=== PATIENT | female | born 1975 | race Caucasian/White ===

== ENCOUNTER 2017-08-24 09:02 | Emergency (ER) | payer OTHER, SELFPAY ==
[2017-08-24 09:03] VITALS: BP 119/74; PULSE 90; RESP 18; TEMP 36.6; O2SAT 98; BMI 35.4
--- NOTE | 2017-08-24 09:13 | ED.VISSUMM ---
- ER Visit Summary Date of Service: 08/24/17 Chief Complaint: Dental pain History of Present Illness: The patient is a 42 F who is otherwise healthy presents to the emergency department dental pain. Patient had symptoms for the past few days. She has widespread dental disease. She last saw dentist a few months ago. She states that she needs most all of her teeth pulled. Over the past 2 days, the pain is worsened. She began to have some swelling in her right cheek today. She denies any trouble speaking or swallowing. She denies any fevers or chills. She has been taking ibuprofen with some relief. Physical Examination: Afebrile, vitals unremarkable. Well-appearing female no acute distress. Posterior oropharynx is widely patent. There is no trismus. There is no stridor. Submental space is soft. Neck is supple. Patient is widespread dental disease. There is tenderness to palpation over cavity of tooth #5. There is no focal abscess. There is minimal swelling of the vehicle mucosa on the right. Test Results: [] Emergency Department Course and Treatment: Patient has no evidence of Andrew angina. Submental space is soft. There is no cellulitis. The patient will be treated with Augmentin and Naprosyn. She does have dental follow-up in place. She will be discharged home, return with any worsening symptoms. Treatment Plan: [] Disposition: Charge Impression: 1. Dental pain 2. Periapical abscess This note was generated with [employer] dictation software. It may contain incorrect words, spelling, and punctuation that were not noted in review of the chart prior to signing ED Disposition - Plan for ED Patient: Chief Complaint: Dental Instructions: ED Abscess Dental Prescriptions: Amox/Clavulanate Tablet [Augmentin Tablet] 875 mg PO Q12H #20 tab Naproxen [Naprosyn] 500 mg PO BID PRN #20 tab Referrals: Care Physician,No Primary [Primary Care Provider] -
[2017-08-24] MEDS: Naproxen 500 MG Tablet PO (09:45)
[2017-08-24] MEDS: Amox/Clavulanate 875 MG Tablet PO (09:45)
== END 2017-08-24 09:59 | disposition home or self-care (01) ==
PROVIDERS: Emergency Provider Emergency Medicine
DX: K04.7 Periapical abscess without sinus (principal); K02.9 Dental caries, unspecified; K08.89 Other specified disorders of teeth and supporting structures; Z87.891 Personal history of nicotine dependence
CPT/HCPCS: 99282

== ENCOUNTER → 2017-11-18 13:59 | Outpatient (CLI) | payer OTHER, SELFPAY ==
--- NOTE | 2017-11-18 15:22 | NEURO ---
NCS and/or EMG Patient Report Ordering Doctor: Ron Funez DATE OF SERVICE: 11/18/17 Faustina Glasgow is a 42-year-old female presents for electrodiagnostic testing of the upper limbs. She reports numbness and tingling in both hands, worse on the right side. Electrodiagnostic findings: Right median motor nerve demonstrates prolonged distal latency with reduced amplitude and normal conduction velocity. Normal left median motor response normal ulnar motor response bilaterally. Median and ulnar F waves are within normal limits. Prolonged right median sensory latency at the wrist. Needle EMG testing shows no evidence of denervation with normal motor unit action potentials. Electrodiagnostic impression: This is an abnormal study. 1. Electrodiagnostic findings demonstrate right-sided median mononeuropathy. This is consistent with a moderate right carpal tunnel syndrome. There is no electrodiagnostic evidence for left-sided carpal tunnel syndrome If there are any further questions please do not hesitate to contact me.
== END ==
PROVIDERS: Visit Provider Specialist
DX: G56.03 Carpal tunnel syndrome, bilateral upper limbs (principal)
CPT/HCPCS: 95886; 95912

== ENCOUNTER 2018-02-09 16:30 | Outpatient (RCR) | payer OTHER, SELFPAY ==
--- NOTE | 2018-01-26 18:34 | HP.OTEVAL ---
Patient's Visit Information LADARIUS FIGUEROA is a 42 year old F, referred to Occupational Therapy by VON Barnett, with a diagnosis of carpal tunnel right/pain left wrist. Date of Evaluation: 01/26/18 Occupational Therapist: Shayla Srivastava - Subjective Subjective: Pt seen for initial occupational therapy evaluation for carpel tunnel release R hand December 11 2017 and has occassional pain in L hand that comes and goes. 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 Pt has been off work since sx. Pt is R hand dominent. Pt able to complete BADL's independently, pt has difficulty opening containers at this time. - Pain Right Hand 4 Pain Intensity Range: 3, 9 Left Hand 0 - Objective Objective/Observation: decreased ROM and strength R hand, increased pain with movement of R hand - ROM Wrist: R 43/77 L 50/85 ROM Comments: RUE and L UE able to complete opposition and make composite fist all without difficulty. 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 Pt will progress w/ R tripod pinch from 0# to 8# by d/c from OT services to increase independence with functional living tasks. Goal:: Pt will progress w/ R AROM wrist flexion and extension by 7' by d/c from OT services to increase independence with functional living tasks. Goal:: Pt will demo no pain R wrist/hand greater than 1/10 by d/c from OT services. Pt will demo no pain L wrist with movement greater than 1/10 by d/c from OT services. Goal:: Pt will be educated on scar massage techniques to complete at home and techniques to decrease hypersensitivity of scar R hand with good understanding and demo 100%x. Goal:: Pt will be educated on joint protection/energy conservation techniques R and L wrist/hand with good understanding and demo 100%x Goal:: Pt will be educated on R UE HEP with good understanding and demo 100%x. - Rehabilitation General Assessment: Pt demo decreased strength and ROM of R wrist/hand limiting indep with ability to open containers and use R dominent hand for functional tasks. Pt has increased pain R hand/wrist as well as occassionally in L wrist. Pt would benefit from direct occupational therapy services to increase strength and AROM R wrist/hand, decrease pain of R and L wrists, educate on scar massage techniques, ways to decrease hypersensitivity of scar, educate on joint protection/energy conservation techniques and R UE HEP to increase pt's quality of life and return to PLOF. Rehabilitation Potential: Good - Anticipated Interventions Anticipated Interventions: A/AAROM/PROM, Strengthening, Edema Control, Scar Care, Massage, Desensitization, Modalities, Joint Protection/Energy Conservation, Fine Motor Coord/Jose Antonio, ADL Training, Education re assistive Equipment, Education re Diagnosis, Education re Self Massage Techniques, Home Program - Visit Plan Frequency: 1-2x /Week Duration: 4-6 Weeks General Plan: Pt would benefit from direct occupational therapy services to increase strength and AROM R wrist/hand, decrease pain of R and L wrists, educate on scar massage techniques and ways to decrease hypersensitivity of scar, educate on joint protection/energy conservation techniques and R UE HEP to increase pt's quality of life and return to PLOF. TEXT: Thank you for the opportunity to evaluate your patient. For Medicare and Medicare HMO plans, please review the plan of care and approve it. It will need to be FAXED BACK to us at [phone] for Medicare purposes. Please let me know if there are questions or concerns regarding this plan of care. Physician Signature: Date:
== END 2018-02-09 19:00 | disposition home or self-care (01) ==
LOC: OT 16:30
PROVIDERS: Referring Provider Physician Assistant Surgical; Visit Provider Physician Assistant Surgical
DX: M25.532 Pain in left wrist (principal); G56.01 Carpal tunnel syndrome, right upper limb
CPT/HCPCS: 97035; 97110; 97165; 97166

== ENCOUNTER 2023-07-30 16:14 | Emergency (ER) | payer OTHER, SELFPAY ==
[2023-07-30 16:14] VITALS: BP 219/80; PULSE 119; RESP 18; TEMP 36.8; O2SAT 98; BMI 36.0
--- NOTE | 2023-07-30 16:28 | EKG12_ITS ---
Test Reason : Blood Pressure : / mmHG Vent. Rate : 091 BPM Atrial Rate : 091 BPM P-R Int : 174 ms QRS Dur : 088 ms QT Int : 362 ms P-R-T Axes : 062 051 034 degrees QTc Int : 445 ms Normal sinus rhythm Normal ECG Confirmed by Natalio Brice ([id number]), commercial production editor BIGG MORILLO ([id number]) on 07/31/2023 10:14:42 AM Referred By: Confirmed By:Natalio Brice
--- NOTE | 2023-07-30 16:29 | CT_ITS ---
EXAMINATION : Head CT w/out contrast HISTORY : headache COMPARISON : None. TECHNIQUE : Multiple contiguous axial images were obtained from the skull base to the vertex without intravenous contrast. A radiation dose optimization technique was used for this scan. FINDINGS : The ventricles and sulci are normal in size. There is no evidence for acute intracranial hemorrhage, mass effect, or midline shift. There is no extra-axial fluid collection. There is normal muñoz-white differentiation, without CT evidence of acute ischemia or infarct. The skull base and calvarium are unremarkable. The orbits are unremarkable. The paranasal sinuses are clear. The mastoid air cells are well-aerated. The soft tissues are unremarkable. CT/Brain/Head without Contrast IMPRESSION: No acute intracranial abnormality. Electronically Signed: Jean Echavarria MD at 17:12 EDT ,
--- NOTE | 2023-07-30 16:30 | EDS_ITS ---
HPI <ROSSI Barragan - Last Filed: 07/30/23 20:40> History of Present Illness Chief Complaint: Dizziness Narrative Narrative: Patient is a 48-year-old female who does not see primary care physician who has no known medical history presents to the emerged department with a sudden onset of dizziness, which she describes of near passing out. Patient states that she had a headache, had numbness and tingling throughout her entire body. Patient states this happened at approximately 2:45 PM today. Patient states she had to sit down, thought she was better than when she got up to walk again, she almost fell like she was going to fall down. Patient denies any chest pain. Patient dates she then got very anxious and was brought here by family. She denies any significant pain however she states that she is having difficulty describing how she feels. PFSH <ROSSI Barragan - Last Filed: 07/30/23 20:40> [facility] Medical History (Updated 07/30/23 @ 20:[address] Arden Ortiz DO) Cholecystectomy planned Allergy/AdvReac Type Severity Reaction Status Date / Time No Known Allergies Allergy Verified 07/30/23 16:15 Surgical History (Updated 07/30/23 @ 16:36 by Enma Nguyễn) H/O: Social History Smoking Status: Current every day smoker tobacco type: cigarettes ROS <ROSSI Barragan - Last Filed: 07/30/23 20:40> ROS ED ROS Narrative Constitutional: Negative for fever, chills, weight loss, weakness Eyes: Negative for vision loss, vision change, double vision ENT: Negative for any sore throat, ear pain, congestion Cardiovascular: Negative for any chest pain, tightness, palpitations Respiratory: Negative for any cough, sputum production, hemoptysis, dyspnea, dyspnea on exertion, orthopnea Gastrointestinal: Negative for any abdominal pain, nausea, vomiting, diarrhea, constipation, blood in stool, blood in vomit : Negative for any urinary frequency, dysuria, retention, blood in urine Muscle skeletal: Negative for any neck pain, back pain Neurological: Positive feeling of headache, dizziness, feelings of full body numbness and tingling. Positive for near syncope Skin: Negative for any rashes, itching, abrasions, lacerations Psychiatric: Negative for any depression, stress, suicidal ideation, homicidal ideation. Positive for anxiety Hematologic: Negative for any excessive bruising, easy bleeding EXAM <ROSSI Barragan - Last Filed: 07/30/23 20:40> Physical Exam Narrative Exam Narrative: Vital signs reviewed. Patient appears anxious, however patient alert acting appropriate. HEET: Head normocephalic atraumatic, TMs clear bilaterally. Posterior pharynx is clear, moist mucous membranes. Nares clear bilaterally. Neck: Supple with no lymphadenopathy or tenderness. No signs of meningismus. Cardiac: Tachycardic rate no murmurs gallops or rubs, equal peripheral pulses bilaterally. Respiratory: Lungs clear to auscultation bilaterally. No chest tenderness. Abdomen: Soft, nontender, nondistended. No abdominal bruit or pulsatile masses. No hepatosplenomegaly Extremities: No peripheral edema, no signs of gross trauma or deformity. Active full range of motion of all extremities. Neuro: Cranial nerves II through XII intact, no focal neurological deficits. NIH stroke scale 0 Skin: Clean dry and intact with no rash, purpura, petechiae, vesicles or pustules. Backs/flank: No CVA tenderness, no midline spinal tenderness, no deformity. Psych: Normal mood and affect. No SI, HI or acute psychosis. Const Vital Signs: 07/30/23 16:14 07/30/23 16:35 07/30/23 16:37 Temperature 98.3 F Temperature Source Temporal Pulse Rate 119 H Respiratory Rate 18 Respiratory Effort Respiratory Pattern Blood Pressure 219/80 H 169/99 H Blood Pressure Mean 126 122 Pulse Ox 98 Oxygen Delivery Method Room Air Room Air 07/30/23 16:39 07/30/23 17:14 07/30/23 18:00 Temperature Temperature Source Pulse Rate 85 89 Respiratory Rate 17 19 H Respiratory Effort Normal Respiratory Pattern Normal Blood Pressure 129/67 H 149/67 H Blood Pressure Mean 87 94 Pulse Ox 97 96 Oxygen Delivery Method Room Air Room Air 07/30/23 20:44 Temperature 97.8 F Temperature Source Pulse Rate 70 Respiratory Rate 16 Respiratory Effort Respiratory Pattern Blood Pressure 139/48 H Blood Pressure Mean 78 Pulse Ox 95 Oxygen Delivery Method Positive well nourished and well developed General Appearance ED: well developed <Dr. Arden Ortiz DO - Last Filed: 07/30/23 23:17> Physical Exam Const Vital Signs: 07/30/23 16:14 07/30/23 16:35 07/30/23 16:37 Temperature 98.3 F Temperature Source Temporal Pulse Rate 119 H Respiratory Rate 18 Respiratory Effort Respiratory Pattern Blood Pressure 219/80 H 169/99 H Blood Pressure Mean 126 122 Pulse Ox 98 Oxygen Delivery Method Room Air Room Air 07/30/23 16:39 07/30/23 17:14 07/30/23 18:00 Temperature Temperature Source Pulse Rate 85 89 Respiratory Rate 17 19 H Respiratory Effort Normal Respiratory Pattern Normal Blood Pressure 129/67 H 149/67 H Blood Pressure Mean 87 94 Pulse Ox 97 96 Oxygen Delivery Method Room Air Room Air 07/30/23 20:44 Temperature 97.8 F Temperature Source Pulse Rate 70 Respiratory Rate 16 Respiratory Effort Respiratory Pattern Blood Pressure 139/48 H Blood Pressure Mean 78 Pulse Ox 95 Oxygen Delivery Method MDM <ROSSI Barragan - Last Filed: 07/30/23 20:40> [facility] Lab Data Labs: Laboratory Results - last 24 hr 07/30/23 07/30/23 16:30 19:15 WBC 8.4 RBC 5.44 H Hgb 14.7 Hct 45.3 MCV 83.3 MCH 27.0 MCHC 32.5 RDW Std Deviation 43.0 RDW Coeff of Leia 14.3 Plt Count 251 MPV 10.4 Immature Gran % (Auto) 0.200 Neut % (Auto) 50.1 Lymph % (Auto) 44.5 H [place] % (Auto) 3.6 Eos % (Auto) 1.2 Baso % (Auto) 0.4 Absolute Neuts (auto) 4.2 Absolute Lymphs (auto) 3.76 Nucleated RBC % 0 Sodium 138 Potassium 3.3 L Chloride 105 Carbon Dioxide 25.0 Anion Gap 8 BUN 12 Creatinine 1.02 Estim Creat Clear Calc 71.21 Est GFR (MDRD) Af Amer 74 Est GFR (MDRD) Non-Af 61 BUN/Creatinine Ratio 11.8 Glucose 109 H Calcium 9.3 Troponin I High Sens 4 11 TSH 5.96 H Free T4 0.95 Radiography Diagnostic Testing: Clinical Impression(s) from Imaging Studies Brain CT 07/30/23 16:29 IMPRESSION: No acute intracranial abnormality. Electronically Signed: Jean Echavarria MD at 17:12 EDT , ADDENDUM: 07/30/23 1737 IMPRESSION: undefined Chest X-Ray 07/30/23 17:00 IMPRESSION: No acute radiographic abnormalities. Electronically Signed: Jean Echavarria MD at 17:56 EDT , Brain MRI 07/30/23 17:41 IMPRESSION: Small right frontal lobe lesion most likely representing meningioma. Otherwise normal MRI of the brain with and without contrast Electronically Signed: Lamin Cordova MD at 19:22 EDT , EKG Normal sinus rhythm: Attestation: I personally reviewed and interpreted this EKG as follows: Comments: Normal sinus rhythm, rate of 91 bpm, HI interval 174 ms, no acute ST elevation, no acute infarct noted. Treatment and Re-Evaluation :: Differential diagnosis includes however is not limited to: CVA/TIA, SC, ACS, dehydration, anxiety attack, hypertensive urgency Patient laboratory values showed a normal CBC, patient's chemistries show slight hypokalemia with a potassium of 3.3, glucose is 109. TSH was slightly elevated at 5.96. Patient did receive a CT scan of the brain, this showed a 1 cm hyperattenuating extra-axial lesion in the right frontal convexity with calcifications and a broad dural based. There is some mild erosive changes of the adjacent colon area. This lesion most likely represents a calcified meningioma, however recommend brain MRI with and without contrast for definitive diagnosis. Secondary to this finding, the patient having head pressure, near syncopal episodes, patient will receive a brain MRI with and without contrast. Patient's blood pressure did decrease to 169/99. On reevaluation, patient was feeling better. Patient's troponin were negative. Patient's MRI of the brain shows small right frontal lobe lesion most likely representing meningioma, otherwise normal MRI of the brain. Chest x-ray was unremarkable. Patient be ambulated without any difficulty. Patient is stable for discharge. She will follow-up with neurology. She was given strict return precaution. Patient stable for discharge. <Dr. Arden Ortiz, DO - Last Filed: 07/30/23 23:17> [facility] Lab Data Attestation: I reviewed the patient's lab results. Labs: Laboratory Results - last 24 hr 07/30/23 07/30/23 16:30 19:15 WBC 8.4 RBC 5.44 H Hgb 14.7 Hct 45.3 MCV 83.3 MCH 27.0 MCHC 32.5 RDW Std Deviation 43.0 RDW Coeff of Leia 14.3 Plt Count 251 MPV 10.4 Immature Gran % (Auto) 0.200 Neut % (Auto) 50.1 Lymph % (Auto) 44.5 H [place] % (Auto) 3.6 Eos % (Auto) 1.2 Baso % (Auto) 0.4 Absolute Neuts (auto) 4.2 Absolute Lymphs (auto) 3.76 Nucleated RBC % 0 Sodium 138 Potassium 3.3 L Chloride 105 Carbon Dioxide 25.0 Anion Gap 8 BUN 12 Creatinine 1.02 Estim Creat Clear Calc 71.21 Est GFR (MDRD) Af Amer 74 Est GFR (MDRD) Non-Af 61 BUN/Creatinine Ratio 11.8 Glucose 109 H Calcium 9.3 Troponin I High Sens 4 11 TSH 5.96 H Free T4 0.95 Radiography Diagnostic Testing: Clinical Impression(s) from Imaging Studies Brain CT 07/30/23 16:29 IMPRESSION: No acute intracranial abnormality. Electronically Signed: Jean Echavarria MD at 17:12 EDT , ADDENDUM: 07/30/23 1737 IMPRESSION: undefined Chest X-Ray 07/30/23 17:00 IMPRESSION: No acute radiographic abnormalities. Electronically Signed: Jean Echavarria MD at 17:56 EDT , Brain MRI 07/30/23 17:41 IMPRESSION: Small right frontal lobe lesion most likely representing meningioma. Otherwise normal MRI of the brain with and without contrast Electronically Signed: Lamin Cordova MD at 19:22 EDT Reading Location ID and State: [address] [place] [address] Tel , Service support , Treatment and Re-Evaluation :: Differential diagnosis includes however is not limited to: CVA/TIA, SC, ACS, dehydration, anxiety attack, hypertensive urgency Patient laboratory values showed a normal CBC, patient's chemistries show slight hypokalemia with a potassium of 3.3, glucose is 109. TSH was slightly elevated at 5.96. Patient did receive a CT scan of the brain, this showed a 1 cm hyperattenuating extra-axial lesion in the right frontal convexity with calcifications and a broad dural based. There is some mild erosive changes of the adjacent colon area. This lesion most likely represents a calcified meningioma, however recommend brain MRI with and without contrast for definitive diagnosis. Secondary to this finding, the patient having head pressure, near syncopal episodes, patient will receive a brain MRI with and without contrast. Patient's blood pressure did decrease to 169/99. On reevaluation, patient was feeling better. Patient's troponin were negative. Patient's MRI of the brain shows small right frontal lobe lesion most likely representing meningioma, otherwise normal MRI of the brain. Chest x-ray was u nremarkable. Patient be ambulated without any difficulty. Patient is stable for discharge. She will follow-up with neurology. She was given strict return precaution. Patient stable for discharge. Attending note: Patient seen and evaluated with bag machine operator. I perform my own [id number] evaluation. I agree with the plan of work-up. Presenting with sudden lightheaded symptoms and shocking sensation to her body. Tobacco history not seen a doctor in a couple years. Presentation blood pressure 219/90. EKG sinus rhythm no acute findings. Two-view chest x-ray to also read by radiology showed no acute process. Patient nontoxic-appearing no meningismus no focal neurologic deficits. CT brain ordered radiology has meningeal type structure right frontal however recommend MRI for definitive findings. MRI studies with and without contrast ordered returning more likely meningioma. Blood pressure improved without any intervention. Labs are stable. TSH elevated however free T4 at it was normal. She is ambulating on reevaluation no difficulties. Discharged with neurology and PCP follow-up. Discharge Plan Triage Chief Complaint: Dizziness ED Midlevel Provider: Khoi Perez ED Provider: Arden Ortiz Dx/Rx/DC Orders Clinical Impression: Near syncope, Meningioma, cerebral, Headache, Elevated blood pressure reading Instructions: Self-Care for Headaches, ED Hypertension, To Be Confirmed, ED Near-Fainting, Uncertain Cause Primary Care Provider: Care Physician,No Primary Referrals: Lesly Cline MD [Med Staff - Active Staff] - 5-7 Days Compa Bolton MD [Non-Staff -Ordering Privileges] - 1-2 Weeks Care Physician,No Primary [Primary Care Provider] - Activity Restrictions/Additional Instructions: MRI of the brain confirms meningioma structure 1.5 x 1.4 cm right frontal lobe. EKG normal. Elevated blood pressure on arrival improved without any treatment. Need to follow-up internal medicine for recheck. Follow-up with neurology for your meningioma. Print Language: [place] Citizen Disposition Disposition: Home, Self Care Discharge Date/Time: 07/30/23 20:46
[2023-07-30] MEDS: 0.9% Normal Saline (1000mL) 1,000 ML 999 ML IV (16:32)
[2023-07-30 16:37] VITALS: BP 169/99
[2023-07-30 16:48] LABS: Absolute Lymphocyte Count 3.76 X10^3/uL (0.83-4.51); Absolute Neutrophil Count 4.2 X10^3/uL (2.0-7.7); Basophil# 0.03 X10^3/uL; Basophil% 0.4 % (0-1); Eosinophils% 1.2 % (0-5); Hematocrit 45.3 % (37-47); Hemoglobin 14.7 g/dL (12.0-15.0); Lymphocyte # 3.76 X10^3/ul (0.83-4.51); Lymphocyte % 44.5 % (19-41); Mean Corp Hgb Conc 32.5 g/dL (32-36); Mean Corpuscular Volume 83.3 fL (81-99); Mean Platelet Vol. 10.4 fl (6.2-12.0); Monocyte% 3.6 % (0-10); NRBC Flagged by Analyzer 0 % (0-5); Neutrophil # 4.23 X10^3/uL (2.7-7.7); Neutrophil % 50.1 % (47-70); Platelet Count 251 K/mm3 (150-450); RBC Distribution Width CV 14.3 % (11.6-14.6); Red Blood Count 5.44 M/mm3 (4.2-5.4); White Blood Count 8.4 K/mm3 (4.4-11.0)
--- NOTE | 2023-07-30 17:00 | RAD_ITS ---
INDICATION: chest pain EXAMINATION/TECHNIQUE: X-RAY - XR Chest 2 Views COMPARISON: None. FINDINGS: The lungs are clear. Tortuous and calcified thoracic aorta. The heart is not enlarged. No pleural effusion or pneumothorax. No acute osseous abnormalities. RAD/Chest PA and Lateral IMPRESSION: No acute radiographic abnormalities. Electronically Signed: Jean Echavarria MD at 17:56 EDT ,
[2023-07-30 17:12] LABS: Anion Gap 8 (5-15); BUN 12 mg/dL (7-18); BUN/Creat Ratio 11.8 RATIO (10-20); Calcium,Total 9.3 mg/dL (8.5-10.1); Chloride 105 mmol/L (98-107); Creatinine, Serum 1.02 mg/dL (0.55-1.02); EST Glomerular Filtration Rate 61 mL/min (>60); Est Glom Filt Rate - Afr Amer 74 mL/min (>60); Estimated Creatinine Clearance 71.21 ml/min; Glucose 109 mg/dL (74-106); Potassium 3.3 mmol/L (3.5-5.1); Sodium Level 138 mmol/L (136-145); Thyroid Stim Hormone (TSH) 5.96 uIU/mL (0.358-3.74); Troponin-I HS (w/2H Reflex) 4 pg/mL (3.0-54.0)
[2023-07-30 17:14] VITALS: BP 129/67; PULSE 85; RESP 17; O2SAT 97
--- NOTE | 2023-07-30 17:41 | MRI_ITS ---
STUDY: MRI BRAIN WITH AND WITHOUT CONTRAST REASON FOR EXAM: Female, 48 years old. dizziness TECHNIQUE: Standardized multiplanar fat and water weighted pulse sequences were obtained. IV 20CC CLARISCAN was administered for the contrast portion of the examination. COMPARISON: CT of the brain July 30, 2023 FINDINGS: Normal size of the ventricles and extra-axial spaces for the patient''s age. Normal white matter tracts of the supratentorial brain. Normal bilateral basal ganglia. Normal thalami. There is no extra-axial fluid accumulation. Normal flow voids within the major intracranial circulation suggesting patency by spin echo criteria. Normal venous enhancement. There is a relatively homogeneous enhancing dural-based nodule in the right frontal lobe without appreciable edema or mass effect measuring 1.5 x 1.4 cm likely meningioma. Normal sella turcica, pituitary gland, infundibular stalk, optic chiasm and hypothalamus. Normal tectal plate and pineal gland. Normal midbrain, lou and medulla. Normal cerebellum. Normal basal cisterns. Normal bilateral temporal bones. Normal bilateral internal auditory canals. No demonstrated orbital abnormality, within the constraints of a routine brain study. Minor mucosal thickening of left maxillary sinus. Normal calvarium and skull base. Normal visualized soft tissue structures. Normal visualized upper cervical spine. MRI/Brain W/WO Contrast IMPRESSION: Small right frontal lobe lesion most likely representing meningioma. Otherwise normal MRI of the brain with and without contrast Electronically Signed: Lamin Cordova MD at 19:22 EDT ,
[2023-07-30 18:00] VITALS: BP 149/67; PULSE 89; RESP 19; O2SAT 96
[2023-07-30] MEDS: LORazepam 1 MG Tablet PO (18:12)
[2023-07-30 18:37] LABS: Reflex Troponin-HS? (from REC) Y
[2023-07-30 19:45] LABS: Troponin-I HS 11 pg/mL (3.0-54.0)
[2023-07-30 20:16] LABS: T4 Free Direct 0.95 ng/dL (0.76-1.46)
[2023-07-30 20:44] VITALS: BP 139/48; PULSE 70; RESP 16; TEMP 36.6; O2SAT 95
== END 2023-07-30 20:46 | disposition home or self-care (01) ==
PROVIDERS: Nurse Practitioner; Emergency Provider Emergency Medicine; Visit Provider Emergency Medicine
DX: R55 Syncope and collapse (principal); D32.0 Benign neoplasm of cerebral meninges; R03.0 Elevated blood-pressure reading, without diagnosis of hypertension; E87.6 Hypokalemia; F17.210 Nicotine dependence, cigarettes, uncomplicated
CPT/HCPCS: 70450; 70553; 71046; 80048; 84439; 84443; 84484; 85025; 93005; 96360; 96361; 99284; A9575; J7030; A4216

== ENCOUNTER → 2023-08-11 | Outpatient (CLI) | payer OTHER, SELFPAY ==
[2023-08-11 16:32] LABS: Cholesterol 194 mg/dL (200); High Density Lipoprotein 26 mg/dL; Magnesium 2.7 mg/dL (1.6-2.6); Triglycerides 290 mg/dL; Very Low Density Lipoprotein 58 mg/dL (5-40)
[2023-08-11 17:05] LABS: Vitamin B12 401 pg/mL (211-911)
[2023-08-11 17:18] LABS: Hemoglobin A1c 5.6 % (3.8-5.6)
== END | disposition home or self-care (01) ==
LOC: BIMLAB 13:44
PROVIDERS: Nurse Practitioner; PCP Family Medicine; Referring Provider Family Medicine; Visit Provider Family Medicine
DX: Z00.00 Encounter for general adult medical examination without abnormal findings (principal); M79.2 Neuralgia and neuritis, unspecified
CPT/HCPCS: 36415; 80061; 82607; 83036; 83735

== ENCOUNTER 2023-08-16 12:18 | Emergency (ER) | payer OTHER, SELFPAY ==
[2023-08-16 12:19] VITALS: BP 151/85; PULSE 92; RESP 18; TEMP 36.4; O2SAT 98; BMI 35.0
[2023-08-16 13:05] VITALS: BP 151/85; PULSE 92; RESP 18; TEMP 36.4; O2SAT 98
--- NOTE | 2023-08-16 13:05 | RAD_ITS ---
STUDY: X-RAY CHEST REASON FOR EXAM: Female, 48 years old. [place] TECHNIQUE: Single AP portable view of the chest. COMPARISON: 07/30/2023 FINDINGS: The lungs are clear and expanded. There is no demonstrated pleural abnormality. Normal size heart. Normal mediastinum and rosa. Normal visualized pulmonary arteries. Normal visualized aortic arch and descending thoracic aorta. Normal visualized thoracic spine. Normal visualized ribs, clavicles, and shoulders. There is no demonstrated abnormality of the visualized soft tissue structures of the upper abdomen. RAD/Chest 1 View (Portable) IMPRESSION: Normal x-ray examination of the chest. Electronically Signed: Pierre Mayo MD at 13:25 EDT ,
[2023-08-16 13:15] LABS: Absolute Lymphocyte Count 1.93 X10^3/uL (0.83-4.51); Absolute Neutrophil Count 5.1 X10^3/uL (2.0-7.7); Basophil# 0.04 X10^3/uL; Basophil% 0.5 % (0-1); Eosinophil# 0.03 X10^3/uL; Eosinophils% 0.4 % (0-5); Hematocrit 49.9 % (37-47); Hemoglobin 16.1 g/dL (12.0-15.0); Lymphocyte # 1.93 X10^3/ul (0.83-4.51); Lymphocyte % 26.3 % (19-41); Mean Corp Hgb Conc 32.3 g/dL (32-36); Mean Corpuscular Hgb 27.1 pg (27.0-32.0); Mean Platelet Vol. 10.7 fl (6.2-12.0); Monocyte# 0.22 X10^3/uL; NRBC Flagged by Analyzer 0 % (0-5); Neutrophil # 5.11 X10^3/uL (2.7-7.7); Neutrophil % 69.5 % (47-70); Platelet Count 268 K/mm3 (150-450); RBC Distribution Width CV 14.2 % (11.6-14.6); RBC Distribution Width SD 43.4 fl (35.1-43.9); Red Blood Count 5.94 M/mm3 (4.2-5.4); White Blood Count 7.4 K/mm3 (4.4-11.0)
[2023-08-16 13:28] LABS: Anion Gap 6 (5-15); BUN 14 mg/dL (7-18); BUN/Creat Ratio 12.7 RATIO (10-20); Calcium,Total 9.6 mg/dL (8.5-10.1); Chloride 107 mmol/L (98-107); EST Glomerular Filtration Rate 56 mL/min (>60); Est Glom Filt Rate - Afr Amer 68 mL/min (>60); Estimated Creatinine Clearance 69.92 ml/min; Glucose 110 mg/dL (74-106); Potassium 4.1 mmol/L (3.5-5.1); Sodium Level 138 mmol/L (136-145)
--- NOTE | 2023-08-16 14:04 | EKG12_ITS ---
Test Reason : GENERAL Blood Pressure : / mmHG Vent. Rate : 067 BPM Atrial Rate : 067 BPM P-R Int : 144 ms QRS Dur : 078 ms QT Int : 390 ms P-R-T Axes : 023 051 048 degrees QTc Int : 412 ms Normal sinus rhythm Normal ECG Confirmed by Natalio Brice ([id number]), city editor BIGG MORILLO ([id number]) on 08/17/2023 11:24:05 AM Referred By: Confirmed By:Natalio Brice
--- NOTE | 2023-08-16 14:06 | EX.ED.DYSGE1 ---
HPI History of Present Illness Chief Complaint: General Illness Informant: patient Narrative Narrative: 48-year-old female presents for symptoms of just not feeling well for at least 3 weeks. She had the symptoms the last time she was here, which is when she had a CT and an MRI diagnosing a meningioma. She was referred to neurology, but states that she is unable to get into see anyone for an appointment until almost a year away. She followed up with her primary care nurse practitioner who put her on hydroxyzine for the symptoms. She states they are making her feel more tired but have not helped anything. Basically, she states she feels dizzy like she is falling. If she closes her eyes and states still she just feels like she is falling. She is unsure if movements or position changes or head movements are triggering or worsening any of the symptoms, she is just not sure. She denies any presyncopal or syncopal episodes but states it does feel like lightheadedness somewhat but states it feels weird. She states something is wrong she is not sure what. She is also having intermittent shortness of breath and then while she is feeling out of breath she notices that her heart is racing. These are not associated specifically with any dizziness that is worse or different. She denies any chest pressure or heaviness associated with this, but she tends to have tingling all over her body, like I am having a seizure but I am not shaking. It seems to be completely random whenever she gets dyspneic and goes away on its own. She has a mild smoker's cough, and does not know that anything is necessarily been worse. She states yesterday she slept all day. [facility] Medical History Vitamin deficiency Gallstones Carpal tunnel syndrome Cholecystectomy planned Home Medications ?Medication ?Instructions ?Recorded ?Last Taken ?Type meclizine 25 mg tablet 25 mg PO Q8H PRN PRN Dizziness #20 08/16/23 Unknown Rx tabs Allergy/AdvReac Type Severity Reaction Status Date / Time No Known Allergies Allergy Verified 08/16/23 12:19 Family History Mother Diabetes Father Heart disease Myocardial infarction, Onset Age: 46 Surgical History History of carpal tunnel surgery H/O: Social History household members: spouse and children housing: house current occupational status: employed current occupation: [employer] Smoking Status: Current every day smoker tobacco type: cigarettes alcohol intake: never substance use type: does not use what type of physical activity do you participate in: none seatbelt use: always do you feel safe at home: Yes ROS ROS ED Constitutional Constitutional ED: Reports fatigue and malaise; Denies chills or fever(s) Eyes Eyes: Denies change in vision or diplopia ENT ENT ED: Reports as per HPI and vertigo; Denies ear pain, epistaxis, headache(s), hearing loss, nasal congestion, rhinorrhea, sore throat or tinnitus Cardiovascular Cardiovascular: Reports as per HPI and racing heartbeat; Denies chest pain Respiratory/Chest Respiratory/Chest: Reports cough and dyspnea; Denies sputum Gastrointestinal Gastrointestinal: Denies abdominal pain, diarrhea, nausea or vomiting Genitourinary Genitourinary ED: Denies dysuria or hematuria Musculoskeletal Musculoskeletal: Denies back pain or neck pain Integumentary Denies abscess or rash Neurologic Neurologic: Reports paresthesias RUE, RLE, LUE and LLE; Denies headache(s) or weakness Psychiatric Psychiatric: Denies suicidal thoughts EXAM Physical Exam Const Vital Signs: 08/16/23 12:19 08/16/23 13:05 08/16/23 14:11 Temperature 97.6 F L 97.6 F L Temperature Source Temporal Temporal Pulse Rate 92 92 Respiratory Rate 18 18 Respiratory Effort Normal Non-Labored Respiratory Pattern Normal Blood Pressure 151/85 H 151/85 H Blood Pressure Mean 107 107 Pulse Ox 98 98 Oxygen Delivery Method Room Air Room Air 08/16/23 14:18 08/16/23 16:00 Temperature Temperature Source Pulse Rate 67 78 Respiratory Rate 16 18 Respiratory Effort Respiratory Pattern Blood Pressure 112/77 114/72 Blood Pressure Mean 88 86 Pulse Ox 96 97 Oxygen Delivery Method Room Air Room Air Positive well nourished and well developed General Appearance ED: well developed and NAD HEENT Reports moist mucous membranes HEENT Narrative: Left TM with slight erythema but not bulging or loss of light reflex, no perforation or otorrhea, right TM normal. normocephalic and atraumatic Eyes PERRL and EOMs intact bilaterally Neck full ROM and supple Resp normal respiratory effort and clear to auscultation bilaterally Cardio regular rate, regular rhythm and no murmurs GI non-tender and non-distended Auscultation: normoactive bowel sounds Palpation: soft Back/Spine no CVA tenderness General Back: other FROM Extremity normal to inspection General Extremety ED: Negative for edema, pulses abnormal or tenderness General Extremity: Negative for edema or pulses abnormal Neuro oriented x3, CN's II-XII intact bilaterally and no sensory deficits noted Neuro Narrative: NIHSS 0. Normal athcit-vs-txft and cuby-hn-yshn bilaterally. Normal reflexes. No clonus. Downgoing toes. No pathologic nystagmus on ocular exam. 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 No dysarthria. Sensorium / Orientation: awake and alert Motor Exam: strength 5/5 throughout Psych mental status grossly normal Skin no rashes or lesions noted and no wounds MDM MDM MDM Narrative Medical decision making narrative: Patient sounds like she is having and disequilibrium, some type of vertiginous symptoms. Hydroxyzine is not working so good to try meclizine while we are running testing. Her basic labs are all normal, chest x-ray 1 view on my interpretation is normal, I am adding a D-dimer to rule out pulmonary embolus, Monospot to rule out mononucleosis, COVID/influenza/RSV swab to rule out those infections, urinalysis rule out UTI, and EKG and troponin to rule out cardiac etiologies that are acute, and I reviewed her prior ER visit. She was complaining of dizziness then and was saying that it was very hard to describe. She had a CT and an MRI that showed a small frontal meningioma without mass effect, therefore I do not think the mass is necessarily causing the symptoms. Since the MRI did not show any signs of ischemia or any other acute abnormality, and she had the symptoms then, this likely rules out stroke. All of the above tests were negative including the D-dimer. EKG on my interpretation is normal. This is reassuring to the patient and rules out lots of other causes of her feeling poorly. Going back to her symptoms of feeling like she is having movement and falling even when she closes her eyes and remain still, that may be the cause of her symptoms. She does have some asymmetry in her ears with some redness in the left ear. The MRI did not show anything in the left otic area, but since he has been having symptoms for 3 weeks I would refer her to ENT for further evaluation of this. I think this is vestibular until proven otherwise. She was given meclizine here while we were waiting for results, and she felt much better afterwards. I prescribing her this and advising her to discontinue the hydroxyzine. Lab Data Attestation: I reviewed the patient's lab results. Labs: Laboratory Results - last 24 hr 08/16/23 08/16/23 08/16/23 12:40 14:05 15:15 WBC 7.4 RBC 5.94 H Hgb 16.1 H Hct 49.9 H MCV 84.0 MCH 27.1 MCHC 32.3 RDW Std Deviation 43.4 RDW Coeff of Leia 14.2 Plt Count 268 MPV 10.7 Immature Gran % (Auto) 0.300 Neut % (Auto) 69.5 Lymph % (Auto) 26.3 [place] % (Auto) 3.0 Eos % (Auto) 0.4 Baso % (Auto) 0.5 Absolute Neuts (auto) 5.1 Absolute Lymphs (auto) 1.93 Nucleated RBC % 0 D-Dimer Quant (PE/DVT) 0.41 Sodium 138 Potassium 4.1 Chloride 107 Carbon Dioxide 25.0 Anion Gap 6 BUN 14 Creatinine 1.10 H Estim Creat Clear Calc 69.92 Est GFR (MDRD) Af Amer 68 Est GFR (MDRD) Non-Af 56 L BUN/Creatinine Ratio 12.7 Glucose 110 H Calcium 9.6 Troponin I High Sens < 3 L Urine Color Yellow Urine Clarity Clear Urine pH 6.5 Ur Specific [place] 1.010 Urine Protein Negative Urine Glucose (UA) Normal Urine Ketones Negative Urine Occult Blood Negative Urine Nitrite Negative Urine Bilirubin Negative Urine Urobilinogen Normal Ur Leukocyte Esterase Negative Urine RBC 0 SEEN Urine WBC 0 SEEN Ur Squamous Epith Cells 0 SEEN Urine Bacteria 0 SEEN Urine Mucus 0 SEEN Monoscreen Negative Radiography Diagnostic Testing: Clinical Impression(s) from Imaging Studies Chest X-Ray 08/16/23 13:05 IMPRESSION: Normal x-ray examination of the chest. Electronically Signed: Pierre Mayo MD at 13:25 EDT , Rhythm Strip Rhythm Strip: Sinus Rhythm Rate: 90 Ectopy: None EKG Initial EKG: Attestation: I personally reviewed and interpreted this EKG as follows: Interpretation: Sinus Rhythm and No Acute Injury Pattern Comments: normal ekg Discharge Plan Triage Chief Complaint: General Illness ED Provider: Juan Arnett Dx/Rx/DC Orders Clinical Impression: Vestibular disequilibrium Instructions: Vertigo Inner Ear Problems Prescriptions: New meclizine 25 mg tablet 25 mg PO Q8H PRN PRN (Reason: Dizziness) Qty: 20 0RF Discontinued hydroxyzine HCl 25 mg tablet 25 mg PO BID PRN (Reason: anxiety) Qty: 30 0RF Primary Care Provider: Rigoberto Hernandez Referrals: Rigoberto Hernandez DO [Primary Care Provider] - Jan Ty MD [Med Staff - Active Staff] - (call for appt (ENT)) Print Language: Indonesian Disposition Disposition: Home, Self Care
[2023-08-16 14:18] VITALS: BP 112/77; PULSE 67; RESP 16; O2SAT 96
[2023-08-16] MEDS: Meclizine HCl 25 MG Tablet PO (14:20)
[2023-08-16 14:25] LABS: D-Dimer Quantitative (DVT/PE) 0.41 FEU/ug/m (0.27-0.49)
[2023-08-16 14:25] LABS: Internal QC Validated? YES +Cl - CLEAR BKGD; Monotest Negative (Negative); Record Kit Lot#, Mono 13241033
[2023-08-16 14:38] LABS: Troponin-I HS < 3 pg/mL (3.0-54.0)
[2023-08-16 15:19] LABS: Bacteria 0 SEEN /hpf (None Seen); Mucous, Urine 0 SEEN /hpf (<or=2+); Red Blood Cells-Urine 0 SEEN /hpf (0-5); Squamous Epithelial Cells - UA 0 SEEN /hpf (5-10); White Blood Cells 0 SEEN /hpf (0-5)
[2023-08-16 15:36] LABS: Color, Urine Yellow (Yellow); Glucose, Dipstick Normal (Normal); Ketone-Dipstick Negative (Negative); Leukocyte Esterase-Dipstick Negative /ul (Negative); Nitrite-Dipstick Negative (Negative); Occult Blood-Urine Negative /ul (Negative); Protein-Dipstick Negative (Negative); Urine Bilirubin Dipstick Negative (Negative); Urine Clarity Clear (Clear); Urine Urobilinogen Normal (Normal); Urine pH 6.5 (5.0 - 8.0)
[2023-08-16 16:00] VITALS: BP 114/72; PULSE 78; RESP 18; O2SAT 97
[2023-08-16 16:36] VITALS: BP 142/64; PULSE 70; RESP 18; TEMP 36.4; O2SAT 98
== END 2023-08-16 16:44 | disposition home or self-care (01) ==
PROVIDERS: Emergency Provider Emergency Medicine; PCP Family Medicine; Visit Provider Emergency Medicine
DX: H81.90 Unspecified disorder of vestibular function, unspecified ear (principal); J41.0 Simple chronic bronchitis; D32.9 Benign neoplasm of meninges, unspecified; F17.210 Nicotine dependence, cigarettes, uncomplicated; Z79.899 Other long term (current) drug therapy
CPT/HCPCS: 71045; 80048; 81001; 84484; 85025; 85379; 86308; 87631; 93005; 99284

== ENCOUNTER → 2023-08-25 | Outpatient (CLI) | payer OTHER, SELFPAY ==
[2023-08-25 15:36] LABS: Erythrocyte Sedimentation Rate 21 mm/hr (0-30)
[2023-08-25 16:19] LABS: Thyroid Stim Hormone (TSH) 4.87 uIU/mL (0.358-3.74)
[2023-08-28 14:09] LABS: Anti-Centromere B Ab <0.2 AI (0.0-0.9); Anti-Chromatin <0.2 AI (0.0-0.9); Anti-Jo <0.2 AI (0.0-0.9); Anti-Nuclear Antibody Test Negative (.); Anti-Scleroderma-70 AB <0.2 AI (0.0-0.9); Anti-dsDNA Ab <1 IU/mL (0-9); RNP Ab 0.2 AI (0.0-0.9); SJOGREN'S Anti-SS-A test < 0.2 AI (0.0-0.9); SJOGREN'S Anti-SS-B test < 0.2 AI (0.0-0.9); Smith Ab <0.2 AI (0.0-0.9)
== END | disposition home or self-care (01) ==
LOC: BIMLAB 12:04
PROVIDERS: PCP Internal Medicine; Referring Provider Internal Medicine; Visit Provider Internal Medicine
DX: R42 Dizziness and giddiness (principal); R20.8 Other disturbances of skin sensation; R53.83 Other fatigue
CPT/HCPCS: 36415; 82306; 84443; 85652; 86038; 86140; 86225; 86235

== ENCOUNTER 2023-08-28 14:26 | Emergency (ER) | payer OTHER, SELFPAY ==
[2023-08-28 14:27] VITALS: BP 154/72; PULSE 76; RESP 15; TEMP 36.7; O2SAT 99; BMI 35.4
--- NOTE | 2023-08-28 14:32 | RAD_ITS ---
STUDY: X-RAY CHEST REASON FOR EXAM: Female, 48 years old. SOB TECHNIQUE: Single AP portable view of the chest. COMPARISON: Comparison is made with prior study dated 04/17/2023. FINDINGS: The lungs are clear and expanded. There is no demonstrated pleural abnormality. Normal size heart. Normal mediastinum and rosa. Normal visualized pulmonary arteries. Normal visualized aortic arch and descending thoracic aorta. Normal visualized thoracic spine. Normal visualized ribs, clavicles, and shoulders. There is no demonstrated abnormality of the visualized soft tissue structures of the upper abdomen. RAD/Chest 1 View (Portable) IMPRESSION: Normal x-ray examination of the chest. Electronically Signed: Deyvi Olivares MD at 14:59 EDT ,
[2023-08-28 14:37] VITALS: O2SAT 94
--- NOTE | 2023-08-28 15:13 | EX.ED.DYSGE1 ---
HPI <VON Carr - Last Filed: 08/28/23 16:09> History of Present Illness Chief Complaint: Shortness of Breath Narrative Narrative: 48-year-old female states for over a month she has had tingling all throughout her body as well as chest heaviness, heart racing, shortness of breath, and nausea. She states the tingling is almost constant and all over but most intense in her forearms and hands. She states she has been seen for this multiple times in the emergency room. Her most recent visit on 08/16/2023 she also was having disequilibrium and was prescribed meclizine. She is taking meclizine once a day and states the feeling like she is falling over has resolved but the other symptoms persist. She followed up with her primary care doctor, Dr. Annette Ahn, and had a panel of blood work. She is scheduled to have a stress test and tilt table test next month as well as see a neurologist. She was prescribed hydroxyzine but it did not help so she stopped taking it. The only medication she is taking now is meclizine as needed and [id number] GERD medication. She states the tingling and heart racing have been interfering with her working over the last few days and she did not know what to do so she came back to the emergency department. She smokes 5 cigarettes daily. Denies alcohol or drug use. [facility] <VON Carr - Last Filed: 08/28/23 16:09> [facility] Medical History (Updated 08/28/23 @ 15:56 by VON Carr) Vitamin deficiency Gallstones Carpal tunnel syndrome Home Medications ?Medication ?Instructions ?Recorded ?Last Taken ?Type meclizine 25 mg tablet 25 mg PO Q8H PRN PRN Dizziness #20 08/16/23 Unknown Rx tabs [email or web address].stocking,thigh,reg,med #24 ea 08/25/23 Unknown Rx escitalopram oxalate 10 mg tablet 10 mg PO DAILY #30 tabs 08/28/23 Unknown Rx (Lexapro) Allergy/AdvReac Type Severity Reaction Status Date / Time No Known Allergies Allergy Verified 08/28/23 14:29 Family History Mother Diabetes Father Heart disease Myocardial infarction, Onset Age: 46 Surgical History S/P cholecystectomy History of carpal tunnel surgery H/O: Social History adopted: No household members: spouse, family and children housing: house number of children: 5 current occupational status: employed current occupation: [employer] pets and animals: Yes sexually active: Yes Smoking Status: Current every day smoker tobacco type: cigarettes Tobacco: How many years used: 35 Electronic Cigarette Use: not used quit status: considering quitting alcohol intake: never substance use type: does not use caffeine: Yes (4) Type: carbonated beverages what type of physical activity do you participate in: none seatbelt use: always do you feel safe at home: Yes ROS <VON Carr - Last Filed: 08/28/23 16:09> ROS ED ROS Narrative Constitutional: Negative for fever, chills, malaise. CVS: Positive for palpitations, chest heaviness. Respiratory: Negative for shortness of breath, cough. GI: Positive for nausea. No abdominal pain or vomiting. Neuro: Negative for headache. EXAM <VON Carr - Last Filed: 08/28/23 16:09> Physical Exam Narrative Exam Narrative: CONST: Patient sitting in no acute distress. EYES: Normal inspection. NECK: Normal inspection. RESP: No respiratory distress, CTAB. CVS: Regular rate and rhythm, no murmur, no gallop. ABD: Soft and nontender, no guarding or rebound, nondistended. SKIN: Color normal, no rash, warm, dry, intact. EXTREMITIES: Normal appearance, no pedal edema. NEURO: Alert and answering questions appropriately. 5/5 strength upper and lower extremities, normal sensation, 2+ radial DP pulses. Normal finger-nose and rozr-tg-oxmt. Normal gait. PSYCH: Anxious. Const Vital Signs: 08/28/23 14:27 08/28/23 14:37 08/28/23 16:11 Temperature 98.1 F 98 F Temperature Source Temporal Pulse Rate 76 78 Respiratory Rate 15 14 Respiratory Effort Non-Labored Short of Breath Blood Pressure 154/72 H 142/81 H Blood Pressure Mean 99 101 Pulse Ox 99 97 Oxygen Delivery Method Room Air Room Air <Dr. Osvaldo Olsen, - Last Filed: 08/28/23 16:21> Physical Exam Const Vital Signs: 08/28/23 14:27 08/28/23 14:37 08/28/23 16:11 Temperature 98.1 F 98 F Temperature Source Temporal Pulse Rate 76 78 Respiratory Rate 15 14 Respiratory Effort Non-Labored Short of Breath Blood Pressure 154/72 H 142/81 H Blood Pressure Mean 99 101 Pulse Ox 99 97 Oxygen Delivery Method Room Air Room Air MDM <VON Carr - Last Filed: 08/28/23 16:09> [facility] Narrative Medical decision making narrative: Patient presents with constellation of symptoms including diffuse body paresthesias, chest heaviness, palpitations ongoing for a month. She has been evaluated for the symptoms in the ED on 07/29 and 08/15 with no cause found. I reviewed her workup which was very thorough including basic labs, TSH, troponin, D-dimer, viral swab testing, mono, CT brain and MRI brain which were all unremarkable except for a small right frontal meningioma which would not explain her symptoms. Her symptoms have not changed. She is very anxious during my exam. She has a nonfocal neurological exam. Protocol CXR shows no acute findings. I discussed with her I do not think repeating blood work would be of benefit. Since her last visit on 08/15 she reports she saw her primary care doctor and had even more blood work done and she is scheduled for a stress test, tilt table test, and neurology appointment in September. I spoke with Santa the nurse practitioner at her primary care's office. She states she seen the patient twice and Dr. Wright seen her once recently for the symptoms. The patient was asking for [place] paperwork but since they did not know the etiology of her symptoms they did not fill this out. She had offered an SSRI for anxiety but the patient declined stating she did not think it was anxiety so they had agreed to try hydroxyzine as needed. In discussion with the patient today she states she is willing to try something daily for anxiety as this may be contributing. Santa the VALET ATTENDANT recommended Lexapro 10 mg once daily and she will follow-up with their office. She was discharged in stable condition. Radiography Diagnostic Testing: Clinical Impression(s) from Imaging Studies Chest X-Ray 08/28/23 14:32 IMPRESSION: Normal x-ray examination of the chest. Electronically Signed: Deyvi Olivares MD at 14:59 EDT , ED attending interpretation of 1-view chest x-ray shows normal heart size, no acute infiltrate, edema, or effusion. <Dr. Osvaldo Olsen, DO - Last Filed: 08/28/23 16:21> [facility] Narrative Medical decision making narrative: Patient presents with constellation of symptoms including diffuse body paresthesias, chest heaviness, palpitations ongoing for a month. She has been evaluated for the symptoms in the ED on 07/29 and 08/15 with no cause found. I reviewed her workup which was very thorough including basic labs, TSH, troponin, D-dimer, viral swab testing, mono, CT brain and MRI brain which were all unremarkable except for a small right frontal meningioma which would not explain her symptoms. Her symptoms have not changed. She is very anxious during my exam. She has a nonfocal neurological exam. Protocol CXR shows no acute findings. I discussed with her I do not think repeating blood work would be of benefit. Since her last visit on 08/15 she reports she saw her primary care doctor and had even more blood work done and she is scheduled for a stress test, tilt table test, and neurology appointment in September. I spoke with Santa the nurse practitioner at her primary care's office. She states she seen the patient twice and Dr. Wright seen her once recently for the symptoms. The patient was asking for FMLA paperwork but since they did not know the etiology of her symptoms they did not fill this out. She had offered an SSRI for anxiety but the patient declined stating she did not think it was anxiety so they had agreed to try hydroxyzine as needed. In discussion with the patient today she states she is willing to try something daily for anxiety as this may be contributing. Santa the VALET ATTENDANT recommended Lexapro 10 mg once daily and she will follow-up with their office. She was discharged in stable condition. This patient was seen with a PA/VALET ATTENDANT Individually assessed they patient including history and physical. I have reviewed everything on the chart that is available and agree with the documentation provided by the PA/VALET ATTENDANT including discussion about the assessment, treatment plan, discussion, and return precautions. 48-year-old female presenting with multiple ongoing symptoms. She has had a cardiac workup and followed up with her primary doctor after this. Patient was started on hydroxyzine for anxiety but this did not help her at all to be retired. She scheduled to see neurology, however the patient does not know why she does not have any neurologic deficits. She assumes it is because she gets electrical shocks in there were concerned that there was something neurological. Patient is scheduled for a stress test, tilt table test, as well. After discussing this with her at length it sounds like she does have anxiety and she is getting numbness and tingling in her hands and feet and she does feel like she is getting electrical shock sensation. I did discuss with her if she would be willing to start anxiety medicine for home and she states that she would do anything. We discussed this with the nurse practitioner who is on-call for Dr. Ahn and she had told us that the patient initially declined this. In addition the patient is trying to have FMLA paperwork filled out because he is having trouble working secondary to this anxious feeling. She has no history of anxiety in the past. She denies any traumatic occurrences that would have driven her have anxiety. She is not depressed. We discussed with the nurse practitioner again who recommended starting her on Lexapro 10 mg. We did obtain a chest x-ray today which was negative on my interpretation. I do not believe she needs another workup. Patient amenable this plan. Discharged in stable condition. Radiography Diagnostic Testing: Clinical Impression(s) from Imaging Studies Chest X-Ray 08/28/23 14:32 IMPRESSION: Normal x-ray examination of the chest. Electronically Signed: Deyvi Olivares MD at 14:59 EDT , Discharge Plan Triage Chief Complaint: Shortness of Breath ED Midlevel Provider: Jennifer Waite ED Provider: Osvaldo Olsen Dx/Rx/DC Orders Clinical Impression: Paresthesias, Chest pain Instructions: ED Paraesthesias Prescriptions: New escitalopram oxalate [Lexapro] 10 mg tablet 10 mg PO DAILY Qty: 30 0RF No Action (DME) marisabel.stocking,thigh,reg,med Misc See Rx Instructions .Route Qty: 24 0RF Rx Instructions: As directed meclizine 25 mg tablet 25 mg PO Q8H PRN PRN (Reason: Dizziness) Qty: 20 0RF Primary Care Provider: Tammy Ahn Referrals: Tammy Ahn MD [Primary Care Provider] - Activity Restrictions/Additional Instructions: I am not sure what is causing your symptoms. I spoke with primary care office and they recommended you complete the testing that is ordered in the neurology appointment. Print Language: Malawian Disposition Disposition: Home, Self Care Discharge Date/Time: 08/28/23 16:11
[2023-08-28 16:11] VITALS: BP 142/81; PULSE 78; RESP 14; TEMP 36.6; O2SAT 97
== END 2023-08-28 16:11 | disposition home or self-care (01) ==
PROVIDERS: Emergency Provider Student in an Organized Health Care Education/Training Program; PCP Internal Medicine; Visit Provider Student in an Organized Health Care Education/Training Program
DX: R20.2 Paresthesia of skin (principal); D32.9 Benign neoplasm of meninges, unspecified; R00.2 Palpitations; R07.9 Chest pain, unspecified; F17.210 Nicotine dependence, cigarettes, uncomplicated; F41.9 Anxiety disorder, unspecified; R11.0 Nausea
CPT/HCPCS: 71045; 99282

== ENCOUNTER 2023-09-28 00:57 | Emergency (ER) | payer OTHER, SELFPAY ==
[2023-09-28] VITALS (8 sets, daily range): BP systolic 124–147; BP diastolic 53–79; PULSE 67–91; RESP 8–19; TEMP 35.9–36.2; O2SAT 95–99; BMI 34.3
--- NOTE | 2023-09-28 01:30 | EKG12_ITS ---
Test Reason : PALPITATIONS Blood Pressure : / mmHG Vent. Rate : 082 BPM Atrial Rate : 082 BPM P-R Int : 150 ms QRS Dur : 086 ms QT Int : 374 ms P-R-T Axes : 071 058 062 degrees QTc Int : 436 ms Normal sinus rhythm Normal ECG Confirmed by JOHANA WONG, ROMELIA ([id number]), video editor KELLY VINCENT ([id number]) on 09/29/2023 8:32:25 AM Referred By: TONYA Confirmed By:ROMELIA VAUGHN MD
--- NOTE | 2023-09-28 01:30 | RAD_ITS ---
INDICATION: CP EXAMINATION/TECHNIQUE: X-RAY - XR Chest 1 View AP portable. 1:31 AM COMPARISON: 08/28/2023 FINDINGS: LINES/DEVICES: None. LUNGS: No consolidation. No pneumothorax. MEDIASTINUM: Unremarkable. CARDIAC SILHOUETTE: Not enlarged. BONES AND SOFT TISSUES: No acute abnormalities. RAD/Chest 1 View (Portable) IMPRESSION: No evidence of active intrathoracic disease. Electronically Signed: Tessa Hamm MD at 2:04 EDT ,
[2023-09-28 02:10] LABS: Absolute Lymphocyte Count 2.36 X10^3/uL (0.83-4.51); Absolute Neutrophil Count 6.6 X10^3/uL (2.0-7.7); Basophil# 0.05 X10^3/uL; Basophil% 0.5 % (0-1); Eosinophil# 0.05 X10^3/uL; Eosinophils% 0.5 % (0-5); Hematocrit 46.8 % (37-47); Hemoglobin 15.2 g/dL (12.0-15.0); Lymphocyte # 2.36 X10^3/ul (0.83-4.51); Lymphocyte % 25.1 % (19-41); Mean Corp Hgb Conc 32.5 g/dL (32-36); Mean Corpuscular Hgb 26.8 pg (27.0-32.0); Mean Corpuscular Volume 82.5 fL (81-99); Mean Platelet Vol. 10.2 fl (6.2-12.0); Monocyte# 0.31 X10^3/uL; Monocyte% 3.3 % (0-10); NRBC Flagged by Analyzer 0 % (0-5); Neutrophil # 6.59 X10^3/uL (2.7-7.7); Neutrophil % 70.3 % (47-70); Platelet Count 241 K/mm3 (150-450); RBC Distribution Width CV 14.6 % (11.6-14.6); RBC Distribution Width SD 43.8 fl (35.1-43.9); Red Blood Count 5.67 M/mm3 (4.2-5.4); White Blood Count 9.4 K/mm3 (4.4-11.0)
[2023-09-28 02:28] LABS: Anion Gap 7 (5-15); BUN 13 mg/dL (7-18); BUN/Creat Ratio 13.7 RATIO (10-20); Calcium,Total 9.2 mg/dL (8.5-10.1); Chloride 107 mmol/L (98-107); Creatinine, Serum 0.95 mg/dL (0.55-1.02); EST Glomerular Filtration Rate 66 mL/min (>60); Est Glom Filt Rate - Afr Amer 80 mL/min (>60); Estimated Creatinine Clearance 74.53 ml/min; Glucose 113 mg/dL (74-106); Potassium 3.6 mmol/L (3.5-5.1); Sodium Level 140 mmol/L (136-145); Troponin-I HS (w/2H Reflex) 4 pg/mL (3.0-54.0)
--- NOTE | 2023-09-28 02:33 | EX.ED.DYSGE1 ---
HPI History of Present Illness Chief Complaint: Palpitations Informant: patient Onset/Context/Timing Onset: Days Context: Sudden Onset Timing: Intermittent Quality: Burning, tingling Location: Chest, bilateral arms Worsened by: Nothing Relieved by: Nothing Narrative Narrative: Patient presents with palpitations and chest pain that began again tonight. Patient states it has been constant for the past several hours. Patient states she has been having intermittent episodes over the last few days. Patient states these episodes last anywhere from minutes to hours. Patient describes the sensation as burning and tingling in her chest. Patient states it radiates into both arms. Patient states nothing makes it worse and nothing makes it better. Patient states she does get dizzy when she lays down. Patient describes her dizziness as a spinning sensation. [facility] Medical History Vitamin deficiency Gallstones Carpal tunnel syndrome Home Medications ?Medication ?Instructions ?Recorded ?Last Taken ?Type meclizine 25 mg tablet 25 mg PO Q8H PRN PRN Dizziness #20 08/16/23 Unknown Rx tabs marisabel.stocking,thigh,reg,med #24 ea 08/25/23 Unknown Rx escitalopram oxalate 10 mg tablet 10 mg PO DAILY #30 tabs 08/28/23 Unknown Rx (Lexapro) Allergy/AdvReac Type Severity Reaction Status Date / Time No Known Allergies Allergy Verified 08/28/23 14:29 Family History Mother Diabetes Father Heart disease Myocardial infarction, Onset Age: 46 Surgical History S/P cholecystectomy History of carpal tunnel surgery H/O: Social History adopted: No household members: spouse, family and children housing: house number of children: 5 current occupational status: employed current occupation: [employer] pets and animals: Yes sexually active: Yes Smoking Status: Current every day smoker tobacco type: cigarettes Tobacco: How many years used: 35 Electronic Cigarette Use: not used quit status: considering quitting alcohol intake: never substance use type: does not use caffeine: Yes (4) Type: carbonated beverages what type of physical activity do you participate in: none seatbelt use: always do you feel safe at home: Yes ROS ROS ED Constitutional Constitutional ED: Denies chills or fever(s) Eyes Eyes: Denies blurry vision or change in vision ENT ENT ED: Reports ear pain right; Denies rhinorrhea or sore throat Cardiovascular Cardiovascular: Reports chest pain; Denies palpitations Respiratory/Chest Respiratory/Chest: Reports dyspnea; Denies cough Gastrointestinal Gastrointestinal: Reports nausea; Denies vomiting Genitourinary Genitourinary ED: Denies dysuria or hematuria Musculoskeletal Musculoskeletal: Reports back pain and neck pain Integumentary Denies abscess or rash Neurologic Neurologic: Reports headache(s); Denies weakness Allergic/Immunologic Allergic/Immunologic ED: Denies mouth swelling or urticaria EXAM Physical Exam Const Vital Signs: 09/28/23 00:58 09/28/23 01:01 09/28/23 02:03 Temperature 97.1 F L Temperature Source Temporal Pulse Rate 91 78 Respiratory Rate 13 8 L Respiratory Effort Normal Non-Labored Blood Pressure 140/63 H Blood Pressure Mean 88 Pulse Ox 97 95 Oxygen Delivery Method Room Air 09/28/23 02:08 09/28/23 02:15 09/28/23 02:16 Temperature Temperature Source Pulse Rate 74 76 Respiratory Rate 15 17 Respiratory Effort Blood Pressure 132/65 H 124/79 H Blood Pressure Mean 83 94 Pulse Ox 98 95 Oxygen Delivery Method Room Air 09/28/23 02:30 09/28/23 02:45 Temperature Temperature Source Pulse Rate 74 71 Respiratory Rate 13 16 Respiratory Effort Blood Pressure 130/63 H 138/54 H Blood Pressure Mean 79 76 Pulse Ox 96 96 Oxygen Delivery Method Positive well nourished and well developed General Appearance ED: well developed and NAD HEENT Reports TM's clear and moist mucous membranes Tympanic Membrane ED: Yes TM's clear bilateral Neck supple and no JVD Resp normal respiratory effort and clear to auscultation bilaterally Cardio regular rate and regular rhythm GI non-tender and non-distended Palpation: soft Extremity normal to inspection General Extremety ED: Negative for edema or tenderness General Extremity: Negative for edema Neuro oriented x3, CN's II-XII intact bilaterally and no sensory deficits noted Sensorium / Orientation: alert Motor Exam: strength 5/5 throughout Psych mental status grossly normal MDM MDM MDM Narrative Medical decision making narrative: Differential diagnosis includes cardiac dysrhythmia, cardiac ischemia, pneumonia, pneumothorax, electrolyte abnormality, and anxiety. EKG will be obtained to assess for cardiac dysrhythmia and cardiac ischemia. Chest x-ray will be obtained to assess for pneumonia and pneumothorax. CBC will be obtained to assess for leukocytosis and anemia. Basic metabolic profile will be obtained to assess for electrolyte abnormality and renal function. High-sensitivity troponin will be obtained to assess for cardiac ischemia. 2-hour repeat high-sensitivity troponin will be obtained to assess for ongoing cardiac ischemia. Lab Data Attestation: I reviewed the patient's lab results. Lab results narrative: CBC was reviewed and was essentially within normal limits. Basic metabolic profile was reviewed and was within normal limits. High-sensitivity troponin was reviewed and was normal at 4. 2-hour repeat high-sensitivity troponin was reviewed and was normal at 5. Labs: Laboratory Results - last 24 hr 09/28/23 00:15 WBC 9.4 RBC 5.67 H Hgb 15.2 H Hct 46.8 MCV 82.5 MCH 26.8 L MCHC 32.5 RDW Std Deviation 43.8 RDW Coeff of Leia 14.6 Plt Count 241 MPV 10.2 Immature Gran % (Auto) 0.300 Neut % (Auto) 70.3 H Lymph % (Auto) 25.1 [place] % (Auto) 3.3 Eos % (Auto) 0.5 Baso % (Auto) 0.5 Absolute Neuts (auto) 6.6 Absolute Lymphs (auto) 2.36 Nucleated RBC % 0 Sodium 140 Potassium 3.6 Chloride 107 Carbon Dioxide 26.0 Anion Gap 7 BUN 13 Creatinine 0.95 Estim Creat Clear Calc 74.53 Est GFR (MDRD) Af Amer 80 Est GFR (MDRD) Non-Af 66 BUN/Creatinine Ratio 13.7 Glucose 113 H Calcium 9.2 Troponin I High Sens 4 Radiography Chest X-Ray - ED: 1 View, Read by ED Physician, Read by Radiologist and No Acute Disease Diagnostic Testing: Clinical Impression(s) from Imaging Studies Chest X-Ray 09/28/23 01:30 IMPRESSION: No evidence of active intrathoracic disease. Electronically Signed: Tessa Hamm MD at 2:04 EDT , Portable 1 view chest x-ray was obtained. On my independent interpretation, lung [place] are clear. There is normal cardiac silhouette. Bony thorax is normal. There is no acute process noted. Radiologist also interpreted the x-ray and agrees. EKG Initial EKG: Attestation: I personally reviewed and interpreted this EKG as follows: Interpretation: Sinus Rhythm (82) and No Acute Injury Pattern Comments: EKG was obtained. On my independent interpretation, it showed a normal sinus rhythm with a rate of 82. AL interval, QRS interval, and QTc intervals were all normal. [place] was normal. There are no acute ST or T wave changes. Prior EKG tracings: available for review Prior: Unchanged (08/16/2023) Treatment and Re-Evaluation :: Patient was given aspirin. Patient was advised of her findings. Patient has a HEART score of 2. Patient was advised that this is low risk for acute cardiac event. Patient was instructed to follow-up with her primary care physician in 5 to 7 days. Patient was instructed to return if worse in any way. Patient understood and was agreeable with the plan. All questions were answered. Discharge Plan Triage Chief Complaint: Palpitations ED Provider: Fredo [place] Dx/Rx/DC Orders Clinical Impression: Chest pain, Elevated blood pressure reading Instructions: ED Chest Pain, Uncertain Cause Prescriptions: No Action (DME) marisabel.stocking,thigh,reg,med Misc See Rx Instructions .Route Qty: 24 0RF Rx Instructions: As directed meclizine 25 mg tablet 25 mg PO Q8H PRN PRN (Reason: Dizziness) Qty: 20 0RF escitalopram oxalate [Lexapro] 10 mg tablet 10 mg PO DAILY Qty: 30 0RF Primary Care Provider: Tammy Ahn Referrals: Tammy Ahn MD [Primary Care Provider] - 3-5 Days Print Language: Japanese Disposition Disposition: Home, Self Care
[2023-09-28 04:00] LABS: Reflex Troponin-HS? (from REC) Y
[2023-09-28] MEDS: Aspirin 81 MG TAB.CHEW 324 MG PO (04:14)
[2023-09-28 04:16] LABS: Troponin-I HS 5 pg/mL (3.0-54.0)
== END 2023-09-28 04:33 | disposition home or self-care (01) ==
PROVIDERS: Emergency Provider Emergency Medicine; PCP Internal Medicine; Visit Provider Emergency Medicine
DX: R07.9 Chest pain, unspecified (principal); R00.2 Palpitations; R03.0 Elevated blood-pressure reading, without diagnosis of hypertension; R06.00 Dyspnea, unspecified; R11.0 Nausea; M54.2 Cervicalgia; F17.210 Nicotine dependence, cigarettes, uncomplicated; Z79.899 Other long term (current) drug therapy
CPT/HCPCS: 71045; 80048; 84484; 85025; 93005; 99284; A4216

== ENCOUNTER → 2023-10-01 | Outpatient (CLI) | payer OTHER, SELFPAY ==
--- NOTE | 2023-10-01 12:32 | ECHOD_ITS ---
Reason For Study: DIZZINESS, GIDDINESS Procedure This was a 2D Doppler, Color Flow transthoracic echocardiogram. Exam performed in department. Left Ventricle Normal LV size. The estimated ejection fraction is 65 %. No evidence for diastolic dysfunction. No regional wall motion abnormalities noted. Right Ventricle Normal RV size. Normal systolic function. Atria The left and right atria are normal. No doppler evidence for ASD. Mitral Valve There is no mitral valve stenosis. No mitral valve insufficiency. Tricuspid Valve There is no tricuspid stenosis. Unable to estimate RV systolic pressure due to inadequate jet, pulmonary artery pressure probably normal. Aortic Valve Trisinus/trileaflet aortic valve. There is no aortic stenosis. No aortic valve insufficiency. Pulmonic Valve There is no pulmonic valvular stenosis. No pulmonic valve insufficiency. Great Vessels Normal aortic root. Pericardium/Pleural No pericardial effusion. MMode/2D Measurements & Calculations LVIDd: 4.5 cm IVSd: 0.88 cm Ao root diam: 2.7 cm LVIDs: 3.1 cm LVPWd: 0.87 cm RVDd: 2.4 cm FS: 30.9 % LAV(MOD-bp): 21.5 ml LVAd ap4: 21.6 cm2 LVAd ap2: 22.2 cm2 LAV(MOD-bp) Indexed: 11.1 ml/m2 LVLd ap4: 7.7 cm LVLd ap2: 7.9 cm LAV(MOD-sp2): 23.3 ml EDV(MOD-sp4): 51.2 ml EDV(MOD-sp2): 50.4 ml LAV(MOD-sp4): 17.9 ml EDV(sp4-el): 51.2 ml EDV(sp2-el): 52.6 ml LVAs ap4: 10.8 cm2 LVAs ap2: 10.4 cm2 LVLs ap4: 6.2 cm LVLs ap2: 6.2 cm ESV(MOD-sp4): 16.3 ml ESV(MOD-sp2): 15.1 ml ESV(sp4-el): 16.1 ml ESV(sp2-el): 14.8 ml EF(MOD-sp4): 68.2 % EF(MOD-sp2): 70.0 % EF(sp4-el): 68.6 % SV(MOD-sp4): 34.9 ml SV(MOD-sp2): 35.3 ml SV(sp4-el): 35.2 ml LA dimension(2D): 3.6 cm LA A4 area: 9.2 cm2 RA A4 area: 7.3 cm2 TAPSE: 2.5 cm Time Measurements MV dec time: 0.17 sec Doppler Measurements & Calculations MV E max haja: 64.7 cm/sec Lat Peak E' Haja: 11.5 cm/sec Med Peak E' Haja: 7.9 cm/sec MV A max haja: 65.8 cm/sec E/E' lat: 5.6 E/E' med: 8.1 MV E/A: 0.98 MV V2 max: 88.4 cm/sec MV P1/2t max haja: 84.8 cm/sec Ao V2 max: 133.7 cm/sec MV max P.1 mmHg MV P1/2t: 56.8 msec Ao max P.2 mmHg MV V2 mean: 50.3 cm/sec MV dec slope: 437.2 cm/sec2 Ao V2 mean: 90.0 cm/sec MV mean P.2 mmHg Ao mean P.6 mmHg MV V2 VTI: 21.0 cm MVA(P1/2t): 3.9 cm2 Ao V2 VTI: 27.6 cm AV (velocity ratio): 0.88 LV V1 max: 106.5 cm/sec PA V2 max: 193.2 cm/sec LV V1 max P.5 mmHg PA max PG (full): 12.0 mmHg LV V1 mean P.3 mmHg PA V2 mean: 134.2 cm/sec LV V1 mean: 72.3 cm/sec LV V1 VTI: 24.2 cm ECHO/Echo Complete Interpretation Summary The estimated ejection fraction is 65 %. No evidence for diastolic dysfunction. Ordering Physician: Tammy Ahn Referring Physician: Tammy Ahn Performed By: Jennifer Law RVT, RDCS and Student
--- NOTE | 2023-10-01 12:32 | CDU_ITS ---
Reason For Study: Bruit Rt. Velocities/BP Lt. Velocities/BP Prox CCA 113.3/28.6 cm/sec. Prox CCA 97.4/29.8 cm/sec. Mid CCA 87.6/22.5 cm/sec. Mid CCA 93.7/27.9 cm/sec. Dist CCA 71.6/22.5 cm/sec. Dist CCA 75.3/29.8 cm/sec. Prox ICA 57.0/21.1 cm/sec. Prox ICA 98.6/31.1 cm/sec. Mid ICA 64.5/27.7 cm/sec. Mid ICA 130.2/55.3 cm/sec. Dist ICA 163.9/57.1 cm/sec. Dist ICA 108.3/49.9 cm/sec. Rt. ICA/CCA = 1.87. Lt. ICA/CCA = 1.39. Prox ECA 101.1/16.3 cm/sec. Prox ECA 119.2/24.8 cm/sec. Rt. Vert. 69.1/18.8 cm/sec. Lt. Vert. 52.0/20.1 cm/sec. Right Extracranial There is intimal thickening but no significant atherosclerotic plaque noted in the right common carotid artery. There is intimal thickening but no significant atherosclerotic plaque noted in the right internal carotid artery. The right internal carotid artery is very tortuous. There is intimal thickening but no significant atherosclerotic plaque noted in the right external carotid artery. Antegrade flow is noted in the right vertebral artery. Left Extracranial There is intimal thickening but no significant atherosclerotic plaque noted in the left common carotid artery. There is heterogeneous, irregular atherosclerotic plaque noted in the left internal carotid artery. There is intimal thickening but no significant atherosclerotic plaque noted in the left external carotid artery. Antegrade flow is noted in the left vertebral artery. Procedure Carotid Duplex 23932. This is a Carotid Duplex examination using B-mode, color flow and specral Doppler. Exam performed in department. VL/Carotid Duplex Ultrasound Interpretation Summary Normal right extracranial internal carotid. Moderate (50-69%) stenosis left extracranial internal carotid. Patent and antegrade vertebrals bilaterally. Ordering Physician: Tammy Ahn Referring Physician: Tammy Ahn Performed By: Caroline Dalal RVT and Student
--- NOTE | 2023-10-01 14:04 | STRESSREP_ITS ---
Stress Test Report Date: 10/01/2023 Procedure: Exercise tolerance test Indications: Chest pain Consent: Per the patient Procedure: The patient exercised on a Oliver protocol for 6 minutes and 3 seconds achieving a peak heart rate of 144 bpm (84% predicted maximal heart rate) with a peak blood pressure 148/88 mmHg and a peak MET capacity of approximately 7.1 MET's. The baseline ECG demonstrated normal sinus rhythm. The peak exercise ECG demonstrated no significant ischemic changes. [There were no cardiac dysrhythmias pretest, during exercise, or recovery]. The functional capacity was considered normal for age. The patient had no complaint of chest discomfort during exercise or recovery. The examination was discontinued secondary to leg discomfort. Impression: 1. Stress test is negative for exercise-induced chest pain. 2. Stress test test is negative for exercise-induced EKG changes of ischemia. 3. Functional capacity is normal for age This note was generated with [employer] software. It may contain incorrect words, spelling, and punctuation that were not noted in checking the note before signing.
== END | disposition home or self-care (01) ==
PROVIDERS: PCP Internal Medicine; Referring Provider Internal Medicine; Visit Provider Internal Medicine
DX: R09.89 Other specified symptoms and signs involving the circulatory and respiratory systems (principal); R07.89 Other chest pain; R42 Dizziness and giddiness; R06.02 Shortness of breath
CPT/HCPCS: 93017; 93306; 93880

== ENCOUNTER 2023-11-10 23:05 | Emergency (ER) | payer SELFPAY ==
[2023-11-10 23:08] VITALS: BP 112/86; PULSE 86; RESP 16; TEMP 36.6; O2SAT 98; BMI 35.7
--- NOTE | 2023-11-10 23:23 | EKG12_ITS ---
Test Reason : CP Blood Pressure : / mmHG Vent. Rate : 080 BPM Atrial Rate : 080 BPM P-R Int : 142 ms QRS Dur : 078 ms QT Int : 382 ms P-R-T Axes : 063 050 043 degrees QTc Int : 440 ms Normal sinus rhythm Normal ECG Confirmed by ROMELIA VAUGHN MD ([id number]), loan expeditor BIGG MORILLO ([id number]) on 11/12/2023 1:46:35 PM Referred By: MELINDA Confirmed By:ROMELIA VAUGHN MD
[2023-11-10] MEDS: LORazepam 2 MG/ML Syringe 0.5 MG IV (23:39)
[2023-11-10 23:56] LABS: Absolute Lymphocyte Count 3.03 X10^3/uL (0.83-4.51); Absolute Neutrophil Count 4.7 X10^3/uL (2.0-7.7); Basophil# 0.05 X10^3/uL; Basophil% 0.6 % (0-1); Eosinophil# 0.12 X10^3/uL; Eosinophils% 1.5 % (0-5); Hematocrit 44.6 % (37-47); Hemoglobin 14.3 g/dL (12.0-15.0); Lymphocyte # 3.03 X10^3/ul (0.83-4.51); Lymphocyte % 36.9 % (19-41); Mean Corp Hgb Conc 32.1 g/dL (32-36); Mean Corpuscular Hgb 27.2 pg (27.0-32.0); Mean Corpuscular Volume 84.8 fL (81-99); Mean Platelet Vol. 10.2 fl (6.2-12.0); Monocyte# 0.29 X10^3/uL; Monocyte% 3.5 % (0-10); NRBC Flagged by Analyzer 0 % (0-5); Neutrophil # 4.67 X10^3/uL (2.7-7.7); Neutrophil % 56.9 % (47-70); Platelet Count 237 K/mm3 (150-450); RBC Distribution Width CV 14.6 % (11.6-14.6); RBC Distribution Width SD 44.8 fl (35.1-43.9); Red Blood Count 5.26 M/mm3 (4.2-5.4); White Blood Count 8.2 K/mm3 (4.4-11.0)
[2023-11-11 00:13] LABS: ALB/GLOB Ratio 0.8 RATIO (0.9-2.4); AST(SGOT) 13 U/L (15-37); Alanine Aminotransfer ALT/SGPT 22 U/L (13-56); Albumin, Serum 3.4 g/dL (3.2-5.0); Alkaline Phosphatase 115 U/L (45-117); Anion Gap 5 (5-15); BUN 10 mg/dL (7-18); BUN/Creat Ratio 10.6 RATIO (10-20); Calcium,Total 9.3 mg/dL (8.5-10.1); Chloride 105 mmol/L (98-107); Creatinine, Serum 0.94 mg/dL (0.55-1.02); EST Glomerular Filtration Rate 67 mL/min (>60); Est Glom Filt Rate - Afr Amer 81 mL/min (>60); Estimated Creatinine Clearance 76.96 ml/min; Glucose 90 mg/dL (74-106); Protein, Total 7.4 g/dL (6.4-8.2); Sodium Level 139 mmol/L (136-145)
--- NOTE | 2023-11-11 00:59 | EX.ED.DYSGE1 ---
HPI History of Present Illness Chief Complaint: General Illness Detail of Chief Complaint: Anxiousness, tearful,Sensation going down arms and legs Informant: patient Onset/Context/Timing Onset: Hours Timing: Intermittent (4 weeks) Quality: Sensation pain going down her arms and legs, patient is calling these seizu Location: All extremities Current Severity: Mild Maximum Severity: Moderate Worsened by: Nothing Relieved by: Nothing Associated Symptoms Associated Symptoms: Tearful, chest pain Narrative Narrative: Patient is a woman. She has history of meningioma. She also was recently diagnosed with seizure. She had a abnormal EEG. She was placed on Keppra. She states has been compliant with her medication. Her primary care physician Dr. Kahn. Her neurologist Prior similar symptoms: Yes (Person that is with the patient states that she has been told that this is ) Recent Illness/Hospitalization: Yes [facility] Medical History (Updated 11/11/23 @ 01:[address] Andrea Mcmullen MD) Seizure disorder Meningioma Meningioma Vitamin deficiency Gallstones Carpal tunnel syndrome Home Medications ?Medication ?Instructions ?Recorded ?Last Taken ?Type marisabel.stocking,thigh,reg,med #24 ea 08/25/23 Unknown Rx levetiracetam 500 mg tablet 500 mg PO BID 10/23/23 Unknown History (Keppra) meclizine 25 mg tablet 25 mg PO Q8H PRN PRN Dizziness 10/23/23 Unknown History clorazepate dipotassium 3.75 mg 3.75 mg PO TID PRN anxiety 5 days 11/11/23 Unknown Rx tablet #14 tabs Allergy/AdvReac Type Severity Reaction Status Date / Time No Known Allergies Allergy Verified 11/10/23 23:11 Family History Mother Diabetes Father Heart disease Myocardial infarction, Onset Age: 46 Surgical History S/P cholecystectomy History of carpal tunnel surgery H/O: Social History adopted: No household members: spouse, family and children housing: house number of children: 5 current occupational status: employed current occupation: [employer] pets and animals: Yes sexually active: Yes Smoking Status: Current every day smoker tobacco type: cigarettes Tobacco: How many years used: 35 Electronic Cigarette Use: not used quit status: considering quitting alcohol intake: never substance use type: does not use caffeine: Yes (4) Type: carbonated beverages what type of physical activity do you participate in: none seatbelt use: always do you feel safe at home: Yes ROS ROS ED Constitutional Constitutional ED: Denies chills, fever(s), subjective, sweats or weight loss Eyes Eyes: Denies blurry vision, change in vision or diplopia ENT ENT ED: Denies ear pain, rhinorrhea or sore throat Cardiovascular Cardiovascular: Denies chest pain, palpitations or racing heartbeat Respiratory/Chest Respiratory/Chest: Denies cough, dyspnea or dyspnea on exertion Gastrointestinal Gastrointestinal: Denies abdominal pain, constipation, diarrhea, melena, nausea or vomiting Genitourinary Genitourinary ED: Denies dysuria, hematuria or urinary frequency Musculoskeletal Musculoskeletal: Denies arthralgias or myalgias Integumentary Denies rash Neurologic Neurologic: Denies headache(s), paresthesias or weakness Psychiatric Psychiatric: Reports anxiety, depression and other Details: Patient stopped her Lexapro several weeks ago. ; Denies suicidal ideation or suicidal thoughts Endocrine Endocrinology: Denies cold intolerance or heat intolerance Hematologic/Lymphatic Hematologic/Lymphatic: Reports systems reviewed and no addt'l complaints, except as documented EXAM Physical Exam Const Vital Signs: 11/10/23 23:08 11/10/23 23:40 11/11/23 01:07 Temperature 97.8 F Temperature Source Temporal Pulse Rate 86 69 Respiratory Rate 16 12 Respiratory Effort Normal Respiratory Pattern Normal Blood Pressure 112/86 H 104/76 Blood Pressure Mean 94 85 Pulse Ox 98 97 Oxygen Delivery Method Room Air Room Air Positive well nourished and well developed Constitutional Narrative: Patient is tearful. General Appearance ED: well developed and pallor; Negative for cyanotic or diaphoretic HEENT Reports TM's clear and moist mucous membranes HEENT Narrative: Head is atraumatic normocephalic. Ears normal. Nares patent. Posterior pharynx is normal. Tympanic Membrane ED: Yes TM's clear bilateral Eyes PERRL and EOMs intact bilaterally Eyes Narrative: There is no nystagmus. General Eye ED: Negative for pale conjunctiva or scleral icterus Neck no lymphadenopathy, supple and no JVD Chest Wall inspection of chest normal and palpation of chest normal Resp normal respiratory effort and clear to auscultation bilaterally Cardio regular rate, regular rhythm, S1 normal heart sound, S2 normal heart sound and no murmurs GI normal to inspection, nondistended, normoactive bowel sounds, non-tender, non-distended and no masses; Negative for hepatosplenomegaly Back/Spine no CVA tenderness Cervical Spine: Negative for cervical spine tenderness Thoracic Spine / Upper Back: Negative for thoracic spinal tenderness Lumbar Spine / Lower Back: Negative for lumbar spinal tenderness Extremity normal to inspection Extremity Narrative: There is no neurovasc compromise upper or lower extremity. General Extremety ED: Negative for edema or tenderness General Extremity: Negative for edema Neuro oriented x3, CN's II-XII intact bilaterally and no sensory deficits noted Neuro Narrative: There is no dysmetria. There is no clonus or Babinski sign noted right or left. Bicep, brachialis, tricep, patella and ankle reflex are 1-2+ and symmetric. Sensorium / Orientation: alert Motor Exam: strength 5/5 throughout Psych Mood & Affect: depressed, anxious and tearful Skin no rashes or lesions noted, no wounds and skin turgor normal General Skin Exam: pallor; Negative for elasticity normal or jaundice MDM MDM MDM Narrative Medical decision making narrative: Will obtain blood work to look for metabolic or infectious cause of her symptoms. This may also represent affective disorder. Especially since she discontinued her Lexapro. Feels the medication is not working. A Keppra level was obtained. This is a send out. History & Record Review Discussion w/independent historian: Patient Lab Data Attestation: I reviewed the patient's lab results. Lab results narrative: CBC is normal. Comprehensive metabolic panel is normal. Labs: Laboratory Results - last 24 hr 11/10/23 23:43 WBC 8.2 RBC 5.26 Hgb 14.3 Hct 44.6 MCV 84.8 MCH 27.2 MCHC 32.1 RDW Std Deviation 44.8 H RDW Coeff of Leia 14.6 Plt Count 237 MPV 10.2 Immature Gran % (Auto) 0.600 Neut % (Auto) 56.9 Lymph % (Auto) 36.9 [place] % (Auto) 3.5 Eos % (Auto) 1.5 Baso % (Auto) 0.6 Absolute Neuts (auto) 4.7 Absolute Lymphs (auto) 3.03 Nucleated RBC % 0 Sodium 139 Potassium 4.0 Chloride 105 Carbon Dioxide 29.0 Anion Gap 5 BUN 10 Creatinine 0.94 Estim Creat Clear Calc 76.96 Est GFR (MDRD) Af Amer 81 Est GFR (MDRD) Non-Af 67 BUN/Creatinine Ratio 10.6 Glucose 90 Calcium 9.3 Total Bilirubin 0.30 AST 13 L ALT 22 Alkaline Phosphatase 115 Total Protein 7.4 Albumin 3.4 Globulin 4.0 Albumin/Globulin Ratio 0.8 L Treatment and Re-Evaluation :: Patient was told her tests were normal. She feels much better after Ativan. Will discharge with prescription for antianxiety. She has been instructed to follow-up with her doctor and neurologist and needs to speak to them specifically regarding her concerns and that she believes the medications not working. In my opinion this is due to affective disorder. Discharge Plan Triage Chief Complaint: General Illness ED Provider: Andrea Mcmullen Dx/Rx/DC Orders Clinical Impression: Anxiety reaction, Electrical shock sensation, Abnormal sensation of lower extremity, Abnormal sensation of upper extremity, History of seizure Instructions: ED Anxiety Reaction Prescriptions: New clorazepate dipotassium 3.75 mg tablet 3.75 mg PO TID PRN (Reason: anxiety) 5 Days Qty: 14 0RF No Action (DME) marisabel.stocking,thigh,reg,med Misc See Rx Instructions .Route Qty: 24 0RF Rx Instructions: As directed levetiracetam [Keppra] 500 mg tablet 500 mg PO BID meclizine 25 mg tablet 25 mg PO Q8H PRN PRN (Reason: Dizziness) Patient Comments: pt states she ran out of this would like refill Primary Care Provider: Tammy Ahn Referrals: Tammy Ahn MD [Primary Care Provider] - Activity Restrictions/Additional Instructions: You need to contact your primary care doctor and neurologist regarding your abnormal sensation/electrical shocks to discuss appropriate treatment. Print Language: Luxembourgish Disposition Disposition: Home, Self Care
[2023-11-11 01:07] VITALS: BP 104/76; PULSE 69; RESP 12; O2SAT 97
[2023-11-11 01:36] VITALS: BP 104/64; PULSE 66; RESP 17; O2SAT 96
[2023-11-13 18:08] LABS: KEPPRA (LEVETIRACETAM) 13.6 ug/mL (10.0-40.0)
== END 2023-11-11 01:37 | disposition home or self-care (01) ==
PROVIDERS: Emergency Provider Emergency Medicine; PCP Internal Medicine; Visit Provider Emergency Medicine
DX: F41.1 Generalized anxiety disorder (principal); G40.909 Epilepsy, unspecified, not intractable, without status epilepticus; M79.631 Pain in right forearm; M79.632 Pain in left forearm; F17.210 Nicotine dependence, cigarettes, uncomplicated; F32.A Depression, unspecified; R20.9 Unspecified disturbances of skin sensation; R07.9 Chest pain, unspecified; Z79.899 Other long term (current) drug therapy; M79.605 Pain in left leg; M79.604 Pain in right leg
CPT/HCPCS: 80053; 80177; 85025; 93005; 96374; 99285; A4216

== ENCOUNTER 2023-11-26 03:05 | Emergency (ER) | payer SELFPAY ==
[2023-11-26 03:06] VITALS: BP 121/66; PULSE 88; RESP 20; TEMP 36.5; O2SAT 98; BMI 38.7
--- NOTE | 2023-11-26 03:23 | EDS_ITS ---
HPI HPI - GI History of Present Illness Chief Complaint: Abd Pain Informant: patient Abdominal Pain/Flank Pain Onset: Days Context: Gradual Onset Timing: Continuous Quality: Burning Location: Epigastric Current Severity: Moderate Maximum Severity: Moderate Worsened by: Food Relieved by: Nothing Nausea/Vomiting/Emesis GI Symptom: Positive for Nausea Onset: Days Severity: Mild Diarrhea/Melena/Hematochezia GI Symptom: Negative for Diarrhea, Melena or Hematochezia Associated Symptoms Associated Symptoms: Negative for Dysuria, Frequency, Hematuria or Urgency Narrative Narrative: 48-year-old female history of seizure disorder, meningioma and prior cholecystectomy and . States for the last week she has had epigastric abdominal pain. Worse with food. Not positional. Mild nausea no vomiting or diarrhea. No melena. No hematemesis. No significant weight change. She took omeprazole without any significant relief also Pepto-Bismol without significant relief. It is worse when she eats. Nothing particular makes it better. No chest pain. No shortness of breath. Within the last few months she had a negative stress test and negative cardiac workup according to the patient. Prior similar symptoms: Yes Recent Illness/Hospitalization: No PFSH PFSH Medical History Seizure disorder Meningioma Meningioma Vitamin deficiency Gallstones Carpal tunnel syndrome Home Medications ?Medication ?Instructions ?Recorded ?Last Taken ?Type marisabel.stocking,thigh,reg,med #24 ea 08/25/23 Unknown Rx levetiracetam 500 mg tablet 500 mg PO BID 10/23/23 Unknown History (Keppra) meclizine 25 mg tablet 25 mg PO Q8H PRN PRN Dizziness 10/23/23 Unknown History clorazepate dipotassium 3.75 mg 3.75 mg PO TID PRN anxiety 5 days 11/11/23 Unknown Rx tablet #14 tabs pantoprazole 40 mg tablet,delayed 40 mg PO DAILY #30 tabs 11/26/23 Unknown Rx release (Protonix) Allergy/AdvReac Type Severity Reaction Status Date / Time No Known Allergies Allergy Verified 11/10/23 23:11 Family History Mother Diabetes Father Heart disease Myocardial infarction, Onset Age: 46 Surgical History S/P cholecystectomy History of carpal tunnel surgery H/O: Social History adopted: No household members: spouse, family and children housing: house number of children: 5 current occupational status: employed current occupation: [employer] pets and animals: Yes sexually active: Yes Smoking Status: Current every day smoker tobacco type: cigarettes Tobacco: How many years used: 35 Electronic Cigarette Use: not used quit status: considering quitting alcohol intake: never substance use type: does not use caffeine: Yes (4) Type: carbonated beverages what type of physical activity do you participate in: none seatbelt use: always do you feel safe at home: Yes ROS ROS ED ROS Narrative Epigastric abdominal burning. Constitutional Constitutional ED: Denies chills or fever(s) ENT ENT ED: Denies ear pain Cardiovascular Cardiovascular: Denies chest pain Respiratory/Chest Respiratory/Chest: Denies cough Gastrointestinal Gastrointestinal: Reports abdominal pain and nausea; Denies constipation, diarrhea, melena or vomiting Genitourinary Genitourinary ED: Denies dysuria or hematuria Musculoskeletal Musculoskeletal: Denies arthralgias or back pain Integumentary Denies abscess Neurologic Neurologic: Denies headache(s) Psychiatric Psychiatric: Denies anxiety Endocrine Endocrinology: Denies polydipsia Hematologic/Lymphatic Hematologic/Lymphatic: Denies easy bleeding Allergic/Immunologic Allergic/Immunologic ED: Denies mouth swelling EXAM Physical Exam Narrative Exam Narrative: Well-appearing 48-year-old female. Vital signs stable afebrile. H EENT exam unremarkable. Mytrex members. Neck nontender no lymphadenopathy. Lungs clear to auscultation bilaterally. Heart regular rhythm rate about 85 no murmur. Chest wall ribs nontender. Abdomen soft nondistended normal bowel sounds without peritoneal signs. No significant abdominal tenderness. No Georges sign. No McBurney's point tenderness. No hernia or mass. No obstruction or distention. No pulsatile mass. Moving all 4 extremities. Nontender without e tip. Awake and alert. No focal motor deficits. Const Vital Signs: 11/26/23 03:06 Temperature 97.7 F L Temperature Source Oral Pulse Rate 88 Respiratory Rate 20 H Blood Pressure 121/66 H Blood Pressure Mean 84 Pulse Ox 98 Oxygen Delivery Method Room Air Positive well nourished and well developed; Negative for cachectic, contractures or unkempt General Appearance ED: well developed, NAD and pallor; Negative for unkempt, cachectic or contractures Nutritional Appearance: Negative for cachectic HEENT Reports moist mucous membranes normocephalic and atraumatic; Negative for trauma or tenderness Eyes PERRL and EOMs intact bilaterally General Eye ED: Negative for pale conjunctiva or scleral icterus Neck no lymphadenopathy, supple and no JVD General: Negative for tenderness Carotids: Negative for other Lymph Lymphatic: Negative for other Resp normal respiratory effort and clear to auscultation bilaterally Effort and Inspection: Negative for respiratory distress Auscultation: Negative for rales, rhonchi, wheezes, diminished lung sounds or other Cardio regular rate, regular rhythm, S1 normal heart sound, S2 normal heart sound and no murmurs Rate: Negative for bradycardia or tachycardic Rhythm: Negative for abnormal rhythm or other GI non-tender, non-distended and no masses Inspection: Negative for abdominal distention Auscultation: normoactive bowel sounds Palpation: soft; Negative for tender, guarding, rigid, hepatomegaly, splenomegaly, hernia, mass, pulsatile mass or rebound tenderness present Back/Spine no CVA tenderness General Back: Negative for CVA tenderness Cervical Spine: Negative for cervical spine tenderness Thoracic Spine / Upper Back: Negative for thoracic spinal tenderness Lumbar Spine / Lower Back: Negative for lumbar spinal tenderness Extremity full ROM General Extremety ED: Negative for edema or tenderness General Extremity: Negative for edema Neuro CN's II-XII intact bilaterally and moves all extremities Sensorium / Orientation: alert, oriented to person and oriented to place; Negative for orientation impaired or confused Motor Exam: strength 5/5 throughout Psych mental status grossly normal and thought process normal Appearance: Negative for unkempt Attitude: No agitated Mood & Affect: Negative for depressed or tearful Skin no wounds General Skin Exam: pallor; Negative for jaundice Lesions: no lesions Rashes: no rashes Trauma: Negative for abrasion Nails: Negative for discolored MDM MDM MDM Narrative Medical decision making narrative: 48-year-old female with epigastric abdominal pain for a week. Sounds like gastritis or reflux. Do not think this is pancreatitis because she is not vomiting. She is already had her gallbladder removed. Abdominal exam is benign. She will be given a GI cocktail and Protonix. Labs to be obtained I do not think she needs imaging because she has a benign abdominal exam. Repeat exam patient is doing well at 4:26 AM doing well. Did have some improvement with a GI cocktail and Protonix. She is comfortable being discharged to home. Outpatient follow-up. Possible GI or general surgery follow-up if not improving with medications for upper endoscopy. History & Record Review Discussion w/independent historian: Patient and Family Additional record(s) reviewed:: Prior inpatient record, Prior outpatient record, Prior ED visit and Prior labs Lab Data Attestation: I reviewed the patient's lab results. Lab results narrative: CBC normal. White count 8.3. H&H 14.7 and 45. Platelets 238. Chemistries show gap 6. Normal BUN and creatinine. Glucose 130. Liver enzymes normal. Lipase normal at 48. Labs: Laboratory Results - last 24 hr 11/26/23 03:30 WBC 8.3 RBC 5.37 Hgb 14.7 Hct 45.0 MCV 83.8 MCH 27.4 MCHC 32.7 RDW Std Deviation 43.9 RDW Coeff of Leia 14.6 Plt Count 238 MPV 10.3 Immature Gran % (Auto) 0.500 Neut % (Auto) 49.4 Lymph % (Auto) 43.4 H Otero % (Auto) 4.4 Eos % (Auto) 1.6 Baso % (Auto) 0.7 Absolute Neuts (auto) 4.1 Absolute Lymphs (auto) 3.59 Nucleated RBC % 0 Sodium 138 Potassium 3.6 Chloride 107 Carbon Dioxide 25.0 Anion Gap 6 BUN 12 Creatinine 0.94 Estim Creat Clear Calc 80.39 Est GFR (MDRD) Af Amer 81 Est GFR (MDRD) Non-Af 67 BUN/Creatinine Ratio 12.7 Glucose 130 H Calcium 9.2 Total Bilirubin 0.20 AST 14 L ALT 24 Alkaline Phosphatase 102 Total Protein 7.5 Albumin 3.3 Globulin 4.2 Albumin/Globulin Ratio 0.8 L Lipase 48 Discharge Plan Triage Chief Complaint: Abd Pain ED Provider: Nelson Ba Dx/Rx/DC Orders Clinical Impression: Abdominal pain, Gastroesophageal reflux, Gastritis Instructions: Abdominal Pain, ED Gastritis (Adult) Prescriptions: New pantoprazole [Protonix] 40 mg tablet,delayed release (DR/EC) 40 mg PO DAILY Qty: 30 0RF No Action (DME) marisabel.stocking,thigh,reg,med Misc See Rx Instructions .Route Qty: 24 0RF Rx Instructions: As directed levetiracetam [Keppra] 500 mg tablet 500 mg PO BID meclizine 25 mg tablet 25 mg PO Q8H PRN PRN (Reason: Dizziness) Patient Comments: pt states she ran out of this would like refill clorazepate dipotassium 3.75 mg tablet 3.75 mg PO TID PRN (Reason: anxiety) 5 Days Qty: 14 0RF Primary Care Provider: Tammy Ahn Referrals: Tammy Ahn MD [Primary Care Provider] - 3-5 Days if not improving Activity Restrictions/Additional Instructions: [place] diet increase slowly as tolerated. Protonix 40 mg a day which would improve the symptoms if you have either gastr itis which is inflammation of your stomach, a mild ulcer or reflux. Return if black or bloody stools or throwing up blood. Otherwise follow-up if not improving for further evaluation. If this is not getting better you may need upper endoscopy to look down in your stomach. Print Language: Eritrean Disposition Disposition: Home, Self Care
[2023-11-26 03:40] LABS: Absolute Lymphocyte Count 3.59 X10^3/uL (0.83-4.51); Absolute Neutrophil Count 4.1 X10^3/uL (2.0-7.7); Basophil# 0.06 X10^3/uL; Basophil% 0.7 % (0-1); Eosinophil# 0.13 X10^3/uL; Eosinophils% 1.6 % (0-5); Hemoglobin 14.7 g/dL (12.0-15.0); Lymphocyte # 3.59 X10^3/ul (0.83-4.51); Lymphocyte % 43.4 % (19-41); Mean Corp Hgb Conc 32.7 g/dL (32-36); Mean Corpuscular Hgb 27.4 pg (27.0-32.0); Mean Corpuscular Volume 83.8 fL (81-99); Mean Platelet Vol. 10.3 fl (6.2-12.0); Monocyte# 0.36 X10^3/uL; Monocyte% 4.4 % (0-10); NRBC Flagged by Analyzer 0 % (0-5); Neutrophil # 4.09 X10^3/uL (2.7-7.7); Neutrophil % 49.4 % (47-70); Platelet Count 238 K/mm3 (150-450); RBC Distribution Width CV 14.6 % (11.6-14.6); RBC Distribution Width SD 43.9 fl (35.1-43.9); Red Blood Count 5.37 M/mm3 (4.2-5.4); White Blood Count 8.3 K/mm3 (4.4-11.0)
[2023-11-26] MEDS: Mag /Aluminum/Simeth WCH UDC 30 ML ORAL.SUSP PO (03:59)
[2023-11-26] MEDS: Pantoprazole Sodium 40 MG Tablet PO (03:59)
[2023-11-26] MEDS: Lidocaine 2% Viscous15 ML UDC 15 ML PO (04:02)
[2023-11-26 04:07] LABS: ALB/GLOB Ratio 0.8 RATIO (0.9-2.4); AST(SGOT) 14 U/L (15-37); Alanine Aminotransfer ALT/SGPT 24 U/L (13-56); Albumin, Serum 3.3 g/dL (3.2-5.0); Alkaline Phosphatase 102 U/L (45-117); Anion Gap 6 (5-15); BUN 12 mg/dL (7-18); BUN/Creat Ratio 12.7 RATIO (10-20); Calcium,Total 9.2 mg/dL (8.5-10.1); Chloride 107 mmol/L (98-107); Creatinine, Serum 0.94 mg/dL (0.55-1.02); EST Glomerular Filtration Rate 67 mL/min (>60); Est Glom Filt Rate - Afr Amer 81 mL/min (>60); Estimated Creatinine Clearance 80.39 ml/min; Globulin 4.2 g/dL (2.2-4.2); Glucose 130 mg/dL (74-106); Lipase 48 U/L (13-75); Potassium 3.6 mmol/L (3.5-5.1); Protein, Total 7.5 g/dL (6.4-8.2); Sodium Level 138 mmol/L (136-145)
[2023-11-26 04:35] VITALS: BP 127/64; PULSE 73; RESP 13; TEMP 36.6; O2SAT 97
== END 2023-11-26 04:37 | disposition home or self-care (01) ==
PROVIDERS: Emergency Provider Emergency Medicine; PCP Internal Medicine; Visit Provider Emergency Medicine
DX: R10.13 Epigastric pain (principal); G40.909 Epilepsy, unspecified, not intractable, without status epilepticus; K29.70 Gastritis, unspecified, without bleeding; K21.9 Gastro-esophageal reflux disease without esophagitis; F17.210 Nicotine dependence, cigarettes, uncomplicated; Z90.49 Acquired absence of other specified parts of digestive tract
CPT/HCPCS: 80053; 83690; 85025; 99283; A4216

== ENCOUNTER 2023-12-04 01:06 | Emergency (ER) | payer MEDICAID, SELFPAY ==
[2023-12-04 01:07] VITALS: BP 163/65; PULSE 88; RESP 18; TEMP 36.7; O2SAT 99; BMI 35.9
[2023-12-04 01:09] VITALS: BP 163/65; PULSE 81; RESP 17; O2SAT 99
--- NOTE | 2023-12-04 01:24 | RAD_ITS ---
INDICATION: chest pain EXAMINATION/TECHNIQUE: X-RAY - XR Chest 2 Views COMPARISON: No relevant prior comparison study available FINDINGS: LINES/DEVICES: None. LUNGS: No consolidation, edema or effusion. No pneumothorax. MEDIASTINUM AND CARDIOVASCULAR STRUCTURES: Cardiac silhouette not enlarged. Central airways and mediastinal contour are unremarkable. BONES AND SOFT TISSUES: Unremarkable. RAD/Chest PA and Lateral IMPRESSION: No radiographic evidence of acute cardiopulmonary disease. Electronically Signed: Louie Vanessa MD at 2:17 EDT ,
--- NOTE | 2023-12-04 01:24 | CT_ITS ---
INDICATION: diffuse tingling, hx of meningioma EXAMINATION: CT BRAIN - CT Head or Brain W/O Contrast Injection TECHNIQUE: Multiple axial images were obtained of the head without intravenous contrast. The protocol utilizes one or more of the following dose reduction techniques: automated exposure control, adjustment of mA and/or kV according to patient size,and/or use of iterative reconstruction technique. IV Contrast dosage and agent: None. RADIATION DOSAGE (If Supplied By Facility): CTDIvol = ( 44.99 ) mGy, DLP = ( 846.73 ) mGycm COMPARISON: No relevant prior comparison study available FINDINGS: BRAIN PARENCHYMA: No intra- or extra-axial hemorrhage. No evidence of acute infarct. No intracranial mass or mass effect. There is preservation of the castle/white matter interface. Posterior fossa structures are unremarkable. CSF SPACES: Appropriate for age. No hydrocephalus. Basal cisterns are patent. CALVARIUM, SKULL BASE, PARANASAL SINUSES AND MASTOID AIR CELLS: Clear. No discrete lytic or blastic abnormalities. ORBITS: Both globes, extraocular muscles, optic nerves and retrobulbar fat appear unremarkable. ASPECTS Score for Acute Strokes: 10 CT/Brain/Head without Contrast IMPRESSION: Negative Brain CT without contrast. Electronically Signed: Louie Vanessa MD at 2:16 EDT ,
--- NOTE | 2023-12-04 01:24 | EKG12_ITS ---
Test Reason : Blood Pressure : / mmHG Vent. Rate : 061 BPM Atrial Rate : 061 BPM P-R Int : 152 ms QRS Dur : 084 ms QT Int : 416 ms P-R-T Axes : 055 040 045 degrees QTc Int : 418 ms Normal sinus rhythm with sinus arrhythmia Normal ECG Confirmed by JOHANA WONG, ROMELIA ([id number]), features editor KELLY VINCENT ([id number]) on 12/07/2023 7:29:00 AM Referred By: Confirmed By:ROMELIA VAUGHN MD
[2023-12-04] MEDS: 0.9% Normal Saline (1000mL) 1,000 ML 999 ML IV ×2 (01:30→03:27)
[2023-12-04 01:32] LABS: Absolute Lymphocyte Count 5.18 X10^3/uL (0.83-4.51); Basophil# 0.06 X10^3/uL; Basophil% 0.6 % (0-1); Eosinophils% 0.9 % (0-5); Hematocrit 44.9 % (37-47); Hemoglobin 14.5 g/dL (12.0-15.0); Lymphocyte # 5.18 X10^3/ul (0.83-4.51); Lymphocyte % 48.5 % (19-41); Mean Corp Hgb Conc 32.3 g/dL (32-36); Mean Corpuscular Hgb 27.3 pg (27.0-32.0); Mean Corpuscular Volume 84.4 fL (81-99); Mean Platelet Vol. 10.3 fl (6.2-12.0); Monocyte# 0.31 X10^3/uL; Monocyte% 2.9 % (0-10); NRBC Flagged by Analyzer 0 % (0-5); Neutrophil # 4.98 X10^3/uL (2.7-7.7); Neutrophil % 46.5 % (47-70); POSITIVE DIFFERENTIAL YES; Platelet Count 253 K/mm3 (150-450); RBC Distribution Width CV 14.7 % (11.6-14.6); RBC Distribution Width SD 44.5 fl (35.1-43.9); Red Blood Count 5.32 M/mm3 (4.2-5.4); White Blood Count 10.7 K/mm3 (4.4-11.0)
[2023-12-04 01:57] LABS: Anion Gap 7 (5-15); BUN 10 mg/dL (7-18); BUN/Creat Ratio 10.2 RATIO (10-20); Calcium,Total 8.7 mg/dL (8.5-10.1); Chloride 109 mmol/L (98-107); Creatinine, Serum 0.98 mg/dL (0.55-1.02); EST Glomerular Filtration Rate 64 mL/min (>60); Est Glom Filt Rate - Afr Amer 77 mL/min (>60); Estimated Creatinine Clearance 73.94 ml/min; Glucose 99 mg/dL (74-106); Magnesium 2.1 mg/dL (1.6-2.6); Potassium 3.1 mmol/L (3.5-5.1); Sodium Level 142 mmol/L (136-145); Troponin-I HS 6 pg/mL (3.0-54.0)
[2023-12-04 02:09] VITALS: BP 111/65; PULSE 68; RESP 14; O2SAT 98
[2023-12-04 02:33] LABS: Free T3 2.5 pg/mL (2.18-3.98); T4 Free Direct 0.83 ng/dL (0.76-1.46)
[2023-12-04] MEDS: Ketorolac 15 MG/ML Vial IV (02:36)
--- NOTE | 2023-12-04 02:40 | EDS_ITS ---
HPI History of Present Illness Chief Complaint: Numb/Ting Narrative Narrative: Patient is a 48-year-old female with past medical history of meningioma, seizure disorder who presents to the emergency department with chief complaint of head pressure and numbness/tingling in her left arm since 3:00 this afternoon as well as her left leg. She states that her numbness and tingling in the left side of her body is constant and notes that the rest of her body will have numbness and tingling on as well with feeling of increased pressure in her head however this comes and goes. 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 She denies any recent sick contacts. [facility] Medical History Seizure disorder Meningioma Meningioma Vitamin deficiency Gallstones Carpal tunnel syndrome Home Medications ?Medication ?Instructions ?Recorded ?Last Taken ?Type marisabel.stocking,thigh,reg,med #24 ea 08/25/23 Unknown Rx pantoprazole 40 mg tablet,delayed 40 mg PO DAILY #30 tabs 11/26/23 Unknown Rx release (Protonix) hydroxyzine HCl 25 mg tablet 25 mg PO BID PRN PRN anxiety 12/04/23 12/03/23 15:30 History Allergy/AdvReac Type Severity Reaction Status Date / Time No Known Allergies Allergy Verified 12/04/23 01:07 Family History Mother Diabetes Father Heart disease Myocardial infarction, Onset Age: 46 Surgical History S/P cholecystectomy History of carpal tunnel surgery H/O: Social History adopted: No household members: spouse, family and children housing: house number of children: 5 current occupational status: employed current occupation: [employer] pets and animals: Yes sexually active: Yes Smoking Status: Current every day smoker tobacco type: cigarettes Tobacco: How many years used: 35 Electronic Cigarette Use: not used quit status: considering quitting alcohol intake: never substance use type: does not use caffeine: Yes (4) Type: carbonated beverages what type of physical activity do you participate in: none seatbelt use: always do you feel safe at home: Yes ROS ROS ED ROS Narrative Constitutional: Complains of pressure in her head as noted above denies any dizziness, lightheadedness Eyes: Patient states that she has blurry vision but this has been going on for a significant mount time this is not changed denies any new changes in vision Cardiovascular: Denies chest pain or palpitations Respiratory: Denies coughing wheezing shortness of breath Abdomen: Denies abdominal pain nausea vomit diarrhea : Denies any urinary symptoms Neurological: Complains of whole body numbness and tingling as noted above denies weakness Musculoskeletal: Denies back pain Skin: Denies rashes or lesions EXAM Physical Exam Narrative Exam Narrative: General: Patient lying in bed rest comfortably did not appear to be in acute distress Head: Atraumatic, normocephalic Eyes: PERRL bilaterally, EOMI bilateral, no conjunctival injection noted Neck: Soft, supple, trach midline Cardiovascular: Regular rate and rhythm no murmurs gallops rubs noted Respiratory: Clear to auscultation bilaterally no rales rhonchi or wheeze noted Abdomen: Soft, nondistended, no tenderness palpation can bowel sounds present x 4 Extremities: +5/5 strength noted in the bilateral upper and lower extremities, no pedal edema on exam, radial pulses +2/4 in the bilateral upper extremities Neurological: Patient is following commands knew that she was at [facility] year is 2023. Sensation grossly intact in the bilateral upper and lower extremities, NIH of 0 GCS 15 Skin: Warm, dry, intact Const Vital Signs: 12/04/23 01:07 12/04/23 01:09 12/04/23 01:27 Temperature 98.1 F Temperature Source Oral Pulse Rate 88 81 Respiratory Rate 18 17 Blood Pressure 163/65 H 163/65 H Blood Pressure Mean 97 97 Pulse Ox 99 99 Oxygen Delivery Method Room Air Room Air Room Air 12/04/23 02:09 12/04/23 03:00 12/04/23 04:00 Temperature Temperature Source Pulse Rate 68 66 67 Respiratory Rate 14 18 15 Blood Pressure 111/65 131/67 H 132/74 H Blood Pressure Mean 80 88 93 Pulse Ox 98 98 98 Oxygen Delivery Method Room Air Room Air Room Air MDM MDM MDM Narrative Medical decision making narrative: Patient is a 48-year-old female who presented to the emerged part the chief complaint of head pressure and whole body numbness and tingling associated with this. Patient will have a workup performed here on the differential diagnose includes but not limited to intracranial hemorrhage, expanding meningioma, tension headache, migraine headache. Once workup is obtained reviewed she will be reevaluated. Patient's CBC reviewed and showed no evidence leukocytosis white blood count normal 10.7, hemoglobin stable 14.5, platelet count normal at 253. Patient sodi um normal 142, potassium was low indicating hypokalemia 3.1 and she was given 40 mill equivalents of oral potassium supplementation here, creatinine normal at 0.98. Patient's magnesium normal at 2.1, troponin normal at 6 with a EKG obtained and reviewed by myself which showed sinus rhythm with a rate of 61 bpm. Patient's TSH was noted to be 11.4, free T4 and free T3 were noted be normal at 0.[address] head and brain without contrast was reviewed and showed no acute findings. Patient's chest x-ray was reviewed and showed no acute cardiopulmonary processes. Did discuss results with the patient and she states that she feels very anxious and overwhelmed and would like some medicine to help her calm down should be given Ativan. At this point time once again the patient states that this been going on for significant amount of time since July and notes that she has been following with neurology in outpatient setting for this. She was advised to call her neurolo gist in the morning to follow-up with them and to see if they have any other thoughts or suggestions. Patient was otherwise to return with worsening symptoms or other concerns. She is encouraged to follow-up with her primary care physician outpatient setting as well. All question concerns answered she would like to go home she was discharged home in stable condition. Lab Data Labs: Laboratory Results - last 24 hr 12/04/23 01:15 WBC 10.7 RBC 5.32 Hgb 14.5 Hct 44.9 MCV 84.4 MCH 27.3 MCHC 32.3 RDW Std Deviation 44.5 H RDW Coeff of Leia 14.7 H Plt Count 253 MPV 10.3 Immature Gran % (Auto) 0.600 Neut % (Auto) 46.5 L Lymph % (Auto) 48.5 H [place] % (Auto) 2.9 Eos % (Auto) 0.9 Baso % (Auto) 0.6 Absolute Neuts (auto) 5.0 Absolute Lymphs (auto) 5.18 H Nucleated RBC % 0 Sodium 142 Potassium 3.1 L Chloride 109 H Carbon Dioxide 26.0 Anion Gap 7 BUN 10 Creatinine 0.98 Estim Creat Clear Calc 73.94 Est GFR (MDRD) Af Amer 77 Est GFR (MDRD) Non-Af 64 BUN/Creatinine Ratio 10.2 Glucose 99 Calcium 8.7 Magnesium 2.1 Troponin I High Sens 6 TSH 11.400 H Free T4 0.83 Free T3 pg/dL 2.5 Radiography Diagnostic Testing: Clinical Impression(s) from Imaging Studies Brain CT 12/04/23 01:24 IMPRESSION: Negative Brain CT without contrast. Electronically Signed: Louie Vanessa MD at 2:16 EDT Reading Location ID and State: [facility] / [place] Tel , Service support , Chest X-Ray 12/04/23 01:24 IMPRESSION: No radiographic evidence of acute cardiopulmonary disease. Electronically Signed: Louie Vanessa MD at 2:17 EDT , Discharge Plan Triage Chief Complaint: Numb/Ting ED Provider: Thanh Mcdonald Dx/Rx/DC Orders Clinical Impression: Headache, Numbness and tingling Prescriptions: No Action (DME) marisabel.stocking,thigh,reg,med Misc See Rx Instructions .Route Qty: 24 0RF Rx Instructions: As directed hydroxyzine HCl 25 mg tablet 25 mg PO BID PRN PRN (Reason: anxiety) pantoprazole [Protonix] 40 mg tablet,delayed release (DR/EC) 40 mg PO DAILY Qty: 30 0RF Primary Care Provider: Tammy Ahn Referrals: Tammy Ahn MD [Primary Care Provider] - Activity Restrictions/Additional Instructions: Call your neurologist in the morning. Return with worsening symptoms or other concerns. Follow the primary care physician outpatient setting. Print Language: Luxembourger Disposition Disposition: Home, Self Care
[2023-12-04 03:00] VITALS: BP 131/67; PULSE 66; RESP 18; O2SAT 98
[2023-12-04] MEDS: Ondansetron 4 MG/2 ML Vial IV (03:27)
[2023-12-04] MEDS: DiphenhydrAMINE 25 MG Capsule PO (03:27)
[2023-12-04] MEDS: Potassium Chloride Oral Soln 20 MEQ/15 ML UDC 40 MEQ PO (03:47)
[2023-12-04 04:00] VITALS: BP 132/74; PULSE 67; RESP 15; O2SAT 98
[2023-12-04 04:49] VITALS: BP 149/78; PULSE 60; RESP 20; TEMP 36.5; O2SAT 93
[2023-12-04] MEDS: LORazepam 0.5 MG Tablet PO (04:53)
== END 2023-12-04 04:55 | disposition home or self-care (01) ==
PROVIDERS: Emergency Provider Emergency Medicine; PCP Internal Medicine; Visit Provider Emergency Medicine
DX: R20.0 Anesthesia of skin (principal); G40.909 Epilepsy, unspecified, not intractable, without status epilepticus; R20.2 Paresthesia of skin; R51.9 Headache, unspecified; F41.9 Anxiety disorder, unspecified; F17.210 Nicotine dependence, cigarettes, uncomplicated
CPT/HCPCS: 70450; 71046; 80048; 83735; 84439; 84443; 84481; 84484; 85025; 87631; 93005; 96361; 96374; 96375; 99285; A4216; J2405

== ENCOUNTER 2024-01-01 18:47 | Emergency (ER) | payer MEDICAID, SELFPAY ==
[2024-01-01] VITALS (7 sets, daily range): BP systolic 115–169; BP diastolic 70–84; PULSE 68–91; RESP 12–18; TEMP 36.6; O2SAT 98–100; BMI 35.5
--- NOTE | 2024-01-01 18:49 | EKG12_ITS ---
Test Reason : CP Blood Pressure : / mmHG Vent. Rate : 080 BPM Atrial Rate : 080 BPM P-R Int : 158 ms QRS Dur : 082 ms QT Int : 374 ms P-R-T Axes : 068 042 054 degrees QTc Int : 431 ms Normal sinus rhythm Normal ECG Confirmed by JOHANA WONG, ROMELIA ([id number]), editor farm journal KELLY VINCENT ([id number]) on 01/04/2024 9:27:27 AM Referred By: Confirmed By:ROMELIA VAUGHN MD
[2024-01-01 19:02] LABS: Absolute Lymphocyte Count 2.93 X10^3/uL (0.83-4.51); Absolute Neutrophil Count 3.7 X10^3/uL (2.0-7.7); Basophil# 0.04 X10^3/uL; Basophil% 0.6 % (0-1); Eosinophil# 0.11 X10^3/uL; Eosinophils% 1.6 % (0-5); Hematocrit 44.7 % (37-47); Hemoglobin 14.7 g/dL (12.0-15.0); Lymphocyte # 2.93 X10^3/ul (0.83-4.51); Lymphocyte % 41.5 % (19-41); Mean Corp Hgb Conc 32.9 g/dL (32-36); Mean Corpuscular Hgb 27.7 pg (27.0-32.0); Mean Corpuscular Volume 84.2 fL (81-99); Mean Platelet Vol. 10.4 fl (6.2-12.0); Monocyte# 0.28 X10^3/uL; NRBC Flagged by Analyzer 0 % (0-5); Neutrophil # 3.68 X10^3/uL (2.7-7.7); Platelet Count 233 K/mm3 (150-450); RBC Distribution Width CV 14.3 % (11.6-14.6); RBC Distribution Width SD 43.7 fl (35.1-43.9); Red Blood Count 5.31 M/mm3 (4.2-5.4); White Blood Count 7.1 K/mm3 (4.4-11.0)
--- NOTE | 2024-01-01 19:18 | RAD_ITS ---
INDICATION: chest pain EXAMINATION/TECHNIQUE: X-RAY - XR Chest 1 View COMPARISON: 12/04/2023. FINDINGS: The lungs are clear. The cardiomediastinal silhouette is unremarkable. No pleural effusion or pneumothorax. Degenerative changes of the thoracic spine. RAD/Chest 1 View (Portable) IMPRESSION: No acute radiographic abnormalities. Electronically Signed: Jean Echavarria MD at 19:49 EDT ,
--- OUTSIDE RECORDS SUMMARY | 2024-01-01 19:30 | XMS RPT_ITS | CCD ---
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, No Primary Care Provider Unavailabl DEEPTI Sow Referring Unavailable ALEXX SEGURA Primary Care Unavailab ALEXX Arenas Primary Care Unavailab Alexx Arenas MD Primary Care Provider SAVITA VALDEZ MD Primary Care Physician KARY GALINDO MD Attending Unavailable SAVITA VALDEZ MD Primary Care Unavailable SAVITA VALDEZ MD Primary Care Unavailable KARY GALINDO MD Attending Unavailable SAVITA VALDEZ MD Primary Care Unavailable CEE HUGGINS DO Attending Unavailable Medications Current Medications Medication Drug Class(es) Dates Sig (Normalized) Sig (Original) acetaminophen 300 mg / butalbital 50 mg / caffeine 40 mg oral capsule (1 source) Barbiturate, Central Nervous System Stimulant, Methylxanthine Start: 12-01-2023 End: 12-08-2023 take 1 capsule by mouth every four hours as needed Fioricet oral capsule - use generic Fioricet tablet Dose = 1 cap(s), Oral, q4h, PRN as needed, X 7 day(s), # 20 cap(s), 0 Refill(s) Start Date: 12/01/23 Stop Date: 12/08/23 Status: Ordered acetaminophen 325 mg / phenylephrine hydrochloride 5 mg oral tablet (8 sources) alpha-1 Adrenergic Agonist PHENYLephrine-Behzad taminophen (TYLENOL SINUS HEADACHE) 5-325 mg tab Take 2 tablets by mouth as needed. Active Comment on above: Take 2 tablets by [facility] as needed. amoxicillin 875 mg oral tablet (1 source) Penicillin-class Antibacterial Start: 11-27-2021 End: 12-04-2021 take 1 tablet by mouth twice daily amoxicillin (AMOXIL) 875 mg tablet Take 1 tablet by mouth twice daily for 7 days. 14 tablet 0 11/27/2021 12/04/2021 Active Comment on above: Take 1 tablet by rupert th twice daily for 7 days. amoxicillin 875 mg / clavulanate 125 mg oral tablet (1 source) Penicillin-class Antibacterial Start: 05-19-2022 End: 05-29-2022 take 1 tablet by mouth twice daily amoxicillin-clavu lanic acid (AUGMENTIN) 875-125 mg per tablet Indications: Acute frontal sinusitis, recurrence not specified Take 1 tablet by mouth twice daily for 10 days. 20 tablet 0 05/19/2022 05/29/2022 Active Comment on above: Take 1 tablet by rupert th twice daily for 10 days. DULoxetine 30 mg delayed release oral capsule (9 sources) Serotonin and Norepinephrine Reuptake Inhibitor Start: 12-30-2018 take 1 capsule by mouth once daily DULoxetine (CYMBALTA) 30 mg capsule Take 1 capsule by mouth once daily. 30 capsule 5 12/30/2018 Active Comment on above: Take 1 capsule by mo ut once daily. Problems Problem Classification Problem Date Documented Da te Episodic/Chronic Conditions associated with dizziness or vertigo (1 source) Dizziness; Translations: [Dizziness and giddiness] 08-04-2023 Episodic Disorders of lipid metabolism (9 sources) Hypertriglyceridemi a; Translations: [Pure hyperglyceridemia] 12-30-2018 Chronic Menstrual disorders (9 sources) Irregular periods; Translations: [Irregular menstruation, unspecified] Onset: 01-07-2012 01-07-2012 Chronic Nutritional deficiencies (9 sources) Vitamin D deficiency; Translations: [Vitamin D deficiency, unspecified] 12-30-2018 Chronic Other connective tissue disease (1 source) Pain in right thumb; Translations: [Pain in right finger(s)] 01-29-2021 Episodic Other non-traumatic joint disorders (2 sources) Pain in left knee; Translations: [Pain in joint, lower leg] Onset: 01-16-2023 01-16-2023 Episodic Other screening for suspected conditions (not mental disorders or infectious disease) (1 source) Patient encounter status; Translations: [Encounter for screening mammogram for malignant neoplasm of breast] Episodic Other upper respiratory infections (1 source) Acute frontal sinusitis; Translations: [Acute frontal sinusitis, unspecified] Episodic Otitis media and related conditions (1 source) Acute right otitis media; Translations: [Otitis media, unspecified, right ear] Episodic Residual codes; unclassified (9 sources) Tobacco use and exposure - finding; Translations: [Tobacco use] 12-30-2018 Episodic Thyroid disorders (9 sources) Subclinical hypothyroidism; Translations: [Other specified hypothyroidism] 12-30-2018 Chronic Results Test Name Value Interpretation Reference Range Facility MRI SPINE LUMBAR W/ + W/O CO NTRASTon 12-29-2023 MRI SPINE LUMBAR W/ + W/O CONTRAST ORIGINAL EXAMINATION: MRI OF THE LUMBAR SPINE WITHOUT AND WITH CONTRAST 12/28/2023 2:31 pm TECHNIQUE: Multiplanar multisequence MRI of the lumbar spine was performed without and with the administration of intravenous contrast. COMPARISON: None. HISTORY: ORDERING SYSTEM PROVIDED HISTORY: Reason for Exam: Muscle weakness (generalized) FINDINGS: BONES/ALIGNMENT: There is normal alignment of the spine. The vertebral body heights are maintained. Line There is no vertebral body gross STIR signal abnormality. There are Modic type 2 endplate signal changes at anterior L1-L2. There is superimposed low-grade diffuse hypointense marrow signal changes of the vertebral bodies, nonspecific, which may be secondary to red marrow reconversion associated with myeloproliferative disorder, chronic anemia, smoking, among other etiologies. Correlation with clinical findings may be useful. There is low-grade marrow enhancement of the sacrum, bilateral iliac bones. Intervertebral disc spaces are preserved. SPINAL CORD: The conus is at the level of T12-L1. Cauda equina is grossly normal in morphology. Small sacral meningeal cyst at S3 incidentally noted. SOFT TISSUES: No paraspinal mass identified. L1-L2: There is no significant disc protrusion, spinal canal stenosis or neural foraminal narrowing. L2-L3: There is no significant disc protrusion, spinal canal stenosis or neural foraminal narrowing. There is mild ligamentum flavum and facet hypertrophy. L3-L4: Mild disc space narrowing is present. There is mild ligamentum flavum and facet hypertrophy. There is mild disc bulge with endplate osteophytes and bilateral foraminal extension. There is no central canal stenosis. There is mild right neuroforaminal stenosis. There is bilateral facet mild osseous edema, right greater than left . There is bilateral facet mild periarticular soft tissue inflammatory change, right greater than left. Correlation with clinical findings for potential facet syndrome may be useful. L4-L5: There is moderate ligamentum flavum and facet hypertrophy. There is mild disc bulge with endplate osteophytes and bilateral foraminal extension. There is mild central canal stenosis. There is mild-moderate bilateral neuroforaminal stenosis. L5-S1: There is mild-moderate ligamentum flavum and facet hypertrophy. There is mild disc bulge with endplate osteophytes and bilateral foraminal extension. There is no central canal or neuroforaminal stenosis. IMPRESSION: 1. Multilevel degenerative changes greatest at L3-4 and L4-5 as described above. No significant central canal stenosis or neural foraminal stenosis. 2. There is superimposed low-grade diffuse marrow signal changes of the vertebral bodies, nonspecific, which may be secondary to red marrow reconversion associated with myeloproliferative disorder, chronic anemia, smoking, among other etiologies. Correlation with clinical findings may be useful. 3. At L4-L5, there is bilateral facet mild osseous edema, right greater than left as well as bilateral facet mild periarticular soft tissue inflammatory change, right greater than left compatible with degenerative change. Correlation with clinical findings for potential facet syndrome may be useful. Interpreted by: Noe Castro Preliminary Report By: Noe Castro Electronically signed By Noe Castro Dictated Date: 12/29/2023 6:20:16 PM Prelim Date: 12/29/2023 6:42:46 PM Sign Date: 12/29/2023 6:42:46 PM Ordering Provider: KARY Yusuf [facility] MRI SPINE CERVICAL W/ + W/O CONTRASTon 12-25-2023 MRI SPINE CERVICAL W/ + W/O CONTRAST ORIGINAL EXAMINATION: MRI OF THE CERVICAL SPINE WITHOUT AND WITH CONTRAST 12/25/2023 2:58 pm: TECHNIQUE: Multiplanar multisequence MRI of the cervical spine was performed without and with the administration of intravenous contrast. COMPARISON: None. HISTORY: ORDERING SYSTEM PROVIDED HISTORY: Reason for Exam: Muscle weakness (generalized) FINDINGS: BONES/ALIGNMENT: There is normal alignment of the spine. The vertebral body heights are maintained. The bone marrow signal appears unremarkable. SPINAL CORD: No abnormal cord signal is seen. SOFT TISSUES: No abnormal enhancement of the cervical spine. No paraspinal mass identified. Cervical fat planes are preserved. Extracranial cerebrovascular flow voids are maintained. C2-C3: There is no significant disc protrusion, spinal canal stenosis or neural foraminal narrowing. C3-C4: There is no significant disc protrusion, spinal canal stenosis or neural foraminal narrowing. C4-C5: There is no significant disc protrusion, spinal canal stenosis or neural foraminal narrowing. C5-C6: Minimal central disc bulge without significant narrowing of the spinal canal. The neural foramina are patent bilaterally. C6-C7: There is no significant disc protrusion, spinal canal stenosis or neural foraminal narrowing. C7-T1: There is no significant disc protrusion, spinal canal stenosis or neural foraminal narrowing. IMPRESSION: 1. No acute osseous abnormality. 2. No abnormal cord signal or enhancement. 3. Minimal central disc bulge at C5-C6 without significant spinal canal or neural foraminal narrowing. Interpreted by: Terence Kaufman Preliminary Report By: Terence Kaufman Electronically signed By Terence Kaufman Dictated Date: 12/25/2023 4:23:44 PM Prelim Date: 12/25/2023 4:25:43 PM Sign Date: 12/25/2023 4:25:43 PM Ordering Provider: KARY GALINDO [facility] MRI SPINE THORACIC W/ + W/O CONTRASTon 12-25-2023 MRI SPINE THORACIC W/ + W/O CONTRAST ORIGINAL EXAMINATION: MRI OF THE THORACIC SPINE WITHOUT AND WITH CONTRAST 12/25/2023 2:58 pm TECHNIQUE: Multiplanar multisequence MRI of the thoracic spine was performed without and with the administration of intravenous contrast. COMPARISON: None HISTORY: ORDERING SYSTEM PROVIDED HISTORY: Reason for Exam: Muscle weakness (generalized) FINDINGS: BONES/ALIGNMENT: There is normal alignment of the spine. The vertebral body heights are maintained. The bone marrow signal appears unremarkable. SPINAL CORD: No abnormal cord signal is seen. No abnormal enhancement. SOFT TISSUES: No abnormal enhancement of the thoracic spine. No paraspinal mass identified. Scattered perineural cysts T3 on right, T7 on the lymph, T8 on the right, as well as further along the right nerve root within the intercostal space, T9 bilaterally, and T10 on the right. DEGENERATIVE CHANGES: No significant spinal canal stenosis or neural foraminal narrowing of the thoracic spine. IMPRESSION: 1. No significant spinal canal stenosis or neural foraminal narrowing. 2. No abnormal enhancement. 3. Scattered perineural cysts. Interpreted by: Terence Kaufman Preliminary Report By: Terence Kaufman Electronically signed By Terence Kaufman Dictated Date: 12/25/2023 4:13:29 PM Prelim Date: 12/25/2023 4:23:33 PM Sign Date: 12/25/2023 4:23:33 PM Ordering Provider: KARY Yusuf [facility] .Auto Diffon 12-01-2023 Basophil, Absolute 0.1 10 3/mcL Normal 0.0-0.2 [facility] Comment on above: Performed By: #### C BC, BMP, ADIFF, MDW, GFR, ANEU, TROPHS #### [address] [address] Basophils/100 WBC (Bld) 0.6 % Normal 0.0-2.5 [facility] Comment on above: Performed By: #### C BC, BMP, ADIFF, MDW, GFR, ANEU, TROPHS #### [address] [address] Eosinophil, Absolute 0.1 10 3/mcL Normal 0.0-0.7 [facility] Comment on above: Performed By: #### C BC, BMP, ADIFF, MDW, GFR, ANEU, TROPHS #### [address] [address] Eosinophils/100 WBC (Bld) 1.2 % Normal 0.0-7.0 [facility] Comment on above: Performed By: #### C BC, BMP, ADIFF, MDW, GFR, ANEU, TROPHS #### [address] [address] Lymphocyte, Absolute 2.2 10 3/mcL Normal 0.9-4.3 [facility] Comment on above: Performed By: #### C BC, BMP, ADIFF, MDW, GFR, ANEU, TROPHS #### [address] [address] Lymphocytes/100 WBC (Bld) 27.4 % Normal 20.0-40.0 [facility] Comment on above: Performed By: #### C BC, BMP, ADIFF, MDW, GFR, ANEU, TROPHS #### [address] [address] Monocyte, Absolute 0.2 10 3/mcL Normal 0.1-1.4 [facility] Comment on above: Performed By: #### C BC, BMP, ADIFF, MDW, GFR, ANEU, TROPHS #### [address] [address] Monocytes/100 WBC (Bld) 2.6 % Normal 2.0-13.0 [facility] Comment on above: Performed By: #### C BC, BMP, ADIFF, MDW, GFR, ANEU, TROPHS #### [address] [address] Neutrophils/100 WBC (Bld) 68.2 % Normal 50.0-75.0 [facility] Comment on above: Performed By: #### C BC, BMP, ADIFF, MDW, GFR, ANEU, TROPHS #### [address] [address] .GFRon 12-01-2023 GFR 70 ml/min/1.73sqm Normal [facility] Comment on above: Result Comment: GFR Population mean for , Non- Americans Ages 20-29 = 116 mL/min/1.73 sq.m. Ages 30-39 = 107 mL/min/1.73 sq.m. Ages 40-49 = 99 mL/min/1.73 sq.m. Ages 50-59 = 93 mL/min/1.73 sq.m. Ages 60-69 = 85 mL/min/1.73 sq.m. Ages 70+ = 75 mL/min/1.73 sq.m. Chronic Kidney Disease: Less than 60 mL/min/1.73 square meters End Stage Renal Disease: Less than 15 mL/min/1.73 square meters Performed By: #### C BC, BMP, ADIFF, MDW, GFR, ANEU, TROPHS #### [address] [address] GFR Non- 57 ml/min/1.73sqm Normal [facility] Comment on above: Result Comment: GFR Population mean for , Non- Americans Ages 20-29 = 116 mL/min/1.73 sq.m. Ages 30-39 = 107 mL/min/1.73 sq.m. Ages 40-49 = 99 mL/min/1.73 sq.m. Ages 50-59 = 93 mL/min/1.73 sq.m. Ages 60-69 = 85 mL/min/1.73 sq.m. Ages 70+ = 75 mL/min/1.73 sq.m. Chronic Kidney Disease: Less than 60 mL/min/1.73 square meters End Stage Renal Disease: Less than 15 mL/min/1.73 square meters Performed By: #### C BC, JUDD, GISELLA, W, GFR, ANEU, TROPHS #### [address] [address] .MDWon 12-01-2023 Monocyte Distribution Width 19.74 Normal 0.00-20.00 [facility] Comment on above: Result Comment: For ED adult patients suspected of sepsis, MDW<=20.0 does not rule out sepsis or risk of sepsis Performed By: #### C JESUS MANUEL, GISELLA WHALEY MDW, GFR, ANEU, TROPHS #### [address] [address] .NEUABSon 12-01-2023 Neutrophil, Absolute 5.6 10 3/mcL Normal 2.3-8.1 [facility] Comment on above: Performed By: #### C BC, JUDD, GISELLA, KELSY, GFR, ANEU, TROPHS #### [address] [address] BMPon 12-01-2023 BUN/Creatinine Ratio 8 ratio Normal 7-27 [facility] Comment on above: Performed By: #### C BC, BMP, GISELLA, W, GFR, ANEU, TROPHS #### [address] [address] Calcium [Mass/Vol] 9.2 mg/dL Normal 8.4-10.2 [facility] Comment on above: Performed By: #### C BC, BMP, ADIFF, MDW, GFR, ANEU, TROPHS #### [place] [address] Chloride [Moles/Vol] 106 mmol/L Normal 98-107 [facility] Comment on above: Performed By: #### C BC, BMP, ADIFF, MDW, GFR, ANEU, TROPHS #### [place] [address] CO2 [Moles/Vol] 28 mmol/L Normal 22-29 [facility] Comment on above: Performed By: #### C BC, BMP, ADIFF, MDW, GFR, ANEU, TROPHS #### [place] [address] Creatinine [Mass/Vol] 1.02 mg/dL Normal 0.55-1.02 [facility] Comment on above: Result Comment: Test ing performed on [employer] Dimension EXL analyzer using a modified kinetic Mynor technique. Performed By: #### C BC, BMP, ADIFF, MDW, GFR, ANEU, TROPHS #### [place] [address] Electrolyte Balance 10.0 mEq/L Normal 4.0-15.0 [facility] Comment on above: Performed By: #### C BC, BMP, ADIFF, MDW, GFR, ANEU, TROPHS #### [place] [address] Glucose [Mass/Vol] 94 mg/dL Normal 70-105 [facility] Comment on above: Performed By: #### C BC, BMP, ADIFF, MDW, GFR, ANEU, TROPHS #### [place] [address] Potassium [Moles/Vol] 4.1 mmol/L Normal 3.5-5.1 [facility] Comment on above: Performed By: #### C BC, BMP, ADIFF, MDW, GFR, ANEU, TROPHS #### [place] [id number] Sodium [Moles/Vol] 144 mmol/L Normal 136-145 [facility] Comment on above: Performed By: #### C BC, BMP, ADIFF, MDW, GFR, ANEU, TROPHS #### [address] [address] Urea nitrogen [Mass/Vol] 8 mg/dL Normal 7-18 [facility] Comment on above: Performed By: #### C BC, BMP, ADIFF, MDW, GFR, ANEU, TROPHS #### [address] [address] CBCon 12-01-2023 Erythrocyte distribution width (RBC) [Ratio] 14.8 % Normal 11.5-15.5 [facility] Comment on above: Performed By: #### C BC, BMP, ADIFF, MDW, GFR, ANEU, TROPHS #### [address] [address] Hematocrit (Bld) [Volume fraction] 45.4 % Normal 34.0-46.0 [facility] Comment on above: Performed By: #### C BC, BMP, ADIFF, MDW, GFR, ANEU, TROPHS #### [address] [address] Hgb 15.4 G/dL Normal 12.0-16.0 [facility] Comment on above: Performed By: #### C BC, BMP, ADIFF, MDW, GFR, ANEU, TROPHS #### [address] [address] MCH (RBC) [Entitic mass] 28.2 pg Normal 27.0-33.0 [facility] Comment on above: Performed By: #### C BC, BMP, ADIFF, MDW, GFR, ANEU, TROPHS #### [address] [address] MCHC 33.9 G/dL Normal 32.0-36.0 [facility] Comment on above: Performed By: #### C BC, BMP, ADIFF, MDW, GFR, ANEU, TROPHS #### [address] [address] MCV (RBC) [Entitic vol] 83.1 fL Normal 80.0-99.0 [facility] Comment on above: Performed By: #### C BC, JUDD, GISELLA, MDW, GFR, ANEU, TROPHS #### [place] [id number] Platelet 232 10 3/mcL Normal 150-450 [facility] Comment on above: Performed By: #### C JESUS MANUEL, JUDD, GISELLA, MDW, GFR, ANEU, TROPHS #### [place] [address] Platelet mean volume (Bld) [Entitic vol] 8.0 fL Normal 6.6-10.5 [facility] Comment on above: Performed By: #### C JESUS MANUEL, JUDD, GISELLA, KELSY, GFR, ANEU, TROPHS #### [place] [address] RBC 5.46 10 6/mcL High 4.10-5.30 [facility] Comment on above: Performed By: #### C JESUS MANUEL, JUDD, GISELLA, W, GFR, ANEU, TROPHS #### [place] [address] WBC 8.2 10 3/mcL Normal 4.5-10.8 [facility] Comment on above: Performed By: #### C JESUS MANUEL, JUDD, GISELLA, W, GFR, ANEU, TROPHS #### [place] [address] LABORATORYOrdered By: SYSTEM SYSTEM on 12-01-2023 Basophils (Bld) [#/Vol] 0.1 103/mcL Normal 0.0 - 0.2 10^3/mcL AO Workflow SS Basophils/100 WBC (Bld) 0.6 % Normal 0.0 - 2.5 % AO Workflow SS Calcium [Mass/Vol] 9.2 mg/dL Normal 8.4 - 10. 2 mg/dL AO ADM SS Chloride [Moles/Vol] 106 mmol/L Normal 98 - 10 7 mmol/L AO ADM SS CO2 [Moles/Vol] 28 mmol/L Normal 22 - 29 mmol/L AO ADM SS Creatinine [Mass/Vol] 1.02 mg/dL Normal 0.55 - 1.02 mg/dL AO ADM SS Comment on above: Interpretive Data: T esting performed on Siemens Dimension EXL analyzer using a modified kinetic Mynor technique. Electrolyte Balance 10.0 mEq/L Normal 4.0 - 15 .0 mEq/L AO ADM SS Eosinophil, Absolute 0.1 103/mcL Normal 0.0 - 0 .7 10^3/mcL AO Workflow SS Eosinophils/100 WBC (Bld) 1.2 % Normal 0.0 - 7.0 % AO Workflow SS Erythrocyte distribution width (RBC) [Ratio] 14.8 % Normal 11.5 - 15.5 % AO Workflow SS GFR/1.73 sq M.predicted among blacks MDRD (S/P/Bld) [Vol rate/Area] 70 ml/min/1.73sqm Invalid Interpretation Code AO Chemistry S Comment on above: Interpretive Data: GFR Population mean for , Non- Americans Ages 20-29 = 116 mL/min/1.73 sq.m. Ages 30-39 = 107 mL/min/1.73 sq.m. Ages 40-49 = 99 mL/min/1.73 sq.m. Ages 50-59 = 93 mL/min/1.73 sq.m. Ages 60-69 = 85 mL/min/1.73 sq.m. Ages 70+ = 75 mL/min/1.73 sq.m. Chronic Kidney Disease: Less than 60 mL/min/1.73 square meters End Stage Renal Disease: Less than 15 mL/min/1.73 square meters GFR/1.73 sq M.predicted among non-blacks MDRD (S/P/Bld) [Vol rate/Area] 57 ml/min/1.73sqm Invalid Interpretation Code AO Chemistry S Comment on above: Interpretive Data: GFR Population mean for , Non- Americans Ages 20-29 = 116 mL/min/1.73 sq.m. Ages 30-39 = 107 mL/min/1.73 sq.m. Ages 40-49 = 99 mL/min/1.73 sq.m. Ages 50-59 = 93 mL/min/1.73 sq.m. Ages 60-69 = 85 mL/min/1.73 sq.m. Ages 70+ = 75 mL/min/1.73 sq.m. Chronic Kidney Disease: Less than 60 mL/min/1.73 square meters End Stage Renal Disease: Less than 15 mL/min/1.73 square meters Glucose [Mass/Vol] 94 mg/dL Normal 70 - 105 mg/dL AO ADM SS Hematocrit (Bld) [Volume fraction] 45.4 % Normal 34.0 - 46.0 % AO Workflow SS Hemoglobin (Bld) [Mass/Vol] 15.4 G/dL Normal 12.0 - 16.0 G/dL AO Workflow SS Lymphocytes (Bld) [#/Vol] 2.2 103/mcL Normal 0.9 - 4.3 10^3/mcL AO Workflow SS Lymphocytes/100 WBC (Bld) 27.4 % Normal 20.0 - 40.0 % AO Workflow SS MCH (RBC) [Entitic mass] 28.2 pg Normal 27.0 - 33.0 pg AO Workflow SS MCHC 33.9 G/dL Normal 32.0 - 36.0 G/dL AO Workflow SS MCV (RBC) [Entitic vol] 83.1 fL Normal 80.0 - 99.0 fL AO Workflow SS Monocyte distribution width Auto (Bld) [Entitic vol] 19.74 1 Normal 0.00 - 20.00 AO Workflow SS Comment on above: Result Comment: For ED adult patients suspected of sepsis, MDW<=20.0 does not rule out sepsis or risk of sepsis Monocytes (Bld) [#/Vol] 0.2 103/mcL Normal 0.1 - 1.4 10^3/mcL AO Workflow SS Monocytes/100 WBC (Bld) 2.6 % Normal 2.0 - 13.0 % AO Workflow SS Neutrophils (Bld) [#/Vol] 5.6 103/mcL Normal 2.3 - 8.1 10^3/mcL AO Workflow SS Neutrophils/100 WBC (Bld) 68.2 % Normal 50.0 - 75.0 % AO Workflow SS Platelet mean volume (Bld) [Entitic vol] 8.0 fL Normal 6.6 - 10.5 fL AO Workflow SS Platelets (Bld) [#/Vol] 232 103/mcL Normal 150 - 450 10^3/mcL AO Workflow SS Potassium [Moles/Vol] 4.1 mmol/L Normal 3.5 - 5.1 mmol/L AO ADM SS RBC (Bld) [#/Vol] 5.46 106/mcL High 4.10 - 5.3 0 10^6/mcL AO Workflow SS Sodium [Moles/Vol] 144 mmol/L Normal 136 - 145 mmol/L AO ADM SS Troponin I.cardiac DL <= 0.01 ng/mL [Mass/Vol] ng/L Normal 0 - 51 ng/L AO ADM SS Comment on above: Interpretive Data: H igh Sensitive Troponin I Reference Ranges: Female: 0-51 ng/L Male: 0-76 ng/L Testing performed on Dimension EXL using a homogeneous sandwich chemiluminescent immunoassay based on [employer] technology. Urea nitrogen [Mass/Vol] 8 mg/dL Normal 7 - 18 mg/dL AO ADM SS Urea nitrogen/Creatinine [Mass ratio] 8 ratio Normal 7 - 27 ratio AO ADM SS WBC (Bld) [#/Vol] 8.2 103/mcL Normal 4.5 - 10.8 10^3/mcL AO Workflow SS TROPHSaurabh 12-01-2023 High Sensitivity Troponin I <4 Normal 0-51 [facility] Comment on above: Result Comment: High Sensitive Troponin I Reference Ranges: Female: 0-51 ng/L Male: 0-76 ng/L Testing performed on Dimension EXL using a homogeneous sandwich chemiluminescent immunoassay based on [employer] technology. Performed By: #### C BC, BMP, GISELLA, KELSY, GFR, ANEU, TROPHS #### [facility] [address] [place] [id number] Ludivina 08-13-2023 DERIANN Telephone (NEMOWS) LADARIUS FIGUEROA ([id number]) 1975 F Date Time Provider Department 08/13/23 NO PCP NEMDONTE During your visit today, we recorded the following information about you: Shane Lee RN 08/13/2023 9:02 AM Signed [facility] phoned asking if neurology dept received a referral from them for this patient. They faxed one on 07-10-23 and 08-12-23. Verified correct fax number. Dx: neuralgia, benign neoplasm. They also faxed a referral to neuro surgeon. Asking office let them know if you received the referral. Pau Briggs LPN 08/13/2023 10:42 AM Signed Referral received by fax in two parts on referral page, second contained office visit (patient was new to [facility] for Emergency Room follow up) not seen prior. Phone call placed to [facility] spoke to nurse advised of scheduling process (referral to Neurosurgery our office would need MRI testing results) none sent with original referral. [facility] will fax requested document then office will reach out to patient to initiate scheduling. Pau Briggs LPN Allergies As of Date: 08/13/2023 (No Known Allergies) Date Reviewed: 01/16/2023 Reviewed by: Deepti Hernandez APRN.DIESEL CRANE OPERATOR - Fully Assessed Reason for Visit: Referral faxed to neurology [Other] Prescriptions as of 08/14/2023 - PHENYLephrine-Acetamino phen (TYLENOL SINUS HEADACHE) 5-325 mg tab Take 2 tablets by mouth as needed. - DULoxetine (CYMBALTA) 30 mg capsule Take 1 capsule by mouth once daily. Problem List As Of Date 08/13/2023 Noted Resolved Irregular periods [N92.6] 01/07/2012 Subclinical hypothyroidism [E03.8] Vitamin D insufficiency [E55.9] Tobacco use [Z72.0] Hypertriglyceridemia [E78.1] Encounter Status:Closed by RADHA LIRIANO on 08/14/23 [facility] CNOVon 08-04-2023 CNOV Office Visit (WSTR ) LADARIUS FIGUEROA ([id number]) 1975 F Date Time Provider Department 08/04/23 10:30 AM BILLY GOMES [facility] During your visit today, we recorded the following information about you: Billy Gomes PA 08/04/2023 10:44 AM Signed 48-year-old female presents for lightheadedness and dizziness. Patient states she was seen at the ER Thursday and had an MRI revealing meningioma. She states that she was referred to neurology, but unable to get an appointment for 1 year. She does have an appointment with the PCP on Thursday. Patient states that she is still feeling dizzy and lightheaded. She states that the ER did not prescribe her anything for this. At this time, I discussed limitations of express care. Patient really does need close follow-up with neurology. Advised her that if she is symptomatic having lightheadedness and dizziness, needs to be evaluated in the emergency room. She understands. Did offer to schedule an appointment with [facility] PCP to establish care, but patient does not want to travel. She will keep her appointment with [facility] PCP Thursday and go to ER now for evaluation of her dizziness. Allergies As of Date: 08/04/2023 (No Known Allergies) Date Reviewed: 01/16/2023 Reviewed by: Deepti Hernandez APRN.DIESEL CRANE OPERATOR - Fully Assessed Primary Visit Diagnosis:Dizziness [R42] Prescriptions as of 08/04/2023 - PHENYLephrine-Acetamino phen (TYLENOL SINUS HEADACHE) 5-325 mg tab Take 2 tablets by mouth as needed. - DULoxetine (CYMBALTA) 30 mg capsule Take 1 capsule by mouth once daily. Problem List As Of Date 08/04/2023 Noted Resolved Irregular periods [N92.6] 01/07/2012 Subclinical hypothyroidism [E03.8] Vitamin D insufficiency [E55.9] Tobacco use [Z72.0] Hypertriglyceridemia [E78.1] Encounter Status:Closed by BILLY GOMES on 08/04/23 Normal [facility] CNOVon 01-16-2023 CNOV Office Visit ([facility] ) LADARIUS FIGUEROA ([id number]) 1975 F Date Time Provider Department 01/16/23 10:45 AM DEEPTI HERNANDEZ [facility] During your visit today, we recorded the following information about you: Temperature Pulse Respiration Blood pressure 97.2 degrees 71/minute 18/minute 162/82 Weight 94.3 kg Deepti Hernandez, AMANUEL.DIESEL CRANE OPERATOR 01/16/2023 11:23 AM Signed Subjective The history is provided by the patient. No language translator was used. HPI Ladarius Figueroa is a 47 year old female who presents today for CC of left knee pain this started 2 months ago. She denies any known injury or trauma. She occasionally uses tylenol or ibuprofen. Social History Tobacco Use Smoking status: Every Day Packs/day: 1.00 Years: 30.00 Additional pack years: 0.00 Total pack years: 30.00 Types: Cigarettes Smokeless tobacco: Never Substance Use Topics Alcohol use: Yes Comment: rarely, once a year Drug use: No PAST MEDICAL HISTORY Diagnosis Date Hypertriglyceridemia Myalgia Obesity (BMI 30-39.9) Subclinical hypothyroidism Tobacco use Vitamin D insufficiency I have confirmed and edited as necessary, the [facility] Review of Systems Constitutional: Negative for chills and fever. Musculoskeletal: Positive for joint pain (knee). Negative for myalgias. Skin: Negative for itching and rash. All other systems reviewed and are negative. Objective Physical Exam Vitals and nursing note reviewed. Pulmonary: Effort: Pulmonary effort is normal. Musculoskeletal: Right knee: Normal. Left knee: Crepitus present. No swelling, deformity, effusion, erythema, ecchymosis, lacerations or bony tenderness. Normal range of motion. Tenderness present over the medial joint line and MCL. No LCL laxity, MCL laxity, ACL laxity or PCL laxity.Normal alignment, normal meniscus and normal patellar mobility. Normal pulse. Instability Tests: Anterior drawer test negative. Posterior drawer test negative. Anterior Jonnie test negative. Medial Ephraim test negative and lateral Ephraim test negative. Skin: General: Skin is warm and dry. Neurological: Mental Status: She is alert and oriented to person, place, and time. Psychiatric: Mood and Affect: Affect normal. ASSESSMENT/PLAN: 1. Acute pain of left knee - ICD9: 719.46, ICD10: M25.562 Possible strain Ibuprofen as discussed for 10-14 days Tylenol prn Behzad wrap, knee sleeve If no improvement follow up with ortho for further evaluation - XR KNEE GENERAL 4V AP BOTH/PA BOTH/LAT/MERC LEFT FINDINGS: No acute fractures or subluxations are noted. Bony fragmentation seen along the tibial tubercle, likely chronic. The joint spaces are maintained, without obvious osteophyte formation. There is no evidence of joint effusion. The mineralization of the bones is normal. There is no significant soft tissue swelling. IMPRESSION: No acute radiographic abnormalities seen in the left knee. Interpreted by : DAVID MEZA MD Diagnosis and treatment plan were discussed and questions were answered to the patient's satisfaction. Pt acknowledged understanding of concepts and follow up plan. Specific signs and symptoms that would indicate the need for higher level of care were discussed in detail warranting prompt ER evaluation. Deepti Hernandez APRN.Deepti Rai APRN.DERIAN 01/16/2023 11:16 AM Signed Rest, ice, knee sleeve or behzad wrap. Tylenol (generic acetaminophen) 500 mg-2 tabs every 8 hrs. as needed for fever and aches Ibuprofen 600 mg (3-200mg tablets) every 6 hours Follow up with orth as needed Referring Provider: SELF [200] Allergies As of Date: 01/16/2023 (No Known Allergies) Date Reviewed: 01/16/2023 Reviewed by: Deepti Hernandez APRN.DIESEL CRANE OPERATOR - Fully Assessed Reason for Visit: Left Knee Pain [1208] Cmt: X2 months, getting worse Primary Visit Diagnosis:Acute pain of left knee [M25.562] Order(s):XR KNEE GENERAL 4V AP BOTH/PA BOTH/LAT/MERC LEFT [[id number]] Order #: [id number] FUTURE CONSULT TO ORTHOPAEDICS [9026] Order #: [id number]: 1 FUTURE Prescriptions as of 01/16/2023 - PHENYLephrine-Acetamino phen (TYLENOL SINUS HEADACHE) 5-325 mg tab Take 2 tablets by mouth as needed. - DULoxetine (CYMBALTA) 30 mg capsule Take 1 capsule by mouth once daily. Problem List As Of Date 01/16/2023 Noted Resolved Irregular periods [N92.6] 01/07/2012 Subclinical hypothyroidism [E03.8] Vitamin D insufficiency [E55.9] Tobacco use [Z72.0] Hypertriglyceridemia [E78.1] Other instructions from your clinician: Rest, ice, knee sleeve or behzad wrap. Tylenol (generic acetaminophen) 500 mg-2 tabs every 8 hrs. as needed for fever and aches Ibuprofen 600 mg (3-200mg tablets) every 6 hours Follow up with orth as needed Encounter Status:Closed by DEEPTI HERNANDEZ on 01/16/23 Normal [facility] XR KNEE 4V AP/PA BOTH+LAT/ME R LTon 01-16-2023 XR KNEE 4V AP/PA BOTH+LAT/RIKI LT * * *Final Report* * * DATE OF EXAM: Jan 16 2023 11:07AM WOX 5202 - XR KNEE 4V AP/PA BOTH+LAT/RIKI LT / PROCEDURE REASON: Acute pain of left knee * * * * Physician Interpretation * * * * EXAM TITLE: XR KNEE 4V AP/PA BOTH+LAT/RIKI LT EXAM DATE/TIME: 01/16/2023 11:07 AM COMPARISON: None. CLINICAL INDICATION/HISTORY: Acute left knee pain. TECHNIQUE: AP/PA, lateral and sunrise views of the left knee are presented. FINDINGS: No acute fractures or subluxations are noted. Bony fragmentation seen along the tibial tubercle, likely chronic. The joint spaces are maintained, without obvious osteophyte formation. There is no evidence of joint effusion. The mineralization of the bones is normal. There is no significant soft tissue swelling. IMPRESSION: No acute radiographic abnormalities seen in the left knee. [employer]: ROSEMARIE Transcribe Date/Time: Jan 16 2023 11:07A Dictated by : DAVID MEZA MD This examination was interpreted and the report reviewed and electronically signed by: DAVID MEZA MD on Jan 16 2023 11:09AM EST [id number] Normal [facility] XR Knee - left 4 Viewson IMPRESSION: No acute radiographic abnormalities seen in the left knee. [employer]: ROSEMARIE Transcribe Date/Time: Jan 16 2023 11:07A Dictated by : DAVID MEZA MD This examination was interpreted and the report reviewed and electronically signed by: DAVID MEZA MD on Jan 16 2023 11:09AM [facility] DIVISION OF RADIOLOGY * * *Final Report* * * DATE OF EXAM: Jan 16 2023 11:07AM WOX 5202 - XR KNEE 4V AP/PA BOTH+LAT/RIKI LT / PROCEDURE REASON: Acute pain of left knee * * * * Physician Interpretation * * * * EXAM TITLE: XR KNEE 4V AP/PA BOTH+LAT/RIKI LT EXAM DATE/TIME: 01/16/2023 11:07 AM COMPARISON: None. CLINICAL INDICATION/HISTORY: Acute left knee pain. TECHNIQUE: AP/PA, lateral and sunrise views of the left knee are presented. FINDINGS: No acute fractures or subluxations are noted. Bony fragmentation seen along the tibial tubercle, likely chronic. The joint spaces are maintained, without obvious osteophyte formation. There is no evidence of joint effusion. The mineralization of the bones is normal. There is no significant soft tissue swelling. DIVISION OF RADIOLOGY Provider, [facility] - 01/16/2023 * * *Final Report* * * DATE OF EXAM: Jan 16 2023 11:07AM WOX 5202 - XR KNEE 4V AP/PA BOTH+LAT/RIKI LT / PROCEDURE REASON: Acute pain of left knee * * * * Physician Interpretation * * * * EXAM TITLE: XR KNEE 4V AP/PA BOTH+LAT/RIKI LT EXAM DATE/TIME: 01/16/2023 11:07 AM COMPARISON: None. CLINICAL INDICATION/HISTORY: Acute left knee pain. TECHNIQUE: AP/PA, lateral and sunrise views of the left knee are presented. FINDINGS: No acute fractures or subluxations are noted. Bony fragmentation seen along the tibial tubercle, likely chronic. The joint spaces are maintained, without obvious osteophyte formation. There is no evidence of joint effusion. The mineralization of the bones is normal. There is no significant soft tissue swelling. IMPRESSION IMPRESSION: No acute radiographic abnormalities seen in the left knee. [employer]: ROSEMARIE Transcribe Date/Time: Jan 16 2023 11:07A Dictated by : DAVID MEZA MD This examination was interpreted and the report reviewed and electronically signed by: DAVID MEZA MD on Jan 16 2023 11:09AM EST [facility] Radiology Study observation (narrative) [facility] XR Knee - left 4 ViewsOrdere d By: Ccf Provider on 01-16-2023 [facility] XR Finger - right AP and Lat eral and obliqueon 01-29-2021 IMPRESSION: Findings are suggestive of degenerative changes in the first digit. [employer]: PSCB Transcribe Date/Time: Jan 29 2021 11:43A Dictated by : DAVID MEZA MD This examination was interpreted and the report reviewed and electronically signed by: DAVID MEZA MD on Jan 29 2021 11:47AM [facility] DIVISION OF RADIOLOGY * * *Final Report* * * DATE OF EXAM: Jan 29 2021 11:26AM WOX 5319 - XR DIGIT 3V FRONTAL/LAT/OBL RT / PROCEDURE REASON: Pain of right thumb * * * * Physician Interpretation * * * * EXAM TITLE: XR DIGIT 3V FRONTAL/LAT/OBL RT EXAM DATE/TIME: 01/29/2021 11:26 AM COMPARISON: None. CLINICAL INDICATION/HISTORY: Pain. No injury. TECHNIQUE: PA, lateral and oblique views of the first digit of the right hand are presented. FINDINGS: No acute fractures or subluxations are noted. Interphalangeal joint space narrowing is noted, with associated osteophyte formation. Mild osteophyte formation involving the carpometacarpal joint. The mineralization of the bones is normal. There are tiny calcifications along the metacarpophalangeal joint. DIVISION OF RADIOLOGY Provider, [facility] - 01/29/2021 * * *Final Report* * * DATE OF EXAM: Jan 29 2021 11:26AM WOX 5319 - XR DIGIT 3V FRONTAL/LAT/OBL RT / PROCEDURE REASON: Pain of right thumb * * * * Physician Interpretation * * * * EXAM TITLE: XR DIGIT 3V FRONTAL/LAT/OBL RT EXAM DATE/TIME: 01/29/2021 11:26 AM COMPARISON: None. CLINICAL INDICATION/HISTORY: Pain. No injury. TECHNIQUE: PA, lateral and oblique views of the first digit of the right hand are presented. FINDINGS: No acute fractures or subluxations are noted. Interphalangeal joint space narrowing is noted, with associated osteophyte formation. Mild osteophyte formation involving the carpometacarpal joint. The mineralization of the bones is normal. There are tiny calcifications along the metacarpophalangeal joint. IMPRESSION IMPRESSION: Findings are suggestive of degenerative changes in the first digit. [employer]: ROSEMARIE Transcribe Date/Time: Jan 29 2021 11:43A Dictated by : DAVID MEZA MD This examination was interpreted and the report reviewed and electronically signed by: DAVID MEZA MD on Jan 29 2021 11:47AM EST [facility] Radiology Study observation (narrative) [facility] XR Finger - right AP and Lat eral and obliqueOrdered By: Ccf Provider on 01-29-2021 [facility] Vital Signs Date Time Vital Sign Value Performing Clinician Facility 12-01-2023 21:13-0400 Diastolic Blood Pressure Non-Invasive 63 mm[Hg] CEE [employer] DO [facility] 12-01-2023 21:13-0400 Heart rate 80 /min CEE luxustravel.esT DO [facility] 12-01-2023 21:13-0400 Respiratory rate 16 /min [facility]EE [facility] DO [facility] 12-01-2023 21:13-0400 Systolic Blood Pressure Non-Invasive 130 mm[Hg] CEE luxustravel[employer]esT DO [facility] 12-01-2023 19:29-0400 Blood Pressure Location CEE [employer]T DO [facility] 12-01-2023 19:29-0400 Blood Pressure Method CEE SIMONT D O [facility] 12-01-2023 19:29-0400 Body height 160 cm CEE [employer]ustravel[employer]esT DO [facility] 12-01-2023 19:29-0400 Body temperature 97.34 [degF] CEE SIMONT DO [facility] 12-01-2023 19:29-0400 Body weight 90.9 kg CEE SIMONT DO [facility] 12-01-2023 19:29-0400 Diastolic Blood Pressure Non-Invasive 81 mm[Hg] CEE SIMONT DO [facility] 12-01-2023 19:29-0400 Heart rate 89 /min CEE HUGGINS DO [facility] 12-01-2023 19:29-0400 Respiratory rate 18 /min CEE SIMONT DO [facility] 12-01-2023 19:29-0400 Systolic Blood Pressure Non-Invasive 145 mm[Hg] CEE HUGGINS DO [facility] 05-19-2022 13:06-0400 Body temperature 98.01 [degF] Tasha Bogner PA-C Work Phone: [facility] 05-19-2022 13:06-0400 Body weight 91.63 kg Tasha Bogner PA-C Work Phone: [facility] 05-19-2022 13:06-0400 Diastolic blood pressure 76 mm[Hg] Tasha Bogner PA-C Work Phone: [facility] 05-19-2022 13:06-0400 Heart rate 80 /min Tasha Bogner PA-C Work Phone: [facility] 05-19-2022 13:06-0400 Respiratory rate 18 /min Tasha Bogner PA-C Work Phone: [facility] 05-19-2022 13:06-0400 SaO2% (BldA) [Mass fraction] 99 % Tasha Bogner PA-C Work Phone: [facility] 05-19-2022 13:06-0400 Systolic blood pressure 110 mm[Hg] Tasha Souza PA-C Work Phone: [facility] 11-27-2021 11:25-0400 Body temperature 96.91 [degF] Latrice Lutz APRN.DIESEL CRANE OPERATOR Work Phone: [facility] 11-27-2021 11:25-0400 Body weight 91.81 kg Latrice Lutz APRN.DIESEL CRANE OPERATOR Work Phone: [facility] 11-27-2021 11:25-0400 Diastolic blood pressure 80 mm[Hg] Latrice Lutz APRN.DIESEL CRANE OPERATOR Work Phone: [facility] 11-27-2021 11:25-0400 Heart rate 74 /min Latrice Lutz APRN.DIESEL CRANE OPERATOR Work Phone: [facility] 11-27-2021 11:25-0400 Respiratory rate 21 /min Latrice Lutz APRN.DIESEL CRANE OPERATOR Work Phone: [facility] 11-27-2021 11:25-0400 SaO2% (BldA) [Mass fraction] 99 % Latrice Lutz APRN.DIESEL CRANE OPERATOR Work Phone: [facility] 11-27-2021 11:25-0400 Systolic blood pressure 140 mm[Hg] Latrice Lutz APRN.DIESEL CRANE OPERATOR Work Phone: [facility] Encounters Encounter Date Encounter Type Care Provider Facility Start: 12-28-2023 End: 12-28-2023 ambulatory KARY GALINDO MD Facility:[facility] Start: 12-28-2023 End: 12-28-2023 Patient encounter procedure KARY GALINDO MD [facility] Start: 12-25-2023 End: 12-25-2023 ambulatory SAVITA VALDEZ MD Facility:[facility] Start: 12-25-2023 End: 12-25-2023 Patient encounter procedure KARY GALINDO MD [facility] Start: 12-01-2023 End: 12-01-2023 Emergency department patient visit CEE HUGGINS DO [facility] Start: 08-13-2023 Telephone encounter No Pcp AMANUEL gonsales Comment on above: Referral [place] [facility] Start: 08-04-2023 End: 08-04-2023 ambulatory DEEPTI HERNANDEZ Facility:[facility] Start: 08-04-2023 End: 08-04-2023 Patient encounter procedure Billy LONGORIA Work Phone: [facility] Comment on above: Dizziness (Primary D x) Start: 02-11-2023 ambulatory No Pcp ELEMENTARY ELL TE[facility] Start: 02-06-2023 ambulatory No Pcp ELEMENTARY ELL TE[facility] Start: 01-16-2023 End: 01-16-2023 Subsequent hospital visit by physician Zulma [facility] Thanh Work Phone: Radiology Comment on above: Acute pain of left k nee [M25.562] Start: 01-16-2023 End: 01-16-2023 ambulatory ALEXX SEGURA Facility:[facility] Start: 05-19-2022 End: 05-19-2022 Office outpatient visit 25 minutes Tasha Souza PA-C Work Phone: [facility] Comment on above: Acute frontal sinusi tis, recurrence not specified (Primary Dx) Start: 11-27-2021 End: 11-27-2021 Patient encounter procedure Latrice Lutz APRN.CNP Work Phone: [facility] Comment on above: Acute otitis media, right (Primary Dx) Start: 09-04-2021 ambulatory Alexx Segura MD Work Phone: Internal Medicine [facility] Start: 01-29-2021 End: 01-29-2021 Subsequent hospital visit by physician Zulma [facility] Thanh Work Phone: Radiology Comment on above: Pain of right thumb [M79.644] Procedures Date Procedure Procedure Detail Performing Clinician Start: 01-16-2023 Radiologic exam knee complete 4/more views Deepti Hernandez ELEMENTARY ELL TEACHER.DIESEL CRANE OPERATOR Work Phone: Start: 01-29-2021 Radex fingr minimum 2 views Danielle Car ELEMENTARY ELL TEACHER.DIESEL CRANE OPERATOR Work Phone: Start: 10-07-2019 Lipid 1996 panel - S roxanne or Plasma No Pcp ELEMENTARY ELL TEACHER Start: 11-01-2018 Adult depression screening assessment Alexx Segura MD Work Phone: Start: 01-28-2012 Mammography Slick Segura MD Work Phone: Plan of Treatment Date Care Activity Detail Author Start: 12-30-2028 Urine microalbumin profile [facility] Start: 10-06-2024 Lipid 1996 panel - S roxanne or Plasma Lipid Screening [facility] Start: 10-06-2024 Lip[address] Lipid Screening [facility] Start: 10-06-2024 LIPID SCREEN LIPID SCREEN [facility] Start: 11-08-2023 Covid-19 Vaccine ( season) Covid-19 Vaccine ( season) [facility] Start: 11-08-2023 Covid-19 Vaccine ( season) Covid-19 Vaccine ( season) [facility] Start: 11-08-2023 Influenza vaccination [facility] Start: 06-01-2023 Screening for malign ant neoplasm of lung Lung Cancer Screening [facility] Start: 06-01-2023 Shingrix Vaccine (1 of 2) Shingrix Vaccine (1 of 2) [facility] Start: 03-09-2023 Behavioral Health Screening Behavioral Health Screening [facility] Start: 11-07-2022 Covid-19 Vaccine ( season) Covid-19 Vaccine ( season) [facility] Start: 11-07-2022 Influenza vaccination Influenza Vacc ine (#1) [facility] Start: 03-09-2022 DEPRESSION ASSESSMENT DEPRESSION ASS ESSMENT [facility] Start: 11-07-2021 Influenza vaccination [facility] Start: 11-05-2021 DIABETES SCREEN DIABETES SCREEN [facility] Start: 11-05-2021 Diabetes Screening Diabetes Screenin g [facility] Start: 10-06-2020 ANNUAL PCP TEAM REVENUE ACCOUNTANT AMANDA DISEASE VISIT ANNUAL PCP TEAM CHRONIC DISEASE VISIT [facility] Start: 12-31-2019 PNEUMOCOCCAL (2 - PCV) PNEUMOCOCCAL (2 - PCV) [facility] Start: 12-31-2019 Pneumococcal vaccination [facility] Start: 11-02-2019 Adult depression screening assessment DEPRESSION SCREENING [facility] Start: 2018 COLOGUARD (FIT-DNA) COLOGUARD (FIT-D NA) [facility] Start: 2018 Colonoscopy COLONOSCOPY [facility] Start: 2018 COLORECTAL CANCER SCREENING COLORECTAL CANCER SCREENING [facility] Start: [address] COLONOGRAPHY [facility] Start: 2018 FECAL OCCULT BLOOD FECAL OCCULT BLOO D [facility] Start: 2018 Screening for malign ant neoplasm of colon [facility] Start: 2018 SIGMOIDOSCOPY SIGMOIDOSCOPY [facility] Start: 01-27-2017 HPV TESTING HPV TESTING [facility] Start: 01-27-2017 PAP TESTING PAP TESTING [facility] Start: 01-27-2017 Screening for malign ant neoplasm of cervix [facility] Start: 2013 Mammography [facility] Start: 2013 Screening for malign ant neoplasm of breast Mammogram Screening [facility] Start: 1992 Hepatitis B Vaccine (1 of 3 - 19+ 3-dose series) Hepatitis B Vaccine (1 of 3 - 19+ 3-dose series) [facility] Start: 06-01-1991 Anxiety Screening Anxiety Screening [facility] Start: 06-01-1991 Depression Screening Depression Scre ening [facility] Start: 06-01-1991 HEPATITIS C SCREENING HEPATITIS C [facility] Start: 06-01-1991 Hepatitis C screening Hepatitis C [facility] Start: 06-01-1991 HIV SCREENING HIV SCREENING [facility] Start: 06-01-1991 HIV screening HIV Screening [facility] Start: 1978 COVID-19 VACCINE (#1) COVID-19 VACCI NE (#1) [facility] Start: 1973 COVID-19 VACCINE (#1) COVID-19 VACCI NE (#1) [facility] Start: 1973 HEPATITIS B (1 of 3 - 3-dose series) HEPATITIS B (1 of 3 - 3-dose series) [facility] Start: 1975 Hepatitis B Vaccine (1 of 3 - 3-dose series) Hepatitis B Vaccine (1 of 3 - 3-dose series) [facility] End: 10-04-2022 Screening mammography bi 2-view breast inc cad [facility] SCREENING Radiology Routine Encounter for screening mammogram for breast cancer 1 Occurrences starting 09/04/2021 until 10/04/2022 [facility] Work Phone: Comment on above: 1 Occurrences starti ng 09/04/2021 until 10/04/2022 Immunizations Immunization Date Immunization Notes Care Provider Fa cili 12-30-2018 pneumococcal polysaccharide vaccine, 23 valent Alexx Segura MD Work Phone: [facility] 12-30-2018 tetanus toxoid, redu omar diphtheria toxoid, and acellular pertussis vaccine, adsorbed Alexx Segura MD Work Phone: [facility] 08-05-2013 tetanus toxoid, redu omar diphtheria toxoid, and acellular pertussis vaccine, adsorbed Alexx Segura MD Work Phone: [facility] Payers Date Payer Category Payer Unknown [id number] 2023 Self-pay 2018 Unknown MMO MMO [employer] [id number] 2018-Present [phone] [address] [place] [address] PPO [id number] 2018 Unknown [id number] 2018 Unknown [id number] 1975 Unknown [id number] 1975 Unknown [id number] 1975 Unknown [id number] Social History Date Type Detail Facility Start: 12-30-2018 End: 11-27-2021 Tobacco smoking status NHIS Smokes tobacco daily [facility] History of tobacco use Cigarette Smoker [facility] Start: 01-29-2021 End: 02-18-2021 Alcohol intake Current drinker of alcohol (finding) [facility] Start: 02-18-2021 History SDOH Alcohol Comment rarely, once a year [facility] Start: 1975 Sex Assigned At Not on file [facility] Start: 02-15-2020 End: 11-27-2021 Cigarettes smoked current (pack per day) - Reported 1 [facility] Start: 12-30-2018 End: 11-27-2021 Tobacco use and exposure Smokeless tobacco non-user [facility] Start: 12-30-2020 End: 11-27-2021 Exposure to SARS-CoV-2 (event) Not sure [facility] Work Phone: Start: 02-15-2020 End: 01-16-2023 Tobacco use panel [facility] Adult Depression Screening Assessment 0 [facility] Start: 12-30-[address] [facility] Functional Status Date Assessment Result Facility 12-01-2023 Functional Status Independent [facility] Mental Status Date Assessment Result Facility 12-01-2023 Mental Status Orientation Oriented x [facility] Clinical Notes 01-29-2021 to 12-25-2023 Telephone Encounter - Pau Briggs LPN - 08/13/2023 10:38 AM EDTTelephone Encounter - Pau Briggs LPN - 08/13/2023 10:38 AM EDTTelephone Encounter - Shane Lee RN - 08/13/2023 8:57 AM EDT Note Date & Type Note Facility 12-25-2023 Note ORIGINAL EXAMINATION: MRI OF THE THORACIC SPINE WITHOUT AND WITH CONTRAST 12/25/2023 2:58 pm TECHNIQUE: Multiplanar multisequence MRI of the thoracic spine was performed without and with the administration of intravenous contrast. COMPARISON: None HISTORY: ORDERING SYSTEM PROVIDED HISTORY: Reason for Exam: Muscle weakness (generalized) FINDINGS: BONES/ALIGNMENT: There is normal alignment of the spine. The vertebral body heights are maintained. The bone marrow signal appears unremarkable. SPINAL CORD: No abnormal cord signal is seen. No abnormal enhancement. SOFT TISSUES: No abnormal enhancement of the thoracic spine. No paraspinal mass identified. Scattered perineural cysts T3 on right, T7 on the lymph, T8 on the right, as well as further along the right nerve root within the intercostal space, T9 bilaterally, and T10 on the right. DEGENERATIVE CHANGES: No significant spinal canal stenosis or neural foraminal narrowing of the thoracic spine. IMPRESSION: 1. No significant spinal canal stenosis or neural foraminal narrowing. 2. No abnormal enhancement. 3. Scattered perineural cysts. Interpreted by: Terence Kaufman Preliminary Report By: Terence Kaufman Electronically signed By Terence Kaufman Dictated Date: 12/25/2023 4:13:29 PM Prelim Date: 12/25/2023 4:23:33 PM Sign Date: 12/25/2023 4:23:33 PM Ordering Provider: [facility] 12-25-2023 Note ORIGINAL EXAMINATION: MRI OF THE CERVICAL SPINE WITHOUT AND WITH CONTRAST 12/25/2023 2:58 pm: TECHNIQUE: Multiplanar multisequence MRI of the cervical spine was performed without and with the administration of intravenous contrast. COMPARISON: None. HISTORY: ORDERING SYSTEM PROVIDED HISTORY: Reason for Exam: Muscle weakness (generalized) FINDINGS: BONES/ALIGNMENT: There is normal alignment of the spine. The vertebral body heights are maintained. The bone marrow signal appears unremarkable. SPINAL CORD: No abnormal cord signal is seen. SOFT TISSUES: No abnormal enhancement of the cervical spine. No paraspinal mass identified. Cervical fat planes are preserved. Extracranial cerebrovascular flow voids are maintained. C2-C3: There is no significant disc protrusion, spinal canal stenosis or neural foraminal narrowing. C3-C4: There is no significant disc protrusion, spinal canal stenosis or neural foraminal narrowing. C4-C5: There is no significant disc protrusion, spinal canal stenosis or neural foraminal narrowing. C5-C6: Minimal central disc bulge without significant narrowing of the spinal canal. The neural foramina are patent bilaterally. C6-C7: There is no significant disc protrusion, spinal canal stenosis or neural foraminal narrowing. C7-T1: There is no significant disc protrusion, spinal canal stenosis or neural foraminal narrowing. IMPRESSION: 1. No acute osseous abnormality. 2. No abnormal cord signal or enhancement. 3. Minimal central disc bulge at C5-C6 without significant spinal canal or neural foraminal narrowing. Interpreted by: Terence Kaufman Preliminary Report By: Terence Kaufman Electronically signed By Terence Kaufman Dictated Date: 12/25/2023 4:23:44 PM Prelim Date: 12/25/2023 4:25:43 PM Sign Date: 12/25/2023 4:25:43 PM Ordering Provider: [facility] 12-01-2023 Hospital Discharg e instructions Patient Education 12/01/2023 21:04:38 Headache, Unspecified Headache, Unspecified A number of things can cause headaches. The cause of your headache isn t clear. But it doesn t seem to be a sign of any serious illness. Headache affects almost everyone at some time. It is the most common reason people miss days from work or school. You could have a tension headache or a migraine headache. Stress can cause a tension headache. This can happen if you tense the muscles of your shoulders, neck, and scalp without knowing it. If this stress lasts long enough, you may develop a tension headache. It is not clear why migraines occur, but certain things called triggers can raise the risk of having a migraine attack. Migraine triggers may include emotional stress or depression, or by hormone changes during the menstrual cycle. Other triggers include control pills and other medicines, alcohol or caffeine, foods with tyramine (such as aged cheese, wine), eyestrain, weather changes, missed meals, and lack of sleep or oversleeping. Other causes of headache include: Viral illness with high fever Head injury with concussion Sinus, ear, or throat infection Dental pain and jaw joint (TMJ) pain More serious but less common causes of headache include stroke, brain hemorrhage, brain tumor, meningitis, and encephalitis. Home care Follow these tips when taking care of yourself at home: Don t drive yourself home if you were given pain medicine for your headache. Instead, have someone else drive you home. Try to sleep when you get home. You should feel much better when you wake up. Apply heat to the back of your neck to ease a neck muscle spasm. Take care of a migraine headache by putting an ice pack on your forehead or at the base of your skull. If you have nausea or vomiting, eat a light diet until your headache eases. If you have a migraine headache, use sunglasses when in the daylight or around bright indoor lighting until your symptoms get better. Bright glaring light can make this type of headache worse. Follow-up care Follow up with your healthcare provider, or as advised. Talk with your provider if you have frequent headaches. He or she can help figure out a treatment plan. By knowing the earliest signs of headache, and starting treatment right away, you may be able to stop the pain yourself. When to seek medical advice Call your healthcare provider right away if any of these occur: Your head pain suddenly gets worse after sexual intercourse or strenuous activity Your head pain doesn t get better within 24 hours You aren t able to keep liquids down (repeated vomiting) Fever of 100.4 F (38 C) or higher, or as directed by your healthcare provider Stiff neck Extreme drowsiness, confusion, or fainting Dizziness or dizziness with spinning sensation (vertigo) Weakness in an arm or leg or one side of your face You have trouble talking or seeing [id number] The [employer]. [address] [place] [address]. All rights reserved. This information is not intended as a substitute for professional medical care. Always follow your healthcare professional's instructions. Follow Up Care 12/01/2023 19:22:21 With:SAVITA VALDEZ MD Address: [address] [place] [address]- When:2-4 days With:ANTONETTE DELGADO DO Address: [address] [place] [phone] When:2-4 days [facility] 12-01-2023 Note Discharge Instructions Thank you for allowing [facility] to assist you with your healthcare needs. The following is important discharge information regarding your hospital visit. What to Do Next Instructions from Your Care Team No qualifying data available. Post Acute Orders No qualifying data available. You Need to Schedule the Following Appointments Follow Up with SAVITA VALDEZ MD When:Within 2-4 days Where:[address] [facility] [place] [address]- Follow Up with ANTONETTE DELGADO DO When:Within 2-4 days Where:[address] [place] [phone] Allergies NKA Medications Please ask your primary doctor or pharmacist before taking any other medication not listed, including over the counter drugs, herbal medications, vitamins and or supplements as they may interact with your home medications. What How Much When Instructions Last Dose New APAP/ butalbital/ caffeine (Fioricet oral capsule - use generic Fioricet tablet) 1 cap by mouth Every 4 hours as needed for as needed Duration: 7 Days Printed Prescription Please take this list to your next doctor s visit. Bring all medications you take, including over the counter medications, herbals and other supplements with you to your doctor s visit. Patients and families are reminded to discard old lists and to update any records with all medication providers or retail pharmacies. Medication Leaflets acetaminophen, butalbital, and caffeine (a SEET a MIN oh fen, bue JORGE LUIS bi jorge luis, and MARIMAR een) Esgic, Fioricet, Zebutal What is the most important information I should know about acetaminophen, butalbital, and caffeine? Do not use this medcine if you have used an MAO inhibitor in the past 14 days. A dangerous drug interaction could occur. MAO inhibitors include isocarboxazid, linezolid, methylene blue injection, phenelzine, and tranylcypromine. Do not take more of this medication than is recommended. An overdose of acetaminophen can damage your liver or cause . Call your doctor at once if you have nausea, pain in your upper stomach, itching, loss of appetite, dark urine, valdez-colored stools, or jaundice (yellowing of your skin or eyes). In rare cases, acetaminophen may cause a severe skin reaction. Stop taking this medicine and call your doctor right away if you have skin redness or a rash that spreads and causes blistering and peeling. What is acetaminophen, butalbital, and caffeine? Acetaminophen is a pain reliever and fever book repairer. Butalbital is in a group of drugs called barbiturates. It relaxes muscle contractions involved in a tension headache. Caffeine is a central nervous system stimulant. It relaxes muscle contractions in blood vessels to improve blood flow. Acetaminophen, butalbital, and caffeine is a combination medicine used to treat tension headaches that are caused by muscle contractions. Acetaminophen, butalbital, and caffeine may also be used for purposes not listed in this medication guide. What should I discuss with my healthcare provider before taking acetaminophen, butalbital, and caffeine? Do not use this medicine if you have taken an MAO inhibitor in the past 14 days. A dangerous drug interaction could occur. MAO inhibitors include isocarboxazid, linezolid, phenelzine, rasagiline, selegiline, and tranylcypromine. You should not use acetaminophen, butalbital, and caffeine if you are allergic to it, if you have porphyria, or if you have recently used alcohol, sedatives, tranquilizers, or other opioids. Tell your doctor if you have ever had: liver disease, cirrhosis, a history of alcoholism or drug addiction, or if you drink more than 3 alcoholic beverages per day; kidney disease; stomach ulcer or bleeding; a history of skin rash caused by any medication; or a history of mental illness or suicidal thoughts. It is not known whether this medicine will harm an unborn baby. If you use butalbital while you are , your baby could become dependent on the drug. This can cause life-threatening withdrawal symptoms in the baby after it is born. Babies born dependent on habit-forming medicine may need medical treatment for several weeks. Tell your doctor if you are or plan to become . This medicine can pass into breast milk and may harm a nursing baby. Tell your doctor if you are a baby. Not approved for use by anyone younger than 12 years old. How should I take acetaminophen, butalbital, and caffeine? Follow all directions on your prescription label. Do not take more of this medication than recommended. An overdose can damage your liver or cause . Tell your doctor if the medicine seems to stop working as well in relieving your pain. Butalbital may be habit-forming. Never share this medicine with another person, especially someone with a history of drug abuse or addiction. Keep the medication in a place where others cannot get to it. Selling or giving away this medicine is against the law. Store at room temperature away from moisture and heat. Keep track of the amount of medicine used from each new bottle. Butalbital is a drug of abuse and you should be aware if anyone is using your medicine improperly or without a prescription. What happens if I miss a dose? Since this medicine is used when needed, you may not be on a dosing schedule. If you are on a schedule, use the missed dose as soon as you remember. Skip the missed dose if it is almost time for your next scheduled dose. Do not use extra medicine to make up the missed dose. What happens if I overdose? Seek emergency medical attention or call the Poison Help line at . An overdose of acetaminophen, butalbital, and caffeine can be fatal. The first signs of an acetaminophen overdose include loss of appetite, nausea, vomiting, stomach pain, sweating, and confusion or weakness. Later symptoms may include pain in your upper stomach, dark urine, and yellowing of your skin or the whites of your eyes. Overdose symptoms may also include insomnia, restlessness, tremor, diarrhea, increased shallow breathing, uneven heartbeats, seizure (convulsions), or fainting. What should I avoid while taking acetaminophen, butalbital, and caffeine? This medication can cause side effects that may impair your thinking or reactions. Be careful if you drive or do anything that requires you to be awake and alert. Avoid drinking alcohol. It may increase your risk of liver damage while taking acetaminophen. Ask a doctor or pharmacist before using any other cold, allergy, pain, or sleep medication. Acetaminophen (sometimes abbreviated as APAP) is contained in many combination medicines. Taking certain products together can cause you to get too much acetaminophen which can lead to a fatal overdose. Check the label to see if a medicine contains acetaminophen or APAP. While you are taking this medication, avoid taking diet pills, caffeine pills, or other stimulants (such as ADHD medications) without your doctor's advice. What are the possible side effects of acetaminophen, butalbital, and caffeine? Get emergency medical help if you have signs of an allergic reaction: hives; difficulty breathing; swelling of your face, lips, tongue, or throat. In rare cases, acetaminophen may cause a severe skin reaction that can be fatal. This could occur even if you have taken acetaminophen in the past and had no reaction. Stop taking this medicine and call your doctor right away if you have skin redness or a rash that spreads and causes blistering and peeling. If you have this type of reaction, you should never again take any medicine that contains acetaminophen. Stop using this medicine and call your doctor at once if you have: confusion, a seizure; shortness of breath; a light-headed feeling, like you might pass out; or nausea, upper stomach pain, itching, loss of appetite, dark urine, valdez-colored stools, jaundice (yellowing of the skin or eyes). Common side effects may include: drowsiness, dizziness; feeling light-headed; nausea, vomiting, stomach pain; drunk feeling; or shortness of breath. This is not a complete list of side effects and others may occur. Call your doctor for medical advice about side effects. You may report side effects to FDA at 4-589-AOJ-2943. What other drugs will affect acetaminophen, butalbital, and caffeine? Taking this medicine with other drugs that make you sleepy or slow your breathing can cause dangerous or life-threatening side effects. Ask your doctor before taking acetaminophen, butalbital, and caffeine with a sleeping pill, opioid pain medicine, muscle relaxer, or medicine for anxiety, depression, or seizures. Other drugs may affect acetaminophen, butalbital, and caffeine, including prescription and [id number] medicines, vitamins, and herbal products. Tell your doctor about all other medicines you use. Where can I get more information? Your doctor or pharmacist can provide more information about acetaminophen, butalbital, and caffeine. Remember, keep this and all other medicines out of the reach of children, never share your medicines with others, and use this medication only for the indication prescribed. Every effort has been made to ensure that the information provided by [employer]. ('[employer]') is accurate, up-to-date, and complete, but no guarantee is made to that effect. Drug information contained herein may be time sensitive. [employer] information has been compiled for use by healthcare practitioners and consumers in the [place] and therefore [employer] does not warrant that uses outside of the [place] are appropriate, unless specifically indicated otherwise. [employer] drug information does not endorse drugs, diagnose patients or recommend therapy. [employer] drug information is an informational resource designed to assist licensed healthcare practitioners in caring for their patients and/or to serve consumers viewing this service as a supplement to, and not a substitute for, the expertise, skill, knowledge and judgment of healthcare practitioners. The absence of a warning for a given drug or drug combination in no way should be construed to indicate that the drug or drug combination is safe, effective or appropriate for any given patient. [facility] does not assume any responsibility for any aspect of healthcare administered with the aid of information [facility] provides. The information contained herein is not intended to cover all possible uses, directions, precautions, warnings, drug interactions, allergic reactions, or adverse effects. If you have questions about the drugs you are taking, check with your doctor, nurse or pharmacist. Copyright 5741-4793 [facility] [employer]. Version: 8.01. Revision Date: 03/29/2021. Education Materials Headache, Unspecified A number of things can cause headaches. The cause of your headache isn t clear. But it doesn t seem to be a sign of any serious illness. Headache affects almost everyone at some time. It is the most common reason people miss days from work or school. You could have a tension headache or a migraine headache. Stress can cause a tension headache. This can happen if you tense the muscles of your shoulders, neck, and scalp without knowing it. If this stress lasts long enough, you may develop a tension headache. It is not clear why migraines occur, but certain things called triggers can raise the risk of having a migraine attack. Migraine triggers may include emotional stress or depression, or by hormone changes during the menstrual cycle. Other triggers include control pills and other medicines, alcohol or caffeine, foods with tyramine (such as aged cheese, wine), eyestrain, weather changes, missed meals, and lack of sleep or oversleeping. Other causes of headache include: Viral illness with high fever Head injury with concussion Sinus, ear, or throat infection Dental pain and jaw joint (TMJ) pain More serious but less common causes of headache include stroke, brain hemorrhage, brain tumor, meningitis, and encephalitis. Home care Follow these tips when taking care of yourself at home: Don t drive yourself home if you were given pain medicine for your headache. Instead, have someone else drive you home. Try to sleep when you get home. You should feel much better when you wake up. Apply heat to the back of your neck to ease a neck muscle spasm. Take care of a migraine headache by putting an ice pack on your forehead or at the base of your skull. If you have nausea or vomiting, eat a light diet until your headache eases. If you have a migraine headache, use sunglasses when in the daylight or around bright indoor lighting until your symptoms get better. Bright glaring light can make this type of headache worse. Follow-up care Follow up with your healthcare provider, or as advised. Talk with your provider if you have frequent headaches. He or she can help figure out a treatment plan. By knowing the earliest signs of headache, and starting treatment right away, you may be able to stop the pain yourself. When to seek medical advice Call your healthcare provider right away if any of these occur: Your head pain suddenly gets worse after sexual intercourse or strenuous activity Your head pain doesn t get better within 24 hours You aren t able to keep liquids down (repeated vomiting) Fever of 100.4 F (38 C) or higher, or as directed by your healthcare provider Stiff neck Extreme drowsiness, confusion, or fainting Dizziness or dizziness with spinning sensation (vertigo) Weakness in an arm or leg or one side of your face You have trouble talking or seeing [id number] The Clinical Data. [address] [place] [address]. All rights reserved. This information is not intended as a substitute for professional medical care. Always follow your healthcare professional's instructions. Additional Information VACCINATE! IT SAVES LIVES! Members of the community who have not yet received the COVID-19 vaccine and would like to receive it can visit one of [facility] vaccine clinics. There are many vaccine clinic locations within the [facility]. For locations and available times, please visit [email or web address] [email or web address] It is important to note that some COVID mobile vaccine clinics are held outdoors and may be canceled in rainy or stormy conditions. To learn more about pediatric vaccinations (ages 5-11), we invite you to visit the [facility] webpage. [email or web address].[email or web address].org/p ages/4111-Gcxgu-Jnbjdpxzhwx-Freq elcsrt-[email or web address]-Ywzyaievi.html To learn more about the COVID-19 vaccine, we invite you to visit the CDC website for a list of frequently asked questions. https://www.cdc.gov/coronavirus/ 2019-ncov/vaccines/faq.html [facility] Patient Portal Access Instructions: Stay connected with your healthcare team and access your personal medical information anytime with the [employer] Patient Portal. If you would like a full copy of your medical records please contact the [facility] Medical Records Department Thursday through Thursday between 8a.m. and 4:30p.m. Please follow the directions below to access the portal: 1.Access the email account you provided upon registration to the [facility].2.Look for an invitation email from [facility].3.Open the email and access the invitation link: Accept [facility] to [facility]4.Fill in the required oviedo to create your account. Sign into [email or web address] with your username and password that you created in the above steps to stay up to date. You can then view a summary of results, a summary of your visits, and the ability to download your summaries to your computer or send the information securely to a physician. Remember that your healthcare information is confidential, so carefully consider who you will allow to register on the [employer] Patient Portal for access to your information. You can also access the [facility] Patient Portal on the [employer] chris. Simply click on Health Records under Health Data and then click on the [employer] logo. HOW TO SAFELY DISPOSE OF PRESCRIPTION MEDICATIONS Please use one of the following methods to safely dispose of your unused medications. 1.Use a drug disposal kit: the drug disposal pouch allows you to safely discard your old and unused drugs. Ask your nurse to give you one when you are discharged.2.Visit a local take-back location: Many local pharmacies and police departments have programs that collect old and unwanted prescription drugs. Call your local pharmacy or go to http://bit.CSMG/2D7Ec5i to find one close to you.3.Make use of household items: Use cat litter or old coffee grounds to dispose medications if other options are not available. Mix your drugs with these household products, seal them in an airtight container and throw it into the garbage. Call [facility]: [phone] to be sure your drugs can be disposed of in this way. Some medicines may require a different approach.4.Never flush your medications down the toilet. IF YOU HAVE BEEN PRESCRIBED AN OPIOIDS FOR PAIN If you have been prescribed an opioid (such as hydrocodone, oxycodone or morphine), it is critical to understand the possible side effects and risks of opioid pain medications. Even when taken as directed, opioids can have several side effects including: Tolerance, meaning you might need to take more of a medication for the same pain relief. Nausea, vomiting and/or constipation. Sleepiness, dizziness, dry mouth, confusion, depression or itching. Physical dependence, meaning you have withdrawal symptoms when a medication is stopped ? this can develop within a few days. KNOW YOUR RESPONSIBILITIES It is important to know exactly how much and how often to take the opioid pain medications you are prescribed. Never take opioids in higher amounts or more often than prescribed. Do not combine opioids with alcohol or other drugs that cause drowsiness, such as benzodiazepines, also known as benzos, including diazepam and alprazolam, muscle relaxants or sleep aids. Never sell or share prescription opioids. This is illegal. Store opioids in a secure place and out of reach of others (including children, family, friends and visitors). The last page(s) of this document has been signed and retained as a CHART COPY Signatures Patient Education Materials Headache, Unspecified Medication Leaflets acetaminophen, butalbital, and caffeine My discharge plan and instructions have been reviewed and explained to me and I,LADARIUS FIGUEROA understand my current condition and have read and understand these discharge instructions. I have received a written copy of the plan/instructions. If I have questions, I am aware that I should contact my doctor. 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 Phone call placed to [place] spoke to nurse advised of scheduling process (referral to Neurosurgery our office would need MRI testing results) none sent with original referral. [place] will fax requested document then office will reach out to patient to initiate scheduling. Pau Briggs LPN [facility] 08-13-2023 Miscellaneous Notes Referral received by fax in two parts on referral page, second contained office visit (patient was new to [place] for Emergency Room follow up) not seen prior. Phone call placed to [place] spoke to nurse advised of scheduling process (referral to Neurosurgery our office would need MRI testing results) none sent with original referral. [place] will fax requested document then office will reach out to patient to initiate scheduling. Pau Briggs LPN [facility] phoned asking if neurology dept received a referral from them for this patient. They faxed one on 07-10-23 and 08-12-23. Verified correct fax number. Dx: neuralgia, benign neoplasm. They also faxed a referral to neuro surgeon. Asking office let them know if you received the referral. documented in this encounter [facility] 08-13-2023 Telephone encounter Note [facility] phoned asking if neurology dept received a referral from them for this patient. They faxed one on 07-10-23 and 08-12-23. Verified correct fax number. Dx: neuralgia, benign neoplasm. They also faxed a referral to neuro surgeon. Asking office let them know if you received the referral. [facility] 08-04-2023 Note HNO ID: [id number] Author: BILLY GOMES PA Service: ? Author Type: Physician Escrow Agent Type: Progress Notes Filed: 08/04/2023 10:44 Note Text: 48-year-old female presents for lightheadedness and dizziness. Patient states she was seen at the ER Thursday and had an MRI revealing meningioma. She states that she was referred to neurology, but unable to get an appointment for 1 year. She does have an appointment with the PCP on Thursday. Patient states that she is still feeling dizzy and lightheaded. She states that the ER did not prescribe her anything for this. At this time, I discussed limitations of express care. Patient really does need close follow-up with neurology. Advised her that if she is symptomatic having lightheadedness and dizziness, needs to be evaluated in the emergency room. She understands. Did offer to schedule an appointment with [facility] PCP to establish care, but patient does not want to travel. She will keep her appointment with Yolyn PCP Thursday and go to ER now for evaluation of her dizziness. [facility] 08-04-2023 History of Presen t illness Narrative 48-year-old female presents for lightheadedness and dizziness. Patient states she was seen at the ER Thursday and had an MRI revealing meningioma. She states that she was referred to neurology, but unable to get an appointment for 1 year. She does have an appointment with the PCP on Thursday. Patient states that she is still feeling dizzy and lightheaded. She states that the ER did not prescribe her anything for this. At this time, I discussed limitations of express care. Patient really does need close follow-up with neurology. Advised her that if she is symptomatic having lightheadedness and dizziness, needs to be evaluated in the emergency room. She understands. Did offer to schedule an appointment with [facility] PCP to establish care, but patient does not want to travel. She will keep her appointment with Thanh PCP Thursday and go to ER now for evaluation of her dizziness. documented in this encounter [facility] 02-11-2023 Note HNO ID: [id number] Author: Radha Glodman Service: ? Author Type: ? Type: Progress Notes Filed: 02/11/2023 2:34 PM Note Text: POPULATION HEALTH NAVIGATION OUTREACH Action/FYI RP OUTREACH: Contacted patient to schedule [facility] Consult unable to leave voicemail. Patient Identified by Name and : NO Outreach Outcome/Action Unable to reach patient: Phone number not valid / voicemail full Did you use a PCP flex slot to schedule this appointment? No Reason for Outreach Care Gap or Scheduling/Wellness visits Payer: Payor: MMO / Plan: MMO SUPERMED PPO / Product Type: PPO / Care Gap Reviewed:: N/A Reminder: Reminder note to check Health Maintenance for items below Health Maintenance items due: Hepatitis B Vaccine(1 of 3 - 3-dose series) Never done Covid-19 Vaccine(1) Never done Hepatitis C Screening Never done HIV Screening Never done Mammogram Screening due on 2013 Pap Testing due on 01/27/2017 HPV Testing due on 01/27/2017 Colorectal Cancer Screening Never done Pneumococcal Vaccine(2 - PCV) due on 12/31/2019 Annual PCP Team Chronic Disease Visit due on 10/06/2020 Diabetes Screening due on 11/05/2021 Depression Assessment Never done Influenza Vaccine(1) Never done Navigation Signature: Radha Goldman February 11, 2023 2:34 PM [facility] 02-11-2023 History of Presen t illness Narrative POPULATION HEALTH NAVIGATION OUTREACH Action/FYI RP OUTREACH: Contacted patient to schedule [facility] Consult unable to leave voicemail. Patient Identified by Name and : NO Outreach Outcome/Action Unable to reach patient: Phone number not valid / voicemail full Did you use a PCP flex slot to schedule this appointment? No Reason for Outreach Care Gap or Scheduling/Wellness visits Payer: Payor: MMO / Plan: MMO SUPERMED PPO / Product Type: PPO / Care Gap Reviewed:: N/A Reminder: Reminder note to check Health Maintenance for items below Health Maintenance items due: Hepatitis B Vaccine(1 of 3 - 3-dose series) Never done Covid-19 Vaccine(1) Never done Hepatitis C Screening Never done HIV Screening Never done Mammogram Screening due on 2013 Pap Testing due on 01/27/2017 HPV Testing due on 01/27/2017 Colorectal Cancer Screening Never done Pneumococcal Vaccine(2 - PCV) due on 12/31/2019 Annual PCP Team Chronic Disease Visit due on 10/06/2020 Diabetes Screening due on 11/05/2021 Depression Assessment Never done Influenza Vaccine(1) Never done Navigation Signature: Radha Goldman February 11, 2023 2:34 PM documented in this encounter [facility] 02-11-2023 Note Patient Outreach ([place] TNAV) LADARIUS FIGUEROA ([id number]) 1975 F Date Time Provider Department 02/11/23 NO PCP NETNAV During your visit today, we recorded the following information about you: Radha Goldman 02/11/2023 2:34 PM Signed POPULATION HEALTH NAVIGATION OUTREACH Action/[facility] RP OUTREACH: Contacted patient to schedule [facility] Consult unable to leave voicemail. Patient Identified by Name and : NO Outreach Outcome/Action Unable to reach patient: Phone number not valid / voicemail full Did you use a PCP flex slot to schedule this appointment? No Reason for Outreach Care Gap or Scheduling/Wellness visits Payer: Payor: MMO / Plan: MMO SUPERMED PPO / Product Type: PPO / Care Gap Reviewed:: N/A Reminder: Reminder note to check Health Maintenance for items below Health Maintenance items due: Hepatitis B Vaccine(1 of 3 - 3-dose series) Never done Covid-19 Vaccine(1) Never done Hepatitis C Screening Never done HIV Screening Never done Mammogram Screening due on 2013 Pap Testing due on 01/27/2017 HPV Testing due on 01/27/2017 Colorectal Cancer Screening Never done Pneumococcal Vaccine(2 - PCV) due on 12/31/2019 Annual PCP Team Chronic Disease Visit due on 10/06/2020 Diabetes Screening due on 11/05/2021 Depression Assessment Never done Influenza Vaccine(1) Never done Navigation Signature: Radha Goldman February 11, 2023 2:34 PM Allergies As of Date: 02/11/2023 (No Known Allergies) Date Reviewed: 01/16/2023 Reviewed by: Deepti Hernandez APRN.DIESEL CRANE OPERATOR - Fully Assessed Prescriptions as of 02/11/2023 - PHENYLephrine-Acetaminophen (TYLENOL SINUS HEADACHE) 5-325 mg tab Take 2 tablets by mouth as needed. - DULoxetine (CYMBALTA) 30 mg capsule Take 1 capsule by mouth once daily. Problem List As Of Date 02/11/2023 Noted Resolved Irregular periods [N92.6] 01/07/2012 Subclinical hypothyroidism [E03.8] Vitamin D insufficiency [E55.9] Tobacco use [Z72.0] Hypertriglyceridemia [E78.1] Encounter Status:Closed by RADHA GOLDMAN on 02/11/23 [facility] 02-06-2023 Note HNO ID: [id number] Author: Radha Goldman Service: ? Author Type: ? Type: Progress Notes Filed: 02/06/2023 12:33 PM Note Text: POPULATION HEALTH NAVIGATION OUTREACH Action/FYI RP OUTREACH: Contacted patient to schedule [facility] Consult unable to leave voicemail. Patient Identified by Name and : NO Outreach Outcome/Action Unable to reach patient: Left message Did you use a PCP flex slot to schedule this appointment? No Reason for Outreach Care Gap or Scheduling/Wellness visits Payer: Payor: MMO / Plan: MMO SUPERMED PPO / Product Type: PPO / Care Gap Reviewed:: N/A Reminder: Reminder note to check Health Maintenance for items below Health Maintenance items due: Hepatitis B Vaccine(1 of 3 - 3-dose series) Never done Covid-19 Vaccine(1) Never done Hepatitis C Screening Never done HIV Screening Never done Mammogram Screening due on 2013 Pap Testing due on 01/27/2017 HPV Testing due on 01/27/2017 Colorectal Cancer Screening Never done Pneumococcal Vaccine(2 - PCV) due on 12/31/2019 Annual PCP Team Chronic Disease Visit due on 10/06/2020 Diabetes Screening due on 11/05/2021 Depression Assessment Never done Influenza Vaccine(1) Never done Navigation Signature: Radha Goldman February 06, 2023 12:33 PM [facility] 02-06-2023 History of Presen t illness Narrative POPULATION HEALTH NAVIGATION OUTREACH Action/FYI RP OUTREACH: Contacted patient to schedule [facility] Consult unable to leave voicemail. Patient Identified by Name and : NO Outreach Outcome/Action Unable to reach patient: Left message Did you use a PCP flex slot to schedule this appointment? No Reason for Outreach Care Gap or Scheduling/Wellness visits Payer: Payor: MMO / Plan: MMO GoingOn PPO / Product Type: PPO / Care Gap Reviewed:: N/A Reminder: Reminder note to check Health Maintenance for items below Health Maintenance items due: Hepatitis B Vaccine(1 of 3 - 3-dose series) Never done Covid-19 Vaccine(1) Never done Hepatitis C Screening Never done HIV Screening Never done Mammogram Screening due on 2013 Pap Testing due on 01/27/2017 HPV Testing due on 01/27/2017 Colorectal Cancer Screening Never done Pneumococcal Vaccine(2 - PCV) due on 12/31/2019 Annual PCP Team Chronic Disease Visit due on 10/06/2020 Diabetes Screening due on 11/05/2021 Depression Assessment Never done Influenza Vaccine(1) Never done Navigation Signature: Radha Goldman February 06, 2023 12:33 PM documented in this encounter [facility] 02-06-2023 Note Patient Outreach ([place] TNAV) LADARIUS FIGUEROA ([id number]) 1975 F Date Time Provider Department 02/06/23 NO PCP NETNAV During your visit today, we recorded the following information about you: Radha Goldman 02/06/2023 12:33 PM Signed POPULATION HEALTH NAVIGATION OUTREACH Action/FYI RP OUTREACH: Contacted patient to schedule [facility] Consult unable to leave voicemail. Patient Identified by Name and : NO Outreach Outcome/Action Unable to reach patient: Left message Did you use a PCP flex slot to schedule this appointment? No Reason for Outreach Care Gap or Scheduling/Wellness visits Payer: Payor: MMO / Plan: MMO SUPERMED PPO / Product Type: PPO / Care Gap Reviewed:: N/A Reminder: Reminder note to check Health Maintenance for items below Health Maintenance items due: Hepatitis B Vaccine(1 of 3 - 3-dose series) Never done Covid-19 Vaccine(1) Never done Hepatitis C Screening Never done HIV Screening Never done Mammogram Screening due on 2013 Pap Testing due on 01/27/2017 HPV Testing due on 01/27/2017 Colorectal Cancer Screening Never done Pneumococcal Vaccine(2 - PCV) due on 12/31/2019 Annual PCP Team Chronic Disease Visit due on 10/06/2020 Diabetes Screening due on 11/05/2021 Depression Assessment Never done Influenza Vaccine(1) Never done Navigation Signature: Radha Goldman February 06, 2023 12:33 PM Allergies As of Date: 02/06/2023 (No Known Allergies) Date Reviewed: 01/16/2023 Reviewed by: Deepti Hernandez APRN.DIESEL CRANE OPERATOR - Fully Assessed Prescriptions as of 02/06/2023 - PHENYLephrine-Acetaminophen (TYLENOL SINUS HEADACHE) 5-325 mg tab Take 2 tablets by mouth as needed. - DULoxetine (CYMBALTA) 30 mg capsule Take 1 capsule by mouth once daily. Problem List As Of Date 02/06/2023 Noted Resolved Irregular periods [N92.6] 01/07/2012 Subclinical hypothyroidism [E03.8] Vitamin D insufficiency [E55.9] Tobacco use [Z72.0] Hypertriglyceridemia [E78.1] Encounter Status:Closed by RADHA GOLDMAN on 02/06/23 [facility] 01-16-2023 History of Presen t illness Narrative Radiology Service Progress Note PATIENT NAME: Ladarius Figueroa DATE OF SERVICE: January 16, 2023 TIME: 10:55 AM PATIENT IDENTITY VERIFICATION COMPLETED USING TWO (2) IDENTIFIERS: Name and Date of confirmed by patient verbally. FALL SCREENING: Has the patient had 2 falls in the last year or 1 fall with injury or currently using an Ambulatory Assistive Device (Walker, Cane, Wheelchair, Crutches, etc.)? No PATIENT GENDER DATA: Female. status: : No status: NO. PATIENT RELEVANT IMPLANT DATA REVIEWED: Yes RADIOLOGY DEPARTMENT: General X-ray: Exam(s) Completed: Rib X-Ray: Right PERIPHERAL IV DATA: Not applicable SIGNED BY: RT Edvin(R) January 16, 2023 10:55 AM documented in this encounter [facility] 01-16-2023 Note HNO ID: [id number] Author: Lisy Fuentes RT(Caesar) Service: Radiology Author Type: Technologist Type: Progress Notes Filed: 01/16/2023 11:08 AM Note Text: Radiology Service Progress Note PATIENT NAME: Ladarius Figueroa DATE OF SERVICE: January 16, 2023 TIME: 10:55 AM PATIENT IDENTITY VERIFICATION COMPLETED USING TWO (2) IDENTIFIERS: Name and Date of confirmed by patient verbally. FALL SCREENING: Has the patient had 2 falls in the last year or 1 fall with injury or currently using an Ambulatory Assistive Device (Walker, Cane, Wheelchair, Crutches, etc.)? No PATIENT GENDER DATA: Female. status: : No status: NO. PATIENT RELEVANT IMPLANT DATA REVIEWED: Yes RADIOLOGY DEPARTMENT: General X-ray: Exam(s) Completed: Rib X-Ray: Right PERIPHERAL IV DATA: Not applicable SIGNED BY: RT Edvin(Caesar) January 16, 2023 10:55 AM [facility] 01-16-2023 Note HNO ID: [id number] Author: Deepti Hernandez APRN.DIESEL CRANE OPERATOR Service: ? Author Type: Nurse Practitioner Type: Progress Notes Filed: 01/16/2023 11:23 AM Note Text: Subjective The history is provided by the patient. No language translator was used. HPI Ladarius Figueroa is a 47 year old female who presents today for CC of left knee pain this started 2 months ago. She denies any known injury or trauma. She occasionally uses tylenol or ibuprofen. Social History Tobacco Use Smoking status: Every Day Packs/day: 1.00 Years: 30.00 Additional pack years: 0.00 Total pack years: 30.00 Types: Cigarettes Smokeless tobacco: Never Substance Use Topics Alcohol use: Yes Comment: rarely, once a year Drug use: No PAST MEDICAL HISTORY Diagnosis Date Hypertriglyceridemia Myalgia Obesity (BMI 30-39.9) Subclinical hypothyroidism Tobacco use Vitamin D insufficiency I have confirmed and edited as necessary, the [facility] Review of Systems Constitutional: Negative for chills and fever. Musculoskeletal: Positive for joint pain (knee). Negative for myalgias. Skin: Negative for itching and rash. All other systems reviewed and are negative. Objective Physical Exam Vitals and nursing note reviewed. Pulmonary: Effort: Pulmonary effort is normal. Musculoskeletal: Right knee: Normal. Left knee: Crepitus present. No swelling, deformity, effusion, erythema, ecchymosis, lacerations or bony tenderness. Normal range of motion. Tenderness present over the medial joint line and MCL. No LCL laxity, MCL laxity, ACL laxity or PCL laxity.Normal alignment, normal meniscus and normal patellar mobility. Normal pulse. Instability Tests: Anterior drawer test negative. Posterior drawer test negative. Anterior Jonnie test negative. Medial Ephraim test negative and lateral Ephraim test negative. Skin: General: Skin is warm and dry. Neurological: Mental Status: She is alert and oriented to person, place, and time. Psychiatric: Mood and Affect: Affect normal. ASSESSMENT/PLAN: 1. Acute pain of left knee - ICD9: 719.46, ICD10: M25.562 Possible strain Ibuprofen as discussed for 10-14 days Tylenol prn Behzad wrap, knee sleeve If no improvement follow up with ortho for further evaluation - XR KNEE GENERAL 4V AP BOTH/PA BOTH/LAT/MERC LEFT FINDINGS: No acute fractures or subluxations are noted. Bony fragmentation seen along the tibial tubercle, likely chronic. The joint spaces are maintained, without obvious osteophyte formation. There is no evidence of joint effusion. The mineralization of the bones is normal. There is no significant soft tissue swelling. IMPRESSION: No acute radiographic abnormalities seen in the left knee. Interpreted by : DAVID MEZA MD Diagnosis and treatment plan were discussed and questions were answered to the patient's satisfaction. Pt acknowledged understanding of concepts and follow up plan. Specific signs and symptoms that would indicate the need for higher level of care were discussed in detail warranting prompt ER evaluation. Deepti Hernandez APRN.[facility] 05-19-2022 History of Presen t illness Narrative 05/19/2022 Patient presents with: Head Congestion: Bilateral ears clogged, sinus VILLEGAS and pressure, cough, ST x1 week SUBJECTIVE: This is a 46 year old that is here today for Complaint(s) of head congestion and drainage x 10 days. + sinus pain and pressure, mostly in the forehead. Started with sore throat, overall slightly improved. + sinus pressure. Having some nasal drainage. Using nasal spray OTC-saline. Both ears feel clogged and full. Intermittent pain in the ears. Having a cough associated. Denies fever/chills, SOB, wheezing, vomiting, diarrhea. PAST MEDICAL HISTORY Diagnosis Date Hypertriglyceridemia Myalgia Obesity (BMI 30-39.9) Subclinical hypothyroidism Tobacco use Vitamin D insufficiency ALLERGIES Patient has no known allergies. MEDICATIONS Current Outpatient Medications Medication Sig PHENYLephrine-Acetaminophen (TYLENOL SINUS HEADACHE) 5-325 mg tab Take 2 tablets by mouth as needed. (Patient not taking: Reported on 11/27/2021) DULoxetine (CYMBALTA) 30 mg capsule Take 1 capsule by mouth once daily. (Patient not taking: Reported on 02/18/2021 ) No current facility-administered medications for this visit. SOCIAL HISTORY Social History Tobacco Use Smoking status: Every Day Packs/day: 1.00 Years: 30.00 Pack years: 30.00 Types: Cigarettes Smokeless tobacco: Never Substance Use Topics Alcohol use: Yes Comment: rarely, once a year Drug use: No REVIEW OF SYSTEMS See HPI OBJECTIVE: BP 110/76 Pulse 80 Temp 36.7 C (98 F) Resp 18 Wt 91.6 kg (202 lb) LMP 01/09/2012 SpO2 99% BMI 35.78 kg/m APPEARANCE alert, in no acute distress, well-hydrated, well nourished. EYES PERRLA, conjunctiva and sclera normal. EARS External ears normal, canals clear. TMs normal DEBORA NOSE/SINUS Nares normal. Septum midline. Mucosa normal. No drainage. + DEBORA frontal sinus tenderness, and mild maxillary sinus tenderness. THROAT normal, no erythema NECK Supple, No cervical adenopathy; HEART RRR with normal S1 and S2, LUNG clear to auscultation, No wheezing, rhonchi, rales. ASSESSMENT/PLAN: 1. Acute frontal sinusitis, recurrence not specified - ICD9: 461.1, ICD10: J01.10 - The patient should also be given behind the counter Pseudoephedrine, warm salt water gargles, throat lozenges and/or OTC throat spray as needed, and nasal saline gtts and suction prn for the first 5-7 days of treatment. - Supportive care with plenty of fluids, rest, and analgesia prn. - Follow up in 3-5 days if symptoms persist or worsen. - AMOXICILLIN 875 MG-POTASSIUM CLAVULANATE 125 MG TABLET Antibiotic printed if not improving gin 3-5 days. Discussed possible viral etiology with patient. Reviewed red flags and when to seek care sooner. The patient indicates understanding of these issues and agrees with the plan. Tasha Souza PA-C documented in this encounter [facility] 11-27-2021 History of Presen t illness Narrative CC: Patient presents with: Ear Pain: Right ear pain x 2 days HPI: Ladarius Figueroa is a 46 year old female who presents to the office with complaint of ear symptoms for a few days. Symptoms are worsening Associated symptoms includes nasal congestion for about a week. Denies ear pain. Treatments tried include nothing so far. with no relief of symptoms. Sick contacts: unknown. History of asthma, frequent episodes of bronchitis, chronic bronchitis, bronchiectasis or COPD: No Smoker: No Seasonal/environmental allergies: No The ROS is otherwise negative. The patient's pmh, medications, allergies, and past visits are reviewed. PHYSICAL EXAM: BP 140/80 Pulse 74 Temp 36.1 C (96.9 F) Resp 21 Wt 91.8 kg (202 lb 6.4 oz) LMP 01/09/2012 SpO2 99% BMI 35.85 kg/m General appearance: alert, cooperative, pleasant, in no acute distress Head: Normocephalic Eyes: EOM's intact, conjunctiva pink and moist, no icterus, sclera white, non-injected Ears: Right ear: External ear/canal- Normal, TM - erythematous, bulging. Left ear: External ear/canal- Normal, TM - clear with good landmarks Oropharynx:moist without lesions, No erythema, exudates or tonsillar hypertrophy. Heart: Negative. RRR without obvious murmur, gallop, or rubs. No ectopy. Lungs: clear to auscultation, without rales or wheeze, good air exchange PAST MEDICAL HISTORY Diagnosis Date Hypertriglyceridemia Myalgia Obesity (BMI 30-39.9) Subclinical hypothyroidism Tobacco use Vitamin D insufficiency PAST SURGICAL HISTORY Procedure Laterality Date CARPAL TUNNEL Right 12/2017 DELIVERY ONLY x1 CHOLECYSTECTOMY age 20 LIGATE FALLOPIAN TUBE ALLERGIES Patient has no known allergies. MEDICATIONS amoxicillin (AMOXIL) 875 mg tablet Take 1 tablet by mouth twice daily for 7 days. PHENYLephrine-Acetaminophen (TYLENOL SINUS HEADACHE) 5-325 mg tab Take 2 tablets by mouth as needed. (Patient not taking: Reported on 11/27/2021) DULoxetine (CYMBALTA) 30 mg capsule Take 1 capsule by mouth once daily. (Patient not taking: Reported on 02/18/2021 ) FAMILY HISTORY Problem Relation Age of Onset None Other Diabetes Mother Heart disease Father Kidney Disease Father Heart disease Maternal Grandmother Leukemia Maternal Grandfather Heart disease Paternal Grandmother Heart disease Paternal Grandfather Social History Tobacco Use Smoking status: Every Day Packs/day: 1.00 Years: 30.00 Pack years: 30.00 Types: Cigarettes Smokeless tobacco: Never Substance Use Topics Alcohol use: Yes Comment: rarely, once a year Drug use: No ASSESSMENT/PLAN: 1. Acute otitis media, right - ICD9: 382.9, ICD10: H66.91 amoxicillin twice a day for 7 days. Prescription instructions reviewed with patient as applicable. Potential red flag symptoms discussed with the patient. Reviewed appropriate action plan to take if red flag symptoms occur. Patient agreeable to treatment plan. Latrice Lutz APRN.DERIAN documented in this encounter [facility] 01-29-2021 History of Presen t illness Narrative Radiology Service Progress Note PATIENT NAME: Ladarius Figueroa DATE OF SERVICE: January 29, 2021 TIME: 11:21 AM PATIENT IDENTITY VERIFICATION COMPLETED USING TWO (2) IDENTIFIERS: Name and Date of confirmed by patient verbally. FALL SCREENING: Has the patient had 2 falls in the last year or 1 fall with injury or currently using an Ambulatory Assistive Device (Walker, Cane, Wheelchair, Crutches, etc.)? No PATIENT GENDER DATA: Female. status: : No status: NO. PATIENT RELEVANT IMPLANT DATA REVIEWED: Not Applicable RADIOLOGY DEPARTMENT: General X-ray: Exam(s) Completed: Chest X-Ray PERIPHERAL IV DATA: Not applicable SIGNED BY: RT Saul(R) January 29, 2021 11:21 AM documented in this encounter [facility] Evaluation + Plan note No data available for this section [facility] Evaluation + Plan note Future Appointments Appointment Date:12/28/2023 02:00:00 PM Scheduled Provider: Location:[facility] Appointment Type:MRI Spine Lumbar w/ + w/o Contrast Future Scheduled TestsMRI Spine Lumbar w/ + w/o Contrast 12/28/23 [facility] Evaluation note Diagnosis Encounter for screening mammogram for breast cancer [facility] Diagnosis Acute otitis media, right- Primary Unspecified otitis media [facility] Diagnosis Acute frontal sinusitis, recurrence not specified- Primary documented in this encounter [facility]* Diagnosis Dizziness- Primary Dizziness and giddiness documented in this encounter [facility]* Diagnosis Acute pain of left knee documented in this encounter [facility] note* Diagnosis Pain of right thumb Pain in limb [facility] No data available for this section [facility] Progress note No data available for this section [facility] Reason for referral (narrative)* Diagnostic Procedure Only (Routine) - Pending Review Specialty Diagnoses / Procedures Referred By Contac t Referred To Contact BR IMAGING Diagnoses Encounter for screening mammogram for breast cancer Procedures KIA SCREENING SCREENING MAMMOGRAPHY BI 2-VIEW BREAST INC CAD Alexx Segura MD [address] [place] [address] [facility] Imaging [address] [place] [address] Referral ID Status Reason Start Date Expiration Date Visits Requested Visits Authorized [id number] Pending Review Auto-Generat ed Referral 09/04/2021 10/04/2022 1 1 [facility] for referral (narrative)* Diagnostic Procedure Only (Urgent) - Closed Specialty Diagnoses / [facility] To Contact XR IM[facility] Diagnoses Acute pain of left knee Procedures XR KNEE GENERAL 4V AP BOTH/PA BOTH/LAT/MERC LEFT RADIOLOGIC EXAM KNEE COMPLETE 4/MORE VIEWS Deepti Hernandez, ELEMENTARY ELL TEACHER.DIESEL CRANE OPERATOR [address] [place] [address] [place] [address] Referral ID Status Reason Start Date Expiration Date V isits Requested Visits Authorized [id number] Closed Auto-Generate d Referral 01/16/2023 02/15/2024 1 1 [facility] for referral (narrative)* Diagnostic Procedure Only (Urgent) - Closed Specialty Diagnoses / [facility] Referred To Contact XR IMAGING Diagnoses Pain of right thumb Procedures XR DIGIT GENERAL 3V FRONTAL/LAT/OBL RIGHT X-RAY EXAM OF FINGER(S) Danielle Car APRN.DIESEL CRANE OPERATOR [address] [place] [address] [place] [address] Referral ID Status Reason Start Date Expiration Date V isits Requested Visits Authorized [id number] Closed Auto-Generate d Referral 01/29/2021 02/28/2022 1 1 [facility] for visit Narrative* Diagnostic Procedure Only (Urgent) - Closed Specialty Diagnoses / Procedures Referred By Contac t Referred To Contact XR IMAGING Diagnoses Acute pain of left knee Procedures XR KNEE GENERAL 4V AP BOTH/PA BOTH/LAT/MERC LEFT RADIOLOGIC EXAM KNEE COMPLETE 4/MORE VIEWS Deepti Hernandez APRN.DIESEL CRANE OPERATOR [address] [place] [address] [place] [address] Referral ID Status Reason Start Date Expiration Date V isits Requested Visits Authorized [id number] Closed Auto-Generate d Referral 01/16/2023 02/15/2024 1 1 [facility] for visit Narrative* Diagnostic Procedure Only (Urgent) - Closed Specialty Diagnoses / Procedures Referred By Contac t Referred To Contact XR IMAGING Diagnoses Pain of right thumb Procedures XR DIGIT GENERAL 3V FRONTAL/LAT/OBL RIGHT X-RAY EXAM OF FINGER(S) Danielle Car, AMANUEL.DIESEL CRANE OPERATOR [address] [place] [address] [place] [address] Referral ID Status Reason Start Date Expiration Date V isits Requested Visits Authorized [id number] Closed Auto-Generate d Referral 01/29/2021 02/28/2022 1 1 [facility] Advance Directives No Advanced Directives Records FoundDocuments on File Type Date Recorded 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 Advance Directive(s) 03/06/2021 3:32 PM Summary Purpose Family History No Family History Records Found No data available for this section No data available for this section No data available for this section No Family History Records Found Additional Source Comments Source Comments (unrecognize d section and content) In the event this informatio n is protected by the Federal Confidentiality of Alcohol and Drug Abuse Patient Records regulations: The Federal rules restrict any use of the information to criminally investigate or prosecute any alcohol or drug abuse patient[facility] event this information is protected by the Federal Confidentiality of Alcohol and Drug Abuse Patient Records regulations: The Federal rules restrict any use of the information to criminally investigate or prosecute any alcohol or drug abuse patient.[facility] the event this information is protected by the Federal Confidentiality of Alcohol and Drug Abuse Patient Records regulations: The Federal rules restrict any use of the information to criminally investigate or prosecute any alcohol or drug abuse patient.[facility] the event this information is protected by the Federal Confidentiality of Alcohol and Drug Abuse Patient Records regulations: The Federal rules restrict any use of the information to criminally investigate or prosecute any alcohol or drug abuse patient.[facility] the event this information is protected by the Federal Confidentiality of Alcohol and Drug Abuse Patient Records regulations: The Federal rules restrict any use of the information to criminally investigate or prosecute any alcohol or drug abuse patient.[facility] the event this information is protected by the Federal Confidentiality of Alcohol and Drug Abuse Patient Records regulations: The Federal rules restrict any use of the information to criminally investigate or prosecute any alcohol or drug abuse patient.[facility] the event this information is protected by the Federal Confidentiality of Alcohol and Drug Abuse Patient Records regulations: The Federal rules restrict any use of the information to criminally investigate or prosecute any alcohol or drug abuse patient.[facility] the event this information is protected by the Federal Confidentiality of Alcohol and Drug Abuse Patient Records regulations: The Federal rules restrict any use of the information to criminally investigate or prosecute any alcohol or drug abuse patient.[facility] the event this information is protected by the Federal Confidentiality of Alcohol and Drug Abuse Patient Records regulations: The Federal rules restrict any use of the information to criminally investigate or prosecute any alcohol or drug abuse patient.[facility] Care Teams (unrecognized sec tion and content) Conference Services Coordinator Relationship Specialty Start Date End Date Alexx Segura MD [address] [place] [address] PCP - General Family Practice 12/30/18 Conference Services Coordinator Relationship Specialty Start Date End Date Alexx Segura MD [address] [place] [address] PCP - General Family Medicine 12/30/18 Conference Services Coordinator Relationship Specialty Start Date End Date Alexx Segura MD [address] [place] [address] PCP - General Family Medicine 12/30/18 Conference Services Coordinator Relationship Specialty Start Date End Date PcpChela APRN PCP - General Adult Health 05/13/23 12/07/23 Conference Services Coordinator Relationship Specialty Start Date End Date PcpChela APRN PCP - General Adult Health 05/13/23 12/07/23 Conference Services Coordinator Relationship Specialty Start Date End Date Alexx Segura MD [address] [place] [address] PCP - General Family Medicine 12/30/18 05/12/23 Reason for Visit (unrecogniz ed section and content) Reason Comments Ear Pain Right ear pain x 2 d ays Reason Comments Head Congestion Bilateral ears clogg ed, sinus VILLEGAS and pressure, cough, ST x1 week Reason Comments Referral faxed to neurology INFORMATION SOURCE (unrecogn ized section and content) DATE CREATED AUTHOR 08/16/2023 [facility] DATE CREATED AUTHOR 'S ORGANIZ ATION 12/30/2023 [facility] FOR RECORDS PERTAINING TO PATIENTS WHO ARE OR HAVE BEEN ENROLLED IN A CHEMICAL DEPENDENCY/SUBSTANCEABUSE PROGRAM, SOME INFORMATION MAY BE OMITTED. This clinical summary was aggregated from multiple sources. Caution should be exercised in using it in the provision of clinical care. This summary normalizes information from multiple sources, and as a consequence, information in this document may materially change the coding, format and clinical context of patient data. In addition, data may be omitted in some cases. CLINICAL DECISIONS SHOULD BE BASED ON THE PRIMARY CLINICAL RECORDS. [facility]. provides no warranty or guarantee of the accuracy or completeness of information in this document.
[2024-01-01 19:39] LABS: Anion Gap 5 (5-15); BUN 11 mg/dL (7-18); BUN/Creat Ratio 12.3 RATIO (10-20); Calcium,Total 9.3 mg/dL (8.5-10.1); Chloride 110 mmol/L (98-107); Creatinine, Serum 0.89 mg/dL (0.55-1.02); EST Glomerular Filtration Rate 71 mL/min (>60); Est Glom Filt Rate - Afr Amer 86 mL/min (>60); Estimated Creatinine Clearance 80.99 ml/min; Glucose 87 mg/dL (74-106); Potassium 3.8 mmol/L (3.5-5.1); Sodium Level 141 mmol/L (136-145); Troponin-I HS (w/2H Reflex) < 3 pg/mL (3.0-54.0)
--- NOTE | 2024-01-01 20:34 | EDS_ITS ---
HPI History of Present Illness Chief Complaint: Chest Pain Narrative Narrative: Patient is a 48-year-old female with past medical history meningioma, seizure disorder who presented to the emergency department chief complaint of chest pain rating to her left arm. States that she was just getting out of the shower earlier this evening when this all occurred. Patient states that the pain was persistent and has remained constant nothing makes it better or worse. Patient notes that she recently had a stress test as well as a echocardiogram which were normal. She also noted that she had an MRI of her whole spine which showed some cysts in her vertebrae but otherwise was unremarkable. Patient also noted that she had ultrasound of her carotid arteries which were also normal. [facility] Medical History Seizure disorder Meningioma Meningioma Vitamin deficiency Gallstones Carpal tunnel syndrome Home Medications ?Medication ?Instructions ?Recorded ?Last Taken ?Type marisabel.stocking,thigh,reg,med #24 ea 08/25/23 Unknown Rx esomeprazole magnesium 40 mg 40 mg PO QDAY #30 caps 12/16/23 Unknown Rx capsule,delayed release (Nexium) Allergy/AdvReac Type Severity Reaction Status Date / Time No Known Allergies Allergy Verified 01/01/24 18:47 Family History Mother Diabetes Father Heart disease Myocardial infarction, Onset Age: 46 Surgical History S/P cholecystectomy History of carpal tunnel surgery H/O: Social History adopted: No household members: spouse, family and children housing: house number of children: 5 current occupational status: employed current occupation: [employer] pets and animals: Yes sexually active: Yes Smoking Status: Current every day smoker tobacco type: cigarettes Tobacco: How many years used: 35 Electronic Cigarette Use: not used quit status: considering quitting alcohol intake: never substance use type: does not use caffeine: Yes (4) Type: carbonated beverages what type of physical activity do you participate in: none seatbelt use: always do you feel safe at home: Yes ROS ROS ED ROS Narrative Constitutional: Denies any fevers, chills, headaches complaints, dizziness Eyes: Denies any double vision blurry vision change in vision Cardiovascular: Complains of chest pain as noted above denies palpitations Respiratory: Denies coughing wheezing shortness of breath Abdomen: Denies abdominal pain nausea vomit diarrhea : Denies any urinary symptoms Neurological: Denies any numbness or tingling Musculoskeletal: Denies back pain Skin: Denies rashes or lesions EXAM Physical Exam Narrative Exam Narrative: General: Patient was lying in bed rest comfortably did not appear to be in acute distress Head: Atraumatic, normocephalic Eyes: PERRL bilaterally, EOMI bilateral, no conjunctival injection noted Neck: Soft, supple, trach midline Cardiovascular: Regular rate and rhythm no murmurs gallops rubs noted Respiratory: Clear to auscultation bilaterally Abdomen: Soft, nondistended, nontender to palpation, bowel sounds present in 4 Extremities: +5/5 strength noted in the bilateral upper and lower extremities, radial pulses +2/4 in the bilateral per extremities Neurological: Patient is following commands knew that she was at [facility] there is 2023 Skin: Warm, dry, intact Const Vital Signs: 01/01/24 18:47 01/01/24 18:49 01/01/24 19:47 Temperature 97.9 F Temperature Source Oral Pulse Rate 91 81 Respiratory Rate 18 17 Respiratory Effort Blood Pressure 169/84 H 144/75 H Blood Pressure Mean 112 98 Pulse Ox 100 99 99 Oxygen Delivery Method Room Air Room Air Room Air 01/01/24 20:00 01/01/24 20:00 01/01/24 21:00 Temperature Temperature Source Pulse Rate 79 73 Respiratory Rate 14 12 Respiratory Effort Short of Breath Blood Pressure 144/70 H Blood Pressure Mean 94 Pulse Ox 99 99 Oxygen Delivery Method Room Air Room Air MDM MDM MDM Narrative Medical decision making narrative: Patient is a 48-year-old female who presented to the emerged part with a chief complaint of chest pain . Patient will have a workup performed here on the differential diagnose clues but limited to ACS, pneumonia, pneumothorax. Once workup is obtained reviewed she will be reevaluated. Patient CBC reviewed and was largely unremarkable no evidence leukocytosis white blood count normal at 7.1, hemoglobin stable 14.7, platelet count normal at 233. Patient sodium normal 141, potassium normal at 3.8, creatinine normal at 0.89. Patient's troponin was less than 3 with a delta troponin obtained normal at 4. Patient EKG reviewed and showed sinus rhythm with a rate of 80 beats per minutes. This was independently turbid by myself. Patient chest x-ray reviewed by myself and by radiology which showed no acute radiographic abnormalities. I discussed the results with the patient and she is feeling better. States that she is under an extreme amount of stress recently as her daughter just recently went to [place] [facility] and she is now taking care of her children. She states that she would like to go home at this point time and will follow-up with her physician in the outpatient setting. She was encouraged to return with worsening symptoms or other concerns. All question concerns answered she is discharged home [facility]. Lab Data Labs: Laboratory Results - last 24 hr 01/01/24 01/01/24 18:53 21:06 WBC 7.1 RBC 5.31 Hgb 14.7 Hct 44.7 MCV 84.2 MCH 27.7 MCHC 32.9 RDW Std Deviation 43.7 RDW Coeff of Leia 14.3 Plt Count 233 MPV 10.4 Immature Gran % (Auto) 0.300 Neut % (Auto) 52.0 Lymph % (Auto) 41.5 H [place] % (Auto) 4.0 Eos % (Auto) 1.6 Baso % (Auto) 0.6 Absolute Neuts (auto) 3.7 Absolute Lymphs (auto) 2.93 Nucleated RBC % 0 Sodium 141 Potassium 3.8 Chloride 110 H Carbon Dioxide 27.0 Anion Gap 5 BUN 11 Creatinine 0.89 Estim Creat Clear Calc 80.99 Est GFR (MDRD) Af Amer 86 Est GFR (MDRD) Non-Af 71 BUN/Creatinine Ratio 12.3 Glucose 87 Calcium 9.3 Troponin I High Sens < 3 L 4 Radiography Diagnostic Testing: Clinical Impression(s) from Imaging Studies Chest X-Ray 01/01/24 19:18 IMPRESSION: No acute radiographic abnormalities. Electronically Signed: Jean Echavarria MD at 19:49 EDT , Discharge Plan Triage Chief Complaint: Chest Pain ED Provider: Thanh Mcdonald Dx/Rx/DC Orders Clinical Impression: Chest pain Prescriptions: No Action (DME) marisabel.stocking,thigh,reg,med Misc See Rx Instructions .Route Qty: 24 0RF Rx Instructions: As directed esomeprazole magnesium [Nexium] 40 mg capsule,delayed release(DR/EC) 40 mg PO QDAY Qty: 30 1RF Primary Care Provider: Tammy Ahn Referrals: Tammy Ahn MD [Primary Care Provider] - Activity Restrictions/Additional Instructions: Follow with your doctor in the outpatient setting. Return for worsening symptoms or any other concerns. Print Language: Filipino Disposition Disposition: Home, Self Care
[2024-01-01 20:59] LABS: Reflex Troponin-HS? (from REC) Y
[2024-01-01 21:43] LABS: Troponin-I HS 4 pg/mL (3.0-54.0)
== END 2024-01-01 22:12 | disposition home or self-care (01) ==
PROVIDERS: Emergency Provider Emergency Medicine; PCP Internal Medicine; Visit Provider Emergency Medicine
DX: R07.9 Chest pain, unspecified (principal); G40.909 Epilepsy, unspecified, not intractable, without status epilepticus; M79.602 Pain in left arm; F17.210 Nicotine dependence, cigarettes, uncomplicated
CPT/HCPCS: 71045; 80048; 84484; 85025; 93005; 99284; A4216

== ENCOUNTER → 2024-01-06 | Outpatient (CLI) | payer MEDICAID, SELFPAY | END | disposition home or self-care (01) | LOC: PSN 11:52 | PROVIDERS: PCP Internal Medicine; Referring Provider Internal Medicine; Visit Provider Internal Medicine | DX: R00.2 Palpitations (principal); R42 Dizziness and giddiness | CPT/HCPCS: 93225; 93226 ==

== ENCOUNTER → 2024-04-25 | Outpatient (CLI) | payer MEDICAID, SELFPAY | END | disposition home or self-care (01) | LOC: BIMLAB 14:18 | PROVIDERS: PCP Internal Medicine; Referring Provider Internal Medicine; Visit Provider Internal Medicine | DX: E03.9 Hypothyroidism, unspecified (principal) | CPT/HCPCS: 36415; 84443 ==

== ENCOUNTER 2024-06-03 14:00 | Outpatient (RCR) | payer MEDICAID, SELFPAY ==
--- NOTE | 2024-05-02 14:46 | HP.PTEVAL_ITS ---
Patient's Visit Information Visit Information Visit Information: LADARIUS FIGUEROA is a 48 year old F referred to Physical Therapy by Dr. Tammy Ahn MD with a diagnosis of LBP with B sciatica. Date of Evaluation: 05/02/24 Physical Therapist: Fredo Sepulveda, DPT, OCS, CSCS Visit Plan Frequency: 2x /Week Duration: 4-6 Weeks Plan: 2x/wek for 4-6 week starting with aquatic therapy to work on plvic and l umbar ROM, HS streetching, core strength to general strength via HEP or pool. IE: given Pelvic tilt supine to help jummp start this movement whcih is minimal Subjective Subjective: Has a lot of LBP running down legs. Will be sent to spine doctor at some point. LB has hurt for over a year, starting at work. Pulled something but it never worked out. Tingles in whole body at times, had EEG and has shown signs of seizures. Sees neurologist for meningioma tumor in brain. NCV test on legs last week without results. Has numbness and tingling at times in legs and twitches which she is seeing neuro for. LBP: constant, worse with getting up and moving around alot., standing is worse. Sitting is better for short times. Not employed due to all problems and cannot function, has been out since last August. No diagnosis. Sleep is not great, back may keep her up a little bit. Spends day pittering around house. Hobbies: bingo, No regular exercises: [employer]et at [employer] until last August. Pain LBP: Pain Intensity (Out of 10): 6 Pain Intensity Range: 6 and 9 Objective Objective: Walks slowly with short steps into PT, poor confidence i her movement, stiff. Trasnfers bd and chair I with log rolling and hesitant to move quickly but I. Posture is forward head and kyphotic T/S, Lumbar area stiff with poor pelvic movement and slight anterior rotation. LB AROM ext max limited with pain, flexion mod limited with pain both centrall. B SB mod deficits. HS and quad mod tight, HS at -40 90/90 testing adn + R SLR Hip and LE AROM othrwise WFL. strength LE WFL and no myotomal problems, 3+ hips, 4- knee flexion and L knee ext adn 4 R knee ext, ankles at 4+/5 reflexes 2/3 patella and achilles Sensation wNL to gross light touch in L today B. Unable to pelvic tilt supin without many veerbal and tactile cues.Minimal movement even with those. PA pressure Lower lumbar is painful and poor mobility Balance/Special Test Scores Oswestry Low Back Score: 24 Goals Goal 1:: Pain in LB and legs 3/10 at worst adn 75% improved Goal Time Frame: 4-6 Weeks Goal 2:: Have minimal movement in pelvis and only min deficits in lumbar ROM without incrasd pain past 2/10 Goal Time Frame: 4-6 Weeks Goal 3:: I appropriate himee, gym, pool ex to limit future eproblms. Goal Time Frame: 4-6 Weeks Goal 4:: sleep without interruption from LBP Goal Time Frame: 4-6 Weeks Goal 5:: oswestry score5 or better Goal Time Frame: 4-6 Weeks Goal 6:: Walk without hsitation with reciprocal non stiff movements into Pt clinic Rehabilitation Potential Physical Therapy Diagnosis: Limited pelvic and lumbar ROM and pain limiting comfortable funciton Rehabilitation Potential: Questionable Anticipated Interventions Patient/Client Instruction: Educate patient on: Condition and Plan of Care For the Purpose of:: To decrease pain, To increase ROM, To improve nutrient delivery to tissue, To improve muscle performance and motor function, To increase tolerance to activity/condition/position and To improve gait and locomotor functions Therapeutic Exercise to Include: Strength training, Postural training, Flexibilty training, In an aquatic setting, Passive ROM and Active ROM For the Purpose of:: To decrease pain, To increase ROM, To improve nutrient delivery to tissue, To improve muscle performance and motor function, To increase tolerance to activity/condition/position and To improve ability of physical actions for home/community/work/leisure Text: Thank you for the opportunity to evaluate your patient. For Medicare and Medicare HMO plans, please review the plan of care and approve it. It will need to be FAXED BACK to us at [phone] for Medicare purposes. For Medicare only, by signing this I certify the plan of care. Please let me know if there are questions or concerns regarding this plan of care. Physician Signature: Date:
--- NOTE | 2024-07-14 16:04 | HP.PTDCSUM ---
Discharge Summary D/C summary: It has been my pleasure to treat LADARIUS FIGUEROA referred by Dr. Tammy Ahn MD, with the diagnosis of LBP with B sciatica for a total of 10 visit(s). Discharge Date: 06/03/24 Please see the following information for a summary of their discharge status. Subjective Subjective: Feels pretty good in the pool and better for the most part when out. I have my days though. Some days better than others. Walking seems to make R leg pain worse. Walking to back of [employer] is a problem. HEP going well. Sleep is not great. pain management is next management. Pain LBP: Pain Intensity (Out of 10): 7 Bilat hips: Pain Intensity (Out of 10): 8 L calf: Pain Intensity (Out of 10): Unrated Overall Improvement % Improvement: 3 Objective Objective/Function: Walking gingerly with R antalgia today and shor t L step length. , R hip ROM IR and er very painful and limtied compared to L as is flexion. + R OLAMIDE and FADDIR. Lumbar ROM mod limtied in extension with increaseed R LBP, B SB are ok, flexion is limited and painful R posteerior hip. Pt not improving in ROM or subjeective and susupicious for hip involvement also which I would clear before focussing on back pain management Goals Goal 1:: Pain in LB and legs 3/10 at worst adn 75% improved Goal Progress: Not Progressing Goal 2:: Have minimal movement in pelvis and only min deficits in lumbar ROM without incrasd pain past 2/10 Goal Progress: Not Progressing Goal 3:: I appropriate himee, gym, pool ex to limit future problems. Goal Progress: Goal Met Goal 4:: sleep without interruption from LBP Goal Progress: Not Progressing Goal 5:: oswestry score5 or better Goal Progress: Not Progressing Goal 6:: Walk without hsitation with reciprocal non stiff movements into Pt clinic Goal Progress: Not Progressing Plan Plan: d/c, pt to contact doctor regarding lack of progress and next step, continue HEP in the meantime. D/C Information Discharge Comments: Pt not progressing with pain and wishes to take next step. d/c sentence: If there are questions or concerns regarding this patient's physical therapy, please feel free to call me at [phone]. Thank you for the referral of this patient. Sincerely, Fredo Sepulveda, DPT, OCS, CSCS Balance/Gait/Functional tests Balance/Special Test Scores Oswestry Low Back Score: 17 Improvement % Improvement: 3
== END 2024-06-03 19:00 | disposition home or self-care (01) ==
LOC: PT 14:00
PROVIDERS: PCP Internal Medicine; Referring Provider Internal Medicine; Visit Provider Internal Medicine
DX: M54.41 Lumbago with sciatica, right side (principal); M54.42 Lumbago with sciatica, left side; G89.29 Other chronic pain
CPT/HCPCS: 97113; 97162; 97530

== ENCOUNTER 2024-07-16 03:01 | Emergency (ER) | payer MEDICAID, SELFPAY ==
[2024-07-16 03:02] VITALS: BP 157/63; PULSE 97; RESP 16; TEMP 37; O2SAT 98; BMI 39.4
[2024-07-16 03:17] VITALS: O2SAT 98
--- NOTE | 2024-07-16 03:17 | EKG12_ITS ---
Test Reason : DYSRHYTHMIA Blood Pressure : */* mmHG Vent. Rate : 97 BPM Atrial Rate : 97 BPM P-R Int : 142 ms QRS Dur : 82 ms QT Int : 352 ms P-R-T Axes : 57 45 39 degrees QTcB Int : 447 ms Normal sinus rhythm Normal ECG Confirmed by Natalio Brice ([id number]), desk editor BIGG MORILLO ([id number]) on 07/18/2024 9:02:33 AM Referred By: AR Confirmed By: Natalio Brice
--- NOTE | 2024-07-16 03:19 | EDS_ITS ---
HPI History of Present Illness Chief Complaint: Palpitations Narrative Narrative: 49-year-old female presents with her daughter because of chest heaviness that she has had for the last few days. She states has been consistent and constant. She has not had any fevers or chills, no cough, no nausea or vomiting, no diaphoresis. She states that sometimes she gets winded and short of breath when she exerts herself. She describes it more as a chest heaviness, but sometimes can be sharp and stabbing more towards the left side and towards the middle of her chest. She does have past medical history of thyroid problems which she states that her primary care provider may have overcorrected. She also sees a neurologist because she has tingling sensation throughout her body. She takes gabapentin 400 mg 3 times a day for this. She states that she has had multiple studies done on her heart including echocardiogram and stress test. She states she has had this heaviness previously, but not as severe and constant over the last few days. She is a smoker. [facility] Medical History Seizure disorder Meningioma Meningioma Vitamin deficiency Gallstones Carpal tunnel syndrome Home Medications ?Medication ?Instructions ?Recorded ?Last Taken ?Type [email or web address],thigh,reg,med #[email or web address] ea 08/25/23 Unknown Rx fluticasone propionate 50 1 spray intranasal QDAY 04/09 10/31 Unknown History mcg/actuation nasal spray,suspension (Flonase Allergy Relief) gabapentin 400 mg capsule 400 mg PO TID 04/26/24 Unkno wn History esomeprazole magnesium 40 mg 40 mg PO QDAY #90 caps Unknown Rx capsule,delayed release Allergy/AdvReac Type Severity Reaction Status Date / Time No Known Allergies Allergy Verified 04/26/24 07:57 Family History Mother Diabetes Father Heart disease Myocardial infarction, Onset Age: 46 Surgical History S/P cholecystectomy History of carpal tunnel surgery H/O: Social History adopted: No household members: spouse, family and children housing: house number of children: 5 current occupational status: employed current occupation: [employer] pets and animals: Yes sexually active: Yes Smoking Status: Current every day smoker tobacco type: cigarettes Tobacco: How many years used: 35 Electronic Cigarette Use: not used quit status: considering quitting alcohol intake: never substance use type: does not use caffeine: Yes (4) Type: carbonated beverages what type of physical activity do you participate in: none seatbelt use: always do you feel safe at home: Yes ROS ROS ED ROS Narrative Constitutional: No fever, no chills. HEENT: No sore throat. No neck pain. No loss of vision. No rhinorrhea. Cardiovascular: Positive chest heaviness and also stabbing chest pain. Occasional palpitations. No pedal edema. Respiratory: No cough, intermittent shortness of breath. Abdominal: No abdominal pain. No nausea. No vomiting. Neurologic: No headaches. No dizziness. No lightheadedness. Psychiatric: Positive depression. No anxiety. EXAM Physical Exam Narrative Exam Narrative: Afebrile. Vital signs noted. Nontoxic-appearing. Cardiovascular examination reveals a regular rate and rhythm. Lungs are clear to auscultation bilaterally. Abdomen is soft, nontender without guarding or rebound. Positive bowel sounds. Neurological examination is nonfocal and nonlateralizing. No pedal edema. Const Vital Signs: 07/16/24 03:02 07/16/24 03:02 07/16/24 03:17 Temperature 98.6 F Temperature Source Oral Pulse Rate 97 Respiratory Rate 16 Respiratory Effort Normal Non-Labored Blood Pressure 157/63 H Blood Pressure Mean 94 Pulse Ox 98 98 Oxygen Delivery Method Room Air Room Air 07/16/24 04:02 07/16/24 05:00 Temperature Temperature Source Pulse Rate 86 71 Respiratory Rate 17 16 Respiratory Effort Blood Pressure 134/54 H 139/56 H Blood Pressure Mean 80 83 Pulse Ox 98 98 Oxygen Delivery Method Room Air Room Air Heart Score History: Slightly/Non-Suspicious ECG: Normal Age: >45 - <65 years Risk Factors: 1 or 2 Risk Factors Troponin: </= Normal Limit Score: 2 MDM MDM MDM Narrative Medical decision making narrative: Differential diagnosis includes ACS versus pneumonia versus pneumothorax. I feel there is low probability for pulmonary embolism as her pulse ox is 98% on room air and she denies any DVT or PE risk factors. I feel her Wells score is low as well. Also the differential diagnosis would be anxiety and depression. Chest pain workup was pursued. EKG obtained and interpreted by myself independently as normal sinus rhythm at 97 bpm without ectopy or acute ST changes. No STEMI. I reviewed her prior records and she does have history of chest pain and workup previously. I reviewed her laboratory work and she has normal white count 9.8 with hemoglobin 15.2 and hematocrit 46. She has had a hemoglobin elevated in the past when compared to prior labs. Platelet count normal at 258. Electrolyte panel is grossly unremarkable except for glucose elevated at 203. Normal anion gap of 13. Initial high-sensitivity troponin is 6. On my individual interpretation of her chest x-ray, there is no acute process, no pneumonia, no pneumothorax. I reviewed the radiology report which confirms my independent interpretation. As she has had the feeling of not feeling well for about a year, I do feel that depression and anxiety may play a role in her symptomatology. As long as her repeat troponin is negative, I feel that she can be discharged to follow-up with her neurologist and her primary care provider. Her repeat troponin is less than 6 for an acceptable delta troponin. At this point in time, upon repeat examination, she states she feels the same. She feels that this may be more muscular or neurological in nature. She states she needs to follow-up with a neuromuscular physician. I feel she can be discharged to follow-up given her negative workup here in the emergency department. Return instructions to the emergency department were reviewed. Disposition is discharged home in stable condition. History & Record Review Discussion w/independent historian: Patient Additional record(s) reviewed:: Prior ED visit and Prior labs Lab Data Attestation: I reviewed the patient's lab results. Labs: Laboratory Results - last 24 hr 07/16/24 07/16/24 03:07 05:10 WBC 9.8 RBC 5.51 H Hgb 15.2 H Hct 46.0 MCV 83.5 MCH 27.6 MCHC 33.0 RDW Std Deviation 44.2 H RDW Coeff of Leia 14.6 Plt Count 258 MPV 10.8 Immature Gran % (Auto) 0.600 Neut % (Auto) 56.2 Lymph % (Auto) 37.9 [place] % (Auto) 3.6 Eos % (Auto) 1.3 Baso % (Auto) 0.4 Absolute Neuts (auto) 5.5 Absolute Lymphs (auto) 3.70 Nucleated RBC % 0 Sodium 138 Potassium 4.0 Chloride 103 Carbon Dioxide 21.9 Anion Gap 13 BUN 9 Creatinine 0.91 Estim Creat Clear Calc 82.99 Est GFR (MDRD) Non-Af 77 BUN/Creatinine Ratio 9.8 L Glucose 203 H Calcium 9.2 Troponin T High Sens 6 Troponin T Hi Sens 2 Hr < 6 Radiography Chest X-Ray - ED: 1 View, Read by ED Physician, Read by Radiologist and No Acute Disease Diagnostic Testing: Clinical Impression(s) from Imaging Studies Chest X-Ray 07/16/24 03:20 IMPRESSION: No evidence of acute disease. Reading Location: [facility] Discharge Plan Triage Chief Complaint: Palpitations ED Provider: Adal Dempsey Dx/Rx/DC Orders Clinical Impression: Chest pain, Chest pressure Instructions: ED Chest Pain, Noncardiac, ED Chest Pain, Uncertain Cause Prescriptions: No Action (DME) marisabel.stocking,thigh,reg,med Misc See Rx Instructions .Route Qty: 24 0RF Rx Instructions: As directed gabapentin 400 mg capsule 400 mg PO TID fluticasone propionate [Flonase Allergy Relief] 50 mcg/actuation spray,suspension 1 spray intranasal QDAY Rx Instructions: administer into each nostril esomeprazole magnesium 40 mg capsule,delayed release(DR/EC) 40 mg PO QDAY Qty: 90 1RF Primary Care Provider: Tammy Ahn Referrals: Tammy Ahn MD [Primary Care Provider] - As soon as possible Activity Restrictions/Additional Instructions: Follow-up with your primary care provider. Follow-up with your neuromuscular physician as well. Return with new or worsening symptoms. Print Language: Haitian Disposition Disposition: Home, Self Care
--- NOTE | 2024-07-16 03:20 | RAD_ITS ---
PROCEDURE: CHEST 1 VIEW (PORTABLE) 07/16/2024 REASON FOR EXAM: CHEST PAIN TECHNIQUE: Frontal view of the chest. COMPARISON: 01/01/2024 FINDINGS: The lungs appear clear. Pulmonary vascularity appears within limits. No pleural effusion. Cardiac and mediastinal contours appear within limits. The visualized osseous structures appear within limits. RAD/Chest 1 View (Portable) IMPRESSION: No evidence of acute disease. Reading Location: [id number]
[2024-07-16 03:24] LABS: Absolute Neutrophil Count 5.5 X10^3/uL (2.0-7.7); Basophil# 0.04 X10^3/uL; Basophil% 0.4 % (0-1); Eosinophil# 0.13 X10^3/uL; Eosinophils% 1.3 % (0-5); Hemoglobin 15.2 g/dL (12.0-15.0); Lymphocyte % 37.9 % (19-41); Mean Corpuscular Hgb 27.6 pg (27.0-32.0); Mean Corpuscular Volume 83.5 fL (81-99); Mean Platelet Vol. 10.8 fl (6.2-12.0); Monocyte# 0.35 X10^3/uL; Monocyte% 3.6 % (0-10); NRBC Flagged by Analyzer 0 % (0-5); Neutrophil # 5.49 X10^3/uL (2.7-7.7); Neutrophil % 56.2 % (47-70); Platelet Count 258 K/mm3 (150-450); RBC Distribution Width CV 14.6 % (11.6-14.6); RBC Distribution Width SD 44.2 fl (35.1-43.9); Red Blood Count 5.51 M/mm3 (4.2-5.4); White Blood Count 9.8 K/mm3 (4.4-11.0)
[2024-07-16] MEDS: Aspirin 81 MG TAB.CHEW 324 MG PO (03:31)
[2024-07-16 03:48] LABS: Anion Gap 13 (5-15); BUN 9 mg/dL (4-19); BUN/Creat Ratio 9.8 RATIO (10-20); Calcium,Total 9.2 mg/dL (7.6-11.0); Carbon Dioxide 21.9 mmol/L (21.0-32.0); Chloride 103 mmol/L (98-108); Creatinine, Serum 0.91 mg/dL (0.70-1.20); EST Glomerular Filtration Rate 77 (>60); Estimated Creatinine Clearance 82.99 ml/min (50-250); Glucose 203 mg/dL (70-99); Sodium Level 138 mmol/L (133-145); Troponin T High Sensitivity 6 ng/L (<=14)
[2024-07-16 04:02] VITALS: BP 134/54; PULSE 86; RESP 17; O2SAT 98
[2024-07-16 05:00] VITALS: BP 139/56; PULSE 71; RESP 16; O2SAT 98
[2024-07-16 05:32] LABS: Troponin T High Sens 2 HR < 6 ng/L (<=14)
[2024-07-16 05:48] VITALS: BP 139/76; PULSE 72; RESP 12; TEMP 36.7; O2SAT 99
== END 2024-07-16 06:02 | disposition home or self-care (01) ==
PROVIDERS: Emergency Provider Emergency Medicine; PCP Internal Medicine; Visit Provider Emergency Medicine
DX: R07.89 Other chest pain (principal); R00.2 Palpitations; F17.210 Nicotine dependence, cigarettes, uncomplicated; Z79.899 Other long term (current) drug therapy
CPT/HCPCS: 71045; 80048; 84484; 85025; 93005; 99284; A4216

== ENCOUNTER → 2024-10-05 | Outpatient (CLI) | payer MEDICAID, SELFPAY ==
[2024-10-05 16:10] LABS: Hematocrit 44.4 % (37-47); Hemoglobin 14.1 g/dL (12.0-15.0); Immature Granulocytes Count 0.040 X10^3/uL (0.0-0.0); Mean Corp Hgb Conc 31.8 g/dL (32-36); Mean Corpuscular Volume 85.1 fL (81-99); Mean Platelet Vol. 11.2 fl (6.2-12.0); NRBC Flagged by Analyzer 0 % (0-5); Platelet Count 226 K/mm3 (150-450); RBC Distribution Width CV 15.3 % (11.6-14.6); RBC Distribution Width SD 47.2 fl (35.1-43.9); Red Blood Count 5.22 M/mm3 (4.2-5.4); White Blood Count 6.9 K/mm3 (4.4-11.0)
[2024-10-05 16:36] LABS: AST(SGOT) 19 U/L (<=31); Alanine Aminotransfer ALT/SGPT 23 U/L (<=34); Albumin, Serum 3.8 g/dL (3.5-5.0); Alkaline Phosphatase 115 U/L (35-104); Anion Gap 11 (5-15); BUN 14 mg/dL (4-19); BUN/Creat Ratio 13.8 RATIO (10-20); Calcium,Total 9.1 mg/dL (7.6-11.0); Carbon Dioxide 23.6 mmol/L (21.0-32.0); Chloride 106 mmol/L (98-108); Cholesterol 167 mg/dL (<=200); Globulin 3.0 g/dL (2.2-4.2); Glucose 140 mg/dL (70-99); Low Density Lipoprotein Calc. 90 mg/dL; Potassium 4.2 mmol/L (3.3-5.1); Triglycerides 268 mg/dL; Very Low Density Lipoprotein 54 mg/dL (5-40); cholesterol:hdl ratio screen 7.08
--- OUTSIDE RECORDS SUMMARY | 2024-10-05 20:26 | XMS RPT_ITS | CCD ---
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 Savita Ahn MD Primary Care Provider [phone] Dr. Savita Ahn MD Attending Provider Dr. Savita Ahn MD Referring Provider Adal Dempsey MD Emergency Provider Adal Dempsey MD Attending Provider Kary Galindo MD Unavailable ALEXX MACE Referring Unavailab ALEXX Hirsch Attending Unavailab KARY Trevizo Referring Unavailable Dr. Savita Ahn MD Primary Care Provider [phone] Dr. Savita Ahn MD Attending Provider Dr. Savita Ahn MD Referring Provider Savita Ahn Attending Unavailable Jimy, Savita Referring Unavailable Pond Eddy, Savita Primary Care Unavailable Jimy, Savita Attending Unavailable Jimy, Savita Primary Care Unavailable Pond Eddy, Savita Referring Unavailable Jimy, Savita Primary Care Unavailable Pond Eddy, Savita Attending Unavailable Jimy, Savita Attending Unavailable Jimy, Savita Referring Unavailable Pond Eddy, Savita Primary Care Unavailable Mayco Chavez Attending Unavailable Pond Eddy, Savita Referring Unavailable Jimy, Savita Primary Care Unavailable Humberto Lira Attending Unavailable Pond Eddy, Savita Referring Unavailable Jimy, Savita Primary Care Unavailable Sangeetha Garibay Attending Unavailable Jimy, Savita Referring Unavailable Pond Eddy, Savita Primary Care Unavailable Pond Eddy, Savita Attending Unavailable Pond Eddy, Savita Primary Care Unavailable Jimy, Savita Referring Unavailable Jimy, Savita Attending Unavailable Jimy, Savita Referring Unavailable Pond Eddy, Savita Primary Care Unavailable Jimy, Savita Attending Unavailable Pond Eddy, Savita Referring Unavailable Pond Eddy, Savita Primary Care Unavailable Andrea Mcmullen Attending Unavailable Pond Eddy, Savita Primary Care Unavailable Nelson Ba Attending Unavailable Pond Eddy, Savita Primary Care Unavailable Thanh Mcdonald Attending Unavailable Jimy, Savita Primary Care Unavailable Thanh Mcdonald Attending Unavailable Jimy, Savita Primary Care Unavailable Adal Dempsey Attending Unavailable Jimy, Savita Primary Care Unavailable Medications Current Medications Medication Drug Class(es) [...] / phenylephrine hydrochloride 5 mg oral tablet (12 sources) alpha-1 Adrenergic Agonist PHENYLephrine-Behzad taminophen (TYLENOL SINUS HEADACHE) 5-325 mg tab Take 2 tablets by mouth as needed. Active Comment on above: Take 2 tablets by [facility] needed. amoxicillin 875 mg oral tablet (1 source) Penicillin-class Antibacterial Start: 11-27-2021 End: 12-04-2021 take 1 tablet by mouth twice daily amoxicillin (AMOXIL) 875 mg tablet Take 1 tablet by mouth twice daily for 7 days. 14 tablet 0 11/27/2021 12/04/2021 Active Comment on above: Take 1 tablet by [facility] twice daily for 7 days. amoxicillin 875 mg / clavulanate 125 mg oral tablet (4 sources) Penicillin-class Antibacterial Start: 05-19-2022 End: 05-29-2022 take 1 tablet by mouth twice daily amoxicillin-clavu lanic acid (AUGMENTIN) 875-125 mg per tablet Indications: Acute frontal sinusitis, recurrence not specified Take 1 tablet by mouth twice daily for 10 days. 20 tablet 0 05/19/2022 05/29/2022 Active Start: 08-24-2017 End: 07-30-2023 take 1 tablet by mouth every twelve hours Amoxicillin-Pot Clavulanate 875 MG tablet Discontinued 875 mg PO Q12H 20 0 August 24, 2017 12:00am July 30, 2023 4:33pm Comment on above: Take 1 tablet by [facility] twice daily for 10 days. Marisabel.Stocking,Thigh, Reg,Med misc (3 sources) Start: 08-25-2023 Marisabel.Stocking,Thigh, Reg,Med misc Active 0 .Route 24 August 25, 2023 12:00am As directed Start: 08-25-2023 Marisabel.Stocki ng,Thigh,Reg,Med misc Active 0 .Route August 25, 2023 12:00am As directed DULoxetine 30 mg delayed release oral capsule (13 sources) Serotonin and Norepinephrine Reuptake Inhibitor Start: 12-30-2018 take 1 capsule by mouth once daily DULoxetine (CYMBALTA) 30 mg capsule Take 1 capsule by mouth once daily. 30 capsule 5 12/30/2018 Active Comment on above: Take 1 capsule [facility] daily. fluticasone propionate 0.05 mg/actuat metered dose nasal spray (3 sources) Corticosteroid Start: 04-26-2024 take 50 ug nasal route once daily Fluticasone Propionate (Flonase Allergy Relief) 50 mcg/actuation spray,suspension Active 1 NMA INTRANASAL daily April 26, 2024 1:00am administer into each nostril gabapentin 400 mg oral capsule (8 sources) Anti-epileptic Agent Start: 10-04-2024 take 1 capsule by mouth twice daily Gabapentin 400 mg capsule Active 400 mg PO TWICE A DAY October 04, 2024 8:59am Start: 08-15-2024 End: 02-11-2025 take 1 tablet by mouth at bedtime Gabapentin 600 mg tablet Active 600 mg PO AT BEDTIME October 04, 2024 12:00am Start: 04-26-2024 End: 10-04-2024 take 1 capsule by mouth three times daily Gabapentin 400 mg capsule Discontinued 400 mg PO THREE TIMES A DAY April 26, 2024 1:00am October 04, 2024 9:00am pantoprazole 40 mg delayed release oral tablet (4 sources) Proton Pump Inhibitor Start: 10-04-2024 take 1 tablet by mouth once daily Pantoprazole (Protonix) 40 mg tablet,delayed release (DR/EC) Active 40 mg PO daily 30 0 October 04, 2024 12:00am Start: 11-26-2023 End: 12-16-2023 take 1 tablet by mouth once daily Pantoprazole (Protonix) 40 mg tablet,delayed release (DR/EC) Discontinued 40 mg PO DAILY 30 0 November 26, 2023 12:00am December 16, 2023 11:33am Completed/Discontinued Medications Medication Drug Class(es) Dates Sig (Normalized) Sig (Original) clorazepate dipotassium 3.75 mg oral tablet (3 sources) Benzodiazepine Start: 11-11-2023 End: 12-04-2023 take 1 tablet by mouth three times daily as needed for anxiety Clorazepate Dipotassium 3.75 mg tablet Discontinued 3.75 mg PO THREE TIMES A DAY as needed for anxiety 14 5 0 November 11, 2023 12:00am December 04, 2023 1:13am Anxious reaction Generalized anxiety disorder escitalopram 10 mg oral tablet (3 sources) Serotonin Reuptake Inhibitor Start: 08-28-2023 End: 10-23-2023 take 1 tablet by mouth once daily Escitalopram Oxalate (Lexapro) 10 mg tablet Discontinued 10 mg PO DAILY 30 August 28, 2023 12:00am October 23, 2023 8:23am esomeprazole 40 mg delayed release oral capsule (12 sources) Proton Pump Inhibitor Start: 05-19-2024 End: 10-04-2024 take 1 capsule by mouth once daily Esomeprazole Magnesium 40 mg capsule,delayed release(DR/EC) Discontinued 40 mg PO daily May 19, 2024 12:40pm October 04, 2024 9:24am Start: 04-26-2024 End: 05-19-2024 take 1 capsule by mouth once daily Esomeprazole Magnesium 20 mg capsule,delayed release(DR/EC) Discontinued 20 mg PO daily April 26, 2024 9:26am May 19, 2024 12:40pm Start: 12-16-2023 End: 04-26-2024 take 1 capsule by mouth once daily Esomeprazole Magnesium (Nexium) 40 mg capsule,delayed release(DR/EC) Discontinued 40 mg PO daily 07 04February 08, 2024 11:01am April 26, 2024 9:34am hydrOXYzine hydrochloride 25 mg oral tablet (6 sources) Antihistamine Start: 12-04-2023 End: 12-16-2023 take 1 tablet by mouth twice daily as needed for anxiety Hydroxyzine Hcl 25 mg tablet Discontinued 25 mg PO TWICE DAILY NEEDED as needed for anxiety December 04, 2023 12:00am December 16, 2023 11:33am Start: 08-07-2023 End: 08-16-2023 take 1 tablet by mouth twice daily as needed for anxiety Hydroxyzine Hcl 25 mg tablet Discontinued 25 mg PO TWICE A DAY as needed for anxiety August 07, 2023 12:00am August 16, 2023 4:37pm levETIRAcetam 500 mg oral tablet (3 sources) Start: 10-23-2023 End: 12-04-2023 take 1 tablet by mouth twice daily Levetiracetam (Keppra) 500 mg tablet Discontinued 500 mg PO TWICE A DAY October 23, 2023 12:00am December 04, 2023 1:12am levothyroxine sodium 0.15 mg oral capsule (3 sources) l-Thyroxine Start: 04-26-2024 End: 07-16-2024 take 1 capsule by mouth once daily Levothyroxine 150 mcg capsule Discontinued 150 ug PO daily 30 April 26, 2024 1:00am July 16, 2024 3:02am meclizine hydrochloride 25 mg oral tablet (6 sources) Antiemetic Start: 08-16-2023 End: 12-04-2023 take 1 tablet by mouth every eight hours as needed for dizziness Meclizine 25 mg tablet Discontinued 25 mg PO EVERY 8 HOURS NEEDED as needed for Dizziness October 23, 2023 8:23am December 04, 2023 1:12am meloxicam 7.5 mg oral tablet (3 sources) Nonsteroidal Anti-inflammatory Drug Start: 04-26-2024 End: 07-16-2024 take 1 tablet by mouth once daily Meloxicam 7.5 mg tablet Discontinued 7.5 mg PO daily April 26, 2024 1:00am July 16, 2024 3:03am naproxen 500 mg oral tablet (3 sources) Nonsteroidal Anti-inflammatory Drug Start: 08-24-2017 End: 07-30-2023 take 1 tablet by mouth twice daily as needed Naproxen 500 MG tablet Discontinued 500 mg PO TWICE DAILY NEEDED August 24, 2017 12:00am July 30, 2023 4:33pm Problems Active Problems Problem Classification Problem Date Documented Date Episodic/Chronic Anxiety disorders (4 sources) Anxiety; Translations: [Generalized anxiety disorder] Onset: 02-22-2024 11-19-2023 Chronic Cardiac dysrhythmias (4 sources) Palpitations; Translations: [Palpitations] Onset: 10-04-2024 04-26-2024 Episodic Disorders of lipid metabolism (13 sources) Hypertriglyceridemia; Translations: [Pure hyperglyceridemia] 12-30-2018 Chronic Epilepsy; convulsions (3 sources) Seizure disorder; Translations: [Epilepsy, unspecified, not intractable, without status epilepticus] 11-11-2023 Chronic Esophageal disorders (7 sources) Gastroesophageal reflux disease; Translations: [Gastro-esophageal reflux disease without esophagitis] Onset: 12-25-2023 12-04-2023 Chronic Gastritis and duodenitis (3 sources) Gastritis; Translations: [Gastritis, unspecified, without bleeding] 12-04-2023 Episodic Headache; including migraine (6 sources) Headache; Translations: [Headache] 08-07-2023 Episodic Menstrual disorders (13 sources) Irregular periods; Translations: [Irregular menstruation, unspecified] Onset: 01-07-2012 01-07-2012 Chronic Mood disorders (4 sources) Moderate major depression ; Translations: [Major depressive disorder, single episode, moderate] Onset: 12-25-2023 04-26-2024 Chronic Nutritional deficiencies (13 sources) Vitamin D deficiency; Translations: [Vitamin D deficiency, unspecified] 12-30-2018 Chronic Other aftercare (3 sources) Post-discharge follow-up; Translations: [Encounter for follow-up examination after completed treatment for conditions other than malignant neoplasm] 08-25-2023 Episodic Other and unspecified benign neoplasm (10 sources) Neoplasm of meninges; Translations: [Benign neoplasm of meninges, unspecified] 08-07-2023 Chronic Other and unspecified benign neoplasm (3 sources) Intracranial meningioma; Translations: [Benign neoplasm of cerebral meninges] 08-07-2023 Chronic Other and unspecified benign neoplasm (2 sources) Benign neoplasm of meninges, unspecified; Translations: [Meningioma (HCC)] Onset: 12-25-2023 Chronic Other circulatory disease (6 sources) Elevated blood pressure; Translations: [Elevated blood-pressure reading, without diagnosis of hypertension] 08-07-2023 Episodic Other connective tissue disease (1 source) Pain in right thumb; Translations: [Pain in right finger(s)] 01-29-2021 Episodic Other connective tissue disease (3 sources) Neuropathic pain; Translations: [Neuralgia and neuritis, unspecified] 08-07-2023 Episodic Other ear and sense organ disorders (3 sources) Tinnitus; Translations: [Tinnitus, unspecified ear] 10-24-2023 Episodic Other nervous system disorders (3 sources) Perineurial cyst; 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] 04-26-2024 Chronic Other nervous system disorders (1 source) Other chronic pain; Translations: [Other chronic pain] Onset: 04-26-2024 Chronic Other nervous system disorders (3 sources) Observation of sensation; Translations: [Other disturbances of skin sensation] 08-13-2023 Episodic Other nervous system disorders (3 sources) Numbness and tingling sensation of skin; Translations: [Anesthesia of skin] 12-12-2023 Episodic Other nervous system disorders (4 sources) Paresthesia; Translations: [Paresthesia of skin] 09-05-2023 Episodic Other nervous system disorders (3 sources) Finding of sensation of lower limb; Translations: [Unspecified disturbances of skin sensation] 11-19-2023 Episodic Other nervous system disorders (3 sources) Skin sensation disturbance; Translations: [Unspecified disturbances of skin sensation] 11-19-2023 Episodic Other non-traumatic joint disorders (1 source) Pain in left knee; Translations: [Pain in joint, lower leg] 01-16-2023 Episodic Other upper respiratory infections (1 source) Acute frontal sinusitis; Translations: [Acute frontal sinusitis, unspecified] Episodic Otitis media and related conditions (1 source) Acute right otitis media; Translations: [Otitis media, unspecified, right ear] Episodic Residual codes; unclassified (1 source) Hypersomnia, unspecified; Translations: [Hypersomnia, unspecified] Onset: 10-04-2024 Chronic Residual codes; unclassified (13 sources) Tobacco use and exposure - finding; Translations: [Tobacco use] 12-30-2018 Episodic Residual codes; unclassified (3 sources) Personal history of other specified conditions; Translations: [History of seizure] 11-19-2023 Episodic Residual codes; unclassified (2 sources) Influenza vaccination declined; Translations: [Immunization not carried out because of patient refusal] 04-26-2024 Episodic Substance-related disorders (4 sources) Cigarette smoker ; Translations: [Nicotine dependence, cigarettes, uncomplicated] Onset: 12-25-2023 04-26-2024 Chronic Syncope (3 sources) Near syncope; Translations: [Syncope and collapse] 08-07-2023 Episodic Thyroid disorders (14 sources) Subclinical hypothyroidism; Translations: [Other specified hypothyroidism] Onset: 05-08-2024 12-30-2018 Chronic Unclassified (2 sources) M54.41 - Lumbago with sciatica, right side,M54.42 - Lumbago with sciatica, left side,G89.29 - Other chronic pain,G96.191 - Perineural cyst Unclassified (2 sources) M54.41 - Lumbago with sciatica, right side,M54.42 - Lumbago with sciatica, left side,G89.29 - Other chronic pain Unclassified (1 source) Perineural cyst; 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] Onset: 04-26-2024 Past or Other Problems Problem Classification Problem Date Documented Da te Episodic/Chronic Abdominal pain (4 sources) Abdominal pain; Translations: [Unspecified abdominal pain] Onset: 02-22-2024 12-04-2023 Episodic Conditions associated with dizziness or vertigo (11 sources) Dizziness; Translations: [Dizziness and giddiness] Onset: 12-25-2023 08-04-2023 Episodic Nonspecific chest pain (7 sources) Chest discomfort; Translations: [Other chest pain] Onset: 01-23-2024 07-16-2024 Episodic Other nervous system disorders (3 sources) Paresthesia of skin; Translations: [Paresthesia] Onset: 12-28-2023 Episodic Other nervous system disorders (1 source) Other disturbances of skin sensation; Translations: [Other disturbances of skin sensation] Onset: 12-25-2023 Episodic Other screening for suspected conditions (not mental disorders or infectious disease) (5 sources) Patient encounter status; Translations: [Encounter for screening mammogram for malignant neoplasm of breast] Onset: 04-26-2024 Episodic Spondylosis; intervertebral disc disorders; other back problems (5 sources) Chronic low back pain; Translations: [Lumbago with sciatica, right side] Onset: 04-26-2024 04-26-2024 Episodic Results Test Name Value Interpretation Reference Range Facility Internal Medicine Office Vis [facility] 10-03-2024 Internal Medicine Office Visit [facility] [address] [place] [address] OFFICE VISIT Date of Service: 10/04/24 MR#: [id number] Acct: [id number] Name: FAUSTINA GLASGOW Rep #: [id number] : 1975 Provider: Dr. Savita harris MD Age/Sex: 49/F Location: [facility] Status: Signed Intake Vital Signs 07/16/24 03:02 10/04/24 09:03 Height 5 ft 3 in 5 ft 3 in Weight: 223 lb BMI 39.4 BP 126/72 H Blood Pressure Location Lt brachial Position Sitting Respiration 16 Pulse 79 Pulse Source Monitor Temp 96.5 F L Temp Source Temporal Pulse Oximetry (%) 96 Oxygen Delivery Method room air Intake Visit Reasons: LOWER BACK PAIN Geriatric Social Worker Required: No Accompanied by: Is patient in pain?: Yes (right low back and RLE) Pain scale (1-10): 6 Allergies No Known Allergies Allergy (Verified 10/04/24 08:59) Medications ???Medication ???Instructions ???Recorded ???Confirmed ???Type marisabel.stocking,thigh ,reg,med #24 ea 08/25/23 04/26/24 Rx fluticasone propionate 50 1 spray intranasal QDAY 04/26/24 0 10/04/24 History mcg/actuation nasal spray,suspension (Flonase Allergy Relief) cyclobenzaprine 5 mg tablet 5 mg PO QHS PRN muscle spasm #14 0 10/04/24 10/04/24 Rx tabs gabapentin 400 mg capsule 400 mg PO BID 10/04/24 10/04/24 Hi story gabapentin 600 mg tablet 600 mg PO QHS 10/04/24 10/04/24 Hi story pantoprazole 40 mg tablet,delayed 40 mg PO QDAY #30 tabs 10/04/24 0 10/04/24 Rx release (Protonix) PFSH Medical History Seizure disorder Meningioma Meningioma Vitamin deficiency Gallstones Carpal tunnel syndrome Surgical History S/P cholecystectomy History of carpal tunnel surgery H/O: Family History Mother Diabetes Father Heart disease Myocardial infarction, Onset Age: 46 Social History (Updated 10/04/24 @ 09:[address] 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 pets and animals: Yes sexually active: Yes Smoking Status: Current every day smoker tobacco type: cigarettes Smoking packs per day: 1 Smoking cigarettes per day: 20.0 Years smoked: 35 Smoking pack-years: 35.00 Tobacco: How many years used: 35 Electronic Cigarette Use: not used quit status: considering quitting alcohol intake: never substance use type: does not use caffeine: Yes (4) Type: carbonated beverages what type of physical activity do you participate in: none seatbelt use: always do you feel safe at home: Yes HPI HPI Details: FAUSTINA GLASGOW, is a 49 F who presents to the office today for a follow up. She is due for some routine blood work. She still hasn't done her screening as previously ordered and would like new orders for them. She previously declined any immunizations. She does smoke and doesn't want to quit at this time. She doesn't need any refills today. She reports she is eating healthy for the most part. She reports her activity level remains limited due to back pain. The patient continues to follow with neurology for her dizziness, headaches and numbness/tingling. She states she still gets the dizziness, but states the tingling is doing better. She states she was referred to another neurologist at the [facility] who recommended doing an EEG for further assessment. She is taking her medication as prescribed but states the gabapentin makes her head feel 'full.' She reports she hasn't been having dizziness or headaches as often as she was, however, they have not completely resolved. She reports her palpitations have been doing better. She reports her abdominal pain/GERD have been doing alright as long as she takes her medication. She reports she will notice if she misses a dose. She reports she will often have symptoms of burning in her throat when she sleeping. She does try to stay sitting up for a while after eating, which does help some. She continues to have problems with her back. At her last office visit, she was referred to orthopedics and physical therapy. She reports that she did the physical therapy and didn't find it was helpful. She states she felt good in the pool, but states as soon as she got out, it seemed to worsen again. She reports she never heard anything about scheduling with the surgeon. She rates her pain 6/10 today. She is currently on gabapentin, but states it doesn't do anything for her pain. She states she has tried ibuprofen, but hasn't found that effective, either. The patient has concerns about 'aspirating' in her sleep. She reports sh (more content not included)... Normal [facility] 08-26-2024 [facility] Telephone (NEURAV) FAUSTINA GLASGOW ([id number]) 1975 F Date Time Provider Department 08/26/24 ALEXX MACE During your visit today, we recorded the following information about you: Isidra Johnson 08/26/2024 12:33 PM Signed Patient doesn't have MyChart and is requesting a call back with there most recent lab results. Patient has been identified by name and birthdate. Duration of symptoms: N/A Person calling: self Call patient at: at home [phone] (home) [phone] (work) [phone] (cell) Was an appointment scheduled: No Closing statement: Results or non-symptom based questions: Thank you for calling [facility], your call will be returned within the next business day. Alexx Bryant DO 08/26/2024 12:44 PM Signed Blood tests from 08/12/2024 including DARYL and immunofixation were both negative/normal. Hannah Patterson LPN 08/29/2024 10:49 AM Signed 08/29/2024 This nurse reached patient this morning and advised labs were in normal range. Patient verbalized understanding and no further questions at this time. Hannah Patterson LPN Allergies As of Date: 08/26/2024 (No Known Allergies) Date Reviewed: 08/12/2024 Reviewed by: Alexx Mace DO - Fully Assessed Reason for Visit: Results [95] Prescriptions as of 08/29/2024 - gabapentin (NEURONTIN) 600 mg tablet Take 1 tablet by mouth three times a day for 180 days. - PHENYLephrine-Acetamin ophen (TYLENOL SINUS HEADACHE) 5-325 mg tab Take 2 tablets by mouth as needed. - DULoxetine (CYMBALTA) 30 mg capsule Take 1 capsule by mouth once daily. Problem List As Of Date 08/26/2024 Noted Resolved Irregular periods [N92.6] 01/07/2012 Subclinical hypothyroidism [E03.8] Vitamin D insufficiency [E55.9] Tobacco use [Z72.0] Hypertriglyceridemia [E78.1] Encounter Status:Closed by HANNAH PATTERSON on 08/26/24 [facility] CNPNon 08-24-2024 CNPN Telephone (NEURAV) FAUSTINA GLASGOW ([id number]) 1975 F Date Time Provider Department 08/24/24 ALEXX MACE During your visit today, we recorded the following information about you: Hannah Patterson LPN 08/24/2024 7:29 PM Signed 08/24/2024 Records received from [facility] for review by he has reviews and initialed copies. The records have been sent to chart scanning. Hannah Patterson LPN Allergies As of Date: 08/24/2024 (No Known Allergies) Date Reviewed: 08/12/2024 Reviewed by: Alexx Mace DO - Fully Assessed Prescriptions as of 08/24/2024 - gabapentin (NEURONTIN) 600 mg tablet Take 1 tablet by mouth three times a day for 180 days. - PHENYLephrine-Acetamin ophen (TYLENOL SINUS HEADACHE) 5-325 mg tab Take 2 tablets by mouth as needed. - DULoxetine (CYMBALTA) 30 mg capsule Take 1 capsule by mouth once daily. Problem List As Of Date 08/24/2024 Noted Resolved Irregular periods [N92.6] 01/07/2012 Subclinical hypothyroidism [E03.8] Vitamin D insufficiency [E55.9] Tobacco use [Z72.0] Hypertriglyceridemia [E78.1] Encounter Status:Closed by HANNAH PATTERSON on 08/24/24 [facility] DARYL BY CHRISTY WITH REFLEXOrdere d By: Jennifer Brice on 08-16-2024 Interpretation and review of laboratory results Normal [facility] Nuclear Ab Ql (S) Negative Negative [facility] Comment on above: Anti-nuclear antibod y test is used as an aid in diagnosis of systemic autoimmune diseases. Where positive and clinically warranted, follow-up using disease-specific testing is recommended. Low positive titers are not uncommon with advanced age, certain chronic infections, and malignancies among others. Test methodology: Indirect fluorescence immunoassay (IFA) using HEp-2 cells. [facility] IMMUNOFIXATION SCREEN, SERUM Ordered By: Natalio Ohara on 08-16-2024 MPA Result No M protein is identified. No M protein is identified. [facility] Staff Review (MPA) Reviewed by Roshan Mata MD, Ph.D ([id number]) [facility] Ludivina 08-15-2024 CNPN Telephone (NEURAV) CAROLINAFAUSTINA Figueroa ([id number]) 1975 F Date Time Provider Department 08/15/24 ALEXX MACE During your visit today, we recorded the following information about you: Rose Best 08/15/2024 3:02 PM Signed Faustina is calling Alexx Mace DO today with concern regarding increased gabapentin Rx. Pt states at her appt on Thursday Dr. Mace recommended she increase gabapentin from 400mg to 600mg, however prescription was not sent to pharmacy. Please send to [facility] in [place]. Patient has been identified by name and birthdate. Duration of symptoms: N/A Person calling: self Call patient at: on cell [phone] (home) [phone] (work) [phone] (cell) Was an appointment scheduled: No Closing statement: Results or non-symptom based questions: Thank you for calling [facility], your call will be returned within the next business day. Alexx More DO 08/15/2024 9:23 PM Signed Prescription has been sent as requested. Note is still in progress. 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 Hannah Patterson LPN Allergies As of Date: 08/15/2024 (No Known Allergies) Date Reviewed: 08/12/2024 Reviewed by: Alexx Mace DO - Fully Assessed Reason for Visit: Medication Problem [65] Order(s):gabapentin (NEURONTIN) 600 mg tabletTake 1 tablet by mouth three times a day for 180 days.Disp: 90 tabletRfl: 5 Prescriptions as of 08/17/2024 - gabapentin (NEURONTIN) 600 mg tablet Take 1 tablet by mouth three times a day for 180 days. - PHENYLephrine-Acetamin ophen (TYLENOL SINUS HEADACHE) 5-325 mg tab Take 2 tablets by mouth as needed. - DULoxetine (CYMBALTA) 30 mg capsule Take 1 capsule by mouth once daily. Problem List As Of Date 08/15/2024 Noted Resolved Irregular periods [N92.6] 01/07/2012 Subclinical hypothyroidism [E03.8] Vitamin D insufficiency [E55.9] Tobacco use [Z72.0] Hypertriglyceridemia [E78.1] Prescriptions ordered this encounter Disp Refills Start End GABAPENTIN 600 MG TABLET 90 t* 5 08/15/2024 02/11/2025 Route: PO Sig: Take 1 tablet by mouth three times a day for 180 days. Encounter Status:Closed by HANNAH PATTERSON on 08/16/24 Normal [facility] DARYL BY IFA WITH REFLEXon Nuclear Ab Ql (S) Negative Normal Negative [facility] Comment on above: Order Comment: Speci men Type: BLOOD SPECIMEN Ordering Facility: [facility] Address: [facility] [place] [address] Result Comment: Anti -nuclear antibody test is used as an aid in diagnosis of systemic autoimmune diseases. Where positive and clinically warranted, follow-up using disease-specific testing is recommended. Low positive titers are not uncommon with advanced age, certain chronic infections, and malignancies among others. Test methodology: Indirect fluorescence immunoassay (IFA) using HEp-2 cells. Performed By: #### A YANI #### [facility] CLIA [id number] [address] [place] [address] [place] CNOVon 08-12-2024 CNOV Office Visit (NEURAV ) FAUSTINA GLASGOW ([id number]) 1975 F Date Time Provider Department 08/12/24 1:00 PM ALEXX MACE NEURAV During your visit today, we recorded the following information about you: Pulse Blood pressure 80/minute 132/54 Alexx Mace, DO 08/21/2024 5:27 PM Signed [facility] Neurologic [place] New Patient Consultation August 12, 2024 ++ Clarified with her that she was scheduled with myself in general neurology not in the [facility], she still wishes to be seen++ HPI: Ms. Glasgow, who is accompanied by her sister with her permission, presents today secondary to issues of paresthesia at the request of Dr Kary Galindo. Also noted is referral for both neurology and neurosurgery over opinion on meningioma. She states that in 07/2023 she was at work when she had a sudden feeling of heart racing and hot tingles throughout my whole body. The episode lasted seconds but were recurrent with position changes. Each episode could last a minute or so. She had her son take her to the emergency room 08/04/[address] brain performed noting a small mass was found and followed up with MRI brain where small frontal mass noted thought consistent with meningioma. She was told that it was thought she was having an anxiety attack as to cause of her symptoms. She was referred to neurology but not able to be seen for some time, eventually seeing Dr Galindo 09/16/2023 who performed EEG 10/2023 which showed frontal sharps waves greater on the right which lead him to have her start levetiracetam which made her feel fuzzy and my head is full. This was stopped and she was tried on other seizure medication (zonisamide and briviact per chart) she cannot name but states these gave her similar feelings. She was eventually started on gabapentin at 300 mg three times a day and increased quickly to 400 mg three times a day. She feels it has lessened the intensity of palpitations and intensity of the tingling sensations. If she forget's a dose she can tell and there is a wearing off between doses if taken too far apart. She notes other medications tried make her have a feeling of fullness. She felt that she laid in bed for 6 months until gabapentin was started. Since starting the gabapentin she feels it has helped the degree and severity of pains she has including chest or facial pains.. In looking at something she feels there are flashes/spots which can be at any time. At the time of these instances she is very tired afterwards. She has also had instances of her leg shaking/tremoring which occurs if on her feet for length of time. In the tingling in both sides of the entire body without loss of consciousness. She states she hydrates well when was working. She states she is not eating regularly. She eats once a day on average, a smaller meal. She eats meats. She notes at times she craves salt. She states she has had cardiac testing including Zio patch for 3 days, echocardiogram, carotid duplex, and stress test and was told it was all negative. There is discussion over tilt table testing but has not been performed yet. She notes her only medications are gabapentin, flonase and reflux medication. She had been on lexapro but gave her increased tremors and leg shakes. She cannot recall being on duloxetine but thinks it may have made her head cloudy, Other treatment included physical therapy in 05/2024 including water therapy. She felt good in therapy but once out of water she would begin to have lower back pains. She has home exercises she admits she is poor in performing. She denies history of seizures even in childhood. She denies history of head injury or stroke. She denies blackouts or episodes of lost time. She states she had EMG and only was told it was normal. She states this involved the lower extremities and lower back. PAST MEDICAL HISTORY Diagnosis Date Hypertriglyceridemia Myalgia Obesity (BMI 30-39.9) Subclinical hypothyroidism Tobacco use Vitamin D insufficiency PAST SURGICAL HISTORY Procedure Laterality Date CARPAL TUNNEL Right 12/2017 DELIVERY ONLY x1 CHOLECYSTECTOMY age 20 LIGATE FALLOPIAN TUBE Current Outpatient Medications on File Prior to Visit Medication Sig PHENYLephrine-Acetamin ophen (TYLENOL SINUS HEADACHE) 5-325 mg tab Take 2 tablets by mouth as needed. DULoxetine (CYMBALTA) 30 mg capsule Take 1 capsule by mouth once daily. No current facility-administered medications on file prior to visit. Social History Tobacco Use Smoking status: Every Day Current packs/day: 1.00 Average packs/day: 1 pack/day for 30.0 years (30.0 ttl pk-yrs) Types: Cigarettes Smokeless tobacco: Never Substance Use Topics Alcohol use: Yes Comment: rarely, once a year Drug use: No ALLERGIES No Known Allergies Review of Sys (more content not included)... Normal [facility] IMMUNOFIXATION SCREEN, SERUM on 08-12-2024 MPA RESULT No M protein is identified. Normal No M protein is identified. [facility] Comment on above: Order Comment: Speci jose luis Type: BLOOD SPECIMEN Ordering Facility: [facility] Address: [address] [place] [address] Performed By: #### I FESC #### [facility] CLIA [id number] [address] [place] [address] [place] STAFF REVIEW (MPA) Reviewed by Roshan Mata MD, Ph.D ([id number]) Normal [facility] Comment on above: Order Comment: Cocoi men Type: BLOOD SPECIMEN Ordering Facility: [facility] Address: [address] [place] [address] Performed By: #### I FESC #### [facility] CLIA [id number] [address] [place], [place] [id number] [place] 12 Lead EKGon 07-16-2024 12 Lead EKG [facility] Cardiovascular Services [address] [place] [address] 12 Lead EKG 07/16/24 0311 MR#: [id number] Acct: [id number] Name: FAUSTINA GLASGOW Rep #: [id number] : 1975 49 From: Natalio Brice MD Attending Dr: Status: DEP ER Ordering Dr: Adal Dempsey MD Date: 07/16/24 Location: ED Sex: F C Admitted: Test Reason : DYSRHYTHMIA Blood Pressure : */* mmHG Vent. Rate : 97 BPM Atrial Rate : 97 BPM P-R Int : 142 ms QRS Dur : 82 ms QT Int : 352 ms P-R-T Axes : 57 45 39 degrees QTcB Int : 447 ms Normal sinus rhythm Normal ECG Confirmed by Natalio Brice ([id number]), international editorial producer BIGG MORILLO ([id number]) on 07/18/2024 9:02:33 AM Referred By: AR Confirmed By: Natalio Brice 07/18/24901 Date Natalio Brice MD CC: Dr. Adal Dempsey MD; Dr. Savita Ahn MD Signed Normal [facility] Absolute lymphocyte countOrd ered By: Adal Dempsey on 07-16-2024 Lymphocytes Auto (Unsp spec) [#/Vol] 3.70 10*3/uL 0.83-4.51 [facility] Absolute neutrophil countOrd ered By: Adal Dempsey on 07-16-2024 Neutrophils (Bld) [#/Vol] 5.5 10*3/uL 2.0-7.7 [facility] Anion gap in Serum or Plasma Ordered By: Adal Dempsey on 07-16-2024 Anion gap [Moles/Vol] 13 mmol/L 07-21 [facility] Automated lymphocyte count a s percentage of total leukocytesOrdered By: Adal Dempsey on 07-16-2024 Lymphocytes/100 WBC Auto (Unsp spec) 37.9 % - [facility] BUN/creatinine ratioOrdered By: Adal Dempsey on 07-16-2024 Urea nitrogen/Creatinine [Mass ratio] 9.8 mg/mg Low 12-26 [facility] Basic Metabolic Profile (BMP )on 07-16-2024 BUN/CRE 9.8 RATIO Low 12-26 [facility] Comment on above: Performed By: #### L 100.0100, L500.2500, L501.4021 ####[facility] [address] [place], [address] Calcium [Mass/Vol] 9.2 mg/dL Normal 7.6-11.0 [facility] Comment on above: Performed By: #### L 100.0100, L500.2500, L501.4021 ####[facility] [address] [place], [address] Chloride [Moles/Vol] 103 mmol/L Normal 98-108 [facility] Comment on above: Performed By: #### L 100.0100, L500.2500, L501.4021 ####[facility] [address] [place], [address] CO2 [Moles/Vol] 21.9 mmol/L Normal 21.0-32.0 [facility] Comment on above: Performed By: #### L 100.0100, L500.2500, L501.4021 ####[facility] [address] [place], [address] Creatinine [Mass/Vol] 0.91 mg/dL Normal 0.70-1.20 [facility] Comment on above: Performed By: #### L 100.0100, L500.2500, L501.4021 ####[facility] [address] [place], [address] ECRCL 82.99 ml/min Normal 50-250 [facility] Comment on above: Performed By: #### L 100.0100, L500.2500, L501.4021 ####[facility] [address] [place], [address] GAP 13 Normal 5-15 [facility] Comment on above: Performed By: #### L 100.0100, L500.2500, L501.4021 ####[facility] [address] [place], [address] GFR/1.73 sq M.predicted among non-blacks MDRD (S/P/Bld) [Vol rate/Area] 77 mL/min/{1.73_m2} Normal >60 [facility] Comment on above: Result Comment: mL/m in/1.73m2 CKD-EPI Creatinine Equation (2020) Performed By: #### L 100.0100, L500.2500, L501.4021 ####[facility] [address] [place], [address] Glucose [Mass/Vol] 203 mg/dL High 70-99 [facility] Comment on above: Performed By: #### L 100.0100, L500.2500, L501.4021 ####[facility] [address] [place], [address] Potassium [Moles/Vol] 4.0 mmol/L Normal 3.3-5.1 [facility] Comment on above: Performed By: #### L 100.0100, L500.2500, L501.4021 ####[facility] [address] [place], [address] Sodium [Moles/Vol] 138 mmol/L Normal 133-145 [facility] Comment on above: Performed By: #### L 100.0100, L500.2500, L501.4021 ####[facility] [address] [place], [address] Urea nitrogen [Mass/Vol] 9 mg/dL Normal 4-19 [facility] Comment on above: Performed By: #### L 100.0100, L500.2500, L501.4021 ####[facility] [address] [place], [address] Basophil percentageOrdered B y: Adal Dempsey on 07-16-2024 Basophils/100 WBC (Bld) 0.4 % 0-1 [facility] CBC W/Diff, Automatedon 05-1 0-2025 Absolute Lymph 3.70 X10 3/uL Normal 0.83-4.51 [facility] Comment on above: Performed By: #### L 100.0100, L500.2500, L501.4021 ####[facility] [address] [place], [address] Absolute Neut 5.5 X10 3/uL Normal 2.0-7.7 [facility] Comment on above: Performed By: #### L 100.0100, L500.2500, L501.4021 ####[facility] [address] [place], [address] Basophils/100 WBC (Bld) 0.4 % Normal 0-1 [facility] Comment on above: Performed By: #### L 100.0100, L500.2500, L501.4021 ####[facility] [address] [place], [address] Eosinophils/100 WBC (Bld) 1.3 % Normal 0-5 [facility] Comment on above: Performed By: #### L 100.0100, L500.2500, L501.4021 ####[facility] [address] [place], [address] Erythrocyte distribution width (RBC) [Ratio] 14.6 % Normal 11.6-14.6 [facility] Comment on above: Performed By: #### L 100.0100, L500.2500, L501.4021 ####[facility] [address] [place], [address] Hematocrit (Bld) [Volume fraction] 46.0 % Normal 37-47 [facility] Comment on above: Performed By: #### L 100.0100, L500.2500, L501.4021 ####[facility] [address] [place], [address] Hemoglobin (Bld) [Mass/Vol] 15.2 g/dL High 12.0-15.0 [facility] Comment on above: Performed By: #### L 100.0100, L500.2500, L501.4021 ####[facility] [address] [place], [address] IG% 0.600 Normal 0.0-0.9 [facility] Comment on above: Result Comment: IG% - Immature Granulocytes (promyelocytes, myelocytes and metamyelocytes) > 1% indicates that a LEFT SHIFT is Present. Performed By: #### L 100.0100, L500.2500, L501.4021 ####[facility] [address] [place], [address] Lymphocytes/100 WBC (Bld) 37.9 % Normal 19-41 [facility] Comment on above: Performed By: #### L 100.0100, L500.2500, L501.4021 ####[facility] [address] [place], [address] MCH (RBC) [Entitic mass] 27.6 pg Normal 27.0-32.0 [facility] Comment on above: Performed By: #### L 100.0100, L500.2500, L501.4021 ####[facility] [address] [place], [address] MCHC (RBC) [Mass/Vol] 33.0 g/dL Normal 32-36 [facility] Comment on above: Performed By: #### L 100.0100, L500.2500, L501.4021 ####[facility] [address] [place], [address] MCV (RBC) [Entitic vol] 83.5 fL Normal 81-99 [facility] Comment on above: Performed By: #### L 100.0100, L500.2500, L501.4021 ####[facility] [address] [place], [address] Monocytes/100 WBC (Bld) 3.6 % Normal 0-10 [facility] Comment on above: Performed By: #### L 100.0100, L500.2500, L501.4021 ####[facility] [address] [place], [address] Neutrophils/100 WBC (Bld) 56.2 % Normal 47-70 [facility] Comment on above: Performed By: #### L 100.0100, L500.2500, L501.4021 ####[facility] [address] [place], [address] Nucleated RBC (Bld) [#/Vol] 0 10*3/uL Normal 0-5 [facility] Comment on above: Performed By: #### L 100.0100, L500.2500, L501.4021 ####[facility] [address] [place], [address] Platelet mean volume (Bld) [Entitic vol] 10.8 fL Normal 6.2-12.0 [facility] Comment on above: Performed By: #### L 100.0100, L500.2500, L501.4021 ####[facility] [address] [place], [address] Platelets (Bld) [#/Vol] 258 10*3/uL Normal 150-450 [facility] Comment on above: Performed By: #### L 100.0100, L500.2500, L501.4021 ####[facility] [address] [place], [address] RBC (Bld) [#/Vol] 5.51 10*6/uL High 4.2-5.4 [facility] Comment on above: Performed By: #### L 100.0100, L500.2500, L501.4021 ####[facility] [address] [place], [address] RDW SD 44.2 fl High 35.1-43.9 [facility] Comment on above: Performed By: #### L 100.0100, L500.2500, L501.4021 ####[facility] [address] [place], [address] WBC (Bld) [#/Vol] 9.8 10*3/uL Normal 4.4-11.0 [facility] Comment on above: Performed By: #### L 100.0100, L500.2500, L501.4021 ####[facility] [address] [place], [address] Carbon dioxide, total [Moles /volume] in Central venous bloodOrdered By: Adal Dempsey on 07-16-2024 CO2 [Moles/Vol] 21.9 mmol/L 21.0-32.0 [facility] Chest 1 View (Portable)on Chest 1 View (Portable) [facility] Imaging Services [address] [place] [address] Chest 1 View (Portable) MR#: [id number] Acct: [id number] Name: FAUSTINA GLASGOW Rep #: [id number] : 1975 F 49 From: Nick Obrien MD PCP: Dr. Savita Ahn MD Status: PRE ER Study: Chest 1 View (Portable) Date of Exam: 07/16/24 Exam# [id number] Ordering Dr: Adal Dempsey MD PROCEDURE: CHEST 1 VIEW (PORTABLE) 07/16/2024 REASON FOR EXAM: CHEST PAIN TECHNIQUE: Frontal view of the chest. COMPARISON: 01/01/2024 FINDINGS: The lungs appear clear. Pulmonary vascularity appears within limits. No pleural effusion. Cardiac and mediastinal contours appear within limits. The visualized osseous structures appear within limits. RAD/Chest 1 View (Portable) IMPRESSION: No evidence of acute disease. Reading Location: [id number] CC: Dr. Adal Dempsey MD; Dr. Savita Ahn MD Data Governance Consultant: Signed Normal [facility] Chloride assayOrdered By: Kee Dempsey on 07-16-2024 Chloride [Moles/Vol] 103 mmol/L 98-108 [facility] Emergency Department Summary on 07-16-2024 Emergency Department Summary [facility] Medical Records Department [address] [place] [address] Emergency Department Summary 07/16/24 MR#: [id number] Acct: [id number] Name: FAUSTINA GLASGOW Rep #: [id number] : 1975 49 From: Adal Dempsey MD PCP: Dr. Savita Ahn MD Status:REG ER Location: ED HPI History of Present Illness Chief Complaint: Palpitations Narrative Narrative: 49-year-old female presents with her daughter because of chest heaviness that she has had for the last few days. She states has been consistent and constant. She has not had any fevers or chills, no cough, no nausea or vomiting, no diaphoresis. She states that sometimes she gets winded and short of breath when she exerts herself. She describes it more as a chest heaviness, but sometimes can be sharp and stabbing more towards the left side and towards the middle of her chest. She does have past medical history of thyroid problems which she states that her primary care provider may have overcorrected. She also sees a neurologist because she has tingling sensation throughout her body. She takes gabapentin 400 mg 3 times a day for this. She states that she has had multiple studies done on her heart including echocardiogram and stress test. She states she has had this heaviness previously, but not as severe and constant over the last few days. She is a smoker. [facility] Medical History Seizure disorder Meningioma Meningioma Vitamin deficiency Gallstones Carpal tunnel syndrome Home Medications ???Medication ???Instructions ???Recorded ???Last Taken ???Type marisabel.stocking,thigh ,reg,med #24 ea 08/25/23 Unknown Rx fluticasone propionate 50 1 spray intranasal QDAY 04/26/24 U nknown History mcg/actuation nasal spray,suspension (Flonase Allergy Relief) gabapentin 400 mg capsule 400 mg PO TID 04/26/24 Unknown His tory esomeprazole magnesium 40 mg 40 mg PO QDAY #90 caps 05/19/24 Un known Rx capsule,delayed release Allergy/AdvReac Type Severity Reaction Status Date / Time No Known Allergies Allergy Verified 04/26/24 07:57 Family History Mother Diabetes Father Heart disease Myocardial infarction, Onset Age: 46 Surgical History S/P cholecystectomy History of carpal tunnel surgery H/O: Social History adopted: No household members: spouse, family and children housing: house number of children: 5 current occupational status: employed current occupation: [employer] pets and animals: Yes sexually active: Yes Smoking Status: Current every day smoker tobacco type: cigarettes Tobacco: How many years used: 35 Electronic Cigarette Use: not used quit status: considering quitting alcohol intake: never substance use type: does not use caffeine: Yes (4) Type: carbonated beverages what type of physical activity do you participate in: none seatbelt use: always do you feel safe at home: Yes ROS ROS ED ROS Narrative Constitutional: No fever, no chills. HEENT: No sore throat. No neck pain. No loss of vision. No rhinorrhea. Cardiovascular: Positive chest heaviness and also stabbing chest pain. Occasional palpitations. No pedal edema. Respiratory: No cough, intermittent shortness of breath. Abdominal: No abdominal pain. No nausea. No vomiting. Neurologic: No headaches. No dizziness. No lightheadedness. Psychiatric: Positive depression. No anxiety. EXAM Physical Exam Narrative Exam Narrative: Afebrile. Vital signs noted. Nontoxic-appearing. Cardiovascular examination reveals a regular rate and rhythm. Lungs are clear to auscultation bilaterally. Abdomen is soft, nontender without guarding or rebound. Positive bowel sounds. Neurological examination is nonfocal and nonlateralizing. No pedal edema. Const Vital Signs: 07/16/24 03:02 07/16/24 03:02 07/16/24 03:17 Temperature 98.6 F Temperature Source Oral Pulse Rate 97 Respiratory Rate 16 Respiratory Effort Normal Non-Labored Blood Pressure 157/63 H Blood Pressure Mean 94 Pulse Ox 98 98 Oxygen Delivery Method Room Air Room Air 07/16/24 04:02 07/16/24 05:00 Temperature Temperature Source Pulse Rate 86 71 Respiratory Rate 17 16 Respiratory Effort Blood Pressure 134/54 H 139/56 H Blood Pressure Mean 80 83 Pulse Ox 98 98 Oxygen Delivery Method Room Air Room Air Heart Score History: Slightly/Non-Suspiciou s ECG: Normal Age: >45 - <65 years Risk Factors: 1 or 2 Risk Factors Troponin: Score: 2 MDM MDM MDM Narrative Medical decision making narrative: Differential diagnosis includes ACS versus pneumonia versu (more content not included)... Normal [facility] Eosinophil percentageOrdered By: Adal Dempsey on 07-16-2024 Eosinophils/100 WBC (Bld) 1.3 % 0-5 [facility] Erythrocyte distribution wid th ratioOrdered By: Adal Dempsey on 07-16-2024 Erythrocyte distribution width (RBC) [Ratio] 14.6 % 11.6-14.6 [facility] Erythrocyte distribution wid th standard deviationOrdered By: Adal Dempsey on 07-16-2024 Erythrocyte distribution width (RBC) [Ratio] 44.2 fl High 35.1-43.9 [facility] Glomerular filtration rate ( GFR) estimation/1.73 sq m using serum, plasma, or whole bOrdered By: Adal Dempsey on 07-16-2024 GFR/1.73 sq M.predicted among non-blacks MDRD (S/P/Bld) [Vol rate/Area] 77 mL/min/{1.73_m2} >60 [facility] Comment on above: mL/min/1.73m2 CKD-EP I Creatinine Equation (2020) Hematocrit Auto (Bld) [Volum e fraction]Ordered By: Adal Dempsey on 07-16-2024 Hematocrit (Bld) [Volume fraction] 46.0 % 37-47 [facility] Hemoglobin measurementOrdere d By: Adal Dempsey on 07-16-2024 Hemoglobin (Bld) [Mass/Vol] 15.2 g/dL High 12.0-15.0 [facility] Immature granulocytes/100 WB C Auto (Bld)Ordered By: Adal Dempsey on 07-16-2024 Immature granulocytes/100 WBC (Bld) 0.600 % 0.0-0.9 [facility] Comment on above: IG% - Immature Granu locytes (promyelocytes, myelocytes and metamyelocytes) > 1% indicates that a LEFT SHIFT is Present. L499.0042on 07-16-2024 Trop T High Sen < 6 Normal <=14 [facility] Comment on above: Performed By: #### L 499.0042 ####[facility] [address] [place], [address] L501.4021on 07-16-2024 Trop T High Sen 6 ng/L Normal <=14 [facility] Comment on above: Performed By: #### L 100.0100, L500.2500, L501.4021 ####[facility] [address] [place], [address] MCV (mean corpuscular volume ) determinationOrdered By: Adal Dempsey on 07-16-2024 MCV (RBC) [Entitic vol] 83.5 fL 81-99 [facility] Mean corpuscular hemoglobin (MCH) determinationOrdered By: Adal Dempsey on 07-16-2024 MCH (RBC) [Entitic mass] 27.6 pg 27.0-32.0 [facility] Mean corpuscular hemoglobin concentration (MCHC) determinationOrdered By: Adal Dempsey on 07-16-2024 MCHC (RBC) [Mass/Vol] 33.0 g/dL 32-36 [facility] Mean platelet volume determi nationOrdered By: Adal Dempsey on 07-16-2024 Platelet mean volume (Bld) [Entitic vol] 10.8 fL 6.2-12.0 [facility] Monocyte percentageOrdered B y: Adal Dempsey on 07-16-2024 Monocytes/100 WBC (Bld) 3.6 % 0-10 [facility] Neutrophil percentageOrdered By: Adal Dempsey on 07-16-2024 Neutrophils/100 WBC (Bld) 56.2 % 47-70 [facility] Nucleated red blood cell per centageOrdered By: Adal Dempsey on 05-10-2025 Nucleated RBC/100 WBC (Bld) [Ratio] 0 % 0-5 [facility] Platelet countOrdered By: Kee Dempsey on 07-16-2024 Platelets (Bld) [#/Vol] 258 10*3/uL 150-450 [facility] Potassium measurement (mass/ volume)Ordered By: Adal Dempsey on 07-16-2024 Potassium (Unsp spec) [Mass/Vol] 4.0 mmol/L 3.3-5.1 [facility] RBC Auto (Bld) [#/Vol]Ordere d By: Adal Dempsey on 07-16-2024 RBC (Bld) [#/Vol] 5.51 10*6/uL High 4.2-5.4 [facility] Serum creatinine measurement (mass/volume)Ordered By: Adal Dempsey on 07-16-2024 Creatinine [Mass/Vol] 0.91 mg/dL 0.70-1.20 [facility] Serum glucose measurement (m ass/volume)Ordered By: Adal Dempsey on 07-16-2024 Glucose [Mass/Vol] 203 mg/dL High 70-99 [facility] Serum or plasma calcium george urement (mass/volume)Ordered By: Adal Dempsey on 07-16-2024 Calcium [Mass/Vol] 9.2 mg/dL 7.6-11.0 [facility] Serum or plasma urea nitroge n measurement (mass/volume)Ordered By: Adal Dempsey on 07-16-2024 Urea nitrogen [Mass/Vol] 9 mg/dL 4-19 [facility] Sodium levelOrdered By: Adal Dempsey on 07-16-2024 Sodium [Moles/Vol] 138 mmol/L 133-145 [facility] Troponin T.cardiac [Mass/vol ume] in Serum or Plasma by High sensitivity methodOrdered By: Adal Dempsey on 07-16-2024 Troponin T.cardiac High sensitivity method [Mass/Vol] < 6 ng/L <14 [facility] Troponin T.cardiac High sensitivity method [Mass/Vol] 6 ng/L <14 [facility] White blood cell (WBC) count Ordered By: Adal Dempsey on 07-16-2024 WBC (Bld) [#/Vol] 9.8 10*3/uL 4.4-11.0 [facility] PT D/C Summary (1)on 025 PT D/C Summary (1) [facility] [address] [place] [address] / REHABILITATION SERVICES DISCHARGE SUMMARY MR#: [id number] Acct: [id number] Name: FAUSTINA GLASGOW Rep #: [id number] : 1975 49 From: Fredo Sepulveda DPT, OCS, CSCS Referring Dr.: Dr. Savita Ahn MD Status: R EG RCR Insurance: [facility] SELF PAY INSURANCE Discharge Summary D/C summary: It has been my pleasure to treat FAUSTINA GLASGOW referred by Dr. Savita Ahn MD, with the diagnosis of LBP with B sciatica for a total of 10 visit(s). Discharge Date: 06/03/24 Please see the following information for a summary of their discharge status. Subjective Subjective: Feels pretty good in the pool and better for the most part when out. I have my days though. Some days better than others. Walking seems to make R leg pain worse. Walking to back of [facility] is a problem. HEP going well. Sleep is not great. pain management is next management. Pain LBP: Pain Intensity (Out of 10): 7 Bilat hips: Pain Intensity (Out of 10): 8 L calf: Pain Intensity (Out of 10): Unrated Overall Improvement % Improvement: 3 Objective Objective/Function: Walking gingerly with R antalgia today and shor t L step length. , R hip ROM IR and er very painful and limtied compared to L as is flexion. + R OLAMIDE and FADDIR. Lumbar ROM mod limtied in extension with increaseed R LBP, B SB are ok, flexion is limited and painful R posteerior hip. Pt not improving in ROM or subjeective and susupicious for hip involvement also which I would clear before focussing on back pain management Goals Goal 1:: Pain in LB and legs 3/10 at worst adn 75% improved Goal Progress: Not Progressing Goal 2:: Have minimal movement in pelvis and only min deficits in lumbar ROM without incrasd pain past 2/10 Goal Progress: Not Progressing Goal 3:: I appropriate himee, gym, pool ex to limit future problems. Goal Progress: Goal Met Goal 4:: sleep without interruption from LBP Goal Progress: Not Progressing Goal 5:: oswestry score5 or better Goal Progress: Not Progressing Goal 6:: Walk without hsitation with reciprocal non stiff movements into Pt clinic Goal Progress: Not Progressing Plan Plan: d/c, pt to contact doctor regarding lack of progress and next step, continue HEP in the meantime. D/C Information Discharge Comments: Pt not progressing with pain and wishes to take next step. d/c sentence: If there are questions or concerns regarding this patient's physical therapy, please feel free to call me at [phone]. Thank you for the referral of this patient. Sincerely, Fredo Sepulveda, DPT, OCS, CSCS Balance/Gait/Functiona l tests Balance/Special Test Scores Oswestry Low Back Score: 17 Improvement % Improvement: 3 07/14/24 1604 CC: Dr. Savita Ahn MD EBG Signed Normal [facility] 06-25-2024 AGNA-1 Negative Normal Negative [facility] Comment on above: Result Comment: This test was developed and its performance characteristics determined by [facility]. It has not been cleared or approved by the Food and Drug Administration. Performed By: #### M DW, GFR, ANEU, TROPHS, CBC, BMP, ADIFF #### [place] [id number] [place], [place] [address] Amphiphysin Ab Negative Normal Negative [facility] Comment on above: Result Comment: This test was developed and its performance characteristics determined by [facility]. It has not been cleared or approved by the Food and Drug Administration. Performed By: #### M DW, GFR, ANEU, TROPHS, CBC, BMP, ADIFF #### [facility] [address] [place], [place] [address] Antineuronal nuclear Ab Type 3 Negative Normal Negative [facility] Comment on above: Result Comment: This test was developed and its performance characteristics determined by [facility]. It has not been cleared or approved by the Food and Drug Administration. Performed By: #### M DW, GFR, ANEU, TROPHS, CBC, BMP, ADIFF #### [place] [address] CASPR2 Ab IFA Negative Normal Negative [facility] Comment on above: Result Comment: This test was developed and its performance characteristics determined by [facility]. It has not been cleared or approved by the Food and Drug Administration. Performed By: #### M DW, GFR, ANEU, TROPHS, CBC, BMP, ADIFF #### [place] [address] CRMP-5 IgG Negative Normal Negative [facility] Comment on above: Result Comment: This test was developed and its performance characteristics determined by [facility]. It has not been cleared or approved by the Food and Drug Administration. Performed By: #### M DW, GFR, ANEU, TROPHS, CBC, BMP, ADIFF #### [place] [address] Hu Ab IFA Negative Normal Negative [facility] Comment on above: Result Comment: This test was developed and its performance characteristics determined by [facility]. It has not been cleared or approved by the Food and Drug Administration. Performed By: #### M DW, GFR, ANEU, TROPHS, CBC, BMP, ADIFF #### [place] [address] Interp Paraneo Negative Normal Negative [facility] Comment on above: Result Comment: A ne gative paraneoplastic autoantibody result does not rule out all clinically relevant antibodies. If indicated, a phenotype-specific profile (For example, Encephalopathy, dementia, myelopathy, or axonal neuropathy) should be considered. Performed By: #### M DW, GFR, ANEU, TROPHS, CBC, BMP, ADIFF #### [place] [address] LGI1 Ab CBA IFA Negative Normal Negative [facility] Comment on above: Result Comment: This test was developed and its performance characteristics determined by [facility]. It has not been cleared or approved by the Food and Drug Administration. Performed At: [address] [id number] Richar Leyva MD Ph:[phone] Performed By: #### M DW, GFR, ANEU, TROPHS, CBC, BMP, ADIFF #### [place] [address] Purkinje Cell Cyto Ab Type 2 Negative Normal Negative [facility] Comment on above: Result Comment: This test was developed and its performance characteristics determined by [facility]. It has not been cleared or approved by the Food and Drug Administration. Performed By: #### M DW, GFR, ANEU, TROPHS, CBC, BMP, ADIFF #### [place] [address] Purkinje Cell Cyto Ab Type Tr Negative Normal Negative [facility] Comment on above: Result Comment: This test was developed and its performance characteristics determined by [facility]. It has not been cleared or approved by the Food and Drug Administration. Performed By: #### M DW, GFR, ANEU, TROPHS, CBC, BMP, ADIFF #### [place] [address] Ri Ab IFA Negative Normal Negative [facility] Comment on above: Result Comment: This test was developed and its performance characteristics determined by [facility]. It has not been cleared or approved by the Food and Drug Administration. Performed By: #### M DW, GFR, ANEU, TROPHS, CBC, BMP, ADIFF #### [place] [address] VGCC Ab <1.0 Normal 0.0-30.0 [facility] Comment on above: Performed By: #### M DW, GFR, ANEU, TROPHS, CBC, BMP, ADIFF #### [place] [address] Yo Ab IFA Negative Normal Negative [facility] Comment on above: Result Comment: This test was developed and its performance characteristics determined by [facility]. It has not been cleared or approved by the Food and Drug Administration. Performed By: #### M DW, GFR, ANEU, TROPHS, CBC, BMP, ADIFF #### [place] [address] ANCAon 06-13-2024 C-ANCA 2.1 Normal 0.0-20.0 [facility] Comment on above: Result Comment: NEW REFERENCE RANGES FOR ANCA BY EIA: NEGATIVE <= 20 UNITS WEAK POSITIVE 21 - 30 UNITS MOD. TO STRONG POSITIVE > 30 UNITS A positive result indicates the presence of PA-3 antibodies and suggests the possibility of certain autoimmune vasculitides such as Diana???s granulomatosis. A negative result indicates no PA-3 antibody or levels below the negative cut-off of the assay. These results were obtained with the [employer] QUANTA Lite PA-3 IgG JEFF. PA-3 values obtained with different manufacturers??? assay methods may not be used interchangeably. The magnitude of the reported IgG level cannot be correlated to an endpoint titer. Results of this assay should be used in conjunction with clinical findings. Performed By: #### F OL, HCV1, HBSAG, RF, ANCA, B12 ####[place] [address]#### 879190, 504206, ANAIFS, 445631, 412716, 348299 ####[place] [address] [place] [address] Cytoplasmic Neutro. Ab. See Below Normal [facility] Comment on above: Performed By: #### F OL, HCV1, HBSAG, RF, ANCA, B12 ####[place] [address]#### [id number], 601749, ANAIFS, 851314, 253150, 189664 ####[place] [address] [place], [place] [address] P-ANCA 1.0 Normal 0.0-20.0 [facility] Comment on above: Result Comment: REFE RENCE RANGES FOR ANCA BY EIA: NEGATIVE <= 20 UNITS WEAK POSITIVE 21 - 30 UNITS MOD. TO STRONG POSITIVE > 30 UNITS A positive result indicates the presence of MPO antibodies and suggests the possibility of certain autoimmune vasculitides such as microscopic polyarteritis, and crescentic glomerulonephritis. A negative result indicates no MPO antibody or levels below the negative cut-off of the assay. These results were obtained with the [employer] QUANTA Lite MPO IgG JEFF. MPO values obtained with different manufacturers??? assay methods may not be used interchangeably. The magnitude of the reported IgG level cannot be correlated to an endpoint titer. Results of this assay should be used in conjunction with clinical findings. Performed By: #### F OL, HCV1, HBSAG, RF, ANCA, B12 ####[place] [address]#### [id number], 889825, ANAIFS, 287956, 433691, 024433 ####[address] [place], [place] [address] CUSon 06-11-2024 Copper Lvl 79 UG/DL Low 80-158 [facility] Comment on above: Result Comment: This test was developed and its performance characteristics determined by [employer]. It has not been cleared or approved by the Food and Drug Administration. Detection Limit = 5 Performed At: [address] [id number] Richar Leyva MD Ph:[phone] Performed By: #### F OL, HCV1, HBSAG, RF, ANCA, B12 ####[place] [address]#### 424774, 343944, ANAIFS, 828772, 648243, 837743 ####[facility] [place], [place] [address] CMGG4es 06-10-2024 Vitamin B6 Lvl 4.5 UG/L Normal 3.4-65.2 [facility] Comment on above: Result Comment: This test was developed and its performance characteristics determined by [employer]. It has not been cleared or approved by the Food and Drug Administration. Deficiency: <3.4 Marginal: 3.4 - 5.1 Adequate: >5.1 Performed At: [address] [id number] Rcihar Leyva MD Ph:[phone] Performed By: #### F OL, HCV1, HBSAG, RF, ANCA, B12 ####[place] [address]#### 799054, 196739, ANAIFS, 420443, 208490, 119461 ####[place] [address] [place] [id number] ANAIFSon 06-09-2024 Antinuclear Ab Pattern Cytoplasmic fibri llar filamentous Normal [facility] Comment on above: Result Comment: Perf ormed By: [facility] [address] [place] [address] Physician/Ophthalmologist: Dave Diaz III, M.D. CLIA#: [id number] Performed By: #### F OL, HCV1, HBSAG, RF, ANCA, B12 ####[place] [address]#### 592835, 539319, ANAIFS, 145247, 170995, 061815 ####[place] [address] [place] [address] Antinuclear Ab Screen Positive Abnormal Negative [facility] Comment on above: Result Comment: Anti -nuclear antibody test is used as an aid in diagnosis of systemic autoimmune diseases. Where positive and clinically warranted, follow-up using disease-specific testing is recommended. Low positive titers are not uncommon with advanced age, certain chronic infections, and malignancies among others. Test methodology: Indirect fluorescence immunoassay (IFA) using HEp-2 cells. Performed By: [facility] [address] [place] [address] Physician/Ophthalmologist: Dave Diaz III, M.D. CLIA#: [id number] Performed By: #### F OL, HCV1, HBSAG, RF, ANCA, B12 ####[place] [address]#### 247281, 798914, ANAIFS, 704075, 825266, 289334 ####[place] [address] [place] [address] Antinuclear Ab Titer 1:80 Normal [facility] Comment on above: Result Comment: Perf ormed By: [facility] [address] [place] [address] Physician/Ophthalmologist: Dave Diaz III, M.D. CLIA#: [id number] Performed By: #### F OL, HCV1, HBSAG, RF, ANCA, B12 ####[place] [address]#### 507129, 946190, ANAIFS, 037003, 429141, 523847 ####[facility] [place], [place] [address] RFon 06-09-2024 Rheumatoid Factor <6.0 Normal <=5.9 [facility] Comment on above: Result Comment: RF I gM Antibody by Enzyme Immunoassay: Negative < or = 6 Positive > 6 A positive result indicates the presence of RF antibodies and suggests the possibility of rheumatoid arthritis. A negative result indicates no RF IgM antibody or levels below the negative cut-off of the assay. Results of this assay should be used in conjunction with clinical findings and other serological tests. These results were obtained with the [employer] RF IgM JEFF. RF IgM values obtained with different manufacturers' assay methods may not be used interchangeably. The magnitude of the reported IgM levels cannot be correlated to an endpoint titer. Performed By: #### F OL, HCV1, HBSAG, RF, ANCA, B12 ####[place] [address]#### 177926, 861111, ANAIFS, 889741, 864333, 589218 ####[place] [address] [place] [id number] HCVon 06-08-2024 Hep C Ab Non-Reactive Normal Non-Reactive [facility] Comment on above: Performed By: #### F OL, HCV1, HBSAG, RF, ANCA, B12 ####[place] [address]#### 914867, 007913, ANAIFS, 769574, 722819, 953644 ####[place] [address] [place] [address] Hep C Ab Int Normal [facility] Comment on above: Result Comment: Nonr eactive: Samples with a value < 0.80 are considered nonreactive (negative) for antibodies to HCV. A negative test result does not exclude the possibility of exposure to or infection with HCV. HCV antibodies may be undetectable in some stages of the infection and in some clinical conditions. See Interp Performed By: #### F OL, HCV1, HBSAG, RF, ANCA, B12 ####[place] [address]#### 455889, 707979, ANAIFS, 804612, 140168, 605727 ####[place] [address] [place] [address] LMERLYon 06-08-2024 Lyme Total Antibody AKHIL Negative Normal Negative [facility] Comment on above: Result Comment: Lyme antibodies not detected. Reflex testing is not indicated. No laboratory evidence of infection with B. burgdorferi (Lyme disease). Negative results may occur in patients recently infected (less than or equal to 14 days) with B. burgdorferi. If recent infection is suspected, repeat testing on a new sample collected in 7 to 14 days is recommended. Performed At: [facility] [id number] Hayde Mace PhD Ph:[phone] Performed By: #### F OL, HCV1, HBSAG, RF, ANCA, B12 ####[place] [address]#### 399306, 910476, ANAIFS, 619209, 614864, 086331 ####[place] [address] [place] [address] SSABon 06-08-2024 Sjogrens SSA Ab <0.2 Normal 0.0-0.9 [facility] Comment on above: Performed By: #### F OL, HCV1, HBSAG, RF, ANCA, B12 ####[place] [address]#### 212917, 020118, ANAIFS, 331049, 943380, 762131 ####[place] [address] [place] [address] Sjogrens SSB Ab <0.2 Normal 0.0-0.9 [facility] Comment on above: Result Comment: Perf ormed At: [address] [id number] Hayde Mace PhD Ph:[phone] Performed By: #### F OL, HCV1, HBSAG, RF, ANCA, B12 ####[place] [address] [place] [address]#### 912446, 048584, ANAIFS, 678287, 554552, 259051 ####[facility] [place], [place] [address] B12on 06-07-2024 Cobalamin (Vitamin B12) [Mass/Vol] 699 pg/mL Normal 211-911 [facility] Comment on above: Performed By: #### F OL, HCV1, HBSAG, RF, ANCA, B12 #### [facility] [address] [place] [address] #### 095494, 167928, ANAIFS, 021370, 576671, 456206 #### [place] [address] [place], [place] [address] FOLon 06-07-2024 Folate 5.21 ng/mL Low 5.38-24.00 [facility] Comment on above: Performed By: #### F OL, HCV1, HBSAG, RF, ANCA, B12 ####[place] [address]#### 310275, 048401, ANAIFS, 842046, 381754, 638260 ####[facility] [place], [place] [address] HBSAGon 06-07-2024 Hep B Surf Ag Non-Reactive Normal Non-Reactive [facility] Comment on above: Performed By: #### F OL, HCV1, HBSAG, RF, ANCA, B12 ####[place] [address]#### 515868, 722718, ANAIFS, 887626, 216414, 145912 ####[facility] [place], [place] [address] Inital Evaluation (1) - PTon 05-02-2024 Inital Evaluation (1) - PT [facility] [address] [place] [address] / REHABILITATION SERVICES INITIAL EVALUATION MR#: [id number] Acct: [id number] Name: FAUSTINA GLASGOW Rep #: [id number] : 1975 48 From: Fredo Sepulveda DPT, OCS, CSCS Referring Dr.: Dr. Savita Ahn MD Status: R EG RCR Insurance: [facility] SELF PAY INSURANCE Patient's Visit Information Visit Information Visit Information: FAUSTINA GLASGOW is a 48 year old F referred to Physical Therapy by Dr. Savita Ahn MD with a diagnosis of LBP with B sciatica. Date of Evaluation: 05/02/24 Physical Therapist: Fredo Sepulveda, PAUL, OCS, CSCS Visit Plan Frequency: 2x /Week Duration: 4-6 Weeks Plan: 2x/wek for 4-6 week starting with aquatic therapy to work on plvic and lumbar ROM, HS streetching, core strength to general strength via HEP or pool. IE: given Pelvic tilt supine to help jummp start this movement whcih is minimal Subjective Subjective: Has a lot of LBP running down legs. Will be sent to spine doctor at some point. LB has hurt for over a year, starting at work. Pulled something but it never worked out. Tingles in whole body at times, had EEG and has shown signs of seizures. Sees neurologist for meningioma tumor in brain. NCV test on legs last week without results. Has numbness and tingling at times in legs and twitches which she is seeing neuro for. LBP: constant, worse with getting up and moving around alot., standing is worse. Sitting is better for short times. Not employed due to all problems and cannot function, has been out since last August. No diagnosis. Sleep is not great, back may keep her up a little bit. Spends day pittering around house. Hobbies: bingo, No regular exercises: [employer] until last August. Pain LBP: Pain Intensity (Out of 10): 6 Pain Intensity Range: 6 and 9 Objective Objective: Walks slowly with short steps into PT, poor confidence i her movement, stiff. Trasnfers bd and chair I with log rolling and hesitant to move quickly but I. Posture is forward head and kyphotic T/S, Lumbar area stiff with poor pelvic movement and slight anterior rotation. LB AROM ext max limited with pain, flexion mod limited with pain both centrall. B SB mod deficits. HS and quad mod tight, HS at -40 90/90 testing adn + R SLR Hip and LE AROM othrwise WFL. strength LE WFL and no myotomal problems, 3+ hips, 4- knee flexion and L knee ext adn 4 R knee ext, ankles at 4+/5 reflexes 2/3 patella and achilles Sensation wNL to gross light touch in L today B. Unable to pelvic tilt supin without many veerbal and tactile cues.Minimal movement even with those. PA pressure Lower lumbar is painful and poor mobility Balance/Special Test Scores Oswestry Low Back Score: 24 Goals Goal 1:: Pain in LB and legs 3/10 at worst adn 75% improved Goal Time Frame: 4-6 Weeks Goal 2:: Have minimal movement in pelvis and only min deficits in lumbar ROM without incrasd pain past 2/10 Goal Time Frame: 4-6 Weeks Goal 3:: I appropriate himee, gym, pool ex to limit future eproblms. Goal Time Frame: 4-6 Weeks Goal 4:: sleep without interruption from LBP Goal Time Frame: 4-6 Weeks Goal 5:: oswestry score5 or better Goal Time Frame: 4-6 Weeks Goal 6:: Walk without hsitation with reciprocal non stiff movements into Pt clinic Rehabilitation Potential Physical Therapy Diagnosis: Limited pelvic and lumbar ROM and pain limiting comfortable funciton Rehabilitation Potential: Questionable Anticipated Interventions Patient/Client Instruction: Educate patient on: Condition and Plan of Care For the Purpose of:: To decrease pain, To increase ROM, To improve nutrient delivery to tissue, To improve muscle performance and motor function, To increase tolerance to activity/condition/pos ition and To improve gait and locomotor functions Therapeutic Exercise to Include: Strength training, Postural training, Flexibilty training, In an aquatic setting, Passive ROM and Active ROM For the Purpose of:: To decrease pain, To increase ROM, To improve nutrient delivery to tissue, To improve muscle performance and motor function, To increase tolerance to activity/condition/pos ition and To improve ability of physical actions for home/community/work/le isure Text: Thank you for the opportunity to evaluate your patient. For Medicare and Medicare HMO plans, please review the plan of care and approve it. It will need to be FAXED BACK to us at [phone] for Medicare purposes. For Medicare only, by signing this I certify the plan of care. Please let me know if there are questions or concerns regarding this plan of care. Physician Signature: Date:__ 05/02/24 1446 CC: Dr. Savita Ahn MD EBG Signed [facility] Internal Medicine Office Vis iton 04-25-2024 Internal Medicine Office Visit [facility] [address] [place] [address] OFFICE VISIT Date of Service: 04/26/24 MR#: [id number] Acct: [id number] Name: FAUSTINA GLASGOW Rep #: [id number] : 1975 Provider: Dr. Savita harris MD Age/Sex: 48/F Location: [facility] Status: Signed Intake Vital Signs 01/01/24 18:47 04/26/24 07:59 Height 5 ft 3 in 5 ft 3 in Weight: 220 lb 6 oz BMI 39.0 BP 134/78 H Blood Pressure Location Lt brachial Position Sitting Respiration 16 Pulse 87 Pulse Source Monitor Temp 96.8 F L Temp Source Temporal Pulse Oximetry (%) 97 Oxygen Delivery Method room air Intake Visit Reasons: MED FOLLOW UP Chief Complaint: fu Geriatric Social Worker Required: No Accompanied by: Self Is patient in pain?: Yes Pain scale (1-10): 8 Allergies No Known Allergies Allergy (Verified 04/26/24 07:57) Medications ???Medication ???Instructions ???Recorded ???Confirmed ???Type marisabel.stocking,thigh ,reg,med #24 ea 08/25/23 04/26/24 Rx esomeprazole magnesium 20 mg 20 mg PO QDAY #90 caps 04/26/24 Rx capsule,delayed release fluticasone propionate 50 1 spray intranasal QDAY 04/26/24 0 04/26/24 History mcg/actuation nasal spray,suspension (Flonase Allergy Relief) gabapentin 400 mg capsule 400 mg PO TID 04/26/24 04/26/24 Hi story levothyroxine 150 mcg capsule 150 mcg PO QDAY #30 caps 04/26/24 04/26/24 Rx meloxicam 7.5 mg tablet 7.5 mg PO QDAY #30 tabs 04/26/24 0 04/26/24 Rx Have you fallen in the past year?: No Nurse's Note: pt out of omeprazole needs refill heartburn came back the last couple days without meds pt [facility], saw doctor yesterday. patient having pain in legs and back at 8 on pain scale d/t spasming in back radiating to legs PFSH Medical History Seizure disorder Meningioma Meningioma Vitamin deficiency Gallstones Carpal tunnel syndrome Surgical History S/P cholecystectomy History of carpal tunnel surgery H/O: Family History Mother Diabetes Father Heart disease Myocardial infarction, Onset Age: 46 Social History adopted: No household members: spouse, family and children housing: house number of children: 5 current occupational status: employed current occupation: [employer] pets and animals: Yes sexually active: Yes Smoking Status: Current every day smoker tobacco type: cigarettes Tobacco: How many years used: 35 Electronic Cigarette Use: not used quit status: considering quitting alcohol intake: never substance use type: does not use caffeine: Yes (4) Type: carbonated beverages what type of physical activity do you participate in: none seatbelt use: always do you feel safe at home: Yes HPI HPI Chief Complaint: fu Details: FAUSTINA GLASGOW, is a 48 F who presents to the office today for a follow up. She is due for some follow up blood work. She still hasn't done her screening as previously ordered. She previously declined any immunizations. She does smoke and doesn't want to quit at this time. She doesn't need any refills today. She reports she is eating healthy for the most part. She reports her activity level remains limited due to back pain. The patient continues to follow with neurology for her dizziness, headaches and numbness/tingling. She had imaging done recently which did show the small meningioma without other findings. She is taking her medication as prescribed without problems. She reports she hasn't been having dizziness or headaches as often as she was, however, they have not completely resolved. Since she was last seen, she completed a holter monitor for her palpitations which was normal. She reports that she thinks the gabapentin seems to have helped with the palpitations as well stating they haven't been as bad either. She reports her abdominal pain has been doing better. She reports she ran out of the nexium and states since running out she has been having some mild heartburn, but states the burning in her stomach has resolved. The patient has chronic pain in her back, which has been going on over the last year. She denies any falls or injuries. She reports any activities she does seems to aggravate it. She feels that her pain is getting worse. She reports she did a nerve conduction study on her legs yesterday. She also had imaging done and reports there were no significant findings that were felt to be causing her symptoms. She reports she has not done physical therapy, but is willing to do it. She states the gabapentin does help with the numbness/tingling, but doesn't feel that it help (more content not included)... [facility] Serum or plasma thyroid stim ulating hormone (TSH) measurement (units/volume)Ordered By: Savita Ahn on 04-25-2024 TSH Qn 4.410 uIU/mL High 0.358-3.740 [facility] Thyroid Stim Hormone (TSH)on 04-25-2024 TSH 4.410 uIU/mL High 0.358-3.740 [facility] Comment on above: Performed By: #### L 501.77630, L506.0400 #### [facility] [address] [place], [place], [id number] MRI BRAIN W/ + W/O CONTRASTo n 02-10-2024 MRI BRAIN W/ + W/O CONTRAST ORIGINAL HISTORY: Meningioma COMPARISON: No TECHNIQUE: 1. Sagittal and axial T1-weighted images. 2. Axial FLAIR images. 3. Axial T2-weighted and T2*-weighted images. 4. Axial diffusion-weighted images with ADC map. 5. Axial, sagittal and coronal T1-weighted images following uncomplicated administration of intravenous gadolinium contrast. FINDINGS: There is an extra-axial enhancing lesion over the right frontal lobe, about 14 mm in diameter and 10 mm in thickness. There is mild impingement of the frontal lobe. There is no abnormal signal within the underlying brain. The ventricles and sulci are otherwise within normal size limits. There are no abnormal intra or extra-axial fluid collections. Long-white matter differentiation is maintained. There is no abnormal restriction of diffusion. The orbital contents are normal in appearance. The paranasal sinuses are clear. IMPRESSION: Small right frontal meningioma. Interpreted by: Bolivar Littlejohn MD Preliminary Report By: Bolivar Littlejohn MD Electronically signed By Bolivar Littlejohn MD Dictated Date: 02/10/2024 3:34:42 PM Prelim Date: 02/10/2024 3:37:23 PM Sign Date: 02/10/2024 3:37:23 PM Ordering Provider: KARY GALINDO [facility] 12 Lead EKGon 01-01-2024 12 Lead EKG [facility] Cardiovascular Services [address] [place] [address] 12 Lead EKG 01/01/24 1854 MR#: [id number] Acct: [id number] Name: FAUSTINA GLASGOW Rep #: [id number] : 1975 48 From: Roel Greene MD Attending Dr: Status: DEP ER Ordering Dr: Thanh Mcdonald DO Date: 01/01/24 Location: ED Sex: F C Admitted: Test Reason : CP Blood Pressure : / mmHG Vent. Rate : 080 BPM Atrial Rate : 080 BPM P-R Int : 158 ms QRS Dur : 082 ms QT Int : 374 ms P-R-T Axes : 068 042 054 degrees QTc Int : 431 ms Normal sinus rhythm Normal ECG Confirmed by ROEL GREENE MD ([id number]), international editorial producer KELLY VINCENT ([id number]) on 01/04/2024 9:27:27 AM Referred By: Confirmed By:ROEL GREENE MD 01/04/24 0927 Date Roel Greene MD CC: Dr. Savita Ahn MD; Dr. Thanh Mcdonald DO Signed [facility] Basic Metabolic Profile (BMP )on 01-01-2024 BUN/CRE 12.3 RATIO Normal -20 [facility] Comment on above: Order Comment: 1Y Performed By: #### L 501.83446, L506.0400 #### [facility] [address] [place], [address] CA,Total 9.3 mg/dL Normal 8.5-10.1 [facility] Comment on above: Order Comment: 1Y Performed By: #### L 501.41819, L506.0400 #### [facility] [address] [place], [address] Chloride [Moles/Vol] 110 mmol/L High 98-107 [facility] Comment on above: Order Comment: 1Y Performed By: #### L 501.83534, L506.0400 #### [facility] [address] [place], [address] CO2 [Moles/Vol] 27.0 mmol/L Normal 21.0-32.0 [facility] Comment on above: Order Comment: 1Y Performed By: #### L 501.51114, L506.0400 #### [facility] [address] [place], [address] Creatinine [Mass/Vol] 0.89 mg/dL Normal 0.55-1.02 [facility] Comment on above: Order Comment: 1Y Result Comment: The validity of the calculated GFR GFRAA in patients over 70 years has not been determined. Clinical correlation is essential. Performed By: #### L 501.62479, L506.0400 #### [facility] [address] [place], [address] ECRCL 80.99 ml/min [facility] Comment on above: Order Comment: 1Y Performed By: #### L 501.57542, L506.0400 #### [facility] [address] [place], [address] EST GFR - AA 86 mL/min Normal >60 [facility] Comment on above: Order Comment: 1Y Result Comment: Afri can Serbian GFR Calc Performed By: #### L 501.74579, L506.0400 #### [facility] [address] [place], [address] GAP 5 Normal 5-15 [facility] Comment on above: Order Comment: 1Y Performed By: #### L 501.46250, L506.0400 #### [facility] [address] [place], [address] GFR/1.73 sq M.predicted among non-blacks MDRD (S/P/Bld) [Vol rate/Area] 71 mL/min/{1.73_m2} Normal >60 [facility] Comment on above: Order Comment: 1Y Result Comment: Non- GFR Calc Performed By: #### L 501.11807, L506.0400 #### [facility] [address] [place], [address] Glucose [Mass/Vol] 87 mg/dL Normal 74-106 [facility] Comment on above: Order Comment: 1Y Performed By: #### L 501.40739, L506.0400 #### [facility] [address] [place], [address] Potassium [Moles/Vol] 3.8 mmol/L Normal 3.5-5.1 [facility] Comment on above: Order Comment: 1Y Performed By: #### L 501.90607, L506.0400 #### [facility] [address] [place], [address] Sodium [Moles/Vol] 141 mmol/L Normal 136-145 [facility] Comment on above: Order Comment: 1Y Performed By: #### L 501.30809, L506.0400 #### [facility] [address] [place], [address] Urea nitrogen [Mass/Vol] 11 mg/dL Normal 7-18 [facility] Comment on above: Order Comment: 1Y Performed By: #### L 501.79027, L506.0400 #### [facility] [address] [place], [address] CBC W/Diff, Automatedon 10-2 -2023 Absolute Lymph 2.93 X10 3/uL Normal 0.83-4.51 [facility] Comment on above: Performed By: #### L 501.48430, L506.0400 #### [facility] [address] [place], [address] Absolute Neut 3.7 X10 3/uL Normal 2.0-7.7 [facility] Comment on above: Performed By: #### L 501.47475, L506.0400 #### [facility] [address] [place], [address] Basophils/100 WBC (Bld) 0.6 % Normal 0-1 [facility] Comment on above: Performed By: #### L 501.93259, L506.0400 #### [facility] [address] [place], [address] Eosinophils/100 WBC (Bld) 1.6 % Normal 0-5 [facility] Comment on above: Performed By: #### L 501.61208, L506.0400 #### [facility] [address] [place], [address] Erythrocyte distribution width (RBC) [Ratio] 14.3 % Normal 11.6-14.6 [facility] Comment on above: Performed By: #### L 501.23309, L506.0400 #### [facility] [address] [place], [address] Hematocrit (Bld) [Volume fraction] 44.7 % Normal 37-47 [facility] Comment on above: Performed By: #### L 501.30125, L506.0400 #### [facility] [address] [place], [address] Hemoglobin (Bld) [Mass/Vol] 14.7 g/dL Normal 12.0-15.0 [facility] Comment on above: Performed By: #### L 501.14705, L506.0400 #### [facility] [address] [place], [address] IG% 0.300 Normal 0.0-0.9 [facility] Comment on above: Result Comment: IG% - Immature Granulocytes (promyelocytes, myelocytes and metamyelocytes) > 1% indicates that a LEFT SHIFT is Present. Performed By: #### L 501.11968, L506.0400 #### [facility] [address] [place], [address] Lymphocytes/100 WBC (Bld) 41.5 % High 19-41 [facility] Comment on above: Performed By: #### L 501.45277, L506.0400 #### [facility] [address] [place], [address] MCH (RBC) [Entitic mass] 27.7 pg Normal 27.0-32.0 [facility] Comment on above: Performed By: #### L 501.69691, L506.0400 #### [facility] [address] [place], [address] MCHC (RBC) [Mass/Vol] 32.9 g/dL Normal 32-36 [facility] Comment on above: Performed By: #### L 501.26626, L506.0400 #### [facility] [address] [place], [address] MCV (RBC) [Entitic vol] 84.2 fL Normal 81-99 [facility] Comment on above: Performed By: #### L 501.81223, L506.0400 #### [facility] [address] [place], [address] Monocytes/100 WBC (Bld) 4.0 % Normal 0-10 [facility] Comment on above: Performed By: #### L 501.94975, L506.0400 #### [facility] [address] [place], [address] Neutrophils/100 WBC (Bld) 52.0 % Normal 47-70 [facility] Comment on above: Performed By: #### L 501.21990, L506.0400 #### [facility] [address] [place], [address] Nucleated RBC (Bld) [#/Vol] 0 10*3/uL Normal 0-5 [facility] Comment on above: Performed By: #### L 501.92986, L506.0400 #### [facility] [address] [place], [address] Platelet mean volume (Bld) [Entitic vol] 10.4 fL Normal 6.2-12.0 [facility] Comment on above: Performed By: #### L 501.13700, L506.0400 #### [facility] [address] [place], [address] Platelets (Bld) [#/Vol] 233 10*3/uL Normal 150-450 [facility] Comment on above: Performed By: #### L 501.81276, L506.0400 #### [facility] [address] [place], [address] RBC (Bld) [#/Vol] 5.31 10*6/uL Normal 4.2-5.4 [facility] Comment on above: Performed By: #### L 501.06052, L506.0400 #### [facility] [address] [place], [address] RDW SD 43.7 fl Normal 35.1-43.9 [facility] Comment on above: Performed By: #### L 501.39355, L506.0400 #### [facility] [address] [place], [address] WBC (Bld) [#/Vol] 7.1 10*3/uL Normal 4.4-11.0 [facility] Comment on above: Performed By: #### L 501.19548, L506.0400 #### [facility] [address] [place], [address] Chest 1 View (Portable)on Chest 1 View (Portable) [facility] Imaging Services [address] [place] [address] Chest 1 View (Portable) MR#: [id number] Acct: [id number] Name: FAUSTINA GLASGOW Rep #: [id number] : 1975 F 48 From: Alexx rehman MD PCP: Dr. Savita Ahn MD Status: [facility] ER Study: Chest 1 View (Portable) Date of Exam: 01/01/24 Exam# [id number] Ordering Dr: [place] Mcdonald DO [id number] INDICATION: chest pain EXAMINATION/TECHNIQUE: X-RAY - XR Chest 1 View COMPARISON: 12/04/2023. FINDINGS: The lungs are clear. The cardiomediastinal silhouette is unremarkable. No pleural effusion or pneumothorax. Degenerative changes of the thoracic spine. RAD/Chest 1 View (Portable) IMPRESSION: No acute radiographic abnormalities. Electronically Signed: Alexx Echavarria MD at 19:49 EDT , CC: Dr. Savita Ahn MD; Dr. [place] Mcdonald DO Data Governance Consultant: Signed [facility] Emergency Department Summary on 01-01-2024 Emergency Department Summary [facility] Medical Records Department [address] [place] [address] Emergency Department Summary 01/01/24 MR#: [id number] Acct: [id number] Name: FAUSTINA GLASGOW Rep #: [id number] : 1975 48 From: Thanh Mcdonald DO PCP: Dr. Savita Ahn MD Status:REG ER Location: ED HPI History of Present Illness Chief Complaint: Chest Pain Narrative Narrative: Patient is a 48-year-old female with past medical history meningioma, seizure disorder who presented to the emergency department chief complaint of chest pain rating to her left arm. States that she was just getting out of the shower earlier this evening when this all occurred. Patient states that the pain was persistent and has remained constant nothing makes it better or worse. Patient notes that she recently had a stress test as well as a echocardiogram which were normal. She also noted that she had an MRI of her whole spine which showed some cysts in her vertebrae but otherwise was unremarkable. Patient also noted that she had ultrasound of her carotid arteries which were also normal. [facility] Medical History Seizure disorder Meningioma Meningioma Vitamin deficiency Gallstones Carpal tunnel syndrome Home Medications ???Medication ???Instructions ???Recorded ???Last Taken ???Type marisabel.stocking,thigh ,reg,med #24 ea 08/25/23 Unknown Rx esomeprazole magnesium 40 mg 40 mg PO QDAY #30 caps 12/16/23 Unknown Rx capsule,delayed release (Nexium) Allergy/AdvReac Type Severity Reaction Status Date / Time No Known Allergies Allergy Verified 01/01/24 18:47 Family History Mother Diabetes Father Heart disease Myocardial infarction, Onset Age: 46 Surgical History S/P cholecystectomy History of carpal tunnel surgery H/O: Social History adopted: No household members: spouse, family and children housing: house number of children: 5 current occupational status: employed current occupation: [employer] pets and animals: Yes sexually active: Yes Smoking Status: Current every day smoker tobacco type: cigarettes Tobacco: How many years used: 35 Electronic Cigarette Use: not used quit status: considering quitting alcohol intake: never substance use type: does not use caffeine: Yes (4) Type: carbonated beverages what type of physical activity do you participate in: none seatbelt use: always do you feel safe at home: Yes ROS ROS ED ROS Narrative Constitutional: Denies any fevers, chills, headaches complaints, dizziness Eyes: Denies any double vision blurry vision change in vision Cardiovascular: Complains of chest pain as noted above denies palpitations Respiratory: Denies coughing wheezing shortness of breath Abdomen: Denies abdominal pain nausea vomit diarrhea : Denies any urinary symptoms Neurological: Denies any numbness or tingling Musculoskeletal: Denies back pain Skin: Denies rashes or lesions EXAM Physical Exam Narrative Exam Narrative: General: Patient was lying in bed rest comfortably did not appear to be in acute distress Head: Atraumatic, normocephalic Eyes: PERRL bilaterally, EOMI bilateral, no conjunctival injection noted Neck: Soft, supple, trach midline Cardiovascular: Regular rate and rhythm no murmurs gallops rubs noted Respiratory: Clear to auscultation bilaterally Abdomen: Soft, nondistended, nontender to palpation, bowel sounds present in 4 Extremities: +5/5 strength noted in the bilateral upper and lower extremities, radial pulses +2/4 in the bilateral per extremities Neurological: Patient is following commands knew that she was at [facility] there is 2023 Skin: Warm, dry, intact Const Vital Signs: 01/01/24 18:47 01/01/24 18:49 01/01/24 19:47 Temperature 97.9 F Temperature Source Oral Pulse Rate 91 81 Respiratory Rate 18 17 Respiratory Effort Blood Pressure 169/84 H 144/75 H Blood Pressure Mean 112 98 Pulse Ox 100 99 99 Oxygen Delivery Method Room Air Room Air Room Air 01/01/24 20:00 01/01/24 20:00 01/01/24 21:00 Temperature Temperature Source Pulse Rate 79 73 Respiratory Rate 14 12 Respiratory Effort Short of Breath Blood Pressure 144/70 H Blood Pressure Mean 94 Pulse Ox 99 99 Oxygen Delivery Method Room Air Room Air MDM MDM MDM Narrative Medical decision making narrative: Patient is a 48-year-old female who presented to the emerged part with a chief complaint of chest pain . Patient will have a workup performed here on the differential diagnose clues but limited to ACS, pneumonia, pneumothorax. Once workup is o (more content not included)... [facility] L501.4020on 01-01-2024 TROPONIN-I HS 4 pg/mL Normal 3.0-54.0 [facility] Comment on above: Result Comment: Plea se Note: New Test Units and Gender Specific Reference Ranges. For more information see Policy Stat Procedure [place] High Sensitivity Troponin (TNIH) and attachments. Performed By: #### L 501.4020 #### [facility] [address] [place], [place], [address] L501.5425on 01-01-2024 TROPONIN-I HS < 3 Low 3.0-54.0 [facility] Comment on above: Order Comment: 1Y Result Comment: Plea se Note: New Test Units and Gender Specific Reference Ranges. For more information see Policy Stat Procedure [place] High Sensitivity Troponin (TNIH) and attachments. Performed By: #### L 501.89811, L506.0400 #### [facility] [address] [place], [address] MRI SPINE LUMBAR W/ + W/O CO [...] 12/29/2023 6:42:46 PM Ordering Provider: KARY Yusuf [facility] MRI SPINE CERVICAL W/ + W/O CONTRASTon [...] 12/25/2023 4:25:43 PM Ordering Provider: KARY GALINDO [facility] MRI SPINE THORACIC W/ + W/O [...] Date: 12/25/2023 4:23:33 PM Ordering Provider: KARY GALINDO [facility] Internal Medicine Office Vis amy 12-15-2023 Internal Medicine Office Visit [facility] [facility] [place] [address] OFFICE VISIT Date of Service: 12/16/23 MR#: [id number] Acct: [id number] Name: FAUSTINA GLASGOW Rep #: [id number] : 1975 Provider: Dr. Savita harris MD Age/Sex: 48/F Location: [facility] Status: Signed Intake Vital Signs 12/04/23 01:07 12/16/23 11:34 Height 5 ft 3 in 5 ft 3 in Weight: 203 lb BMI 35.9 BP 128/78 H Blood Pressure Location Lt brachial Position Sitting Respiration 16 Pulse 81 Pulse Source Monitor Temp 97.0 F L Temp Source Temporal Pulse Oximetry (%) 98 Oxygen Delivery Method room air Intake Visit Reasons: BURNING IN STOMACH/DARK STOOL Chief Complaint: burning in stomach/ dark stools Geriatric Social Worker Required: No Accompanied by: Self Is patient in pain?: No Allergies No Known Allergies Allergy (Verified 12/16/23 11:28) Medications ???Medication ???Instructions ???Recorded ???Confirmed ???Type marisabel.stocking,thigh ,reg,med #24 ea 08/25/23 12/16/23 Rx esomeprazole magnesium 40 mg 40 mg PO QDAY #30 caps 12/16/23 12/16/23 Rx capsule,delayed release (Nexium) PFSH Medical History Seizure disorder Meningioma Meningioma Vitamin deficiency Gallstones Carpal tunnel syndrome Surgical History S/P cholecystectomy History of carpal tunnel surgery H/O: Family History Mother Diabetes Father Heart disease Myocardial infarction, Onset Age: 46 Social History adopted: No household members: spouse, family and children housing: house number of children: 5 current occupational status: employed current occupation: [employer] pets and animals: Yes sexually active: Yes Smoking Status: Current every day smoker tobacco type: cigarettes Tobacco: How many years used: 35 Electronic Cigarette Use: not used quit status: considering quitting alcohol intake: never substance use type: does not use caffeine: Yes (4) Type: carbonated beverages what type of physical activity do you participate in: none seatbelt use: always do you feel safe at home: Yes HPI HPI Chief Complaint: burning in stomach/ dark stools Details: FAUSTINA GLASGOW, is a 48 F who presents to the office today for a follow up. She is not due for any routine blood work. She hasn't done her screening as previously ordered. She previously declined any immunizations. She does smoke and doesn't want to quit at this time. She doesn't need any refills today. She reports she is eating healthy for the most part. She reports her activity level remains limited. The patient continues to complain of dizziness associated with headaches and numbness/tingling. At her last office visit, a tilt table test was ordered, but not completed. She did have an abnormal EEG, but remaining work up hasn't demonstrated any significant findings. She is following with neurology and reports that she was started on seizure medications, but hasn't been tolerating those so she is not currently taking anything. She has an MRI of her spine scheduled for later this month for further assessment. The patient reports her palpitations seem to be the primary problem now instead of her other symptoms. She reports there doesn't seem to be any specific trigger to them. She has been seen in the ED on multiple occasions, most recently on 12/03. During her visits, she was often noted to be very anxious and treated for anxiety. She reports, however, that she doesn't feel anxious. The patient was seen in the ED on 11/25 with complaints of upper abdominal pain. Labs were done without significant findings. She was felt to have GERD/gastritis and treated with a GI cocktail. She clinically improved and was discharged home with protonix. She reports that she took it up until a couple of days ago and then stopped it. She reports it initially helped, but stopped. She reports she has also tried omeprazole, pepto-bismol and tums which hasn't helped either. She reports she is having burning in her upper abdomen and up into her chest. She reports she does have reflux into her throat. She reports it can happen even with drinking water. She has never had an endoscopy done before. She reports her symptoms have been going on for about a month and a half when she started a seizure medication, but it never went away after stopping it. She reports her symptoms aren't getting worse, but isn't improving. The patient does have problems with her bowels, but notes she doesn't have a lot of fiber in her diet. She reports she has been having dark stools, but denies any bloody stools. She denies any vomiting, but does occasionally have some nause (more content not included)... [facility] 12 Lead EKGon 12-04-2023 12 Lead EKG [facility] Cardiovascular Services [address] [place] [address] 12 Lead EKG 12/04/23 0219 MR#: [id number] Acct: [id number] Name: FAUSTINA GLASGOW Rep #: [id number] : 1975 48 From: Roel Greene MD Attending Dr: Status: DEP ER Ordering Dr: Thanh Mcdonald DO Date: 12/04/23 Location: ED Sex: F C Admitted: Test Reason : Blood Pressure : / mmHG Vent. Rate : 061 BPM Atrial Rate : 061 BPM P-R Int : 152 ms QRS Dur : 084 ms QT Int : 416 ms P-R-T Axes : 055 040 045 degrees QTc Int : 418 ms Normal sinus rhythm with sinus arrhythmia Normal ECG Confirmed by JOHANA WONG, ROEL ([id number]), international editorial producer KELLY VINCENT ([id number]) on 12/07/2023 7:29:00 AM Referred By: Confirmed By:ROEL GREENE MD 12/07/23 0729 Roel Greene MD CC: Dr. Savita Ahn MD; Dr. Thanh Mcdonald DO Signed [facility] Basic Metabolic Profile (BMP )on 12-04-2023 BUN/CRE 10.2 RATIO Normal 10-20 [facility] Comment on above: Order Comment: 'TROP ' Serial specimen #1, #2 or #3: 1 Performed By: #### L 501.5200, L500.2500, L501.9520, L100.0100, L501.4020 #### [facility] [address] [place], [address] CA,Total 8.7 mg/dL Normal 8.5-10.1 [facility] Comment on above: Order Comment: 'TROP ' Serial specimen #1, #2 or #3: 1 Performed By: #### L 501.5200, L500.2500, L501.9520, L100.0100, L501.4020 #### [facility] [address] [place], [address] Chloride [Moles/Vol] 109 mmol/L High 98-107 [facility] Comment on above: Order Comment: 'TROP ' Serial specimen #1, #2 or #3: 1 Performed By: #### L 501.5200, L500.2500, L501.9520, L100.0100, L501.4020 #### [facility] [address] [place], [address] CO2 [Moles/Vol] 26.0 mmol/L Normal 21.0-32.0 [facility] Comment on above: Order Comment: 'TROP ' Serial specimen #1, #2 or #3: 1 Performed By: #### L 501.5200, L500.2500, L501.9520, L100.0100, L501.4020 #### [facility] [address] [place], [address] Creatinine [Mass/Vol] 0.98 mg/dL Normal 0.55-1.02 [facility] Comment on above: Order Comment: 'TROP ' Serial specimen #1, #2 or #3: 1 Result Comment: The validity of the calculated GFR GFRAA in patients over 70 years has not been determined. Clinical correlation is essential. Performed By: #### L 501.5200, L500.2500, L501.9520, L100.0100, L501.4020 #### [facility] [address] [place], [address] ECRCL 73.94 ml/min [facility] Comment on above: Order Comment: 'TROP ' Serial specimen #1, #2 or #3: 1 Performed By: #### L 501.5200, L500.2500, L501.9520, L100.0100, L501.4020 #### [facility] [address] [place], [address] EST GFR - AA 77 mL/min Normal >60 [facility] Comment on above: Order Comment: 'TROP ' Serial specimen #1, #2 or #3: 1 Result Comment: Afri can Serbian GFR Calc Performed By: #### L 501.5200, L500.2500, L501.9520, L100.0100, L501.4020 #### [facility] [address] [place], [address] GAP 7 Normal 5-15 [facility] Comment on above: Order Comment: 'TROP ' Serial specimen #1, #2 or #3: 1 Performed By: #### L 501.5200, L500.2500, L501.9520, L100.0100, L501.4020 #### [facility] [address] [place], [address] GFR/1.73 sq M.predicted among non-blacks MDRD (S/P/Bld) [Vol rate/Area] 64 mL/min/{1.73_m2} Normal >60 [facility] Comment on above: Order Comment: 'TROP ' Serial specimen #1, #2 or #3: 1 Result Comment: Non- GFR Calc Performed By: #### L 501.5200, L500.2500, L501.9520, L100.0100, L501.4020 #### [facility] [address] [place], [address] Glucose [Mass/Vol] 99 mg/dL Normal 74-106 [facility] Comment on above: Order Comment: 'TROP ' Serial specimen #1, #2 or #3: 1 Performed By: #### L 501.5200, L500.2500, L501.9520, L100.0100, L501.4020 #### [facility] [address] [place], [address] Potassium [Moles/Vol] 3.1 mmol/L Low 3.5-5.1 [facility] Comment on above: Order Comment: 'TROP ' Serial specimen #1, #2 or #3: 1 Performed By: #### L 501.5200, L500.2500, L501.9520, L100.0100, L501.4020 #### [facility] [address] [place], [address] Sodium [Moles/Vol] 142 mmol/L Normal 136-145 [facility] Comment on above: Order Comment: 'TROP ' Serial specimen #1, #2 or #3: 1 Performed By: #### L 501.5200, L500.2500, L501.9520, L100.0100, L501.4020 #### [facility] [address] [place], [address] Urea nitrogen [Mass/Vol] 10 mg/dL Normal 7-18 [facility] Comment on above: Order Comment: 'TROP ' Serial specimen #1, #2 or #3: 1 Performed By: #### L 501.5200, L500.2500, L501.9520, L100.0100, L501.4020 #### [facility] [address] [place], [address] Brain/Head without Contrasto n 12-04-2023 Brain/Head without Contrast [facility] Imaging Services [address] [place] [address] Brain/Head without Contrast MR#: [id number] Acct: [id number] Name: FAUSTINA GLASGOW Rep #: [id number] : 1975 F 48 From: Louie Heard PCP: Dr. Savita Ahn MD Status: REG ER Study: Brain/Head without Contrast Date of Exam: 11/08 09/29 Exam# [id number] Ordering Dr: Thanh Mcdonald DO [id number] INDICATION: diffuse tingling, hx of meningioma EXAMINATION: CT BRAIN - CT Head or Brain W/O Contrast Injection TECHNIQUE: Multiple axial images were obtained of the head without intravenous contrast. The protocol utilizes one or more of the following dose reduction techniques: automated exposure control, adjustment of mA and/or kV according to patient size,and/or use of iterative reconstruction technique. IV Contrast dosage and agent: None. RADIATION DOSAGE (If Supplied By Facility): CTDIvol = ( 44.99 ) mGy, DLP = ( 846.73 ) mGycm COMPARISON: No relevant prior comparison study available FINDINGS: BRAIN PARENCHYMA: No intra- or extra-axial hemorrhage. No evidence of acute infarct. No intracranial mass or mass effect. There is preservation of the long/white matter interface. Posterior fossa structures are unremarkable. CSF SPACES: Appropriate for age. No hydrocephalus. Basal cisterns are patent. CALVARIUM, SKULL BASE, PARANASAL SINUSES AND MASTOID AIR CELLS: Clear. No discrete lytic or blastic abnormalities. ORBITS: Both globes, extraocular muscles, optic nerves and retrobulbar fat appear unremarkable. ASPECTS Score for Acute Strokes: 10 CT/Brain/Head without Contrast IMPRESSION: Negative Brain CT without contrast. Electronically Signed: Louie Vanessa MD at 2:16 EDT Reading Location ID and State: [address] [place] [address] Tel , Service support , CC: Dr. Savita Ahn MD; Dr. Thanh Mcdonald DO Data Governance Consultant: Signed [facility] CBC W/Diff, Automatedon 11-08 Absolute Lymph 5.18 X10 3/uL High 0.83-4.51 [facility] Comment on above: Performed By: #### L 501.5200, L500.2500, L501.9520, L100.0100, L501.4020 #### [facility] [address] [place], [address] Absolute Neut 5.0 X10 3/uL Normal 2.0-7.7 [facility] Comment on above: Performed By: #### L 501.5200, L500.2500, L501.9520, L100.0100, L501.4020 #### [facility] [address] [place], [address] Basophils/100 WBC (Bld) 0.6 % Normal 0-1 [facility] Comment on above: Performed By: #### L 501.5200, L500.2500, L501.9520, L100.0100, L501.4020 #### [facility] [address] [place], [address] Eosinophils/100 WBC (Bld) 0.9 % Normal 0-5 [facility] Comment on above: Performed By: #### L 501.5200, L500.2500, L501.9520, L100.0100, L501.4020 #### [facility] [address] [place], [address] Erythrocyte distribution width (RBC) [Ratio] 14.7 % High 11.6-14.6 [facility] Comment on above: Performed By: #### L 501.5200, L500.2500, L501.9520, L100.0100, L501.4020 #### [facility] [address] [place], [address] Hematocrit (Bld) [Volume fraction] 44.9 % Normal 37-47 [facility] Comment on above: Performed By: #### L 501.5200, L500.2500, L501.9520, L100.0100, L501.4020 #### [facility] [address] [place], [address] Hemoglobin (Bld) [Mass/Vol] 14.5 g/dL Normal 12.0-15.0 [facility] Comment on above: Performed By: #### L 501.5200, L500.2500, L501.9520, L100.0100, L501.4020 #### [facility] [address] [place], [address] IG% 0.600 Normal 0.0-0.9 [facility] Comment on above: Result Comment: IG% - Immature Granulocytes (promyelocytes, myelocytes and metamyelocytes) > 1% indicates that a LEFT SHIFT is Present. Performed By: #### L 501.5200, L500.2500, L501.9520, L100.0100, L501.4020 #### [facility] [address] [place], [address] Lymphocytes/100 WBC (Bld) 48.5 % High 19-41 [facility] Comment on above: Performed By: #### L 501.5200, L500.2500, L501.9520, L100.0100, L501.4020 #### [facility] [address] [place], [address] MCH (RBC) [Entitic mass] 27.3 pg Normal 27.0-32.0 [facility] Comment on above: Performed By: #### L 501.5200, L500.2500, L501.9520, L100.0100, L501.4020 #### [facility] [address] [place], [address] MCHC (RBC) [Mass/Vol] 32.3 g/dL Normal 32-36 [facility] Comment on above: Performed By: #### L 501.5200, L500.2500, L501.9520, L100.0100, L501.4020 #### [facility] [address] [place], [address] MCV (RBC) [Entitic vol] 84.4 fL Normal 81-99 [facility] Comment on above: Performed By: #### L 501.5200, L500.2500, L501.9520, L100.0100, L501.4020 #### [facility] [address] [place], [address] Monocytes/100 WBC (Bld) 2.9 % Normal 0-10 [facility] Comment on above: Performed By: #### L 501.5200, L500.2500, L501.9520, L100.0100, L501.4020 #### [facility] [address] [place], [address] Neutrophils/100 WBC (Bld) 46.5 % Low 47-70 [facility] Comment on above: Performed By: #### L 501.5200, L500.2500, L501.9520, L100.0100, L501.4020 #### [facility] [address] [place], [address] Nucleated RBC (Bld) [#/Vol] 0 10*3/uL Normal 0-5 [facility] Comment on above: Performed By: #### L 501.5200, L500.2500, L501.9520, L100.0100, L501.4020 #### [facility] [address] [place], [address] Platelet mean volume (Bld) [Entitic vol] 10.3 fL Normal 6.2-12.0 [facility] Comment on above: Performed By: #### L 501.5200, L500.2500, L501.9520, L100.0100, L501.4020 #### [facility] [address] [place], [address] Platelets (Bld) [#/Vol] 253 10*3/uL Normal 150-450 [facility] Comment on above: Performed By: #### L 501.5200, L500.2500, L501.9520, L100.0100, L501.4020 #### [facility] [address] [place], [address] RBC (Bld) [#/Vol] 5.32 10*6/uL Normal 4.2-5.4 [facility] Comment on above: Performed By: #### L 501.5200, L500.2500, L501.9520, L100.0100, L501.4020 #### [facility] [address] [place], [address] RDW SD 44.5 fl High 35.1-43.9 [facility] Comment on above: Performed By: #### L 501.5200, L500.2500, L501.9520, L100.0100, L501.4020 #### [facility] [address] [place], [address] WBC (Bld) [#/Vol] 10.7 10*3/uL Normal 4.4-11.0 [facility] Comment on above: Performed By: #### L 501.5200, L500.2500, L501.9520, L100.0100, L501.4020 #### [facility] [address] [place], [address] Chest PA and Lateralon 12-03 Chest PA and Lateral [facility] Imaging Services [address] [place] [address] Chest PA and Lateral MR#: [id number] Acct: [id number] Name: FAUSTINA GLASGOW Rep #: [id number] : 1975 F 48 From: Louie Heard PCP: Dr. Savita Ahn MD Status: [facility] ER Study: Chest PA and Lateral Date of Exam: 12/04/23 Exam# [id number] Ordering Dr: Thanh Mcdonald DO [id number] INDICATION: chest pain EXAMINATION/TECHNIQUE: X-RAY - XR Chest 2 Views COMPARISON: No relevant prior comparison study available FINDINGS: LINES/DEVICES: None. LUNGS: No consolidation, edema or effusion. No pneumothorax. MEDIASTINUM AND CARDIOVASCULAR STRUCTURES: Cardiac silhouette not enlarged. Central airways and mediastinal contour are unremarkable. BONES AND SOFT TISSUES: Unremarkable. RAD/Chest PA and Lateral IMPRESSION: No radiographic evidence of acute cardiopulmonary disease. Electronically Signed: Louie Vanessa MD at 2:17 EDT Reading Location ID and State: [facility] / [place] Tel , Service support , CC: Dr. Savita Ahn MD; Dr. Thanh Mcdonald DO Data Governance Consultant: Signed [facility] Emergency Department Summary on 12-04-2023 Emergency Department Summary [facility] Medical Records Department [address] [place] [address] Emergency Department Summary 12/04/23 MR#: [id number] Acct: [id number] Name: FAUSTINA GLASGOW Rep #: [id number] : 1975 48 From: Thanh Mcdonald DO PCP: Dr. Savita Ahn MD Status:REG ER Location: ED HPI History of Present Illness Chief Complaint: Numb/Ting Narrative Narrative: Patient is a 48-year-old female with past medical history of meningioma, seizure disorder who presents to the emergency department with chief complaint of head pressure and numbness/tingling in her left arm since 3:00 this afternoon as well as her left leg. She states that her numbness and tingling in the left side of her body is constant and notes that the rest of her body will have numbness and tingling on as well with feeling of increased pressure in her head however this comes and goes. 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 She denies any recent sick contacts. [facility] Medical History Seizure disorder Meningioma Meningioma Vitamin deficiency Gallstones Carpal tunnel syndrome Home Medications ???Medication ???Instructions ???Recorded ???Last Taken ???Type marisabel.stocking,thigh ,reg,med #24 ea 08/25/23 Unknown Rx pantoprazole 40 mg tablet,delayed 40 mg PO DAILY #30 tabs 11/26/23 Unknown Rx release (Protonix) hydroxyzine HCl 25 mg tablet 25 mg PO BID PRN PRN anxiety 12/04/23 12/03/23 15:30 History Allergy/AdvReac Type Severity Reaction Status Date / Time No Known Allergies Allergy Verified 12/04/23 01:07 Family History Mother Diabetes Father Heart disease Myocardial infarction, Onset Age: 46 Surgical History S/P cholecystectomy History of carpal tunnel surgery H/O: Social History adopted: No household members: spouse, family and children housing: house number of children: 5 current occupational status: employed current occupation: [employer] pets and animals: Yes sexually active: Yes Smoking Status: Current every day smoker tobacco type: cigarettes Tobacco: How many years used: 35 Electronic Cigarette Use: not used quit status: considering quitting alcohol intake: never substance use type: does not use caffeine: Yes (4) Type: carbonated beverages what type of physical activity do you participate in: none seatbelt use: always do you feel safe at home: Yes ROS ROS ED ROS Narrative Constitutional: Complains of pressure in her head as noted above denies any dizziness, lightheadedness Eyes: Patient states that she has blurry vision but this has been going on for a significant mount time this is not changed denies any new changes in vision Cardiovascular: Denies chest pain or palpitations Respiratory: Denies coughing wheezing shortness of breath Abdomen: Denies abdominal pain nausea vomit diarrhea : Denies any urinary symptoms Neurological: Complains of whole body numbness and tingling as noted above denies weakness Musculoskeletal: Denies back pain Skin: Denies rashes or lesions EXAM Physical Exam Narrative Exam Narrative: General: Patient lying in bed rest comfortably did not appear to be in acute distress Head: Atraumatic, normocephalic Eyes: PERRL bilaterally, EOMI bilateral, no conjunctival injection noted Neck: Soft, supple, trach midline Cardiovascular: Regular rate and rhythm no murmurs gallops rubs noted Respiratory: Clear to auscultation bilaterally no rales rhonchi or wheeze noted Abdomen: Soft, nondistended, no tenderness palpation can bowel sounds present x 4 Extremities: +5/5 strength noted in the bilateral upper and lower extremities, no pedal edema on exam, radial pulses +2/4 in the bilateral upper extremities Neurological: Patient is following commands knew that she was at [facility] year is 2023. Sensation grossly intact in the bilateral upper and lower extremities, NIH of 0 GCS 15 Skin: Warm, dry, intact Const Vital Signs: 12/04/23 01:07 12/04/23 01:09 12/04/23 01:27 Temperature 98.1 F Temperature Source Oral Pulse Rate 88 81 Respiratory Rate 18 17 Blood Pressure 163/65 H 163/65 H Blood Pressure Mean 97 97 Pulse Ox 99 99 Oxygen Delivery Method Room Air Room Air Room Air 12/04/23 02:09 12/04/23 03:00 (more content not included)... [facility] Free T3on 12-04-2023 Free T3 [Mass/Vol] 2.5 pg/mL Normal 2.18-3.98 [facility] Comment on above: Performed By: #### L 501.19806, L506.0400 #### [facility] [address] [place], [address] L501.4020on 12-04-2023 TROPONIN-I HS 6 pg/mL Normal 3.0-54.0 [facility] Comment on above: Order Comment: 'TROP ' Serial specimen #1, #2 or #3: 1 Result Comment: Pleata se Note: New Test Units and Gender Specific Reference Ranges. For more information see Policy Stat Procedure [place] High Sensitivity Troponin (TNIH) and attachments. Performed By: #### L 501.5200, L500.2500, L501.9520, L100.0100, L501.4020 #### [facility] [address] [place], [address] M100.678on 12-04-2023 M100.678 Pending SARS-CoV-2 (COVID 19) Negative INFLUENZA A Negative INFLUENZA B Negative RSV PCR Negative [facility] Comment on above: Performed By: #### L 501.94961, L506.0400 #### [facility] [address] [place], [address] Magnesiumon 12-04-2023 Magnesium [Mass/Vol] 2.1 mg/dL Normal 1.6-2.6 [facility] Comment on above: Order Comment: 'TROP ' Serial specimen #1, #2 or #3: 1 Performed By: #### L 501.5200, L500.2500, L501.9520, L100.0100, L501.4020 #### [facility] [address] [place], [address] T4 Free Directon 12-04-2023 T4 FREE DIRECT 0.83 ng/dL Normal 0.76-1.46 [facility] Comment on above: Performed By: #### L 501.32585, L506.0400 #### [facility] [address] [place], [address] Thyroid Stim Hormone (TSH)on 12-04-2023 TSH 11.400 uIU/mL High 0.358-3.740 [facility] Comment on above: Order Comment: 'TROP ' Serial specimen #1, #2 or #3: 1 Performed By: #### L 501.5200, L500.2500, L501.9520, L100.0100, L501.4020 #### [facility] [address] [place], [address] .Auto Diffon 12-01-2023 Basophil, Absolute 0.1 10 3/mcL Normal 0.0-0.2 [facility] Comment on above: Performed By: #### M DW, GFR, ANEU, TROPHS, CBC, BMP, ADIFF #### [address] [address] Basophils/100 WBC (Bld) 0.6 % Normal 0.0-2.5 [facility] Comment on above: Performed By: #### M DW, GFR, ANEU, TROPHS, CBC, BMP, ADIFF #### [address] [address] Eosinophil, Absolute 0.1 10 3/mcL Normal 0.0-0.7 [facility] Comment on above: Performed By: #### M DW, GFR, ANEU, TROPHS, CBC, BMP, ADIFF #### [address] [address] Eosinophils/100 WBC (Bld) 1.2 % Normal 0.0-7.0 [facility] Comment on above: Performed By: #### M DW, GFR, ANEU, TROPHS, CBC, BMP, ADIFF #### [address] [address] Lymphocyte, Absolute 2.2 10 3/mcL Normal 0.9-4.3 [facility] Comment on above: Performed By: #### M DW, GFR, ANEU, TROPHS, CBC, BMP, ADIFF #### [address] [address] Lymphocytes/100 WBC (Bld) 27.4 % Normal 20.0-40.0 [facility] Comment on above: Performed By: #### M DW, GFR, ANEU, TROPHS, CBC, BMP, ADIFF #### [address] [address] Monocyte, Absolute 0.2 10 3/mcL Normal 0.1-1.4 [facility] Comment on above: Performed By: #### M DW, GFR, ANEU, TROPHS, CBC, BMP, ADIFF #### [address] [address] Monocytes/100 WBC (Bld) 2.6 % Normal 2.0-13.0 [facility] Comment on above: Performed By: #### M DW, GFR, ANEU, TROPHS, CBC, BMP, ADIFF #### [id number] [place], [place] [address] Neutrophils/100 WBC (Bld) 68.2 % Normal 50.0-75.0 [facility] Comment on above: Performed By: #### M DW, GFR, ANEU, TROPHS, CBC, BMP, ADIFF #### [id number] [place], [place] [address] .GFRon 12-01-2023 GFR 70 ml/min/1.73sqm Normal [facility] Comment on above: Result Comment: GFR Population [...] 15 mL/min/1.73 square meters Performed By: #### M DW, GFR, ANEU, TROPHS, CBC, BMP, ADIFF #### [id number] [place], [place] [address] GFR Non- 57 ml/min/1.73sqm Normal [facility] Comment on above: Result Comment: GFR Population [...] 15 mL/min/1.73 square meters Performed By: #### M DW, GFR, ANEU, TROPHS, CBC, BMP, ADIFF #### [address] [address] .MDWon 12-01-2023 Monocyte Distribution Width 19.74 Normal 0.00-20.00 [facility] Comment on above: Result Comment: For ED adult patients suspected of sepsis, MDW<=20.0 does not rule out sepsis or risk of sepsis Performed By: #### M DW, GFR, ANEU, TROPHS, CBC, BMP, ADIFF #### [address] [address] .NEUABSon 12-01-2023 Neutrophil, Absolute 5.6 10 3/mcL Normal 2.3-8.1 [facility] Comment on above: Performed By: #### M DW, GFR, ANEU, TROPHS, CBC, BMP, ADIFF #### [address] [address] BMPon 12-01-2023 BUN/Creatinine Ratio 8 ratio Normal 7-27 [facility] Comment on above: Performed By: #### M DW, GFR, ANEU, TROPHS, CBC, BMP, ADIFF #### [address] [address] Calcium [Mass/Vol] 9.2 mg/dL Normal 8.4-10.2 [facility] Comment on above: Performed By: #### M DW, GFR, ANEU, TROPHS, CBC, BMP, ADIFF #### [address] [address] Chloride [Moles/Vol] 106 mmol/L Normal 98-107 [facility] Comment on above: Performed By: #### M DW, GFR, ANEU, TROPHS, CBC, BMP, ADIFF #### [address] [address] CO2 [Moles/Vol] 28 mmol/L Normal 22-29 [facility] Comment on above: Performed By: #### M DW, GFR, ANEU, TROPHS, CBC, BMP, ADIFF #### [address] [address] Creatinine [Mass/Vol] 1.02 mg/dL Normal 0.55-1.02 [facility] Comment on above: Result Comment: Test ing performed on Siemens Dimension EXL analyzer using a modified kinetic Mynor technique. Performed By: #### M DW, GFR, ANEU, TROPHS, CBC, BMP, ADIFF #### [address] [address] Electrolyte Balance 10.0 mEq/L Normal 4.0-15.0 [facility] Comment on above: Performed By: #### M DW, GFR, ANEU, TROPHS, CBC, BMP, ADIFF #### [address] [address] Glucose [Mass/Vol] 94 mg/dL Normal 70-105 [facility] Comment on above: Performed By: #### M DW, GFR, ANEU, TROPHS, CBC, BMP, ADIFF #### [address] [address] Potassium [Moles/Vol] 4.1 mmol/L Normal 3.5-5.1 [facility] Comment on above: Performed By: #### M DW, GFR, ANEU, TROPHS, CBC, BMP, ADIFF #### [address] [address] Sodium [Moles/Vol] 144 mmol/L Normal 136-145 [facility] Comment on above: Performed By: #### M DW, GFR, ANEU, TROPHS, CBC, BMP, ADIFF #### [address] [address] Urea nitrogen [Mass/Vol] 8 mg/dL Normal 7-18 [facility] Comment on above: Performed By: #### M DW, GFR, ANEU, TROPHS, CBC, BMP, ADIFF #### [address] [address] CBCon 12-01-2023 Erythrocyte distribution width (RBC) [Ratio] 14.8 % Normal 11.5-15.5 [facility] Comment on above: Performed By: #### M DW, GFR, ANEU, TROPHS, CBC, BMP, ADIFF #### [address] [address] Hematocrit (Bld) [Volume fraction] 45.4 % Normal 34.0-46.0 [facility] Comment on above: Performed By: #### M DW, GFR, ANEU, TROPHS, CBC, BMP, ADIFF #### [place] [address] Hgb 15.4 G/dL Normal 12.0-16.0 [facility] Comment on above: Performed By: #### M DW, GFR, ANEU, TROPHS, CBC, BMP, ADIFF #### [place] [address]27 MCH (RBC) [Entitic mass] 28.2 pg Normal 27.0-33.0 [facility] Comment on above: Performed By: #### M DW, GFR, ANEU, TROPHS, CBC, BMP, ADIFF #### [address] [address] MCHC 33.9 G/dL Normal 32.0-36.0 [facility] Comment on above: Performed By: #### M DW, GFR, ANEU, TROPHS, CBC, BMP, ADIFF #### [address] [address] MCV (RBC) [Entitic vol] 83.1 fL Normal 80.0-99.0 [facility] Comment on above: Performed By: #### M DW, GFR, ANEU, TROPHS, CBC, BMP, ADIFF #### [place] [address]27 Platelet 232 10 3/mcL Normal 150-450 [facility] Comment on above: Performed By: #### M DW, GFR, ANEU, TROPHS, CBC, BMP, ADIFF #### [place] [address] [place], [place] [address] Platelet mean volume (Bld) [Entitic vol] 8.0 fL Normal 6.6-10.5 [facility] Comment on above: Performed By: #### M DW, GFR, ANEU, TROPHS, CBC, BMP, ADIFF #### [place] [address] [place], [place] [address] RBC 5.46 10 6/mcL High 4.10-5.30 [facility] Comment on above: Performed By: #### M DW, GFR, ANEU, TROPHS, CBC, BMP, ADIFF #### [place] [address] [place] [address] WBC 8.2 10 3/mcL Normal 4.5-10.8 [facility] Comment on above: Performed By: #### M DW, GFR, ANEU, TROPHS, CBC, BMP, ADIFF #### [place] [address] [place] [address] LABORATORYOrdered By: SYSTEM SYSTEM on 12-01-2023 Basophils [...] a homogeneous sandwich chemiluminescent immunoassay based on Taposé technology. Urea nitrogen [Mass/Vol] 8 mg/dL Normal 7 - 18 mg/dL AO ADM SS Urea nitrogen/Creatinine [Mass ratio] 8 ratio Normal 7 - 27 ratio AO ADM SS WBC (Bld) [#/Vol] 8.2 103/mcL Normal 4.5 - 10.8 10^3/mcL AO Workflow SS TROPHSon 12-01-2023 High Sensitivity Troponin I <4 Normal 0-51 [facility] Comment on above: Result Comment: High Sensitive Troponin I Reference Ranges: Female: 0-51 ng/L Male: 0-76 ng/L Testing performed on Dimension EXL using a homogeneous sandwich chemiluminescent immunoassay based on Taposé technology. Performed By: #### M DW, GFR, ANEU, TROPHS, CBC, BMP, ADIFF #### [place] [address] [place], [place] [address] CBC W/Diff, Automatedon 11-07 Absolute Lymph 3.59 X10 3/uL Normal 0.83-4.51 [facility] Comment on above: Performed By: #### L 501.2450, L100.0100, L500.4050 ####[facility] [address] [place], [address] Absolute Neut 4.1 X10 3/uL Normal 2.0-7.7 [facility] Comment on above: Performed By: #### L 501.2450, L100.0100, L500.4050 ####[facility] [address] [place], [address] Basophils/100 WBC (Bld) 0.7 % Normal 0-1 [facility] Comment on above: Performed By: #### L 501.2450, L100.0100, L500.4050 ####[facility] [address] [place], [address] Eosinophils/100 WBC (Bld) 1.6 % Normal 0-5 [facility] Comment on above: Performed By: #### L 501.2450, L100.0100, L500.4050 ####[facility] [address] [place], [address] Erythrocyte distribution width (RBC) [Ratio] 14.6 % Normal 11.6-14.6 [facility] Comment on above: Performed By: #### L 501.2450, L100.0100, L500.4050 ####[facility] [address] [place], [address] Hematocrit (Bld) [Volume fraction] 45.0 % Normal 37-47 [facility] Comment on above: Performed By: #### L 501.2450, L100.0100, L500.4050 ####[facility] [address] [place], [address] Hemoglobin (Bld) [Mass/Vol] 14.7 g/dL Normal 12.0-15.0 [facility] Comment on above: Performed By: #### L 501.2450, L100.0100, L500.4050 ####[facility] [address] [place], [address] IG% 0.500 Normal 0.0-0.9 [facility] Comment on above: Result Comment: IG% - Immature Granulocytes (promyelocytes, myelocytes and metamyelocytes) > 1% indicates that a LEFT SHIFT is Present. Performed By: #### L 501.2450, L100.0100, L500.4050 ####[facility] [address] [place], [address] Lymphocytes/100 WBC (Bld) 43.4 % High 19-41 [facility] Comment on above: Performed By: #### L 501.2450, L100.0100, L500.4050 ####[facility] [address] [place], [address] MCH (RBC) [Entitic mass] 27.4 pg Normal 27.0-32.0 [facility] Comment on above: Performed By: #### L 501.2450, L100.0100, L500.4050 ####[facility] [address] [place], [address] MCHC (RBC) [Mass/Vol] 32.7 g/dL Normal 32-36 [facility] Comment on above: Performed By: #### L 501.2450, L100.0100, L500.4050 ####[facility] [address] [place], [address] MCV (RBC) [Entitic vol] 83.8 fL Normal 81-99 [facility] Comment on above: Performed By: #### L 501.2450, L100.0100, L500.4050 ####[facility] [address] [place], [address] Monocytes/100 WBC (Bld) 4.4 % Normal 0-10 [facility] Comment on above: Performed By: #### L 501.2450, L100.0100, L500.4050 ####[facility] [address] [place], [address] Neutrophils/100 WBC (Bld) 49.4 % Normal 47-70 [facility] Comment on above: Performed By: #### L 501.2450, L100.0100, L500.4050 ####[facility] [address] [place], [address] Nucleated RBC (Bld) [#/Vol] 0 10*3/uL Normal 0-5 [facility] Comment on above: Performed By: #### L 501.2450, L100.0100, L500.4050 ####[facility] [address] [place], [address] Platelet mean volume (Bld) [Entitic vol] 10.3 fL Normal 6.2-12.0 [facility] Comment on above: Performed By: #### L 501.2450, L100.0100, L500.4050 ####[facility] [address] [place], [address] Platelets (Bld) [#/Vol] 238 10*3/uL Normal 150-450 [facility] Comment on above: Performed By: #### L 501.2450, L100.0100, L500.4050 ####[facility] [address] [place], [address] RBC (Bld) [#/Vol] 5.37 10*6/uL Normal 4.2-5.4 [facility] Comment on above: Performed By: #### L 501.2450, L100.0100, L500.4050 ####[facility] [address] [place], [address] RDW SD 43.9 fl Normal 35.1-43.9 [facility] Comment on above: Performed By: #### L 501.2450, L100.0100, L500.4050 ####[facility] [address] [place], [address] WBC (Bld) [#/Vol] 8.3 10*3/uL Normal 4.4-11.0 [facility] Comment on above: Performed By: #### L 501.2450, L100.0100, L500.4050 ####[facility] [address] [place], [address] Comprehensive Metabolic Prof wion 11-26-2023 Albumin [Mass/Vol] 3.3 g/dL Normal 3.2-5.0 [facility] Comment on above: Performed By: #### L 501.2450, L100.0100, L500.4050 ####[facility] [address] [place], [address] Albumin/Globulin [Mass ratio] 0.8 {ratio} Low 0.9-2.4 [facility] Comment on above: Performed By: #### L 501.2450, L100.0100, L500.4050 ####[facility] [address] [place], [address] ALK P 102 U/L Normal 45-117 [facility] Comment on above: Performed By: #### L 501.2450, L100.0100, L500.4050 ####[facility] [address] [place], [address] ALT [Catalytic activity/Vol] 24 U/L Normal 13-56 [facility] Comment on above: Performed By: #### L 501.2450, L100.0100, L500.4050 ####[facility] [address] [place], [address] AST [Catalytic activity/Vol] 14 U/L Low 15-37 [facility] Comment on above: Result Comment: Slig ht Hemolysis, Result may be falsely increased. Performed By: #### L 501.2450, L100.0100, L500.4050 ####[facility] [address] [place], [address] Bilirubin [Mass/Vol] 0.20 mg/dL Normal 0.20-1.00 [facility] Comment on above: Result Comment: For patients on eltrombopag therapy, use of Dimension [place] TBIL is not recommended. Performed By: #### L 501.2450, L100.0100, L500.4050 ####[facility] [address] [place], [address] BUN/CRE 12.7 RATIO Normal 10-20 [facility] Comment on above: Performed By: #### L 501.2450, L100.0100, L500.4050 ####[facility] [address] [place], [address] CA,Total 9.2 mg/dL Normal 8.5-10.1 [facility] Comment on above: Performed By: #### L 501.2450, L100.0100, L500.4050 ####[facility] [address] [place], [address] Chloride [Moles/Vol] 107 mmol/L Normal 98-107 [facility] Comment on above: Performed By: #### L 501.2450, L100.0100, L500.4050 ####[facility] [address] [place], [address] CO2 [Moles/Vol] 25.0 mmol/L Normal 21.0-32.0 [facility] Comment on above: Performed By: #### L 501.2450, L100.0100, L500.4050 ####[facility] [address] [place], [address] Creatinine [Mass/Vol] 0.94 mg/dL Normal 0.55-1.02 [facility] Comment on above: Result Comment: The validity of the calculated GFR GFRAA in patients over 70 years has not been determined. Clinical correlation is essential. Performed By: #### L 501.2450, L100.0100, L500.4050 ####[facility] [address] [place], [address] ECRCL 80.39 ml/min Normal [facility] Comment on above: Performed By: #### L 501.2450, L100.0100, L500.4050 ####[facility] [address] [place], [address] EST GFR - AA 81 mL/min Normal >60 [facility] Comment on above: Result Comment: Afri can Serbian GFR Calc Performed By: #### L 501.2450, L100.0100, L500.4050 ####[facility] [address] [place], [address] GAP 6 Normal 5-15 [facility] Comment on above: Performed By: #### L 501.2450, L100.0100, L500.4050 ####[facility] [address] [place], [address] GFR/1.73 sq M.predicted among non-blacks MDRD (S/P/Bld) [Vol rate/Area] 67 mL/min/{1.73_m2} Normal >60 [facility] Comment on above: Result Comment: Non- GFR Calc Performed By: #### L 501.2450, L100.0100, L500.4050 ####[facility] [address] [place], [address] Globulin (S) [Mass/Vol] 4.2 g/dL Normal 2.2-4.2 [facility] Comment on above: Performed By: #### L 501.2450, L100.0100, L500.4050 ####[facility] [address] [place], [address] Glucose [Mass/Vol] 130 mg/dL High 74-106 [facility] Comment on above: Result Comment: Fast ing Glucose result greater than or equal to 126 mg/dL suggests DIABETES MELLITUS per A.D.A. criteria. Performed By: #### L 501.2450, L100.0100, L500.4050 ####[facility] [address] [place], [address] Potassium [Moles/Vol] 3.6 mmol/L Normal 3.5-5.1 [facility] Comment on above: Result Comment: Slig ht Hemolysis, Result may be falsely increased. Performed By: #### L 501.2450, L100.0100, L500.4050 ####[facility] [address] [place], [address] Sodium [Moles/Vol] 138 mmol/L Normal 136-145 [facility] Comment on above: Performed By: #### L 501.2450, L100.0100, L500.4050 ####[facility] [address] [place], [address] T PROT 7.5 g/dL Normal 6.4-8.2 [facility] Comment on above: Performed By: #### L 501.2450, L100.0100, L500.4050 ####[facility] [address] [place], [address] Urea nitrogen [Mass/Vol] 12 mg/dL Normal 7-18 [facility] Comment on above: Performed By: #### L 501.2450, L100.0100, L500.4050 ####[facility] [address] [place], [address] Emergency Department Summary on 11-26-2023 Emergency Department Summary [facility] Medical Records Department [address] [place] [address] Emergency Department Summary 11/26/23 MR#: [id number] Acct: [id number] Name: FAUSTINA GLASGOW Rep #: [id number] : 1975 48 From: Nelson Ba MD PCP: Dr. Savita Ahn MD Status:REG ER Location: ED HPI HPI - GI History of Present Illness Chief Complaint: Abd Pain Informant: patient Abdominal Pain/Flank Pain Onset: Days Context: Gradual Onset Timing: Continuous Quality: Burning Location: Epigastric Current Severity: Moderate Maximum Severity: Moderate Worsened by: Food Relieved by: Nothing Nausea/Vomiting/Emesis GI Symptom: Positive for Nausea Onset: Days Severity: Mild Diarrhea/Melena/Hemato chezia GI Symptom: Negative for Diarrhea, Melena or Hematochezia Associated Symptoms Associated Symptoms: Negative for Dysuria, Frequency, Hematuria or Urgency Narrative Narrative: 48-year-old female history of seizure disorder, meningioma and prior cholecystectomy and . States for the last week she has had epigastric abdominal pain. Worse with food. Not positional. Mild nausea no vomiting or diarrhea. No melena. No hematemesis. No significant weight change. She took omeprazole without any significant relief also Pepto-Bismol without significant relief. It is worse when she eats. Nothing particular makes it better. No chest pain. No shortness of breath. Within the last few months she had a negative stress test and negative cardiac workup according to the patient. Prior similar symptoms: Yes Recent Illness/Hospitalizatio n: No PFSH PFSH Medical History Seizure disorder Meningioma Meningioma Vitamin deficiency Gallstones Carpal tunnel syndrome Home Medications ???Medication ???Instructions ???Recorded ???Last Taken ???Type marisabel.stocking,thigh ,reg,med #24 ea 08/25/23 Unknown Rx levetiracetam 500 mg tablet 500 mg PO BID 10/23/23 Unknown History (Keppra) meclizine 25 mg tablet 25 mg PO Q8H PRN PRN Dizziness 10/23/23 Unknown History clorazepate dipotassium 3.75 mg 3.75 mg PO TID PRN anxiety 5 days 11/11/23 Unknown Rx tablet #14 tabs pantoprazole 40 mg tablet,delayed 40 mg PO DAILY #30 tabs 11/26/23 Unknown Rx release (Protonix) Allergy/AdvReac Type Severity Reaction Status Date / Time No Known Allergies Allergy Verified 11/10/23 23:11 Family History Mother Diabetes Father Heart disease Myocardial infarction, Onset Age: 46 Surgical History S/P cholecystectomy History of carpal tunnel surgery H/O: Social History adopted: No household members: spouse, family and children housing: house number of children: 5 current occupational status: employed current occupation: [employer] pets and animals: Yes sexually active: Yes Smoking Status: Current every day smoker tobacco type: cigarettes Tobacco: How many years used: 35 Electronic Cigarette Use: not used quit status: considering quitting alcohol intake: never substance use type: does not use caffeine: Yes (4) Type: carbonated beverages what type of physical activity do you participate in: none seatbelt use: always do you feel safe at home: Yes ROS ROS ED ROS Narrative Epigastric abdominal burning. Constitutional Constitutional ED: Denies chills or fever(s) ENT ENT ED: Denies ear pain Cardiovascular Cardiovascular: Denies chest pain Respiratory/Chest Respiratory/Chest: Denies cough Gastrointestinal Gastrointestinal: Reports abdominal pain and nausea; Denies constipation, diarrhea, melena or vomiting Genitourinary Genitourinary ED: Denies dysuria or hematuria Musculoskeletal Musculoskeletal: Denies arthralgias or back pain Integumentary Denies abscess Neurologic Neurologic: Denies headache(s) Psychiatric Psychiatric: Denies anxiety Endocrine Endocrinology: Denies polydipsia Hematologic/Lymphatic Hematologic/Lymphatic: Denies easy bleeding Allergic/Immunologic Allergic/Immunologic ED: Denies mouth swelling EXAM Physical Exam Narrative Exam Narrative: Well-appearing 48-year-old female. Vital signs stable afebrile. H EENT exam unremarkable. Mytrex members. Neck nontender no lymphadenopathy. Lungs clear to auscultation bilaterally. Heart regular rhythm rate about 85 no murmur. Chest wall ribs nontender. Abdomen soft nondistended normal bowel sounds without peritoneal signs. No significant abdominal tenderness. No Georges sign. No McBurney's point tenderness. No hernia or mass. No obstruction or distention. No pulsatile mass. Moving all 4 extremities. Nontender without edema. Awake and alert. No focal motor deficits (more content not included)... Normal [facility] Lipaseon 11-26-2023 Lipase [Catalytic activity/Vol] 48 U/L Normal 13-75 [facility] Comment on above: Result Comment: Stacy dinh note: LIPASE revised reference range effective 22. New Lipase methodology. Expected to produce lower values than the previous assay method. NEW Reference Range: 13 - 75 U/L Performed By: #### L 501.2450, L100.0100, L500.4050 ####[facility] [address] [place], [place], [id number] KEPPRA (LEVETIRACETAM)on KEPPRA 13.6 ug/mL Normal 10.0-40.0 [facility] Comment on above: Result Comment: Perf ormed at: - [facility] [id number] Physician/Ophthalmologist: Gordon Mcqueen MD, Phone: [phone] Performed By: #### L 100.0100, L500.4050, L3310.0000 ####[facility] [address] [place], [address] Comprehensive Metabolic Prof ilon 11-11-2023 Albumin [Mass/Vol] 3.4 g/dL Normal 3.2-5.0 [facility] Comment on above: Performed By: #### L 100.0100, L500.4050, L3310.0000 ####[facility] [address] [place], [address] Albumin/Globulin [Mass ratio] 0.8 {ratio} Low 0.9-2.4 [facility] Comment on above: Performed By: #### L 100.0100, L500.4050, L3310.0000 ####[facility] [address] [place], [address] ALK P 115 U/L Normal 45-117 [facility] Comment on above: Performed By: #### L 100.0100, L500.4050, L3310.0000 ####[facility] [address] [place], [address] ALT [Catalytic activity/Vol] 22 U/L Normal 13-56 [facility] Comment on above: Performed By: #### L 100.0100, L500.4050, L3310.0000 ####[facility] [address] [place], [address] AST [Catalytic activity/Vol] 13 U/L Low 15-37 [facility] Comment on above: Performed By: #### L 100.0100, L500.4050, L3310.0000 ####[facility] [address] [place], [address] Bilirubin [Mass/Vol] 0.30 mg/dL Normal 0.20-1.00 [facility] Comment on above: Result Comment: For patients on eltrombopag therapy, use of Dimension [place] TBIL is not recommended. Performed By: #### L 100.0100, L500.4050, L3310.0000 ####[facility] [address] [place], [address] BUN/CRE 10.6 RATIO Normal 10-20 [facility] Comment on above: Performed By: #### L 100.0100, L500.4050, L3310.0000 ####[facility] [address] [place], [address] CA,Total 9.3 mg/dL Normal 8.5-10.1 [facility] Comment on above: Performed By: #### L 100.0100, L500.4050, L3310.0000 ####[facility] [address] [place], [address] Chloride [Moles/Vol] 105 mmol/L Normal 98-107 [facility] Comment on above: Performed By: #### L 100.0100, L500.4050, L3310.0000 ####[facility] [address] [place], [address] CO2 [Moles/Vol] 29.0 mmol/L Normal 21.0-32.0 [facility] Comment on above: Performed By: #### L 100.0100, L500.4050, L3310.0000 ####[facility] [address] [place], [address] Creatinine [Mass/Vol] 0.94 mg/dL Normal 0.55-1.02 [facility] Comment on above: Result Comment: The validity of the calculated GFR GFRAA in patients over 70 years has not been determined. Clinical correlation is essential. Performed By: #### L 100.0100, L500.4050, L3310.0000 ####[facility] [address] [place], [address] ECRCL 76.96 ml/min Normal [facility] Comment on above: Performed By: #### L 100.0100, L500.4050, L3310.0000 ####[facility] [address] [place], [address] EST GFR - AA 81 mL/min Normal >60 [facility] Comment on above: Result Comment: Afri can Serbian GFR Calc Performed By: #### L 100.0100, L500.4050, L3310.0000 ####[facility] [address] [place], [address] GAP 5 Normal 5-15 [facility] Comment on above: Performed By: #### L 100.0100, L500.4050, L3310.0000 ####[facility] [address] [place], [address] GFR/1.73 sq M.predicted among non-blacks MDRD (S/P/Bld) [Vol rate/Area] 67 mL/min/{1.73_m2} Normal >60 [facility] Comment on above: Result Comment: Non- GFR Calc Performed By: #### L 100.0100, L500.4050, L3310.0000 ####[facility] [address] [place], [address] Globulin (S) [Mass/Vol] 4.0 g/dL Normal 2.2-4.2 [facility] Comment on above: Performed By: #### L 100.0100, L500.4050, L3310.0000 ####[facility] [address] [place], [address] Glucose [Mass/Vol] 90 mg/dL Normal 74-106 [facility] Comment on above: Performed By: #### L 100.0100, L500.4050, L3310.0000 ####[facility] [address] [place], [address] Potassium [Moles/Vol] 4.0 mmol/L Normal 3.5-5.1 [facility] Comment on above: Performed By: #### L 100.0100, L500.4050, L3310.0000 ####[facility] [address] [place], [address] Sodium [Moles/Vol] 139 mmol/L Normal 136-145 [facility] Comment on above: Performed By: #### L 100.0100, L500.4050, L3310.0000 ####[facility] [address] [place], [address] T PROT 7.4 g/dL Normal 6.4-8.2 [facility] Comment on above: Performed By: #### L 100.0100, L500.4050, L3310.0000 ####[facility] [address] [place], [address] Urea nitrogen [Mass/Vol] 10 mg/dL Normal 7-18 [facility] Comment on above: Performed By: #### L 100.0100, L500.4050, L3310.0000 ####[facility] [address] [place], [address] Emergency Department Summary on 11-11-2023 Emergency Department Summary [facility] Medical Records Department [address] [place] [address] Emergency Department Summary 11/11/23 MR#: [id number] Acct: [id number] Name: FAUSTINA GLASGOW Rep #: [id number] : 1975 48 From: Andrea Mcmullen MD PCP: Dr. Savita Ahn MD Status:DEP ER Location: ED ADDENDUM by Dr. Andrea Mcmullen MD on 11/11/23 at 0252 EKG was obtained per nurse protocol. EKG was normal. Rate is 80. PA interval is 142 ms. Cures duration 78 ms. QT duration 382 ms. [facility] is normal 11/11/23 0252 Cosigner Signature (if applicable): cc: Dr. Savita Ahn MD * Signed HPI History of Present Illness Chief Complaint: General Illness Detail of Chief Complaint: Anxiousness, tearful,Sensation going down arms and legs Informant: patient Onset/Context/Timing Onset: Hours Timing: Intermittent (4 weeks) Quality: Sensation pain going down her arms and legs, patient is calling these seizu Location: All extremities Current Severity: Mild Maximum Severity: Moderate Worsened by: Nothing Relieved by: Nothing Associated Symptoms Associated Symptoms: Tearful, chest pain Narrative Narrative: Patient is a woman. She has history of meningioma. She also was recently diagnosed with seizure. She had a abnormal EEG. She was placed on Keppra. She states has been compliant with her medication. Her primary care physician Dr. Kahn. Her neurologist Prior similar symptoms: Yes (Person that is with the patient states that she has been told that this is ) Recent Illness/Hospitalizatio n: Yes PFSH PFS Medical History (Updated 11/11/23 @ 01:[address] Andrea Mcmullen MD) Seizure disorder Meningioma Meningioma Vitamin deficiency Gallstones Carpal tunnel syndrome Home Medications ???Medication ???Instructions ???Recorded ???Last Taken ???Type marisabel.stocking,thigh ,reg,med #24 ea 08/25/23 Unknown Rx levetiracetam 500 mg tablet 500 mg PO BID 10/23/23 Unknown History (Keppra) meclizine 25 mg tablet 25 mg PO Q8H PRN PRN Dizziness 10/23/23 Unknown History clorazepate dipotassium 3.75 mg 3.75 mg PO TID PRN anxiety 5 days 11/11/23 Unknown Rx tablet #14 tabs Allergy/AdvReac Type Severity Reaction Status Date / Time No Known Allergies Allergy Verified 11/10/23 23:11 Family History Mother Diabetes Father Heart disease Myocardial infarction, Onset Age: 46 Surgical History S/P cholecystectomy History of carpal tunnel surgery H/O: Social History adopted: No household members: spouse, family and children housing: house number of children: 5 current occupational status: employed current occupation: [employer] pets and animals: Yes sexually active: Yes Smoking Status: Current every day smoker tobacco type: cigarettes Tobacco: How many years used: 35 Electronic Cigarette Use: not used quit status: considering quitting alcohol intake: never substance use type: does not use caffeine: Yes (4) Type: carbonated beverages what type of physical activity do you participate in: none seatbelt use: always do you feel safe at home: Yes ROS ROS ED Constitutional Constitutional ED: Denies chills, fever(s), subjective, sweats or weight loss Eyes Eyes: Denies blurry vision, change in vision or diplopia ENT ENT ED: Denies ear pain, rhinorrhea or sore throat Cardiovascular Cardiovascular: Denies chest pain, palpitations or racing heartbeat Respiratory/Chest Respiratory/Chest: Denies cough, dyspnea or dyspnea on exertion Gastrointestinal Gastrointestinal: Denies abdominal pain, constipation, diarrhea, melena, nausea or vomiting Genitourinary Genitourinary ED: Denies dysuria, hematuria or urinary frequency Musculoskeletal Musculoskeletal: Denies arthralgias or myalgias Integumentary Denies rash Neurologic Neurologic: Denies headache(s), paresthesias or weakness Psychiatric Psychiatric: Reports anxiety, depression and other Details: Patient stopped her Lexapro several weeks ago. ; Denies suicidal ideation or suicidal thoughts Endocrine Endocrinology: Denies cold intolerance or heat intolerance Hematologic/Lymphatic Hematologic/Lymphatic: Reports systems reviewed and no addt'l complaints, except as documented EXAM Physical Exam Const Vital Signs: 11/10/23 23:08 11/10/23 23:40 11/11/23 01:07 Temperature 97.8 F Temperature Source Temporal Pulse Rate 86 69 Respiratory Rate 16 12 Respiratory Effort Normal Respiratory Pattern Normal Blood Pressure 112/86 H 104/76 Blood Pressure Mean 94 85 Pulse Ox 98 97 Oxygen Delivery Method Room Air Room Air Positive well nourished and well developed Constitutional Narrative (more content not included)... Normal [facility] 12 Lead EKGon 11-10-2023 12 Lead EKG [facility] Cardiovascular Services [address] [place] [address] 12 Lead EKG 11/10/23 2317 MR#: [id number] Acct: [id number] Name: FAUSTINA GLASGOW Rep #: [id number] : 1975 48 From: Roel Greene MD Attending Dr: Status: DEP ER Ordering Dr: Andrea Mcmullen MD Date: 11/10/23 Location: ED Sex: F C Admitted: Test Reason : CP Blood Pressure : / mmHG Vent. Rate : 080 BPM Atrial Rate : 080 BPM P-R Int : 142 ms QRS Dur : 078 ms QT Int : 382 ms P-R-T Axes : 063 050 043 degrees QTc Int : 440 ms Normal sinus rhythm Normal ECG Confirmed by ROEL GREENE MD ([id number]), international editorial producer BIGG MORILLO ([id number]) on 11/12/2023 1:46:35 PM Referred By: MELINDA Confirmed By:ROEL GREENE MD 11/12/23 1346 Date Roel Greene MD CC: Dr. Savita Ahn MD; Dr. Andrea Mcmullen MD Signed Normal [facility] CBC W/Diff, Automatedon 09-0 -2023 Absolute Lymph 3.03 X10 3/uL Normal 0.83-4.51 [facility] Comment on above: Performed By: #### L 100.0100, L500.4050, L3310.0000 ####[facility] [address] [place], [address] Absolute Neut 4.7 X10 3/uL Normal 2.0-7.7 [facility] Comment on above: Performed By: #### L 100.0100, L500.4050, L3310.0000 ####[facility] [address] [place], [address] Basophils/100 WBC (Bld) 0.6 % Normal 0-1 [facility] Comment on above: Performed By: #### L 100.0100, L500.4050, L3310.0000 ####[facility] [address] [place], [address] Eosinophils/100 WBC (Bld) 1.5 % Normal 0-5 [facility] Comment on above: Performed By: #### L 100.0100, L500.4050, L3310.0000 ####[facility] [address] [place], [address] Erythrocyte distribution width (RBC) [Ratio] 14.6 % Normal 11.6-14.6 [facility] Comment on above: Performed By: #### L 100.0100, L500.4050, L3310.0000 ####[facility] [address] [place], [address] Hematocrit (Bld) [Volume fraction] 44.6 % Normal 37-47 [facility] Comment on above: Performed By: #### L 100.0100, L500.4050, L3310.0000 ####[facility] [address] [place], [address] Hemoglobin (Bld) [Mass/Vol] 14.3 g/dL Normal 12.0-15.0 [facility] Comment on above: Performed By: #### L 100.0100, L500.4050, L3310.0000 ####[facility] [address] [place], [address] IG% 0.600 Normal 0.0-0.9 [facility] Comment on above: Result Comment: IG% - Immature Granulocytes (promyelocytes, myelocytes and metamyelocytes) > 1% indicates that a LEFT SHIFT is Present. Performed By: #### L 100.0100, L500.4050, L3310.0000 ####[facility] [address] [place], [address] Lymphocytes/100 WBC (Bld) 36.9 % Normal 19-41 [facility] Comment on above: Performed By: #### L 100.0100, L500.4050, L3310.0000 ####[facility] [address] [place], [address] MCH (RBC) [Entitic mass] 27.2 pg Normal 27.0-32.0 [facility] Comment on above: Performed By: #### L 100.0100, L500.4050, L3310.0000 ####[facility] [address] [place], [address] MCHC (RBC) [Mass/Vol] 32.1 g/dL Normal 32-36 [facility] Comment on above: Performed By: #### L 100.0100, L500.4050, L3310.0000 ####[facility] [address] [place], [address] MCV (RBC) [Entitic vol] 84.8 fL Normal 81-99 [facility] Comment on above: Performed By: #### L 100.0100, L500.4050, L3310.0000 ####[facility] [address] [place], [address] Monocytes/100 WBC (Bld) 3.5 % Normal 0-10 [facility] Comment on above: Performed By: #### L 100.0100, L500.4050, L3310.0000 ####[facility] [address] [place], [address] Neutrophils/100 WBC (Bld) 56.9 % Normal 47-70 [facility] Comment on above: Performed By: #### L 100.0100, L500.4050, L3310.0000 ####[facility] [address] [place], [address] Nucleated RBC (Bld) [#/Vol] 0 10*3/uL Normal 0-5 [facility] Comment on above: Performed By: #### L 100.0100, L500.4050, L3310.0000 ####[facility] [address] [place], [address] Platelet mean volume (Bld) [Entitic vol] 10.2 fL Normal 6.2-12.0 [facility] Comment on above: Performed By: #### L 100.0100, L500.4050, L3310.0000 ####[facility] [address] [place], [address] Platelets (Bld) [#/Vol] 237 10*3/uL Normal 150-450 [facility] Comment on above: Performed By: #### L 100.0100, L500.4050, L3310.0000 ####[facility] [address] [place], [address] RBC (Bld) [#/Vol] 5.26 10*6/uL Normal 4.2-5.4 [facility] Comment on above: Performed By: #### L 100.0100, L500.4050, L3310.0000 ####[facility] [address] [place], [address] RDW SD 44.8 fl High 35.1-43.9 [facility] Comment on above: Performed By: #### L 100.0100, L500.4050, L3310.0000 ####[facility] [address] [place], [address] WBC (Bld) [#/Vol] 8.2 10*3/uL Normal 4.4-11.0 [facility] Comment on above: Performed By: #### L 100.0100, L500.4050, L3310.0000 ####[facility] [address] [place], [address] Internal Medicine Office Vis amy 10-23-2023 Internal Medicine Office Visit [facility] [address] [place] [address] OFFICE VISIT Date of Service: 10/23/23 MR#: [id number] Acct: [id number] Name: FAUSTINA GLASGOW Rep #: [id number] : 1975 Provider: VON Beltran Age/Sex: 48/F Location: [facility] Status: Signed Intake Vital Signs 09/28/23 00:58 10/23/23 08:21 Height 5 ft 3 in 5 ft 3 in Weight: 197 lb BMI 34.9 BP 128/88 H Blood Pressure Location Lt brachial Position Sitting Respiration 18 Pulse 94 Pulse Source Monitor Temp 97.8 F Temp Source Temporal Pulse Oximetry (%) 97 Oxygen Delivery Method room air Intake Visit Reasons: ACUTE FU TEST RESULTS Chief Complaint: ACUTE FU TEST RESULTS Is patient in pain?: No Allergies No Known Allergies Allergy (Verified 10/23/23 08:22) Medications ???Medication ???Instructions ???Recorded ???Confirmed ???Type marisabel.stocking,thigh ,reg,med #24 ea 08/25/23 10/23/23 Rx levetiracetam 500 mg tablet 500 mg PO BID 10/23/23 10/23/23 History (Keppra) meclizine 25 mg tablet 25 mg PO Q8H PRN PRN Dizziness 10/23/23 History Nurse's Note: pt reports that in July she started having electrical tingling and chest heaviness that has happened almost every day lasting anywhere from 5 min-1 hr pt reports that when this happens she becomes anxious and light headed. pt reports that Dr. Kary Galindo prescribed Keppra 500mg BID states that this is causing her to be weak, tired, and dizzy pt states that she plans to reach out to Dr. Galindo about this. [facility] Medical History Vitamin deficiency Gallstones Carpal tunnel syndrome Surgical History S/P cholecystectomy History of carpal tunnel surgery H/O: Family History Mother Diabetes Father Heart disease Myocardial infarction, Onset Age: 46 Social History adopted: No household members: spouse, family and children housing: house number of children: 5 current occupational status: employed current occupation: [employer] pets and animals: Yes sexually active: Yes Smoking Status: Current every day smoker tobacco type: cigarettes Tobacco: How many years used: 35 Electronic Cigarette Use: not used quit status: considering quitting alcohol intake: never substance use type: does not use caffeine: Yes (4) Type: carbonated beverages what type of physical activity do you participate in: none seatbelt use: always do you feel safe at home: Yes HPI HPI Chief Complaint: ACUTE FU TEST RESULTS Details: FAUSTINA GLASGOW, is a 48 F who presents to the office today for f/u. Patient states that she isn't exactly sure why she is here but to f/u for ER visits due to episodes that she has had since the spring. Patient states that in July she started to have these episodes where she would have these shocking sensations and tingling all throughout her body coupled with dizziness and occasional headaches. She does state that she does have hearing issues as well as tinnitus. She states that then this was occurred that she would get anxious and then have other symptoms and states it felt like she was dying. She ended up going to the ER on several occasions having labs (no significant findings) as well as imaging which showed a meningioma not previously noted without other findings. She was given referral to see neurology and has been seeing them since. She recently had an EEG done which showed some abnormalities that had signs of seizure activity. She was started on Keppra and she has a follow-up next month. She has been taking the medication as directed stating she has not seen any change in symptoms since being on this a week Patient is currently a smoker which we discussed she needs to stop. She does consumer caffeine. She does not consume ETOH. ROS Const Constitutional: No body ache, chills, excessive sweating, fatigue, fever(s), frequent falls, headache(s), snoring, weight change, sleep problems, abnormal sleep pattern or change in appetite Eyes Eyes: No blurry vision, change in vision, eye pain or Light sensitivity ENT ENT: No abnormal hearing, ear or mastoid pain, tinnitus, nasal congestion, headache(s), neck pain or sore throat Resp Respiratory: No cough, shortness of breath, snoring or wheezing Cardio Cardiology: No chest pain at rest, chest pain with exertion, excessive sweating, shortness of breath, dyspnea on exertion, lightheadedness, orthopnea or palpitations Gastro GI: No abdominal pain, change in bowel habits, constipation, cramping, diarrhea, nausea/dyspepsia or vomiting Genitourinary-Female: No burning urination, painful urination, (more content not included)... Normal [facility] XR Knee - left 4 Viewson IMPRESSION: No acute radiographic abnormalities seen in the left knee. Data Governance Consultant: [employer] Transcribe Date/Time: Jan 16 2023 11:07A Dictated by : DAVID MEZA MD This examination was interpreted and the report reviewed and electronically signed by: DAVID MEZA MD on Jan 16 2023 11:09AM [facility] DIVISION OF RADIOLOGY * * *Final Report* [...] soft tissue swelling. DIVISION OF RADIOLOGY Provider, Mansi Seymour Werner - 01/16/2023 * * *Final Report* * [...] radiographic abnormalities seen in the left knee. Data Governance Consultant: [facility] Transcribe Date/Time: Jan 16 2023 11:07A Dictated by : DAVID MEZA MD This examination was interpreted and the report reviewed and electronically signed by: DAVID MEZA MD on Jan 16 2023 11:09AM [facility] Radiology Study observation (narrative) [facility] XR Knee - left 4 ViewsOrdere d By: [facility] Provider on 01-16-2023 [facility] XR Finger - right AP and Lat eral and obliqueon 01-29-2021 IMPRESSION: Findings are suggestive of degenerative changes in the first digit. Data Governance Consultant: [facility] Transcribe Date/Time: Jan 29 2021 11:43A Dictated by : DAVID MEZA MD This examination was interpreted and the report reviewed and electronically signed by: DAVID MEZA MD on Jan 29 2021 11:47AM [facility] DIVISION OF RADIOLOGY * * *Final Report* [...] the metacarpophalangeal joint. DIVISION OF RADIOLOGY Provider, [facility] Seymour cruz [place] - 01/29/2021 * * *Final Report* * [...] of degenerative changes in the first digit. Data Governance Consultant: [employer] Transcribe Date/Time: Jan 29 2021 11:43A Dictated by : DAVID MEZA MD This examination was interpreted and the report reviewed and electronically signed by: DAVID MEZA MD on Jan 29 2021 11:47AM [facility] Radiology Study observation (narrative) [facility] XR Finger - right AP and Lat eral and obliqueOrdered By: [facility] Provider on 01-29-2021 [facility] Vital Signs Date Time Vital Sign Value Performing Clinician Nilda balderas 10-04-2024 09:03-0400 Body height 160.[address] Savita Ahn MD Work Phone: [facility] 10-04-2024 09:03-0400 Body mass index (BMI) [Ratio] 39.4 kg/m2 Dr. Savita Ahn MD Work Phone: [facility] 10-04-2024 09:03-0400 Body temperature 96.5 [degF] Dr. Savita Ahn MD Work Phone: [facility] 10-04-2024 09:03-0400 Body weight 101.[address] Savita Ahn MD Work Phone: [facility] 10-04-2024 09:03-0400 Diastolic blood pressure 72 mm[Hg] Dr. Savita Ahn MD Work Phone: [facility] 10-04-2024 09:03-0400 Heart rate 79 /min Dr. Savita Ahn MD Work Phone: [facility] 10-04-2024 09:03-0400 Respiratory rate 16 /min Dr. Savita Ahn MD Work Phone: [facility] 10-04-2024 09:03-0400 SaO2% (BldA) [Mass fraction] 96 % Dr. Savita Ahn MD Work Phone: [facility] 10-04-2024 09:03-0400 Systolic blood pressure 126 mm[Hg] Dr. Savita Ahn MD Work Phone: [facility] 08-12-2024 14:29-0400 Diastolic blood pressure 54 mm[Hg] Alexx Mace DO Work Phone: [facility] 08-12-2024 14:29-0400 Heart rate 80 /min Alexx Mace DO Work Phone: [facility] 08-12-2024 14:29-0400 Systolic blood pressure 132 mm[Hg] Alexx Mace DO Work Phone: [facility] 07-16-2024 05:48-0400 Body temperature 98.1 [degF] Dr. Savita Ahn MD Work Phone: [facility] 07-16-2024 05:48-0400 Diastolic blood pressure 76 mm[Hg] Dr. Savita Ahn MD Work Phone: [facility] 07-16-2024 05:48-0400 Heart rate 72 /min Dr. Savita Ahn MD Work Phone: [facility] 07-16-2024 05:48-0400 Respiratory rate 12 /min Dr. Savita Ahn MD Work Phone: [facility] 07-16-2024 05:48-0400 SaO2% (BldA) [Mass fraction] 99 % Dr. Savita Ahn MD Work Phone: [facility] 07-16-2024 05:48-0400 Systolic blood pressure 139 mm[Hg] Dr. Savita Ahn MD Work Phone: [facility] 07-16-2024 03:02-0400 Body height 160.[address] Savita Ahn MD Work Phone: [facility] 07-16-2024 03:02-0400 Body mass index (BMI) [Ratio] 39.4 kg/m2 Dr. Savita Ahn MD Work Phone: [facility] 07-16-2024 03:02-0400 Body weight 101.[address] Savita Ahn MD Work Phone: [facility] 04-26-2024 07:59-0500 Body mass index (BMI) [Ratio] 39 kg/m2 Dr. Savita Ahn MD Work Phone: [facility] 04-26-2024 07:59-0500 Body temperature 96.8 [degF] Dr. Savita Ahn MD Work Phone: [facility] 04-26-2024 07:59-0500 Body weight 99.[address] Savita Ahn MD Work Phone: [facility] 04-26-2024 07:59-0500 Diastolic blood pressure 78 mm[Hg] Dr. Savita Ahn MD Work Phone: [facility] 04-26-2024 07:59-0500 Heart rate 87 /min Dr. Savita Ahn MD Work Phone: [facility] 04-26-2024 07:59-0500 Respiratory rate 16 /min Dr. Savita Ahn MD Work Phone: [facility] 04-26-2024 07:59-0500 SaO2% (BldA) [Mass fraction] 97 % Dr. Savita Ahn MD Work Phone: [facility] 04-26-2024 07:59-0500 Systolic blood pressure 134 mm[Hg] Dr. Savita Ahn MD Work Phone: [facility] 12-01-2023 21:13-0400 Diastolic Blood Pressure Non-Invasive 63 mm[Hg] CEE SIMONT [facility] 12-01-2023 21:13-0400 Heart rate 80 /min CEE SIMONT DO [facility] 12-01-2023 21:13-0400 Respiratory rate 16 /min CEE SIMONT DO [facility] 12-01-2023 21:13-0400 Systolic Blood Pressure Non-Invasive 130 mm[Hg] CEE SIMONT DO [facility] 12-01-2023 19:29-0400 Blood Pressure Location CEE SIMONT DO [facility] 12-01-2023 19:29-0400 Blood Pressure Method CEE SIMONT DO [facility] 12-01-2023 19:29-0400 Body height 160 cm CEE SIMONT DO [facility] 12-01-2023 19:29-0400 Body temperature 97.34 [degF] CEE SIMNOT DO [facility] 12-01-2023 19:29-0400 Body weight 90.9 kg CEE SIMONT DO [facility] 12-01-2023 19:29-0400 Diastolic Blood Pressure Non-Invasive 81 mm[Hg] CEE SIMONT DO [facility] 12-01-2023 19:29-0400 Heart rate 89 /min CEE SIMONT DO [facility] 12-01-2023 19:29-0400 Respiratory rate 18 /min CEE HUGGINS DO [facility] 12-01-2023 19:29-0400 Systolic Blood Pressure Non-Invasive 145 mm[Hg] ECE SIMONT DO [facility] 05-19-2022 13:06-0400 Body temperature 98.01 [degF] Tasha Bogner PA-C Work Phone: [facility] 05-19-2022 13:06-0400 Body weight 91.63 kg Tasha Bogner PA-C Work Phone: [facility] 05-19-2022 13:06-0400 Diastolic blood pressure 76 mm[Hg] Tasha Bogner PA-C Work Phone: [facility] 05-19-2022 13:06-0400 Heart rate 80 /min Tasha Bogner PA-C Work Phone: [facility] 05-19-2022 13:06-0400 Respiratory rate 18 /min Tasha Bogner PA-C Work Phone: [facility] 05-19-2022 13:06-0400 SaO2% (BldA) [Mass fraction] 99 % Tasha Bogner PA-C Work Phone: [facility] 05-19-2022 13:06-0400 Systolic blood pressure 110 mm[Hg] Tasha Bogner PA-C Work Phone: [facility] 11-27-2021 11:25-0400 Body temperature 96.91 [degF] Latrice Lutz APRN.CNP Work Phone: [facility] 11-27-2021 11:25-0400 Body weight 91.81 kg Latrice Lutz APRN.AUTOMATION MACHINE BUILDER Work Phone: [facility] 11-27-2021 11:25-0400 Diastolic blood pressure 80 mm[Hg] Latrice Lutz APRN.AUTOMATION MACHINE BUILDER Work Phone: [facility] 11-27-2021 11:25-0400 Heart rate 74 /min Latrice Lutz APRN.AUTOMATION MACHINE BUILDER Work Phone: [facility] 11-27-2021 11:25-0400 Respiratory rate 21 /min Latrice Lutz APRN.AUTOMATION MACHINE BUILDER Work Phone: [facility] 11-27-2021 11:25-0400 SaO2% (BldA) [Mass fraction] 99 % Latrice Lutz APRN.AUTOMATION MACHINE BUILDER Work Phone: [facility] 11-27-2021 11:25-0400 Systolic blood pressure 140 mm[Hg] Latrice Lutz APRN.AUTOMATION MACHINE BUILDER Work Phone: [facility] Encounters Encounter Date Encounter Type Care Provider Facility Start: 10-05-2024 ambulatory Savita Ahn Facility :[facility] Start: 10-04-2024 End: 10-04-[address] Savita Ahn MD -[facility] Work Phone: Start: 10-04-2024 End: 10-04-[address] Savita Ahn MD Work Phone: -[facility] Start: 08-26-2024 End: 08-26-2024 Telephone encounter Alexx Mace DO Work Phone: Neurology Comment on above: Results Start: 08-24-2024 End: 08-24-2024 Telephone encounter Alexx Mace DO Work Phone: Neurology Start: 08-15-2024 End: 08-16-2024 Telephone encounter Alexx Mace DO Work Phone: Neurology Comment on above: Medication Problem Start: 08-12-2024 End: 08-12-2024 ambulatory ALEXX MACE Facility:[facility] Start: 08-12-2024 End: 08-12-2024 Patient encounter procedure Alexx Mace DO Work Phone: Neurology Comment on above: Paresthesia (Primary Dx); Meningioma (HCC) Start: 08-12-2024 End: 08-12-2024 ambulatory ALEXX MACE Facility:[place] [facility] Start: 07-16-2024 End: 07-16-2024 Emergency department patient visit Dr. Savita Ahn MD Work Phone: -Emergency Department Work Phone: Start: 06-07-2024 End: 06-07-2024 ambulatory SAVITA AHN MD Facility:[facility] Start: 06-03-2024 End: 06-03-[address] Savita Ahn MD Work Phone: [facility] Work Phone: Start: 06-03-2024 End: 06-03-[address] Savita Ahn MD -Physical Therapy Work Phone: Start: 06-03-[address] Savita ho MD -Physical Therapy Work Phone: Start: 04-26-2024 End: 04-26-[address] Savita Ahn MD -[facility] Work Phone: Start: 04-26-2024 End: 04-26-2024 ambulatory Savita Ahn Facility:[facility] Start: 04-25-2024 End: 04-25-[address] Savita Ahn MD -Laboratory, [place] Start: 04-25-2024 End: 04-25-2024 ambulatory Savita Ahn Facility:[facility] Start: 02-10-2024 End: 02-10-2024 ambulatory SAVITA AHN MD Facility:[facility] Start: 01-25-2024 End: 01-25-2024 Patient encounter procedure KARY GALINDO MD [facility] Start: 01-06-2024 ambulatory Sangeetha Phoenix Facility:[facility] [place] Start: 01-06-2024 End: 01-06-2024 ambulatory Savita Pond Eddy Facility:[facility] Start: 01-01-2024 End: 01-01-2024 Emergency department patient visit Thanh Mcdonlad Facility:[facility] Start: 12-28-2023 End: 12-28-2023 ambulatory KARY GALINDO MD Facility:[facility] Start: 12-28-2023 End: 12-28-2023 Patient encounter procedure KARY GALINDO MD [facility] Start: 12-25-2023 End: 12-25-2023 ambulatory KARY GALINDO MD Facility:[facility] Start: 12-25-2023 End: 12-25-2023 Patient encounter procedure KARY GALINDO MD [facility] Start: 12-23-2023 ambulatory Humberto Soraya Munguia lity:[facility] Start: 12-16-2023 End: 12-16-2023 ambulatory Svaita Jimy Facility:[facility] Start: 12-04-2023 End: 12-04-2023 Emergency department patient visit Thanh Mcdonald Facility:[facility] Start: 12-01-2023 End: 12-01-2023 Emergency department patient visit CEE HUGGINS DO [facility] Start: 11-26-2023 End: 11-26-2023 Emergency department patient visit Nelson Ba Facility:[facility] Start: 11-10-2023 End: 11-11-2023 Emergency department patient visit Andrea Mcmullen Facility:[facility] Start: 10-23-2023 End: 10-23-2023 ambulatory Mayco LONGORIA Facility:[facility] Start: 08-13-2023 Telephone encounter No Pcp AMANUEL gonsales Comment on above: Referral faxed to in urology Start: 08-07-[address] Savita Ahn MD Work Phone: [facility] Start: 08-04-2023 End: 08-04-2023 Patient encounter procedure Billy LONGORIA Work Phone: [facility] Comment on above: Dizziness (Primary D x) Start: 02-11-2023 ambulatory No Pcp RETAIL BR[employer]CH MA[facility] Start: 02-06-2023 ambulatory No Pcp RETAIL BR[employer]CH [facility] Start: 01-16-2023 End: 01-16-2023 Subsequent hospital visit by physician Xr [facility] Work Phone: Radiology Comment on above: Acute pain of left k nee [M25.562] Start: 05-19-2022 End: 05-19-2022 Office outpatient visit 25 minutes Tasha Souza PA-C Work Phone: [facility] Comment on above: Acute frontal sinusi tis, recurrence not specified (Primary Dx) Start: 11-27-2021 End: 11-27-2021 Patient encounter procedure Latrice Lutz APRN.AUTOMATION MACHINE BUILDER Work Phone: [facility] Comment on above: Acute otitis media, right (Primary Dx) Start: 09-04-2021 ambulatory Alexx Segura MD Work Phone: Internal Medicine [facility] Start: 01-29-2021 End: 01-29-2021 Subsequent hospital visit by physician Xr [facility] Work Phone: Radiology Comment on above: Pain of right thumb [M79.644] Procedures Date Procedure Procedure Detail Performing Clinician Start: 07-16-2024 Plain chest X-ray Dr. Ata Anh MD Work Phone: Start: 07-16-[address] Savita Ahn MD Work Phone: Start: 01-16-2023 Radiologic exam knee complete 4/more views Deepti Hernandez APRN.AUTOMATION MACHINE BUILDER Work Phone: Start: 01-29-2021 Radex fingr minimum 2 views Danielle Car RETAIL BRANCH MANAGER.AUTOMATION MACHINE BUILDER Work Phone: Start: 10-07-2019 Lipid 1996 panel - S roxanne or Plasma No Pcp RETAIL BRANCH MANAGER Start: 11-01-2018 Adult depression screening assessment Alexx Segura MD Work Phone: Start: 01-28-2012 Mammography Slick Segura MD Work Phone: Plan of Treatment Date Care Activity Detail Author Start: 12-30-2028 Urine microalbumin profile [facility] Start: 04-07-2025 End: 04-07-2025 Patient encounter procedure 04/07/2025 2:00 PM EST Office Visit Neurology [id number] [place], [place] [id number] [place] [id number] [place], [place] [id number] Return in about 6 months (around 02/11/2025). Neurology Comment on above: Return in about 6 mo nths (around 02/11/2025). Start: 11-07-2024 Influenza vaccination Influenz a Vaccine (Season Ended) [facility] Start: 10-06-2024 Lipid 1996 panel - S roxanne or Plasma Lipid Screening [facility] Start: 10-06-2024 Lipid panel Lipid Screening [facility] Start: 10-06-2024 LIPID SCREEN LIPID SCREEN [facility] Start: 07-16-2024 [facility] Start: 07-16-2024 [facility] Start: 04-26-2024 Patient referral [facility] Work Phone: Start: 11-08-2023 Covid-19 Vaccine ( season) Covid-19 Vaccine ( season) [facility] Start: 11-08-2023 Covid-19 Vaccine ( season) Covid-19 Vaccine ( season) [facility] Start: 11-08-2023 Influenza vaccination [facility] Start: 06-01-2023 Screening for malign ant neoplasm of lung Lung Cancer Screening [facility] Start: 06-01-2023 Shingrix Vaccine (1 of 2) Frank grix Vaccine (1 of 2) [facility] Start: 03-09-2023 Behavioral Health Screening Behavioral Health Screening [facility] Start: 11-07-2022 Covid-19 Vaccine ( season) Covid-19 Vaccine ( season) [facility] Start: 11-07-2022 Influenza vaccination Influenza Vacc ine (#1) [facility] Start: 03-09-2022 DEPRESSION ASSESSMENT DEPRESSION ASS ESSMENT [facility] Start: 11-07-2021 Influenza vaccination [facility] Start: 11-05-2021 DIABETES SCREEN DIABETES SCREEN [facility] Start: 11-05-2021 Diabetes Screening Diabetes Screenin g [facility] Start: 10-06-2020 ANNUAL PCP TEAM PATIENT ADMITTING REPRESENTATIVE AMANDA DISEASE VISIT ANNUAL PCP TEAM CHRONIC DISEASE VISIT [facility] Start: 12-31-2019 PNEUMOCOCCAL (2 - PCV) PNEUMOCOCCAL (2 - PCV) [facility] Start: 12-31-2019 Pneumococcal vaccination [facility] Start: 12-31-2019 Pneumococcal Vaccine : 50+ (2 of 2 - PCV) Pneumococcal Vaccine: 50+ (2 of 2 - PCV) [facility] Start: 11-02-2019 Adult depression screening assessment DEPRESSION SCREENING [facility] Start: 2018 COLOGUARD (FIT-DNA) COLOGUARD (FIT-D NA) [facility] Start: 2018 Colonoscopy COLONOSCOPY [facility] Start: 2018 COLORECTAL CANCER SCREENING COLORECTAL CANCER SCREENING [facility] Start: [address] COLONOGRAPHY [facility] Start: 2018 FECAL OCCULT BLOOD FECAL OCCULT BLOO D [facility] Start: 2018 Screening for malign ant neoplasm of colon [facility] Start: 2018 SIGMOIDOSCOPY SIGMOIDOSCOPY [facility] Start: 01-27-2017 HPV TESTING HPV TESTING [facility] Start: 01-27-2017 PAP TESTING PAP TESTING [facility] Start: 01-27-2017 Screening for malign ant neoplasm of cervix [facility] Start: 2013 Mammography [facility] Start: 2013 Screening for malign ant neoplasm of breast Mammogram Screening [facility] Start: 1992 Hepatitis B Vaccine (1 of 3 - 19+ 3-dose series) Hepatitis B Vaccine (1 of 3 - 19+ 3-dose series) [facility] Start: 06-01-1991 Anxiety Screening Anxiety Screening [facility] Start: 06-01-1991 Depression Screening Depression Scre ening [facility] Start: 06-01-1991 HEPATITIS C SCREENING HEPATITIS C SC [facility] Start: 06-01-1991 Hepatitis C screening Hepatitis C [facility] Start: 06-01-1991 HIV SCREENING HIV SCREENING [facility] Start: 06-01-1991 HIV screening HIV Screening [facility] Start: 1978 COVID-19 VACCINE (#1) COVID-19 VACCI NE (#1) [facility] Start: 1973 COVID-19 VACCINE (#1) COVID-19 VACCI NE (#1) [facility] Start: 1973 HEPATITIS B (1 of 3 - 3-dose series) HEPATITIS B (1 of 3 - 3-dose series) [facility] Start: 1973 Hepatitis B Vaccine (1 of 3 - 3-dose series) Hepatitis B Vaccine (1 of 3 - 3-dose series) [facility] End: 08-12-2025 EEG MONITORING ADULT EMU (24 HOUR WITH VIDEO) EEG MONITORING ADULT EMU (24 HOUR WITH VIDEO) NEUROLOGY Routine Paresthesia 1 Occurrences starting 08/12/2024 until 08/12/2025 [facility] Work Phone: Comment on above: 1 Occurrences starti ng 08/12/2024 until 08/12/2025 Patient Education ED Chest Pain, Noncardiac ED Chest Pain, Uncertain Cause [facility] Work Phone: Patient referral [facility] Work Phone: Polysomnography [facility] End: 10-04-2022 Screening mammography bi 2-view breast inc cad KIA SCREENING Radiology Routine Encounter for screening mammogram for breast cancer 1 Occurrences starting 09/04/2021 until 10/04/2022 [facility] Work Phone: Comment on above: 1 Occurrences starti ng 09/04/2021 until 10/04/2022 Thyroid stimulating hormone measurement [facility] Tobacco use cessatio n education [facility] Immunizations Immunization Date Immunization Notes Care Provider Fa cility 12-30-2018 pneumococcal polysaccharide vaccine, 23 valent Alexx Segura MD Work Phone: [facility] 12-30-2018 tetanus toxoid, redu omar diphtheria toxoid, and acellular pertussis vaccine, adsorbed Alexx Segura MD Work Phone: [facility] 08-05-2013 tetanus toxoid, redu omar diphtheria toxoid, and acellular pertussis vaccine, adsorbed Alexx Segura MD Work Phone: [facility] Payers Date Payer Category Payer Medicaid [employer] [id number] 2023 Self-pay 2023 Unknown [id number] 2023 Unknown [id number] 2018 Unknown MMO MMO [employer] [id number] 2018-Present [phone] [address] [place] [address] PPO [id number] 2018 Unknown [id number]. [id number] 1973 Unknown [id number] [id number] 1973 Unknown [id number] [id number] 1973 Unknown [id number] [id number] 1973 Unknown [id number] 2.840.1.213099.3.579.2.627 1973 Unknown [id number] [id number] Unknown [id number] [id number] Unknown [id number] [id number] Unknown [id number] [id number] Unknown [id number] [id number] Unknown [id number] 2.840.1.865995.3.579.2.462 Unknown [id number] 2.840.1.660346.3.579.2.462 Unknown [id number] [id number] Unknown [id number] 2.840.1.656731.3.579.2.462 Unknown [id number] 2.840.1.937917.3.579.2.462 Unknown [id number] 2.840.1.046395.3.579.2.462 Unknown [id number] 2.840.1.815286.3.579.2.462 Unknown [id number] 2.840.1.508628.3.579.2.462 Unknown [id number] [id number] Unknown [id number] [id number] Unknown [id number] [id number] Social History Date Type Detail Facility Start: 11-27-2021 End: 10-04-2024 Tobacco smoking status NHIS Smokes tobacco daily [facility] History of tobacco use Cigarette Smoker C [facility] Start: 02-18-2021 End: 08-12-2024 Alcohol intake Current drinker of alcohol (finding) [facility] Start: 02-18-2021 History SDOH Alcohol Comment rarely, once a year [facility] Start: 1975 Sex Assigned At Not on file [facility] Start: 11-27-2021 End: 08-12-2024 Cigarettes smoked current (pack per day) - Reported 1 [facility] Start: 12-30-2018 End: 11-27-2021 Tobacco use and exposure Smokeless tobacco non-user [facility] Start: 12-30-2020 End: 11-27-2021 Exposure to SARS-CoV-2 (event) Not sure [facility] Work Phone: Start: 01-16-2023 End: 08-12-2024 Tobacco use panel [facility] Adult Depression Screening Assessment 0 [facility] Start: 12-30-2018 Alcohol Comment rarely [facility] Start: 1975 Sex Assigned At Female [facility] Functional Status Date Assessment Result Facility 12-01-2023 Functional Status [facility] Mental Status Date Assessment Result Facility 07-16-2024 Cognitive function Voice/Name [facility] Work Phone: 12-01-2023 Mental Status Orientation Oriented x 4 [facility] Clinical Notes 01-29-2021 to 09-06-2024 Note Date & Type Note Facility 09-06-2024 Evaluation note Diagnosis Onset Date Resolution Dizziness acute October 04 8:53am Meningioma acute October 04 8:53am Moderate major depression noneactive October 04, 2024 8:53am Smokes cigarettes noneactive October 042024 8:53am Palpitations noneactive October 04 8:53am Perineural cyst noneactive September 8:53am Elevated TSH noneactive October 04 8:53am Chronic low back pain with bilateral sciatica noneactive September 8:53am Gastroesophageal reflux disease noneactive October 04, 2024 8:[address] [facility] Work Phone: [phone] Telephone encounter Note* Telephone Encounter - Alexx Mace DO - 08/26/2024 12:43 PM EDT Blood tests from 08/12/2024 including DARYL and immunofixation were both negative/normal. [facility]06-20-2025 Miscellaneous Notes* Telephone Encounter - Alexx Mace DO - 08/26/2024 12:43 PM EDT Blood tests from 08/12/2024 including DARYL and immunofixation were both negative/normal. * Telephone Encounter - Isidra Johnson - 08/26/2024 12:30 PM EDT Patient doesn't have MyChart and is requesting a call back with there most recent lab results. Patient has been identified by name and birthdate. Duration of symptoms: N/A Person calling: self Call patient at: at home [phone] (home) [phone] (work) [phone] (cell) Was an appointment scheduled: No Closing statement: Results or non-symptom based questions: Thank you for calling [facility], your call will be returned within the next business day. Isidra Pollard documented in this encounterSumma Health [facility]06-20-2025 Telephone encounter Note * Telephone Encounter - Isidra Johnson - 08/26/2024 12:30 PM EDT Patient doesn't have MyChart and is requesting a call back with there most recent lab results. Patient has been identified by name and birthdate. Duration of symptoms: N/A Person calling: self Call patient at: at home [phone] (home) [phone] (work) [phone] (cell) Was an appointment scheduled: No Closing statement: Results or non-symptom based questions: Thank you for calling [facility], your call will be returned within the next business day. Isidra Pollard [facility]06-18-2025 Telephone encounter Note* Telephone Encounter - Hannah Patterson LPN - 08/24/2024 7:27 PM EDT 08/24/2024 Records received from [facility] for review by he has reviews and initialed copies. The records have been sent to chart scanning. Hannah Patterson LPN [facility]06-18-2025 Miscellaneous Notes* Telephone Encounter - Hannah Patterson LPN - 08/24/2024 7:27 PM EDT 08/24/2024 Records received from [facility] for review by he has reviews and initialed copies. The records have been sent to chart scanning. Hannah Patterson LPN documented in this encounterSumma Health [facility]06-09-2025 Telephone encounter Note * Telephone Encounter - Alexx Mace DO - 08/15/2024 9:22 PM EDT Prescription has been sent as requested. Note is still in progress. [facility]06-09-2025 Miscellaneous Notes* Telephone Encounter - Alexx Mace DO - 08/15/2024 9:22 PM EDT Prescription has been sent as requested. Note is still in progress. * Telephone Encounter - Rose Best - 08/15/2024 3:00 PM EDT Faustina is calling Alexx Mace DO today with concern regarding increased gabapentin Rx. Pt states at her appt on Thursday Dr. Mace recommended she increase gabapentin from 400mg to 600mg,however prescription was not sent to pharmacy. Please send to [facility] in [place]. Patient has been identified by name and birthdate. Duration of symptoms: N/A Person calling: self Call patient at: on cell [phone] (home) (work) [phone] (cell) Was an appointment scheduled: No Closing statement: Results or non-symptom based questions: Thank you for calling [facility], your call will be returned within the next business day. Rose Best documented in this encounterSumma Health [facility]06-09-2025 Telephone encounter Note * Telephone Encounter - Rose Best - 08/15/2024 3:00 PM EDT Faustina is calling Alexx Mace DO today with concern regarding increased gabapentin Rx. Pt states at her appt on Thursday Dr. Mace recommended she increase gabapentin from 400mg to 600mg,however prescription was not sent to pharmacy. Please send to [facility] in [place]. Patient has been identified by name and birthdate. Duration of symptoms: N/A Person calling: self Call patient at: on cell [phone] (home) (work) [phone] (cell) Was an appointment scheduled: No Closing statement: Results or non-symptom based questions: Thank you for calling [facility], your call will be returned within the next business day. Rose Best [facility]06-06-2025 Instructions* Patient Instructions* Alexx Mace DO - 08/12/2024 2:11 PM EDT Neurontin (Gabapentin) 600 mg tablets:and 400 mg capsules Week # AM Noon PM One 400 400 600 Two 600 400 600 Three 600 600 600 And continue at one tablet three times a day after week three. You may slow down the buildup if you wish or are feeling side effects If feeling well at certain dose/level you do not have to increase to the next dose, rather continue at the current one. documented in this encounterSumma Health Wad[facility]06-06-2025 NoteHNO ID: [id number] Author: ALEXX MACE DO Service: ? Author Type: Physician Type: Progress Notes Filed: 08/21/2024 17:27 Note Text: [facility] Neurologic [place] New Patient Consultation August 12, 2024 ++ Clarified with her that she was scheduled with myself in general neurology not in the Neuromuscular [facility], she still wishes to be seen++ HPI: Ms. Glasgow, who is accompanied by her sister with her permission, presents today secondary to issues of paresthesia at the request of Dr Kary Galindo. Also noted is referral for both neurology and neurosurgery over opinion on meningioma. She states that in 07/2023 she was at work when she had a sudden feeling of heart racing and hot tingles throughout my whole body. The episode lasted seconds but were recurrent with position changes. Each episode could last a minute or so. She had her son take her to the emergency room 08/04/[address] brain performed noting a small mass was found and followed up with MRI brain where small frontal mass noted thought consistent with meningioma. She was told that it was thought she was having an anxiety attack as to cause of her symptoms. She was referred to neurology but not able to be seen for some time, eventually seeing Dr Galindo 09/16/2023 who performed EEG 10/2023 which showed frontal sharps waves greater on the right which lead him to have her start levetiracetam which made her feel fuzzy and my head is full. This was stopped and she was tried on other seizure medication (zonisamide and briviact per chart) she cannot name but states these gave her similar feelings. She was eventually started on gabapentin at 300 mg three times a day and increased quickly to 400 mg three times a day. She feels it has lessened the intensity of palpitations and intensity of the tingling sensations. If she forget's a dose she can tell and there is a wearing off between doses if taken too far apart. She notes other medications tried make her have a feeling of fullness. She felt that she laid in bed for 6 months until gabapentin was started. Since starting the gabapentin she feels it has helped the degree and severity of pains she has including chest or facial pains.. In looking at something she feels there are flashes/spots which can be at any time. At the time of these instances she is very tired afterwards. She has also had instances of her leg shaking/tremoring which occurs if on her feet for length of time. In the tingling in both sides of the entire body without loss of consciousness. She states she hydrates well when was working. She states she is not eating regularly. She eats once a day on average, a smaller meal. She eats meats. She notes at times she craves salt. She states she has had cardiac testing including Zio patch for 3 days, echocardiogram, carotid duplex, and stress test and was told it was all negative. There is discussion over tilt table testing but has not been performed yet. She notes her only medications are gabapentin, flonase and reflux medication. She had been on lexapro but gave her increased tremors and leg shakes. She cannot recall being on duloxetine but thinks it may have made her head cloudy, Other treatment included physical therapy in 05/2024 including water therapy. She felt good in therapy but once out of water she would begin to have lower back pains. She has home exercises she admits she is poor in performing. She denies history of seizures even in childhood. She denies history of head injury or stroke. She denies blackouts or episodes of lost time. She states she had EMG and only was told it was normal. She states this involved the lower extremities and lower back. PAST MEDICAL HISTORY Diagnosis Date Hypertriglyceridemia Myalgia Obesity (BMI 30-39.9) Subclinical hypothyroidism Tobacco use Vitamin D insufficiency PAST SURGICAL HISTORY Procedure Laterality Date CARPAL TUNNEL Right 12/2017 DELIVERY ONLY x1 CHOLECYSTECTOMY age 20 LIGATE FALLOPIAN TUBE Current Outpatient Medications on File Prior to Visit Medication Sig PHENYLephrine-Acetaminophen (TYLENOL SINUS HEADACHE) 5-325 mg tab Take 2 tablets by mouth as needed. DULoxetine (CYMBALTA) 30 mg capsule Take 1 capsule by mouth once daily. No current facility-administered medications on file prior to visit. Social History Tobacco Use Smoking status: Every Day Current packs/day: 1.00 Average packs/day: 1 pack/day for 30.0 years (30.0 ttl pk-yrs) Types: Cigarettes Smokeless tobacco: Never Substance Use Topics Alcohol use: Yes Comment: rarely, once a year Drug use: No ALLERGIES No Known Allergies Review of Systems: Constitutional: denies fever, weight loss, loss of appetite ENT: denies loss of hearing, +/- vertigo Vision: + blurring vison, -double vision/diplopia Dermatologic: denies rash Cardiopulmonary: + chest pain, +palpitations, -skipp (more content not included)...[facility]06-06-2025 History of Present illness Narrative* Alexx Mace, DO - 08/12/2024 12:52 PM EDT [facility] Neurologic [place] New Patient Consultation August 12, 2024 ++ Clarified with her that she was scheduled with myself in general neurology not in the Neu[facility]uscular [facility], she still wishes to be seen++ HPI: Ms. Glasgow, who is accompanied by her sister with her permission, presents today secondary to issues of paresthesia at the request of Dr Kary Galindo. Also noted is referral for both neurology andneurosurgery over opinion on meningioma. She states that in 07/2023 she was at work when she had a sudden feeling of heart racing and hot tingles throughout my whole body. The episode lasted seconds but were recurrent with position changes. Each episode could last a minute or so. She had her son take her to the emergency room 08/04/[address] brain performed noting a small mass was found and followed up with MRI brain where small frontal mass noted thought consistent with meningioma. She was told that it was thought she washaving an anxiety attack as to cause of her symptoms. She was referred to neurology but not able linus seen for some time, eventually seeing Dr Galindo 09/16/2023 who performed EEG 10/2023 which showed frontal sharps waves greater on the right which lead him to have her start levetiracetam which made her feel fuzzy and my head is full. This was stopped and she was tried on other seizure medication (zonisamide and briviact per chart) she cannot name but states these gave her similar feelings. She was eventually started on gabapentin at 300 mg three times a day and increased quickly to 400 mg three times a day. She feels it has lessened the intensity of palpitations and intensity of the tinglingsensations. If she forget's a dose she can tell and there is a wearing off between doses if taken too far apart. She notes other medications tried make her have a feeling of fullness. She felt that she laid in bed for 6 months until gabapentin was started. Since starting the gabapentin she feels ithas helped the degree and severity of pains she has including chest or facial pains.. In looking at something she feels there are flashes/spots which can be at any time. At the time of these instances she is very tired afterwards. She has also had instances of her leg shaking/tremoring which occurs if on her feet for length of time. In the tingling in both sides of the entire body without loss of consciousness. She states she hydrates well when was working. She states she is not eating regularly. She eats once a day on average, a smaller meal. She eats meats. She notes at times she craves salt. She states she has had cardiac testing including Zio patch for 3 days, echocardiogram, carotid duplex, and stress test and was told it was all negative. There is discussion over tilt table testing but has not been performed yet. She notes her only medications are gabapentin, flonase and reflux medication. She had been on lexapro but gave her increased tremors and leg shakes. She cannot recall being on duloxetine but thinks it may have made her head cloudy, Other treatment included physical therapy in 05/2024 including water therapy. She felt good in therapy but once out of water she would begin to have lower back pains. She has home exercises she admitsshe is poor in performing. She denies history of seizures even in childhood. She denies history of head injury or stroke. She denies blackouts or episodes of lost time. She states she had EMG and only was told it was normal. She states this involved the lower extremities and lower back. PAST MEDICAL HISTORY Diagnosis Date Hypertriglyceridemia Myalgia Obesity (BMI 30-39.9) Subclinical hypothyroidism Tobacco use Vitamin D insufficiency PAST SURGICAL HISTORY Procedure Laterality Date CARPAL TUNNEL Right 12/2017 DELIVERY ONLY x1 CHOLECYSTECTOMY age 20 LIGATE FALLOPIAN TUBE Current Outpatient Medications on File Prior to Visit Medication Sig PHENYLephrine-Acetaminophen (TYLENOL SINUS HEADACHE) 5-325 mg tab Take 2 tablets by mouth as needed. DULoxetine (CYMBALTA) 30 mg capsule Take 1 capsule by mouth once daily. No current facility-administered medications on file prior to visit. Social History Tobacco Use Smoking status: Every Day Current packs/day: 1.00 Average packs/day: 1 pack/day for 30.0 years (30.0 ttl pk-yrs) Types: Cigarettes Smokeless tobacco: Never Substance Use Topics Alcohol use: Yes Comment: rarely, once a year Drug use: No ALLERGIES No Known Allergies Review of Systems: Constitutional: denies fever, weight loss, loss of appetite ENT: denies loss of hearing, +/- vertigo Vision: + blurring vison, -double vision/diplopia Dermatologic: denies rash Cardiopulmonary: + chest pain, +palpitations, -skipped heart beats Respiratory: + shortness of breath w/ minimal exertion GI: denies recent nausea, vomiting, diarrhea, constipation : denies incontinence Psych: + depression, -anxiety, -suicidal thoughts Sleep: + issues with sleeping Heme: denies easy bruising/bleeding Musculoskeletal: +weakness, -muscle atrophy, joint ache/pain Back/spine: + low back, -mid back, -cervical pains Neuro: denies seizure, blackout, +tremors, +weakness, +loss of feeling, +lightheadedness/dizziness,+paresthesia, facial paresthesia, facial weakness, difficulty in speech, slurring of words, dysarthria, dysphagia, memory loss, headache Physical Exam: 08/12/24 1252 BP: 144/68 Pulse: 84 Patient is alert and in no distress. Dress is appropriate. Mood is appropriate Heart is regular rate and rhythm with no murmur or bruit auscultated Breathing appears regular and unstressed Neurologic examination: Cognitively intact. No deficits. No formal MMSE performed. CN: Pupils equal and reactive to light, extraocular movements intact with no nystagmus, face is symmetric with no facial droop, facial sensation intact bilaterally to light touch V1-3, hearing intactbilaterally, shoulder shrug is symmetric Ophthalmologic exam: Fundis is sharp with no evidence of edema noted. Motor exam shows 5/5 strength symmetric through the upper and lower extremities in all groups tested Sensory intact to light touch and temperature in all extremities. Vibratory sensation is decreased at the first toes bilaterally. Deep tendon reflexes are symmetric at the biceps, brachioradialis, triceps, patella, and Achilles bilaterally Gaines's responses are both flexion. Coordination: No dysmetria on finger to nose. No tremors noted. No drift seen Gait wide based with external rotation of the right foot not quite normal. Romberg absent No afferent pupillary defect Labs/studies: EMG and nerve conduction study bilateral lower extremities 04/2024 1. The bilateral lower extremitysensory and motor conduction studies are within normal limits. 2. Normal monopolar needle examination from a broad sampling of bilateral lower extremity and lumbar paraspinal muscles. 3. Normal H reflexes. MRI brain w/ and w/o contrast 02/10/2024 report noting Small right frontal meningioma., and in thebody or report There is an extra-axial enhancing lesion over the right frontal lobe, about 14 mm in diameter and 10 mm in thickness. There is mild impingement of the frontal lobe. There is no abnormal signal within the underlying brain. MRI thoracic spine w/ and w/o contrast 12/25/2023 report noting 1. No significant spinal canal stenosis or neural foraminal narrowing. 2. No abnormal enhancement. 3. Scattered perineural cysts. MRI cervical spine w/ and w/o contrast 12/25/2023 report noting 1. No acute osseous abnormality. 2. No abnormal cord signal or enhancement. 3. Minimal central disc bulge at C5-C6 without significantspinal canal or neural foraminal narrowing. MRI lumbar spine w/ and w/o contrast 12/29/2023 report noting 1. Multilevel degenerative changes greatest at L3-4 and L4-5 as described above. No significant central canal stenosis or neural foraminal stenosis. 2. There is superimposed low-grade diffuse marrow signal changes of the vertebral bodies, nonspecific, which may be secondary to red marrow reconversion associated with myeloproliferativedisorder, chronic anemia, smoking, among other etiologies. Correlation with clinical findings may be useful. 3. At L4-L5, there is bilateral facet mild osseous edema, right greater than left as well as bilateral facet mild periarticular soft tissue inflammatory change, right greater than left compatible with degenerative change. Correlation with clinical findings for potential facet syndrome may be useful. EEG of uncertain date noting this is a normal awake and drowsy EEG. EEG of 10/2023 report noting this is an abnormal awake and drowsy EEG due to the presence of focal slowing and sharp waves in the right greater than left temporal regions. MRI brain w/ and w/o contrast report from 07/30/2023 noting 1. Small right frontal lobe lesion mostlikely representing meningioma. Otherwise normal MRI of the brain with and without contrast. CT brain w/o contrast report 07/30/2023 noting 1. No cute intracranial abnormality. Outside blood work reviewed includin06/07/2024: Vit B12 (699), folate, Hep B surf, Hep C Ab, SSA Ab, Lyme (neg), Rheum factor, DARYL (+ 1:80), Vit B6, serum copper (79), C-ANCA, P-ANCA, Paraneoplastic Ab panel (-, see subunits) 08/11/2023 lipid panel (TG 290, HDL 26, LDL 110), vit B12 (401), HbA1c (5.6) 07/30/2023: CBC, BMP, TSH (5.96), T4, trop I Assessment: R20.2 Paresthesia (primary encounter diagnosis) Comment: whole body and intermittent more with positional changes. Question of orthostatic hypotension with other question of partial seizures noting previous EEG initially noting intermittent sharp waves and focal slowing greater in the right side but no epileptiform discharges. Second EEG was read as normal. Whole body episodes may still represent generalized seizure but would expect more changes in mentation with this. Orthostatic hypotension, other metabolic cause, and/or anxiety remain in the differential D32.9 Cerebral meningioma Comment: right frontal with slight indentation of the underlying brain parenchyma. No changes in the signal of the underling brain parenchyma. Likely chronic and discovered incidentally. PLAN: Chart reviewed including previous/interval progress notes, messages, recent imaging, and laboratoryresults. 2. Discussed options with the patient and after discussion she elects to the below. 3. Asked to stay well hydrated, eat well including enough proteins, and take time (2 minutes) with position changes to help avoid orthostatic hypotension 4. Will need to transfer images she brought with her to main system for review. Asked for her help in contacting radiology department to facility transfer. 5. Needs records including EMG report (found after encounter in transferred records), cardiology reports and testing results. 6. Blood tests. DARYL w/ reflex, immunofixation 7. Will have her return for inpatient EEG monitoring (EMU) for potential partial seizures 8. She elects to continue gabapentin but increase from 400 mg to 600 mg three in steps. 9. She mentions muscle biopsy to be done early 09/2024 ask these results be forwarded. 10. Continue to follow with Dr Galindo her local neurologist Thank you for allowing me to see this patient if there are any question or concerns please feel free to contact me at my clinic. Sincerely, Alexx Mace D.O. documented in this encounter[facility] Discharge summary [facility] Medical Records Department [address] [place] [address] Emergency Department Summary 07/16/24 MR#: [id number] Acct: [id number] Name: FAUSTINA GLASGOW Rep #:[id number] : 1975 49 From: Adal Dempsey MD PCP: Dr. Savita Ahn MD Status:REG ER Location: ED HPI History of Present Illness Chief Complaint: Palpitations Narrative Narrative: 49-year-old female presents with her daughter because of chest heaviness that she has had for the last few days. She states has been consistent and constant. She has not had any fevers or chills, no cough, no nausea or vomiting, no diaphoresis. She states that sometimes she gets winded and short ofbreath whenshe exerts herself. She describes it more as a chest heaviness, but sometimes can be sharp and stabbing more towards the left side and towards the middle of her chest. She does have past medical history of thyroid problems which she states that her primary care provider may have overcorrected. She also sees a neurologist because she has tingling sensation throughout her body. She takesgabapentin 400 mg 3 times a day for this. She states that she has had multiple studies done on her heart including echocardiogram and stress test. She states she has had this heaviness previously, but not as severe and constant over the last few days. She is a smoker. [facility] Medical History Seizure disorder Meningioma Meningioma Vitamin deficiency Gallstones Carpal tunnel syndrome Home Medications ?Medication ?Instructions ?Recorded ?Last Taken ?Type marisabel.stocking,thigh,reg,med #24 ea 08/25/23 Unknown Rx fluticasone propionate 50 1 spray intranasal QDAY 04/09 10/31 Unknown History mcg/actuation nasal spray,suspension (Flonase Allergy Relief) gabapentin 400 mg capsule 400 mg PO TID 04/26/24 Unkno wn History esomeprazole magnesium 40 mg 40 mg PO QDAY #90 caps Unknown Rx capsule,delayed release Allergy/AdvReac Type Severity Reaction Status Date / Time No Known Allergies Allergy Verified 04/26/24 07:57 Family History Mother Diabetes Father Heart disease Myocardial infarction, Onset Age: 46 Surgical History S/P cholecystectomy History of carpal tunnel surgery H/O: Social History adopted: No household members: spouse, family and children housing: house number of children: 5 current occupational status: employed current occupation: [employer] pets and animals: Yes sexually active: Yes Smoking Status: Current every day smoker tobacco type: cigarettes Tobacco: How many years used: 35 Electronic Cigarette Use: not used quit status: considering quitting alcohol intake: never substance use type: does not use caffeine: Yes (4) Type: carbonated beverages what type of physical activity do you participate in: none seatbelt use: always do you feel safe at home: Yes ROS ROS ED ROS Narrative Constitutional: No fever, no chills. HEENT: No sore throat. No neck pain. No loss of vision. No rhinorrhea. Cardiovascular: Positive chest heaviness and also stabbing chest pain. Occasional palpitations. No pedal edema. Respiratory: No cough, intermittent shortness of breath. Abdominal: No abdominal pain. No nausea. No vomiting. Neurologic: No headaches. No dizziness. No lightheadedness. Psychiatric: Positive depression. No anxiety. EXAM Physical Exam Narrative Exam Narrative: Afebrile. Vital signs noted. Nontoxic-appearing. Cardiovascular examination reveals a regular rate and rhythm. Lungs are clear to auscultation bilaterally. Abdomen is soft, nontender without guardingor rebound. Positive bowel sounds. Neurological examination is nonfocal and nonlateralizing. No pedal edema. Const Vital Signs: 07/16/24 03:02 07/16/24 03:02 07/16/24 03:17 Temperature 98.6 F Temperature Source Oral Pulse Rate 97 Respiratory Rate 16 Respiratory Effort Normal Non-Labored Blood Pressure 157/63 H Blood Pressure Mean 94 Pulse Ox 98 98 Oxygen Delivery Method Room Air Room Air 07/16/24 04:02 07/16/24 05:00 Temperature Temperature Source Pulse Rate 86 71 Respiratory Rate 17 16 Respiratory Effort Blood Pressure 134/54 H 139/56 H Blood Pressure Mean 80 83 Pulse Ox 98 98 Oxygen Delivery Method Room Air Room Air Heart Score History: Slightly/Non-Suspicious ECG: Normal Age: >45 - <65 years Risk Factors: 1 or 2 Risk Factors Troponin: Score: 2 MDM MDM MDM Narrative Medical decision making narrative: Differential diagnosis includes ACS versus pneumonia versus pneumothorax. I feel there is low probability for pulmonary embolism as her pulse ox is 98% on room air and she denies any DVT or PE risk factors. I feel her Wells score is low as well. Also the differential diagnosis would be anxiety and depression. Chest pain workup was pursued. EKG obtained and interpreted by myself independently as normal sinusrhythm at 97 bpm without ectopy or acute ST changes. No STEMI. I reviewed her prior records and vins have history of chest pain and workup previously. I reviewed her laboratory work and she has normal white count 9.8 with hemoglobin 15.2 and hematocrit 46. She has had a hemoglobin elevated in the past when compared to prior labs. Platelet count normal at 258. Electrolyte panel is grossly unremarkable except for glucose elevated at 203. Normal anion gap of 13. Initial high-sensitivity troponin is 6. On my individual interpretation of her chest x-ray, there is no acute process, no pneumonia, no pneumothorax. I reviewed the radiology report which confirms my independent interpretation. As she has had the feeling of not feeling well for about a year, I do feel that depression and anxiety may play a role in her symptomatology. As long as her repeat troponin is negative, I feel that she can be discharged to follow-up withher neurologist and her primary care provider. Her repeat troponin is less than 6 for an acceptable delta troponin. At this point in time, upon repeat examination, she states she feels the same. She feels that this may be more muscular or neurological in nature. She states she needs to follow-up with a neuromuscular physician. I feel she can bedischargedto follow-up given her negative workup here in the emergency department. Returninstructions to the emergency department were reviewed. Disposition is discharged home in stable condition. History & Record Review Discussion w/independent historian: Patient Additional record(s) reviewed:: Prior ED visit and Prior labs Lab Data Attestation: I reviewed the patient's lab results. Labs: Laboratory Results - last 24 hr 07/16/24 07/16/24 03:07 05:10 WBC 9.8 RBC 5.51 H Hgb 15.2 H Hct 46.0 MCV 83.5 MCH 27.6 MCHC 33.0 RDW Std Deviation 44.2 H RDW Coeff of Leia 14.6 Plt Count 258 MPV 10.8 Immature Gran % (Auto) 0.600 Neut % (Auto) 56.2 Lymph % (Auto) 37.9 Mills % (Auto) 3.6 Eos % (Auto) 1.3 Baso % (Auto) 0.4 Absolute Neuts (auto) 5.5 Absolute Lymphs (auto) 3.70 Nucleated RBC % 0 Sodium 138 Potassium 4.0 Chloride 103 Carbon Dioxide 21.9 Anion Gap 13 BUN 9 Creatinine 0.91 Estim Creat Clear Calc 82.99 Est GFR (MDRD) Non-Af 77 BUN/Creatinine Ratio 9.8 L Glucose 203 H Calcium 9.2 Troponin T High Sens 6 Troponin T Hi Sens 2 Hr < 6 Radiography Chest X-Ray - ED: 1 View, Read by ED Physician, Read by Radiologist and No AcuteDisease Diagnostic Testing: Clinical Impression(s) from Imaging Studies Chest X-Ray 07/16/24 03:20 IMPRESSION: No evidence of acute disease. Reading Location: [facility] Discharge Plan Triage Chief Complaint: Palpitations ED Provider: Adal Dempsey Dx/Rx/DC Orders Clinical Impression: Chest pain, Chest pressure Instructions: ED Chest Pain, Noncardiac, ED Chest Pain, Uncertain Cause Prescriptions: No Action (DME) marisabel.stocking,thigh,reg,med Misc See Rx Instructions .Route Qty: 24 0RF Rx Instructions: As directed gabapentin 400 mg capsule 400 mg PO TID fluticasone propionate [Flonase Allergy Relief] 50 mcg/actuation spray,suspension 1 spray intranasal QDAY Rx Instructions: administer into each nostril esomeprazole magnesium 40 mg capsule,delayed release(DR/EC) 40 mg PO QDAY Qty: 90 1RF Primary Care Provider: Savita Ahn Referrals: Savita Ahn MD [Primary Care Provider] - As soon as possible Activity Restrictions/Additional Instructions: Follow-up with your primary care provider. Follow-up with your neuromuscular physician as well. Return with new or worsening symptoms. Print Language: Burmese Disposition Disposition: Home, Self Care What to do if you have Problems For any increased pain, shortness of breath, bleeding, nausea or vomiting, chestpain, or any unexpected problems, contact your Primary Care Provider. Call [facility] ([phone]) or report tothe closest Emergency Room. Call 911 if necessary. 07/16/24 0549 Cosigner Signature (if applicable): CC: Dr. Savita Ahn MD ~ Signed [facility]05-10-2025 Radiology Diagnostic study note [facility] Imaging Services [address] [place], [place] [address] Chest 1 View (Portable) MR#: [id number] Acct: [id number] Name: FAUSTINA GLASGOW Rep #: [id number] : 1975 F 49 From: Gm Obrien MD PCP: Dr. Savita Ahn MD Status: PRE ER Study:Chest 1 View (Portable) Date of Exam: 07/16/24 Exam# [id number] Ordering Dr: Adal Dempsey MD PROCEDURE: CHEST 1 VIEW (PORTABLE) 07/16/2024 REASON FOR EXAM: CHEST PAIN TECHNIQUE: Frontal view of the chest. COMPARISON: 01/01/2024 FINDINGS: The lungs appear clear. Pulmonary vascularity appears within limits. No pleural effusion. Cardiac and mediastinal contours appear within limits. The visualized osseous structures appear within limits. RAD/Chest 1 View (Portable) IMPRESSION: No evidence of acute disease. Reading Location: [id number] CC: Dr. Adal Dempsey MD; Dr. Savita Ahn MD ~ Data Governance Consultant: Signed [facility]05-08-2025 Discharge summary Author Fredo Sepulveda [facility] Note Date/Time July 14, 2024 4:04pm [facility] [address] [place] [address] / REHABILITATION SERVICES DISCHARGE SUMMARY MR#: [id number] Acct: [id number] Name: FAUSTINA GLASGOW Rep #: [id number] : 1975 49 From: Fredo Sepulveda DPT, OCS, CSCS Referring Dr.: Dr. Savita Ahn MD Status: REG RCR Insurance: [facility] S[employer]Y [employer]URANCE Discharge Summary D/C summary: It has been my pleasure to treat FAUSTINA GLASGOW referred by Dr. Savita Ahn MD, with the diagnosis of LBP with B sciatica for a total of 10 visit(s). Discharge Date: 06/03/24 Please see the following information for a summary of their discharge status. Subjective Subjective: Feels pretty good in the pool and better for the most part when out. I have my days though. Some days better than others. Walking seems to make R leg pain worse. Walking to back of [employer] is a problem. HEP going well. Sleep is not great. pain management is next management. Pain LBP: Pain Intensity (Out of 10): 7 Bilat hips: Pain Intensity (Out of 10): 8 L calf: Pain Intensity (Out of 10): Unrated Overall Improvement % Improvement: 3 Objective Objective/Function: Walking gingerly with R antalgia today and shor t L step length. , R hip ROM IR and er very painful and limtied compared to L as is flexion. + R OLAMIDE and FADDIR. Lumbar ROM mod limtied in extension with increaseed R LBP, B SB are ok, flexion is limited and painful R posteerior hip. Pt not improving in ROM or subjeective and susupicious for hip involvement also which I would clear before focussing on back pain management Goals Goal 1:: Pain in LB and legs 3/10 at worst adn 75% improved Goal Progress: Not Progressing Goal 2:: Have minimal movement in pelvis and only min deficits in lumbar ROM without incrasd pain past 2/10 Goal Progress: Not Progressing Goal 3:: I appropriate himee, gym, pool ex to limit future problems. Goal Progress: Goal Met Goal 4:: sleep without interruption from LBP Goal Progress: Not Progressing Goal 5:: oswestry score5 or better Goal Progress: Not Progressing Goal 6:: Walk without hsitation with reciprocal non stiff movements into Pt clinic Goal Progress: Not Progressing Plan Plan: d/c, pt to contact doctor regarding lack of progress and next step, continue HEP in the meantime. D/C Information Discharge Comments: Pt not progressing with pain and wishes to take next step. d/c sentence: If there are questions or concerns regarding this patient's physical therapy, please feel free to call me at [phone]. Thank you for the referral of thispatient. Sincerely, Fredo Sepulveda DPT, OCS, CSCS Balance/Gait/Functional tests Balance/Special Test Scores Oswestry Low Back Score: 17 Improvement % Improvement: 3 <Electronically signed by Fredo Sepulveda DPT, CARMEL, CSCS> 07/14/24 1604 CC: Dr. Savita Ahn MD ~ [facility] Work Phone: 1(611) 871-459405-08-2025 Discharge summary [facility] [address] [place] [address]. [address] [place] [address] / REHABILITATION SERVICES DISCHARGE SUMMARY MR#: [id number] Acct: [id number] Name: FAUSTINA GLASGOW Rep #: [id number] : 1975 49 From: Fredo Derick DPT, OCS, CSCS Referring Dr.: Dr. Savita Ahn MD Status: REG RCR Insurance: [facility] SELF PAY INSURANCE Discharge Summary D/C summary: It has been my pleasure to treat FAUSTINA GLASGOW referred by Dr. Savita Ahn MD, with the diagnosis of LBP with B sciatica for a total of 10 visit(s). Discharge Date: 06/03/24 Please see the following information for a summary of their discharge status. Subjective Subjective: Feels pretty good in the pool and better for the most part when out. I have my days though. Some days better than others. Walking seems to make R leg pain worse. [facility]. HEP going well. Sleep is not great. pain management is next management. Pain LBP: Pain Intensity (Out of 10): 7 Bilat hips: Pain Intensity (Out of 10): 8 L calf: Pain Intensity (Out of 10): Unrated Overall Improvement % Improvement: 3 Objective Objective/Function: Walking gingerly with R antalgia today and shor t L step length. , R hip ROM IRand er very painful and limtied compared to L as is flexion. + R OLAMIDE and FADDIR. Lumbar ROM mod limtied in extension with increaseed R LBP, B SB are ok, flexion is limited and painful R posteerior hip. Pt not improving in ROM or subjeective and susupicious for hip involvement also which I would clearbefore focussing on back pain management Goals Goal 1:: Pain in LB and legs 3/10 at worst adn 75% improved Goal Progress: Not Progressing Goal 2:: Have minimal movement in pelvis and only min deficits in lumbar ROM without incrasd pain past 2/10 Goal Progress: Not Progressing Goal 3:: I appropriate himee, gym, pool ex to limit future problems. Goal Progress: Goal Met Goal 4:: sleep without interruption from LBP Goal Progress: Not Progressing Goal 5:: oswestry score5 or better Goal Progress: Not Progressing Goal 6:: Walk without hsitation with reciprocal non stiff movements into Pt clinic Goal Progress: Not Progressing Plan Plan: d/c, pt to contact doctor regarding lack of progress and next step, continue HEP in the meantime. D/C Information Discharge Comments: Pt not progressing with pain and wishes to take next step. d/c sentence: If there are questions or concerns regarding this patient's physical therapy, please feel free to call me at [phone]. Thank you for the referral of thispatient. Sincerely, Fredo Sepulveda, DPT, OCS, CSCS Balance/Gait/Functional tests Balance/Special Test Scores Oswestry Low Back Score: 17 Improvement % Improvement: 3 07/14/24 1604 CC: Dr. Savita Ahn MD ~ [facility]igned [facility]02-18-2025 Evaluation note* Diagnosis Onset Date Resolution Status Admit Date Dizziness acute April 26, 2024 7:56am Meningioma acute April 26, 2024 7:56am Moderate major depression noneactive April 26, 2024 7:56am Smokes cigarettes noneactive 2024 7:56am Palpitations noneactive April 7:56am Influenza vaccination declined nonea ctive April 26, 2024 7:56am Perineural cyst noneactive April 26, 2024 7:56am Elevated TSH noneactive April 7:56am Chronic low back pain with bilateral sciatica noneactive April 7:56am Gastroesophageal reflux disease noneactive April 26, 025 7:56am [facility] Work Phone: 1(887) 955-708210-18-2024 Note ORIGINAL EXAMINATION: MRI OF THE THORACIC [...] Sign Date: 12/25/2023 4:23:33 PM Ordering Provider: [facility]10-18-2024 Note ORIGINAL EXAMINATION: MRI OF THE CERVICAL [...] Sign Date: 12/25/2023 4:25:43 PM Ordering Provider: [facility]09-24-2024 Hospital Discharge instructions Patient Education 12/01/2023 21:04:38 Headache, Unspecified Headache, Unspecified A number of things can cause headaches. The cause of your headache isn t clear. But it doesn t seemto be a sign of any serious illness. [...] face You have trouble talking or seeing 4393-5871 [employer]. [address] [place] [address]. All rights reserved. This information is not intended as a substitute for professional medical care. Always follow yourhealthcare professional's instructions. Follow Up Care 12/01/2023 19:22:21 With:SAVITA AHN MD Address: [facility] [address] [place] [address]- When:2-4 days With:ANTONETTE DELGADO DO Address: [address] [place] [address] [place] [phone]- [phone] When:2-4 days [facility] 09-24-2024 Note Discharge Instructions Thank you for allowing [facility] to assist you with your healthcare needs. The following is importantdischarge information regarding your hospital visit. What to Do Next Instructions from Your Care Team No qualifying data available. Post Acute Orders No qualifying data available. You Need to Schedule the Following Appointments Follow Up with SAVITA AHN MD When:Within 2-4 days Where:[facility] [address] [place] [address]- Follow Up with ANTONETTE DELGADO DO When:Within 2-4 days [facility] [phone] Allergies NKA Medications Please ask your primary doctor or pharmacist before taking any other medication not listed, including over the counter drugs, herbal medications, vitamins and or supplements as they may interact withyour home medications. What How Much When Instructions [...] caffeine (a SEET a MIN oh fen, bukeenan JAIRO bi jairo, and KADean een) Esgic, Fioricet, Zebutal What is the [...] Acetaminophen is a pain reliever and fever atmospheric chemist. Butalbital is in a group of drugs called barbiturates. It relaxes muscle contractions involved in atension headache. Caffeine is a central nervous system stimulant. It relaxes muscle contractions in blood vessels to improve blood flow. Acetaminophen, butalbital, and caffeine is a combination medicine used to treat tension headaches that are caused by muscle contractions. Acetaminophen, butalbital, and caffeine may also be used for purposes not listed in this medicationguide. What should I discuss with my healthcare [...] baby. If you use butalbital while you are, your baby could become dependent on the [...] in a place where others cannot get toit. Selling or giving away this medicine is [...] dose if it is almost time for yournext scheduled dose. Do not use extra medicine [...] may include pain in your upper stomach, darkurine, and yellowing of your skin or the [...] a rash that spreads and causes blistering andpeeling. If you have this type of reaction, [...] may report side effects to FDA at 5-045-QLI-9870. What other drugs will affect acetaminophen, butalbital, [...] acetaminophen, butalbital, and caffeine, including prescription and iiep-did-uuarecu medicines, vitamins, and herbal products. Tell your [...] to ensure that the information provided by [employer]. ('[employer]') is accurate, up-to-date, and complete, but no guarantee is made to that effect. Drug information contained herein may be time sensitive. [employer] information has been compiled for use by healthcare practitioners and consumers in the [place] and therefore [employer] does not warrant that uses outside of the [place] are appropriate, unless specifically indicated otherwise. [employer] drug information does not endorse drugs, diagnose patients or recommend therapy. [employer] drug information isan informational resource designed to assist licensed healthcare practitioners in caring for their p atients and/or to serve consumers viewing this service as a supplement to, and not a substitute for, the expertise, skill, knowledge and judgment of healthcare practitioners. The absence of a warningfor a given drug or drug combination in no way should be construed to indicate that the drug or drug combination is safe, effective or appropriate for any given patient. [employer] does not assume any responsibility for any aspect of healthcare administered with the aid of information [employer] provides. The information contained herein is not intended to cover all possible uses, directions, precautions, warnings, drug interactions, allergic reactions, or adverse effects. If you have questions about the drugs you are taking, check with your doctor, nurse or pharmacist. Copyright 0225-3161 [employer]. Version: 8.01. Revision Date: 03/29/2021. Education Materials Headache, Unspecified A number of things can cause headaches. The cause of your headache isn t clear. But it doesn t seemto be a sign of any serious illness. [...] face You have trouble talking or seeing 7829-8278 [employer]. [address] [place] [address], [place] [address]. All rights reserved. This information is not intended as a substitute for professional medical care. Always follow yourhealthcare professional's instructions. Additional Information VACCINATE! IT SAVES LIVES! Members of the community who have not yet received the COVID-19 vaccine and would like to receive it can visit one of [facility] vaccine clinics. There are many vaccine clinic locations within the [facility]. For locations and available times, please visit www.gettheshot.coronavirus.[place].gov/. It is important to note that some COVID mobile vaccine clinics are held outdoors and may be canceled in rainy or stormy conditions. To learn more about pediatric vaccinations (ages 5-11), we invite you to visit the [facility] webpage. https://www.[facility].org/pages/2000-Bbzun-Nqbgvugdyrl-Cgpcpwzwwn-Khrid-Tyn stions.htmlTo learn more about the COVID-19 vaccine, we invite you to visit the CDC website for a list of frequently asked questions. https://www.cdc.gov/coronavirus/2019-ncov/vaccines/faq.html [facility] Patient Portal Access Instructions: Stay connected with your healthcare team and access your personal medical information anytime with the [facility] Patient Portal. If you would like a full copy of your medical records please contact the [facility] Medical Records Department Thursday through Thursday between 8a.m. and 4:30p.m. Please follow the directions below to access the portal: 1.Access the email account you provided upon registration to the [facility].2.Look for an invitation email from [facility].3.Open the email and access the invitation link: Accept Invitation to [employer]4.Fill in the required oviedo to create your account. Sign into [email or web address] with your username and password that you [...] you will allow to register on the [facility] Patient Portal for access to your information. You can also access the [facility] Patient Portal on the [employer]. Simply click on Health Records under [email or web address] and then click on the [facility] logo. HOW TO SAFELY DISPOSE OF PRESCRIPTION MEDICATIONS Please use one of the following methods to safely dispose of your unused medications. 1.Use a drug disposal kit: the drug disposal pouch allows you to safely discard your old and unuseddrugs. Ask your nurse to give you one when you are discharged.2.Visit a local take-back location: Many local pharmacies and police departments have programs that collect old and unwanted prescriptiondrugs. Call your local pharmacy or go to http://Koemei.GroundedPower/7K9Nc5b to find one close to you.3.Make use of household items: Use cat litter or old coffee grounds to dispose medications if other options arenot available. Mix your drugs with these household products, seal them in an airtight container andthrow it into the garbage. Call [facility]: [phone] to be sure your drugs can be [...] drowsiness, such as benzodiazepines, also known as benzos,including diazepam and alprazolam, muscle relaxants or sleep aids. Never sell or share prescriptionopioids. This is illegal. Store opioids in a secure place and out of reach of others (including children, family, friends and visitors). The last page(s) of this document has been signed and retained as a CHART COPY Signatures Patient Education Materials Headache, Unspecified Medication Leaflets acetaminophen, butalbital, and caffeine My discharge plan and instructions have been reviewed and explained to me and I,FAUSTINA GLASGOW understand my current condition and have read and understand these discharge instructions. I have received a written copy of the plan/instructions. If I have questions, I am aware that I should contact my doctor. 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 Phone call placed to [facility] spoke to nurse advised of scheduling process (referral to Neurosurgery our office would need MRI testing results) none sent with original referral. [facility] will fax requested document then office will reach out to patient to initiate scheduling. Pau Briggs LPN [facility]06-06-2024 Miscellaneous Notes* Telephone Encounter - Pau Briggs LPN - 08/13/2023 10:38 AM EDT Referral received by fax in two parts on referral page, second contained office visit (patient was new to [facility] for Emergency Room follow up) not seen prior. Phone call placed to [facility] spoke to nurse advised of scheduling process (referral to Neurosurgery our office would need MRI testing results) none sent with original referral. [facility] will fax requested document then office will reach out to patient to initiate scheduling. Pau Briggs LPN * Telephone Encounter - Shane Lee RN - 08/13/2023 8:57 AM EDT [facility] phoned asking if neurology dept received a referral from them for this patient. They faxed one on 07-10-23 and 08-12-23. Verified correct fax number. Dx: neuralgia, benign neoplasm. They also faxed a referral to neuro surgeon. Asking office let them know if you received the referral. documented in this encounterSumma Health [facility]06-[facility] Telephone encounter Note * Telephone Encounter - Shane Lee RN - 08/13/2023 8:57 AM EDT [facility] phoned asking if neurology dept received a referral from them for this patient. They faxed one on 07-10-23 and 08-12-23. Verified correct fax number. Dx: neuralgia, benign neoplasm. They also faxed a referral to neuro surgeon. Asking office let them know if you received the referral. [facility]05-28-2024 History of Present illness Narrative* Billy Gomes PA - 08/04/2023 10:40 AM EDT 48-year-old female presents for lightheadedness and dizziness. [...] Did offer to schedule an appointment with [facility] PCP to establish care, but patient does not want to travel. She will keep her appointment with [facility] P[facility] Thursday and go to ER now for evaluation of her dizziness. documented in this encounterSumma Health W[facility]12-06-2023 History of Present illness Narrative* Ketty Goldman - 02/11/2023 2:34 PM EST POPULATION HEALTH NAVIGATION OUTREACH Action/I RP OUTREACH: Contacted patient to schedule HALEIGH [...] done Influenza Vaccine(1) Never done Navigation Signature: Ketty Goldman February 11, 2023 2:34 PM documented in this encounterSumma Health W[facility]12-01-2023 History of Present illness Narrative* Ketty Goldman - 02/06/2023 12:33 PM EST POPULATION HEALTH NAVIGATION OUTREACH Action/I RP OUTREACH: Contacted patient to schedule HALEIGH [...] done Influenza Vaccine(1) Never done Navigation Signature: Ketty Goldman February 06, 2023 12:33 PM documented in this encounterSumma Health W[facility]11-10-2023 History of Present illness Narrative* Lisy Fuentes RT(R) - 01/16/2023 11:00 AM EST Radiology Service Progress Note PATIENT NAME: Faustina Glasgow DATE OF SERVICE: January 16, 2023 TIME: 10:55 AM PATIENT IDENTITY VERIFICATION COMPLETED USING TWO (2) IDENTIFIERS: Name and Date of confirmedby patient verbally. FALL SCREENING: Has the patient [...] 16, 2023 10:55 AM documented in this encounterSumma Health Wad[facility]03-13-2023 History of Present illness Narrative* Tasha Souza PA-C - 05/19/2022 1:09 PM EDT 05/19/2022 Patient presents with: Head Congestion: Bilateral [...] plan. Tasha Souza PA-C documented in this encounterSumma Health Wad[facility]09-21-2022 History of Present illness Narrative* Latrice Lutz APRN.[facility] - 11/27/2021 11:39 AM EDT CC: Patient presents with: Ear Pain: Right ear pain x 2 days HPI: Faustina Glasgow is a 46 year old female who [...] Patient agreeable to treatment plan. Latrice Lutz APRN.CNP documented in this encounterSumma Health W[facility]11-23-2021 History of Present illness Narrative* Stanley Llanos RT(R) - 01/29/2021 11:10 AM EST Radiology Service Progress Note PATIENT NAME: Faustina Glasgow DATE OF SERVICE: January 29, 2021 TIME: 11:21 AM PATIENT IDENTITY VERIFICATION COMPLETED USING TWO (2) IDENTIFIERS: Name and Date of confirmedby patient verbally. FALL SCREENING: Has the patient [...] IV DATA: Not applicable SIGNED BY: RT Saul(Caesar) January 29, 2021 11:21 AM documented in this encounterSumma Health W[facility]ittman Medical CenterDischarge summary Author Adal Dempsey [facility] Note Date/Time July 16, 2024 5:49a m [facility] Medical Records Department [address] [place] [address] Emergency Department Summary 07/16/24 MR#: [id number] Acct: [id number] Name: FAUSTINA GLASGOW Rep #:[id number] : 1975 49 From: Adal Dempsey MD PCP: Dr. Savita Ahn MD Status:REG ER Location: ED HPI History of Present Illness Chief Complaint: Palpitations Narrative Narrative: 49-year-old female presents with her daughter because of chest heaviness that she has had for the last few days. She states has been consistent and constant. She has not had any fevers or chills, no cough, no nausea or vomiting, no diaphoresis. She states that sometimes she gets winded and short of breath whenshe exerts herself. She describes it more as a chest heaviness, but sometimes can be sharp and stabbing more towards the left side and towards the middle of her chest. She does have past medical history of thyroid problems which she states that her primary care provider may have overcorrected. She also sees a neurologist because she has tingling sensation throughout her body. She takes gabapentin 400 mg 3 times a day for this. She states that she has had multiple studies done on her heart including echocardiogram and stress test. She states she has had this heaviness previously, but not as severe and constant over the last few days. She is a smoker. [facility] Medical History Seizure disorder Meningioma Meningioma Vitamin deficiency Gallstones Carpal tunnel syndrome Home Medications ?Medication ?Instructions ?Recorded ?Last Taken ?Type marisabel.stocking,thigh,reg,med #24 ea 08/25/23 Unknown Rx fluticasone propionate 50 1 spray intranasal QDAY 04/09 10/31 Unknown History mcg/actuation nasal spray,suspension (Flonase Allergy Relief) gabapentin 400 mg capsule 400 mg PO TID 04/26/24 Unkno wn History esomeprazole magnesium 40 mg 40 mg PO QDAY #90 caps Unknown Rx capsule,delayed release Allergy/AdvReac Type Severity Reaction Status Date / Time No Known Allergies Allergy Verified 04/26/24 07:57 Family History Mother Diabetes Father Heart disease Myocardial infarction, Onset Age: 46 Surgical History S/P cholecystectomy History of carpal tunnel surgery H/O: Social History adopted: No household members: spouse, family and children housing: house number of children: 5 current occupational status: employed current occupation: [employer] pets and animals: Yes sexually active: Yes Smoking Status: Current every day smoker tobacco type: cigarettes Tobacco: How many years used: 35 Electronic Cigarette Use: not used quit status: considering quitting alcohol intake: never substance use type: does not use caffeine: Yes (4) Type: carbonated beverages what type of physical activity do you participate in: none seatbelt use: always do you feel safe at home: Yes ROS ROS ED ROS Narrative Constitutional: No fever, no chills. HEENT: No sore throat. No neck pain. No loss of vision. No rhinorrhea. Cardiovascular: Positive chest heaviness and also stabbing chest pain. Occasional palpitations. No pedal edema. Respiratory: No cough, intermittent shortness of breath. Abdominal: No abdominal pain. No nausea. No vomiting. Neurologic: No headaches. No dizziness. No lightheadedness. Psychiatric: Positive depression. No anxiety. EXAM Physical Exam Narrative Exam Narrative: Afebrile. Vital signs noted. Nontoxic-appearing. Cardiovascular examination reveals a regular rate and rhythm. Lungs are clear to auscultation bilaterally. Abdomen is soft, nontender without guarding or rebound. Positive bowel sounds. Neurological examination is nonfocal and nonlateralizing. No pedal edema. Const Vital Signs: 07/16/24 03:02 07/16/24 03:02 07/16/24 03:17 Temperature 98.6 F Temperature Source Oral Pulse Rate 97 Respiratory Rate 16 Respiratory Effort Normal Non-Labored Blood Pressure 157/63 H Blood Pressure Mean 94 Pulse Ox 98 98 Oxygen Delivery Method Room Air Room Air 07/16/24 04:02 07/16/24 05:00 Temperature Temperature Source Pulse Rate 86 71 Respiratory Rate 17 16 Respiratory Effort Blood Pressure 134/54 H 139/56 H Blood Pressure Mean 80 83 Pulse Ox 98 98 Oxygen Delivery Method Room Air Room Air Heart Score History: Slightly/Non-Suspicious ECG: Normal Age: >45 - <65 years Risk Factors: 1 or 2 Risk Factors Troponin: </= Normal Limit Score: 2 MDM MDM MDM Narrative Medical decision making narrative: Differential diagnosis includes ACS versus pneumonia versus pneumothorax. I feel there is low probability for pulmonary embolism as her pulse ox is 98% on room air and she denies any DVT or PE risk factors. I feel her Wells score is low as well. Also the differential diagnosis would be anxiety and depression. Chest pain workup was pursued. EKG obtained and interpreted by myself independently as normal sinus rhythm at 97 bpm without ectopy or acute ST changes. No STEMI. I reviewed her prior records and she does have history of chest pain and workup previously. I reviewed her laboratory work and she has normal white count 9.8 with hemoglobin 15.2 and hematocrit 46. She has had a hemoglobin elevated in the past when compared to prior labs. Platelet count normal at 258. Electrolyte panel is grossly unremarkable except for glucose elevated at 203. Normal anion gap of 13. Initial high-sensitivity troponin is 6. On my individual interpretation of her chest x-ray, there is no acute process, no pneumonia, no pneumothorax. I reviewed the radiology report which confirms my independent interpretation. As she has had the feeling of not feeling well for about a year, I do feel that depression and anxiety may play a role in her symptomatology. As long as her repeat troponin is negative, I feel that she can be discharged to follow-up withher neurologist and her primary care provider. Her repeat troponin is less than 6 for an acceptable delta troponin. At this point in time, upon repeat examination, she states she feels the same. She feels that this may be more muscular or neurological in nature. She states she needs to follow-up with a neuromuscular physician. I feel she can be dischargedto follow-up given her negative workup here in the emergency department. Returninstructions to the emergency department were reviewed. Disposition is discharged home in stable condition. History & Record Review Discussion w/independent historian: Patient Additional record(s) reviewed:: Prior ED visit and Prior labs Lab Data Attestation: I reviewed the patient's lab results. Labs: Laboratory Results - last 24 hr 07/16/24 07/16/24 03:07 05:10 WBC 9.8 RBC 5.51 H Hgb 15.2 H Hct 46.0 MCV 83.5 MCH 27.6 MCHC 33.0 RDW Std Deviation 44.2 H RDW Coeff of Leia 14.6 Plt Count 258 MPV 10.8 Immature Gran % (Auto) 0.600 Neut % (Auto) 56.2 Lymph % (Auto) 37.9 Mills % (Auto) 3.6 Eos % (Auto) 1.3 Baso % (Auto) 0.4 Absolute Neuts (auto) 5.5 Absolute Lymphs (auto) 3.70 Nucleated RBC % 0 Sodium 138 Potassium 4.0 Chloride 103 Carbon Dioxide 21.9 Anion Gap 13 BUN 9 Creatinine 0.91 Estim Creat Clear Calc 82.99 Est GFR (MDRD) Non-Af 77 BUN/Creatinine Ratio 9.8 L Glucose 203 H Calcium 9.2 Troponin T High Sens 6 Troponin T Hi Sens 2 Hr < 6 Radiography Chest X-Ray - ED: 1 View, Read by ED Physician, Read by Radiologist and No AcuteDisease Diagnostic Testing: Clinical Impression(s) from Imaging Studies Chest X-Ray 07/16/24 03:20 IMPRESSION: No evidence of acute disease. Reading Location: [facility] Discharge Plan Triage Chief Complaint: Palpitations ED Provider: Adal Dempsey Dx/Rx/DC Orders Clinical Impression: Chest pain, Chest pressure Instructions: ED Chest Pain, Noncardiac, ED Chest Pain, Uncertain Cause Prescriptions: No Action (DME) marisabel.stocking,thigh,reg,med Misc See Rx Instructions .Route Qty: 24 0RF Rx Instructions: As directed gabapentin 400 mg capsule 400 mg PO TID fluticasone propionate [Flonase Allergy Relief] 50 mcg/actuation spray,suspension 1 spray intranasal QDAY Rx Instructions: administer into each nostril esomeprazole magnesium 40 mg capsule,delayed release(DR/EC) 40 mg PO QDAY Qty: 90 1RF Primary Care Provider: Savita Ahn Referrals: Savita Ahn MD [Primary Care Provider] - As soon as possible Activity Restrictions/Additional Instructions: Follow-up with your primary care provider. Follow-up with your neuromuscular physician as well. Return with new or worsening symptoms. Print Language: Burmese Disposition Disposition: Home, Self Care What to do if you have Problems For any increased pain, shortness of breath, bleeding, nausea or vomiting, chestpain, or any unexpected problems, contact your Primary Care Provider. Call [facility] ([phone]) or report to the closest Emergency Room. Call 911 if necessary. 07/16/24 0549 <Electronically signed by Adal Dempsey MD> Cosigner Signature (if applicable): CC: Dr. Savita Ahn MD ~ Signed [facility] Work Phone: Evaluation + Plan note No data available for this section [facility] Evaluation + Plan note Future Appointments Appointment Date:12/28/2023 02:00:00 PM Scheduled Provider: Location:[facility] Appointment Type:MRI Spine Lumbar w/ + w/o Contrast Future Scheduled Tests Radiology* MRI Spine Lumbar w/ + w/o Contrast 12/28/23 [facility] Evaluation note* Diagnosis Encounter for screening mammogram for breast cancer [facility] [place] [facility] Diagnosis Acute otitis media, right- Primary Unspecified otitis media [facility] Acute frontal sinusitis, recurrence not specified- Primary [facility] [place] [facility]* Diagnosis Dizziness- Primary Dizziness and giddiness [facility]* Diagnosis Acute pain of left knee [facility] [place] [facility]* Diagnosis Pain of right thumb Pain in limb [facility] [place] [facility]* Diagnosis Paresthesia- Primary Disturbance of skin sensation Meningioma (HCC) Benign neoplasm of cerebral meninges [facility] Dis[facility] instructions No data available for this section [facility] Hospital Discharge instructions Additional Instructions Follow-up with your primary care provider. Follow-up with your neuromuscular physician as well. Return with new or worsening symptoms.[facility] Work Phone: Progress note No data available for this section [facility] Reason for referral (narrative)* Diagnostic Procedure Only (Routine) - Pending Review Specialty Diagnoses / Procedures Referred By Contac t Referred To Contact [facility] IMAGING Diagnoses Encounter for screening mammogram for breast cancer Procedures KIA SCREENING SCREENING MAMMOGRAPHY BI 2-VIEW BREAST INC CAD Alexx Segura MD [address] [place] [address] [facility] [address] [place] [address] Referral ID Status Reason Start Date Expiration Date Visits Requested Visits Authorized [id number] Pending Review Auto-Generat ed Referral 09/04/2021 10/04/2022 1 1 [facility] for referral (narrative)* Diagnostic Procedure Only (Urgent) - Closed Specialty Diagnoses / Procedures [facility] Diagnoses Acute pain of left knee Procedures XR KNEE GENERAL 4V AP BOTH/PA BOTH/LAT/MERC LEFT RADIOLOGIC EXAM KNEE COMPLETE 4/MORE VIEWS Deepti Hernandez, RETAIL BRANCH MANAGER.AUTOMATION MACHINE BUILDER [address] [id number] [place] [address] Referral ID Status Reason Start Date Expiration Date V isits Requested Visits Authorized [id number] Closed Auto-Generate d Referral 01/16/2023 02/15/2024 1 1 [facility] for referral (narrative)* Diagnostic Procedure Only (Urgent) - Closed Specialty Diagnoses / Procedures [facility] To Contact [facility] Diagnoses Pain of right thumb Procedures XR DIGIT GENERAL 3V FRONTAL/LAT/OBL RIGHT X-RAY EXAM OF FINGER(S) Danielle Car APRN.AUTOMATION MACHINE BUILDER [address] [place] [address] [place] [address] Referral ID Status Reason Start Date Expiration Date V isits Requested Visits Authorized [id number] Closed Auto-Generate d Referral 01/29/2021 02/28/2022 1 1 [facility]No reason for referral information [facility]St[facility] Work Phone: Reason for visit Narrative* Diagnostic Procedure Only (Urgent) - Closed Specialty Diagnoses / Procedures Referred By Contac t Referred To Contact XR IMAGING Diagnoses Acute pain of left knee Procedures XR KNEE GENERAL 4V AP BOTH/PA BOTH/LAT/MERC LEFT RADIOLOGIC EXAM KNEE COMPLETE 4/MORE VIEWS Deepti Hernandez, RETAIL BRANCH MANAGER.AUTOMATION MACHINE BUILDER [address] [place] [address] [place] [address] Referral ID Status Reason Start Date Expiration Date V isits Requested Visits Authorized [id number] Closed Auto-Generate d Referral 01/16/2023 02/15/2024 1 1 [facility] N[facility]* Diagnostic Procedure Only (Urgent) - Closed Specialty Diagnoses / Procedures Referred By Contac t Referred To Contact XR IMAGING Diagnoses Pain of right thumb Procedures XR DIGIT GENERAL 3V FRONTAL/LAT/OBL RIGHT X-RAY EXAM OF FINGER(S) Danielle Car, RETAIL BRANCH MANAGER.AUTOMATION MACHINE BUILDER [address] [place] [address] [place] [address] Referral ID Status Reason Start Date Expiration Date V isits Requested Visits Authorized [id number] Closed Auto-Generate d Referral 01/29/2021 02/28/2022 1 1 [facility] Advance Directives No Advanced Directives Records FoundDocuments on File Type Date Recorded 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 No July 16, 2024 3:02am Summary Purpose Family History Relationship Condition Age at Onset Recorded Date/T ash mother Diabetes mellitus Unknown father Cardiac disease Unknown Myocardial infarction 44 No Family History Records Found Chief Complaint and Reason for Visit Chief Complaint Admit Date MED FOLLOW UP April 26, 2024 7:56am LOW BACK PAIN, RX HERE June 03, 2024 2:00pm palpitations July 16, 2024 3:01a m Reason for Visit Admit Date Dizziness April 26, 2024 7:56am Meningioma April 26, 2024 7:56am Moderate major depression April 26, 2024 7:56am Smokes cigarettes April 26, 2024 7:56am Palpitations April 26, 2024 7:56am Influenza vaccination declined April 26, 2024 7:56am Perineural cyst April 26, 2024 7:56am Elevated TSH April 26, 2024 7:56am Chronic low back pain with bilateral sci atica April 26, 2024 7:56am Gastroesophageal reflux disease April 26, 2024 7:56am Chief Complaint Admit Date palpitations July 16, 2024 3:01a m LOWER BACK PAIN October 04, 2024 8:53 am Reason for Visit Admit Date Dizziness October 04, 2024 8:53 am Meningioma October 04, 2024 8:53 am Moderate major depression October 04 8:53am Smokes cigarettes October 04, 2024 8:53 am Palpitations October 04, 2024 8:53 am Perineural cyst October 04, 2024 8:53 am Elevated TSH October 04, 2024 8:53 am Chronic low back pain with bilateral sci atica October 04, 2024 8:53am Gastroesophageal reflux disease September 8:53am Additional Source Comments Source Comments (unrecognize d section and content) In the event this informatio n is protected by the Federal Confidentiality of Alcohol and Drug Abuse Patient Records regulations: The Federal rules restrict any use of the information to criminally investigate or prosecute any alcohol or drug abuse patient.[facility] the event this information is protected by the Federal Confidentiality of Alcohol and Drug Abuse Patient Records regulations: The Federal rules restrict any use of the information to criminally investigate or prosecute any alcohol or drug abuse patient.[facility] Center[facility] the event this information is protected by the Federal Confidentiality of Alcohol and Drug Abuse Patient Records regulations: The Federal rules restrict any use of the information to criminally investigate or prosecute any alcohol or drug abuse patient.[facility] Center[facility] the event this information is protected by the Federal Confidentiality of Alcohol and Drug Abuse Patient Records regulations: The Federal rules restrict any use of the information to criminally investigate or prosecute any alcohol or drug abuse patient.[facility] CenterIn the event this information is protected by the Federal Confidentiality of Alcohol and Drug Abuse Patient Records regulations: The Federal rules restrict any use of the information to criminally investigate or prosecute any alcohol or drug abuse patient.[facility] CenterIn the event this information is protected by the Federal Confidentiality of Alcohol and Drug Abuse Patient Records regulations: The Federal rules restrict any use of the information to criminally investigate or prosecute any alcohol or drug abuse patient.[facility] CenterIn the event this information is protected by the Federal Confidentiality of Alcohol and Drug Abuse Patient Records regulations: The Federal rules restrict any use of the information to criminally investigate or prosecute any alcohol or drug abuse patient.[facility] CenterIn the event this information is protected by the Federal Confidentiality of Alcohol and Drug Abuse Patient Records regulations: The Federal rules restrict any use of the information to criminally investigate or prosecute any alcohol or drug abuse patient.[facility] CenterIn the event this information is protected by the Federal Confidentiality of Alcohol and Drug Abuse Patient Records regulations: The Federal rules restrict any use of the information to criminally investigate or prosecute any alcohol or drug abuse patient.[facility] CenterIn the event this information is protected by the Federal Confidentiality of Alcohol and Drug Abuse Patient Records regulations: The Federal rules restrict any use of the information to criminally investigate or prosecute any alcohol or drug abuse patient.[facility] CenterIn the event this information is protected by the Federal Confidentiality of Alcohol and Drug Abuse Patient Records regulations: The Federal rules restrict any use of the information to criminally investigate or prosecute any alcohol or drug abuse patient.[facility] CenterIn the event this information is protected by the Federal Confidentiality of Alcohol and Drug Abuse Patient Records regulations: The Federal rules restrict any use of the information to criminally investigate or prosecute any alcohol or drug abuse patient.[facility] CenterIn the event this information is protected by the Federal Confidentiality of Alcohol and Drug Abuse Patient Records regulations: The Federal rules restrict any use of the information to criminally investigate or prosecute any alcohol or drug abuse patient.[facility] Care Teams (unrecognized sec tion and content) Lumber Piler Relationship Specialty Start Date End Date Alexx Segura MD [address], [place] [id number] PCP - General Family Practice 12/30/18 Lumber Piler Relationship Specialty Start Date End Date Alexx Segura MD [address], [place] [id number] PCP - General Family Medicine 12/30/18 Lumber Piler Relationship Specialty Start Date End Date Alexx Segura MD [address], [place] [address] PCP - General Family Medicine 12/30/18 Lumber Piler Relationship Specialty Start Date End Date Pcp, No, RETAIL BRANCH MANAGER PCP - General Adult Health 05/13/23 12/07/23 Lumber Piler Relationship Specialty Start Date End Date Pcp, No, RETAIL BRANCH MANAGER PCP - General Adult Health 05/13/23 12/07/23 Lumber Piler Relationship Specialty Start Date End Date Alexx Segura MD [address], [place] [id number] PCP - General Family Medicine 12/30/18 05/12/23 Team Status: Active Member Role Status Dates Dr. Savita Ahn MD Primary Care Provider Active Team Status: Inactive Member Role Status Dates Dr. Savita Ahn MD Primary Care Provider Active Start: April 25, 2024 End: April 25, 2024 Dr. Savita Ahn MD Attending Provider Active Start: April 25, 2024 End: April 25, 2024 Dr. Savita Ahn MD Referring Provider Active Start: April 25, 2024 End: April 25, 2024 Team Status: Inactive Member Role Status Dates Dr. Savita Ahn MD Primary Care Provider Active Start: April 26, 2024 End: April 26, 2024 Dr. Savita Ahn MD Attending Provider Active Start: April 26, 2024 End: April 26, 2024 Dr. Savita Ahn MD Referring Provider Active Start: April 26, 2024 End: April 26, 2024 Team Status: Active Member Role Status Dates Dr. Savita Ahn MD Primary Care Provider Active Start: June 03, 2024 Dr. Savita Ahn MD Attending Provider Active Start: June 03, 2024 Dr. Savita Ahn MD Referring Provider Active Start: June 03, 2024 Team Status: Inactive Member Role Status Dates Dr. Savita Ahn MD Primary Care Provider Active Start: July 16, 2024 End: July 16, 2024 Adal Dempsey MD Emergency Provider Active Star t: July 16, 2024 End: July 16, 2024 Team Status: Inactive Member Role Status Dates Dr. Savita Ahn MD Primary Care Provider Active Start: June 03, 2024 End: June 03, 2024 Dr. Savita Ahn MD Attending Provider Active Start: June 03, 2024 End: June 03, 2024 Dr. Savita Ahn MD Referring Provider Active Start: June 03, 2024 End: June 03, 2024 Team Status: Inactive Member Role Status Dates Dr. Savita Ahn MD Primary Care Provider Active Start: July 16, 2024 End: July 16, 2024 Adal Dempsey MD Attending Provider Active Star t: July 16, 2024 End: July 16, 2024 Adal Dempsey MD Emergency Provider Active Star t: July 16, 2024 End: July 16, 2024 Lumber Piler Relationship Specialty Start Date End Date Kary Galindo MD [address] [place] [phone] Referring Neurology 06/09/24 Lumber Piler Relationship Specialty Start Date End Date Kary Galindo MD [address] [place] [phone] Referring Neurology 06/09/24 Lumber Piler Relationship Specialty Start Date End Date Kary Galindo MD [address] [place] [phone] Referring Neurology 06/09/24 Team Status: Active Member Role/Relationship Status Dates Dr. Savita Ahn MD Primary Care Provider Active Team Status: Inactive Member Role/Relationship Status Dates Dr. Savita Ahn MD Primary Care Provider Active Start: July 16, 2024 End: July 16, 2024 Adal Dempsey MD Attending Provider Active Star t: July 16, 2024 End: July 16, 2024 Adal Dempsey MD Emergency Provider Active Star t: July 16, 2024 End: July 16, 2024 Team Status: Inactive Member Role/Relationship Status Dates Dr. Savita Ahn MD Primary Care Provider Active Start: October 04, 2024 End: October 04, 2024 Dr. Savita Ahn MD Attending Provider Active Start: October 04, 2024 End: October 04, 2024 Dr. Savita Ahn MD Referring Provider Active Start: October 04, 2024 End: October 04, 2024 Reason for Visit (unrecogniz ed section and content) Reason Comments Ear Pain Right ear pain x 2 d ays Reason Comments Head Congestion Bilateral ears clogg ed, sinus VILLEGAS and pressure, cough, ST x1 week Reason Comments Referral faxed to neurology Reason Comments Medication Problem Reason Comments [facility] - Paresthesia Reason Comments Results INFORMATION SOURCE (unrecogn ized section and content) DATE CREATED AUTHOR 06/27/2024 [facility] DATE CREATED AUTHOR AUTHOR'S ORGANIZ ATION 08/18/2024 [facility] DATE CREATED AUTHOR AUTHOR'S ORGANIZ ATION 08/30/2024 [facility] DATE CREATED AUTHOR AUTHOR'S ORGANIZ ATION 10/05/2024 [facility] Goals (unrecognized section and content) Goals may be documented in a n alternate section FOR RECORDS PERTAINING TO PATIENTS WHO ARE [...] BE BASED ON THE PRIMARY CLINICAL RECORDS. [employer] provides no warranty or guarantee of the accuracy or completeness of information in this document.
--- OUTSIDE RECORDS SUMMARY | 2024-10-05 20:26 | XMS RPT_ITS | CCD ---
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 Savita Ahn MD Attending Provider Dr. Savita Ahn MD Referring Provider Adal Dempsey MD Emergency Provider Adal Dempsey MD Attending Provider Kary Galindo MD Unavailable ALEXX MACE Referring Unavailab ALEXX Hirsch Attending Unavailab KARY Trevizo Referring Unavailable Dr. Savita Ahn MD Primary Care Provider [phone] Dr. Savita Ahn MD Attending Provider Dr. Savita Ahn MD Referring Provider Savita Ahn Attending Unavailable Jimy, Savita Referring Unavailable Canton, Savita Primary Care Unavailable Jimy, Savita Attending Unavailable Jimy, Savita Primary Care Unavailable Canton, Savita Referring Unavailable Jimy, Savita Primary Care Unavailable Canton, Savita Attending Unavailable Jimy, Savita Attending Unavailable Jimy, Savita Referring Unavailable [place]on, Savita Primary Care Unavailable Mayco Chavez Attending Unavailable Canton, Savita Referring Unavailable Jimy, Savita Primary Care Unavailable Humberto Lira Attending Unavailable Canton, Savita Referring Unavailable Jimy, Savita Primary Care Unavailable Sangeetha Garibay Attending Unavailable Jimy, Savita Referring Unavailable Canton, Savita Primary Care Unavailable Canton, Savita Attending Unavailable Canton, Savita Primary Care Unavailable Jimy, Savita Referring Unavailable Jimy, Savita Attending Unavailable Jimy, Savita Referring Unavailable Canton, Savita Primary Care Unavailable Jimy, Savita Attending Unavailable Canton, Savita Referring Unavailable Canton, Savita Primary Care Unavailable Andrea Mcmullen Attending Unavailable [place]on, Savita Primary Care Unavailable Nelson Ba Attending Unavailable [place], Savita Primary Care Unavailable Thanh Mcdonald Attending [...] Comment on above: Take 1 tablet by [facility] twice daily for 7 days. amoxicillin 875 [...] Comment on above: Take 1 tablet by [facility] twice daily for 10 days. Marisabel.Stocking,Thigh, Reg,Med [...] Reference Range Facility Internal Medicine Office Vis [facility] [place] 10-03-2024 Internal Medicine Office Visit [facility] [address] [place] [address] OFFICE VISIT Date of Service: 10/04/24 MR#: [id number] Acct: [id number] Name: FAUSTINA GLASGOW Rep #: [id number] : 1975 Provider: Dr. 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 Normal [facility] Ludivina 08-26-2024 [facility] Telephone (NEURAV) FAUSTINA GLASGOW ([id number]) 1975 F Date Time Provider Department 08/26/24 ALEXX MACE During your visit today, we recorded the following information about you: Isidra Johnson 08/26/2024 12:33 PM Signed Patient doesn't have MyChart and is requesting a call back with there most recent lab results. Patient has been identified by name and birthdate. Duration of symptoms: N/A Person calling: self Call patient at: at home [phone] (home) [phone] (work) [phone] (cell) Was an appointment scheduled: No Closing statement: Results or non-symptom based questions: Thank you for calling [facility], your call will be returned within the [...] Encounter Status:Closed by HANNAH PATTERSON on 08/26/24 [facility] CNPNon 08-24-2024 CNPN Telephone (NEURAV) FAUSTINA GLASGOW ([id number]) 1975 F Date Time Provider Department 08/24/24 ALEXX MACE During your visit today, we recorded the following information about you: Hannah Patterson LPN 08/24/2024 7:29 PM Signed 08/24/2024 Records received from [facility] for review by he has reviews and [...] Encounter Status:Closed by HANNAH PATTERSON on 08/24/24 [facility] DARYL BY CHRISTY WITH REFLEXOrdere d By: Jennifer Brice on 08-16-2024 Interpretation and review of laboratory results Normal [facility] Nuclear Ab Ql (S) Negative Negative [facility] Comment on above: Anti-nuclear antibod y test is used as an aid in diagnosis of systemic autoimmune diseases. Where positive and clinically warranted, follow-up using disease-specific testing is recommended. Low positive titers are not uncommon with advanced age, certain chronic infections, and malignancies among others. Test methodology: Indirect fluorescence immunoassay (IFA) using HEp-2 cells. [facility] IMMUNOFIXATION SCREEN, SERUM Ordered By: Natalio Ohara on 08-16-2024 MPA Result No M protein is identified. No M protein is identified. [facility] Staff Review (MPA) Reviewed by Roshan Mata MD, Ph.D ([id number]) [facility] Ludivina 08-15-2024 CNPN Telephone (NEURAV) CAROLINAFAUSTINA Figueroa ([id number]) 1975 F Date Time Provider Department 08/15/24 [...] sent to pharmacy. Please send to [facility] in [place]. Patient has been identified by name and birthdate. Duration of symptoms: N/A Person calling: self Call patient at: on cell [phone] (home) [phone] (work) [phone] (cell) Was an appointment scheduled: No Closing statement: Results or non-symptom based questions: Thank you for calling [facility], your call will be returned within the next business day. Alexx More DO 08/15/2024 9:23 PM Signed Prescription has been sent as requested. Note is still in progress. Hannah Patterson LPN 08/17/2024 9:51 AM Signed 08/17/2024 Pharmacy called and this nurse verified Rx had been received and awaiting picker packer from patient. Hannah Patterson LPN Allergies [...] Status:Closed by HANNAH PATTERSON on 08/16/24 Normal [facility] DARYL BY IFA WITH REFLEXon Nuclear Ab Ql (S) Negative Normal Negative [facility] Comment on above: Order Comment: Speci men Type: BLOOD SPECIMEN Ordering Facility: [facility] Address: [facility] [place] [address] Result Comment: Anti -nuclear antibody test is used as an aid in diagnosis of systemic autoimmune diseases. Where positive and clinically warranted, follow-up using disease-specific testing is recommended. Low positive titers are not uncommon with advanced age, certain chronic infections, and malignancies among others. Test methodology: Indirect fluorescence immunoassay (IFA) using HEp-2 cells. Performed By: #### A YANI #### [facility] CLIA [id number] [address] [place] [address] [place] CNOVon 08-12-2024 CNOV Office Visit (NEURAV ) FAUSTINA GLASGOW ([id number]) 1975 F Date Time Provider Department 08/12/24 1:00 PM ALEXX MACE NEURAV During your visit today, we recorded the following information about you: Pulse Blood pressure 80/minute 132/54 Alexx Mace, DO 08/21/2024 5:27 PM Signed [facility] [place] New Patient Consultation August 12, 2024 ++ [...] of Sys (more content not included)... Normal [facility] IMMUNOFIXATION SCREEN, SERUM on 08-12-2024 MPA RESULT No M protein is identified. Normal No M protein is identified. [facility] Comment on above: Order Comment: Speci jose luis Type: BLOOD SPECIMEN Ordering Facility: [facility] Address: [address] [place] [address] Performed By: #### I FESC #### [facility] CLIA [id number] [address] [place] [address] [place] STAFF REVIEW (MPA) Reviewed by Roshan Mata MD, Ph.D ([id number]) Normal [facility] Comment on above: Order Comment: Cocoi men Type: BLOOD SPECIMEN Ordering Facility: [facility] Address: [address] [place] [address] Performed By: #### I FESC #### [facility] CLIA [id number] [address] [place], [place] [id number] [place] 12 Lead EKGon 07-16-2024 12 Lead EKG [facility] [address] [place] [address] 12 Lead EKG 07/16/24 0311 MR#: [id number] Acct: [id number] Name: FAUSTINA GLASGOW Rep #: [id number] : 1975 49 From: Natalio Brice MD [...] rhythm Normal ECG Confirmed by Natalio Brice ([id number]), story editor BIGG MORILLO ([id number]) on 07/18/2024 9:02:33 AM Referred By: AR Confirmed By: Natalio Brice 07/18/24901 Date Natalio Brice MD CC: Dr. Adal Dempsey MD; Dr. Savita Ahn MD Signed Normal [facility] Absolute lymphocyte countOrd ered By: Adal Dempsey on 07-16-2024 Lymphocytes Auto (Unsp spec) [#/Vol] 3.70 10*3/uL 0.83-4.51 [facility] Absolute neutrophil countOrd ered By: Adal Dempsey on 07-16-2024 Neutrophils (Bld) [#/Vol] 5.5 10*3/uL 2.0-7.7 [facility] Anion gap in Serum or Plasma Ordered By: Adal Dempsey on 07-16-2024 Anion gap [Moles/Vol] 13 mmol/L 07-21 [facility] Automated lymphocyte count a s percentage of total leukocytesOrdered By: Adal Dempsey on 07-16-2024 Lymphocytes/100 WBC Auto (Unsp spec) 37.9 % - [facility] BUN/creatinine ratioOrdered By: Adal Dempsey on 07-16-2024 Urea nitrogen/Creatinine [Mass ratio] 9.8 mg/mg Low 12-26 [facility] Basic Metabolic Profile (BMP )on 07-16-2024 BUN/CRE 9.8 RATIO Low 12-26 [facility] Comment on above: Performed By: #### L 100.0100, L500.2500, L501.4021 ####[facility] [address] [place], [address] Calcium [Mass/Vol] 9.2 mg/dL Normal 7.6-11.0 [facility] Comment on above: Performed By: #### L 100.0100, L500.2500, L501.4021 ####[facility] [address] [place], [address] Chloride [Moles/Vol] 103 mmol/L Normal 98-108 [facility] Comment on above: Performed By: #### L 100.0100, L500.2500, L501.4021 ####[facility] [address] [place], [address] CO2 [Moles/Vol] 21.9 mmol/L Normal 21.0-32.0 [facility] Comment on above: Performed By: #### L 100.0100, L500.2500, L501.4021 ####[facility] [address] [place], [address] Creatinine [Mass/Vol] 0.91 mg/dL Normal 0.70-1.20 [facility] Comment on above: Performed By: #### L 100.0100, L500.2500, L501.4021 ####[facility] [address] [place], [address] ECRCL 82.99 ml/min Normal 50-250 [facility] Comment on above: Performed By: #### L 100.0100, L500.2500, L501.4021 ####[facility] [address] [place], [address] GAP 13 Normal 5-15 [facility] Comment on above: Performed By: #### L 100.0100, L500.2500, L501.4021 ####[facility] [address] [place], [address] GFR/1.73 sq M.predicted among non-blacks MDRD (S/P/Bld) [Vol rate/Area] 77 mL/min/{1.73_m2} Normal >60 [facility] Comment on above: Result Comment: mL/m in/1.73m2 CKD-EPI Creatinine Equation (2020) Performed By: #### L 100.0100, L500.2500, L501.4021 ####[facility] [address] [place], [address] Glucose [Mass/Vol] 203 mg/dL High 70-99 [facility] Comment on above: Performed By: #### L 100.0100, L500.2500, L501.4021 ####[facility] [address] [place], [address] Potassium [Moles/Vol] 4.0 mmol/L Normal 3.3-5.1 [facility] Comment on above: Performed By: #### L 100.0100, L500.2500, L501.4021 ####[facility] [address] [place], [address] Sodium [Moles/Vol] 138 mmol/L Normal 133-145 [facility] Comment on above: Performed By: #### L 100.0100, L500.2500, L501.4021 ####[facility] [address] [place], [address] Urea nitrogen [Mass/Vol] 9 mg/dL Normal 4-19 [facility] Comment on above: Performed By: #### L 100.0100, L500.2500, L501.4021 ####[facility] [address] [place], [address] Basophil percentageOrdered B y: Adal Dempsey on 07-16-2024 Basophils/100 WBC (Bld) 0.4 % 0-1 [facility] CBC W/Diff, Automatedon 05-1 0-2025 Absolute Lymph 3.70 X10 3/uL Normal 0.83-4.51 [facility] Comment on above: Performed By: #### L 100.0100, L500.2500, L501.4021 ####[facility] [address] [place], [address] Absolute Neut 5.5 X10 3/uL Normal 2.0-7.7 [facility] Comment on above: Performed By: #### L 100.0100, L500.2500, L501.4021 ####[facility] [address] [place], [address] Basophils/100 WBC (Bld) 0.4 % Normal 0-1 [facility] Comment on above: Performed By: #### L 100.0100, L500.2500, L501.4021 ####[facility] [address] [place], [address] Eosinophils/100 WBC (Bld) 1.3 % Normal 0-5 [facility] Comment on above: Performed By: #### L 100.0100, L500.2500, L501.4021 ####[facility] [address] [place], [address] Erythrocyte distribution width (RBC) [Ratio] 14.6 % Normal 11.6-14.6 [facility] Comment on above: Performed By: #### L 100.0100, L500.2500, L501.4021 ####[facility] [address] [place], [address] Hematocrit (Bld) [Volume fraction] 46.0 % Normal 37-47 [facility] Comment on above: Performed By: #### L 100.0100, L500.2500, L501.4021 ####[facility] [address] [place], [address] Hemoglobin (Bld) [Mass/Vol] 15.2 g/dL High 12.0-15.0 [facility] Comment on above: Performed By: #### L 100.0100, L500.2500, L501.4021 ####[facility] [address] [place], [address] IG% 0.600 Normal 0.0-0.9 [facility] Comment on above: Result Comment: IG% - Immature Granulocytes (promyelocytes, myelocytes and metamyelocytes) > 1% indicates that a LEFT SHIFT is Present. Performed By: #### L 100.0100, L500.2500, L501.4021 ####[facility] [address] [place], [address] Lymphocytes/100 WBC (Bld) 37.9 % Normal 19-41 [facility] Comment on above: Performed By: #### L 100.0100, L500.2500, L501.4021 ####[facility] [address] [place], [address] MCH (RBC) [Entitic mass] 27.6 pg Normal 27.0-32.0 [facility] Comment on above: Performed By: #### L 100.0100, L500.2500, L501.4021 ####[facility] [address] [place], [address] MCHC (RBC) [Mass/Vol] 33.0 g/dL Normal 32-36 [facility] Comment on above: Performed By: #### L 100.0100, L500.2500, L501.4021 ####[facility] [address] [place], [address] MCV (RBC) [Entitic vol] 83.5 fL Normal 81-99 [facility] Comment on above: Performed By: #### L 100.0100, L500.2500, L501.4021 ####[facility] [address] [place], [address] Monocytes/100 WBC (Bld) 3.6 % Normal 0-10 [facility] Comment on above: Performed By: #### L 100.0100, L500.2500, L501.4021 ####[facility] [address] [place], [address] Neutrophils/100 WBC (Bld) 56.2 % Normal 47-70 [facility] Comment on above: Performed By: #### L 100.0100, L500.2500, L501.4021 ####[facility] [address] [place], [address] Nucleated RBC (Bld) [#/Vol] 0 10*3/uL Normal 0-5 [facility] Comment on above: Performed By: #### L 100.0100, L500.2500, L501.4021 ####[facility] [address] [place], [address] Platelet mean volume (Bld) [Entitic vol] 10.8 fL Normal 6.2-12.0 [facility] Comment on above: Performed By: #### L 100.0100, L500.2500, L501.4021 ####[facility] [address] [place], [address] Platelets (Bld) [#/Vol] 258 10*3/uL Normal 150-450 [facility] Comment on above: Performed By: #### L 100.0100, L500.2500, L501.4021 ####[facility] [address] [place], [address] RBC (Bld) [#/Vol] 5.51 10*6/uL High 4.2-5.4 [facility] Comment on above: Performed By: #### L 100.0100, L500.2500, L501.4021 ####[facility] [address] [place], [address] RDW SD 44.2 fl High 35.1-43.9 [facility] Comment on above: Performed By: #### L 100.0100, L500.2500, L501.4021 ####[facility] [address] [place], [address] WBC (Bld) [#/Vol] 9.8 10*3/uL Normal 4.4-11.0 [facility] Comment on above: Performed By: #### L 100.0100, L500.2500, L501.4021 ####[facility] [address] [place], [address] Carbon dioxide, total [Moles /volume] in Central venous bloodOrdered By: Adal Dempsey on 07-16-2024 CO2 [Moles/Vol] 21.9 mmol/L 21.0-32.0 [facility] Chest 1 View (Portable)on Chest 1 View (Portable) [facility] Imaging Services [address] [place] [address] Chest 1 View (Portable) MR#: [id number] Acct: [id number] Name: FAUSTINA GLASGOW Rep #: [id number] : 1975 F 49 From: Nick Obrien MD PCP: Dr. Savita Ahn MD Status: PRE ER Study: Chest 1 View (Portable) Date of Exam: 07/16/24 Exam# [id number] Ordering Dr: Adal Dempsey MD PROCEDURE: CHEST 1 VIEW (PORTABLE) 07/16/2024 REASON FOR EXAM: CHEST PAIN TECHNIQUE: Frontal view of the chest. COMPARISON: 01/01/2024 FINDINGS: The lungs appear clear. Pulmonary vascularity appears within limits. No pleural effusion. Cardiac and mediastinal contours appear within limits. The visualized osseous structures appear within limits. RAD/Chest 1 View (Portable) IMPRESSION: No evidence of acute disease. Reading Location: [id number] CC: Dr. Adal Dempsey MD; Dr. Savita Ahn MD Cover Inspector: Signed Normal [facility] Chloride assayOrdered By: Kee Dempsey on 07-16-2024 Chloride [Moles/Vol] 103 mmol/L 98-108 [facility] Emergency Department Summary on 07-16-2024 Emergency Department Summary [facility] Medical Records Department [address] [place] [address] Emergency Department Summary 07/16/24 MR#: [id number] Acct: [id number] Name: FAUSTINA GLASGOW Rep #: [id number] : 1975 49 From: Adal Dempsey MD [...] last few days. She is a smoker. [facility] Medical History Seizure disorder Meningioma Meningioma Vitamin [...] pneumonia versu (more content not included)... Normal [facility] Eosinophil percentageOrdered By: Adal Dempsey on 07-16-2024 Eosinophils/100 WBC (Bld) 1.3 % 0-5 [facility] Erythrocyte distribution wid th ratioOrdered By: Adal Dempsey on 07-16-2024 Erythrocyte distribution width (RBC) [Ratio] 14.6 % 11.6-14.6 [facility] Erythrocyte distribution wid th standard deviationOrdered By: Adal Dempsey on 07-16-2024 Erythrocyte distribution width (RBC) [Ratio] 44.2 fl High 35.1-43.9 [facility] Glomerular filtration rate ( GFR) estimation/1.73 sq m using serum, plasma, or whole bOrdered By: Adal Dempsey on 07-16-2024 GFR/1.73 sq M.predicted among non-blacks MDRD (S/P/Bld) [Vol rate/Area] 77 mL/min/{1.73_m2} >60 [facility] Comment on above: mL/min/1.73m2 CKD-EP I Creatinine Equation (2020) Hematocrit Auto (Bld) [Volum e fraction]Ordered By: Adal Dempsey on 07-16-2024 Hematocrit (Bld) [Volume fraction] 46.0 % 37-47 [facility] Hemoglobin measurementOrdere d By: Adal Dempsey on 07-16-2024 Hemoglobin (Bld) [Mass/Vol] 15.2 g/dL High 12.0-15.0 [facility] Immature granulocytes/100 WB C Auto (Bld)Ordered By: Adal Dempsey on 07-16-2024 Immature granulocytes/100 WBC (Bld) 0.600 % 0.0-0.9 [facility] Comment on above: IG% - Immature Granu locytes (promyelocytes, myelocytes and metamyelocytes) > 1% indicates that a LEFT SHIFT is Present. L499.0042on 07-16-2024 Trop T High Sen < 6 Normal <=14 [facility] Comment on above: Performed By: #### L 499.0042 ####[facility] [address] [place], [address] L501.4021on 07-16-2024 Trop T High Sen 6 ng/L Normal <=14 [facility] Comment on above: Performed By: #### L 100.0100, L500.2500, L501.4021 ####[facility] [address] [facility] [place], [address] MCV (mean corpuscular volume ) determinationOrdered By: Adal Dempsey on 07-16-2024 MCV (RBC) [Entitic vol] 83.5 fL 81-99 [facility] Mean corpuscular hemoglobin (MCH) determinationOrdered By: Adal Dempsey on 07-16-2024 MCH (RBC) [Entitic mass] 27.6 pg 27.0-32.0 [facility] Mean corpuscular hemoglobin concentration (MCHC) determinationOrdered By: Adal Dempsey on 07-16-2024 MCHC (RBC) [Mass/Vol] 33.0 g/dL 32-36 [facility] Mean platelet volume determi nationOrdered By: Adal Dempsey on 07-16-2024 Platelet mean volume (Bld) [Entitic vol] 10.8 fL 6.2-12.0 [facility] Monocyte percentageOrdered B y: Adal Dempsey on 07-16-2024 Monocytes/100 WBC (Bld) 3.6 % 0-10 [facility] Neutrophil percentageOrdered By: Adal Dempsey on 07-16-2024 Neutrophils/100 WBC (Bld) 56.2 % 47-70 [facility] Nucleated red blood cell per centageOrdered By: Adal Dempsey on 05-10-2025 Nucleated RBC/100 WBC (Bld) [Ratio] 0 % 0-5 [facility] Platelet countOrdered By: Kee Depmsey on 07-16-2024 Platelets (Bld) [#/Vol] 258 10*3/uL 150-450 [facility] Potassium measurement (mass/ volume)Ordered By: Adal Dempsey on 07-16-2024 Potassium (Unsp spec) [Mass/Vol] 4.0 mmol/L 3.3-5.1 [facility] RBC Auto (Bld) [#/Vol]Ordere d By: Adal Dempsey on 07-16-2024 RBC (Bld) [#/Vol] 5.51 10*6/uL High 4.2-5.4 [facility] Serum creatinine measurement (mass/volume)Ordered By: Adal Dempsey on 07-16-2024 Creatinine [Mass/Vol] 0.91 mg/dL 0.70-1.20 [facility] Serum glucose measurement (m ass/volume)Ordered By: Adal Dempsey on 07-16-2024 Glucose [Mass/Vol] 203 mg/dL High 70-99 [facility] Serum or plasma calcium george urement (mass/volume)Ordered By: Adal Dempsey on 07-16-2024 Calcium [Mass/Vol] 9.2 mg/dL 7.6-11.0 [facility] Serum or plasma urea nitroge n measurement (mass/volume)Ordered By: Adal Dempsey on 07-16-2024 Urea nitrogen [Mass/Vol] 9 mg/dL 4-19 [facility] Sodium levelOrdered By: Adal Dempsey on 07-16-2024 Sodium [Moles/Vol] 138 mmol/L 133-145 [facility] Troponin T.cardiac [Mass/vol ume] in Serum or Plasma by High sensitivity methodOrdered By: Adal Dempsey on 07-16-2024 Troponin T.cardiac High sensitivity method [Mass/Vol] < 6 ng/L <14 [facility] Troponin T.cardiac High sensitivity method [Mass/Vol] 6 ng/L <14 [facility] White blood cell (WBC) count Ordered By: Adal Dempsey on 07-16-2024 WBC (Bld) [#/Vol] 9.8 10*3/uL 4.4-11.0 [facility] PT D/C Summary (1)on 025 PT D/C Summary (1) [facility] Physical Therapy [facility] [address] [place] [address] / REHABILITATION SERVICES DISCHARGE SUMMARY MR#: [id number] Acct: [id number] Name: FAUSTINA GLASGOW Rep #: [id number] : 1975 49 From: Fredo Sepulveda DPT, OCS, CSCS Referring Dr.: Dr. Savita Ahn MD Status: R EG RCR Insurance: [facility] [employer] Discharge Summary D/C summary: [...] leg pain worse. Walking to back of [facility] is a problem. HEP going well. Sleep [...] please feel free to call me at [phone]. Thank you for the referral of this patient. Sincerely, Fredo Sepulveda, DPT, OCS, CSCS Balance/Gait/Functiona l tests Balance/Special Test Scores Oswestry Low Back Score: 17 Improvement % Improvement: 3 07/14/24 1604 CC: Dr. Savita Ahn MD EBG Signed Normal [facility] 06-25-2024 AGNA-1 Negative Normal Negative [facility] Comment on above: Result Comment: This test was developed and its performance characteristics determined by [facility]. It has not been cleared or approved by the Food and Drug Administration. Performed By: #### M DW, GFR, ANEU, TROPHS, CBC, BMP, ADIFF #### [place] [address] [place], [place] [address] Amphiphysin Ab Negative Normal Negative [facility] Comment on above: Result Comment: This test was developed and its performance characteristics determined by [facility]. It has not been cleared or approved by the Food and Drug Administration. Performed By: #### M DW, GFR, ANEU, TROPHS, CBC, BMP, ADIFF #### [facility] [address] [place], [place] [address] Antineuronal nuclear Ab Type 3 Negative Normal Negative [facility] Comment on above: Result Comment: This test was developed and its performance characteristics determined by [facility]. It has not been cleared or approved by the Food and Drug Administration. Performed By: #### M DW, GFR, ANEU, TROPHS, CBC, BMP, ADIFF #### [place] [address] CASPR2 Ab IFA Negative Normal Negative [facility] Comment on above: Result Comment: This test was developed and its performance characteristics determined by [facility]. It has not been cleared or approved by the Food and Drug Administration. Performed By: #### M DW, GFR, ANEU, TROPHS, CBC, BMP, ADIFF #### [place] [address] CRMP-5 IgG Negative Normal Negative [facility] Comment on above: Result Comment: This test was developed and its performance characteristics determined by [facility]. It has not been cleared or approved by the Food and Drug Administration. Performed By: #### M DW, GFR, ANEU, TROPHS, CBC, BMP, ADIFF #### [place] [address] Hu Ab IFA Negative Normal Negative [facility] Comment on above: Result Comment: This test was developed and its performance characteristics determined by [facility]. It has not been cleared or approved by the Food and Drug Administration. Performed By: #### M DW, GFR, ANEU, TROPHS, CBC, BMP, ADIFF #### [place] [address] Interp Paraneo Negative Normal Negative [facility] Comment on above: Result Comment: A ne gative paraneoplastic autoantibody result does not rule out all clinically relevant antibodies. If indicated, a phenotype-specific profile (For example, Encephalopathy, dementia, myelopathy, or axonal neuropathy) should be considered. Performed By: #### M DW, GFR, ANEU, TROPHS, CBC, BMP, ADIFF #### [place] [address] LGI1 Ab CBA IFA Negative Normal Negative [facility] Comment on above: Result Comment: This test was developed and its performance characteristics determined by [facility]. It has not been cleared or approved by the Food and Drug Administration. Performed At: [address] [id number] Richar Leyva MD Ph:[phone] Performed By: #### M DW, GFR, ANEU, TROPHS, CBC, BMP, ADIFF #### [place] [address] Purkinje Cell Cyto Ab Type 2 Negative Normal Negative [facility] Comment on above: Result Comment: This test was developed and its performance characteristics determined by [facility]. It has not been cleared or approved by the Food and Drug Administration. Performed By: #### M DW, GFR, ANEU, TROPHS, CBC, BMP, ADIFF #### [place] [address] Purkinje Cell Cyto Ab Type Tr Negative Normal Negative [facility] Comment on above: Result Comment: This test was developed and its performance characteristics determined by [facility]. It has not been cleared or approved by the Food and Drug Administration. Performed By: #### M DW, GFR, ANEU, TROPHS, CBC, BMP, ADIFF #### [place] [address] Ri Ab IFA Negative Normal Negative [facility] Comment on above: Result Comment: This test was developed and its performance characteristics determined by [facility]. It has not been cleared or approved by the Food and Drug Administration. Performed By: #### M DW, GFR, ANEU, TROPHS, CBC, BMP, ADIFF #### [place] [address] VGCC Ab <1.0 Normal 0.0-30.0 [facility] Comment on above: Performed By: #### M DW, GFR, ANEU, TROPHS, CBC, BMP, ADIFF #### [place] [address] Yo Ab IFA Negative Normal Negative [facility] Comment on above: Result Comment: This test was developed and its performance characteristics determined by [facility]. It has not been cleared or approved by the Food and Drug Administration. Performed By: #### M DW, GFR, ANEU, TROPHS, CBC, BMP, ADIFF #### [place] [address] ANCAon 06-13-2024 C-ANCA 2.1 Normal 0.0-20.0 [facility] Comment on above: Result Comment: NEW REFERENCE RANGES FOR ANCA BY EIA: NEGATIVE <= 20 UNITS WEAK POSITIVE 21 - 30 UNITS MOD. TO STRONG POSITIVE > 30 UNITS A positive result indicates the presence of MA-3 antibodies and suggests the possibility of certain autoimmune vasculitides such as Diana???s granulomatosis. A negative result indicates no MA-3 antibody or levels below the negative cut-off of the assay. These results were obtained with the [employer] QUANTA Lite MA-3 IgG JEFF. MA-3 values obtained with different manufacturers??? assay methods may not be used interchangeably. The magnitude of the reported IgG level cannot be correlated to an endpoint titer. Results of this assay should be used in conjunction with clinical findings. Performed By: #### F OL, HCV1, HBSAG, RF, ANCA, B12 ####[place] [address]#### 425919, 595366, ANAIFS, 489790, 050301, 874550 ####[place] [address] [place] [address] Cytoplasmic Neutro. Ab. See Below Normal [facility] Comment on above: Performed By: #### F OL, HCV1, HBSAG, RF, ANCA, B12 ####[place] [address]#### 757845, 303672, ANAIFS, 154533, 213704, 138853 ####[place] [address] [place], [place] [address] P-ANCA 1.0 Normal 0.0-20.0 [facility] Comment on above: Result Comment: REFE [...] assay. These results were obtained with the [employer] QUANTA Lite MPO IgG JEFF. MPO values obtained with different manufacturers??? assay methods may not be used interchangeably. The magnitude of the reported IgG level cannot be correlated to an endpoint titer. Results of this assay should be used in conjunction with clinical findings. Performed By: #### F OL, HCV1, HBSAG, RF, ANCA, B12 ####[place] [address]#### 476630, 583612, ANAIFS, 590940, 487048, 672374 ####[address] [place], [place] [address] CUSon 06-11-2024 Copper Lvl 79 UG/DL Low 80-158 [facility] Comment on above: Result Comment: This test was developed and its performance characteristics determined by [employer]. It has not been cleared or approved by the Food and Drug Administration. Detection Limit = 5 Performed At: [address] [id number] Richar Leyva MD Ph:[phone] Performed By: #### F OL, HCV1, HBSAG, RF, ANCA, B12 ####[place] [address]#### 665098, 752849, ANAIFS, 021558, 670510, 483941 ####[facility] [place], [place] [address] LNLO9cq 06-10-2024 Vitamin B6 Lvl 4.5 UG/L Normal 3.4-65.2 [facility] Comment on above: Result Comment: This test was developed and its performance characteristics determined by [employer]. It has not been cleared or approved by the Food and Drug Administration. Deficiency: <3.4 Marginal: 3.4 - 5.1 Adequate: >5.1 Performed At: [address] [id number] Richar Leyva MD Ph:[phone] Performed By: #### F OL, HCV1, HBSAG, RF, ANCA, B12 ####[place] [address]#### 252567, 071035, ANAIFS, 616873, 598129, 338176 ####[place] [address] [place] [id number] ANAIFSon 06-09-2024 Antinuclear Ab Pattern Cytoplasmic fibri llar filamentous Normal [facility] Comment on above: Result Comment: Perf ormed By: [facility] [employer] [address] [place] [address] Gutter Hanger: Dave Diaz III, M.D. CLIA#: [id number] Performed By: #### F OL, HCV1, HBSAG, RF, ANCA, B12 ####[place] [address]#### 010746, 498352, ANAIFS, 668048, 165960, 034194 ####[place] [address] [place] [address] Antinuclear Ab Screen Positive Abnormal Negative [facility] Comment on above: Result Comment: Anti -nuclear antibody test is used as an aid in diagnosis of systemic autoimmune diseases. Where positive and clinically warranted, follow-up using disease-specific testing is recommended. Low positive titers are not uncommon with advanced age, certain chronic infections, and malignancies among others. Test methodology: Indirect fluorescence immunoassay (IFA) using HEp-2 cells. Performed By: [facility] [employer] [address] [place] [address] Gutter Hanger: Dave Diaz III, M.D. CLIA#: [id number] Performed By: #### F OL, HCV1, HBSAG, RF, ANCA, B12 ####[place] [address]#### 809489, 555129, ANAIFS, 104146, 678945, 795325 ####[place] [address] [place] [address] Antinuclear Ab Titer 1:80 Normal [facility] Comment on above: Result Comment: Perf ormed By: [facility] [employer] [address] [place] [address] Gutter Hanger: Dave Diaz III, M.D. CLIA#: [id number] Performed By: #### F OL, HCV1, HBSAG, RF, ANCA, B12 ####[place] [address]#### 114868, 105850, ANAIFS, 731223, 707945, 412855 ####[facility] [place], [place] [address] RFon 06-09-2024 Rheumatoid Factor <6.0 Normal <=5.9 [facility] Comment on above: Result Comment: RF [...] tests. These results were obtained with the [employer] RF IgM JEFF. RF IgM values obtained with different manufacturers' assay methods may not be used interchangeably. The magnitude of the reported IgM levels cannot be correlated to an endpoint titer. Performed By: #### F OL, HCV1, HBSAG, RF, ANCA, B12 ####[place] [address]#### 369838, 558831, ANAIFS, 703283, 709310, 793097 ####[place] [address] [place] [id number] HCVon 06-08-2024 Hep C Ab Non-Reactive Normal Non-Reactive [facility] Comment on above: Performed By: #### F OL, HCV1, HBSAG, RF, ANCA, B12 ####[place] [address]#### 418494, 539781, ANAIFS, 036202, 076739, 481806 ####[place] [address] [place] [address] Hep C Ab Int Normal [facility] Comment on above: Result Comment: Nonr [...] F OL, HCV1, HBSAG, RF, ANCA, B12 ####[place] [address]#### 252512, 262650, ANAIFS, 989425, 538831, 785213 ####[place] [address] [place] [address] LMERLYon 06-08-2024 Lyme Total Antibody AKHIL Negative Normal Negative A [facility] Comment on above: Result Comment: Lyme antibodies not detected. Reflex testing is not indicated. No laboratory evidence of infection with B. burgdorferi (Lyme disease). Negative results may occur in patients recently infected (less than or equal to 14 days) with B. burgdorferi. If recent infection is suspected, repeat testing on a new sample collected in 7 to 14 days is recommended. Performed At: [facility] [id number] Hayde Mace PhD Ph:[phone] Performed By: #### F OL, HCV1, HBSAG, RF, ANCA, B12 ####[place] [address]#### 290166, 017401, ANAIFS, 568878, 592673, 266782 ####[place] [address] [place] [address] SSABon 06-08-2024 Sjogrens SSA Ab <0.2 Normal 0.0-0.9 [facility] Comment on above: Performed By: #### F OL, HCV1, HBSAG, RF, ANCA, B12 ####[place] [address]#### 110139, 345355, ANAIFS, 525310, 795028, 614088 ####[place] [address] [place] [address] Sjogrens SSB Ab <0.2 Normal 0.0-0.9 [facility] Comment on above: Result Comment: Perf ormed At: [address] [id number] Hayde Mace PhD Ph:[phone] Performed By: #### F OL, HCV1, HBSAG, RF, ANCA, B12 ####[place] [address] [place] [address]#### 647366, 080385, ANAIFS, 154846, 544460, 184626 ####[facility] [place], [place] [address] B12on 06-07-2024 Cobalamin (Vitamin B12) [Mass/Vol] 699 pg/mL Normal 211-911 [facility] Comment on above: Performed By: #### F OL, HCV1, HBSAG, RF, ANCA, B12 #### [facility] [address] [place] [address] #### 096721, 940756, ANAIFS, 605567, 750145, 162323 #### [place] [address] [place], [place] [address] FOLon 06-07-2024 Folate 5.21 ng/mL Low 5.38-24.00 [facility] Comment on above: Performed By: #### F OL, HCV1, HBSAG, RF, ANCA, B12 ####[place] [address]#### 360834, 150709, ANAIFS, 403560, 245704, 316219 ####[facility] [place], [place] [address] HBSAGon 06-07-2024 Hep B Surf Ag Non-Reactive Normal Non-Reactive [facility] Comment on above: Performed By: #### F OL, HCV1, HBSAG, RF, ANCA, B12 ####[place] [address]#### 284989, 967077, ANAIFS, 394811, 250664, 665827 ####[facility] [place], [place] [address] Inital Evaluation (1) - PTon 05-02-2024 Inital Evaluation (1) - PT [facility] Physical Therapy [address] [place] [address] / REHABILITATION SERVICES INITIAL EVALUATION MR#: [id number] Acct: [id number] Name: FAUSTINA GLASGOW Rep #: [id number] : 1975 48 From: Fredo Sepulveda DPT, OCS, CSCS Referring Dr.: Dr. Savita Ahn MD Status: R EG RCR Insurance: [facility] [employer] Patient's Visit Information Visit Information Visit Information: FAUSTINA GLASGOW is a 48 year old F referred to Physical Therapy by Dr. Savita Ahn MD with a diagnosis of LBP with B sciatica. Date of Evaluation: 05/02/24 Physical Therapist: Fredo Speulveda, PAUL, OCS, CSCS Visit Plan Frequency: 2x [...] Hobbies: bingo, No regular exercises: [employer] at [employer] until last August. Pain LBP: Pain Intensity [...] to be FAXED BACK to us at [phone] for Medicare purposes. For Medicare only, by signing this I certify the plan of care. Please let me know if there are questions or concerns regarding this plan of care. Physician Signature: Date:__ 05/02/24 1446 CC: Dr. Savita Ahn MD EBG Signed Normal [facility] Internal Medicine Office Vis iton 04-25-2024 Internal Medicine Office Visit [facility] [address] [place] [address] [place] [address] OFFICE VISIT Date of Service: 04/26/24 MR#: [id number] Acct: [id number] Name: FAUSTINA GLASGOW Rep #: [id number] : 1975 Provider: Dr. Savita harris MD Age/Sex: 48/F Location: [facility] [place] Status: Signed Intake Vital Signs 01/01/24 18:47 [...] Reasons: MED FOLLOW UP Chief Complaint: fu Chief Ophthalmic Technician Required: No Accompanied by: Self Is patient [...] it help (more content not included)... Normal [facility] Serum or plasma thyroid stim ulating hormone (TSH) measurement (units/volume)Ordered By: Savita Ahn on 04-25-2024 TSH Qn 4.410 uIU/mL High 0.358-3.740 [facility] Thyroid Stim Hormone (TSH)on 04-25-2024 TSH 4.410 uIU/mL High 0.358-3.740 [facility] Comment on above: Performed By: #### L 501.31755, L506.0400 #### [facility] [address] [place], [place], [id number] MRI BRAIN W/ + W/O CONTRASTo n [...] 02/10/2024 3:37:23 PM Ordering Provider: KARY GALINDO [facility] 12 Lead EKGon 01-01-2024 12 Lead EKG [facility] [address] [place] [address] 12 Lead EKG 01/01/24 1854 MR#: [id number] Acct: [id number] Name: FAUSTINA GLASGOW Rep #: [id number] : 1975 48 From: Roel Greene MD [...] ECG Confirmed by ROEL GREENE MD ([id number]), story editor KELLY VINCENT ([id number]) on 01/04/2024 9:27:27 AM Referred By: Confirmed By:ROEL GREENE MD 01/04/24 0927 Date Roel Greene MD CC: Dr. Savita Ahn MD; Dr. Thanh Mcdonald DO Signed Normal [facility] Basic Metabolic Profile (BMP )on 01-01-2024 BUN/CRE 12.3 RATIO Normal -20 [facility] Comment on above: Order Comment: 1Y Performed By: #### L 501.15229, L506.0400 #### [facility] [address] [place], [address] CA,Total 9.3 mg/dL Normal 8.5-10.1 [facility] Comment on above: Order Comment: 1Y Performed By: #### L 501.37033, L506.0400 #### [facility] [address] [place], [address] Chloride [Moles/Vol] 110 mmol/L High 98-107 [facility] Comment on above: Order Comment: 1Y Performed By: #### L 501.09935, L506.0400 #### [facility] [address] [place], [address] CO2 [Moles/Vol] 27.0 mmol/L Normal 21.0-32.0 [facility] Comment on above: Order Comment: 1Y Performed By: #### L 501.86506, L506.0400 #### [facility] [address] [place], [address] Creatinine [Mass/Vol] 0.89 mg/dL Normal 0.55-1.02 [facility] Comment on above: Order Comment: 1Y Result Comment: The validity of the calculated GFR GFRAA in patients over 70 years has not been determined. Clinical correlation is essential. Performed By: #### L 501.51513, L506.0400 #### [facility] [address] [place], [address] ECRCL 80.99 ml/min Normal [facility] Comment on above: Order Comment: 1Y Performed By: #### L 501.07430, L506.0400 #### [facility] [address] [place], [address] EST GFR - AA 86 mL/min Normal >60 [facility] Comment on above: Order Comment: 1Y Result Comment: Afri can Niuean GFR Calc Performed By: #### L 501.66967, L506.0400 #### [facility] [address] [place], [address] GAP 5 Normal 5-15 [facility] Comment on above: Order Comment: 1Y Performed By: #### L 501.88905, L506.0400 #### [facility] [address] [place], [address] GFR/1.73 sq M.predicted among non-blacks MDRD (S/P/Bld) [Vol rate/Area] 71 mL/min/{1.73_m2} Normal >60 [facility] Comment on above: Order Comment: 1Y Result Comment: Non- GFR Calc Performed By: #### L 501.46321, L506.0400 #### [facility] [address] [place], [address] Glucose [Mass/Vol] 87 mg/dL Normal 74-106 [facility] Comment on above: Order Comment: 1Y Performed By: #### L 501.60000, L506.0400 #### [facility] [address] [place], [address] Potassium [Moles/Vol] 3.8 mmol/L Normal 3.5-5.1 [facility] Comment on above: Order Comment: 1Y Performed By: #### L 501.60805, L506.0400 #### [facility] [address] [place], [address] Sodium [Moles/Vol] 141 mmol/L Normal 136-145 [facility] Comment on above: Order Comment: 1Y Performed By: #### L 501.65189, L506.0400 #### [facility] [address] [place], [address] Urea nitrogen [Mass/Vol] 11 mg/dL Normal 7-18 [facility] Comment on above: Order Comment: 1Y Performed By: #### L 501.42645, L506.0400 #### [facility] [address] [place], [address] CBC W/Diff, Automatedon 10-2 -2023 Absolute Lymph 2.93 X10 3/uL Normal 0.83-4.51 [facility] Comment on above: Performed By: #### L 501.03478, L506.0400 #### [facility] [address] [place], [address] Absolute Neut 3.7 X10 3/uL Normal 2.0-7.7 [facility] Comment on above: Performed By: #### L 501.69132, L506.0400 #### [facility] [address] [place], [address] Basophils/100 WBC (Bld) 0.6 % Normal 0-1 [facility] Comment on above: Performed By: #### L 501.67782, L506.0400 #### [facility] [address] [place], [address] Eosinophils/100 WBC (Bld) 1.6 % Normal 0-5 [facility] Comment on above: Performed By: #### L 501.10684, L506.0400 #### [facility] [address] [place], [address] Erythrocyte distribution width (RBC) [Ratio] 14.3 % Normal 11.6-14.6 [facility] Comment on above: Performed By: #### L 501.63816, L506.0400 #### [facility] [address] [place], [address] Hematocrit (Bld) [Volume fraction] 44.7 % Normal 37-47 [facility] Comment on above: Performed By: #### L 501.63757, L506.0400 #### [facility] [address] [place], [address] Hemoglobin (Bld) [Mass/Vol] 14.7 g/dL Normal 12.0-15.0 [facility] Comment on above: Performed By: #### L 501.58909, L506.0400 #### [facility] [address] [place], [address] IG% 0.300 Normal 0.0-0.9 [facility] Comment on above: Result Comment: IG% - Immature Granulocytes (promyelocytes, myelocytes and metamyelocytes) > 1% indicates that a LEFT SHIFT is Present. Performed By: #### L 501.68550, L506.0400 #### [facility] [address] [place], [address] Lymphocytes/100 WBC (Bld) 41.5 % High 19-41 [facility] Comment on above: Performed By: #### L 501.78788, L506.0400 #### [facility] [address] [place], [address] MCH (RBC) [Entitic mass] 27.7 pg Normal 27.0-32.0 [facility] Comment on above: Performed By: #### L 501.04915, L506.0400 #### [facility] [address] [place], [address] MCHC (RBC) [Mass/Vol] 32.9 g/dL Normal 32-36 [facility] Comment on above: Performed By: #### L 501.30160, L506.0400 #### [facility] [address] [place], [address] MCV (RBC) [Entitic vol] 84.2 fL Normal 81-99 [facility] Comment on above: Performed By: #### L 501.80901, L506.0400 #### [facility] [address] [place], [address] Monocytes/100 WBC (Bld) 4.0 % Normal 0-10 [facility] Comment on above: Performed By: #### L 501.38075, L506.0400 #### [facility] [address] [place], [address] Neutrophils/100 WBC (Bld) 52.0 % Normal 47-70 [facility] Comment on above: Performed By: #### L 501.30599, L506.0400 #### [facility] [address] [place], [address] Nucleated RBC (Bld) [#/Vol] 0 10*3/uL Normal 0-5 [facility] Comment on above: Performed By: #### L 501.98577, L506.0400 #### [facility] [address] [place], [address] Platelet mean volume (Bld) [Entitic vol] 10.4 fL Normal 6.2-12.0 [facility] Comment on above: Performed By: #### L 501.35239, L506.0400 #### [facility] [address] [place], [address] Platelets (Bld) [#/Vol] 233 10*3/uL Normal 150-450 [facility] Comment on above: Performed By: #### L 501.87504, L506.0400 #### [facility] [address] [place], [address] RBC (Bld) [#/Vol] 5.31 10*6/uL Normal 4.2-5.4 [facility] Comment on above: Performed By: #### L 501.88061, L506.0400 #### [facility] [address] [place], [address] RDW SD 43.7 fl Normal 35.1-43.9 [facility] Comment on above: Performed By: #### L 501.65798, L506.0400 #### [facility] Laboratory [address] [place], [address] WBC (Bld) [#/Vol] 7.1 10*3/uL Normal 4.4-11.0 [facility] Comment on above: Performed By: #### L 501.21265, L506.0400 #### [facility] Laboratory [address] [place], [address] Chest 1 View (Portable)on Chest 1 View (Portable) [facility] Imaging Services [address] [place] [address] Chest 1 View (Portable) MR#: [id number] Acct: [id number] Name: FAUSTINA GLASGOW Rep #: [id number] : 1975 F 48 From: Alexx rehman MD PCP: Dr. Savita Ahn MD Status: [facility] ER Study: Chest 1 View (Portable) Date of Exam: 01/01/24 Exam# [id number] Ordering Dr: Thanh Mcdonald DO [id number] INDICATION: chest pain EXAMINATION/TECHNIQUE: X-RAY - XR Chest 1 View COMPARISON: 12/04/2023. FINDINGS: The lungs are clear. The cardiomediastinal silhouette is unremarkable. No pleural effusion or pneumothorax. Degenerative changes of the thoracic spine. RAD/Chest 1 View (Portable) IMPRESSION: No acute radiographic abnormalities. Electronically Signed: Alexx Echavarria MD at 19:49 EDT , CC: Dr. Savita Ahn MD; Dr. Thanh Mcdonald DO Cover Inspector: Signed Normal [facility] Emergency Department Summary on 01-01-2024 Emergency Department Summary [facility] Medical Records Department [address] [place] [address] Emergency Department Summary 01/01/24 MR#: [id number] Acct: [id number] Name: FAUSTINA GLASGOW Rep #: [id number] : 1975 48 From: Thanh Mcdonald DO [...] her carotid arteries which were also normal. [facility] Medical History Seizure disorder Meningioma Meningioma Vitamin [...] following commands knew that she was at [facility] there is 2023 Skin: Warm, dry, [...] is o (more content not included)... Normal [facility] L501.4020on 01-01-2024 TROPONIN-I HS 4 pg/mL Normal 3.0-54.0 [facility] Comment on above: Result Comment: Plea se Note: New Test Units and Gender Specific Reference Ranges. For more information see Policy Stat Procedure [place] High Sensitivity Troponin (TNIH) and attachments. Performed By: #### L 501.4020 #### [facility] Laboratory [address] [facility] [place], [place], [address] L501.5425on 01-01-2024 TROPONIN-I HS < 3 Low 3.0-54.0 [facility] Comment on above: Order Comment: 1Y Result Comment: Plea se Note: New Test Units and Gender Specific Reference Ranges. For more information see Policy Stat Procedure [place] High Sensitivity Troponin (TNIH) and attachments. Performed By: #### L 501.65927, L506.0400 #### [facility] Laboratory [address] [place], [address] MRI SPINE LUMBAR W/ + W/O CO [...] 12/29/2023 6:42:46 PM Ordering Provider: KARY Yusuf [facility] MRI SPINE CERVICAL W/ + W/O [...] 12/25/2023 4:25:43 PM Ordering Provider: KARY GALINDO [facility] MRI SPINE THORACIC W/ + W/O CONTRASTon [...] 12/25/2023 4:23:33 PM Ordering Provider: KARY GALINDO [facility] Internal Medicine Office Vis amy 12-15-2023 Internal Medicine Office Visit [facility] [facility] [place] [address] OFFICE VISIT Date of Service: 12/16/23 MR#: [id number] Acct: [id number] Name: FAUSTINA GLASGOW Rep #: [id number] : 1975 Provider: Dr. Savita harris MD Age/Sex: 48/F Location: [facility] Status: Signed Intake Vital Signs 12/04/23 01:07 [...] Chief Complaint: burning in stomach/ dark stools Chief Ophthalmic Technician Required: No Accompanied by: Self Is patient [...] some nause (more content not included)... Normal [facility] 12 Lead EKGon 12-04-2023 12 Lead EKG [facility] Cardiovascular Services [address] [place] [address] 12 Lead EKG 12/04/23 0219 MR#: [id number] Acct: [id number] Name: FAUSTINA GLASGOW Rep #: [id number] : 1975 48 From: Roel Greene MD [...] ECG Confirmed by JOHANA WONG, ROEL ([id number]), story editor KELLY VINCENT ([id number]) on 12/07/2023 7:29:00 AM Referred By: Confirmed By:ROEL GREENE MD 12/07/23 0729 Roel Greene MD CC: Dr. Savita Ahn MD; Dr. Thanh Mcdonald DO Signed Normal [facility] Basic Metabolic Profile (BMP )on 12-04-2023 BUN/CRE 10.2 RATIO Normal 10-20 [facility] Comment on above: Order Comment: 'TROP ' Serial specimen #1, #2 or #3: 1 Performed By: #### L 501.5200, L500.2500, L501.9520, L100.0100, L501.4020 #### [facility] Laboratory [address] [place], [address] CA,Total 8.7 mg/dL Normal 8.5-10.1 [facility] Comment on above: Order Comment: 'TROP ' Serial specimen #1, #2 or #3: 1 Performed By: #### L 501.5200, L500.2500, L501.9520, L100.0100, L501.4020 #### [facility] Laboratory [address] [place], [address] Chloride [Moles/Vol] 109 mmol/L High 98-107 [facility] Comment on above: Order Comment: 'TROP ' Serial specimen #1, #2 or #3: 1 Performed By: #### L 501.5200, L500.2500, L501.9520, L100.0100, L501.4020 #### [facility] Laboratory [address] [place], [address] CO2 [Moles/Vol] 26.0 mmol/L Normal 21.0-32.0 [facility] Comment on above: Order Comment: 'TROP ' Serial specimen #1, #2 or #3: 1 Performed By: #### L 501.5200, L500.2500, L501.9520, L100.0100, L501.4020 #### [facility] Laboratory [address] [place], [address] Creatinine [Mass/Vol] 0.98 mg/dL Normal 0.55-1.02 [facility] Comment on above: Order Comment: 'TROP ' Serial specimen #1, #2 or #3: 1 Result Comment: The validity of the calculated GFR GFRAA in patients over 70 years has not been determined. Clinical correlation is essential. Performed By: #### L 501.5200, L500.2500, L501.9520, L100.0100, L501.4020 #### [facility] Laboratory [address] [place], [address] ECRCL 73.94 ml/min Normal [facility] Comment on above: Order Comment: 'TROP ' Serial specimen #1, #2 or #3: 1 Performed By: #### L 501.5200, L500.2500, L501.9520, L100.0100, L501.4020 #### [facility] Laboratory [address] [place], [address] EST GFR - AA 77 mL/min Normal >60 [facility] Comment on above: Order Comment: 'TROP ' Serial specimen #1, #2 or #3: 1 Result Comment: Afri can [place] GFR Calc Performed By: #### L 501.5200, L500.2500, L501.9520, L100.0100, L501.4020 #### [facility] Laboratory [address] [place], [address] GAP 7 Normal 5-15 [facility] Comment on above: Order Comment: 'TROP ' Serial specimen #1, #2 or #3: 1 Performed By: #### L 501.5200, L500.2500, L501.9520, L100.0100, L501.4020 #### [facility] Laboratory [address] [place], [address] GFR/1.73 sq M.predicted among non-blacks MDRD (S/P/Bld) [Vol rate/Area] 64 mL/min/{1.73_m2} Normal >60 [facility] Comment on above: Order Comment: 'TROP ' Serial specimen #1, #2 or #3: 1 Result Comment: Non- GFR Calc Performed By: #### L 501.5200, L500.2500, L501.9520, L100.0100, L501.4020 #### [facility] Laboratory [address] [place], [address] Glucose [Mass/Vol] 99 mg/dL Normal 74-106 [facility] Comment on above: Order Comment: 'TROP ' Serial specimen #1, #2 or #3: 1 Performed By: #### L 501.5200, L500.2500, L501.9520, L100.0100, L501.4020 #### [facility] Laboratory [address] [place], [address] Potassium [Moles/Vol] 3.1 mmol/L Low 3.5-5.1 [facility] Comment on above: Order Comment: 'TROP ' Serial specimen #1, #2 or #3: 1 Performed By: #### L 501.5200, L500.2500, L501.9520, L100.0100, L501.4020 #### [facility] Laboratory [address] [place], [address] Sodium [Moles/Vol] 142 mmol/L Normal 136-145 [facility] Comment on above: Order Comment: 'TROP ' Serial specimen #1, #2 or #3: 1 Performed By: #### L 501.5200, L500.2500, L501.9520, L100.0100, L501.4020 #### [facility] [address] [place], [address] Urea nitrogen [Mass/Vol] 10 mg/dL Normal 7-18 [facility] Comment on above: Order Comment: 'TROP ' Serial specimen #1, #2 or #3: 1 Performed By: #### L 501.5200, L500.2500, L501.9520, L100.0100, L501.4020 #### [facility] Laboratory [address] [place], [address] Brain/Head without Contrasto n 12-04-2023 Brain/Head without Contrast [facility] Imaging Services [address] [place] [address] Brain/Head without Contrast MR#: [id number] Acct: [id number] Name: FAUSTINA GLASGOW Rep #: [id number] : 1975 F 48 From: Louie Heard PCP: Dr. Savita Ahn MD Status: [facility] Study: Brain/Head without Contrast Date of Exam: 11/08 09/29 Exam# [id number] Ordering Dr: Thanh Mcdonald DO [id number] INDICATION: diffuse tingling, hx of meningioma EXAMINATION: [...] 2:16 EDT Reading Location ID and State: [address] [place] [address] Tel , Service support , CC: Dr. Savita Ahn MD; Dr. Thanh Mcdonald DO Cover Inspector: Signed Normal [facility] CBC W/Diff, Automatedon 11-08 Absolute Lymph 5.18 X10 3/uL High 0.83-4.51 [facility] Comment on above: Performed By: #### L 501.5200, L500.2500, L501.9520, L100.0100, L501.4020 #### [facility] Laboratory [address] [place], [address] Absolute Neut 5.0 X10 3/uL Normal 2.0-7.7 [facility] Comment on above: Performed By: #### L 501.5200, L500.2500, L501.9520, L100.0100, L501.4020 #### [facility] Laboratory [address] [place], [address] Basophils/100 WBC (Bld) 0.6 % Normal 0-1 [facility] Comment on above: Performed By: #### L 501.5200, L500.2500, L501.9520, L100.0100, L501.4020 #### [facility] Laboratory [address] [place], [address] Eosinophils/100 WBC (Bld) 0.9 % Normal 0-5 [facility] Comment on above: Performed By: #### L 501.5200, L500.2500, L501.9520, L100.0100, L501.4020 #### [facility] Laboratory [address] [place], [address] Erythrocyte distribution width (RBC) [Ratio] 14.7 % High 11.6-14.6 [facility] Comment on above: Performed By: #### L 501.5200, L500.2500, L501.9520, L100.0100, L501.4020 #### [facility] Laboratory [address] [place], [address] Hematocrit (Bld) [Volume fraction] 44.9 % Normal 37-47 [facility] Comment on above: Performed By: #### L 501.5200, L500.2500, L501.9520, L100.0100, L501.4020 #### [facility] Laboratory [address] [place], [address] Hemoglobin (Bld) [Mass/Vol] 14.5 g/dL Normal 12.0-15.0 [facility] Comment on above: Performed By: #### L 501.5200, L500.2500, L501.9520, L100.0100, L501.4020 #### [facility] Laboratory [address] [place], [address] IG% 0.600 Normal 0.0-0.9 [facility] Comment on above: Result Comment: IG% - Immature Granulocytes (promyelocytes, myelocytes and metamyelocytes) > 1% indicates that a LEFT SHIFT is Present. Performed By: #### L 501.5200, L500.2500, L501.9520, L100.0100, L501.4020 #### [facility] [address] [place], [address] Lymphocytes/100 WBC (Bld) 48.5 % High 19-41 [facility] Comment on above: Performed By: #### L 501.5200, L500.2500, L501.9520, L100.0100, L501.4020 #### [facility] Laboratory [address] [place], [address] MCH (RBC) [Entitic mass] 27.3 pg Normal 27.0-32.0 [facility] Comment on above: Performed By: #### L 501.5200, L500.2500, L501.9520, L100.0100, L501.4020 #### [facility] Laboratory [address] [place], [address] MCHC (RBC) [Mass/Vol] 32.3 g/dL Normal 32-36 [facility] Comment on above: Performed By: #### L 501.5200, L500.2500, L501.9520, L100.0100, L501.4020 #### [facility] [address] [place], [address] MCV (RBC) [Entitic vol] 84.4 fL Normal 81-99 [facility] Comment on above: Performed By: #### L 501.5200, L500.2500, L501.9520, L100.0100, L501.4020 #### [facility] [address] [place], [address] Monocytes/100 WBC (Bld) 2.9 % Normal 0-10 [facility] Comment on above: Performed By: #### L 501.5200, L500.2500, L501.9520, L100.0100, L501.4020 #### [facility] [address] [place], [address] Neutrophils/100 WBC (Bld) 46.5 % Low 47-70 [facility] Comment on above: Performed By: #### L 501.5200, L500.2500, L501.9520, L100.0100, L501.4020 #### [facility] Laboratory [address] [place], [address] Nucleated RBC (Bld) [#/Vol] 0 10*3/uL Normal 0-5 [facility] Comment on above: Performed By: #### L 501.5200, L500.2500, L501.9520, L100.0100, L501.4020 #### [facility] Laboratory [address] [place], [address] Platelet mean volume (Bld) [Entitic vol] 10.3 fL Normal 6.2-12.0 [facility] Comment on above: Performed By: #### L 501.5200, L500.2500, L501.9520, L100.0100, L501.4020 #### [facility] Laboratory [address] [place], [address] Platelets (Bld) [#/Vol] 253 10*3/uL Normal 150-450 [facility] Comment on above: Performed By: #### L 501.5200, L500.2500, L501.9520, L100.0100, L501.4020 #### [facility] [address] [place], [address] RBC (Bld) [#/Vol] 5.32 10*6/uL Normal 4.2-5.4 [facility] Comment on above: Performed By: #### L 501.5200, L500.2500, L501.9520, L100.0100, L501.4020 #### [facility] [address] [place], [address] RDW SD 44.5 fl High 35.1-43.9 [facility] Comment on above: Performed By: #### L 501.5200, L500.2500, L501.9520, L100.0100, L501.4020 #### [facility] Laboratory [address] [place], [address] WBC (Bld) [#/Vol] 10.7 10*3/uL Normal 4.4-11.0 [facility] Comment on above: Performed By: #### L 501.5200, L500.2500, L501.9520, L100.0100, L501.4020 #### [facility] Laboratory [address] [place], [address] Chest PA and Lateralon 12-03 Chest PA and Lateral [facility] Imaging Services [address] [place] [address] Chest PA and Lateral MR#: [id number] Acct: [id number] Name: FAUSTINA GLASGOW Rep #: [id number] : 1975 F 48 From: Louie Heard PCP: Dr. Savita Ahn MD Status: [facility] ER Study: Chest PA and Lateral Date of Exam: 12/04/23 Exam# [id number] Ordering Dr: Thanh Mcdonald DO [id number] INDICATION: chest pain EXAMINATION/TECHNIQUE: X-RAY - XR [...] 2:17 EDT Reading Location ID and State: [facility] / [place] Tel , Service support , CC: Dr. Savita Ahn MD; Dr. 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 She denies any recent sick contacts. [facility] Medical History Seizure disorder Meningioma Meningioma Vitamin [...] following commands knew that she was at [facility] year is 2023. Sensation grossly intact [...] 12/04/23 03:00 (more content not included)... Normal [facility] Free T3on 12-04-2023 Free T3 [Mass/Vol] 2.5 pg/mL Normal 2.18-3.98 [facility] Comment on above: Performed By: #### L 501.93030, L506.0400 #### [facility] Laboratory [address] [place], [address] L501.4020on 12-04-2023 TROPONIN-I HS 6 pg/mL Normal 3.0-54.0 [facility] Comment on above: Order Comment: 'TROP ' Serial specimen #1, #2 or #3: 1 Result Comment: Pleata se Note: New Test Units and Gender Specific Reference Ranges. For more information see Policy Stat Procedure [place] High Sensitivity Troponin (TNIH) and attachments. Performed By: #### L 501.5200, L500.2500, L501.9520, L100.0100, L501.4020 #### [facility] Laboratory [address] [place], [address] M100.678on 12-04-2023 M100.678 Pending SARS-CoV-2 (COVID 19) Negative INFLUENZA A Negative INFLUENZA B Negative RSV PCR Negative Normal [facility] Comment on above: Performed By: #### L 501.77946, L506.0400 #### [facility] Laboratory [address] [place], [address] Magnesiumon 12-04-2023 Magnesium [Mass/Vol] 2.1 mg/dL Normal 1.6-2.6 [facility] Comment on above: Order Comment: 'TROP ' Serial specimen #1, #2 or #3: 1 Performed By: #### L 501.5200, L500.2500, L501.9520, L100.0100, L501.4020 #### [facility] [address] [place], [address] T4 Free Directon 12-04-2023 T4 FREE DIRECT 0.83 ng/dL Normal 0.76-1.46 [facility] Comment on above: Performed By: #### L 501.74793, L506.0400 #### [facility] Laboratory [address] [place], [address] Thyroid Stim Hormone (TSH)on 12-04-2023 TSH 11.400 uIU/mL High 0.358-3.740 [facility] Comment on above: Order Comment: 'TROP ' Serial specimen #1, #2 or #3: 1 Performed By: #### L 501.5200, L500.2500, L501.9520, L100.0100, L501.4020 #### [facility] Laboratory [address] [place], [address] .Auto Diffon 12-01-2023 Basophil, Absolute 0.1 10 3/mcL Normal 0.0-0.2 [facility] Comment on above: Performed By: #### M DW, GFR, ANEU, TROPHS, CBC, BMP, ADIFF #### [address] [address] Basophils/100 WBC (Bld) 0.6 % Normal 0.0-2.5 [facility] Comment on above: Performed By: #### M DW, GFR, ANEU, TROPHS, CBC, BMP, ADIFF #### [address] [address] Eosinophil, Absolute 0.1 10 3/mcL Normal 0.0-0.7 [facility] Comment on above: Performed By: #### M DW, GFR, ANEU, TROPHS, CBC, BMP, ADIFF #### [address] [address] Eosinophils/100 WBC (Bld) 1.2 % Normal 0.0-7.0 [facility] Comment on above: Performed By: #### M DW, GFR, ANEU, TROPHS, CBC, BMP, ADIFF #### [address] [address] Lymphocyte, Absolute 2.2 10 3/mcL Normal 0.9-4.3 [facility] Comment on above: Performed By: #### M DW, GFR, ANEU, TROPHS, CBC, BMP, ADIFF #### [address] [address] Lymphocytes/100 WBC (Bld) 27.4 % Normal 20.0-40.0 [facility] Comment on above: Performed By: #### M DW, GFR, ANEU, TROPHS, CBC, BMP, ADIFF #### [address] [address] Monocyte, Absolute 0.2 10 3/mcL Normal 0.1-1.4 [facility] Comment on above: Performed By: #### M DW, GFR, ANEU, TROPHS, CBC, BMP, ADIFF #### [address] [address] Monocytes/100 WBC (Bld) 2.6 % Normal 2.0-13.0 [facility] Comment on above: Performed By: #### M DW, GFR, ANEU, TROPHS, CBC, BMP, ADIFF #### [address] [place], [place] [address] Neutrophils/100 WBC (Bld) 68.2 % Normal 50.0-75.0 [facility] Comment on above: Performed By: #### M DW, GFR, ANEU, TROPHS, CBC, BMP, ADIFF #### [address] [place], [place] [address] .GFRon 12-01-2023 GFR 70 ml/min/1.73sqm Normal [facility] Comment on above: Result Comment: GFR [...] GFR, ANEU, TROPHS, CBC, BMP, ADIFF #### [address] [place], [place] [address] GFR Non- 57 ml/min/1.73sqm Normal [facility] Comment on above: Result Comment: GFR [...] GFR, ANEU, TROPHS, CBC, BMP, ADIFF #### [address] [address] .MDWon 12-01-2023 Monocyte Distribution Width 19.74 Normal 0.00-20.00 [facility] Comment on above: Result Comment: For ED adult patients suspected of sepsis, MDW<=20.0 does not rule out sepsis or risk of sepsis Performed By: #### M DW, GFR, ANEU, TROPHS, CBC, BMP, ADIFF #### [address] [address] .NEUABSon 12-01-2023 Neutrophil, Absolute 5.6 10 3/mcL Normal 2.3-8.1 [facility] Comment on above: Performed By: #### M DW, GFR, ANEU, TROPHS, CBC, BMP, ADIFF #### [address] [address] BMPon 12-01-2023 BUN/Creatinine Ratio 8 ratio Normal 7-27 [facility] Comment on above: Performed By: #### M DW, GFR, ANEU, TROPHS, CBC, BMP, ADIFF #### [address] [address] Calcium [Mass/Vol] 9.2 mg/dL Normal 8.4-10.2 [facility] Comment on above: Performed By: #### M DW, GFR, ANEU, TROPHS, CBC, BMP, ADIFF #### [address] [address] Chloride [Moles/Vol] 106 mmol/L Normal 98-107 [facility] Comment on above: Performed By: #### M DW, GFR, ANEU, TROPHS, CBC, BMP, ADIFF #### [address] [address] CO2 [Moles/Vol] 28 mmol/L Normal 22-29 [facility] Comment on above: Performed By: #### M DW, GFR, ANEU, TROPHS, CBC, BMP, ADIFF #### [address] [address] Creatinine [Mass/Vol] 1.02 mg/dL Normal 0.55-1.02 [facility] Comment on above: Result Comment: Test ing performed on Siemens Dimension EXL analyzer using a modified kinetic Mynor technique. Performed By: #### M DW, GFR, ANEU, TROPHS, CBC, BMP, ADIFF #### [address] [address] Electrolyte Balance 10.0 mEq/L Normal 4.0-15.0 [facility] Comment on above: Performed By: #### M DW, GFR, ANEU, TROPHS, CBC, BMP, ADIFF #### [address] [address] Glucose [Mass/Vol] 94 mg/dL Normal 70-105 [facility] Comment on above: Performed By: #### M DW, GFR, ANEU, TROPHS, CBC, BMP, ADIFF #### [address] [address] Potassium [Moles/Vol] 4.1 mmol/L Normal 3.5-5.1 [facility] Comment on above: Performed By: #### M DW, GFR, ANEU, TROPHS, CBC, BMP, ADIFF #### [address] [address] Sodium [Moles/Vol] 144 mmol/L Normal 136-145 [facility] Comment on above: Performed By: #### M DW, GFR, ANEU, TROPHS, CBC, BMP, ADIFF #### [address] [address] Urea nitrogen [Mass/Vol] 8 mg/dL Normal 7-18 [facility] Comment on above: Performed By: #### M DW, GFR, ANEU, TROPHS, CBC, BMP, ADIFF #### [address] [address] CBCon 12-01-2023 Erythrocyte distribution width (RBC) [Ratio] 14.8 % Normal 11.5-15.5 [facility] Comment on above: Performed By: #### M DW, GFR, ANEU, TROPHS, CBC, BMP, ADIFF #### [address] [address] Hematocrit (Bld) [Volume fraction] 45.4 % Normal 34.0-46.0 [facility] Comment on above: Performed By: #### M DW, GFR, ANEU, TROPHS, CBC, BMP, ADIFF #### [place] [address] Hgb 15.4 G/dL Normal 12.0-16.0 [facility] Comment on above: Performed By: #### M DW, GFR, ANEU, TROPHS, CBC, BMP, ADIFF #### [place] [address] MCH (RBC) [Entitic mass] 28.2 pg Normal 27.0-33.0 [facility] Comment on above: Performed By: #### M DW, GFR, ANEU, TROPHS, CBC, BMP, ADIFF #### [address] [address] MCHC 33.9 G/dL Normal 32.0-36.0 [facility] Comment on above: Performed By: #### M DW, GFR, ANEU, TROPHS, CBC, BMP, ADIFF #### [address] [address] MCV (RBC) [Entitic vol] 83.1 fL Normal 80.0-99.0 [facility] Comment on above: Performed By: #### M DW, GFR, ANEU, TROPHS, CBC, BMP, ADIFF #### [place] [address] Platelet 232 10 3/mcL Normal 150-450 [facility] Comment on above: Performed By: #### M DW, GFR, ANEU, TROPHS, CBC, BMP, ADIFF #### [id number] [place], [place] [address] Platelet mean volume (Bld) [Entitic vol] 8.0 fL Normal 6.6-10.5 [facility] Comment on above: Performed By: #### M DW, GFR, ANEU, TROPHS, CBC, BMP, ADIFF #### [address] [place], [place] [address] RBC 5.46 10 6/mcL High 4.10-5.30 [facility] Comment on above: Performed By: #### M DW, GFR, ANEU, TROPHS, CBC, BMP, ADIFF #### [address] [place] [address] WBC 8.2 10 3/mcL Normal 4.5-10.8 [facility] Comment on above: Performed By: #### M DW, GFR, ANEU, TROPHS, CBC, BMP, ADIFF #### [address] [place] [address] LABORATORYOrdered By: SYSTEM SYSTEM on 12-01-2023 Basophils [...] a homogeneous sandwich chemiluminescent immunoassay based on Sensoraide technology. Urea nitrogen [Mass/Vol] 8 mg/dL Normal 7 - 18 mg/dL AO ADM SS Urea nitrogen/Creatinine [Mass ratio] 8 ratio Normal 7 - 27 ratio AO ADM SS WBC (Bld) [#/Vol] 8.2 103/mcL Normal 4.5 - 10.8 10^3/mcL AO Workflow SS TROPHSon 12-01-2023 High Sensitivity Troponin I <4 Normal 0-51 [facility] Comment on above: Result Comment: High Sensitive Troponin I Reference Ranges: Female: 0-51 ng/L Male: 0-76 ng/L Testing performed on Dimension EXL using a homogeneous sandwich chemiluminescent immunoassay based on Sensoraide technology. Performed By: #### M DW, GFR, ANEU, TROPHS, CBC, BMP, ADIFF #### [address] [place], [place] [address] CBC W/Diff, Automatedon 11-07 Absolute Lymph 3.59 X10 3/uL Normal 0.83-4.51 [facility] Comment on above: Performed By: #### L 501.2450, L100.0100, L500.4050 ####[facility] [address] [place], [address] Absolute Neut 4.1 X10 3/uL Normal 2.0-7.7 [facility] Comment on above: Performed By: #### L 501.2450, L100.0100, L500.4050 ####[facility] [address] [place], [address] Basophils/100 WBC (Bld) 0.7 % Normal 0-1 [facility] Comment on above: Performed By: #### L 501.2450, L100.0100, L500.4050 ####[facility] [address] [place], [address] Eosinophils/100 WBC (Bld) 1.6 % Normal 0-5 [facility] Comment on above: Performed By: #### L 501.2450, L100.0100, L500.4050 ####[facility] [address] [place], [address] Erythrocyte distribution width (RBC) [Ratio] 14.6 % Normal 11.6-14.6 [facility] Comment on above: Performed By: #### L 501.2450, L100.0100, L500.4050 ####[facility] [address] [place], [address] Hematocrit (Bld) [Volume fraction] 45.0 % Normal 37-47 [facility] Comment on above: Performed By: #### L 501.2450, L100.0100, L500.4050 ####[facility] [address] [place], [address] Hemoglobin (Bld) [Mass/Vol] 14.7 g/dL Normal 12.0-15.0 [facility] Comment on above: Performed By: #### L 501.2450, L100.0100, L500.4050 ####[facility] [address] [place], [address] IG% 0.500 Normal 0.0-0.9 [facility] Comment on above: Result Comment: IG% - Immature Granulocytes (promyelocytes, myelocytes and metamyelocytes) > 1% indicates that a LEFT SHIFT is Present. Performed By: #### L 501.2450, L100.0100, L500.4050 ####[facility] [address] [place], [address] Lymphocytes/100 WBC (Bld) 43.4 % High 19-41 [facility] Comment on above: Performed By: #### L 501.2450, L100.0100, L500.4050 ####[facility] [address] [place], [address] MCH (RBC) [Entitic mass] 27.4 pg Normal 27.0-32.0 [facility] Comment on above: Performed By: #### L 501.2450, L100.0100, L500.4050 ####[facility] [address] [place], [address] MCHC (RBC) [Mass/Vol] 32.7 g/dL Normal 32-36 [facility] Comment on above: Performed By: #### L 501.2450, L100.0100, L500.4050 ####[facility] [address] [place], [address] MCV (RBC) [Entitic vol] 83.8 fL Normal 81-99 [facility] Comment on above: Performed By: #### L 501.2450, L100.0100, L500.4050 ####[facility] [address] [place], [address] Monocytes/100 WBC (Bld) 4.4 % Normal 0-10 [facility] Comment on above: Performed By: #### L 501.2450, L100.0100, L500.4050 ####[facility] [address] [place], [address] Neutrophils/100 WBC (Bld) 49.4 % Normal 47-70 [facility] Comment on above: Performed By: #### L 501.2450, L100.0100, L500.4050 ####[facility] [address] [place], [address] Nucleated RBC (Bld) [#/Vol] 0 10*3/uL Normal 0-5 [facility] Comment on above: Performed By: #### L 501.2450, L100.0100, L500.4050 ####[facility] [address] [place], [address] Platelet mean volume (Bld) [Entitic vol] 10.3 fL Normal 6.2-12.0 [facility] Comment on above: Performed By: #### L 501.2450, L100.0100, L500.4050 ####[facility] [address] [place], [address] Platelets (Bld) [#/Vol] 238 10*3/uL Normal 150-450 [facility] Comment on above: Performed By: #### L 501.2450, L100.0100, L500.4050 ####[facility] [address] [place], [address] RBC (Bld) [#/Vol] 5.37 10*6/uL Normal 4.2-5.4 [facility] Comment on above: Performed By: #### L 501.2450, L100.0100, L500.4050 ####[facility] [address] [place], [address] RDW SD 43.9 fl Normal 35.1-43.9 [facility] Comment on above: Performed By: #### L 501.2450, L100.0100, L500.4050 ####[facility] [address] [place], [address] WBC (Bld) [#/Vol] 8.3 10*3/uL Normal 4.4-11.0 [facility] Comment on above: Performed By: #### L 501.2450, L100.0100, L500.4050 ####[facility] [address] [place], [address] Comprehensive Metabolic Prof caon 11-26-2023 Albumin [Mass/Vol] 3.3 g/dL Normal 3.2-5.0 [facility] Comment on above: Performed By: #### L 501.2450, L100.0100, L500.4050 ####[facility] [address] [place], [address] Albumin/Globulin [Mass ratio] 0.8 {ratio} Low 0.9-2.4 [facility] Comment on above: Performed By: #### L 501.2450, L100.0100, L500.4050 ####[facility] [address] [place], [address] ALK P 102 U/L Normal 45-117 [facility] Comment on above: Performed By: #### L 501.2450, L100.0100, L500.4050 ####[facility] [address] [place], [address] ALT [Catalytic activity/Vol] 24 U/L Normal 13-56 [facility] Comment on above: Performed By: #### L 501.2450, L100.0100, L500.4050 ####[facility] [address] [place], [address] AST [Catalytic activity/Vol] 14 U/L Low 15-37 [facility] Comment on above: Result Comment: Slig ht Hemolysis, Result may be falsely increased. Performed By: #### L 501.2450, L100.0100, L500.4050 ####[facility] [address] [place], [address] Bilirubin [Mass/Vol] 0.20 mg/dL Normal 0.20-1.00 [facility] Comment on above: Result Comment: For patients on eltrombopag therapy, use of Dimension [place] TBIL is not recommended. Performed By: #### L 501.2450, L100.0100, L500.4050 ####[facility] [address] [place], [address] BUN/CRE 12.7 RATIO Normal 10-20 [facility] Comment on above: Performed By: #### L 501.2450, L100.0100, L500.4050 ####[facility] [address] [place], [address] CA,Total 9.2 mg/dL Normal 8.5-10.1 [facility] Comment on above: Performed By: #### L 501.2450, L100.0100, L500.4050 ####[facility] [address] [place], [address] Chloride [Moles/Vol] 107 mmol/L Normal 98-107 [facility] Comment on above: Performed By: #### L 501.2450, L100.0100, L500.4050 ####[facility] [address] [place], [address] CO2 [Moles/Vol] 25.0 mmol/L Normal 21.0-32.0 [facility] Comment on above: Performed By: #### L 501.2450, L100.0100, L500.4050 ####[facility] [address] [place], [address] Creatinine [Mass/Vol] 0.94 mg/dL Normal 0.55-1.02 [facility] Comment on above: Result Comment: The validity of the calculated GFR GFRAA in patients over 70 years has not been determined. Clinical correlation is essential. Performed By: #### L 501.2450, L100.0100, L500.4050 ####[facility] [address] [place], [address] ECRCL 80.39 ml/min Normal [facility] Comment on above: Performed By: #### L 501.2450, L100.0100, L500.4050 ####[facility] [address] [place], [address] EST GFR - AA 81 mL/min Normal >60 [facility] Comment on above: Result Comment: Afri can Niuean GFR Calc Performed By: #### L 501.2450, L100.0100, L500.4050 ####[facility] [address] [place], [address] GAP 6 Normal 5-15 [facility] Comment on above: Performed By: #### L 501.2450, L100.0100, L500.4050 ####[facility] [address] [place], [address] GFR/1.73 sq M.predicted among non-blacks MDRD (S/P/Bld) [Vol rate/Area] 67 mL/min/{1.73_m2} Normal >60 [facility] Comment on above: Result Comment: Non- GFR Calc Performed By: #### L 501.2450, L100.0100, L500.4050 ####[facility] [address] [place], [address] Globulin (S) [Mass/Vol] 4.2 g/dL Normal 2.2-4.2 [facility] Comment on above: Performed By: #### L 501.2450, L100.0100, L500.4050 ####[facility] [address] [place], [address] Glucose [Mass/Vol] 130 mg/dL High 74-106 [facility] Comment on above: Result Comment: Fast ing Glucose result greater than or equal to 126 mg/dL suggests DIABETES MELLITUS per A.D.A. criteria. Performed By: #### L 501.2450, L100.0100, L500.4050 ####[facility] [address] [place], [address] Potassium [Moles/Vol] 3.6 mmol/L Normal 3.5-5.1 [facility] Comment on above: Result Comment: Slig ht Hemolysis, Result may be falsely increased. Performed By: #### L 501.2450, L100.0100, L500.4050 ####[facility] [address] [place], [address] Sodium [Moles/Vol] 138 mmol/L Normal 136-145 [facility] Comment on above: Performed By: #### L 501.2450, L100.0100, L500.4050 ####[facility] [address] [place], [address] T PROT 7.5 g/dL Normal 6.4-8.2 [facility] Comment on above: Performed By: #### L 501.2450, L100.0100, L500.4050 ####[facility] [address] [place], [address] Urea nitrogen [Mass/Vol] 12 mg/dL Normal 7-18 [facility] Comment on above: Performed By: #### L 501.2450, L100.0100, L500.4050 ####[facility] [address] [place], [address] Emergency Department Summary on 11-26-2023 Emergency Department Summary [facility] Medical Records Department [address] [place] [address] Emergency Department Summary 11/26/23 MR#: [id number] Acct: [id number] Name: FAUSTINA GLASGOW Rep #: [id number] : 1975 48 From: Nelson Ba MD [...] motor deficits (more content not included)... Normal [facility] Lipaseon 11-26-2023 Lipase [Catalytic activity/Vol] 48 U/L Normal 13-75 [facility] Comment on above: Result Comment: Stacy dinh note: LIPASE revised reference range effective 22. New Lipase methodology. Expected to produce lower values than the previous assay method. NEW Reference Range: 13 - 75 U/L Performed By: #### L 501.2450, L100.0100, L500.4050 ####[facility] [address] [place], [place], [address] KEPPRA (LEVETIRACETAM)on KEPPRA 13.6 ug/mL Normal 10.0-40.0 [facility] Comment on above: Result Comment: Perf ormed at: - [facility] [id number] [employer]: Gordon Mcqueen MD, Phone: [phone] Performed By: #### L 100.0100, L500.4050, L3310.0000 ####[facility] [address] [place], [address] Comprehensive Metabolic Prof ilon 11-11-2023 Albumin [Mass/Vol] 3.4 g/dL Normal 3.2-5.0 [facility] Comment on above: Performed By: #### L 100.0100, L500.4050, L3310.0000 ####[facility] [address] [place], [address] Albumin/Globulin [Mass ratio] 0.8 {ratio} Low 0.9-2.4 [facility] Comment on above: Performed By: #### L 100.0100, L500.4050, L3310.0000 ####[facility] [address] [place], [address] ALK P 115 U/L Normal 45-117 [facility] Comment on above: Performed By: #### L 100.0100, L500.4050, L3310.0000 ####[facility] [address] [place], [address] ALT [Catalytic activity/Vol] 22 U/L Normal 13-56 [facility] Comment on above: Performed By: #### L 100.0100, L500.4050, L3310.0000 ####[facility] [address] [place], [address] AST [Catalytic activity/Vol] 13 U/L Low 15-37 [facility] Comment on above: Performed By: #### L 100.0100, L500.4050, L3310.0000 ####[facility] [address] [place], [address] Bilirubin [Mass/Vol] 0.30 mg/dL Normal 0.20-1.00 [facility] Comment on above: Result Comment: For patients on eltrombopag therapy, use of Dimension [place] TBIL is not recommended. Performed By: #### L 100.0100, L500.4050, L3310.0000 ####[facility] [address] [place], [address] BUN/CRE 10.6 RATIO Normal 10-20 [facility] Comment on above: Performed By: #### L 100.0100, L500.4050, L3310.0000 ####[facility] [address] [place], [address] CA,Total 9.3 mg/dL Normal 8.5-10.1 [facility] Comment on above: Performed By: #### L 100.0100, L500.4050, L3310.0000 ####[facility] [address] [place], [address] Chloride [Moles/Vol] 105 mmol/L Normal 98-107 [facility] Comment on above: Performed By: #### L 100.0100, L500.4050, L3310.0000 ####[facility] [address] [place], [address] CO2 [Moles/Vol] 29.0 mmol/L Normal 21.0-32.0 [facility] Comment on above: Performed By: #### L 100.0100, L500.4050, L3310.0000 ####[facility] [address] [place], [address] Creatinine [Mass/Vol] 0.94 mg/dL Normal 0.55-1.02 [facility] Comment on above: Result Comment: The validity of the calculated GFR GFRAA in patients over 70 years has not been determined. Clinical correlation is essential. Performed By: #### L 100.0100, L500.4050, L3310.0000 ####[facility] [address] [place], [address] ECRCL 76.96 ml/min Normal [facility] Comment on above: Performed By: #### L 100.0100, L500.4050, L3310.0000 ####[facility] [address] [place], [address] EST GFR - AA 81 mL/min Normal >60 [facility] Comment on above: Result Comment: Afri can Ni[place]an GFR Calc Performed By: #### L 100.0100, L500.4050, L3310.0000 ####[facility] [address] [place], [address] GAP 5 Normal 5-15 [facility] Comment on above: Performed By: #### L 100.0100, L500.4050, L3310.0000 ####[facility] [address] [place], [address] GFR/1.73 sq M.predicted among non-blacks MDRD (S/P/Bld) [Vol rate/Area] 67 mL/min/{1.73_m2} Normal >60 [facility] Comment on above: Result Comment: Non- GFR Calc Performed By: #### L 100.0100, L500.4050, L3310.0000 ####[facility] [address] [place], [address] Globulin (S) [Mass/Vol] 4.0 g/dL Normal 2.2-4.2 [facility] Comment on above: Performed By: #### L 100.0100, L500.4050, L3310.0000 ####[facility] [address] [place], [address] Glucose [Mass/Vol] 90 mg/dL Normal 74-106 [facility] Comment on above: Performed By: #### L 100.0100, L500.4050, L3310.0000 ####[facility] [address] [place], [address] Potassium [Moles/Vol] 4.0 mmol/L Normal 3.5-5.1 [facility] Comment on above: Performed By: #### L 100.0100, L500.4050, L3310.0000 ####[facility] [address] [place], [address] Sodium [Moles/Vol] 139 mmol/L Normal 136-145 [facility] Comment on above: Performed By: #### L 100.0100, L500.4050, L3310.0000 ####[facility] [address] [place], [address] T PROT 7.4 g/dL Normal 6.4-8.2 [facility] Comment on above: Performed By: #### L 100.0100, L500.4050, L3310.0000 ####[facility] [address] [place], [address] Urea nitrogen [Mass/Vol] 10 mg/dL Normal 7-18 [facility] Comment on above: Performed By: #### L 100.0100, L500.4050, L3310.0000 ####[facility] [address] [place], [address] Emergency Department Summary on 11-11-2023 Emergency Department Summary [facility] Medical Records Department [address] [place] [address] Emergency Department Summary 11/11/23 MR#: [id number] Acct: [id number] Name: FAUSTINA GLASGOW Rep #: [id number] : 1975 48 From: Andrea Mcmullen MD PCP: Dr. Savita Ahn MD Status:DEP ER Location: ED ADDENDUM by Dr. Andrea Mcmullen MD on 11/11/23 at 0252 EKG was obtained per nurse protocol. EKG was normal. Rate is 80. MA interval is 142 ms. Cures duration 78 ms. QT duration 382 ms. Hendrix is normal 11/11/23 0252 Cosigner Signature (if [...] Constitutional Narrative (more content not included)... Normal [facility] 12 Lead EKGon 11-10-2023 12 Lead EKG [facility] [address] [place] [address] 12 Lead EKG 11/10/23 2317 MR#: [id number] Acct: [id number] Name: FAUSTINA GLASGOW Rep #: [id number] : 1975 48 From: Roel Greene MD [...] ECG Confirmed by ROEL GREENE MD ([id number]), story editor BIGG MORILLO ([id number]) on 11/12/2023 1:46:35 PM Referred By: MELINDA Confirmed By:ROEL GREENE MD 11/12/23 1346 Date Roel Greene MD CC: Dr. Savita Ahn MD; Dr. Andrea Mcmullen MD Signed Normal [facility] CBC W/Diff, Automatedon 09-0 -2023 Absolute Lymph 3.03 X10 3/uL Normal 0.83-4.51 [facility] Comment on above: Performed By: #### L 100.0100, L500.4050, L3310.0000 ####[facility] [address] [place], [address] Absolute Neut 4.7 X10 3/uL Normal 2.0-7.7 [facility] Comment on above: Performed By: #### L 100.0100, L500.4050, L3310.0000 ####[facility] [address] [place], [address] Basophils/100 WBC (Bld) 0.6 % Normal 0-1 [facility] Comment on above: Performed By: #### L 100.0100, L500.4050, L3310.0000 ####[facility] [address] [place], [address] Eosinophils/100 WBC (Bld) 1.5 % Normal 0-5 [facility] Comment on above: Performed By: #### L 100.0100, L500.4050, L3310.0000 ####[facility] [address] [place], [address] Erythrocyte distribution width (RBC) [Ratio] 14.6 % Normal 11.6-14.6 [facility] Comment on above: Performed By: #### L 100.0100, L500.4050, L3310.0000 ####[facility] [address] [place], [address] Hematocrit (Bld) [Volume fraction] 44.6 % Normal 37-47 [facility] Comment on above: Performed By: #### L 100.0100, L500.4050, L3310.0000 ####[facility] [address] [place], [address] Hemoglobin (Bld) [Mass/Vol] 14.3 g/dL Normal 12.0-15.0 [facility] Comment on above: Performed By: #### L 100.0100, L500.4050, L3310.0000 ####[facility] [address] [place], [address] IG% 0.600 Normal 0.0-0.9 [facility] Comment on above: Result Comment: IG% - Immature Granulocytes (promyelocytes, myelocytes and metamyelocytes) > 1% indicates that a LEFT SHIFT is Present. Performed By: #### L 100.0100, L500.4050, L3310.0000 ####[facility] [address] [place], [address] Lymphocytes/100 WBC (Bld) 36.9 % Normal 19-41 [facility] Comment on above: Performed By: #### L 100.0100, L500.4050, L3310.0000 ####[facility] [address] [place], [address] MCH (RBC) [Entitic mass] 27.2 pg Normal 27.0-32.0 [facility] Comment on above: Performed By: #### L 100.0100, L500.4050, L3310.0000 ####[facility] [address] [place], [address] MCHC (RBC) [Mass/Vol] 32.1 g/dL Normal 32-36 [facility] Comment on above: Performed By: #### L 100.0100, L500.4050, L3310.0000 ####[facility] [address] [place], [address] MCV (RBC) [Entitic vol] 84.8 fL Normal 81-99 [facility] Comment on above: Performed By: #### L 100.0100, L500.4050, L3310.0000 ####[facility] [address] [place], [address] Monocytes/100 WBC (Bld) 3.5 % Normal 0-10 [facility] Comment on above: Performed By: #### L 100.0100, L500.4050, L3310.0000 ####[facility] [address] [place], [address] Neutrophils/100 WBC (Bld) 56.9 % Normal 47-70 [facility] Comment on above: Performed By: #### L 100.0100, L500.4050, L3310.0000 ####[facility] [address] [place], [address] Nucleated RBC (Bld) [#/Vol] 0 10*3/uL Normal 0-5 [facility] Comment on above: Performed By: #### L 100.0100, L500.4050, L3310.0000 ####[facility] [address] [place], [address] Platelet mean volume (Bld) [Entitic vol] 10.2 fL Normal 6.2-12.0 [facility] Comment on above: Performed By: #### L 100.0100, L500.4050, L3310.0000 ####[facility] [address] [place], [address] Platelets (Bld) [#/Vol] 237 10*3/uL Normal 150-450 [facility] Comment on above: Performed By: #### L 100.0100, L500.4050, L3310.0000 ####[facility] [address] [place], [address] RBC (Bld) [#/Vol] 5.26 10*6/uL Normal 4.2-5.4 [facility] Comment on above: Performed By: #### L 100.0100, L500.4050, L3310.0000 ####[facility] [address] [place], [address] RDW SD 44.8 fl High 35.1-43.9 [facility] Comment on above: Performed By: #### L 100.0100, L500.4050, L3310.0000 ####[facility] [address] [place], [address] WBC (Bld) [#/Vol] 8.2 10*3/uL Normal 4.4-11.0 [facility] Comment on above: Performed By: #### L 100.0100, L500.4050, L3310.0000 ####[facility] [address] [place], [address] Internal Medicine Office Vis amy 10-23-2023 Internal Medicine Office Visit [facility] [address] [place] [address] [place] [address] OFFICE VISIT Date of Service: 10/23/23 MR#: [id number] Acct: [id number] Name: FAUSTINA GLASGOW Rep #: [id number] : 1975 Provider: VON Beltran Age/Sex: 48/F Location: [facility] [place] Status: Signed Intake Vital Signs 09/28/23 00:58 [...] out to Dr. Galindo about this. [facility] Medical History Vitamin deficiency Gallstones Carpal tunnel [...] painful urination, (more content not included)... Normal [facility] XR Knee - left 4 Viewson IMPRESSION: No acute radiographic abnormalities seen in the left knee. Cover Inspector: [facility] Transcribe Date/Time: Jan 16 2023 11:07A Dictated by : DAVID MEZA MD This examination was interpreted and the report reviewed and electronically signed by: DAVID MEZA MD on Jan 16 2023 11:09AM [facility] DIVISION OF RADIOLOGY * * *Final [...] radiographic abnormalities seen in the left knee. Cover Inspector: [facility] Transcribe Date/Time: Jan 16 2023 11:07A Dictated by : DAVID MEZA MD This examination was interpreted and the report reviewed and electronically signed by: DAVID MEZA MD on Jan 16 2023 11:09AM [facility] Radiology Study observation (narrative) [facility] XR Knee - left 4 ViewsOrdere d By: Ccf Provider on 01-16-2023 [facility] XR Finger - right AP and Lat eral and obliqueon 01-29-2021 IMPRESSION: Findings are suggestive of degenerative changes in the first digit. Cover Inspector: [facility] Transcribe Date/Time: Jan 29 2021 11:43A Dictated by : DAVID MEZA MD This examination was interpreted and the report reviewed and electronically signed by: DAVID MEZA MD on Jan 29 2021 11:47AM [facility] DIVISION OF RADIOLOGY * * *Final [...] the metacarpophalangeal joint. DIVISION OF RADIOLOGY Provider, [facility] Seymour cruz [place] - 01/29/2021 * * *Final Report* * [...] of degenerative changes in the first digit. Cover Inspector: [facility] Transcribe Date/Time: Jan 29 2021 11:43A Dictated by : DAVID MEZA MD This examination was interpreted and the report reviewed and electronically signed by: DAVID MEZA MD on Jan 29 2021 11:47AM [facility] Radiology Study observation (narrative) [facility] XR Finger - right AP and Lat eral and obliqueOrdered By: Ccf Provider on 01-29-2021 [facility] Vital Signs Date Time Vital Sign Value Performing Clinician Nilda balderas 10-04-2024 09:03-0400 Body height 160.[address] Savita Ahn MD Work Phone: [facility] 10-04-2024 09:03-0400 Body mass index (BMI) [Ratio] 39.4 kg/m2 Dr. Savita Ahn MD Work Phone: [facility] 10-04-2024 09:03-0400 Body temperature 96.5 [degF] Dr. Savita Ahn MD Work Phone: [facility] 10-04-2024 09:03-0400 Body weight 101.[address] Savita Ahn MD Work Phone: [facility] 10-04-2024 09:03-0400 Diastolic blood pressure 72 mm[Hg] Dr. Savita Ahn MD Work Phone: [facility] 10-04-2024 09:03-0400 Heart rate 79 /min Dr. Savita Ahn MD Work Phone: [facility] 10-04-2024 09:03-0400 Respiratory rate 16 /min Dr. Savita Ahn MD Work Phone: [facility] 10-04-2024 09:03-0400 SaO2% (BldA) [Mass fraction] 96 % Dr. Savita Ahn MD Work Phone: [facility] 10-04-2024 09:03-0400 Systolic blood pressure 126 mm[Hg] Dr. Savita Ahn MD Work Phone: [facility] 08-12-2024 14:29-0400 Diastolic blood pressure 54 mm[Hg] Alexx Mace DO Work Phone: [facility] 08-12-2024 14:29-0400 Heart rate 80 /min Alexx Mace DO Work Phone: [facility] 08-12-2024 14:29-0400 Systolic blood pressure 132 mm[Hg] Alexx Mace DO Work Phone: [facility] 07-16-2024 05:48-0400 Body temperature 98.1 [degF] Dr. Savita Ahn MD Work Phone: [facility] 07-16-2024 05:48-0400 Diastolic blood pressure 76 mm[Hg] Dr. Savita Ahn MD Work Phone: [facility] 07-16-2024 05:48-0400 Heart rate 72 /min Dr. Savita Ahn MD Work Phone: [facility] 07-16-2024 05:48-0400 Respiratory rate 12 /min Dr. Savita Ahn MD Work Phone: [facility] 07-16-2024 05:48-0400 SaO2% (BldA) [Mass fraction] 99 % Dr. Savita Ahn MD Work Phone: [facility] 07-16-2024 05:48-0400 Systolic blood pressure 139 mm[Hg] Dr. Savita Ahn MD Work Phone: [facility] 07-16-2024 03:02-0400 Body height 160.[address] Savita Ahn MD Work Phone: [facility] 07-16-2024 03:02-0400 Body mass index (BMI) [Ratio] 39.4 kg/m2 Dr. Savita Ahn MD Work Phone: [facility] 07-16-2024 03:02-0400 Body weight 101.[address] Savita Ahn MD Work Phone: [facility] 04-26-2024 07:59-0500 Body mass index (BMI) [Ratio] 39 kg/m2 Dr. Savita Ahn MD Work Phone: [facility] 04-26-2024 07:59-0500 Body temperature 96.8 [degF] Dr. Savita Ahn MD Work Phone: [facility] 04-26-2024 07:59-0500 Body weight 99.[address] Savita Ahn MD Work Phone: [facility] 04-26-2024 07:59-0500 Diastolic blood pressure 78 mm[Hg] Dr. Savita Ahn MD Work Phone: [facility] 04-26-2024 07:59-0500 Heart rate 87 /min Dr. Savita Ahn MD Work Phone: [facility] 04-26-2024 07:59-0500 Respiratory rate 16 /min Dr. Savita Ahn MD Work Phone: [facility] 04-26-2024 07:59-0500 SaO2% (BldA) [Mass fraction] 97 % Dr. Savita Ahn MD Work Phone: [facility] 04-26-2024 07:59-0500 Systolic blood pressure 134 mm[Hg] Dr. Savita Ahn MD Work Phone: [facility] 12-01-2023 21:13-0400 Diastolic Blood Pressure Non-Invasive 63 mm[Hg] CEE SIMONT [facility] 12-01-2023 21:13-0400 Heart rate 80 /min CEE SIMONT DO [facility] 12-01-2023 21:13-0400 Respiratory rate 16 /min CEE SIMONT DO [facility] 12-01-2023 21:13-0400 Systolic Blood Pressure Non-Invasive 130 mm[Hg] CEE SIMONT DO [facility] 12-01-2023 19:29-0400 Blood Pressure Location CEE SIMONT DO [facility] 12-01-2023 19:29-0400 Blood Pressure Method CEE SIMONT DO [facility] 12-01-2023 19:29-0400 Body height 160 cm CEE SIMONT DO [facility] 12-01-2023 19:29-0400 Body temperature 97.34 [degF] CEE SIMONT DO [facility] 12-01-2023 19:29-0400 Body weight 90.9 kg CEE SIMONT DO [facility] 12-01-2023 19:29-0400 Diastolic Blood Pressure Non-Invasive 81 mm[Hg] CEE SIMONT DO [facility] 12-01-2023 19:29-0400 Heart rate 89 /min CEE SIMONT DO [facility] 12-01-2023 19:29-0400 Respiratory rate 18 /min CEE HUGGINS DO [facility] 12-01-2023 19:29-0400 Systolic Blood Pressure Non-Invasive 145 mm[Hg] CEE SIMONT DO [facility] 05-19-2022 13:06-0400 Body temperature 98.01 [degF] Tasha Bogner PA-C Work Phone: [facility] 05-19-2022 13:06-0400 Body weight 91.63 kg Tasha Bogner PA-C Work Phone: [facility] 05-19-2022 13:06-0400 Diastolic blood pressure 76 mm[Hg] Tasha Bogner PA-C Work Phone: [facility] 05-19-2022 13:06-0400 Heart rate 80 /min Tasha Bogner PA-C Work Phone: [facility] 05-19-2022 13:06-0400 Respiratory rate 18 /min Tasha Bogner PA-C Work Phone: [facility] 05-19-2022 13:06-0400 SaO2% (BldA) [Mass fraction] 99 % Tasha Bogner PA-C Work Phone: [facility] 05-19-2022 13:06-0400 Systolic blood pressure 110 mm[Hg] Tasha Bogner PA-C Work Phone: [facility] 11-27-2021 11:25-0400 Body temperature 96.91 [degF] Latrice Lutz APRN.CNP Work Phone: [facility] 11-27-2021 11:25-0400 Body weight 91.81 kg Latrice Lutz APRN.TOBACCO SIZER Work Phone: [facility] 11-27-2021 11:25-0400 Diastolic blood pressure 80 mm[Hg] Latrice Lutz APRN.TOBACCO SIZER Work Phone: [facility] 11-27-2021 11:25-0400 Heart rate 74 /min Latrice Lutz APRN.TOBACCO SIZER Work Phone: [facility] 11-27-2021 11:25-0400 Respiratory rate 21 /min Latrice Lutz APRN.TOBACCO SIZER Work Phone: [facility] 11-27-2021 11:25-0400 SaO2% (BldA) [Mass fraction] 99 % Latrice Lutz APRN.TOBACCO SIZER Work Phone: [facility] 11-27-2021 11:25-0400 Systolic blood pressure 140 mm[Hg] Latrice Lutz APRN.TOBACCO SIZER Work Phone: [facility] Encounters Encounter Date Encounter Type Care Provider Facility Start: 10-05-2024 ambulatory Savita Ahn Facility :[facility] Start: 10-04-2024 End: 10-04-[address] Savita Ahn MD -[facility] Work Phone: Start: 10-04-2024 End: 10-04-[address] Savita Ahn MD Work Phone: -[facility] Start: 08-26-2024 End: 08-26-2024 Telephone encounter Alexx Mace DO Work Phone: Neurology Comment on above: Results Start: 08-24-2024 End: 08-24-2024 Telephone encounter Alexx Mace DO Work Phone: Neurology Start: 08-15-2024 End: 08-16-2024 Telephone encounter Alexx Mace DO Work Phone: Neurology Comment on above: Medication Problem Start: 08-12-2024 End: 08-12-2024 ambulatory ALEXX MACE Facility:[facility] Start: 08-12-2024 End: 08-12-2024 Patient encounter procedure Alexx Mace DO Work Phone: Neurology Comment on above: Paresthesia (Primary Dx); Meningioma (HCC) Start: 08-12-2024 End: 08-12-2024 ambulatory ALEXX MACE Facility:[facility] Start: 07-16-2024 End: 07-16-2024 Emergency department patient visit Dr. Savita Ahn MD Work Phone: -Emergency Department Work Phone: Start: 06-07-2024 End: 06-07-2024 ambulatory SAVITA AHN MD Facility:[facility] Start: 06-03-2024 End: 06-03-[address] Savita Ahn MD Work Phone: [facility] Work Phone: Start: 06-03-2024 End: 06-03-[address] Savita Ahn MD -Physical Therapy Work Phone: Start: 06-03-[address] Savita ho MD -Physical Therapy Work Phone: Start: 04-26-2024 End: 04-26-[address] Savita Ahn MD -[facility] Work Phone: Start: 04-26-2024 End: 04-26-2024 ambulatory Savita Ahn Facility[place] Start: 04-25-2024 End: 04-25-[address] Savita Ahn MD -Laboratory, [place] Start: 04-25-2024 End: 04-25-2024 ambulatory Savita Ahn Facility:[facility] Start: 02-10-2024 End: 02-10-2024 ambulatory SAVITA AHN MD Facility:[facility] Start: 01-25-2024 End: 01-25-2024 Patient encounter procedure KARY GALINDO MD [facility] Start: 01-06-2024 ambulatory Sangeetha Phoenix Facility:[facility] Start: 01-06-2024 End: 01-06-2024 ambulatory Savita [place] Facility:[facility] Start: 01-01-2024 End: 01-01-2024 Emergency department patient visit Thanh Mcdonald Facility:[facility] Start: 12-28-2023 End: 12-28-2023 ambulatory KARY GALINDO MD Facility:[facility] Start: 12-28-2023 End: 12-28-2023 Patient encounter procedure KARY GALINDO MD [facility] Start: 12-25-2023 End: 12-25-2023 ambulatory KARY GALINDO MD Facility:[facility] Start: 12-25-2023 End: 12-25-2023 Patient encounter procedure KARY GALINDO MD [facility] Start: 12-23-2023 ambulatory Humberto Soraya Munguia lity:[facility] Start: 12-16-2023 End: 12-16-2023 ambulatory Savita Jimy Facility:[facility] Start: 12-04-2023 End: 12-04-2023 Emergency department patient visit Thanh Mcdonald Facility:[facility] Start: 12-01-2023 End: 12-01-2023 Emergency department patient visit CEE HUGGINS DO [facility] Start: 11-26-2023 End: 11-26-2023 Emergency department patient visit Nelson Ba Facility:[facility] Start: 11-10-2023 End: 11-11-2023 Emergency department patient visit Andrea Mcmullen Facility:[facility] Start: 10-23-2023 End: 10-23-2023 ambulatory Mayco LONGORIA Facility:[facility] Start: 08-13-2023 Telephone encounter No Pcp AMANUEL gonsales Comment on above: Referral faxed to in urology Start: 08-07-[address] Savita Ahn MD Work Phone: [facility] Start: 08-04-2023 End: 08-04-2023 Patient encounter procedure Billy LONGORIA Work Phone: [facility] Comment on above: Dizziness (Primary D x) Start: 02-11-2023 ambulatory No Pcp [facility] [place] Start: 02-06-2023 ambulatory No Pcp [facility] Start: 01-16-2023 End: 01-16-2023 Subsequent hospital visit by physician Xr [facility] Work Phone: Radiology Comment on above: Acute pain of left k nee [M25.562] Start: 05-19-2022 End: 05-19-2022 Office outpatient visit 25 minutes Tasha Souza PA-C Work Phone: [facility] Comment on above: Acute frontal sinusi tis, recurrence not specified (Primary Dx) Start: 11-27-2021 End: 11-27-2021 Patient encounter procedure Latrice Lutz APRN.TOBACCO SIZER Work Phone: [facility] Comment on above: Acute otitis media, right (Primary Dx) Start: 09-04-2021 ambulatory Alexx Segura MD Work Phone: Internal Medicine [facility] Start: 01-29-2021 End: 01-29-2021 Subsequent hospital visit by physician Xr [facility] Work Phone: Radiology Comment on above: Pain of right thumb [M79.644] Procedures Date Procedure Procedure Detail Performing Clinician Start: 07-16-2024 Plain chest X-ray Dr. Ata Ahn MD Work Phone: Start: 07-16-[address] Savita Ahn MD Work Phone: Start: 01-16-2023 Radiologic exam knee complete 4/more views Deepti Hernandez APRN.TOBACCO SIZER Work Phone: Start: 01-29-2021 Radex fingr minimum 2 views Danielle Car UNIT TENDER.TOBACCO SIZER Work Phone: Start: 10-07-2019 Lipid 1996 panel - S roxanne or Plasma No Pcp UNIT TENDER Start: 11-01-2018 Adult depression screening assessment Alexx Segura MD Work Phone: Start: 01-28-2012 Mammography Slick Segura MD Work Phone: Plan of Treatment Date Care Activity Detail Author Start: 12-30-2028 Urine microalbumin profile [facility] Start: 04-07-2025 End: 04-07-2025 Patient encounter procedure 04/07/2025 2:00 PM EST Office Visit Neurology [address], [place] [id number] [place] [address] [place], [place] [id number] Return in about 6 months (around 02/11/2025). Neurology Comment on above: Return in about 6 mo nths (around 02/11/2025). Start: 11-07-2024 Influenza vaccination Influenz a Vaccine (Season Ended) [facility] Start: 10-06-2024 Lipid 1996 panel - S roxanne or Plasma Lipid Screening [facility] Start: 10-06-2024 Lipid panel Lipid Screening [facility] Start: 10-06-2024 LIPID SCREEN LIPID SCREEN [facility] Start: 07-16-2024 [facility] Start: 07-16-2024 [facility] Start: 04-26-2024 Patient referral [facility] Work Phone: Start: 11-08-2023 Covid-19 Vaccine ( season) Covid-19 Vaccine ( season) [facility] Start: 11-08-2023 Covid-19 Vaccine ( season) Covid-19 Vaccine ( season) [facility] Start: 11-08-2023 Influenza vaccination C [facility] Start: 06-01-2023 Screening for malign ant neoplasm of lung Lung Cancer Screening [facility] Start: 06-01-2023 Shingrix Vaccine (1 of 2) Frank grix Vaccine (1 of 2) [facility] Start: 03-09-2023 Behavioral Health Screening Behavioral Health Screening [facility] Start: 11-07-2022 Covid-19 Vaccine ( season) Covid-19 Vaccine ( season) [facility] Start: 11-07-2022 Influenza vaccination Influenza Vacc ine (#1) [facility] Start: 03-09-2022 DEPRESSION ASSESSMENT DEPRESSION ASS ESSMENT [facility] Start: 11-07-2021 Influenza vaccination C [facility] Start: 11-05-2021 DIABETES SCREEN DIABETES SCREEN [facility] Start: 11-05-2021 Diabetes Screening Diabetes Screenin g [facility] Start: 10-06-2020 ANNUAL PCP TEAM CUSTOMER TECHNICAL SERVICES MANAGER AMANDA DISEASE VISIT ANNUAL PCP TEAM CHRONIC DISEASE VISIT [facility] Start: 12-31-2019 PNEUMOCOCCAL (2 - PCV) PNEUMOCOCCAL (2 - PCV) [facility] Start: 12-31-2019 Pneumococcal vaccination [facility] Start: 12-31-2019 Pneumococcal Vaccine : 50+ (2 of 2 - PCV) Pneumococcal Vaccine: 50+ (2 of 2 - PCV) [facility] Start: 11-02-2019 Adult depression screening assessment DEPRESSION SCREENING [facility] Start: 2018 COLOGUARD (FIT-DNA) COLOGUARD (FIT-D NA) [facility] Start: 2018 Colonoscopy COLONOSCOPY [facility] Start: 2018 COLORECTAL CANCER SCREENING COLORECTAL CANCER SCREENING [facility] Start: [address] COLONOGRAPHY [facility] Start: 2018 FECAL OCCULT BLOOD FECAL OCCULT BLOO D [facility] Start: 2018 Screening for malign ant neoplasm of colon [facility] Start: 2018 SIGMOIDOSCOPY SIGMOIDOSCOPY [facility] Start: 01-27-2017 HPV TESTING HPV TESTING [facility] Start: 01-27-2017 PAP TESTING PAP TESTING [facility] Start: 01-27-2017 Screening for malign ant neoplasm of cervix [facility] Start: 2013 Mammography [facility] Start: 2013 Screening for malign ant neoplasm of breast Mammogram Screening [facility] Start: 1992 Hepatitis B Vaccine (1 of 3 - 19+ 3-dose series) Hepatitis B Vaccine (1 of 3 - 19+ 3-dose series) [facility] Start: 06-01-1991 Anxiety Screening Anxiety Screening [facility] Start: 06-01-1991 Depression Screening Depression Scre ening [facility] Start: 06-01-1991 HEPATITIS C SCREENING HEPATITIS C SC [facility] Start: 06-01-1991 Hepatitis C screening Hepatitis C [facility] Start: 06-01-1991 HIV SCREENING HIV SCREENING [facility] Start: 06-01-1991 HIV screening HIV Screening [facility] Start: 1978 COVID-19 VACCINE (#1) COVID-19 VACCI NE (#1) [facility] Start: 1975 COVID-19 VACCINE (#1) COVID-19 VACCI NE (#1) [facility] Start: 1975 HEPATITIS B (1 of 3 - 3-dose series) HEPATITIS B (1 of 3 - 3-dose series) [facility] Start: 1975 Hepatitis B Vaccine (1 of 3 - 3-dose series) Hepatitis B Vaccine (1 of 3 - 3-dose series) [facility] End: 08-12-2025 EEG MONITORING ADULT EMU (24 HOUR WITH VIDEO) EEG MONITORING ADULT EMU (24 HOUR WITH VIDEO) NEUROLOGY Routine Paresthesia 1 Occurrences starting 08/12/2024 until 08/12/2025 [facility] Work Phone: Comment on above: 1 Occurrences starti ng 08/12/2024 until 08/12/2025 Patient Education ED Chest Pain, Noncardiac ED Chest Pain, Uncertain Cause [facility] Work Phone: Patient referral [facility] Work Phone: Polysomnography [facility] End: 10-04-2022 Screening mammography bi 2-view breast inc cad KIA SCREENING Radiology Routine Encounter for screening mammogram for breast cancer 1 Occurrences starting 09/04/2021 until 10/04/2022 [facility] Work Phone: Comment on above: 1 Occurrences starti ng 09/04/2021 until 10/04/2022 Thyroid stimulating hormone measurement [facility] Tobacco use cessatio n education [facility] Immunizations Immunization Date Immunization Notes Care Provider Fa cility 12-30-2018 pneumococcal polysaccharide vaccine, 23 valent Alexx Segura MD Work Phone: [facility] 12-30-2018 tetanus toxoid, redu omar diphtheria toxoid, and acellular pertussis vaccine, adsorbed Alexx Segura MD Work Phone: [facility] 08-05-2013 tetanus toxoid, redu omar diphtheria toxoid, and acellular pertussis vaccine, adsorbed Alexx Segura MD Work Phone: [facility] Payers Date Payer Category Payer Medicaid [employer] [id number] 2023 Self-pay 2023 Unknown [id number] 2023 Unknown [id number] 2018 Unknown MMO MMO [employer] [id number] 2018-Present [phone] [address] [place] [address] PPO [id number] 2018 Unknown [id number]. [id number] 1975 Unknown [id number] 1975 Unknown [id number] [id number] 1975 Unknown [id number] [id number] 1975 Unknown [id number] 2.840.1.919598.3.579.2.627 1975 Unknown [id number] [id number]7 Unknown [id number] 2.16840.1.829460.3.579.2.462 Unknown [id number] 2.840.1.182266.3.579.2.462 Unknown [id number] 2.840.1.208410.3.579.2.462 Unknown [id number] 2.840.1.326289.3.579.2.462 Unknown [id number] 2.840.1.070819.3.579.2.462 Unknown [id number] 2.840.1.112317.3.579.2.462 Unknown [id number] 2.840.1.349230.3.579.2.462 Unknown [id number] 2.840.1.117383.3.579.2.462 Unknown [id number] 2.840.1.046356.3.579.2.462 Unknown [id number] 2.840.1.510819.3.579.2.462 Unknown [id number] 2.840.1.709835.3.579.2.462 Unknown [id number] 2.840.1.101470.3.579.2.462 Unknown [id number] 2.840.1.795908.3.579.2.462 Unknown [id number] 2.840.1.271341.3.579.2.462 Unknown [id number] 2.840.1.430764.3.579.2.462 Social History Date Type Detail Facility Start: 11-27-2021 End: 10-04-2024 Tobacco smoking status NHIS Smokes tobacco daily [facility] History of tobacco use Cigarette Smoker C [facility] Start: 02-18-2021 End: 08-12-2024 Alcohol intake Current drinker of alcohol (finding) [facility] Start: 02-18-2021 History SDOH Alcohol Comment rarely, once a year [facility] Start: 1975 Sex Assigned At Not on file C [facility] Start: 11-27-2021 End: 08-12-2024 Cigarettes smoked current (pack per day) - Reported 1 [facility] Start: 12-30-2018 End: 11-27-2021 Tobacco use and exposure Smokeless tobacco non-user [facility] Start: 12-30-2020 End: 11-27-2021 Exposure to SARS-CoV-2 (event) Not sure [facility] Work Phone: Start: 01-16-2023 End: 08-12-2024 Tobacco use panel [facility] Adult Depression Screening Assessment 0 [facility] Start: 12-30-2018 [facility] Start: 1975 Sex Assigned At Female [facility] Functional Status Date Assessment Result Facility 12-01-2023 Functional Status Independent [facility] Mental Status Date Assessment Result Facility 07-16-2024 Cognitive function Voice/Name [facility] Work Phone: 12-01-2023 Mental Status Orientation Oriented x 4 [facility] Clinical Notes 01-29-2021 to 09-06-2024 Note Date [...] reflux disease noneactive October 04, 2024 8:53am [facility] Work Phone: [phone] Telephone encounter Note* Telephone Encounter - Alexx Mace DO - 08/26/2024 12:43 PM EDT Blood tests from 08/12/2024 including DARYL and immunofixation were both negative/normal. [facility]06-20-2025 Miscellaneous Notes* Telephone Encounter - Alexx Mace [...] calling: self Call patient at: at home [phone] (home) [phone] (work) [phone] (cell) Was an appointment scheduled: No Closing statement: Results or non-symptom based questions: Thank you for calling [facility], your call will be returned within the next business day. Isidra Pollard documented in this encounterOhiohealth Marion General Hospital06-20-2025 Telephone encounter Note * Telephone Encounter - Isidra Johnson - 08/26/2024 12:30 PM EDT Patient doesn't have MyChart and is requesting a call back with there most recent lab results. Patient has been identified by name and birthdate. Duration of symptoms: N/A Person calling: self Call patient at: at home [phone] (home) [phone] (work) [phone] (cell) Was an appointment scheduled: No Closing statement: Results or non-symptom based questions: Thank you for calling [facility], your call will be returned within the next business day. Isidra Pollard [facility]06-18-2025 Telephone encounter Note* Telephone Encounter - Hannah Patterson LPN - 08/24/2024 7:27 PM EDT 08/24/2024 Records received from [facility] for review by he has reviews and initialed copies. The records have been sent to chart scanning. Hannah Patterson LPN [facility]06-18-2025 Miscellaneous Notes* Telephone Encounter - Hannah Patterson LPN - 08/24/2024 7:27 PM EDT 08/24/2024 Records received from [facility] for review by he has reviews and initialed copies. The records have been sent to chart scanning. Hannah Patterson LPN documented in this encounterOhiohealth [facility] General Hospital06-09-2025 Telephone encounter Note * Telephone Encounter - Alexx Mace DO - 08/15/2024 9:22 PM EDT Prescription has been sent as requested. Note is still in progress. [facility]06-09-2025 Miscellaneous Notes* Telephone Encounter - Alexx Mace [...] sent to pharmacy. Please send to [facility] in [place]. Patient has been identified by name and birthdate. Duration of symptoms: N/A Person calling: self Call patient at: on cell [phone] (home) (work) [phone] (cell) Was an appointment scheduled: No Closing statement: Results or non-symptom based questions: Thank you for calling [facility], your call will be returned within the next business day. Rose Best documented in this encounterOhiohealth Marion General Hospital06-09-2025 Telephone encounter Note * Telephone Encounter - Rose Best - 08/15/2024 3:00 PM EDT Faustina is calling Alexx Mace DO today with concern regarding increased gabapentin Rx. Pt states at her appt on Thursday Dr. Mace recommended she increase gabapentin from 400mg to 600mg,however prescription was not sent to pharmacy. Please send to [facility] in [place]. Patient has been identified by name and birthdate. Duration of symptoms: N/A Person calling: self Call patient at: on cell [phone] (home) (work) [phone] (cell) Was an appointment scheduled: No Closing statement: Results or non-symptom based questions: Thank you for calling [facility], your call will be returned within the next business day. Rose Best [facility]06-06-2025 Instructions* Patient Instructions* Alexx Mace DO - [...] at the current one. documented in this encounterOhiohealth Marion General Hospital06-06-2025 NoteHNO ID: [id number] Author: ALEXX MACE DO Service: ? Author Type: Physician Type: Progress Notes Filed: 08/21/2024 17:27 Note Text: [facility] [place] New Patient Consultation August 12, 2024 ++ [...] chest pain, +palpitations, -skipp (more content not included)...[facility]06-06-2025 History of Present illness Narrative* Alexx Mace, DO - 08/12/2024 12:52 PM EDT [facility] [place] New Patient Consultation August 12, 2024 ++ [...] Sincerely, Alexx Mace D.O. documented in this encounterOhiohealth Marion General Hospital05-10-2025 Discharge summary [facility] Medical Records Department [address] [place] [address] Emergency Department Summary 07/16/24 MR#: [id number] Acct: [id number] Name: FAUSTINA GLASGOW Rep #:[id number] : 1975 49 From: Adal Dempsey MD [...] last few days. She is a smoker. [facility] Medical History Seizure disorder Meningioma Meningioma Vitamin [...] % (Auto) 56.2 Lymph % (Auto) 37.9 [place] % (Auto) 3.6 Eos % (Auto) 1.3 [...] No evidence of acute disease. Reading Location: [facility] Discharge Plan Triage Chief Complaint: Palpitations [...] with new or worsening symptoms. Print Language: Ghanaian Disposition Disposition: Home, Self Care What to do if you have Problems For any increased pain, shortness of breath, bleeding, nausea or vomiting, chestpain, or any unexpected problems, contact your Primary Care Provider. Call [facility] ([phone]) or report tothe closest Emergency Room. Call 911 if necessary. 07/16/24 0549 Cosigner Signature (if applicable): CC: Dr. Savita Ahn MD ~ Signed [facility]05-10-2025 Radiology Diagnostic study note [facility] Imaging Services [address] [place], [place] [address] Chest 1 View (Portable) MR#: [id number] Acct: [id number] Name: FAUSTINA GLASGOW Rep #: [id number] : 1975 F 49 From: Gm Obrien MD PCP: Dr. Savita Ahn MD Status: PRE ER Study:Chest 1 View (Portable) Date of Exam: 07/16/24 Exam# [id number] Ordering Dr: Adal Dempsey MD PROCEDURE: CHEST 1 VIEW (PORTABLE) 07/16/2024 REASON FOR EXAM: CHEST PAIN TECHNIQUE: Frontal view of the chest. COMPARISON: 01/01/2024 FINDINGS: The lungs appear clear. Pulmonary vascularity appears within limits. No pleural effusion. Cardiac and mediastinal contours appear within limits. The visualized osseous structures appear within limits. RAD/Chest 1 View (Portable) IMPRESSION: No evidence of acute disease. Reading Location: [id number] CC: Dr. Adal Dempsey MD; Dr. Savita Ahn MD ~ Cover Inspector: Signed [facility]05-08-2025 Discharge summary Author Fredo Sepulveda [facility] Note Date/Time July 14, 2024 4:04pm [facility] Physical Therapy [facility] [address] [place] [address] / REHABILITATION SERVICES DISCHARGE SUMMARY MR#: [id number] Acct: [id number] Name: FAUSTINA GLASGOW Rep #: [id number] : 1975 49 From: Fredo Sepulveda DPT, OCS, CSCS Referring Dr.: Dr. Savita Ahn MD Status: REG RCR Insurance: [facility] [employer] Discharge Summary D/C summary: [...] please feel free to call me at [phone]. Thank you for the referral of thispatient. Sincerely, Fredo Sepulveda DPT, OCS, CSCS Balance/Gait/Functional tests Balance/Special Test Scores Oswestry Low Back Score: 17 Improvement % Improvement: 3 <Electronically signed by Fredo Sepulveda DPT, CARMEL, CSCS> 07/14/24 1604 CC: Dr. Savita Ahn MD ~ EBG Signed [facility] Work Phone: 1(489) 907-834705-08-2025 Discharge summary [facility] Physical Therapy [facility] [address] [place] [address]. [address] [place] [address] / REHABILITATION SERVICES DISCHARGE SUMMARY MR#: [id number] Acct: [id number] Name: FAUSTINA GLASGOW Rep #: [id number] : 1975 49 From: Fredo Derick DPT, OCS, CSCS Referring Dr.: Dr. Savita hAn MD Status: REG RCR Insurance: [facility] [employer] Discharge Summary D/C summary: [...] leg pain worse. [facility] HEP going well. [...] please feel free to call me at [phone]. Thank you for the referral of thispatient. Sincerely, Fredo Sepulveda, DPT, OCS, CSCS Balance/Gait/Functional tests Balance/Special Test Scores Oswestry Low Back Score: 17 Improvement % Improvement: 3 07/14/24 1604 CC: Dr. Savita Ahn MD ~ EBG Signed [facility]02-18-2025 Evaluation note* Diagnosis Onset Date Resolution Status [...] reflux disease noneactive April 26, 025 7:56am [facility] Work Phone: 1([phone]) 376-750110-18-2024 Note ORIGINAL EXAMINATION: MRI OF THE THORACIC [...] Sign Date: 12/25/2023 4:23:33 PM Ordering Provider: [facility]10-18-2024 Note ORIGINAL EXAMINATION: MRI OF THE CERVICAL [...] Sign Date: 12/25/2023 4:25:43 PM Ordering Provider: [facility]09-24-2024 Hospital Discharge instructions Patient Education 12/01/2023 21:04:38 [...] face You have trouble talking or seeing 9320-[address] [employer] [place] [address]. All rights reserved. This information is not intended as a substitute for professional medical care. Always follow yourhealthcare professional's instructions. Follow Up Care 12/01/2023 19:22:21 With:SAVITA AHN MD Address: [facility] [employer] [address] [place] [address]- When:2-4 days With:ANTONETTE DELGADO DO Address: [address] [place] [address] [place] [phone] When:2-4 days [facility] 09-24-2024 Note Discharge Instructions Thank you for allowing [facility] to assist you with your healthcare needs. The following is importantdischarge information regarding your hospital visit. What to Do Next Instructions from Your Care Team No qualifying data available. Post Acute Orders No qualifying data available. You Need to Schedule the Following Appointments Follow Up with SAVITA AHN MD When:Within 2-4 days Where:[facility] [address] [place] [address]- Follow Up with ANTONETTE DELGADO DO When:Within 2-4 days [facility] [phone] Allergies NKA Medications Please ask your primary [...] Acetaminophen is a pain reliever and fever bariatric physician. Butalbital is in a group of drugs [...] may report side effects to FDA at [phone]-WTU-[phone]. What other drugs will affect acetaminophen, butalbital, [...] acetaminophen, butalbital, and caffeine, including prescription and svju-iju-fguvfco medicines, vitamins, and herbal products. Tell your [...] to ensure that the information provided by [employer]. ('[employer]') is accurate, up-to-date, and complete, but no guarantee is made to that effect. Drug information contained herein may be time sensitive. [employer] information has been compiled for use by healthcare practitioners and consumers in the [place] and therefore [employer] does not warrant that uses outside of the [place] are appropriate, unless specifically indicated otherwise. [employer] drug information does not endorse drugs, diagnose patients or recommend therapy. [employer] drug information isan informational resource designed to [...] effective or appropriate for any given patient. [employer] does not assume any responsibility for any aspect of healthcare administered with the aid of information [employer] provides. The information contained herein is not intended to cover all possible uses, directions, precautions, warnings, drug interactions, allergic reactions, or adverse effects. If you have questions about the drugs you are taking, check with your doctor, nurse or pharmacist. Copyright 4642-3218 [employer]. Version: 8.01. Revision Date: 03/29/2021. Education Materials [...] face You have trouble talking or seeing 5512-[address] [employer]. [address] [place] [address], [place] [address]. All rights reserved. This information is not intended as a substitute for professional medical care. Always follow yourhealthcare professional's instructions. Additional Information VACCINATE! IT SAVES LIVES! Members of the community who have not yet received the COVID-19 vaccine and would like to receive it can visit one of [facility] vaccine clinics. There are many vaccine clinic locations within the [facility]. For locations and available times, please visit www.gettheshot.coronavirus.[place].gov/. It is important to note that some COVID mobile vaccine clinics are held outdoors and may be canceled in rainy or stormy conditions. To learn more about pediatric vaccinations (ages 5-11), we invite you to visit the [facility] webpage. https://www.[facility].org/pages/8127-Gvadc-Azxfgmpazyo-Nibgnfemcs-Fngoi-Frn stions.htmlTo learn more about the COVID-19 vaccine, we invite you to visit the CDC website for a list of frequently asked questions. https://www.cdc.gov/coronavirus/2019-ncov/vaccines/faq.html [facility] [facility] Patient Portal Access Instructions: Stay connected with your healthcare team and access your personal medical information anytime with the [facility] [employer] Patient Portal. If you would like a full copy of your medical records please contact the [facility] Medical Records Department Thursday through Thursday between 8a.m. and 4:30p.m. Please follow the directions below to access the portal: 1.Access the email account you provided upon registration to the [facility].2.Look for an invitation email from [facility].3.Open the email and access the invitation link: Accept Invitation to [employer]4.Fill in the required oviedo to create your [...] you will allow to register on the [facility] [employer] Patient Portal for access to your information. You can also access the [facility] [employer] Patient Portal on the [employer]. Simply click on Health Records under [employer] and then click on the [facility] logo. HOW TO SAFELY DISPOSE OF PRESCRIPTION [...] Call your local pharmacy or go to http://[employer].Exablox/9K2Cy8k to find one close to you.3.Make use of household items: Use cat litter or old coffee grounds to dispose medications if other options arenot available. Mix your drugs with these household products, seal them in an airtight container andthrow it into the garbage. Call [facility]: [phone] to be sure your drugs can be [...] aware that I should contact my doctor. Patient/Visual Effects Artist Signature: Date/Time: Relationship to Patient: Witness Name/Signature: Date/Time: [facility]09-24-2024 NoteSinus rhythm Baseline wander in lead(s) V3 BORDERLINE ECG Electronic Signature: CATALINOTORSTENCEE Molina 12/01/2023 20:27:51[facility] 06-06-2024 Telephone encounter Note* Telephone Encounter - Pau Briggs LPN - 08/13/2023 10:38 AM EDT Referral received by fax in two parts on referral page, second contained office visit (patient was new to [place] [facility] for Emergency Room follow up) not seen prior. Phone call placed to [place] [facility] spoke to nurse advised of scheduling process (referral to Neurosurgery our office would need MRI testing results) none sent with original referral. [facility] will fax requested document then office will reach out to patient to initiate scheduling. Pau Briggs LPN [facility]06-06-2024 Miscellaneous Notes* Telephone Encounter - Pau Briggs LPN - 08/13/2023 10:38 AM EDT Referral received by fax in two parts on referral page, second contained office visit (patient was new to [place] for Emergency Room follow up) not seen prior. Phone call placed to [place] spoke to nurse advised of scheduling process (referral to Neurosurgery our office would need MRI testing results) none sent with original referral. [facility] will fax requested document then office will reach out to patient to initiate scheduling. Pau Briggs LPN * Telephone Encounter - Shane Lee RN - 08/13/2023 8:57 AM EDT [facility] phoned asking if neurology dept received a referral from them for this patient. They faxed one on 07-10-23 and 08-12-23. Verified correct fax number. Dx: neuralgia, benign neoplasm. They also faxed a referral to neuro surgeon. Asking office let them know if you received the referral. documented in this encounterOhiohealth [facility] Hospital06-06-2024 Telephone encounter Note * Telephone Encounter - Shane Lee RN - 08/13/2023 8:57 AM EDT [facility] phoned asking if neurology dept received a referral from them for this patient. They faxed one on 07-10-23 and 08-12-23. Verified correct fax number. Dx: neuralgia, benign neoplasm. They also faxed a referral to neuro surgeon. Asking office let them know if you received the referral. [facility]05-28-2024 History of Present illness Narrative* Billy Gomes [...] Did offer to schedule an appointment with [facility] PCP to establish care, but patient does not want to travel. She will keep her appointment with [facility] PCP Thursday and go to ER now for evaluation of her dizziness. documented in this encounterOhiohealth Marion General Hospital12-06-2023 History of Present illness Narrative* Ketty Goldman [...] 11, 2023 2:34 PM documented in this encounterOhiohealth Marion General Hospital12-01-2023 History of Present illness Narrative* Ketty Goldman [...] 06, 2023 12:33 PM documented in this encounterOhiohealth Marion General Hospital11-10-2023 History of Present illness Narrative* Lisy Fuentes [...] 16, 2023 10:55 AM documented in this encounterOhiohealth Marion General Hospital03-13-2023 History of Present illness Narrative* Tasha Souza [...] plan. Tasha Souza PA-C documented in this encounterOhiohealth Marion General Hospital09-21-2022 History of Present illness Narrative* Latrice Lutz APRN.[facility] - 11/27/2021 11:39 AM EDT CC: Patient [...] plan. Latrice Lutz APRN.CNP documented in this encounterOhiohealth Marion General Hospital11-23-2021 History of Present illness Narrative* Stanley Llanos [...] 29, 2021 11:21 AM documented in this encounterOhiohealth Marion General HospitalDischarge summary Author Adal Dempsey [facility] Note Date/Time July 16, 2024 5:49a m [facility] Medical Records Department [address] [place] [address] Emergency Department Summary 07/16/24 MR#: [id number] Acct: [id number] Name: FAUSTINA GLASGOW Rep #:[id number] : 1975 49 From: Adal Dempsey MD [...] last few days. She is a smoker. [facility] Medical History Seizure disorder Meningioma Meningioma Vitamin [...] % (Auto) 56.2 Lymph % (Auto) 37.9 [place] % (Auto) 3.6 Eos % (Auto) 1.3 [...] No evidence of acute disease. Reading Location: [facility] Discharge Plan Triage Chief Complaint: Palpitations [...] with new or worsening symptoms. Print Language: Ghanaian Disposition Disposition: Home, Self Care What to do if you have Problems For any increased pain, shortness of breath, bleeding, nausea or vomiting, chestpain, or any unexpected problems, contact your Primary Care Provider. Call [facility] ([phone]) or report to the closest Emergency Room. Call 911 if necessary. 07/16/24 0549 <Electronically signed by Adal Dempsey MD> Cosigner Signature (if applicable): CC: Dr. Savita Ahn MD ~ Signed [facility] Work Phone: Evaluation + Plan note No data available for this section [facility] Evaluation + Plan note Future Appointments Appointment Date:12/28/2023 02:00:00 PM Scheduled Provider: Location:[facility] Appointment Type:MRI Spine Lumbar w/ + w/o Contrast Future Scheduled Tests Radiology* MRI Spine Lumbar w/ + w/o Contrast 12/28/23 [facility] Evaluation note* Diagnosis Encounter for screening mammogram for breast cancer documented in this encounter [facility]* Diagnosis Acute otitis media, right- Primary Unspecified otitis media [facility] Acute frontal sinusitis, recurrence not specified- Primary documented [facility]* Diagnosis Dizziness- Primary Dizziness and giddiness [facility]* Diagnosis Acute pain of left knee [facility]* Diagnosis Pain of right thumb Pain in limb documented [facility]* Diagnosis Paresthesia- Primary Disturbance of skin sensation Meningioma (HCC) Benign neoplasm of cerebral meninges [facility] Dis[facility] instructions No data available for this section [facility] Hospital Discharge instructions Additional Instructions Follow-up with your primary care provider. Follow-up with your neuromuscular physician as well. Return with new or worsening symptoms.[facility] Work Phone: Progress note No data available for this section [facility] Reason for referral (narrative)* Diagnostic Procedure Only (Routine) - Pending Review Specialty Diagnoses / Procedures Referred By Contac t Referred To Contact [facility] Diagnoses Encounter for screening mammogram for breast cancer Procedures KIA SCREENING SCREENING MAMMOGRAPHY BI 2-VIEW BREAST INC CAD Alexx Segura MD [address] [place] [address] [facility] [address] [place] [address] Referral ID Status Reason Start Date Expiration Date Visits Requested Visits Authorized [id number] Pending Review Auto-Generat ed Referral 09/04/2021 10/04/2022 1 1 [facility] for referral (narrative)* Diagnostic Procedure Only (Urgent) - Closed Specialty Diagnoses / Procedures [facility]erred To Contact [facility] Diagnoses Acute pain of left knee Procedures XR KNEE GENERAL 4V AP BOTH/PA BOTH/LAT/MERC LEFT RADIOLOGIC EXAM KNEE COMPLETE 4/MORE VIEWS Deepti Hernandez, UNIT TENDER.TOBACCO SIZER [address] [id number] [place] [address] Referral ID Status Reason Start Date Expiration Date V isits Requested Visits Authorized [id number] Closed Auto-Generate d Referral 01/16/2023 02/15/2024 1 1 [facility] for referral (narrative)* Diagnostic Procedure Only (Urgent) - Closed Specialty Diagnoses / Procedures [facility] Referred To Contact XR IMAGING Diagnoses Pain of right thumb Procedures XR DIGIT GENERAL 3V FRONTAL/LAT/OBL RIGHT X-RAY EXAM OF FINGER(S) Danielle Car APRN.TOBACCO SIZER [address] [place] [address] [place] [address] Referral ID Status Reason Start Date Expiration Date V isits Requested Visits Authorized [id number] Closed Auto-Generate d Referral 01/29/2021 02/28/2022 1 1 [facility])No reason for referral information [facility]Sch[facility] Work Phone: Reason for visit Narrative* Diagnostic Procedure Only (Urgent) - Closed Specialty Diagnoses / Procedures Referred By Contac t Referred To Contact XR IMAGING Diagnoses Acute pain of left knee Procedures XR KNEE GENERAL 4V AP BOTH/PA BOTH/LAT/MERC LEFT RADIOLOGIC EXAM KNEE COMPLETE 4/MORE VIEWS Deepti Hernandez, UNIT TENDER.TOBAC[employer] SIZER [address] [place] [address] [place] [address] Referral ID Status Reason Start Date Expiration Date V isits Requested Visits Authorized [id number] Closed Auto-Generate d Referral 01/16/2023 02/15/2024 1 1 [facility] Diagnostic Procedure Only (Urgent) - Closed Specialty Diagnoses / Procedures Referred By Contac t Referred To Contact XR IMAGING Diagnoses Pain of right thumb Procedures XR DIGIT GENERAL 3V FRONTAL/LAT/OBL RIGHT X-RAY EXAM OF FINGER(S) Danielle Car, UNIT TENDER.TOBACCO SIZER [address] [place] [address] [place] [address] Referral ID Status Reason Start Date Expiration Date V isits Requested Visits Authorized [id number] Closed Auto-Generate d Referral 01/29/2021 02/28/2022 1 1 [facility] Advance Directives No Advanced Directives Records FoundDocuments on File Type Date Recorded 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 No July 16, 2024 3:02am Summary Purpose [...] or prosecute any alcohol or drug abuse patient.[facility] HospitalIn the event this information is protected by the Federal Confidentiality of Alcohol and Drug Abuse Patient Records regulations: The Federal rules restrict any use of the information to criminally investigate or prosecute any alcohol or drug abuse patient.[facility] the event this information is protected by the Federal Confidentiality of Alcohol and Drug Abuse Patient Records regulations: The Federal rules restrict any use of the information to criminally investigate or prosecute any alcohol or drug abuse patient.[facility] HospitalIn the event this information is protected by the Federal Confidentiality of Alcohol and Drug Abuse Patient Records regulations: The Federal rules restrict any use of the information to criminally investigate or prosecute any alcohol or drug abuse patient.[facility] HospitalIn the event this information is protected by the Federal Confidentiality of Alcohol and Drug Abuse Patient Records regulations: The Federal rules restrict any use of the information to criminally investigate or prosecute any alcohol or drug abuse patient.[facility] HospitalIn the event this information is protected by the Federal Confidentiality of Alcohol and Drug Abuse Patient Records regulations: The Federal rules restrict any use of the information to criminally investigate or prosecute any alcohol or drug abuse patient.[facility] HospitalIn the event this information is protected by the Federal Confidentiality of Alcohol and Drug Abuse Patient Records regulations: The Federal rules restrict any use of the information to criminally investigate or prosecute any alcohol or drug abuse patient.[facility] HospitalIn the event this information is protected by the Federal Confidentiality of Alcohol and Drug Abuse Patient Records regulations: The Federal rules restrict any use of the information to criminally investigate or prosecute any alcohol or drug abuse patient.[facility] HospitalIn the event this information is protected by the Federal Confidentiality of Alcohol and Drug Abuse Patient Records regulations: The Federal rules restrict any use of the information to criminally investigate or prosecute any alcohol or drug abuse patient.[facility] HospitalIn the event this information is protected by the Federal Confidentiality of Alcohol and Drug Abuse Patient Records regulations: The Federal rules restrict any use of the information to criminally investigate or prosecute any alcohol or drug abuse patient.[facility] HospitalIn the event this information is protected by the Federal Confidentiality of Alcohol and Drug Abuse Patient Records regulations: The Federal rules restrict any use of the information to criminally investigate or prosecute any alcohol or drug abuse patient.[facility] HospitalIn the event this information is protected by the Federal Confidentiality of Alcohol and Drug Abuse Patient Records regulations: The Federal rules restrict any use of the information to criminally investigate or prosecute any alcohol or drug abuse patient.[facility] HospitalIn the event this information is protected by the Federal Confidentiality of Alcohol and Drug Abuse Patient Records regulations: The Federal rules restrict any use of the information to criminally investigate or prosecute any alcohol or drug abuse patient.[facility] Care Teams (unrecognized sec tion and content) 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 Engineering Teacher Relationship Specialty Start Date End Date Alexx Segura MD [address] [place], [place] [id number] PCP - General Family Practice 12/30/18 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 Engineering Teacher Relationship Specialty Start Date End Date Alexx Segura MD [address] [place], [place] [id number] PCP - General Family Medicine 12/30/18 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 Engineering Teacher Relationship Specialty Start Date End Date Alexx Segura MD [address] [place], [place] [id number] PCP - General Family Medicine 12/30/18 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 Engineering Teacher Relationship Specialty Start Date End Date Pcp, No, UNIT TENDER PCP - General Adult Health 05/13/23 12/07/23 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 Engineering Teacher Relationship Specialty Start Date End Date Pcp, No, UNIT TENDER PCP - General Adult Health 05/13/23 12/07/23 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 Engineering Teacher Relationship Specialty Start Date End Date Alexx Segura MD [address] [place], [place] [id number] PCP - General Family Medicine 12/30/18 05/12/23 [...] July 16, 2024 End: July 16, 2024 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 Engineering Teacher Relationship Specialty Start Date End Date Kary Galindo MD [address] [place] [phone] Referring Neurology 06/09/24 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 Engineering Teacher Relationship Specialty Start Date End Date Kary Galindo MD [address] [place] [address] [phone] Referring Neurology 06/09/24 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 Engineering Teacher Relationship Specialty Start Date End Date Kary Galindo MD [address] [place] [address] [phone] Referring Neurology 06/09/24 Team Status: Active Member [...] section and content) DATE CREATED AUTHOR 06/27/2024 [facility] DATE CREATED AUTHOR AUTHOR'S ORGANIZ ATION 08/18/2024 [facility] DATE CREATED AUTHOR AUTHOR'S ORGANIZ ATION 08/30/2024 [facility] DATE CREATED AUTHOR AUTHOR'S ORGANIZ ATION 10/05/2024 [facility] Goals (unrecognized section and content) Goals [...] BE BASED ON THE PRIMARY CLINICAL RECORDS. [employer] provides no warranty or guarantee of the accuracy or completeness of information in this document.
== END | disposition home or self-care (01) ==
LOC: BIMLAB 11:47
PROVIDERS: PCP Internal Medicine; Visit Provider Internal Medicine
DX: R73.09 Other abnormal glucose (principal); K21.9 Gastro-esophageal reflux disease without esophagitis; R79.89 Other specified abnormal findings of blood chemistry; Z13.6 Encounter for screening for cardiovascular disorders
CPT/HCPCS: 36415; 80053; 80061; 83036; 84443; 85025

== ENCOUNTER → 2024-10-13 | Outpatient (CLI) | payer MEDICAID, SELFPAY ==
--- NOTE | 2024-10-13 13:45 | BI_ITS ---
EXAM: SCRN MAMM (CAD)W/BIJAL BILAT DATE: 10/13/2024 CLINICAL HISTORY: F, Age 49 y/o , SCREENING No family history. TECHNIQUE: SCRN MAMM (CAD)W/BIJAL BILAT COMPARISON: Prior exam(s) dated January 28, 2012.. FINDINGS: TISSUE DENSITY: The breasts are almost entirely fatty. Bilateral Breast Mammographic Findings: No significant masses, calcifications or other abnormalities are identified. No suspicious masses, areas of developing architectural distortion, or suspicious calcifications. There has been no significant interval change. BI/SCRN MAMM (CAD)W/BIJAL BILAT IMPRESSION: Stable examination OVERALL FINAL ASSESSMENT BI-RADS 1: NEGATIVE. RECOMMENDATION: Routine annual follow-up in 1 Year A letter with findings and recommendations will be mailed to the patient. Reading Location: [id number]
== END | disposition home or self-care (01) ==
LOC: SL 12:26
PROVIDERS: PCP Internal Medicine; Referring Provider Internal Medicine; Visit Provider Internal Medicine
DX: Z12.31 Encounter for screening mammogram for malignant neoplasm of breast (principal); G47.10 Hypersomnia, unspecified
CPT/HCPCS: 77063; 77067; 95806

== ENCOUNTER → 2024-10-28 | Outpatient (CLI) | payer MEDICAID, SELFPAY ==
--- OUTSIDE RECORDS SUMMARY | 2024-10-28 20:14 | XMS RPT_ITS | CCD ---
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 Savita Ahn MD Primary Care Provider [phone] Dr. Savita Ahn MD Attending Provider Dr. Savita Ahn MD Referring Provider Adal Dempsey MD Emergency Provider [phone] Adal Dempsey MD Attending Provider Kary Galindo MD Unavailable ALEXX MACE Referring Unavailab ALEXX Hirsch Attending Unavailab KARY Trevizo Referring Unavailable Dr. Savita Ahn MD Primary Care Provider [phone] Dr. Savita Ahn MD Attending Provider Dr. Savita Ahn MD Referring Provider Dr. Natalio Thibodeaux MD Attending Provider [place], Savita Attending Unavailable Jimy, Savita Primary Care Unavailable Jimy, Savita Attending Unavailable [place], Savita Primary Care Unavailable Jimy, Savita Referring Unavailable Jimy, Savita Referring Unavailable [place], Savita Primary Care Unavailable Humberto Lira Attending Unavailable [place], Savita Attending Unavailable [place], Savita Primary Care Unavailable Jimy, Savita Referring Unavailable Jimy, Savita Attending Unavailable Jimy, Savita Referring Unavailable Jimy, Savita Primary Care Unavailable Jimy, Savita Attending Unavailable [place], Savita Primary Care Unavailable [place], Savita Referring Unavailable Jimy, Savita Referring Unavailable Jimy, Savita Primary Care Unavailable Natalio Thibodeaux Attending Unavailable [place], Savita Primary Care Unavailable Jimy, Savita Referring Unavailable Mayco Chavez Attending Unavailable [place], Savita Referring Unavailable Sangeetha Garibay Attending Unavailable [place], Savita Primary Care Unavailable Jimy, Savita Primary Care Unavailable Andrea Mcmullen Attending Unavailable Thanh Mcdonald Attending Unavailable [place], Savita Primary Care Unavailable Jimy, Savita Primary Care Unavailable Nelson Ba Attending Unavailable [place], Savita Primary Care Unavailable Thanh Mcdonald Attending Unavailable [place], Savita Primary Care Unavailable Adal Dempsey Attending Unavailable [place], Savita Attending Unavailable Jimy, Savita Referring Unavailable Jimy, Savita Primary Care Unavailable Jimy, Savita Attending Unavailable [place], Savita Referring Unavailable [place], Savita Primary Care Unavailable [place], Savita Attending Unavailable [place], Savita Primary Care Unavailable [place], Savita Referring Unavailable Medications Current Medications Medication Drug Class(es) [...] Comment on above: Take 2 tablets by [facility] as needed. amoxicillin 875 mg oral tablet (1 source) Penicillin-class Antibacterial Start: 11-27-2021 End: 12-04-2021 take 1 tablet by mouth twice daily amoxicillin (AMOXIL) 875 mg tablet Take 1 tablet by mouth twice daily for 7 days. 14 tablet 0 11/27/2021 12/04/2021 Active Comment on above: Take 1 tablet by [facility] twice daily for 7 days. amoxicillin 875 mg / clavulanate 125 mg oral tablet (7 sources) Penicillin-class Antibacterial Start: 05-19-2022 End: 05-29-2022 [...] Comment on above: Take 1 tablet by [facility] twice daily for 10 days. atorvastatin 10 mg oral tablet (3 sources) HMG-CoA Reductase Inhibitor Start: take 1 tablet by mouth at bedtime Atorvastatin (Lipitor) 10 mg tablet Active 10 mg PO AT BEDTIME 30 October 11, 2024 12:00am Marisabel.Reji Vazquez h,Reg,Med misc (6 sources) Start: MarisabelReji Hanley,Reg,Med misc Active 0 .Route 24 0 August 25, 2023 12:00am As directed Start: 08-25-2023 Marisabel.Stocki ng,Thigh,Reg,Med misc Active 0 .Route August 25, 2023 12:00am As directed cyclobenzaprine hydrochloride 5 mg oral tablet (6 sources) Muscle Relaxant Start: 10-04-2024 End: 10-17-2024 take 1 tablet by mouth at bedtime as needed for muscle spasms Cyclobenzaprine 5 mg tablet Active 5 mg PO AT BEDTIME as needed for muscle spasm 14 0 October 17, 2024 9:40am DULoxetine 30 mg delayed release oral capsule (13 sources) Serotonin and Norepinephrine Reuptake Inhibitor Start: 12-30-2018 take 1 capsule by mouth once daily DULoxetine (CYMBALTA) 30 mg capsule Take 1 capsule by mouth once daily. 30 capsule 5 12/30/2018 Active Comment on above: Take 1 capsule by [facility] once daily. fluticasone propionate 0.05 mg/actuat metered dose nasal spray (6 sources) Corticosteroid Start: 04-26-2024 take 50 ug nasal route once daily Fluticasone Propionate (Flonase Allergy Relief) 50 mcg/actuation spray,suspension Active 1 NMA INTRANASAL daily April 26, 2024 1:00am administer into each nostril gabapentin 400 mg oral capsule (17 sources) Anti-epileptic Agent Start: 10-04-2024 take 1 [...] pantoprazole 40 mg delayed release oral tablet (10 sources) Proton Pump Inhibitor Start: 10-04-2024 take [...] (Original) clorazepate dipotassium 3.75 mg oral tablet (6 sources) Benzodiazepine Start: 11-11-2023 End: 12-04-2023 take 1 tablet by mouth three times daily as needed for anxiety Clorazepate Dipotassium 3.75 mg tablet Discontinued 3.75 mg PO THREE TIMES A DAY as needed for anxiety 14 5 0 November 11, 2023 12:00am December 04, 2023 1:13am Anxious reaction Generalized anxiety disorder escitalopram 10 mg oral tablet (6 sources) Serotonin Reuptake Inhibitor Start: 08-28-2023 End: 10-23-2023 take 1 tablet by mouth once daily Escitalopram Oxalate (Lexapro) 10 mg tablet Discontinued 10 mg PO DAILY 30 0 August 28, 2023 12:00am October 23, 2023 8:23am esomeprazole 40 mg delayed release oral capsule (20 sources) Proton Pump Inhibitor Start: 05-19-2024 End: 10-04-2024 take 1 capsule by mouth once daily Esomeprazole Magnesium 40 mg capsule,delayed release(DR/EC) Discontinued 40 mg PO daily 90 May 19, 2024 12:40pm October 04, 2024 9:24am Start: 04-26-2024 End: 05-19-2024 take 1 capsule by mouth once daily Esomeprazole Magnesium 20 mg capsule,delayed release(DR/EC) Discontinued 20 mg PO daily 90 April 26, 2024 9:26am May 19, 2024 12:40pm Start: 12-16-2023 End: 04-26-2024 take 1 capsule by mouth once daily Esomeprazole Magnesium (Nexium) 40 mg capsule,delayed release(DR/EC) Discontinued 40 mg PO daily 30 February 08, 2024 11:01am April 26, 2024 9:34am hydrOXYzine hydrochloride 25 mg oral tablet (12 sources) Antihistamine Start: 12-04-2023 End: 12-16-2023 take [...] 2023 4:37pm levETIRAcetam 500 mg oral tablet (6 sources) Start: 10-23-2023 End: 12-04-2023 take 1 tablet by mouth twice daily Levetiracetam (Keppra) 500 mg tablet Discontinued 500 mg PO TWICE A DAY October 23, 2023 12:00am December 04, 2023 1:12am levothyroxine sodium 0.15 mg oral capsule (6 sources) l-Thyroxine Start: 04-26-2024 End: 07-16-2024 take 1 capsule by mouth once daily Levothyroxine 150 mcg capsule Discontinued 150 ug PO daily 07 04April 26, 2024 1:00am July 16, 2024 3:02am meclizine hydrochloride 25 mg oral tablet (12 sources) Antiemetic Start: 08-16-2023 End: 12-04-2023 take 1 tablet by mouth every eight hours as needed for dizziness Meclizine 25 mg tablet Discontinued 25 mg PO EVERY 8 HOURS NEEDED as needed for Dizziness October 23, 2023 8:23am December 04, 2023 1:12am meloxicam 7.5 mg oral tablet (6 sources) Nonsteroidal Anti-inflammatory Drug Start: 04-26-2024 End: 07-16-2024 take 1 tablet by mouth once daily Meloxicam 7.5 mg tablet Discontinued 7.5 mg PO daily April 26, 2024 1:00am July 16, 2024 3:03am naproxen 500 mg oral tablet (6 sources) Nonsteroidal Anti-inflammatory Drug Start: 08-24-2017 End: 07-30-2023 take 1 tablet by mouth twice daily as needed Naproxen 500 MG tablet Discontinued 500 mg PO TWICE DAILY NEEDED August 24, 2017 12:00am July 30, 2023 4:33pm Problems Active Problems Problem Classification Problem Date Documented Date Episodic/Chronic Anxiety disorders (7 sources) Anxiety; Translations: [Generalized anxiety disorder] Onset: 02-22-2024 11-19-2023 Chronic Cardiac dysrhythmias (7 sources) Palpitations; Translations: [Palpitations] Onset: 10-04-2024 04-26-2024 Episodic Diabetes mellitus without complication (4 sources) Increased glucose level; Translations: [Other abnormal glucose] Onset: 10-21-2024 10-04-2024 Episodic Disorders of lipid metabolism (13 sources) Hypertriglyceridemia; Translations: [Pure hyperglyceridemia] 12-30-2018 Chronic Epilepsy; convulsions (6 sources) Seizure disorder; Translations: [Epilepsy, unspecified, not intractable, without status epilepticus] 11-11-2023 Chronic Esophageal disorders (18 sources) Gastroesophageal reflux disease; Translations: [Gastro-esophageal reflux disease without esophagitis] Onset: 12-25-2023 12-04-2023 Chronic Comment on above: Patient 49-year-old female with recently progressive symptoms of both heartburn and reflux. She reports that her heartburn symptoms are more troubling but spends majority of today's visit discussing her reflux complaints. She appears to have taken a number of steps to try to mitigate this experience. She also reports faithful use of PPI medication. I do see it is potentially more than a coincidence that she has experienced approximately 20 pound weight gain during the same time that she is notices a worsening of her symptoms. I suspect she may have compromise of her lower esophageal sphincter. I discussed the suspicion for a hiatal hernia with patient and use hand drawings to illustrate the relevant physiology. I shared the role of increased abdominal girth and this diagnosis. I also briefly discussed the surgical management of refractory reflux disease to include hiatal hernia repair with fundoplication versus bariatric surgery. I shared that the latter would likely be most beneficial given patient's BMI, however, her concurrent tobacco use would invalidate her as a candidate for bariatric surgery given the risk for marginal ulcer. Lastly, I confirmed my interest in proceeding with an EGD to better understand her anatomy, test for H. pylori, assess for esophagitis, and rule out any ulcer disease. Gastritis and duodenitis (6 sources) Gastritis; Translations: [Gastritis, unspecified, without bleeding] 12-04-2023 Episodic Headache; including migraine (12 sources) Headache; Translations: [Headache] 08-07-2023 Episodic Menstrual disorders (13 sources) Irregular periods; Translations: [Irregular menstruation, unspecified] Onset: 01-07-2012 01-07-2012 Chronic Mood disorders (7 sources) Moderate major depression ; Translations: [Major depressive disorder, single episode, moderate] Onset: 12-25-2023 04-26-2024 Chronic Nutritional deficiencies (13 sources) Vitamin D deficiency; Translations: [Vitamin D deficiency, unspecified] 12-30-2018 Chronic Other aftercare (6 sources) Post-discharge follow-up; Translations: [Encounter for follow-up examination after completed treatment for conditions other than malignant neoplasm] 08-25-2023 Episodic Other and unspecified benign neoplasm (19 sources) Neoplasm of meninges; Translations: [Benign neoplasm of meninges, unspecified] 08-07-2023 Chronic Other and unspecified benign neoplasm (6 sources) Intracranial meningioma; Translations: [Benign neoplasm of cerebral meninges] 08-07-2023 Chronic Other and unspecified benign neoplasm (2 sources) Benign neoplasm of meninges, unspecified; Translations: [Meningioma (HCC)] Onset: 12-25-2023 Chronic Other circulatory disease (12 sources) Elevated blood pressure; Translations: [Elevated blood-pressure reading, without diagnosis of hypertension] 08-07-2023 Episodic Other connective tissue disease (1 source) Pain in right thumb; Translations: [Pain in right finger(s)] 01-29-2021 Episodic Other connective tissue disease (6 sources) Neuropathic pain; Translations: [Neuralgia and neuritis, unspecified] 08-07-2023 Episodic Other connective tissue disease (4 sources) Suspected respiratory disease; Translations: [Other symptoms and signs involving the nervous system] 10-04-2024 Episodic Other ear and sense organ disorders (6 sources) Tinnitus; Translations: [Tinnitus, unspecified ear] 10-24-2023 Episodic Other nervous system disorders (3 sources) Perineurial cyst; 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] 04-26-2024 Chronic Other nervous system disorders (1 source) Other chronic pain; Translations: [Other chronic pain] Onset: 04-26-2024 Chronic Other nervous system disorders (6 sources) Observation of sensation; Translations: [Other disturbances of skin sensation] 08-13-2023 Episodic Other nervous system disorders (6 sources) Numbness and tingling sensation of skin; Translations: [Anesthesia of skin] 12-12-2023 Episodic Other nervous system disorders (7 sources) Paresthesia; Translations: [Paresthesia of skin] 09-05-2023 Episodic Other nervous system disorders (6 sources) Finding of sensation of lower limb; Translations: [Unspecified disturbances of skin sensation] 11-19-2023 Episodic Other nervous system disorders (6 sources) Skin sensation disturbance; Translations: [Unspecified disturbances of skin sensation] 11-19-2023 Episodic Other non-traumatic joint disorders (1 source) Pain in left knee; Translations: [Pain in joint, lower leg] 01-16-2023 Episodic Other screening for suspected conditions (not mental disorders or infectious disease) (20 sources) Patient encounter status; Translations: [Encounter for screening mammogram for malignant neoplasm of breast] Onset: 04-26-2024 Episodic Comment on above: Patient with history of constipation, not acutely worse. No prior colon screening history. Does not appear to be at increased risk for malignancy based on family history. Agree we should plan for colonoscopy alongside proposed EGD. As above, however, recommend strongly that we wait until such time as her suspected sleep apnea can be more thoroughly investigated and treated. Other upper respiratory infections (1 source) Acute [...] [Tobacco use] 12-30-2018 Episodic Residual codes; unclassified (6 sources) Personal history of other specified conditions; Translations: [History of seizure] 11-19-2023 Episodic Residual codes; unclassified (2 sources) Influenza vaccination declined; Translations: [Immunization not carried out because of patient refusal] 04-26-2024 Episodic Residual codes; unclassified (3 sources) Noncompliance with treatment; Translations: [Non-compliance] 10-04-2024 Episodic Substance-related disorders (7 sources) Cigarette smoker ; Translations: [Nicotine dependence, cigarettes, uncomplicated] Onset: 12-25-2023 04-26-2024 Chronic Syncope (6 sources) Near syncope; Translations: [Syncope and collapse] 08-07-2023 Episodic Thyroid disorders (14 sources) Subclinical hypothyroidism; Translations: [Other specified hypothyroidism] Onset: 05-08-2024 12-30-2018 Chronic Unclassified (2 sources) M54.41 - Lumbago with sciatica, right side,M54.42 - Lumbago with sciatica, left side,G89.29 - Other chronic pain,G96.191 - Perineural cyst Unclassified (5 sources) M54.41 - Lumbago with sciatica, right side,M54.42 - Lumbago with sciatica, left side,G89.29 - Other chronic pain Unclassified (3 sources) Encounter for screening for malignant neoplasm of colon Unclassified (6 sources) Z12.4 - Encounter for screening for malignant neoplasm of cervix Unclassified (3 sources) Chronic low back pain with bilateral sciatica Unclassified (3 sources) K21.9 - Gastro-esophageal reflux disease without esophagitis,Z12.11 - Encounter for screening for malignant neoplasm of colon Unclassified (1 source) Perineural cyst; 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] Onset: 04-26-2024 Past or Other Problems Problem Classification Problem Date Documented Da te Episodic/Chronic Abdominal pain (7 sources) Abdominal pain; Translations: [Unspecified abdominal pain] Onset: 02-22-2024 12-04-2023 Episodic Conditions associated with dizziness or vertigo (20 sources) Dizziness; Translations: [Dizziness and giddiness] Onset: 12-25-2023 08-04-2023 Episodic Nonspecific chest pain (13 sources) Chest discomfort; Translations: [Other chest pain] Onset: 01-23-2024 07-16-2024 Episodic Other nervous system disorders (3 sources) Paresthesia of skin; Translations: [Paresthesia] Onset: 12-28-2023 Episodic Other nervous system disorders (1 source) Other disturbances of skin sensation; Translations: [Other disturbances of skin sensation] Onset: 12-25-2023 Episodic Spondylosis; intervertebral disc disorders; other back problems (8 sources) Chronic low back pain; Translations: [Lumbago with sciatica, right side] Onset: 02-18-2025 02-18-2025 Episodic Results Test Name Value Interpretation Reference Range Facility Surgery Visit Reporton 10-19 Surgery Visit Report [facility] [address] [place], [place] [address] OFFICE VISIT Date of Service: 10/19/24 MR#: [id number] Acct: [id number] Name: FAUSTINA GLASGOW Rep #: [id number] : 1975 Provider: Dr. Natalio ramos MD Age/Sex: 49/F Location: [facility] Status: Signed Intake Vital Signs 10/04/24 09:03 10/19/24 15:02 Height 5 ft 3 in 5 ft 3 in Weight: 223 lb 221 lb BMI 39.4 39.1 BP 126/72 H 144/77 H Blood Pressure Location Lt brachial Rt brachial Position Sitting Sitting Respiration 16 17 Pulse 79 83 Pulse Source Monitor Monitor Temp 96.5 F L 96.2 F L Temp Source Temporal Temporal Pulse Oximetry (%) 96 97 Oxygen Delivery Method room air room air Intake Visit Reasons: UPPER AND LOWER- GERD Chief Complaint: upper and lower, has dx GERD Is patient in pain?: No Allergies No Known Allergies Allergy (Verified 10/19/24 15:03) Medications ???Medication ???Instructions ???Recorded ???Confirmed ???Type marisabel.stocking,thigh ,reg,med #24 ea 08/25/23 10/19/24 Rx fluticasone propionate 50 1 spray intranasal QDAY 04/26/24 0 10/19/24 History mcg/actuation nasal spray,suspension (Flonase Allergy Relief) gabapentin 400 mg capsule 400 mg PO BID 10/04/24 10/19/24 Hi story gabapentin 600 mg tablet 600 mg PO QHS 10/04/24 10/19/24 Hi story pantoprazole 40 mg tablet,delayed 40 mg PO QDAY #30 tabs 10/04/24 0 10/19/24 Rx release (Protonix) atorvastatin 10 mg tablet (Lipitor) 10 mg PO QHS #30 tabs 10/11/24 10/19/24 Rx cyclobenzaprine 5 mg tablet 5 mg PO QHS PRN muscle spasm #14 0 10/17/24 10/19/24 Rx tabs PFSH Medical History Seizure disorder Meningioma Meningioma Vitamin deficiency Gallstones Carpal tunnel syndrome Surgical History S/P cholecystectomy History of carpal tunnel surgery H/O: Family History Mother Diabetes Father Heart disease Myocardial infarction, Onset Age: 46 Social History adopted: No household members: spouse, family and children housing: house number of children: 5 current occupational status: employed 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 They are referred for surgical consultation from Dr. Ahn. Ms. Glasgow reports reflux symptoms for a number of years and expresses that heartburn seems to generally be more troubling than reflux but she does experience both. She notes that without medical treatment she will experience daily symptoms. She adds that Nexium has been better than Protonix for control of her symptoms. Concerning her reflux she shares that she awakens quite a bit (later estimated at 3 times per week) with symptoms that she is choking in the taste of vomit in her mouth. She has resorted to either try to prop herself up in bed or just simply sleeping in a recliner. They have attempted dietary modifications; eating earlier and abstaining from spicy foods. She estimates that she is currently consuming just 1 pop per day as far as her caffeine intake after struggling with a pop addiction for years. Patient has not had prior colonoscopy. They describe their bowel habits as occasionally marked with constipation. They have approximately 1 bowel movements every other day and spend roughly 10-15 minutes on the toilet sometimes with significant straining. They have not noticed recent bleeding or dark stools. They admit they do not consume significant fiber in their regular diet. Patient has no family history of colon cancer, inflammatory bowel disease, diverticulitis. Relevant prior abdominal surgical history includes: Cholecystectomy and section Outside above patient notes that she recently failed and at home sleep study test and now requires a formal sleep lab study to better characterize the diagnosis of obstructive sleep apnea. Patient also shares that she had blood work 2 weeks ago that showed her hemoglobin A1c is now 6.6 which is worsening from a p (more content not included)... Normal [facility] Breast imaging reportOrdered By: Deyvi Olivares on 10-13-2024 Study report [facility] [address] [place] [address] SCRN MAMM (CAD)W/BIJAL BILAT MR#: [id number] Acct: [id number] Name: FAUSTINA GLASGOW Rep #: [id number] : 1975 F 49 From: Corby Olivares MD PCP: Dr. Savita Ahn MD Status: [facility] Study:SCRN MAMM (CAD)W/BIJAL BILAT Date of Exa m: 10/13/24 Exam# [id number] Ordering Dr: Savita Ahn MD EXAM: SCRN MAMM (CAD)W/BIJAL BILAT DATE: 10/13/2024 CLINICAL HISTORY: F, Age 49 y/o , SCREENING No family history. TECHNIQUE: SCRN MAMM (CAD)W/BIJAL BILAT COMPARISON: Prior exam(s) dated January 28, 2012.. FINDINGS: TISSUE DENSITY: The breasts are almost entirely fatty. Bilateral Breast Mammographic Findings: No significant masses, calcifications or other abnormalities are identified. No suspicious masses, areas of developing architectural distortion, or suspicious calcifications. There has been no significant interval change. BI/SCRN MAMM (CAD)W/BIJAL BILAT IMPRESSION: Stable examination OVERALL FINAL ASSESSMENT BI-RADS 1: NEGATIVE. RECOMMENDATION: Routine annual follow-up in 1 Year A letter with findings and recommendations will be mailed to the patient. Reading Location: [id number] CC: Dr. Savita Ahn MD ~ Manager Of Program: Signed [facility] SCRN MAMM (CAD)W/BIJAL BILATo n 10-13-2024 SCRN MAMM (CAD)W/BIJAL BILAT [facility] [address] [place] [address] SCRN MAMM (CAD)W/BIJAL BILAT MR#: [id number] Acct: [id number] Name: FAUSTINA GLASGOW Rep #: [id number] : 1975 F 49 From: Deyvi still MD PCP: Dr. Savita Ahn MD Status: REG [facility] Study: SCRN MAMM (CAD)W/BIJAL BILAT Date of Exam: 09/30 Exam# [id number] Ordering Dr: Savita Ahn MD EXAM: SCRN MAMM (CAD)W/BIJAL BILAT DATE: 10/13/2024 CLINICAL HISTORY: F, Age 49 y/o , SCREENING No family history. TECHNIQUE: SCRN MAMM (CAD)W/BIJAL BILAT COMPARISON: Prior exam(s) dated January 28, 2012.. FINDINGS: TISSUE DENSITY: The breasts are almost entirely fatty. Bilateral Breast Mammographic Findings: No significant masses, calcifications or other abnormalities are identified. No suspicious masses, areas of developing architectural distortion, or suspicious calcifications. There has been no significant interval change. BI/SCRN MAMM (CAD)W/BIJAL BILAT IMPRESSION: Stable examination OVERALL FINAL ASSESSMENT BI-RADS 1: NEGATIVE. RECOMMENDATION: Routine annual follow-up in 1 Year A letter with findings and recommendations will be mailed to the patient. Reading Location: [id number] CC: Dr. Savita Ahn MD Manager Of Program: Signed Normal [facility] Absolute lymphocyte countOrd ered By: Savita Ahn on 10-05-2024 Lymphocytes Auto (Unsp spec) [#/Vol] 2.42 10*3/uL 0.83-4.51 [facility] Absolute neutrophil countOrd ered By: Savita Ahn on 10-05-2024 Neutrophils (Bld) [#/Vol] 4.1 10*3/uL 2.0-7.7 [facility] Anion gap in Serum or Plasma Ordered By: Savita Ahn on 10-05-2024 Anion gap [Moles/Vol] 11 mmol/L 5- [facility] Automated lymphocyte count a s percentage of total leukocytesOrdered By: Savita Ahn on 10-05-2024 Lymphocytes/100 WBC Auto (Unsp spec) 35.1 % - [facility] BUN/creatinine ratioOrdered By: Savita Ahn on 10-05-2024 Urea nitrogen/Creatinine [Mass ratio] 13.8 mg/mg 10- [facility] Basophil percentageOrdered B y: Savita Ahn on 10-05-2024 Basophils/100 WBC (Bld) 0.4 % 0-1 [facility] Bilirubin, totalOrdered By: Savita Ahn on 10-05-2024 Bilirubin [Mass/Vol] 0.28 mg/dL 0.00-1.30 [facility] CBC W/Diff, Automatedon 09-08 Absolute Lymph 2.42 X10 3/uL Normal 0.83-4.51 [facility] Comment on above: Performed By: #### L 100.0100, L500.4100, L501.9520, L500.4050, L501.9985 #### [facility] [address] [place], [address] Absolute Neut 4.1 X10 3/uL Normal 2.0-7.7 [facility] Comment on above: Performed By: #### L 100.0100, L500.4100, L501.9520, L500.4050, L501.9985 #### [facility] [address] [place], [address] Basophils/100 WBC (Bld) 0.4 % Normal 0-1 [facility] Comment on above: Performed By: #### L 100.0100, L500.4100, L501.9520, L500.4050, L501.9985 #### [facility] [address] [place], [address] Eosinophils/100 WBC (Bld) 1.2 % Normal 0-5 [facility] Comment on above: Performed By: #### L 100.0100, L500.4100, L501.9520, L500.4050, L501.9985 #### [facility] [address] [place], [address] Erythrocyte distribution width (RBC) [Ratio] 15.3 % High 11.6-14.6 [facility] Comment on above: Performed By: #### L 100.0100, L500.4100, L501.9520, L500.4050, L501.9985 #### [facility] [address] [place], [address] Hematocrit (Bld) [Volume fraction] 44.4 % Normal 37-47 [facility] Comment on above: Performed By: #### L 100.0100, L500.4100, L501.9520, L500.4050, L501.9985 #### [facility] [address] [place], [address] Hemoglobin (Bld) [Mass/Vol] 14.1 g/dL Normal 12.0-15.0 [facility] Comment on above: Performed By: #### L 100.0100, L500.4100, L501.9520, L500.4050, L501.9985 #### [facility] [address] [place], [address] IG% 0.600 Normal 0.0-0.9 [facility] Comment on above: Result Comment: IG% - Immature Granulocytes (promyelocytes, myelocytes and metamyelocytes) > 1% indicates that a LEFT SHIFT is Present. Performed By: #### L 100.0100, L500.4100, L501.9520, L500.4050, L501.9985 #### [facility] [address] [place], [address] Lymphocytes/100 WBC (Bld) 35.1 % Normal 19-41 [facility] Comment on above: Performed By: #### L 100.0100, L500.4100, L501.9520, L500.4050, L501.9985 #### [facility] [address] [place], [address] MCH (RBC) [Entitic mass] 27.0 pg Normal 27.0-32.0 [facility] Comment on above: Performed By: #### L 100.0100, L500.4100, L501.9520, L500.4050, L501.9985 #### [facility] [address] [place], [address] MCHC (RBC) [Mass/Vol] 31.8 g/dL Low 32-36 [facility] Comment on above: Performed By: #### L 100.0100, L500.4100, L501.9520, L500.4050, L501.9985 #### [facility] [address] [place], [address] MCV (RBC) [Entitic vol] 85.1 fL Normal 81-99 [facility] Comment on above: Performed By: #### L 100.0100, L500.4100, L501.9520, L500.4050, L501.9985 #### [facility] [address] [place], [address] Monocytes/100 WBC (Bld) 3.3 % Normal 0-10 [facility] Comment on above: Performed By: #### L 100.0100, L500.4100, L501.9520, L500.4050, L501.9985 #### [facility] [address] [place], [address] Neutrophils/100 WBC (Bld) 59.4 % Normal 47-70 [facility] Comment on above: Performed By: #### L 100.0100, L500.4100, L501.9520, L500.4050, L501.9985 #### [facility] [address] [place], [address] Nucleated RBC (Bld) [#/Vol] 0 10*3/uL Normal 0-5 [facility] Comment on above: Performed By: #### L 100.0100, L500.4100, L501.9520, L500.4050, L501.9985 #### [facility] [address] [place], [address] Platelet mean volume (Bld) [Entitic vol] 11.2 fL Normal 6.2-12.0 [facility] Comment on above: Performed By: #### L 100.0100, L500.4100, L501.9520, L500.4050, L501.9985 #### [facility] [address] [place], [address] Platelets (Bld) [#/Vol] 226 10*3/uL Normal 150-450 [facility] Comment on above: Performed By: #### L 100.0100, L500.4100, L501.9520, L500.4050, L501.9985 #### [facility] [address] [place], [address] RBC (Bld) [#/Vol] 5.22 10*6/uL Normal 4.2-5.4 [facility] Comment on above: Performed By: #### L 100.0100, L500.4100, L501.9520, L500.4050, L501.9985 #### [facility] [address] [place], [address] RDW SD 47.2 fl High 35.1-43.9 [facility] Comment on above: Performed By: #### L 100.0100, L500.4100, L501.9520, L500.4050, L501.9985 #### [facility] [address] [place], [place], [id number] WBC (Bld) [#/Vol] 6.9 10*3/uL Normal 4.4-11.0 [facility] Comment on above: Performed By: #### L 100.0100, L500.4100, L501.9520, L500.4050, L501.9985 #### [facility] [address] [place], [place], [id number] Calculated very low density lipoprotein (VLDL) cholesterol measurementOrdered By: Savita Ahn on 10-05-2024 Calculated very low density lipoprotein (VLDL) cholesterol measurement 54 mg/dL High 5-40 [facility] Carbon dioxide, total [Moles /volume] in Central venous bloodOrdered By: Savita Jimy on 10-05-2024 CO2 [Moles/Vol] 23.6 mmol/L 21.0-32.0 [facility] Chloride assayOrdered By: Kee ycnanette Ahn on 10-05-2024 Chloride [Moles/Vol] 106 mmol/L 98-108 [facility] Comprehensive Metabolic Prof ilon 10-05-2024 Albumin [Mass/Vol] 3.8 g/dL Normal 3.5-5.0 [facility] Comment on above: Performed By: #### L 100.0100, L500.4100, L501.9520, L500.4050, L501.9985 #### [facility] [address] [place], [address] Albumin/Globulin [Mass ratio] 1.3 {ratio} Normal 0.9-2.4 [facility] Comment on above: Performed By: #### L 100.0100, L500.4100, L501.9520, L500.4050, L501.9985 #### [facility] [address] [place], [address] ALK PHOS 115 U/L High 35-104 [facility] Comment on above: Performed By: #### L 100.0100, L500.4100, L501.9520, L500.4050, L501.9985 #### [facility] [address] [place], [address] ALT [Catalytic activity/Vol] 23 U/L Normal <=34 [facility] Comment on above: Performed By: #### L 100.0100, L500.4100, L501.9520, L500.4050, L501.9985 #### [facility] [address] [place], [address] AST [Catalytic activity/Vol] 19 U/L Normal <=31 [facility] Comment on above: Performed By: #### L 100.0100, L500.4100, L501.9520, L500.4050, L501.9985 #### [facility] [address] [place], [address] Bilirubin [Mass/Vol] 0.28 mg/dL Normal 0.00-1.30 [facility] Comment on above: Performed By: #### L 100.0100, L500.4100, L501.9520, L500.4050, L501.9985 #### [facility] [address] [place], [address] BUN/CRE 13.8 RATIO Normal 10-20 [facility] Comment on above: Performed By: #### L 100.0100, L500.4100, L501.9520, L500.4050, L501.9985 #### [facility] [address] [place], [address] Calcium [Mass/Vol] 9.1 mg/dL Normal 7.6-11.0 [facility] Comment on above: Performed By: #### L 100.0100, L500.4100, L501.9520, L500.4050, L501.9985 #### [facility] [address] [place], [address] Chloride [Moles/Vol] 106 mmol/L Normal 98-108 [facility] Comment on above: Performed By: #### L 100.0100, L500.4100, L501.9520, L500.4050, L501.9985 #### [facility] [address] [place], [address] CO2 [Moles/Vol] 23.6 mmol/L Normal 21.0-32.0 [facility] Comment on above: Performed By: #### L 100.0100, L500.4100, L501.9520, L500.4050, L501.9985 #### [facility] [address] [place], [address] Creatinine [Mass/Vol] 0.98 mg/dL Normal 0.70-1.20 [facility] Comment on above: Performed By: #### L 100.0100, L500.4100, L501.9520, L500.4050, L501.9985 #### [facility] [address] [place], [address] GAP 11 Normal 5-15 [facility] Comment on above: Performed By: #### L 100.0100, L500.4100, L501.9520, L500.4050, L501.9985 #### [facility] [address] [place], [address] GFR/1.73 sq M.predicted among non-blacks MDRD (S/P/Bld) [Vol rate/Area] 70 mL/min/{1.73_m2} Normal >60 [facility] Comment on above: Result Comment: mL/m in/1.73m2 CKD-EPI Creatinine Equation (2020) Performed By: #### L 100.0100, L500.4100, L501.9520, L500.4050, L501.9985 #### [facility] [address] [place], [address] Globulin (S) [Mass/Vol] 3.0 g/dL Normal 2.2-4.2 [facility] Comment on above: Performed By: #### L 100.0100, L500.4100, L501.9520, L500.4050, L501.9985 #### [facility] [address] [place], [address] Glucose [Mass/Vol] 140 mg/dL High 70-99 [facility] Comment on above: Performed By: #### L 100.0100, L500.4100, L501.9520, L500.4050, L501.9985 #### [facility] [address] [place], [address] Potassium [Moles/Vol] 4.2 mmol/L Normal 3.3-5.1 [facility] Comment on above: Performed By: #### L 100.0100, L500.4100, L501.9520, L500.4050, L501.9985 #### [facility] [address] [place], [address] Sodium [Moles/Vol] 140 mmol/L Normal 133-145 [facility] Comment on above: Performed By: #### L 100.0100, L500.4100, L501.9520, L500.4050, L501.9985 #### [facility] [address] [place], [address] T PROT 6.8 g/dL Normal 5.9-8.4 [facility] Comment on above: Performed By: #### L 100.0100, L500.4100, L501.9520, L500.4050, L501.9985 #### [facility] [address] [place], [address] Urea nitrogen [Mass/Vol] 14 mg/dL Normal 4-19 [facility] Comment on above: Performed By: #### L 100.0100, L500.4100, L501.9520, L500.4050, L501.9985 #### [facility] [address] [place], [address] Eosinophil percentageOrdered By: Savita Ahn on 10-05-2024 Eosinophils/100 WBC (Bld) 1.2 % 0-5 [facility] Erythrocyte distribution wid th ratioOrdered By: Savita Ahn on 10-05-2024 Erythrocyte distribution width (RBC) [Ratio] 15.3 % High 11.6-14.6 [facility] Erythrocyte distribution wid th standard deviationOrdered By: Savita Ahn on 10-05-2024 Erythrocyte distribution width (RBC) [Ratio] 47.2 fl High 35.1-43.9 [facility] Glomerular filtration rate ( GFR) estimation/1.73 sq m using serum, plasma, or whole bOrdered By: Savita Ahn on 10-05-2024 GFR/1.73 sq M.predicted among non-blacks MDRD (S/P/Bld) [Vol rate/Area] 70 mL/min/{1.73_m2} >60 [facility] Comment on above: mL/min/1.73m2 CKD-EP I Creatinine Equation (2020) Hematocrit Auto (Bld) [Volum e fraction]Ordered By: Savita Ahn on 10-05-2024 Hematocrit (Bld) [Volume fraction] 44.4 % 37-47 [facility] Hemoglobin A1con 10-05-2024 HbA1c (Bld) [Mass fraction] 6.6 % High <=5.6 [facility] Comment on above: Result Comment: Norm al < 5.7 % Prediabetic 5.7 - 6.4 % Diabetic >or= 6.5 % Please note range changes. Performed By: #### L 500.2500, L501.5200, L501.9520, L100.0100, L501.4020 #### [facility] [address] [place], [address] Hemoglobin A1c percentageOrd ered By: Savita Ahn on 10-05-2024 HbA1c (Bld) [Mass fraction] 6.6 % High <5.7 [facility] Comment on above: Normal < 5.7 % Predi abetic 5.7 - 6.4 % Diabetic >or= 6.5 % Please note range changes. Hemoglobin measurementOrdere d By: Savita Ahn on 10-05-2024 Hemoglobin (Bld) [Mass/Vol] 14.1 g/dL 12.0-15.0 [facility] Immature granulocytes/100 WB C Auto (Bld)Ordered By: Savita Ahn on 10-05-2024 Immature granulocytes/100 WBC (Bld) 0.600 % 0.0-0.9 [facility] Comment on above: IG% - Immature Granu locytes (promyelocytes, myelocytes and metamyelocytes) > 1% indicates that a LEFT SHIFT is Present. LDL calc ser/plasOrdered By: Savita Ahn on 10-05-2024 Cholesterol in LDL [Mass/Vol] 90 mg/dL [facility] Comment on above: Kucaghpdyx=334-641 m g/dL & Higher Bkld=495 mg/dL or greaterFriedwald Equation for LDL-C Laboratory - Chemistry and C hemistry - challengeOrdered By: Savita Ahn on 10-05-2024 AST [Catalytic activity/Vol] 19 U/L <32 [facility] Lipid Profileon 10-05-2024 CHOL:HDL 7.08 Normal [facility] Comment on above: Performed By: #### L 100.0100, L500.4100, L501.9520, L500.4050, L501.9985 #### [facility] [address] [place], [address] Cholesterol [Mass/Vol] 167 mg/dL Normal <=200 [facility] Comment on above: Result Comment: Chol esterol level, Desirable <200 mg/dL Borderline high cholesterol 200-239 mg/dL High cholesterol >=240 mg/dL Recommendations of the NCEP Adult Treatment Panel for the following risk-cutoff thresholds for the [place] population. Performed By: #### L 100.0100, L500.4100, L501.9520, L500.4050, L501.9985 #### [facility] [address] [place], [address] Cholesterol in HDL [Mass/Vol] 24 mg/dL Low [facility] Comment on above: Result Comment: Rabia onal Cholesterol Education Program (NCEP) guidelines: <40 mg/dL: Low HDL-cholesterol (major risk factor for CHD) >= 60 mg/dL: High HDL-cholesterol (negative risk factor for CHD) HDL-cholesterol is affected by a number of factors, e.g. smoking, exercise, hormones, sex and age. Performed By: #### L 100.0100, L500.4100, L501.9520, L500.4050, L501.9985 #### [facility] [address] [place], [address] Cholesterol in LDL [Mass/Vol] 90 mg/dL Normal [facility] Comment on above: Result Comment: Bord gjxzzt=786-052 mg/dL Higher Leii=406 mg/dL or greater Friedwald Equation for LDL-C Performed By: #### L 100.0100, L500.4100, L501.9520, L500.4050, L501.9985 #### [facility] [address] [place], [address] Cholesterol in VLDL [Mass/Vol] 54 mg/dL High 5-40 [facility] Comment on above: Performed By: #### L 100.0100, L500.4100, L501.9520, L500.4050, L501.9985 #### [facility] [address] [place], [address] Triglyceride [Mass/Vol] 268 mg/dL High [facility] Comment on above: Result Comment: The drugs N-Acetylcysteine and Metamizole may falsely depress this assay. Normal range: <150 mg/dL Borderline High: 150-199 mg/dL High: 200-499 mg/dL Very High: >500 mg/dL Performed By: #### L 100.0100, L500.4100, L501.9520, L500.4050, L501.9985 #### [facility] [address] [place], [address] MCV (mean corpuscular volume ) determinationOrdered By: Savita Ahn on 10-05-2024 MCV (RBC) [Entitic vol] 85.1 fL 81-99 [facility] Mean corpuscular hemoglobin (MCH) determinationOrdered By: Savita Ahn on 10-05-2024 MCH (RBC) [Entitic mass] 27.0 pg 27.0-32.0 [facility] Mean corpuscular hemoglobin concentration (MCHC) determinationOrdered By: Savita Ahn on 10-05-2024 MCHC (RBC) [Mass/Vol] 31.8 g/dL Low 32-36 [facility] Mean platelet volume determi nationOrdered By: Savitacarey Ahn on 10-05-2024 Platelet mean volume (Bld) [Entitic vol] 11.2 fL 6.2-12.0 [facility] Monocyte percentageOrdered B y: Savita Ahn on 10-05-2024 Monocytes/100 WBC (Bld) 3.3 % 0-10 [facility] Neutrophil percentageOrdered By: Savitacarey Ahn on 10-05-2024 Neutrophils/100 WBC (Bld) 59.4 % 47-70 [facility] Nucleated red blood cell per centageOrdered By: Savita Ahn on 10-05-2024 Nucleated RBC/100 WBC (Bld) [Ratio] 0 % 0-5 [facility] Platelet countOrdered By: Al ycnanette Ahn on 10-05-2024 Platelets (Bld) [#/Vol] 226 10*3/uL 150-450 [facility] Potassium measurement (mass/ volume)Ordered By: Savita Ahn on 10-05-2024 Potassium (Unsp spec) [Mass/Vol] 4.2 mmol/L 3.3-5.1 [facility] RBC Auto (Bld) [#/Vol]Ordere d By: Savita Ahn on 10-05-2024 RBC (Bld) [#/Vol] 5.22 10*6/uL 4.2-5.4 [facility] Screening total cholesterol/ high density lipoprotein (HDL) cholesterol ratioOrdered By: Savita Ahn on 10-05-2024 Cholesterol.total/Darya sterol in HDL [Mass ratio] 7.08 {ratio} [facility] Serum creatinine measurement (mass/volume)Ordered By: Savita Ahn on 10-05-2024 Creatinine [Mass/Vol] 0.98 mg/dL 0.70-1.20 [facility] Serum globulin measurementOr dered By: Savita Ahn on 10-05-2024 Globulin (S) [Mass/Vol] 3.0 g/dL 2.2-4.2 [facility] Serum glucose measurement (m ass/volume)Ordered By: Savita Ahn on 10-05-2024 Glucose [Mass/Vol] 140 mg/dL High 70-99 [facility] Serum or plasma alanine corcoran otransferase (ALT) measurementOrdered By: Savita Ahn on 10-05-2024 ALT [Catalytic activity/Vol] 23 U/L <35 [facility] Serum or plasma albumin george urement (mass/volume)Ordered By: Savita Ahn on 10-05-2024 Albumin [Mass/Vol] 3.8 g/dL 3.5-5.0 [facility] Serum or plasma albumin/glob ulin mass ratioOrdered By: Savita Ahn on 10-05-2024 Albumin/Globulin [Mass ratio] 1.3 {ratio} 0.9-2.4 [facility] Serum or plasma alkaline yrn sphatase measurementOrdered By: Savita Ahn on 10-05-2024 ALP [Catalytic activity/Vol] 115 U/L High 35-104 [facility] Serum or plasma calcium george urement (mass/volume)Ordered By: Savita Ahn on 10-05-2024 Calcium [Mass/Vol] 9.1 mg/dL 7.6-11.0 [facility] Serum or plasma cholesterol in HDL measurement (mass/volume)Ordered By: Savita Ahn on 10-05-2024 Cholesterol in HDL [Mass/Vol] 24 mg/dL Low >40 [facility] Comment on above: National Cholesterol Education Program (NCEP) guidelines:<40 mg/dL: Low HDL-cholesterol (major risk factor for CHD)>= 60 mg/dL: High HDL-cholesterol (negative risk factor for CHD)HDL-cholesterol is affected by a number of factors, e.g. smoking, exercise, hormones, sex and age. Serum or plasma cholesterol measurement (mass/volume)Ordered By: Savita Ahn on 10-05-2024 Cholesterol [Mass/Vol] 167 mg/dL <201 [facility] Comment on above: Cholesterol level, D esirable <200 mg/dLBorderline high cholesterol 200-239 mg/dLHigh cholesterol >=240 mg/dLRecommendations of the NCEP Adult Treatment Panel for the following risk-cutoff thresholds for the [place] population. Serum or plasma urea nitroge n measurement (mass/volume)Ordered By: Savita Ahn on 10-05-2024 Urea nitrogen [Mass/Vol] 14 mg/dL 4-19 [facility] Sodium levelOrdered By: Jonathan Ahn on 10-05-2024 Sodium [Moles/Vol] 140 mmol/L 133-145 [facility] TSH DL <= 0.005 mIU/L QnOrde red By: Savita Ahn on 10-05-2024 TSH Qn 3.430 uIU/mL 0.300-4.200 [facility] Thyroid Stim Hormone (TSH)on 10-05-2024 TSH 3.430 uIU/mL Normal 0.300-4.200 [facility] Comment on above: Performed By: #### L 500.2500, L501.5200, L501.9520, L100.0100, L501.4020 #### [facility] [address] [place], [address] Total proteinOrdered By: Caio Ahn on 10-05-2024 Protein [Mass/Vol] 6.8 g/dL 5.9-8.4 [facility] Triglycerides measurementOrd ered By: Savita Ahn on 10-05-2024 Triglyceride [Mass/Vol] 268 mg/dL High <199 [facility] Comment on above: The drugs N-Acetylcy steine and Metamizole may falsely depress this assay. Normal range: <150 mg/dLBorderline High: 150-199 mg/dLHigh: 200-499 mg/dLVery High: >500 mg/dL White blood cell (WBC) count Ordered By: Savita Ahn on 10-05-2024 WBC (Bld) [#/Vol] 6.9 10*3/uL 4.4-11.0 [facility] Office Vis iton 10-03-2024 Internal Medicine Office Visit [facility] [place] [address] [place] [address] OFFICE VISIT Date of Service: 10/04/24 MR#: [id number] Acct: [id number] Name: FAUSTINA GLASGOW Rep #: [id number] : 1975 Provider: Dr. 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 Normal [facility] Ludivina 08-26-2024 DERIANN Telephone (NEURAV) FAUSTINA GLASGOW ([id number]) 1975 F Date Time Provider Department 08/26/24 ALEXX MACE During your visit today, we recorded the following information about you: Isidra Johnson 08/26/2024 12:33 PM Signed Patient doesn't have MyChart and is requesting a call back with there most recent lab results. Patient has been identified by name and birthdate. Duration of symptoms: N/A Person calling: self Call patient at: at home [phone] (home) [phone] (work) [phone] (cell) Was an appointment scheduled: No Closing statement: Results or non-symptom based questions: Thank you for calling [facility], your call will be returned within [...] Encounter Status:Closed by HANNAH PATTERSON on 08/26/24 Normal [facility] Ludivina 08-24-2024 [facility] Tele[facility] (NEURAV) FAUSTINA GLASGOW ([id number]) 1975 F Date Time Provider Department 08/24/24 ALEXX MACE During your visit today, we recorded the following information about you: Hannah Patterson LPN 08/24/2024 7:29 PM Signed 08/24/2024 Records received from [facility] for review by he has reviews and [...] Encounter Status:Closed by HANNAH PATTERSON on 08/24/24 Normal [facility] BY IFA WITH REFLEXOrdere d By: Jennifer Brice on 08-16-2024 Interpretation and review of laboratory results Normal [facility] Nuclear Ab Ql (S) Negative Negative [facility] Comment on above: Anti-nuclear antibod y test is used as an aid in diagnosis of systemic autoimmune diseases. Where positive and clinically warranted, follow-up using disease-specific testing is recommended. Low positive titers are not uncommon with advanced age, certain chronic infections, and malignancies among others. Test methodology: Indirect fluorescence immunoassay (IFA) using HEp-2 cells. [facility] IMMUNOFIXATION SCREEN, SERUM Ordered By: Natalio Ohara on 08-16-2024 MPA Result No M protein is identified. No M protein is identified. [facility] Staff Review (MPA) Reviewed by Roshan Mata MD, Ph.D ([id number]) [facility] Ludivina 08-15-2024 CNPN Telephone (NEURAV) FAUSTINA GLASGOW ([id number]) 1975 F Date Time Provider Department 08/15/24 [...] sent to pharmacy. Please send to [facility] in [place]. Patient has been identified by name and birthdate. Duration of symptoms: N/A Person calling: self Call patient at: on cell [phone] (home) [phone] (work) [phone] (cell) Was an appointment scheduled: No Closing statement: Results or non-symptom based questions: Thank you for calling [facility], your call will be returned within the next business day. Alexx More DO 08/15/2024 9:23 PM Signed Prescription has been sent as requested. Note is still in progress. Hannah Patterson LPN 08/17/2024 9:51 AM Signed 08/17/2024 Pharmacy called and this nurse verified Rx had been received and awaiting pick up man from patient. Hannah Patterson LPN Allergies As [...] Status:Closed by HANNAH PATTERSON on 08/16/24 Normal [facility] DARYL BY IFA WITH REFLEXon Nuclear Ab Ql (S) Negative Normal Negative [facility] Comment on above: Order Comment: Speci men Type: BLOOD SPECIMEN Ordering Facility: [facility] Address: [address] [place] [address] Result Comment: Anti -nuclear antibody test is used as an aid in diagnosis of systemic autoimmune diseases. Where positive and clinically warranted, follow-up using disease-specific testing is recommended. Low positive titers are not uncommon with advanced age, certain chronic infections, and malignancies among others. Test methodology: Indirect fluorescence immunoassay (IFA) using HEp-2 cells. Performed By: #### A NAIFR #### [facility] CLIA [id number] [address] [place], [place] [address] [address] [place] CNOVon 08-12-2024 CNOV Office Visit (NEURAV ) FAUSTINA GLASGOW ([id number]) 1975 F Date Time Provider Department 08/12/24 1:00 PM ALEXX MACE During your visit today, we recorded the following information about you: Pulse Blood pressure 80/minute 132/54 Alexx Mace, DO 08/21/2024 5:27 PM Signed [facility] New Patient Consultation August 12, 2024 ++ [...] of Sys (more content not included)... Normal [facility] IMMUNOFIXATION SCREEN, SERUM on 08-12-2024 MPA RESULT No M protein is identified. Normal No M protein is identified. [facility] Comment on above: Order Comment: Speci men Type: BLOOD SPECIMEN Ordering Facility: [facility] Address: [address] [place] [address] Performed By: #### I FESC #### [facility] CLIA [id number] [address] [place] [address] STAFF REVIEW (MPA) Reviewed by Roshan Mata MD, Ph.D ([id number]) [facility] Comment on above: Order Comment: Speci men Type: BLOOD SPECIMEN Ordering Facility: [facility] Address: [address] [place] [address] Performed By: #### I FESC #### [facility] CLIA [id number] [address] [place] [address] OF [place] 12 Lead EKGon 07-16-2024 12 Lead EKG [facility] Cardiovascular Services [address] [place] [address] 12 Lead EKG 07/16/24 0311 MR#: [id number] Acct: [id number] Name: FAUSTINA GLASGOW Rep #: [id number] : 1975 49 From: Natalio Brice MD [...] rhythm Normal ECG Confirmed by Natalio Brice ([id number]), continuity editor BIGG MORILLO ([id number]) on 07/18/2024 9:02:33 AM Referred By: AR Confirmed By: Natalio Brice 07/18/24901 Date Natalio Brice MD CC: Dr. Adal Dempsey MD; Dr. Savita Ahn MD Signed Normal [facility] Absolute lymphocyte countOrd ered By: Adal Dempsey on 07-16-2024 Lymphocytes Auto (Unsp spec) [#/Vol] 3.70 10*3/uL 0.83-4.51 [facility] Absolute neutrophil countOrd ered By: Adal Dempsey on 07-16-2024 Neutrophils (Bld) [#/Vol] 5.5 10*3/uL 2.0-7.7 [facility] Anion gap in Serum or Plasma Ordered By: Adal Dempsey on 07-16-2024 Anion gap [Moles/Vol] 13 mmol/L 5- [facility] Automated lymphocyte count a s percentage of total leukocytesOrdered By: Adal Dempsey on 07-16-2024 Lymphocytes/100 WBC Auto (Unsp spec) 37.9 % - [facility] BUN/creatinine ratioOrdered By: Adal Dempsey on 07-16-2024 Urea nitrogen/Creatinine [Mass ratio] 9.8 mg/mg Low 12-26 [facility] Basic Metabolic Profile (BMP )on 07-16-2024 BUN/CRE 9.8 RATIO Low 12-26 [facility] Comment on above: Performed By: #### L 500.2500, L501.5200, L501.9520, L100.0100, L501.4020 #### [facility] [address] [place], [address] Calcium [Mass/Vol] 9.2 mg/dL Normal 7.6-11.0 [facility] Comment on above: Performed By: #### L 500.2500, L501.5200, L501.9520, L100.0100, L501.4020 #### [facility] [address] [place], [address] Chloride [Moles/Vol] 103 mmol/L Normal 98-108 [facility] Comment on above: Performed By: #### L 500.2500, L501.5200, L501.9520, L100.0100, L501.4020 #### [facility] [address] [place], [address] CO2 [Moles/Vol] 21.9 mmol/L Normal 21.0-32.0 [facility] Comment on above: Performed By: #### L 500.2500, L501.5200, L501.9520, L100.0100, L501.4020 #### [facility] [address] [place], [address] Creatinine [Mass/Vol] 0.91 mg/dL Normal 0.70-1.20 [facility] Comment on above: Performed By: #### L 500.2500, L501.5200, L501.9520, L100.0100, L501.4020 #### [facility] [address] [place], [address] ECRCL 82.99 ml/min Normal 50-250 [facility] Comment on above: Performed By: #### L 500.2500, L501.5200, L501.9520, L100.0100, L501.4020 #### [facility] [address] [place], [address] GAP 13 Normal 5-15 [facility] Comment on above: Performed By: #### L 500.2500, L501.5200, L501.9520, L100.0100, L501.4020 #### [facility] [address] [place], [address] GFR/1.73 sq M.predicted among non-blacks MDRD (S/P/Bld) [Vol rate/Area] 77 mL/min/{1.73_m2} Normal >60 [facility] Comment on above: Result Comment: mL/m in/1.73m2 CKD-EPI Creatinine Equation (2020) Performed By: #### L 500.2500, L501.5200, L501.9520, L100.0100, L501.4020 #### [facility] [address] [place], [address] Glucose [Mass/Vol] 203 mg/dL High 70-99 [facility] Comment on above: Performed By: #### L 500.2500, L501.5200, L501.9520, L100.0100, L501.4020 #### [facility] [address] [place], [address] Potassium [Moles/Vol] 4.0 mmol/L Normal 3.3-5.1 [facility] Comment on above: Performed By: #### L 500.2500, L501.5200, L501.9520, L100.0100, L501.4020 #### [facility] [address] [place], [address] Sodium [Moles/Vol] 138 mmol/L Normal 133-145 [facility] Comment on above: Performed By: #### L 500.2500, L501.5200, L501.9520, L100.0100, L501.4020 #### [facility] [address] [place], [address] Urea nitrogen [Mass/Vol] 9 mg/dL Normal 4-19 [facility] Comment on above: Performed By: #### L 500.2500, L501.5200, L501.9520, L100.0100, L501.4020 #### [facility] [address] [place], [address] Basophil percentageOrdered B y: Adal Dempsey on 07-16-2024 Basophils/100 WBC (Bld) 0.4 % 0-1 [facility] CBC W/Diff, Automatedon 07-07 0-2024 Absolute Lymph 3.70 X10 3/uL Normal 0.83-4.51 [facility] Comment on above: Performed By: #### L 500.2500, L501.5200, L501.9520, L100.0100, L501.4020 #### [facility] [address] [place], [address] Absolute Neut 5.5 X10 3/uL Normal 2.0-7.7 [facility] Comment on above: Performed By: #### L 500.2500, L501.5200, L501.9520, L100.0100, L501.4020 #### [facility] [address] [place], [address] Basophils/100 WBC (Bld) 0.4 % Normal 0-1 [facility] Comment on above: Performed By: #### L 500.2500, L501.5200, L501.9520, L100.0100, L501.4020 #### [facility] [address] [place], [address] Eosinophils/100 WBC (Bld) 1.3 % Normal 0-5 [facility] Comment on above: Performed By: #### L 500.2500, L501.5200, L501.9520, L100.0100, L501.4020 #### [facility] [address] [place], [address] Erythrocyte distribution width (RBC) [Ratio] 14.6 % Normal 11.6-14.6 [facility] Comment on above: Performed By: #### L 500.2500, L501.5200, L501.9520, L100.0100, L501.4020 #### [facility] [address] [place], [address] Hematocrit (Bld) [Volume fraction] 46.0 % Normal 37-47 [facility] Comment on above: Performed By: #### L 500.2500, L501.5200, L501.9520, L100.0100, L501.4020 #### [facility] [address] [place], [address] Hemoglobin (Bld) [Mass/Vol] 15.2 g/dL High 12.0-15.0 [facility] Comment on above: Performed By: #### L 500.2500, L501.5200, L501.9520, L100.0100, L501.4020 #### [facility] [address] [place], [address] IG% 0.600 Normal 0.0-0.9 [facility] Comment on above: Result Comment: IG% - Immature Granulocytes (promyelocytes, myelocytes and metamyelocytes) > 1% indicates that a LEFT SHIFT is Present. Performed By: #### L 500.2500, L501.5200, L501.9520, L100.0100, L501.4020 #### [facility] [address] [place], [address] Lymphocytes/100 WBC (Bld) 37.9 % Normal 19-41 [facility] Comment on above: Performed By: #### L 500.2500, L501.5200, L501.9520, L100.0100, L501.4020 #### [facility] [address] [place], [address] MCH (RBC) [Entitic mass] 27.6 pg Normal 27.0-32.0 [facility] Comment on above: Performed By: #### L 500.2500, L501.5200, L501.9520, L100.0100, L501.4020 #### [facility] [address] [place], [address] MCHC (RBC) [Mass/Vol] 33.0 g/dL Normal 32-36 [facility] Comment on above: Performed By: #### L 500.2500, L501.5200, L501.9520, L100.0100, L501.4020 #### [facility] [address] [place], [address] MCV (RBC) [Entitic vol] 83.5 fL Normal 81-99 [facility] Comment on above: Performed By: #### L 500.2500, L501.5200, L501.9520, L100.0100, L501.4020 #### [facility] [address] [place], [address] Monocytes/100 WBC (Bld) 3.6 % Normal 0-10 [facility] Comment on above: Performed By: #### L 500.2500, L501.5200, L501.9520, L100.0100, L501.4020 #### [facility] [address] [place], [address] Neutrophils/100 WBC (Bld) 56.2 % Normal 47-70 [facility] Comment on above: Performed By: #### L 500.2500, L501.5200, L501.9520, L100.0100, L501.4020 #### [facility] [address] [place], [address] Nucleated RBC (Bld) [#/Vol] 0 10*3/uL Normal 0-5 [facility] Comment on above: Performed By: #### L 500.2500, L501.5200, L501.9520, L100.0100, L501.4020 #### [facility] [address] [place], [address] Platelet mean volume (Bld) [Entitic vol] 10.8 fL Normal 6.2-12.0 [facility] Comment on above: Performed By: #### L 500.2500, L501.5200, L501.9520, L100.0100, L501.4020 #### [facility] [address] [place], [address] Platelets (Bld) [#/Vol] 258 10*3/uL Normal 150-450 [facility] Comment on above: Performed By: #### L 500.2500, L501.5200, L501.9520, L100.0100, L501.4020 #### [facility] [address] [place], [address] RBC (Bld) [#/Vol] 5.51 10*6/uL High 4.2-5.4 [facility] Comment on above: Performed By: #### L 500.2500, L501.5200, L501.9520, L100.0100, L501.4020 #### [facility] [address] [place], [address] RDW SD 44.2 fl High 35.1-43.9 [facility] Comment on above: Performed By: #### L 500.2500, L501.5200, L501.9520, L100.0100, L501.4020 #### [facility] [address] [place], [address] WBC (Bld) [#/Vol] 9.8 10*3/uL Normal 4.4-11.0 [facility] Comment on above: Performed By: #### L 500.2500, L501.5200, L501.9520, L100.0100, L501.4020 #### [facility] [address] [place], [address] Carbon dioxide, total [Moles /volume] in Central venous bloodOrdered By: Adal Dempsey on 07-16-2024 CO2 [Moles/Vol] 21.9 mmol/L 21.0-32.0 [facility] Chest 1 View (Portable)on Chest 1 View (Portable) [facility] Imaging Services [address] [place] [address] Chest 1 View (Portable) MR#: [id number] Acct: [id number] Name: FAUSTINA GLASGOW Rep #: [id number] : 1975 F 49 From: Nick Obrien MD PCP: Dr. Savita Ahn MD Status: PRE ER Study: Chest 1 View (Portable) Date of Exam: 07/16/24 Exam# [id number] Ordering Dr: Adal Dempsey MD PROCEDURE: CHEST 1 VIEW (PORTABLE) 07/16/2024 REASON FOR EXAM: CHEST PAIN TECHNIQUE: Frontal view of the chest. COMPARISON: 01/01/2024 FINDINGS: The lungs appear clear. Pulmonary vascularity appears within limits. No pleural effusion. Cardiac and mediastinal contours appear within limits. The visualized osseous structures appear within limits. RAD/Chest 1 View (Portable) IMPRESSION: No evidence of acute disease. Reading Location: [facility] CC: Dr. Adal Dempsey MD; Dr. Savita Ahn MD Manager Of Program: Signed Normal [facility] Chloride assayOrdered By: Kee Dempsey on 07-16-2024 Chloride [Moles/Vol] 103 mmol/L 98-108 [facility] Emergency Department Summary on 07-16-2024 Emergency Department Summary [facility] Medical Records Department [address] [place] [address] Emergency Department Summary 07/16/24 MR#: [id number] Acct: [id number] Name: FAUSTINA GLASGOW Rep #: [id number] : 1975 49 From: Adal Dempsey MD [...] last few days. She is a smoker. [facility] Medical History Seizure disorder Meningioma [...] pneumonia versu (more content not included)... Normal [facility] Eosinophil percentageOrdered By: Adal Dempsey on 07-16-2024 Eosinophils/100 WBC (Bld) 1.3 % 0-5 [facility] Erythrocyte distribution wid th ratioOrdered By: Adal Dempsey on 07-16-2024 Erythrocyte distribution width (RBC) [Ratio] 14.6 % 11.6-14.6 [facility] Erythrocyte distribution wid th standard deviationOrdered By: Adal Dempsey on 07-16-2024 Erythrocyte distribution width (RBC) [Ratio] 44.2 fl High 35.1-43.9 [facility] Glomerular filtration rate ( GFR) estimation/1.73 sq m using serum, plasma, or whole bOrdered By: Adal Dempsey on 07-16-2024 GFR/1.73 sq M.predicted among non-blacks MDRD (S/P/Bld) [Vol rate/Area] 77 mL/min/{1.73_m2} >60 [facility] Comment on above: mL/min/1.73m2 CKD-EP I Creatinine Equation (2020) Hematocrit Auto (Bld) [Volum e fraction]Ordered By: Adal Dempsey on 07-16-2024 Hematocrit (Bld) [Volume fraction] 46.0 % 37-47 [facility] Hemoglobin measurementOrdere d By: Adal Dempsey on 07-16-2024 Hemoglobin (Bld) [Mass/Vol] 15.2 g/dL High 12.0-15.0 [facility] Immature granulocytes/100 WB C Auto (Bld)Ordered By: Adal Dempsey on 07-16-2024 Immature granulocytes/100 WBC (Bld) 0.600 % 0.0-0.9 [facility] Comment on above: IG% - Immature Granu locytes (promyelocytes, myelocytes and metamyelocytes) > 1% indicates that a LEFT SHIFT is Present. L499.0042on 07-16-2024 Trop T High Sen < 6 Normal <=14 [facility] Comment on above: Performed By: #### L 500.2500, L501.5200, L501.9520, L100.0100, L501.4020 #### [facility] [place], [place], [id number] L501.4021on 07-16-2024 Trop T High Sen 6 ng/L Normal <=14 [facility] Comment on above: Performed By: #### L 500.2500, L501.5200, L501.9520, L100.0100, L501.4020 #### [facility] [address] [place], [address] MCV (mean corpuscular volume ) determinationOrdered By: Adal Dempsey on 07-16-2024 MCV (RBC) [Entitic vol] 83.5 fL 81-99 [facility] Mean corpuscular hemoglobin (MCH) determinationOrdered By: Adal Dempsey on 07-16-2024 MCH (RBC) [Entitic mass] 27.6 pg 27.0-32.0 [facility] Mean corpuscular hemoglobin concentration (MCHC) determinationOrdered By: Adal Dempsey on 07-16-2024 MCHC (RBC) [Mass/Vol] 33.0 g/dL 32-36 [facility] Mean platelet volume determi nationOrdered By: Adal Dempsey on 07-16-2024 Platelet mean volume (Bld) [Entitic vol] 10.8 fL 6.2-12.0 [facility] Monocyte percentageOrdered B y: Adal Dempsey on 07-16-2024 Monocytes/100 WBC (Bld) 3.6 % 0-10 [facility] Neutrophil percentageOrdered By: Adal Dempsey on 07-16-2024 Neutrophils/100 WBC (Bld) 56.2 % 47-70 [facility] Nucleated red blood cell per centageOrdered By: Adal Dempsey on 07-16-2024 Nucleated RBC/100 WBC (Bld) [Ratio] 0 % 0-5 [facility] Platelet countOrdered By: Kee Dempsey on 07-16-2024 Platelets (Bld) [#/Vol] 258 10*3/uL 150-450 [facility] Potassium measurement (mass/ volume)Ordered By: Adal Dempsey on 07-16-2024 Potassium (Unsp spec) [Mass/Vol] 4.0 mmol/L 3.3-5.1 [facility] RBC Auto (Bld) [#/Vol]Ordere d By: Adal Dempsey on 07-16-2024 RBC (Bld) [#/Vol] 5.51 10*6/uL High 4.2-5.4 [facility] Serum creatinine measurement (mass/volume)Ordered By: Adal Dempsey on 07-16-2024 Creatinine [Mass/Vol] 0.91 mg/dL 0.70-1.20 [facility] Serum glucose measurement (m ass/volume)Ordered By: Adal Dempesy on 07-16-2024 Glucose [Mass/Vol] 203 mg/dL High 70-99 [facility] Serum or plasma calcium george urement (mass/volume)Ordered By: Adal Dempsey on 07-16-2024 Calcium [Mass/Vol] 9.2 mg/dL 7.6-11.0 [facility] Serum or plasma urea nitroge n measurement (mass/volume)Ordered By: Adal Dempsey on 07-16-2024 Urea nitrogen [Mass/Vol] 9 mg/dL 4-19 [facility] Sodium levelOrdered By: Adal Dempsey on 07-16-2024 Sodium [Moles/Vol] 138 mmol/L 133-145 [facility] Troponin T.cardiac [Mass/vol ume] in Serum or Plasma by High sensitivity methodOrdered By: Adal Dempsey on 07-16-2024 Troponin T.cardiac High sensitivity method [Mass/Vol] < 6 ng/L <14 [facility] Troponin T.cardiac High sensitivity method [Mass/Vol] 6 ng/L <14 [facility] White blood cell (WBC) count Ordered By: Adal Dempsey on 07-16-2024 WBC (Bld) [#/Vol] 9.8 10*3/uL 4.4-11.0 [facility] PT D/C Summary (1)on 025 PT D/C Summary (1) [facility] Physical Therapy [address] [place] [address] / REHABILITATION SERVICES DISCHARGE SUMMARY MR#: [id number] Acct: [id number] Name: FAUSTINA GLASGOW Rep #: [id number] : 1975 49 From: Fredo Sepulveda DPT, OCS, CSCS Referring DrPriscila: Dr. Savita Ahn MD Status: R EG RCR Insurance: [facility] SELF PAY INSURANCE Discharge Summary D/C [...] please feel free to call me at [phone]. Thank you for the referral of this patient. Sincerely, Fredo Sepulveda, DPT, OCS, CSCS Balance/Gait/Functiona l tests Balance/Special Test Scores Oswestry Low Back Score: 17 Improvement % Improvement: 3 07/14/24 1604 CC: Dr. Savita Ahn MD EBG Signed Normal [facility] PARNEOon 06-25-2024 AGNA-1 Negative Normal Negative [facility] Comment on above: Result Comment: This test was developed and its performance characteristics determined by [facility]. It has not been cleared or approved by the Food and Drug Administration. Performed By: #### M DW, GFR, ANEU, TROPHS, CBC, BMP, ADIFF #### [place] [address] Amphiphysin Ab Negative Normal Negative [facility] Comment on above: Result Comment: This test was developed and its performance characteristics determined by [facility]. It has not been cleared or approved by the Food and Drug Administration. Performed By: #### M DW, GFR, ANEU, TROPHS, CBC, BMP, ADIFF #### [address] [address] Antineuronal nuclear Ab Type 3 Negative Normal Negative [facility] Comment on above: Result Comment: This test was developed and its performance characteristics determined by [facility]. It has not been cleared or approved by the Food and Drug Administration. Performed By: #### M DW, GFR, ANEU, TROPHS, CBC, BMP, ADIFF #### [place] [address] CASPR2 Ab IFA Negative Normal Negative [facility] Comment on above: Result Comment: This test was developed and its performance characteristics determined by [facility]. It has not been cleared or approved by the Food and Drug Administration. Performed By: #### M DW, GFR, ANEU, TROPHS, CBC, BMP, ADIFF #### [place] [address] CRMP-5 IgG Negative Normal Negative [facility] Comment on above: Result Comment: This test was developed and its performance characteristics determined by [facility]. It has not been cleared or approved by the Food and Drug Administration. Performed By: #### M DW, GFR, ANEU, TROPHS, CBC, BMP, ADIFF #### [place] [address] Hu Ab IFA Negative Normal Negative [facility] Comment on above: Result Comment: This test was developed and its performance characteristics determined by [facility]. It has not been cleared or approved by the Food and Drug Administration. Performed By: #### M DW, GFR, ANEU, TROPHS, CBC, BMP, ADIFF #### [place] [address] Interp Paraneo Negative Normal Negative [facility] Comment on above: Result Comment: A ne gative paraneoplastic autoantibody result does not rule out all clinically relevant antibodies. If indicated, a phenotype-specific profile (For example, Encephalopathy, dementia, myelopathy, or axonal neuropathy) should be considered. Performed By: #### M DW, GFR, ANEU, TROPHS, CBC, BMP, ADIFF #### [place] [address] LGI1 Ab CBA IFA Negative Normal Negative [facility] [facility] Comment on above: Result Comment: This test was developed and its performance characteristics determined by [facility]. It has not been cleared or approved by the Food and Drug Administration. Performed At: [address] [id number] Richar Leyva MD Ph:[phone] Performed By: #### M DW, GFR, ANEU, TROPHS, CBC, BMP, ADIFF #### [place] [address]22877 Purkinje Cell Cyto Ab Type 2 Negative Normal Negative [facility] Comment on above: Result Comment: This test was developed and its performance characteristics determined by [facility]. It has not been cleared or approved by the Food and Drug Administration. Performed By: #### M DW, GFR, ANEU, TROPHS, CBC, BMP, ADIFF #### [place] [address] Purkinje Cell Cyto Ab Type Tr Negative Normal Negative [facility] Comment on above: Result Comment: This test was developed and its performance characteristics determined by [facility]. It has not been cleared or approved by the Food and Drug Administration. Performed By: #### M DW, GFR, ANEU, TROPHS, CBC, BMP, ADIFF #### [address] [address] Ri Ab IFA Negative Normal Negative [facility] Comment on above: Result Comment: This test was developed and its performance characteristics determined by [facility]. It has not been cleared or approved by the Food and Drug Administration. Performed By: #### M DW, GFR, ANEU, TROPHS, CBC, BMP, ADIFF #### [address] [address] VGCC Ab <1.0 Normal 0.0-30.0 [facility] Comment on above: Performed By: #### M DW, GFR, ANEU, TROPHS, CBC, BMP, ADIFF #### [address] [address] Yo Ab IFA Negative Normal Negative [facility] Comment on above: Result Comment: This test was developed and its performance characteristics determined by [facility]. It has not been cleared or approved by the Food and Drug Administration. Performed By: #### M DW, GFR, ANEU, TROPHS, CBC, BMP, ADIFF #### [address] [address] ANCAon 06-13-2024 C-ANCA 2.1 Normal 0.0-20.0 [facility] Comment on above: Result Comment: NEW REFERENCE RANGES FOR ANCA BY EIA: NEGATIVE <= 20 UNITS WEAK POSITIVE 21 - 30 UNITS MOD. TO STRONG POSITIVE > 30 UNITS A positive result indicates the presence of IA-3 antibodies and suggests the possibility of certain autoimmune vasculitides such as Diana???s granulomatosis. A negative result indicates no IA-3 antibody or levels below the negative cut-off of the assay. These results were obtained with the Opzi QUANTA Lite IA-3 IgG JEFF. IA-3 values obtained with different manufacturers??? assay methods may not be used interchangeably. The magnitude of the reported IgG level cannot be correlated to an endpoint titer. Results of this assay should be used in conjunction with clinical findings. Performed By: #### F OL, HCV1, HBSAG, RF, ANCA, B12 ####[place] [address]#### 776993, 929332, ANAIFS, 501243, 983034, 027328 ####[address] [address] Cytoplasmic Neutro. Ab. See Below Normal A [facility] Comment on above: Performed By: #### F OL, HCV1, HBSAG, RF, ANCA, B12 ####[place] [address]#### 264209, 978980, ANAIFS, 690249, 889964, 319311 ####[place] [address] P-ANCA 1.0 Normal 0.0-20.0 [facility] Comment on above: Result Comment: REFE [...] assay. These results were obtained with the [employer] QUANTA Lite MPO IgG JEFF. MPO values obtained with different manufacturers??? assay methods may not be used interchangeably. The magnitude of the reported IgG level cannot be correlated to an endpoint titer. Results of this assay should be used in conjunction with clinical findings. Performed By: #### F OL, HCV1, HBSAG, RF, ANCA, B12 ####[place] [address]#### 417752, 213777, ANAIFS, 157541, 713890, 702079 ####[place] [id number] CUSon 06-11-2024 Copper Lvl 79 UG/DL Low 80-158 [facility] Comment on above: Result Comment: This test was developed and its performance characteristics determined by [facility]. It has not been cleared or approved by the Food and Drug Administration. Detection Limit = 5 Performed At: [address] [id number] Richar Leyva MD Ph:[phone] Performed By: #### F OL, HCV1, HBSAG, RF, ANCA, B12 ####[place] [address]#### 644962, 691084, ANAIFS, 546952, 561523, 539129 ####[place] [address]3452 [place] [address] QZGA7ae 06-10-2024 Vitamin B6 Lvl 4.5 UG/L Normal 3.4-65.2 [facility] Comment on above: Result Comment: This test was developed and its performance characteristics determined by [facility]. It has not been cleared or approved by the Food and Drug Administration. Deficiency: <3.4 Marginal: 3.4 - 5.1 Adequate: >5.1 Performed At: [address] [id number] Richar Leyva MD Ph:[phone] Performed By: #### F OL, HCV1, HBSAG, RF, ANCA, B12 ####[place] [address]#### 237107, 947892, ANAIFS, 282822, 212338, 656465 ####[place] [address]34[address] [place] [address] ANAIFSon 06-09-2024 Antinuclear Ab Pattern Cytoplasmic fibri llar filamentous Normal [facility] Comment on above: Result Comment: Perf ormed By: [facility] [email or web address] [address] [place] [address] Small Business Sales Representative: Fernando Rodriguez III#: [id number] Performed By: #### F OL, HCV1, HBSAG, RF, ANCA, B12 ####[place] [address]#### 582627, 681670, ANAIFS, 354927, 559791, 348245 ####[place] [address] [place] [address] Antinuclear Ab Screen Positive Abnormal Negative [facility] Comment on above: Result Comment: Anti -nuclear antibody test is used as an aid in diagnosis of systemic autoimmune diseases. Where positive and clinically warranted, follow-up using disease-specific testing is recommended. Low positive titers are not uncommon with advanced age, certain chronic infections, and malignancies among others. Test methodology: Indirect fluorescence immunoassay (IFA) using HEp-2 cells. Performed By: [place] [address] Small Business Sales Representative: Dave Diaz III, M.D. CLIA#: [id number] Performed By: #### F OL, HCV1, HBSAG, RF, ANCA, B12 ####[place] [address]#### 094698, 381462, ANAIFS, 098359, 455211, 456578 ####[place] [address] [place] [address] Antinuclear Ab Titer 1:80 Normal [facility] Comment on above: Result Comment: Perf ormed By: [place] [address] Small Business Sales Representative: Dave Diaz III, M.D. CLIA#: [id number] Performed By: #### F OL, HCV1, HBSAG, RF, ANCA, B12 ####[place] [address]#### 378376, 427198, ANAIFS, 274840, 924921, 792997 ####[place] [address] [place] [address] RFon 06-09-2024 Rheumatoid Factor <6.0 Normal <=5.9 [facility] Comment on above: Result Comment: RF [...] tests. These results were obtained with the [employer] Laboratory[employer] Lite RF IgM JEFF. RF IgM values obtained with different manufacturers' assay methods may not be used interchangeably. The magnitude of the reported IgM levels cannot be correlated to an endpoint titer. Performed By: #### F OL, HCV1, HBSAG, RF, ANCA, B12 ####[place] [address]#### 063596, 098472, ANAIFS, 990375, 668016, 467118 ####[place] [address] HCVon 06-08-2024 Hep C Ab Non-Reactive Normal Non-Reactive [facility] Comment on above: Performed By: #### F OL, HCV1, HBSAG, RF, ANCA, B12 ####[place] [address]#### 990423, 608685, ANAIFS, 467681, 493325, 895787 ####[place] [address] Hep C Ab Int Normal [facility] Comment on above: Result Comment: Nonr [...] F OL, HCV1, HBSAG, RF, ANCA, B12 ####[place] [address]#### 827743, 963638, ANAIFS, 579739, 263484, 473210 ####[place] [address] [place] [address] LMERLYon 06-08-2024 Lyme Total Antibody AHKIL Negative Normal Negative [facility] Comment on above: Result Comment: [...] to 14 days is recommended. Performed At: [address] [place] [id number] Hayde Mace PhD Ph:[phone] Performed By: #### F OL, HCV1, HBSAG, RF, ANCA, B12 ####[place] [address]#### 300562, 761410, ANAIFS, 149081, 771352, 212187 ####[place] [id number] SSABon 06-08-2024 Sjogrens SSA Ab <0.2 Normal 0.0-0.9 [facility] Comment on above: Performed By: #### F OL, HCV1, HBSAG, RF, ANCA, B12 ####[place] [address]#### 858880, 591421, ANAIFS, 307309, 775507, 531018 ####[place] [address] Sjogrens SSB Ab <0.2 Normal 0.0-0.9 [facility] Comment on above: Result Comment: Perf ormed At: [facility] [address] [id number] Hayde Mace PhD Ph:[phone] Performed By: #### F OL, HCV1, HBSAG, RF, ANCA, B12 ####[place] [address]#### 009417, 290556, ANAIFS, 691772, 222411, 807315 ####[place] [id number] B12on 06-07-2024 Cobalamin (Vitamin B12) [Mass/Vol] 699 pg/mL Normal 211-911 [facility] Comment on above: Performed By: #### F OL, HCV1, HBSAG, RF, ANCA, B12 #### [place] [address] #### 7432[address], 414815, ANAIFS, 142119, 746677, 267571 #### [address] [address] FOLon 06-07-2024 Folate 5.21 ng/mL Low 5.38-24.00 [facility] Comment on above: Performed By: #### F OL, HCV1, HBSAG, RF, ANCA, B12 ####[place] [address] [place] [address]#### 883701, 252007, ANAIFS, 656270, 214757, 853131 ####[facility] [place], [place] [address] HBSAGon 06-07-2024 Hep B Surf Ag Non-Reactive Normal Non-Reactive [facility] Comment on above: Performed By: #### F OL, HCV1, HBSAG, RF, ANCA, B12 ####[address] [address]#### 500838, 297254, ANAIFS, 468065, 107663, 979090 ####[place] [address] [place], [place] [address] Inital Evaluation (1) - PTon 05-02-2024 Inital Evaluation (1) - PT [facility] [address] [place] [address] [address] [place] [address] / REHABILITATION SERVICES INITIAL EVALUATION MR#: [id number] Acct: [id number] Name: FAUSTINA GLASGOW Rep #: [id number] : 1975 48 From: Fredo Sepulveda DPT, CARMEL, CSCS Referring Dr.: Dr. Savita Ahn MD Status: R EG RCR Insurance: [facility] SELF PAY INSURANCE Patient's Visit Information Visit Information Visit Information: FAUSTINA GLASGOW is a 48 year old F referred to Physical Therapy by Dr. Savita Ahn MD with a diagnosis of LBP with B sciatica. Date of Evaluation: 05/02/24 Physical Therapist: Fredo Sepulveda DPT, OCS, CSCS Visit Plan Frequency: 2x /Week [...] Hobbies: bingo, No regular exercises: Onffet at [employer] until last August. Pain LBP: Pain Intensity [...] to be FAXED BACK to us at [phone] for Medicare purposes. For Medicare only, by signing this I certify the plan of care. Please let me know if there are questions or concerns regarding this plan of care. Physician Signature: Date:__ 05/02/24 1446 CC: Dr. Savita Ahn MD LUIS Signed Normal [facility] Internal Medicine Office Vis amy 04-25-2024 Internal Medicine Office Visit [facility] [place] [address] [place] [address] OFFICE VISIT Date of Service: 04/26/24 MR#: [id number] Acct: [id number] Name: FAUSTINA GLASGOW Rep #: [id number] : 1975 Provider: Dr. Savita harris MD Age/Sex: 48/F Location: [facility] Status: Signed Intake Vital Signs 01/01/24 18:47 [...] Reasons: MED FOLLOW UP Chief Complaint: fu Organ Recovery Coordinator Required: No Accompanied by: Self Is patient [...] it help (more content not included)... Normal [facility] Serum or plasma thyroid stim ulating hormone (TSH) measurement (units/volume)Ordered By: Savita Ahn on 04-25-2024 TSH Qn 4.410 uIU/mL High 0.358-3.740 [facility] Thyroid Stim Hormone (TSH)on 04-25-2024 TSH 4.410 uIU/mL High 0.358-3.740 [facility] Comment on above: Performed By: #### L 500.2500, L501.5200, L501.9520, L100.0100, L501.4020 #### [facility] [address] [place], [address] MRI BRAIN W/ + W/O CONTRASTo n [...] 02/10/2024 3:37:23 PM Ordering Provider: KARY GALINDO [facility] 12 Lead EKGon 01-01-2024 12 Lead EKG [facility] Services [address] [place] [address] 12 Lead EKG 01/01/24 1854 MR#: [id number] Acct: [id number] Name: FAUSTINA GLASGOW Rep #: [id number] : 1975 48 From: Roel Greene MD [...] Normal sinus rhythm Normal ECG Confirmed by JOHANA WONG, ROEL ([id number]), continuity editor KELLY VINCENT ([id number]) on 01/04/2024 9:27:27 AM Referred By: Confirmed By:ROEL GREENE MD 01/04/2427 Date Roel Greene MD CC: Dr. Savita Ahn MD; Dr. Thanh Mcdonald DO Signed Normal [facility] Basic Metabolic Profile (BMP )on 01-01-2024 BUN/CRE 12.3 RATIO Normal 12-26 [facility] Comment on above: Order Comment: 'TROP ' Serial specimen #1, #2 or #3: 1 Performed By: #### L 500.2500, L501.5200, L501.9520, L100.0100, L501.4020 #### [facility] [address] [place], [address] CA,Total 9.3 mg/dL Normal 8.5-10.1 [facility] Comment on above: Order Comment: 'TROP ' Serial specimen #1, #2 or #3: 1 Performed By: #### L 500.2500, L501.5200, L501.9520, L100.0100, L501.4020 #### [facility] [address] [place], [address] Chloride [Moles/Vol] 110 mmol/L High 98-107 [facility] Comment on above: Order Comment: 'TROP ' Serial specimen #1, #2 or #3: 1 Performed By: #### L 500.2500, L501.5200, L501.9520, L100.0100, L501.4020 #### [facility] [address] [place], [address] CO2 [Moles/Vol] 27.0 mmol/L Normal 21.0-32.0 [facility] Comment on above: Order Comment: 'TROP ' Serial specimen #1, #2 or #3: 1 Performed By: #### L 500.2500, L501.5200, L501.9520, L100.0100, L501.4020 #### [facility] [address] [place], [address] Creatinine [Mass/Vol] 0.89 mg/dL Normal 0.55-1.02 [facility] Comment on above: Order Comment: 'TROP ' Serial specimen #1, #2 or #3: 1 Result Comment: The validity of the calculated GFR GFRAA in patients over 70 years has not been determined. Clinical correlation is essential. Performed By: #### L 500.2500, L501.5200, L501.9520, L100.0100, L501.4020 #### [facility] [address] [place], [address] ECRCL 80.99 ml/min Normal [facility] Comment on above: Order Comment: 'TROP ' Serial specimen #1, #2 or #3: 1 Performed By: #### L 500.2500, L501.5200, L501.9520, L100.0100, L501.4020 #### [facility] [address] [place], [address] EST GFR - AA 86 mL/min Normal >60 [facility] Comment on above: Order Comment: 'TROP ' Serial specimen #1, #2 or #3: 1 Result Comment: Afri can [place] GFR Calc Performed By: #### L 500.2500, L501.5200, L501.9520, L100.0100, L501.4020 #### [facility] [address] [place], [address] GAP 5 Normal 5-15 [facility] Comment on above: Order Comment: 'TROP ' Serial specimen #1, #2 or #3: 1 Performed By: #### L 500.2500, L501.5200, L501.9520, L100.0100, L501.4020 #### [facility] [address] [place], [address] GFR/1.73 sq M.predicted among non-blacks MDRD (S/P/Bld) [Vol rate/Area] 71 mL/min/{1.73_m2} Normal >60 [facility] Comment on above: Order Comment: 'TROP ' Serial specimen #1, #2 or #3: 1 Result Comment: Non- GFR Calc Performed By: #### L 500.2500, L501.5200, L501.9520, L100.0100, L501.4020 #### [facility] [address] [place], [address] Glucose [Mass/Vol] 87 mg/dL Normal 74-106 [facility] Comment on above: Order Comment: 'TROP ' Serial specimen #1, #2 or #3: 1 Performed By: #### L 500.2500, L501.5200, L501.9520, L100.0100, L501.4020 #### [facility] [address] [place], [address] Potassium [Moles/Vol] 3.8 mmol/L Normal 3.5-5.1 [facility] Comment on above: Order Comment: 'TROP ' Serial specimen #1, #2 or #3: 1 Performed By: #### L 500.2500, L501.5200, L501.9520, L100.0100, L501.4020 #### [facility] [address] [place], [address] Sodium [Moles/Vol] 141 mmol/L Normal 136-145 [facility] Comment on above: Order Comment: 'TROP ' Serial specimen #1, #2 or #3: 1 Performed By: #### L 500.2500, L501.5200, L501.9520, L100.0100, L501.4020 #### [facility] [address] [place], [address] Urea nitrogen [Mass/Vol] 11 mg/dL Normal 7-18 [facility] Comment on above: Order Comment: 'TROP ' Serial specimen #1, #2 or #3: 1 Performed By: #### L 500.2500, L501.5200, L501.9520, L100.0100, L501.4020 #### [facility] [address] [place], [address] CBC W/Diff, Automatedon 12-08 Absolute Lymph 2.93 X10 3/uL Normal 0.83-4.51 [facility] Comment on above: Performed By: #### L 500.2500, L501.5200, L501.9520, L100.0100, L501.4020 #### [facility] [address] [place], [address] Absolute Neut 3.7 X10 3/uL Normal 2.0-7.7 [facility] Comment on above: Performed By: #### L 500.2500, L501.5200, L501.9520, L100.0100, L501.4020 #### [facility] [address] [place], [address] Basophils/100 WBC (Bld) 0.6 % Normal 0-1 [facility] Comment on above: Performed By: #### L 500.2500, L501.5200, L501.9520, L100.0100, L501.4020 #### [facility] [address] [place], [address] Eosinophils/100 WBC (Bld) 1.6 % Normal 0-5 [facility] Comment on above: Performed By: #### L 500.2500, L501.5200, L501.9520, L100.0100, L501.4020 #### [facility] [address] [place], [address] Erythrocyte distribution width (RBC) [Ratio] 14.3 % Normal 11.6-14.6 [facility] Comment on above: Performed By: #### L 500.2500, L501.5200, L501.9520, L100.0100, L501.4020 #### [facility] [address] [place], [address] Hematocrit (Bld) [Volume fraction] 44.7 % Normal 37-47 [facility] Comment on above: Performed By: #### L 500.2500, L501.5200, L501.9520, L100.0100, L501.4020 #### [facility] [address] [place], [address] Hemoglobin (Bld) [Mass/Vol] 14.7 g/dL Normal 12.0-15.0 [facility] Comment on above: Performed By: #### L 500.2500, L501.5200, L501.9520, L100.0100, L501.4020 #### [facility] [address] [place], [address] IG% 0.300 Normal 0.0-0.9 [facility] Comment on above: Result Comment: IG% - Immature Granulocytes (promyelocytes, myelocytes and metamyelocytes) > 1% indicates that a LEFT SHIFT is Present. Performed By: #### L 500.2500, L501.5200, L501.9520, L100.0100, L501.4020 #### [facility] [address] [place], [address] Lymphocytes/100 WBC (Bld) 41.5 % High 19-41 [facility] Comment on above: Performed By: #### L 500.2500, L501.5200, L501.9520, L100.0100, L501.4020 #### [facility] [address] [place], [address] MCH (RBC) [Entitic mass] 27.7 pg Normal 27.0-32.0 [facility] Comment on above: Performed By: #### L 500.2500, L501.5200, L501.9520, L100.0100, L501.4020 #### [facility] [address] [place], [address] MCHC (RBC) [Mass/Vol] 32.9 g/dL Normal 32-36 [facility] Comment on above: Performed By: #### L 500.2500, L501.5200, L501.9520, L100.0100, L501.4020 #### [facility] [address] [place], [address] MCV (RBC) [Entitic vol] 84.2 fL Normal 81-99 [facility] Comment on above: Performed By: #### L 500.2500, L501.5200, L501.9520, L100.0100, L501.4020 #### [facility] [address] [place], [address] Monocytes/100 WBC (Bld) 4.0 % Normal 0-10 [facility] Comment on above: Performed By: #### L 500.2500, L501.5200, L501.9520, L100.0100, L501.4020 #### [facility] [address] [place], [address] Neutrophils/100 WBC (Bld) 52.0 % Normal 47-70 [facility] Comment on above: Performed By: #### L 500.2500, L501.5200, L501.9520, L100.0100, L501.4020 #### [facility] [address] [place], [address] Nucleated RBC (Bld) [#/Vol] 0 10*3/uL Normal 0-5 [facility] Comment on above: Performed By: #### L 500.2500, L501.5200, L501.9520, L100.0100, L501.4020 #### [facility] [address] [place], [address] Platelet mean volume (Bld) [Entitic vol] 10.4 fL Normal 6.2-12.0 [facility] Comment on above: Performed By: #### L 500.2500, L501.5200, L501.9520, L100.0100, L501.4020 #### [facility] [address] [place], [address] Platelets (Bld) [#/Vol] 233 10*3/uL Normal 150-450 [facility] Comment on above: Performed By: #### L 500.2500, L501.5200, L501.9520, L100.0100, L501.4020 #### [facility] [address] [place], [address] RBC (Bld) [#/Vol] 5.31 10*6/uL Normal 4.2-5.4 [facility] Comment on above: Performed By: #### L 500.2500, L501.5200, L501.9520, L100.0100, L501.4020 #### [facility] [address] [place], [address] RDW SD 43.7 fl Normal 35.1-43.9 [facility] Comment on above: Performed By: #### L 500.2500, L501.5200, L501.9520, L100.0100, L501.4020 #### [facility] [address] [place], [address] WBC (Bld) [#/Vol] 7.1 10*3/uL Normal 4.4-11.0 [facility] Comment on above: Performed By: #### L 500.2500, L501.5200, L501.9520, L100.0100, L501.4020 #### [facility] [address] [place], [address] Chest 1 View (Portable)on Chest 1 View (Portable) [facility] Imaging Services [address] [place] [address] Chest 1 View (Portable) MR#: [id number] Acct: [id number] Name: FAUSTINA GLASGOW Rep #: [id number] : 1975 F 48 From: Alexx rehman MD PCP: Dr. Savita Ahn MD Status: REG ER Study: Chest 1 View (Portable) Date of Exam: 01/01/24 Exam# [id number] Ordering Dr: Thanh Mcdonald DO [id number] INDICATION: chest pain EXAMINATION/TECHNIQUE: X-RAY - XR Chest 1 View COMPARISON: 12/04/2023. FINDINGS: The lungs are clear. The cardiomediastinal silhouette is unremarkable. No pleural effusion or pneumothorax. Degenerative changes of the thoracic spine. RAD/Chest 1 View (Portable) IMPRESSION: No acute radiographic abnormalities. Electronically Signed: Alexx Echavarria MD at 19:49 EDT , CC: Dr. Savita Ahn MD; Dr. Thanh Mcdonald DO Manager Of Program: Signed Normal [facility] Emergency Department Summary on 01-01-2024 Emergency Department Summary [facility] Medical Records Department [address] [place] [address] Emergency Department Summary 01/01/24 MR#: [id number] Acct: [id number] Name: FAUSTINA GLASGOW Rep #: [id number] : 1975 48 From: Thanh Mcdonald DO [...] her carotid arteries which were also normal. [facility] Medical History Seizure disorder Meningioma [...] following commands knew that she was at [facility] there is 2023 Skin: Warm, dry, [...] is o (more content not included)... Normal [facility] L501.4020on 01-01-2024 TROPONIN-I HS 4 pg/mL Normal 3.0-54.0 [facility] Comment on above: Result Comment: Plea se Note: New Test Units and Gender Specific Reference Ranges. For more information see Policy Stat Procedure [place] High Sensitivity Troponin (TNIH) and attachments. Performed By: #### L 501.4020 #### [facility] [address] [place], [place], [id number] L501.5425on 01-01-2024 TROPONIN-I HS < 3 Low 3.0-54.0 [facility] Comment on above: Order Comment: 'TROP ' Serial specimen #1, #2 or #3: 1 Result Comment: Plea se Note: New Test Units and Gender Specific Reference Ranges. For more information see Policy Stat Procedure [place] High Sensitivity Troponin (TNIH) and attachments. Performed By: #### L 500.2500, L501.5200, L501.9520, L100.0100, L501.4020 #### [facility] [address] [place], [place], [id number] MRI SPINE LUMBAR W/ + W/O CO [...] 12/29/2023 6:42:46 PM Ordering Provider: KARY Yusuf [facility] MRI SPINE CERVICAL W/ + W/O [...] Date: 12/25/2023 4:25:43 PM Ordering Provider: KARY Yusuf [facility] MRI SPINE THORACIC W/ + W/O CONTRASTon [...] 12/25/2023 4:23:33 PM Ordering Provider: KARY Yusuf [facility] Internal Medicine Office Vis amy 12-15-2023 Internal Medicine Office Visit [facility] [address] [place] [address] OFFICE VISIT Date of Service: 12/16/23 MR#: [id number] Acct: [id number] Name: FAUSTINA GLASGOW Rep #: [id number] : 1975 Provider: Dr. Savita harris MD Age/Sex: 48/F Location: [facility] Status: Signed Intake Vital Signs 12/04/23 01:07 [...] Chief Complaint: burning in stomach/ dark stools Organ Recovery Coordinator Required: No Accompanied by: Self Is patient [...] some nause (more content not included)... Normal [facility] 12 Lead EKGon 12-04-2023 12 Lead EKG [facility] Cardiovascular Services [address] [place] [address] 12 Lead EKG 12/04/23 0219 MR#: [id number] Acct: [id number] Name: FAUSTINA GLASGOW Rep #: [id number] : 1975 48 From: Roel Greene MD [...] with sinus arrhythmia Normal ECG Confirmed by ROEL GREENE MD ([id number]), continuity editor KELLY VINCENT ([id number]) on 12/07/2023 7:29:00 AM Referred By: Confirmed By:ROEL GREENE MD 12/07/23 0729 Date Roel Greene MD CC: Dr. Savita Ahn MD; Dr. Thanh Mcdonald DO Signed Normal [facility] Basic Metabolic Profile (BMP )on 12-04-2023 BUN/CRE 10.2 RATIO Normal 10-20 [facility] Comment on above: Order Comment: 'TROP ' Serial specimen #1, #2 or #3: 1 Performed By: #### L 500.2500, L501.5200, L501.9520, L100.0100, L501.4020 #### [facility] [address] [place], [address] CA,Total 8.7 mg/dL Normal 8.5-10.1 [facility] Comment on above: Order Comment: 'TROP ' Serial specimen #1, #2 or #3: 1 Performed By: #### L 500.2500, L501.5200, L501.9520, L100.0100, L501.4020 #### [facility] [address] [place], [address] Chloride [Moles/Vol] 109 mmol/L High 98-107 [facility] Comment on above: Order Comment: 'TROP ' Serial specimen #1, #2 or #3: 1 Performed By: #### L 500.2500, L501.5200, L501.9520, L100.0100, L501.4020 #### [facility] [address] [place], [address] CO2 [Moles/Vol] 26.0 mmol/L Normal 21.0-32.0 [facility] Comment on above: Order Comment: 'TROP ' Serial specimen #1, #2 or #3: 1 Performed By: #### L 500.2500, L501.5200, L501.9520, L100.0100, L501.4020 #### [facility] [address] [place], [address] Creatinine [Mass/Vol] 0.98 mg/dL Normal 0.55-1.02 [facility] Comment on above: Order Comment: 'TROP ' Serial specimen #1, #2 or #3: 1 Result Comment: The validity of the calculated GFR GFRAA in patients over 70 years has not been determined. Clinical correlation is essential. Performed By: #### L 500.2500, L501.5200, L501.9520, L100.0100, L501.4020 #### [facility] [address] [place], [address] ECRCL 73.94 ml/min Normal [facility] Comment on above: Order Comment: 'TROP ' Serial specimen #1, #2 or #3: 1 Performed By: #### L 500.2500, L501.5200, L501.9520, L100.0100, L501.4020 #### [facility] [address] [place], [address] EST GFR - AA 77 mL/min Normal >60 [facility] Comment on above: Order Comment: 'TROP ' Serial specimen #1, #2 or #3: 1 Result Comment: Afri can [place] GFR Calc Performed By: #### L 500.2500, L501.5200, L501.9520, L100.0100, L501.4020 #### [facility] [address] [place], [address] GAP 7 Normal 5-15 [facility] Comment on above: Order Comment: 'TROP ' Serial specimen #1, #2 or #3: 1 Performed By: #### L 500.2500, L501.5200, L501.9520, L100.0100, L501.4020 #### [facility] [address] [place], [address] GFR/1.73 sq M.predicted among non-blacks MDRD (S/P/Bld) [Vol rate/Area] 64 mL/min/{1.73_m2} Normal >60 [facility] Comment on above: Order Comment: 'TROP ' Serial specimen #1, #2 or #3: 1 Result Comment: Non- GFR Calc Performed By: #### L 500.2500, L501.5200, L501.9520, L100.0100, L501.4020 #### [facility] [address] [place], [address] Glucose [Mass/Vol] 99 mg/dL Normal 74-106 [facility] Comment on above: Order Comment: 'TROP ' Serial specimen #1, #2 or #3: 1 Performed By: #### L 500.2500, L501.5200, L501.9520, L100.0100, L501.4020 #### [facility] [address] [place], [address] Potassium [Moles/Vol] 3.1 mmol/L Low 3.5-5.1 [facility] Comment on above: Order Comment: 'TROP ' Serial specimen #1, #2 or #3: 1 Performed By: #### L 500.2500, L501.5200, L501.9520, L100.0100, L501.4020 #### [facility] [address] [place], [address] Sodium [Moles/Vol] 142 mmol/L Normal 136-145 [facility] Comment on above: Order Comment: 'TROP ' Serial specimen #1, #2 or #3: 1 Performed By: #### L 500.2500, L501.5200, L501.9520, L100.0100, L501.4020 #### [facility] [address] [place], [address] Urea nitrogen [Mass/Vol] 10 mg/dL Normal 7-18 [facility] Comment on above: Order Comment: 'TROP ' Serial specimen #1, #2 or #3: 1 Performed By: #### L 500.2500, L501.5200, L501.9520, L100.0100, L501.4020 #### [facility] [address] [place], [address] Brain/Head without Contrasto n 12-04-2023 Brain/Head without Contrast [facility] Imaging Services [address] [place] [address] Brain/Head without Contrast MR#: [id number] Acct: [id number] Name: FAUSTINA GLASGOW Rep #: [id number] : 1975 F 48 From: Louie Heard PCP: Dr. Savita Ahn MD Status: REG ER Study: Brain/Head without Contrast Date of Exam: 11/08 09/29 Exam# [id number] Ordering Dr: Thanh Mcdonald DO [id number] INDICATION: diffuse tingling, hx of meningioma EXAMINATION: [...] Signed: Louie Vanessa MD at 2:16 EDT , CC: Dr. Savita Ahn MD; Dr. Thanh Mcdonald DO Manager Of Program: Signed Normal [facility] CBC W/Diff, Automatedon 11-08 Absolute Lymph 5.18 X10 3/uL High 0.83-4.51 [facility] Comment on above: Performed By: #### L 500.2500, L501.5200, L501.9520, L100.0100, L501.4020 #### [facility] [address] [place], [address] Absolute Neut 5.0 X10 3/uL Normal 2.0-7.7 [facility] Comment on above: Performed By: #### L 500.2500, L501.5200, L501.9520, L100.0100, L501.4020 #### [facility] [address] [place], [address] Basophils/100 WBC (Bld) 0.6 % Normal 0-1 [facility] Comment on above: Performed By: #### L 500.2500, L501.5200, L501.9520, L100.0100, L501.4020 #### [facility] [address] [place], [address] Eosinophils/100 WBC (Bld) 0.9 % Normal 0-5 [facility] Comment on above: Performed By: #### L 500.2500, L501.5200, L501.9520, L100.0100, L501.4020 #### [facility] [address] [place], [address] Erythrocyte distribution width (RBC) [Ratio] 14.7 % High 11.6-14.6 [facility] Comment on above: Performed By: #### L 500.2500, L501.5200, L501.9520, L100.0100, L501.4020 #### [facility] [address] [place], [address] Hematocrit (Bld) [Volume fraction] 44.9 % Normal 37-47 [facility] Comment on above: Performed By: #### L 500.2500, L501.5200, L501.9520, L100.0100, L501.4020 #### [facility] [address] [place], [address] Hemoglobin (Bld) [Mass/Vol] 14.5 g/dL Normal 12.0-15.0 [facility] Comment on above: Performed By: #### L 500.2500, L501.5200, L501.9520, L100.0100, L501.4020 #### [facility] [address] [place], [address] IG% 0.600 Normal 0.0-0.9 [facility] Comment on above: Result Comment: IG% - Immature Granulocytes (promyelocytes, myelocytes and metamyelocytes) > 1% indicates that a LEFT SHIFT is Present. Performed By: #### L 500.2500, L501.5200, L501.9520, L100.0100, L501.4020 #### [facility] [address] [place], [address] Lymphocytes/100 WBC (Bld) 48.5 % High 19-41 [facility] Comment on above: Performed By: #### L 500.2500, L501.5200, L501.9520, L100.0100, L501.4020 #### [facility] [address] [place], [address] MCH (RBC) [Entitic mass] 27.3 pg Normal 27.0-32.0 [facility] Comment on above: Performed By: #### L 500.2500, L501.5200, L501.9520, L100.0100, L501.4020 #### [facility] [address] [place], [address] MCHC (RBC) [Mass/Vol] 32.3 g/dL Normal 32-36 [facility] Comment on above: Performed By: #### L 500.2500, L501.5200, L501.9520, L100.0100, L501.4020 #### [facility] [address] [place], [address] MCV (RBC) [Entitic vol] 84.4 fL Normal 81-99 [facility] Comment on above: Performed By: #### L 500.2500, L501.5200, L501.9520, L100.0100, L501.4020 #### [facility] [address] [place], [address] Monocytes/100 WBC (Bld) 2.9 % Normal 0-10 [facility] Comment on above: Performed By: #### L 500.2500, L501.5200, L501.9520, L100.0100, L501.4020 #### [facility] [address] [place], [address] Neutrophils/100 WBC (Bld) 46.5 % Low 47-70 [facility] Comment on above: Performed By: #### L 500.2500, L501.5200, L501.9520, L100.0100, L501.4020 #### [facility] [address] [place], [address] Nucleated RBC (Bld) [#/Vol] 0 10*3/uL Normal 0-5 [facility] Comment on above: Performed By: #### L 500.2500, L501.5200, L501.9520, L100.0100, L501.4020 #### [facility] [address] [place], [address] Platelet mean volume (Bld) [Entitic vol] 10.3 fL Normal 6.2-12.0 [facility] Comment on above: Performed By: #### L 500.2500, L501.5200, L501.9520, L100.0100, L501.4020 #### [facility] [address] [place], [address] Platelets (Bld) [#/Vol] 253 10*3/uL Normal 150-450 [facility] Comment on above: Performed By: #### L 500.2500, L501.5200, L501.9520, L100.0100, L501.4020 #### [facility] [address] [place], [address] RBC (Bld) [#/Vol] 5.32 10*6/uL Normal 4.2-5.4 [facility] Comment on above: Performed By: #### L 500.2500, L501.5200, L501.9520, L100.0100, L501.4020 #### [facility] [address] [place], [address] RDW SD 44.5 fl High 35.1-43.9 [facility] Comment on above: Performed By: #### L 500.2500, L501.5200, L501.9520, L100.0100, L501.4020 #### [facility] [address] [place], [address] WBC (Bld) [#/Vol] 10.7 10*3/uL Normal 4.4-11.0 [facility] Comment on above: Performed By: #### L 500.2500, L501.5200, L501.9520, L100.0100, L501.4020 #### [facility] [address] [place], [address] Chest PA and Lateralon 12-03 Chest PA and Lateral [facility] Imaging Services [address] [place] [address] Chest PA and Lateral MR#: [id number] Acct: [id number] Name: FAUSTINA GLASGOW Rep #: [id number] : 1975 F 48 From: Louie Heard PCP: Dr. Savita Ahn MD Status: [facility] ER Study: Chest PA and Lateral Date of Exam: 12/04/23 Exam# [id number] Ordering Dr: Thanh Mcdonald [place] [id number] INDICATION: chest pain EXAMINATION/TECHNIQUE: X-RAY - XR [...] 2:17 EDT Reading Location ID and State: [facility] / [place] Tel , Service support , CC: Dr. Savita Ahn MD; Dr. Thanh Mcdonald DO Manager Of Program: Signed Normal [facility] Emergency Department Summary on 12-04-2023 Emergency Department Summary [facility] Medical Records Department [address] [place] [address] Emergency Department Summary 12/04/23 MR#: [id number] Acct: [id number] Name: FAUSTINA GLASGOW Rep #: [id number] : 1975 48 From: Thanh Mcdonald DO [...] job and noted that they went to pick up man this medication was noted to be thousand dollars and they noted that he could not afford this they want to job and family services to apply for insurance. She denies any recent sick contacts. [facility] Medical History Seizure disorder Meningioma [...] following commands knew that she was at [facility] year is 2023. Sensation grossly intact [...] 12/04/23 03:00 (more content not included)... Normal [facility] Free T3on 12-04-2023 Free T3 [Mass/Vol] 2.5 pg/mL Normal 2.18-3.98 [facility] Comment on above: Performed By: #### L 500.2500, L501.5200, L501.9520, L100.0100, L501.4020 #### [facility] [address] [place], [address] L501.4020on 12-04-2023 TROPONIN-I HS 6 pg/mL Normal 3.0-54.0 [facility] Comment on above: Order Comment: 'TROP ' Serial specimen #1, #2 or #3: 1 Result Comment: Stacy dinh Note: New Test Units and Gender Specific Reference Ranges. For more information see Policy Stat Procedure [place] High Sensitivity Troponin (TNIH) and attachments. Performed By: #### L 500.2500, L501.5200, L501.9520, L100.0100, L501.4020 #### [facility] [address] [place], [address] M100.678on 12-04-2023 M100.678 Pending SARS-CoV-2 (COVID 19) Negative INFLUENZA A Negative INFLUENZA B Negative RSV PCR Negative Normal [facility] Comment on above: Performed By: #### L 500.2500, L501.5200, L501.9520, L100.0100, L501.4020 #### [facility] [address] [place], [address] Magnesiumon 12-04-2023 Magnesium [Mass/Vol] 2.1 mg/dL Normal 1.6-2.6 [facility] Comment on above: Order Comment: 'TROP ' Serial specimen #1, #2 or #3: 1 Performed By: #### L 500.2500, L501.5200, L501.9520, L100.0100, L501.4020 #### [facility] [address] [place], [address] T4 Free Directon 12-04-2023 T4 FREE DIRECT 0.83 ng/dL Normal 0.76-1.46 [facility] Comment on above: Performed By: #### L 500.2500, L501.5200, L501.9520, L100.0100, L501.4020 #### [facility] [address] [place], [address] Thyroid Stim Hormone (TSH)on 12-04-2023 TSH 11.400 uIU/mL High 0.358-3.740 [facility] Comment on above: Order Comment: 'TROP ' Serial specimen #1, #2 or #3: 1 Performed By: #### L 500.2500, L501.5200, L501.9520, L100.0100, L501.4020 #### [facility] [place], [address] .Auto Diffon 12-01-2023 Basophil, Absolute 0.1 10 3/mcL Normal 0.0-0.2 [facility] Comment on above: Performed By: #### M DW, GFR, ANEU, TROPHS, CBC, BMP, ADIFF #### [address] [address] Basophils/100 WBC (Bld) 0.6 % Normal 0.0-2.5 [facility] Comment on above: Performed By: #### M DW, GFR, ANEU, TROPHS, CBC, BMP, ADIFF #### [address] [address] Eosinophil, Absolute 0.1 10 3/mcL Normal 0.0-0.7 [facility] Comment on above: Performed By: #### M DW, GFR, ANEU, TROPHS, CBC, BMP, ADIFF #### [address] [address] Eosinophils/100 WBC (Bld) 1.2 % Normal 0.0-7.0 [facility] Comment on above: Performed By: #### M DW, GFR, ANEU, TROPHS, CBC, BMP, ADIFF #### [address] [address] Lymphocyte, Absolute 2.2 10 3/mcL Normal 0.9-4.3 [facility] Comment on above: Performed By: #### M DW, GFR, ANEU, TROPHS, CBC, BMP, ADIFF #### [address] [address] Lymphocytes/100 WBC (Bld) 27.4 % Normal 20.0-40.0 [facility] Comment on above: Performed By: #### M DW, GFR, ANEU, TROPHS, CBC, BMP, ADIFF #### [address] [address] Monocyte, Absolute 0.2 10 3/mcL Normal 0.1-1.4 [facility] Comment on above: Performed By: #### M DW, GFR, ANEU, TROPHS, CBC, BMP, ADIFF #### [address] [address] Monocytes/100 WBC (Bld) 2.6 % Normal 2.0-13.0 [facility] Comment on above: Performed By: #### M DW, GFR, ANEU, TROPHS, CBC, BMP, ADIFF #### [address] [address] Neutrophils/100 WBC (Bld) 68.2 % Normal 50.0-75.0 [facility] Comment on above: Performed By: #### M DW, GFR, ANEU, TROPHS, CBC, BMP, ADIFF #### [address] [address] .GFRon 12-01-2023 GFR 70 ml/min/1.73sqm [facility] Comment on above: Result Comment: GFR Population [...] GFR, ANEU, TROPHS, CBC, BMP, ADIFF #### [address] [address] GFR Non- 57 ml/min/1.73sqm Normal [facility] Comment on above: Result Comment: GFR [...] GFR, ANEU, TROPHS, CBC, BMP, ADIFF #### [address] [address] .MDWon 12-01-2023 Monocyte Distribution Width 19.74 Normal 0.00-20.00 [facility] Comment on above: Result Comment: For ED adult patients suspected of sepsis, MDW<=20.0 does not rule out sepsis or risk of sepsis Performed By: #### M DW, GFR, ANEU, TROPHS, CBC, BMP, ADIFF #### [address] [address] .NEUABSon 12-01-2023 Neutrophil, Absolute 5.6 10 3/mcL Normal 2.3-8.1 [facility] Comment on above: Performed By: #### M DW, GFR, ANEU, TROPHS, CBC, BMP, ADIFF #### [address] [place], [place] [address] BMPon 12-01-2023 BUN/Creatinine Ratio 8 ratio Normal 7-27 [facility] Comment on above: Performed By: #### M DW, GFR, ANEU, TROPHS, CBC, BMP, ADIFF #### [address] [place], [place] [address] Calcium [Mass/Vol] 9.2 mg/dL Normal 8.4-10.2 [facility] Comment on above: Performed By: #### M DW, GFR, ANEU, TROPHS, CBC, BMP, ADIFF #### [address] [address] Chloride [Moles/Vol] 106 mmol/L Normal 98-107 [facility] Comment on above: Performed By: #### M DW, GFR, ANEU, TROPHS, CBC, BMP, ADIFF #### [address] [address] CO2 [Moles/Vol] 28 mmol/L Normal 22-29 [facility] Comment on above: Performed By: #### M DW, GFR, ANEU, TROPHS, CBC, BMP, ADIFF #### [address] [address] Creatinine [Mass/Vol] 1.02 mg/dL Normal 0.55-1.02 [facility] Comment on above: Result Comment: Test ing performed on Siemens Dimension EXL analyzer using a modified kinetic Mynor technique. Performed By: #### M DW, GFR, ANEU, TROPHS, CBC, BMP, ADIFF #### [address] [address] Electrolyte Balance 10.0 mEq/L Normal 4.0-15.0 [facility] Comment on above: Performed By: #### M DW, GFR, ANEU, TROPHS, CBC, BMP, ADIFF #### [address] [address] Glucose [Mass/Vol] 94 mg/dL Normal 70-105 [facility] Comment on above: Performed By: #### M DW, GFR, ANEU, TROPHS, CBC, BMP, ADIFF #### [address] [address] Potassium [Moles/Vol] 4.1 mmol/L Normal 3.5-5.1 [facility] Comment on above: Performed By: #### M DW, GFR, ANEU, TROPHS, CBC, BMP, ADIFF #### [address] [address] Sodium [Moles/Vol] 144 mmol/L Normal 136-145 [facility] Comment on above: Performed By: #### M DW, GFR, ANEU, TROPHS, CBC, BMP, ADIFF #### [place] [address] Urea nitrogen [Mass/Vol] 8 mg/dL Normal 7-18 [facility] Comment on above: Performed By: #### M DW, GFR, ANEU, TROPHS, CBC, BMP, ADIFF #### [place] [address] CBCon 12-01-2023 Erythrocyte distribution width (RBC) [Ratio] 14.8 % Normal 11.5-15.5 [facility] Comment on above: Performed By: #### M DW, GFR, ANEU, TROPHS, CBC, BMP, ADIFF #### [place] [address] Hematocrit (Bld) [Volume fraction] 45.4 % Normal 34.0-46.0 [facility] Comment on above: Performed By: #### M DW, GFR, ANEU, TROPHS, CBC, BMP, ADIFF #### [place] [address] Hgb 15.4 G/dL Normal 12.0-16.0 [facility] Comment on above: Performed By: #### M DW, GFR, ANEU, TROPHS, CBC, BMP, ADIFF #### [place] [address] MCH (RBC) [Entitic mass] 28.2 pg Normal 27.0-33.0 [facility] Comment on above: Performed By: #### M DW, GFR, ANEU, TROPHS, CBC, BMP, ADIFF #### [place] [address] MCHC 33.9 G/dL Normal 32.0-36.0 [facility] Comment on above: Performed By: #### M DW, GFR, ANEU, TROPHS, CBC, BMP, ADIFF #### [place] [address] MCV (RBC) [Entitic vol] 83.1 fL Normal 80.0-99.0 [facility] Comment on above: Performed By: #### M DW, GFR, ANEU, TROPHS, CBC, BMP, ADIFF #### [address] [place], [place] [address] Platelet 232 10 3/mcL Normal 150-450 [facility] Comment on above: Performed By: #### M DW, GFR, ANEU, TROPHS, CBC, BMP, ADIFF #### [address] [place], [place] [address] Platelet mean volume (Bld) [Entitic vol] 8.0 fL Normal 6.6-10.5 [facility] Comment on above: Performed By: #### M DW, GFR, ANEU, TROPHS, CBC, BMP, ADIFF #### [address] [place], [place] [address] RBC 5.46 10 6/mcL High 4.10-5.30 [facility] Comment on above: Performed By: #### M DW, GFR, ANEU, TROPHS, CBC, BMP, ADIFF #### [address] [address] WBC 8.2 10 3/mcL Normal 4.5-10.8 [facility] Comment on above: Performed By: #### M DW, GFR, ANEU, TROPHS, CBC, BMP, ADIFF #### [address] [address] LABORATORYOrdered By: SYSTEM SYSTEM on 12-01-2023 Basophils [...] ng/L Male: 0-76 ng/L Testing performed on [employer] using a homogeneous sandwich chemiluminescent immunoassay based on [employer] technology. Urea nitrogen [Mass/Vol] 8 mg/dL Normal 7 - 18 mg/dL AO ADM SS Urea nitrogen/Creatinine [Mass ratio] 8 ratio Normal 7 - 27 ratio AO ADM SS WBC (Bld) [#/Vol] 8.2 103/mcL Normal 4.5 - 10.8 10^3/mcL AO Workflow SS TROPHSon 12-01-2023 High Sensitivity Troponin I <4 Normal 0-51 [facility] Comment on above: Result Comment: High Sensitive Troponin I Reference Ranges: Female: 0-51 ng/L Male: 0-76 ng/L Testing performed on [employer] using a homogeneous sandwich chemiluminescent immunoassay based on [employer] technology. Performed By: #### M DW, GFR, ANEU, TROPHS, CBC, BMP, ADIFF #### [address] [address] CBC W/Diff, Automatedon 11-07 Absolute Lymph 3.59 X10 3/uL Normal 0.83-4.51 [facility] Comment on above: Performed By: #### L 500.2500, L501.5200, L501.9520, L100.0100, L501.4020 #### [facility] [address] [place], [address] Absolute Neut 4.1 X10 3/uL Normal 2.0-7.7 [facility] Comment on above: Performed By: #### L 500.2500, L501.5200, L501.9520, L100.0100, L501.4020 #### [facility] [address] [place], [address] Basophils/100 WBC (Bld) 0.7 % Normal 0-1 [facility] Comment on above: Performed By: #### L 500.2500, L501.5200, L501.9520, L100.0100, L501.4020 #### [facility] [address] [place], [address] Eosinophils/100 WBC (Bld) 1.6 % Normal 0-5 [facility] Comment on above: Performed By: #### L 500.2500, L501.5200, L501.9520, L100.0100, L501.4020 #### [facility] [address] [place], [address] Erythrocyte distribution width (RBC) [Ratio] 14.6 % Normal 11.6-14.6 [facility] Comment on above: Performed By: #### L 500.2500, L501.5200, L501.9520, L100.0100, L501.4020 #### [facility] [address] [place], [address] Hematocrit (Bld) [Volume fraction] 45.0 % Normal 37-47 [facility] Comment on above: Performed By: #### L 500.2500, L501.5200, L501.9520, L100.0100, L501.4020 #### [facility] [address] [place], [address] Hemoglobin (Bld) [Mass/Vol] 14.7 g/dL Normal 12.0-15.0 [facility] Comment on above: Performed By: #### L 500.2500, L501.5200, L501.9520, L100.0100, L501.4020 #### [facility] [address] [place], [address] IG% 0.500 Normal 0.0-0.9 [facility] Comment on above: Result Comment: IG% - Immature Granulocytes (promyelocytes, myelocytes and metamyelocytes) > 1% indicates that a LEFT SHIFT is Present. Performed By: #### L 500.2500, L501.5200, L501.9520, L100.0100, L501.4020 #### [facility] [address] [place], [address] Lymphocytes/100 WBC (Bld) 43.4 % High 19-41 [facility] Comment on above: Performed By: #### L 500.2500, L501.5200, L501.9520, L100.0100, L501.4020 #### [facility] [address] [place], [address] MCH (RBC) [Entitic mass] 27.4 pg Normal 27.0-32.0 [facility] Comment on above: Performed By: #### L 500.2500, L501.5200, L501.9520, L100.0100, L501.4020 #### [facility] [address] [place], [address] MCHC (RBC) [Mass/Vol] 32.7 g/dL Normal 32-36 [facility] Comment on above: Performed By: #### L 500.2500, L501.5200, L501.9520, L100.0100, L501.4020 #### [facility] [address] [place], [address] MCV (RBC) [Entitic vol] 83.8 fL Normal 81-99 [facility] Comment on above: Performed By: #### L 500.2500, L501.5200, L501.9520, L100.0100, L501.4020 #### [facility] [address] [place], [address] Monocytes/100 WBC (Bld) 4.4 % Normal 0-10 [facility] Comment on above: Performed By: #### L 500.2500, L501.5200, L501.9520, L100.0100, L501.4020 #### [facility] [address] [place], [address] Neutrophils/100 WBC (Bld) 49.4 % Normal 47-70 [facility] Comment on above: Performed By: #### L 500.2500, L501.5200, L501.9520, L100.0100, L501.4020 #### [facility] [address] [place], [address] Nucleated RBC (Bld) [#/Vol] 0 10*3/uL Normal 0-5 [facility] Comment on above: Performed By: #### L 500.2500, L501.5200, L501.9520, L100.0100, L501.4020 #### [facility] [address] [place], [address] Platelet mean volume (Bld) [Entitic vol] 10.3 fL Normal 6.2-12.0 [facility] Comment on above: Performed By: #### L 500.2500, L501.5200, L501.9520, L100.0100, L501.4020 #### [facility] [address] [place], [address] Platelets (Bld) [#/Vol] 238 10*3/uL Normal 150-450 [facility] Comment on above: Performed By: #### L 500.2500, L501.5200, L501.9520, L100.0100, L501.4020 #### [facility] [address] [place], [address] RBC (Bld) [#/Vol] 5.37 10*6/uL Normal 4.2-5.4 [facility] Comment on above: Performed By: #### L 500.2500, L501.5200, L501.9520, L100.0100, L501.4020 #### [facility] [address] [place], [address] RDW SD 43.9 fl Normal 35.1-43.9 [facility] Comment on above: Performed By: #### L 500.2500, L501.5200, L501.9520, L100.0100, L501.4020 #### [facility] [address] [place], [address] WBC (Bld) [#/Vol] 8.3 10*3/uL Normal 4.4-11.0 [facility] Comment on above: Performed By: #### L 500.2500, L501.5200, L501.9520, L100.0100, L501.4020 #### [facility] [address] [place], [address] Comprehensive Metabolic Prof [facility] 11-26-2023 Albumin [Mass/Vol] 3.3 g/dL Normal 3.2-5.0 [facility] Comment on above: Performed By: #### L 500.2500, L501.5200, L501.9520, L100.0100, L501.4020 #### [facility] [address] [place], [address] Albumin/Globulin [Mass ratio] 0.8 {ratio} Low 0.9-2.4 [facility] Comment on above: Performed By: #### L 500.2500, L501.5200, L501.9520, L100.0100, L501.4020 #### [facility] [address] [place], [address] ALK P 102 U/L Normal 45-117 [facility] Comment on above: Performed By: #### L 500.2500, L501.5200, L501.9520, L100.0100, L501.4020 #### [facility] [address] [place], [address] ALT [Catalytic activity/Vol] 24 U/L Normal 13-56 [facility] Comment on above: Performed By: #### L 500.2500, L501.5200, L501.9520, L100.0100, L501.4020 #### [facility] [address] [place], [address] AST [Catalytic activity/Vol] 14 U/L Low 15-37 [facility] Comment on above: Result Comment: Slig ht Hemolysis, Result may be falsely increased. Performed By: #### L 500.2500, L501.5200, L501.9520, L100.0100, L501.4020 #### [facility] [address] [place], [address] Bilirubin [Mass/Vol] 0.20 mg/dL Normal 0.20-1.00 [facility] Comment on above: Result Comment: For patients on eltrombopag therapy, use of Dimension [place] TBIL is not recommended. Performed By: #### L 500.2500, L501.5200, L501.9520, L100.0100, L501.4020 #### [facility] [address] [place], [address] BUN/CRE 12.7 RATIO Normal 10-20 [facility] Comment on above: Performed By: #### L 500.2500, L501.5200, L501.9520, L100.0100, L501.4020 #### [facility] [address] [place], [address] CA,Total 9.2 mg/dL Normal 8.5-10.1 [facility] Comment on above: Performed By: #### L 500.2500, L501.5200, L501.9520, L100.0100, L501.4020 #### [facility] [address] [place], [address] Chloride [Moles/Vol] 107 mmol/L Normal 98-107 [facility] Comment on above: Performed By: #### L 500.2500, L501.5200, L501.9520, L100.0100, L501.4020 #### [facility] [address] [place], [address] CO2 [Moles/Vol] 25.0 mmol/L Normal 21.0-32.0 [facility] Comment on above: Performed By: #### L 500.2500, L501.5200, L501.9520, L100.0100, L501.4020 #### [facility] [address] [place], [address] Creatinine [Mass/Vol] 0.94 mg/dL Normal 0.55-1.02 [facility] Comment on above: Result Comment: The validity of the calculated GFR GFRAA in patients over 70 years has not been determined. Clinical correlation is essential. Performed By: #### L 500.2500, L501.5200, L501.9520, L100.0100, L501.4020 #### [facility] [address] [place], [address] ECRCL 80.39 ml/min Normal [facility] Comment on above: Performed By: #### L 500.2500, L501.5200, L501.9520, L100.0100, L501.4020 #### [facility] [address] [place], [address] EST GFR - AA 81 mL/min Normal >60 [facility] Comment on above: Result Comment: Afri can [place] GFR Calc Performed By: #### L 500.2500, L501.5200, L501.9520, L100.0100, L501.4020 #### [facility] [address] [place], [address] GAP 6 Normal 5-15 [facility] Comment on above: Performed By: #### L 500.2500, L501.5200, L501.9520, L100.0100, L501.4020 #### [facility] [address] [place], [address] GFR/1.73 sq M.predicted among non-blacks MDRD (S/P/Bld) [Vol rate/Area] 67 mL/min/{1.73_m2} Normal >60 [facility] Comment on above: Result Comment: Non- GFR Calc Performed By: #### L 500.2500, L501.5200, L501.9520, L100.0100, L501.4020 #### [facility] [address] [place], [address] Globulin (S) [Mass/Vol] 4.2 g/dL Normal 2.2-4.2 [facility] Comment on above: Performed By: #### L 500.2500, L501.5200, L501.9520, L100.0100, L501.4020 #### [facility] [address] [place], [address] Glucose [Mass/Vol] 130 mg/dL High 74-106 [facility] Comment on above: Result Comment: Fast ing Glucose result greater than or equal to 126 mg/dL suggests DIABETES MELLITUS per A.D.A. criteria. Performed By: #### L 500.2500, L501.5200, L501.9520, L100.0100, L501.4020 #### [facility] [address] [place], [address] Potassium [Moles/Vol] 3.6 mmol/L Normal 3.5-5.1 [facility] Comment on above: Result Comment: Slig ht Hemolysis, Result may be falsely increased. Performed By: #### L 500.2500, L501.5200, L501.9520, L100.0100, L501.4020 #### [facility] [address] [place], [address] Sodium [Moles/Vol] 138 mmol/L Normal 136-145 [facility] Comment on above: Performed By: #### L 500.2500, L501.5200, L501.9520, L100.0100, L501.4020 #### [facility] [address] [place], [address] T PROT 7.5 g/dL Normal 6.4-8.2 [facility] Comment on above: Performed By: #### L 500.2500, L501.5200, L501.9520, L100.0100, L501.4020 #### [facility] [address] [place], [address] Urea nitrogen [Mass/Vol] 12 mg/dL Normal 7-18 [facility] Comment on above: Performed By: #### L 500.2500, L501.5200, L501.9520, L100.0100, L501.4020 #### [facility] [address] [place], [address] Emergency Department Summary on 11-26-2023 Emergency Department Summary [facility] Medical Records Department [address] [place] [address] Emergency Department Summary 11/26/23 MR#: [id number] Acct: [id number] Name: FAUSTINA GLASGOW Rep #: [id number] : 1975 48 From: Nelson Ba MD [...] motor deficits (more content not included)... Normal [facility] Lipaseon 11-26-2023 Lipase [Catalytic activity/Vol] 48 U/L Normal 13-75 [facility] Comment on above: Result Comment: Stacy dinh note: LIPASE revised reference range effective 22. New Lipase methodology. Expected to produce lower values than the previous assay method. NEW Reference Range: 13 - 75 U/L Performed By: #### L 500.2500, L501.5200, L501.9520, L100.0100, L501.4020 #### [facility] [place], [address] KEPPRA (LEVETIRACETAM)on KEPPRA 13.6 ug/mL Normal 10.0-40.0 [facility] Comment on above: Result Comment: Perf ormed at: [facility] - [facility] [address] [id number] Small Business Sales Representative: Gordon Mcqueen MD, Phone: [phone] Performed By: #### L 500.2500, L501.5200, L501.9520, L100.0100, L501.4020 #### [facility] [address] [place], [address] Comprehensive Metabolic Prof ilon 11-11-2023 Albumin [Mass/Vol] 3.4 g/dL Normal 3.2-5.0 [facility] Comment on above: Performed By: #### L 500.2500, L501.5200, L501.9520, L100.0100, L501.4020 #### [facility] [address] [place], [address] Albumin/Globulin [Mass ratio] 0.8 {ratio} Low 0.9-2.4 [facility] Comment on above: Performed By: #### L 500.2500, L501.5200, L501.9520, L100.0100, L501.4020 #### [facility] [address] [place], [address] ALK P 115 U/L Normal 45-117 [facility] Comment on above: Performed By: #### L 500.2500, L501.5200, L501.9520, L100.0100, L501.4020 #### [facility] [address] [place], [address] ALT [Catalytic activity/Vol] 22 U/L Normal 13-56 [facility] Comment on above: Performed By: #### L 500.2500, L501.5200, L501.9520, L100.0100, L501.4020 #### [facility] [address] [place], [address] AST [Catalytic activity/Vol] 13 U/L Low 15-37 [facility] Comment on above: Performed By: #### L 500.2500, L501.5200, L501.9520, L100.0100, L501.4020 #### [facility] [address] [place], [address] Bilirubin [Mass/Vol] 0.30 mg/dL Normal 0.20-1.00 [facility] Comment on above: Result Comment: For patients on eltrombopag therapy, use of Dimension [place] TBIL is not recommended. Performed By: #### L 500.2500, L501.5200, L501.9520, L100.0100, L501.4020 #### [facility] [address] [place], [address] BUN/CRE 10.6 RATIO Normal 10-20 [facility] Comment on above: Performed By: #### L 500.2500, L501.5200, L501.9520, L100.0100, L501.4020 #### [facility] [address] [place], [address] CA,Total 9.3 mg/dL Normal 8.5-10.1 [facility] Comment on above: Performed By: #### L 500.2500, L501.5200, L501.9520, L100.0100, L501.4020 #### [facility] [address] [place], [address] Chloride [Moles/Vol] 105 mmol/L Normal 98-107 [facility] Comment on above: Performed By: #### L 500.2500, L501.5200, L501.9520, L100.0100, L501.4020 #### [facility] [address] [place], [address] CO2 [Moles/Vol] 29.0 mmol/L Normal 21.0-32.0 [facility] Comment on above: Performed By: #### L 500.2500, L501.5200, L501.9520, L100.0100, L501.4020 #### [facility] [address] [place], [address] Creatinine [Mass/Vol] 0.94 mg/dL Normal 0.55-1.02 [facility] Comment on above: Result Comment: The validity of the calculated GFR GFRAA in patients over 70 years has not been determined. Clinical correlation is essential. Performed By: #### L 500.2500, L501.5200, L501.9520, L100.0100, L501.4020 #### [facility] [address] [place], [address] ECRCL 76.96 ml/min Normal [facility] Comment on above: Performed By: #### L 500.2500, L501.5200, L501.9520, L100.0100, L501.4020 #### [facility] [address] [place], [address] EST GFR - AA 81 mL/min Normal >60 [facility] Comment on above: Result Comment: Afri can [place] GFR Calc Performed By: #### L 500.2500, L501.5200, L501.9520, L100.0100, L501.4020 #### [facility] [address] [place], [address] GAP 5 Normal 5-15 [facility] Comment on above: Performed By: #### L 500.2500, L501.5200, L501.9520, L100.0100, L501.4020 #### [facility] [address] [place], [address] GFR/1.73 sq M.predicted among non-blacks MDRD (S/P/Bld) [Vol rate/Area] 67 mL/min/{1.73_m2} Normal >60 [facility] Comment on above: Result Comment: Non- GFR Calc Performed By: #### L 500.2500, L501.5200, L501.9520, L100.0100, L501.4020 #### [facility] [address] [place], [address] Globulin (S) [Mass/Vol] 4.0 g/dL Normal 2.2-4.2 [facility] Comment on above: Performed By: #### L 500.2500, L501.5200, L501.9520, L100.0100, L501.4020 #### [facility] [address] [place], [address] Glucose [Mass/Vol] 90 mg/dL Normal 74-106 [facility] Comment on above: Performed By: #### L 500.2500, L501.5200, L501.9520, L100.0100, L501.4020 #### [facility] [address] [place], [address] Potassium [Moles/Vol] 4.0 mmol/L Normal 3.5-5.1 [facility] Comment on above: Performed By: #### L 500.2500, L501.5200, L501.9520, L100.0100, L501.4020 #### [facility] [address] [place], [address] Sodium [Moles/Vol] 139 mmol/L Normal 136-145 [facility] Comment on above: Performed By: #### L 500.2500, L501.5200, L501.9520, L100.0100, L501.4020 #### [facility] [address] [place], [address] T PROT 7.4 g/dL Normal 6.4-8.2 [facility] Comment on above: Performed By: #### L 500.2500, L501.5200, L501.9520, L100.0100, L501.4020 #### [facility] [address] [place], [address] Urea nitrogen [Mass/Vol] 10 mg/dL Normal 7-18 [facility] Comment on above: Performed By: #### L 500.2500, L501.5200, L501.9520, L100.0100, L501.4020 #### [facility] [address] [place], [address] Emergency Department Summary on 11-11-2023 Emergency Department Summary [facility] Medical Records Department [address] [place] [address] Emergency Department Summary 11/11/23 MR#: [id number] Acct: [id number] Name: FAUSTINA GLASGOW Rep #: [id number] : 1975 48 From: Andrea Mcmullen MD PCP: Dr. Savita Ahn MD Status:DEP ER Location: ED ADDENDUM by Dr. Andrea Mcmullen MD on 11/11/23 at 0252 EKG was obtained per nurse protocol. EKG was normal. Rate is 80. IA interval is 142 ms. Cures duration 78 ms. QT duration 382 ms. [place] is normal 11/11/23 0252 Cosigner Signature (if [...] is ) Recent Illness/Hospitalizatio n: Yes PFSH PFSH Medical History (Updated 11/11/23 @ 01:18 by [...] Constitutional Narrative (more content not included)... Normal [facility] 12 Lead EKGon 11-10-2023 12 Lead EKG [facility] [address] [place] [address] 12 Lead EKG 11/10/23 2317 MR#: [id number] Acct: [id number] Name: FAUSTINA GLASGOW Rep #: [id number] : 1975 48 From: Roel Greene MD [...] Normal sinus rhythm Normal ECG Confirmed by JOHANA WONG, ROEL ([id number]), continuity editor BIGG MORILLO ([id number]) on 11/12/2023 1:46:35 PM Referred By: MELINDA Confirmed By:ROEL GREENE MD 11/12/23 1346 Date Roel Greene MD CC: Dr. Savita Ahn MD; Dr. Andrea Mcmullen MD Signed Normal [facility] CBC W/Diff, Automatedon 09-2023 Absolute Lymph 3.03 X10 3/uL Normal 0.83-4.51 [facility] Comment on above: Performed By: #### L 500.2500, L501.5200, L501.9520, L100.0100, L501.4020 #### [facility] [address] [place], [address] Absolute Neut 4.7 X10 3/uL Normal 2.0-7.7 [facility] Comment on above: Performed By: #### L 500.2500, L501.5200, L501.9520, L100.0100, L501.4020 #### [facility] [address] [place], [address] Basophils/100 WBC (Bld) 0.6 % Normal 0-1 [facility] Comment on above: Performed By: #### L 500.2500, L501.5200, L501.9520, L100.0100, L501.4020 #### [facility] [address] [place], [address] Eosinophils/100 WBC (Bld) 1.5 % Normal 0-5 [facility] Comment on above: Performed By: #### L 500.2500, L501.5200, L501.9520, L100.0100, L501.4020 #### [facility] [address] [place], [address] Erythrocyte distribution width (RBC) [Ratio] 14.6 % Normal 11.6-14.6 [facility] Comment on above: Performed By: #### L 500.2500, L501.5200, L501.9520, L100.0100, L501.4020 #### [facility] [address] [place], [address] Hematocrit (Bld) [Volume fraction] 44.6 % Normal 37-47 [facility] Comment on above: Performed By: #### L 500.2500, L501.5200, L501.9520, L100.0100, L501.4020 #### [facility] [address] [place], [address] Hemoglobin (Bld) [Mass/Vol] 14.3 g/dL Normal 12.0-15.0 [facility] Comment on above: Performed By: #### L 500.2500, L501.5200, L501.9520, L100.0100, L501.4020 #### [facility] [address] [place], [address] IG% 0.600 Normal 0.0-0.9 [facility] Comment on above: Result Comment: IG% - Immature Granulocytes (promyelocytes, myelocytes and metamyelocytes) > 1% indicates that a LEFT SHIFT is Present. Performed By: #### L 500.2500, L501.5200, L501.9520, L100.0100, L501.4020 #### [facility] [address] [place], [address] Lymphocytes/100 WBC (Bld) 36.9 % Normal 19-41 [facility] Comment on above: Performed By: #### L 500.2500, L501.5200, L501.9520, L100.0100, L501.4020 #### [facility] [address] [place], [address] MCH (RBC) [Entitic mass] 27.2 pg Normal 27.0-32.0 [facility] Comment on above: Performed By: #### L 500.2500, L501.5200, L501.9520, L100.0100, L501.4020 #### [facility] [address] [place], [address] MCHC (RBC) [Mass/Vol] 32.1 g/dL Normal 32-36 [facility] Comment on above: Performed By: #### L 500.2500, L501.5200, L501.9520, L100.0100, L501.4020 #### [facility] [address] [place], [address] MCV (RBC) [Entitic vol] 84.8 fL Normal 81-99 [facility] Comment on above: Performed By: #### L 500.2500, L501.5200, L501.9520, L100.0100, L501.4020 #### [facility] [address] [place], [address] Monocytes/100 WBC (Bld) 3.5 % Normal 0-10 [facility] Comment on above: Performed By: #### L 500.2500, L501.5200, L501.9520, L100.0100, L501.4020 #### [facility] [address] [place], [address] Neutrophils/100 WBC (Bld) 56.9 % Normal 47-70 [facility] Comment on above: Performed By: #### L 500.2500, L501.5200, L501.9520, L100.0100, L501.4020 #### [facility] [address] [place], [address] Nucleated RBC (Bld) [#/Vol] 0 10*3/uL Normal 0-5 [facility] Comment on above: Performed By: #### L 500.2500, L501.5200, L501.9520, L100.0100, L501.4020 #### [facility] [address] [place], [address] Platelet mean volume (Bld) [Entitic vol] 10.2 fL Normal 6.2-12.0 [facility] Comment on above: Performed By: #### L 500.2500, L501.5200, L501.9520, L100.0100, L501.4020 #### [facility] [address] [place], [address] Platelets (Bld) [#/Vol] 237 10*3/uL Normal 150-450 [facility] Comment on above: Performed By: #### L 500.2500, L501.5200, L501.9520, L100.0100, L501.4020 #### [facility] [address] [place], [address] RBC (Bld) [#/Vol] 5.26 10*6/uL Normal 4.2-5.4 [facility] Comment on above: Performed By: #### L 500.2500, L501.5200, L501.9520, L100.0100, L501.4020 #### [facility] [address] [place], [address] RDW SD 44.8 fl High 35.1-43.9 [facility] Comment on above: Performed By: #### L 500.2500, L501.5200, L501.9520, L100.0100, L501.4020 #### [facility] [address] [place], [address] WBC (Bld) [#/Vol] 8.2 10*3/uL Normal 4.4-11.0 [facility] Comment on above: Performed By: #### L 500.2500, L501.5200, L501.9520, L100.0100, L501.4020 #### [facility] [address] [place], [address] Internal Medicine Office Vis amy 10-23-2023 Internal Medicine Office Visit [facility] [address] [place] [address] [place] [address] OFFICE VISIT Date of Service: 10/23/23 MR#: [id number] Acct: [id number] Name: FAUSTINA GLASGOW Rep #: [id number] : 1975 Provider: VON Beltran Age/Sex: 48/F Location: [facility] Status: Signed Intake Vital Signs 09/28/23 00:58 [...] reach out to Dr. Galindo about this. PFSH Medical History Vitamin deficiency Gallstones Carpal tunnel [...] painful urination, (more content not included)... Normal [facility] XR Knee - left 4 Viewson IMPRESSION: No acute radiographic abnormalities seen in the left knee. Manager Of Program: ROSEMARIE Transcribe Date/Time: Jan 16 2023 11:07A Dictated by : DAVID MEZA MD This examination was interpreted and the report reviewed and electronically signed by: DAVID MEZA MD on Jan 16 2023 11:09AM [facility] DIV[facility] OF RADIOLOGY * * *Final Report* [...] soft tissue swelling. DIVISION OF RADIOLOGY Provider, [facility] Seymour [facility] - 01/16/2023 * * *Final Report* * [...] radiographic abnormalities seen in the left knee. Manager Of Program: [facility] Transcribe Date/Time: Jan 16 2023 11:07A Dictated by : DAVID MEZA MD This examination was interpreted and the report reviewed and electronically signed by: DAVID MEZA MD on Jan 16 2023 11:09AM [facility] Radiology Study observation (narrative) [facility] XR Knee - left 4 ViewsOrdere d By: Ccf Provider on 01-16-2023 [facility] XR Finger - right AP and Lat eral and obliqueon 01-29-2021 IMPRESSION: Findings are suggestive of degenerative changes in the first digit. Manager Of Program: [facility] Transcribe Date/Time: Jan 29 2021 11:43A Dictated by : DAVID MEZA MD This examination was interpreted and the report reviewed and electronically signed by: DAVID MEZA MD on Jan 29 2021 11:47AM [facility] DIVISION OF RADIOLOGY * * *Final Report* [...] the metacarpophalangeal joint. DIVISION OF RADIOLOGY Provider, Mere Ahuja [facility] - 01/29/2021 * * *Final Report* * [...] of degenerative changes in the first digit. Manager Of Program: [facility] Transcribe Date/Time: Jan 29 2021 11:43A Dictated by : DAVID MEZA MD This examination was interpreted and the report reviewed and electronically signed by: DAVID MEZA MD on Jan 29 2021 11:47AM EST [facility] Radiology Study observation (narrative) [facility] XR Finger - right AP and Lat eral and obliqueOrdered By: Ccf Provider on 01-29-2021 [facility] Vital Signs Date Time Vital Sign Value Performing Clinician Jenniferi andrey 10-19-2024 15:02-0400 Body height 160.[address] Savita Ahn MD Work Phone: [facility] 10-19-2024 15:02-0400 Body mass index (BMI) [Ratio] 39.1 kg/m2 Dr. Savita Ahn MD Work Phone: [facility] 10-19-2024 15:02-0400 Body temperature 96.2 [degF] Dr. Svaita Ahn MD Work Phone: [facility] 10-19-2024 15:02-0400 Body weight 100.[address] Savita Ahn MD Work Phone: [facility] 10-19-2024 15:02-0400 Diastolic blood pressure 77 mm[Hg] Dr. Savita Ahn MD Work Phone: [facility] 10-19-2024 15:02-0400 Heart rate 83 /min Dr. Savita Ahn MD Work Phone: [facility] 10-19-2024 15:02-0400 Respiratory rate 17 /min Dr. Savita Ahn MD Work Phone: [facility] 10-19-2024 15:02-0400 SaO2% (BldA) [Mass fraction] 97 % Dr. Savita Ahn MD Work Phone: [facility] 10-19-2024 15:02-0400 Systolic blood pressure 144 mm[Hg] Dr. Savita Ahn MD Work Phone: [facility] 10-04-2024 09:03-0400 Body height 160.[address] Savita Ahn MD Work Phone: [facility] 10-04-2024 09:03-0400 Body mass index (BMI) [Ratio] 39.4 kg/m2 Dr. Savita Ahn MD Work Phone: [facility] 10-04-2024 09:03-0400 Body temperature 96.5 [degF] Dr. Savita Ahn MD Work Phone: [facility] 10-04-2024 09:03-0400 Body weight 101.[address] Savita Ahn MD Work Phone: [facility] 10-04-2024 09:03-0400 Diastolic blood pressure 72 mm[Hg] Dr. Savita Ahn MD Work Phone: [facility] 10-04-2024 09:03-0400 Heart rate 79 /min Dr. Savita Ahn MD Work Phone: [facility] 10-04-2024 09:03-0400 Respiratory rate 16 /min Dr. Savita Ahn MD Work Phone: [facility] 10-04-2024 09:03-0400 SaO2% (BldA) [Mass fraction] 96 % Dr. Savita hAn MD Work Phone: [facility] 10-04-2024 09:03-0400 Systolic blood pressure 126 mm[Hg] Dr. Savita Ahn MD Work Phone: [facility] 08-12-2024 14:29-0400 Diastolic blood pressure 54 mm[Hg] Alexx Mace DO Work Phone: [facility] 08-12-2024 14:29-0400 Heart rate 80 /min Alexx Mace DO Work Phone: [facility] 08-12-2024 14:29-0400 Systolic blood pressure 132 mm[Hg] Alexx Mace DO Work Phone: [facility] 07-16-2024 05:48-0400 Body temperature 98.1 [degF] Dr. Savita Ahn MD Work Phone: [facility] 07-16-2024 05:48-0400 Diastolic blood pressure 76 mm[Hg] Dr. Savita Ahn MD Work Phone: [facility] 07-16-2024 05:48-0400 Heart rate 72 /min Dr. Savita Ahn MD Work Phone: [facility] 07-16-2024 05:48-0400 Respiratory rate 12 /min Dr. Savita Ahn MD Work Phone: [facility] 07-16-2024 05:48-0400 SaO2% (BldA) [Mass fraction] 99 % Dr. Savita Ahn MD Work Phone: [facility] 07-16-2024 05:48-0400 Systolic blood pressure 139 mm[Hg] Dr. Savita Ahn MD Work Phone: [facility] 07-16-2024 03:02-0400 Body height 160.[address] Savita Ahn MD Work Phone: [facility] 07-16-2024 03:02-0400 Body mass index (BMI) [Ratio] 39.4 kg/m2 Dr. Savita Ahn MD Work Phone: [facility] 07-16-2024 03:02-0400 Body weight 101.[address] Savita Ahn MD Work Phone: [facility] 04-26-2024 07:59-0500 Body mass index (BMI) [Ratio] 39 kg/m2 Dr. Savita Ahn MD Work Phone: [facility] 04-26-2024 07:59-0500 Body temperature 96.8 [degF] Dr. Savita Ahn MD Work Phone: [facility] 04-26-2024 07:59-0500 Body weight 99.[address] Savita Ahn MD Work Phone: [facility] 04-26-2024 07:59-0500 Diastolic blood pressure 78 mm[Hg] Dr. Savita Ahn MD Work Phone: [facility] 04-26-2024 07:59-0500 Heart rate 87 /min Dr. Savita Ahn MD Work Phone: [facility] 04-26-2024 07:59-0500 Respiratory rate 16 /min Dr. Savita Ahn MD Work Phone: [facility] 04-26-2024 07:59-0500 SaO2% (BldA) [Mass fraction] 97 % Dr. Savita Ahn MD Work Phone: [facility] 04-26-2024 07:59-0500 Systolic blood pressure 134 mm[Hg] Dr. Savita Ahn MD Work Phone: [facility] 12-01-2023 21:13-0400 Diastolic Blood Pressure Non-Invasive 63 mm[Hg] CEE SIMONT DO [facility] 12-01-2023 21:13-0400 Heart rate 80 /min CEE SIMONT DO [facility] 12-01-2023 21:13-0400 Respiratory rate 16 /min CEE SIMONT DO [facility] 12-01-2023 21:13-0400 Systolic Blood Pressure Non-Invasive 130 mm[Hg] CEE SIMONT DO [facility] 12-01-2023 19:29-0400 Blood Pressure Location CEE SIMONT DO [facility] 12-01-2023 19:29-0400 Blood Pressure Method CEE SIMONT DO [facility] 12-01-2023 19:29-0400 Body height 160 cm CEE SIMONT DO [facility] 12-01-2023 19:29-0400 Body temperature 97.34 [degF] CEE SIMONT DO [facility] 12-01-2023 19:29-0400 Body weight 90.9 kg CEE SIMONT DO [facility] 12-01-2023 19:29-0400 Diastolic Blood Pressure Non-Invasive 81 mm[Hg] CEE BAEMELT DO [facility] 12-01-2023 19:29-0400 Heart rate 89 /min CEE HUGGINS DO [facility] 12-01-2023 19:29-0400 Respiratory rate 18 /min CEE HUGGINS DO [facility] 12-01-2023 19:29-0400 Systolic Blood Pressure Non-Invasive 145 mm[Hg] CEE HUGGINS DO [facility] 05-19-2022 13:06-0400 Body temperature 98.01 [degF] Tasha Bogner PA-C Work Phone: [facility] 05-19-2022 13:06-0400 Body weight 91.63 kg Tasha Bogner PA-C Work Phone: [facility] 05-19-2022 13:06-0400 Diastolic blood pressure 76 mm[Hg] Tasha Bogner PA-C Work Phone: [facility] 05-19-2022 13:06-0400 Heart rate 80 /min Tasha Bogner PA-C Work Phone: [facility] 05-19-2022 13:06-0400 Respiratory rate 18 /min Tasha Bogner PA-C Work Phone: [facility] 05-19-2022 13:06-0400 SaO2% (BldA) [Mass fraction] 99 % Tasha Bogner PA-C Work Phone: [facility] 05-19-2022 13:06-0400 Systolic blood pressure 110 mm[Hg] Tasha Bogner PA-C Work Phone: [facility] 11-27-2021 11:25-0400 Body temperature 96.91 [degF] Latrice Lutz APRN.NURSE PRN Work Phone: [facility] 11-27-2021 11:25-0400 Body weight 91.81 kg Latrice Lutz APRN.NURSE PRN Work Phone: [facility] 11-27-2021 11:25-0400 Diastolic blood pressure 80 mm[Hg] Latrice Lutz TOOLS ADMINISTRATOR.NURSE PRN Work Phone: [facility] 11-27-2021 11:25-0400 Heart rate 74 /min Latrice Lutz APRN.NURSE PRN Work Phone: [facility] 11-27-2021 11:25-0400 Respiratory rate 21 /min Latrice Lutz TOOLS ADMINISTRATOR.NURSE PRN Work Phone: [facility] 11-27-2021 11:25-0400 SaO2% (BldA) [Mass fraction] 99 % Latrice Lutz TOOLS ADMINISTRATOR.NURSE PRN Work Phone: [facility] 11-27-2021 11:25-0400 Systolic blood pressure 140 mm[Hg] Latrice Lutz TOOLS ADMINISTRATOR.NURSE PRN Work Phone: [facility] Encounters Encounter Date Encounter Type Care Provider Facility Start: 10-19-2024 End: 10-19-[address] Natalio Thibodeaux MD -[facility] Work Phone: Start: 10-19-2024 End: 10-19-[address] Savita Ahn MD Work Phone: -[facility] Start: 10-13-2024 End: 10-13-[address] Savita Ahn MD Work Phone: -Sleep Lab Start: 10-13-2024 End: 10-13-[address] Savita Ahn MD -Sleep Lab Work Phone: Start: 10-13-2024 End: 10-13-2024 ambulatory Savita Ahn Facility:[facility] Start: 10-05-2024 End: 10-05-[address] Savita Ahn MD Work Phone: -[facility] Start: 10-05-2024 End: 10-05-[address] Savita Ahn MD -[facility] Start: 10-04-2024 End: 10-04-[address] Savita Ahn MD -[facility] Work Phone: Start: 10-04-2024 End: 10-05-[address] Savita Ahn MD Work Phone: -[facility] Start: 08-26-2024 End: 08-26-2024 Telephone encounter Evelioaugustine Lynn Rordi DO Work Phone: Neurology Comment on above: Results Start: 08-24-2024 End: 08-24-2024 Telephone encounter Alexx Lynn Rodri DO Work Phone: Neurology Start: 08-15-2024 End: 08-16-2024 Telephone encounter Evelioaugustine Lynn Rodri DO Work Phone: Neurology Comment on above: Medication Problem Start: 08-12-2024 End: 08-12-2024 ambulatory ALEXX MACE Facility:[facility] Start: 08-12-2024 End: 08-12-2024 Patient encounter procedure Evelioaugustine Lynn Rodri DO Work Phone: Neurology Comment on above: Paresthesia (Primary Dx); Meningioma (HCC) Start: 08-12-2024 End: 08-12-2024 ambulatory ALEXX MACE Facility:[facility] Start: 07-16-2024 End: 07-16-2024 Emergency department patient visit Dr. Savita Ahn MD Work Phone: -Emergency Department Work Phone: Start: 06-07-2024 End: 06-07-2024 ambulatory SAVITA AHN MD Facility:[facility] Start: 06-03-2024 End: 06-03-[address] Savita Ahn MD Work Phone: [facility] Work Phone: Start: 06-03-2024 End: 06-03-[address] Savita Ahn MD -Physical Therapy Work Phone: Start: 06-03-[address] Savita ho MD -Physical Therapy Work Phone: Start: 04-26-2024 End: 04-26-[address] Savita Ahn MD -[facility] Work Phone: Start: 04-26-2024 End: 04-26-2024 ambulatory Savita Ahn Facility:[facility] Start: 04-25-2024 End: 04-25-[address] Savita Ahn MD -Laboratory, [place] Start: 04-25-2024 End: 04-25-2024 ambulatory Savita Ahn Facility:[facility] Start: 02-10-2024 End: 02-10-2024 ambulatory SAVITA AHN MD Facility:[facility] Start: 01-25-2024 End: 01-25-2024 Patient encounter procedure KARY GALINDO MD [facility] Start: 01-06-2024 ambulatory Savita Ahn Facility :[facility] Start: 01-06-2024 End: 01-06-2024 ambulatory Savita Ahn Facility:[facility] Start: 01-01-2024 End: 01-01-2024 Emergency department patient visit Thanh Mcdoanld Facility:[facility] Start: 12-28-2023 End: 12-28-2023 ambulatory KARY GALINDO MD Facility:[facility] Start: 12-28-2023 End: 12-28-2023 Patient encounter procedure KARY GALINDO MD [facility] Start: 12-25-2023 End: 12-25-2023 ambulatory KARY GALINDO MD Facility:[facility] Start: 12-25-2023 End: 12-25-2023 Patient encounter procedure KARY GALINDO MD [facility] Start: 12-23-2023 ambulatory Savita Ahn Facility :[facility] Start: 12-16-2023 End: 12-16-2023 ambulatory Savita Ahn Facility:[facility] Start: 12-04-2023 End: 12-04-2023 Emergency department patient visit Savita Dowy Facility:[facility] Start: 12-01-2023 End: 12-01-2023 Emergency department patient visit CEE HUGGINS DO [facility] Start: 11-26-2023 End: 11-26-2023 Emergency department patient visit [facility] Facility:[facility] Start: 11-10-2023 End: 11-11-2023 [facility] Start: 10-23-2023 End: 10-23-2023 ambulatory [facility] Facility:[facility] Start: 08-13-2023 Telephone encounter No Pcp AMANUEL gonsales Comment on above: Referral faxed to [facility] Start: 08-07-[address] Savita Ahn MD Work Phone: [facility] Start: 08-04-2023 End: 08-04-2023 Patient encounter procedure Billy LONGORIA Work Phone: [facility] Comment on above: Dizziness (Primary D x) Start: 02-11-2023 ambulatory No Pcp TOOLS ADMINISTRATOR [facility] [place] Start: 02-06-2023 ambulatory No Pcp TOOLS ADMINISTRATOR [facility] [place] Start: 01-16-2023 End: 01-16-2023 Subsequent hospital visit by physician Zulma [facility] Work Phone: Radiology Comment on above: Acute pain of left k nee [M25.562] Start: 05-19-2022 End: 05-19-2022 Office outpatient visit 25 minutes Tasha Souza PA-C Work Phone: [facility] Comment on above: Acute frontal sinusi tis, recurrence not specified (Primary Dx) Start: 11-27-2021 End: 11-27-2021 Patient encounter procedure Latrice Lutz APRN.CNP Work Phone: [facility] Comment on above: Acute otitis media, right (Primary Dx) Start: 09-04-2021 ambulatory Alexx Segura MD Work Phone: Internal [facility] [place] Start: 01-29-2021 End: 01-29-2021 Subsequent hospital visit by physician Zulma [facility] Than[facility] Work Phone: Radiology Comment on above: Pain of right thumb [M79.644] Procedures Date Procedure Procedure Detail Performing Clinician Start: 10-13-2024 Screening mammography Félix Ahn MD Work Phone: Start: 07-16-2024 Plain chest X-ray Dr. Ata Ahn MD Work Phone: Start: 07-16-[address] Savita Ahn MD Work Phone: Start: 01-16-2023 Radiologic exam knee complete 4/more views Deepti Hernandez TOOLS ADMINISTRATOR.NURSE PRN Work Phone: Start: 01-29-2021 Radex fingr minimum 2 views Danielle Car TOOLS ADMINISTRATOR.NURSE PRN Work Phone: Start: 10-07-2019 Lipid 1996 panel - S roxanne or Plasma No Pcp TOOLS ADMINISTRATOR Start: 11-01-2018 Adult depression screening assessment Alexx Segura MD Work Phone: Start: 01-28-2012 Mammography Slick Segura MD Work Phone: Screening for malign ant neoplasm of cervix Screening for malignant neoplasm of cervix Dr. Savita Ahn MD Work Phone: Plan of Treatment Date Care Activity Detail Author Start: 12-30-2028 Urine microalbumin profile [facility] Start: 04-07-2025 End: 04-07-2025 Patient encounter procedure 04/07/2025 2:00 PM EST Office Visit Neurology [address] [place] [address] [place] [address] [place], [place] [id number] Return in about 6 months (around 02/11/2025). Neurology Comment on above: Return in about 6 mo nths (around 02/11/2025). Start: 11-07-2024 Influenza vaccination Influenz a Vaccine (Season Ended) [facility] Start: 10-06-2024 Lipid 1996 panel - S roxanne or Plasma Lipid Screening [facility] Start: 10-06-2024 Lipid panel Lipid Screening [facility] Start: 10-06-2024 LIPID SCREEN LIPID SCREEN [facility] Start: 07-16-2024 [facility] Start: 07-16-2024 [facility] Start: 04-26-2024 Patient referral [facility] Work Phone: Start: 11-08-2023 Covid-19 Vaccine ( season) Covid-19 Vaccine ( season) [facility] Start: 11-08-2023 Covid-19 Vaccine ( season) Covid-19 Vaccine ( season) [facility] Start: 11-08-2023 Influenza vaccination C [facility] Start: 06-01-2023 Screening for malign ant neoplasm of lung Lung Cancer Screening [facility] Start: 06-01-2023 Shingrix Vaccine (1 of 2) Frank grix Vaccine (1 of 2) [facility] Start: 03-09-2023 Behavioral Health Screening Behavioral Health Screening [facility] Start: 11-07-2022 Covid-19 Vaccine ( season) Covid-19 Vaccine ( season) [facility] Start: 11-07-2022 Influenza vaccination Influenza Vacc ine (#1) [facility] Start: 03-09-2022 DEPRESSION ASSESSMENT DEPRESSION ASS ESSMENT [facility] Start: 11-07-2021 Influenza vaccination C [facility] Start: 11-05-2021 DIABETES SCREEN [facility]CREEN [facility] Start: 11-05-2021 Diabetes Screening Diabetes Screenin g [facility] Start: 10-06-2020 ANNUAL PCP TEAM MARBLE RUBBER MALIK DISEASE VISIT ANNUAL PCP TEAM CHRONIC DISEASE VISIT [facility] Start: 12-31-2019 PNEUMOCOCCAL (2 - PCV) PNEUMOCOCCAL (2 - PCV) [facility] Start: 12-31-2019 Pneumococcal vaccination [facility] Start: 12-31-2019 Pneumococcal Vaccine : 50+ (2 of 2 - PCV) Pneumococcal Vaccine: 50+ (2 of 2 - PCV) [facility] Start: 11-02-2019 Adult depression screening assessment DEPRESSION SCREENING [facility] Start: 2018 COLOGUARD (FIT-DNA) COLOGUARD (FIT-D NA) [facility] Start: 2018 Colonoscopy COLONOSCOPY [facility] Start: 2018 COLORECTAL CANCER SCREENING COLORECTAL CANCER SCREENING [facility] Start: [address] COLONOGRAPHY [facility] Start: 2018 FECAL OCCULT BLOOD FECAL OCCULT BLOO D [facility] Start: 2018 Screening for malign ant neoplasm of colon [facility] Start: 2018 SIGMOIDOSCOPY SIGMOIDOSCOPY [facility] Start: 01-27-2017 HPV TESTING HPV TESTING [facility] Start: 01-27-2017 PAP TESTING PAP TESTING [facility] Start: 01-27-2017 Screening for malign ant neoplasm of cervix [facility] Start: 2013 Mammography [facility] Start: 2013 Screening for malign ant neoplasm of breast Mammogram Screening [facility] Start: 1992 Hepatitis B Vaccine (1 of 3 - 19+ 3-dose series) Hepatitis B Vaccine (1 of 3 - 19+ 3-dose series) [facility] Start: 06-01-1991 Anxiety Screening Anxiety Screening [facility] Start: 06-01-1991 Depression Screening Depression Scre ening [facility] Start: 06-01-1991 HEPATITIS C SCREENING HEPATITIS C [facility] Start: 06-01-1991 Hepatitis C screening Hepatitis C [facility] Start: 06-01-1991 HIV SCREENING HIV SCREENING [facility] Start: 06-01-1991 HIV screening HIV Screening [facility] Start: 1978 COVID-19 VACCINE (#1) COVID-19 VACCI NE (#1) [facility] Start: 1973 COVID-19 VACCINE (#1) COVID-19 VACCI NE (#1) [facility] Start: 1975 HEPATITIS B (1 of 3 - 3-dose series) HEPATITIS B (1 of 3 - 3-dose series) [facility] Start: 1975 Hepatitis B Vaccine (1 of 3 - 3-dose series) Hepatitis B Vaccine (1 of 3 - 3-dose series) [facility] End: 08-12-2025 EEG MONITORING ADULT EMU (24 HOUR WITH VIDEO) EEG MONITORING ADULT EMU (24 HOUR WITH VIDEO) NEUROLOGY Routine Paresthesia 1 Occurrences starting 08/12/2024 until 08/12/[address] [facility] Work Phone: Comment on above: 1 Occurrences starti ng 08/12/2024 until 08/12/2025 Patient Education ED Chest Pain, Noncardiac ED Chest Pain, Uncertain Cause [facility] Work Phone: Patient referral [facility] Work Phone: Polysomnography [facility] End: 10-04-2022 Screening mammography bi 2-view breast inc cad KIA SCREENING Radiology Routine Encounter for screening mammogram for breast cancer 1 Occurrences starting 09/04/2021 until 10/04/[address] [facility] Work Phone: Comment on above: 1 Occurrences starti ng 09/04/2021 until 10/04/2022 Thyroid stimulating hormone measurement [facility] Tobacco use cessatio n education [facility] Tobacco use cessatio n education [facility] Immunizations Immunization Date Immunization Notes Care Provider [facility] 12-30-2018 pneumococcal polysaccharide vaccine, 23 valent Alexx Segura MD Work Phone: [facility] 12-30-2018 tetanus toxoid, redu omar diphtheria toxoid, and acellular pertussis vaccine, adsorbed Alexx Segura MD Work Phone: [facility] 08-05-2013 tetanus toxoid, redu omar diphtheria toxoid, and acellular pertussis vaccine, adsorbed Alexx Segura MD Work Phone: [facility] Payers Date Payer Category Payer Medicaid [facility] [id number] 2023 Self-pay 2023 Unknown [id number] 2023 Unknown [id number] 2018 Unknown MMO MMO [employer]PER[employer] PLUS [id number] 2018-Present [phone] [address] [place] [address] PPO [id number]. [id number] 2018 Unknown [id number]. 1.13.159.2.7.3. [id number] 1975 Unknown [id number] 2.16.840.1.571708.3.579.2.627 1975 Unknown [id number] 2.16.840.1.672534.3.579.2.627 1975 Unknown [id number] 2.16.840.1.995794.3.579.2.627 1975 Unknown [id number] 2.16.840.1.823294.3.579.2.627 1975 Unknown [id number] 2.16.840.1.452490.3.579.2.627 Unknown [id number] 2.16.840.1.738628.3.579.2.462 Unknown [id number] 2.16.840.1.805299.3.579.2.462 Unknown [id number] 2.16.840.1.111027.3.579.2.462 Unknown [id number] 2.16.840.1.022875.3.579.2.462 Unknown [id number] 2.16.840.1.680939.3.579.2.462 Unknown [id number] 2.16.840.1.120550.3.579.2.462 Unknown [id number] 2.16.840.1.445590.3.579.2.462 Unknown [id number] 2.16.840.1.475680.3.579.2.462 Unknown [id number] 2.16.840.1.795532.3.579.2.462 Unknown [id number] 2.16.840.1.782059.3.579.2.462 Unknown [id number] 2.16.840.1.720401.3.579.2.462 Unknown [id number] 2.16.840.1.348721.3.579.2.462 Unknown [id number] 2.16.840.1.178388.3.579.2.462 Unknown [id number] 2.16.840.1.069293.3.579.2.462 Unknown [id number] 2.16.840.1.118622.3.579.2.462 Unknown [id number] 2.16.840.1.992626.3.579.2.462 Unknown [id number] 2.16.840.1.887861.3.579.2.462 Social History Date Type Detail Facility Start: 11-27-2021 End: 10-04-2024 Tobacco smoking status NHIS Smokes tobacco daily [facility] History of tobacco use Cigarette Smoker C [facility] Start: 02-18-2021 End: 08-12-2024 Alcohol intake Current drinker of alcohol (finding) [facility] Start: 02-18-2021 History SDOH Alcohol Comment rarely, once a year [facility] Start: 1975 Sex Assigned At Not on file C [facility] Start: 11-27-2021 End: 08-12-2024 Cigarettes smoked current (pack per day) - Reported 1 [facility] Start: 12-30-2018 End: 11-27-2021 Tobacco use and exposure Smokeless tobacco non-user [facility] Start: 12-30-2020 End: 11-27-2021 Exposure to SARS-CoV-2 (event) Not sure [facility] Work Phone: Start: 01-16-2023 End: 08-12-2024 Tobacco use panel [facility] Adult Depression Screening Assessment 0 [facility] Start: 12-30-2018 Alcohol Comment rarely [facility] Start: 1975 Sex Assigned At Female W [facility] Functional Status Date Assessment Result Facility 12-01-2023 Functional Status Independent [facility] joceline [facility] Mental Status Date Assessment Result Facility 07-16-2024 Cognitive function Voice/Name [facility] Work Phone: 12-01-2023 Mental Status Orientation Oriented x 4 [facility] Clinical Notes 01-29-2021 to 10-04-2024 Note Date & Type Note Facility 10-04-2024 Evaluation note Diagnosis Onset Date Resolution Dizziness acute October 04 8:53am Meningioma acute October 04 8:53am Non-compliance noneactive October 04, 2024 8:53am High glucose level noneactive September 072024 8:53am Moderate major depression noneactive October 04, 2024 8:53am Encounter for screening for malignant neoplasm of colon noneactive October 04, 2024 8:53am Smokes cigarettes noneactive October 042024 8:53am Screening for cardiovascular condition noneactive October 042024 8:53am Palpitations noneactive October 04 8:53am Screening for malignant neoplasm of cervix noneactive October 04 8:53am Suspected sleep apnea noneactive Sep 8:53am Elevated TSH noneactive October 04 025 8:53am Chronic low back pain with bilateral sciatica noneactive September 8:53am Screening for breast cancer noneactive October 04, 2024 8:53am Gastroesophageal reflux disease noneactive October 04, 2024 8:53am [facility] Work Phone: 1(731) 786-640707-29-2025 Evaluation note* Diagnosis Onset Date Resolution Status Admit Date Dizziness acute October 04 8:53am Meningioma acute October 04 8:53am Non-compliance noneactive October 04, 2024 8:53am High glucose level noneactive September 072024 8:53am Moderate major depression noneactive October 04, 2024 8:53am Encounter for screening for malignant neoplasm of colon noneactive October 04, 2024 8:53am Smokes cigarettes noneactive October 042024 8:53am Screening for cardiovascular condition noneactive October 04, 2024 8:53am Palpitations noneactive October 04 8:53am Screening for malignant neoplasm of cervix noneactive October 04 8:53am Suspected sleep apnea noneactive Sep 8:53am Elevated TSH noneactive October 04 8:53am Chronic low back pain with bilateral sciatica noneactive October 04 8:53am Screening for breast cancer noneacti ve October 04, 2024 8:53am Gastroesophageal reflux disease none active October 04, 2024 8:53am Encounter for screening for malignant neoplasm of colon acute Augu st 2024 2:48pm 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, 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 2:48pm Suspected sleep apnea noneactive Oct ust 2024 2:48pm [facility] Work Phone: 1(631) 719-654607-01-2025 Evaluation note* Diagnosis Onset Date Resolution Status Admit Date Dizziness acute October 04 8:53am Meningioma acute October 04 8:53am Moderate major depression noneactive October 04, 2024 8:53am Smokes cigarettes noneactive October 042024 8:53am Palpitations noneactive October 04 8:53am Perineural cyst noneactive September 8:53am Elevated TSH noneactive October 04 8:53am Chronic low back pain with bilateral sciatica noneactive October 04 8:53am Gastroesophageal reflux disease none active October 04, 2024 8:53am [facility] Work Phone: 1(320) 991-900706-20-2025 Telephone encounter Note* Telephone Encounter - Alexx Mace DO - 08/26/2024 12:43 PM EDT Blood tests from 08/12/2024 including DARYL and immunofixation were both negative/normal. [facility]06-20-2025 Miscellaneous Notes* Telephone Encounter - Alexx [...] calling: self Call patient at: at home [phone] (home) (work) [phone] (cell) Was an appointment scheduled: No Closing statement: Results or non-symptom based questions: Thank you for calling [facility], your call will be returned within the next business day. Isidra Pollard documented in this encounterMer[facility]06-[facility]-2025 Telephone encounter Note * Telephone Encounter - Isidra Johnson - 08/26/2024 12:30 PM EDT Patient doesn't have MyChart and is requesting a call back with there most recent lab results. Patient has been identified by name and birthdate. Duration of symptoms: N/A Person calling: self Call patient at: at home [phone] (home) (work) [phone] (cell) Was an appointment scheduled: No Closing statement: Results or non-symptom based questions: Thank you for calling [facility], your call will be returned within the next business day. Isidra Pollard [facility]06-18-2025 Telephone encounter Note* Telephone Encounter - Hannah Patterson LPN - 08/24/2024 7:27 PM EDT 08/24/2024 Records received from [facility] for review by he has reviews and initialed copies. The records have been sent to chart scanning. Hannah Patterson LPN [facility]06-18-2025 Miscellaneous Notes* Telephone Encounter - Hannah Patterson LPN - 08/24/2024 7:27 PM EDT 08/24/2024 Records received from [facility] for review by he has reviews and initialed copies. The records have been sent to chart scanning. Hannah Patterson LPN documented in this encounterMercy [facility]06-09-2025 Telephone encounter Note * Telephone Encounter - Alexx Mace DO - 08/15/2024 9:22 PM EDT Prescription has been sent as requested. Note is still in progress. [facility]06-09-2025 Miscellaneous Notes* Telephone Encounter - Alexx [...] sent to pharmacy. Please send to [facility] in [place]. Patient has been identified by name and birthdate. Duration of symptoms: N/A Person calling: self Call patient at: on cell [phone] (home) (work) [phone] (cell) Was an appointment scheduled: No Closing statement: Results or non-symptom based questions: Thank you for calling [facility], your call will be returned within the next business day. Rose Best documented in this encounterMercy [facility] Hospital06-09-2025 Telephone encounter Note * Telephone Encounter - Rose Best - 08/15/2024 3:00 PM EDT Faustina is calling Alexx Mace DO today with concern regarding increased gabapentin Rx. Pt states at her appt on Thursday Dr. Mace recommended she increase gabapentin from 400mg to 600mg,however prescription was not sent to pharmacy. Please send to [facility] in [place]. Patient has been identified by name and birthdate. Duration of symptoms: N/A Person calling: self Call patient at: on cell [phone] (home) (work) [phone] (cell) Was an appointment scheduled: No Closing statement: Results or non-symptom based questions: Thank you for calling [facility], your call will be returned within the next business day. Rose Best [facility]06-06-2025 Instructions* Patient Instructions* Alexx Mace DO [...] at the current one. documented in this encounterMercy Health West Hospital06-06-2025 NoteHNO ID: [id number] Author: ALEXX MACE DO Service: ? Author Type: Physician Type: Progress Notes Filed: 08/21/2024 17:27 Note Text: [facility] [place] New Patient Consultation August 12, 2024 ++ [...] chest pain, +palpitations, -skipp (more content not included)...[facility]06-06-2025 History of Present illness Narrative* Alexx Mace, DO - 08/12/2024 12:52 PM EDT [facility] [place] New Patient Consultation August 12, 2024 ++ [...] Sincerely, Alexx Mace D.O. documented in this encounterMercy Health West Hospital05-10-2025 Discharge summary [facility] Medical Records Department [address] [place] [address] Emergency Department Summary 07/16/24 MR#: [id number] Acct: [id number] Name: FAUSTINA GLASGOW Rep #:[id number] : 1975 49 From: Adal Dempsey MD [...] last few days. She is a smoker. [facility] Medical History Seizure disorder Meningioma [...] STEMI. I reviewed her prior records and shedoes have history of chest pain and workup [...] % (Auto) 56.2 Lymph % (Auto) 37.9 [place] % (Auto) 3.6 Eos % (Auto) 1.3 [...] No evidence of acute disease. Reading Location: [facility] Discharge Plan Triage Chief Complaint: Palpitations ED [...] with new or worsening symptoms. Print Language: Montenegrin Disposition Disposition: Home, Self Care What to do if you have Problems For any increased pain, shortness of breath, bleeding, nausea or vomiting, chestpain, or any unexpected problems, contact your Primary Care Provider. Call [facility] ([phone]) or report tothe closest Emergency Room. Call 911 if necessary. 07/16/24 2980 Cosigner Signature (if applicable): CC: Dr. Savita Ahn MD ~ Signed [facility]05-10-2025 Radiology Diagnostic study note [facility] Imaging Services [address] [place] [address] Chest 1 View (Portable) MR#: [id number] Acct: [id number] Name: FAUSTINA GLASGOW Rep #: [id number] : 1975 F 49 From: Gm Obrien MD PCP: Dr. Saviat Ahn MD Status: PRE ER Study:Chest 1 View (Portable) Date of Exam: 07/16/24 Exam# [id number] Ordering Dr: Adal Dempsey MD PROCEDURE: CHEST 1 VIEW (PORTABLE) 07/16/2024 REASON FOR EXAM: CHEST PAIN TECHNIQUE: Frontal view of the chest. COMPARISON: 01/01/2024 FINDINGS: The lungs appear clear. Pulmonary vascularity appears within limits. No pleural effusion. Cardiac and mediastinal contours appear within limits. The visualized osseous structures appear within limits. RAD/Chest 1 View (Portable) IMPRESSION: No evidence of acute disease. Reading Location: [id number] CC: Dr. Adal Dempsey MD; Dr. Savita Ahn MD ~ Manager Of Program: Signed [facility]05-08-2025 Discharge summary Author Fredo Sepulveda [facility] Note Date/Time July 14, 2024 4:04pm [facility] Physical [facility] [address] [place] [address] / REHABILITATION SERVICES DISCHARGE SUMMARY MR#: [id number] Acct: [id number] Name: FAUSTINA GLASGOW Rep #: [id number] : 1975 49 From: Fredo Sepulveda DPT, OCS, CSCS Referring Dr.: Dr. Savita Ahn MD Status: REG RCR Insurance: [facility] SELF PAY INSURANCE Discharge Summary D/C [...] leg pain worse. [facility]. HEP going well. Sleep [...] please feel free to call me at [phone]. Thank you for the referral of thispatient. Sincerely, Fredo Sepulveda DPT, OCS, CSCS Balance/Gait/Functional tests Balance/Special Test Scores Oswestry Low Back Score: 17 Improvement % Improvement: 3 <Electronically signed by Fredo Sepulveda DPT, CARMEL, CSCS> 07/14/24 1604 CC: Dr. Savita Ahn MD ~ EBG Signed [facility] Work Phone: 1(210) 299-703305-08-2025 Discharge summary [facility] [address] [place] [address] [address] [place] [address] / REHABILITATION SERVICES DISCHARGE SUMMARY MR#: [id number] Acct: [id number] Name: FAUSTINA GLASGOW Rep #: [id number] : 1975 49 From: Fredo Sepulveda DPT, CARMEL, CSCS Referring Dr.: Dr. Savita Ahn MD Status: REG RCR Insurance: [employer] SELF PAY INSURANCE Discharge Summary D/C summary: [...] leg pain worse. Walking to back of [place] w[place] problem. HEP going well. Sleep is [...] please feel free to call me at [phone]. Thank you for the referral of thispatient. Sincerely, Fredo Sepulveda, DPT, OCS, CSCS Balance/Gait/Functional tests Balance/Special Test Scores Oswestry Low Back Score: 17 Improvement % Improvement: 3 07/14/24 3434 CC: Dr. Savita Ahn MD ~ EBG Signed [facility]02-18-2025 Evaluation note* Diagnosis Onset Date Resolution Status Admit Date Dizziness acute April 26, 2024 7:56am Meningioma acute April 26, 2024 7:56am Moderate major depression noneactive April 26, 2024 7:56am Smokes cigarettes noneactive uar y 2024 7:56am Palpitations noneactive April 7:56am Influenza vaccination declined nonea ctive April 26, 2024 7:56am Perineural cyst noneactive April 26, 2024 7:56am Elevated TSH noneactive April 7:56am Chronic low back pain with bilateral sciatica noneactive April 7:56am Gastroesophageal reflux disease noneactive April 26, 7:56am [facility] Work Phone: 1(986) 310-598710-18-2024 Note ORIGINAL EXAMINATION: MRI OF THE THORACIC [...] 3. Scattered perineural cysts. Interpreted by: Terence Kaumfan Preliminary Report By: Terence Kaufman Electronically signed By Terence Kaufman Dictated Date: 12/25/2023 4:13:29 PM Prelim Date: 12/25/2023 4:23:33 PM Sign Date: 12/25/2023 4:23:33 PM Ordering Provider: [facility]10-18-2024 Note ORIGINAL EXAMINATION: MRI OF THE CERVICAL [...] Sign Date: 12/25/2023 4:25:43 PM Ordering Provider: [facility]09-24-2024 Hospital Discharge instructions Patient Education 12/01/2023 21:04:38 [...] face You have trouble talking or seeing 5399-6[address] [employer] [place] [address], [place] [address]. All rights reserved. This information is not intended as a substitute for professional medical care. Always follow yourhealthcare professional's instructions. Follow Up Care 12/01/2023 19:22:21 With:SAVITA AHN MD Address: [facility] [address] [place] [address]- When:2-4 days With:ANTONETTE DELGADO DO Address: [address] [place] [address] [address] [place] [address]- [phone] When:2-4 days [facility] 09-24-2024 Note Discharge Instructions Thank you for allowing [facility] to assist you with your healthcare needs. The following is importantdischarge information regarding your hospital visit. What to Do Next Instructions from Your Care Team No qualifying data available. Post Acute Orders No qualifying data available. You Need to Schedule the Following Appointments Follow Up with SAVITA AHN MD When:Within 2-4 days Where:[facility] [address] [place] [address]- Follow Up with ANTONETTE DELGADO DO When:Within 2-4 days Where:[address] [place] [address] [address] [place] [address]- [phone] Allergies NKA Medications Please ask your primary [...] caffeine (a SEET a MIN oh fen, fausto haddad jorge luis, and MARIMAR henderson) Esgic, Fioricet, Zebutal What is the most [...] Acetaminophen is a pain reliever and fever lost and found clerk. Butalbital is in a group of drugs [...] may report side effects to FDA at 2-267-ZQW-4481. What other drugs will affect acetaminophen, butalbital, [...] acetaminophen, butalbital, and caffeine, including prescription and puep-ijr-raherws medicines, vitamins, and herbal products. Tell your [...] to ensure that the information provided by [employer]. ('[employer]') is accurate, up-to-date, and complete, but no guarantee is made to that effect. Drug information contained herein may be time sensitive. [employer] information has been compiled for use by healthcare practitioners and consumers in the [place] and therefore [employer] does not warrant that uses outside of the [place] are appropriate, unless specifically indicated otherwise. [employer] drug information does not endorse drugs, diagnose patients or recommend therapy. [employer] drug information isan informational resource designed to [...] effective or appropriate for any given patient. [employer] does not assume any responsibility for any aspect of healthcare administered with the aid of information [employer] provides. The information contained herein is not intended to cover all possible uses, directions, precautions, warnings, drug interactions, allergic reactions, or adverse effects. If you have questions about the drugs you are taking, check with your doctor, nurse or pharmacist. Copyright 4043-8358 [employer]. Version: 8.01. Revision Date: 03/29/2021. Education Materials [...] face You have trouble talking or seeing 1098-8691 [employer]. [address] [place] [address], [place] [address]. All rights reserved. This information is not intended as a substitute for professional medical care. Always follow yourhealthcare professional's instructions. Additional Information VACCINATE! IT SAVES LIVES! Members of the community who have not yet received the COVID-19 vaccine and would like to receive it can visit one of [facility] vaccine clinics. There are many vaccine clinic locations within the [facility]. For locations and available times, please visit www.gettheshot.coronavirus.[place].gov/. It is important to note that some COVID mobile vaccine clinics are held outdoors and may be canceled in rainy or stormy conditions. To learn more about pediatric vaccinations (ages 5-11), we invite you to visit the [facility] webpage. https://www.[employer].org/pages/9756-Otvih-Udfdmautdsj-Mlgpupnfhy-Rajuu-Djd stions.htmlTo learn more about the COVID-19 vaccine, we invite you to visit the CDC website for a list of frequently asked questions. https://www.cdc.gov/coronavirus/2019-ncov/vaccines/faq.html [facility] Patient Portal Access Instructions: Stay connected with your healthcare team and access your personal medical information anytime with the [facility] Patient Portal. If you would like a full copy of your medical records please contact the [facility] Medical Records Department Thursday through Thursday between 8a.m. and 4:30p.m. Please follow the directions below to access the portal: 1.Access the email account you provided upon registration to the hospital.2.Look for an invitation email from [facility].3.Open the email and access the invitation link: Accept Invitation to [facility]4.Fill in the required oviedo to create your account. Sign into [email or web address].[email or web address] with your username and password that you [...] you will allow to register on the [employer] Patient Portal for access to your information. You can also access the [employer] Patient Portal on the [employer]. Simply click on Health Records under [employer] and then click on the [employer]pper logo. HOW TO SAFELY DISPOSE OF PRESCRIPTION [...] Call your local pharmacy or go to http://get2play.PA Semi/8M3La8a to find one close to you.3.Make use of household items: Use cat litter or old coffee grounds to dispose medications if other options arenot available. Mix your drugs with these household products, seal them in an airtight container andthrow it into the garbage. Call [facility]: [phone] to be sure your drugs can be [...] been reviewed and explained to me and I,CAROLINA FAUSTINA K understand my current condition and have read and understand these discharge instructions. I have received a written copy of the plan/instructions. If I have questions, I am aware that I should contact my doctor. 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 Phone call placed to [facility] spoke to nurse advised of scheduling process (referral to Neurosurgery our office would need MRI testing results) none sent with original referral. [facility] will fax requested document then office will reach out to patient to initiate scheduling. Pau Briggs LPN [facility]06-06-2024 Miscellaneous Notes* Telephone Encounter - Pau Briggs LPN - 08/13/2023 10:38 AM EDT Referral received by fax in two parts on referral page, second contained office visit (patient was new to [facility] for Emergency Room follow up) not seen prior. Phone call placed to [facility] spoke to nurse advised of scheduling process (referral to Neurosurgery our office would need MRI testing results) none sent with original referral. [facility] will fax requested document then office will reach out to patient to initiate scheduling. Pau Briggs LPN * Telephone Encounter - Shane Lee RN - 08/13/2023 8:57 AM EDT [facility] phoned asking if neurology dept received a referral from them for this patient. They faxed one on 07-10-23 and 08-12-23. Verified correct fax number. Dx: neuralgia, benign neoplasm. They also faxed a referral to neuro surgeon. Asking office let them know if you received the referral. documented in [facility]Mer[facility]-2024 Telephone encounter Note * Telephone Encounter - Shane Lee RN - 08/13/2023 8:57 AM EDT [facility] phoned asking if neurology dept received a referral from them for this patient. They faxed one on 07-10-23 and 08-12-23. Verified correct fax number. Dx: neuralgia, benign neoplasm. They also faxed a referral to neuro surgeon. Asking office let them know if you received the referral. [facility]05[facility] History of Present illness Narrative* Aberegg, Krislyn P, PA - 08/04/2023 10:40 AM EDT 48-year-old [...] Did offer to schedule an appointment with [facility] PCP to establish care, but patient does not want to travel. She will keep her appointment with [facility] PCP Thursday and go to ER now for evaluation of her dizziness. [facility] History of Present illness Narrative* JonesKetty - 02/11/2023 2:34 PM EST POPULATION HEALTH NAVIGATION OUTREACH Action/ RP OUTREACH: Contacted patient to schedule [facility] [...] 11, 2023 2:34 PM documented in [facility] History of Present illness Narrative* Ketty Goldman - 02/06/2023 12:33 PM EST POPULATION HEALTH NAVIGATION OUTREACH Action/FYI RP OUTREACH: [...] 06, 2023 12:33 PM documented in [facility]Mer[facility]11-10-[facility]23 History of Present illness Narrative* Lisy [...] 16, 2023 10:55 AM documented in [facility]Mer[facility]03-13-[facility]23 History of Present illness Narrative* Tasha [...] plan. Tasha Souza PA-C documented in this encounterMer[facility]09-21-2022 History of Present illness Narrative* Latrice Lutz APRN.NURSE PRN - 11/27/2021 11:39 AM EDT CC: Patient [...] plan. Latrice Lutz APRN.DERIAN documented in this [facility]Mer[facility]11-23-2021 History of Present illness Narrative* Stanley [...] 29, 2021 11:21 AM documented in this encounterMercy [facility] HospitalDischarge summary Author Adal Dempsey [facility] Note Date/Time July 16, 2024 5:49a m [facility] Medical Records Department [address] [place] [address] Emergency Department Summary 07/16/24 MR#: [id number] Acct: [id number] Name: FAUSTINA GLASGOW Rep #:[id number] : 1975 49 From: Adal Dempsey MD [...] last few days. She is a smoker. [facility] Medical History Seizure disorder Meningioma [...] % (Auto) 56.2 Lymph % (Auto) 37.9 [place] % (Auto) 3.6 Eos % (Auto) 1.3 [...] No evidence of acute disease. Reading Location: [facility] Discharge Plan Triage Chief Complaint: Palpitations ED [...] with new or worsening symptoms. Print Language: Montenegrin Disposition Disposition: Home, Self Care What to do if you have Problems For any increased pain, shortness of breath, bleeding, nausea or vomiting, chestpain, or any unexpected problems, contact your Primary Care Provider. Call [facility] ([phone]) or report to the closest Emergency Room. Call 911 if necessary. 07/16/24 0549 <Electronically signed by Adal Dempsey MD> Cosigner Signature (if applicable): CC: Dr. Savita Ahn MD ~ Signed [facility] Work Phone: Evaluation + Plan note No data available for this section [facility] Evaluation + Plan note Future Appointments Appointment Date:12/28/2023 02:00:00 PM Scheduled Provider: Location:[facility] Appointment Type:MRI Spine Lumbar w/ + w/o Contrast Future Scheduled Tests Radiology* MRI Spine Lumbar w/ + w/o Contrast 12/28/23 [facility] Evaluation note* Diagnosis Encounter for screening mammogram for breast cancer documented in this encounter [facility] note* Diagnosis Acute otitis media, right- Primary Unspecified otitis media documented in this encounter [facility] note* Diagnosis Acute frontal sinusitis, recurrence not specified- Primary documented in this encounter [facility] note* Diagnosis Dizziness- Primary Dizziness and giddiness documented in this encounter [facility] note* Diagnosis Acute pain of left knee documented in this encounter [facility] note* Diagnosis Pain of right thumb Pain in limb documented in this encounter [facility] note* Diagnosis Paresthesia- Primary Disturbance of skin sensation Meningioma (HCC) Benign neoplasm of cerebral meninges [facility] Dis[facility] instructions No data available for this section [facility] Hospital Discharge instructions Additional Instructions Follow-up with your primary care provider. Follow-up with your neuromuscular physician as well. Return with new or worsening symptoms.[facility] Work Phone: Progress note No data available for this section [facility] Reason for referral (narrative)* Diagnostic Procedure Only (Routine) - Pending Review Specialty Diagnoses / Procedures Referred By Contac t Referred To Contact BR IMAGING Diagnoses Encounter for screening mammogram for breast cancer Procedures KIA SCREENING SCREENING MAMMOGRAPHY BI 2-VIEW BREAST INC Alexx Donahue MD [address] [place] [address] [facility] [address] [place] [address] Referral ID Status Reason Start Date Expiration Date Visits Requested Visits Authorized [id number] Pending Review Auto-Generat ed Referral 09/04/2021 10/04/2022 1 1 [facility] for referral (narrative)* Diagnostic Procedure Only (Urgent) - Closed Specialty Diagnoses / Procedures Referred By Contac t Referred To Contact XR IMAGING Diagnoses Acute pain of left knee Procedures XR KNEE GENERAL 4V AP BOTH/PA BOTH/LAT/MERC LEFT RADIOLOGIC EXAM KNEE COMPLETE 4/MORE VIEWS Deepti Hernandez, TOOLS ADMINISTRATOR.NURSE PRN [address] [place] [id number] [place] [address] Referral ID Status Reason Start Date Expiration Date V isits Requested Visits Authorized [id number] Closed Auto-Generate d Referral 01/16/2023 02/15/2024 1 1 [facility] for referral (narrative)* Diagnostic Procedure Only (Urgent) - Closed Specialty Diagnoses / Procedures Referred By Contac t Referred To Contact XR IMAGING Diagnoses Pain of right thumb Procedures XR DIGIT GENERAL 3V FRONTAL/LAT/OBL RIGHT X-RAY EXAM OF FINGER(S) Danielle Car APRN.NURSE PRN [address] [place] [address] [place] [address] Referral ID Status Reason Start Date Expiration Date V isits Requested Visits Authorized [id number] Closed Auto-Generate d Referral 01/29/2021 02/28/2022 1 1 [facility] for referral (narrative)No reason for referral information availableFranc[facility] Work Phone: Reason for visit Narrative* Diagnostic Procedure Only (Urgent) - Closed Specialty Diagnoses / Procedures Referred By Contac t Referred To Contact XR IMAGING Diagnoses Acute pain of left knee Procedures XR KNEE GENERAL 4V AP BOTH/PA BOTH/LAT/MERC LEFT RADIOLOGIC EXAM KNEE COMPLETE 4/MORE VIEWS Deepti Hernandez, TOOLS ADMINISTRATOR.NURSE PRN [address] [place] [address] [place] [address] Referral ID Status Reason Start Date Expiration Date V isits Requested Visits Authorized [id number] Closed Auto-Generate d Referral 01/16/2023 02/15/2024 1 1 [facility] Narrative* Diagnostic Procedure Only (Urgent) - Closed Specialty Diagnoses / Procedures Referred By Contac t Referred To Contact XR IMAGING Diagnoses Pain of right thumb Procedures XR DIGIT GENERAL 3V FRONTAL/LAT/OBL RIGHT X-RAY EXAM OF FINGER(S) Danielle Car, AMANUEL.NURSE PRN [address] [place] [address] [place] [address] Referral ID Status Reason Start Date Expiration Date V isits Requested Visits Authorized [id number] Closed Auto-Generate d Referral 01/29/2021 02/28/2022 1 1 [facility] Advance Directives No Advanced Directives Records FoundDocuments on File Type Date 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 No July 16, 2024 3:02am Summary Purpose [...] April 26, 2024 7:56am Gastroesophageal reflux disease February 18th, 2025 7:56am Chief Complaint Admit Date palpitations July [...] 2024 8:53am Gastroesophageal reflux disease September 8:53am Chief Complaint Admit Date palpitations July 16, 2024 3:01a m LOWER BACK PAIN October 04, 2024 8:53 am Hypersomnia, SCREENING October 13, 2024 12:00pm Reason for Visit Admit Date Dizziness October 04, 2024 8:53 am Meningioma October 04, 2024 8:53 am Non-compliance October 04, 2024 8:53 am High glucose level October 04, 2024 8:53 am Moderate major depression October 04 8:53am Encounter for screening for malignant ne oplasm of colon October 04, 2024 8:53am Smokes cigarettes October 04, 2024 8:53 am Screening for cardiovascular condition J jackie 2024 8:53am Palpitations October 04, 2024 8:53 am Screening for malignant neoplasm of cerv ix October 04, 2024 8:53am Suspected sleep apnea October 04, 2024 8: 53am Elevated TSH October 04, 2024 8:53 am Chronic low back pain with bilateral sci atica October 04, 2024 8:53am Screening for breast cancer October 04, 025 8:53am Gastroesophageal reflux disease September 8:53am Chief Complaint Admit Date palpitations July 16, 2024 3:01a m LOWER BACK PAIN October 04, 2024 8:53 am Hypersomnia, SCREENING October 13, 2024 12:00pm UPPER AND LOWER- GERD October 19, 2024 2:48pm Reason for Visit Admit Date Dizziness October 04, 2024 8:53 am Meningioma October 04, 2024 8:53 am Non-compliance October 04, 2024 8:53 am High glucose level October 04, 2024 8:53 am Moderate major depression October 04 8:53am Encounter for screening for malignant ne oplasm of colon October 04, 2024 8:53am Smokes cigarettes October 04, 2024 8:53 am Screening for cardiovascular condition J jackie 2024 8:53am Palpitations October 04, 2024 8:53 am Screening for malignant neoplasm of cerv ix October 04, 2024 8:53am Suspected sleep apnea October 04, 2024 8: 53am Elevated TSH October 04, 2024 8:53 am Chronic low back pain with bilateral sci atica October 04, 2024 8:53am Screening for breast cancer October 04 8:53am Gastroesophageal reflux disease September 8:53am Encounter for screening for malignant ne oplasm of colon October 19, 2024 2:48pm Gastroesophageal reflux disease October 072024 2:48pm Suspected sleep apnea October 19, 2024 2:48pm Additional Source Comments Source Comments (unrecognize d section and content) In the event this informatio n is protected by the Federal Confidentiality of Alcohol and Drug Abuse Patient Records regulations: The Federal rules restrict any use of the information to criminally investigate or prosecute any alcohol or drug abuse patient.[facility] Hospital[facility] the event this information is protected by the Federal Confidentiality of Alcohol and Drug Abuse Patient Records regulations: The Federal rules restrict any use of the information to criminally investigate or prosecute any alcohol or drug abuse patient.[facility] HospitalIn the event this information is protected by the Federal Confidentiality of Alcohol and Drug Abuse Patient Records regulations: The Federal rules restrict any use of the information to criminally investigate or prosecute any alcohol or drug abuse patient.[facility] HospitalIn the event this information is protected by the Federal Confidentiality of Alcohol and Drug Abuse Patient Records regulations: The Federal rules restrict any use of the information to criminally investigate or prosecute any alcohol or drug abuse patient.[facility] HospitalIn the event this information is protected by the Federal Confidentiality of Alcohol and Drug Abuse Patient Records regulations: The Federal rules restrict any use of the information to criminally investigate or prosecute any alcohol or drug abuse patient.[facility] HospitalIn the event this information is protected by the Federal Confidentiality of Alcohol and Drug Abuse Patient Records regulations: The Federal rules restrict any use of the information to criminally investigate or prosecute any alcohol or drug abuse patient.[facility] HospitalIn the event this information is protected by the Federal Confidentiality of Alcohol and Drug Abuse Patient Records regulations: The Federal rules restrict any use of the information to criminally investigate or prosecute any alcohol or drug abuse patient.[facility] HospitalIn the event this information is protected by the Federal Confidentiality of Alcohol and Drug Abuse Patient Records regulations: The Federal rules restrict any use of the information to criminally investigate or prosecute any alcohol or drug abuse patient.[facility] HospitalIn the event this information is protected by the Federal Confidentiality of Alcohol and Drug Abuse Patient Records regulations: The Federal rules restrict any use of the information to criminally investigate or prosecute any alcohol or drug abuse patient.[facility] HospitalIn the event this information is protected by the Federal Confidentiality of Alcohol and Drug Abuse Patient Records regulations: The Federal rules restrict any use of the information to criminally investigate or prosecute any alcohol or drug abuse patient.[facility] HospitalIn the event this information is protected by the Federal Confidentiality of Alcohol and Drug Abuse Patient Records regulations: The Federal rules restrict any use of the information to criminally investigate or prosecute any alcohol or drug abuse patient.[facility] HospitalIn the event this information is protected by the Federal Confidentiality of Alcohol and Drug Abuse Patient Records regulations: The Federal rules restrict any use of the information to criminally investigate or prosecute any alcohol or drug abuse patient.[facility] HospitalIn the event this information is protected by the Federal Confidentiality of Alcohol and Drug Abuse Patient Records regulations: The Federal rules restrict any use of the information to criminally investigate or prosecute any alcohol or drug abuse patient.[facility] Care Teams (unrecognized sec tion and content) Photogrammetric Compilation Specialist Relationship Specialty Start Date End Date Alexx Segura MD [address] [place] [address] PCP - General Family Practice 12/30/18 Photogrammetric Compilation Specialist Relationship Specialty Start Date End Date Alexx Segura MD [address], [place] [id number] PCP - General Family Medicine 12/30/18 Photogrammetric Compilation Specialist Relationship Specialty Start Date End Date Alexx Segura MD [address], [place] [id number] PCP - General Family Medicine 12/30/18 Photogrammetric Compilation Specialist Relationship Specialty Start Date End Date Pcp, No, TOOLS ADMINISTRATOR PCP - General Adult Health 05/13/23 12/07/23 Photogrammetric Compilation Specialist Relationship Specialty Start Date End Date Pcp, No, TOOLS ADMINISTRATOR PCP - General Adult Health 05/13/23 12/07/23 Photogrammetric Compilation Specialist Relationship Specialty Start Date End Date Alexx Segura MD [address], [place] [id number] PCP - General Family Medicine 12/30/18 05/12/23 [...] July 16, 2024 End: July 16, 2024 Photogrammetric Compilation Specialist Relationship Specialty Start Date End Date Kary Galindo MD [address] [place] [phone] Referring Neurology 06/09/24 Photogrammetric Compilation Specialist Relationship Specialty Start Date End Date Kary Galindo MD [address] [place] [phone] Referring Neurology 06/09/24 Photogrammetric Compilation Specialist Relationship Specialty Start Date End Date Kary Galindo MD [address] [place] [phone] Referring Neurology 06/09/24 Team Status: Active Member [...] October 04, 2024 End: October 04, 2024 Team Status: Active Member Role/Relationship Status Dates Dr. Savita Ahn MD Primary Care Provider Active Start: October 05, 2024 Dr. Savita Ahn MD Attending Provider Active Start: October 05, 2024 Team Status: Inactive Member Role/Relationship Status Dates Dr. Savita Ahn MD Primary Care Provider Active Start: October 13, 2024 End: October 13, 2024 Dr. Savita Ahn MD Attending Provider Active Start: October 13, 2024 End: October 13, 2024 Dr. Savita Ahn MD Referring Provider Active Start: October 13, 2024 End: October 13, 2024 Team Status: Inactive Member Role/Relationship Status Dates Dr. Savita Ahn MD Primary Care Provider Active Start: October 19, 2024 End: October 19, 2024 Dr. Savita Ahn MD Referring Provider Active Start: October 19, 2024 End: October 19, 2024 Dr. Natalio Thibodeaux MD Attending Provider Active Start: October 19, 2024 End: October 19, 2024 Team Status: Inactive Member Role/Relationship Status Dates Dr. Savita Ahn MD Primary Care Provider Active Start: October 05, 2024 End: October 05, 2024 Dr. Savita Ahn MD Attending Provider Active Start: October 05, 2024 End: October 05, 2024 Reason for Visit (unrecogniz ed section [...] section and content) DATE CREATED AUTHOR 06/27/2024 [facility] DATE CREATED AUTHOR AUTHOR'S ORGANIZ ATION 08/18/2024 [facility] DATE CREATED AUTHOR AUTHOR'S ORGANIZ ATION 08/30/2024 [facility] DATE CREATED AUTHOR AUTHOR'S ORGANIZ ATION 10/21/2024 [facility] Goals (unrecognized section and content) Goals [...] BE BASED ON THE PRIMARY CLINICAL RECORDS. [employer] provides no warranty or guarantee of the accuracy or completeness of information in this document.
== END | disposition home or self-care (01) ==
LOC: SL 19:58
PROVIDERS: PCP Internal Medicine; Referring Provider Internal Medicine; Visit Provider Internal Medicine
DX: G47.33 Obstructive sleep apnea (adult) (pediatric) (principal)
CPT/HCPCS: 95811

== ENCOUNTER → 2024-11-17 | Outpatient (CLI) | payer MEDICAID, SELFPAY | END | disposition home or self-care (01) | LOC: SL 15:44 | PROVIDERS: PCP Internal Medicine; Visit Provider Internal Medicine | DX: Z46.89 Encounter for fitting and adjustment of other specified devices (principal) ==

== ENCOUNTER → 2024-12-30 | Outpatient (CLI) | payer MEDICAID, SELFPAY ==
[2024-12-30 19:04] LABS: Free T3 3.5 pg/mL (2.18-3.98)
== END | disposition home or self-care (01) ==
LOC: MTLAB 14:43
PROVIDERS: PCP Internal Medicine; Referring Provider Nurse Practitioner Family; Visit Provider Nurse Practitioner Family
DX: E11.9 Type 2 diabetes mellitus without complications (principal); M79.2 Neuralgia and neuritis, unspecified; R42 Dizziness and giddiness; R53.83 Other fatigue; E46 Unspecified protein-calorie malnutrition
CPT/HCPCS: 36415; 83036; 84439; 84443; 84481

== ENCOUNTER → 2025-01-30 | Outpatient (CLI) | payer MEDICAID, SELFPAY ==
--- NOTE | 2025-01-30 14:28 | MRI_ITS ---
PROCEDURE: SPINE LUMBAR (ROUTINE) 01/30/2025 REASON FOR EXAM: LOW BACK PAIN TECHNIQUE: Procedure Code: MRISPL Modality: MR Procedure: SPINE LUMBAR (ROUTINE) COMPARISON: MRI lumbar spine 12/28/2023 FINDINGS: For the purposes of this report, the most caudal rectangular vertebral body will be designated L5. The next most caudal trapezoidal shaped vertebral body will be designated S1. The intervening disc at the lumbosacral angle is designated L5-S1. The normal lumbar lordosis is maintained. The lumbar vertebral bodies are normal in height. The lumbar vertebral bodies are normal in alignment. There is no bone marrow replacing lesion in the lumbar spine. Redemonstration of mildly diffuse hypointense bone marrow signal which may be secondary to bone marrow replacement. Multilevel disc desiccation. There is no evidence of signal abnormality in the imaged distal spinal cord. The conus medullaris terminates at the level of L1. T12-L1: No significant spinal canal stenosis neural foraminal narrowing. L1-L2: No significant spinal canal stenosis or neural foraminal narrowing. L2-L3: No significant spinal canal stenosis neural foraminal narrowing. L3-L4: Disc bulge flattens the ventral thecal sac. Bilateral facet joint arthrosis and ligamentum flavum hypertrophy. No significant neural foraminal narrowing. L4-L5: Disc bulge flattens the ventral thecal sac. Bilateral facet joint arthrosis and ligamentum flavum hypertrophy. No significant neural foraminal narrowing. L5-S1: Disc bulge, bilateral facet joint arthrosis, and ligamentum flavum hypertrophy. No significant spinal canal stenosis or neural foraminal narrowing. 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 MRI/Spine Lumbar (Routine) IMPRESSION: Compared to MRI of the lumbar spine 12/28/2023, stable lumbar spondylosis witho ut high-grade spinal canal or neural foraminal stenosis. Reading Location: [id number]
== END | disposition home or self-care (01) ==
LOC: MRI 14:19
PROVIDERS: PCP Internal Medicine; Referring Provider Nurse Practitioner Family; Visit Provider Nurse Practitioner Family
DX: M54.16 Radiculopathy, lumbar region (principal); M47.9 Spondylosis, unspecified
CPT/HCPCS: 72148